=== PATIENT | female | born 1945 | race Caucasian/White ===

== ENCOUNTER → 2017-08-18 12:41 | Outpatient (CLI) | payer OTHER, SELFPAY ==
[2017-08-18 14:32] LABS: Hemoglobin A1c 10.1 % (4.2-6.3)
[2017-08-18 14:35] LABS: AST(SGOT) 22 U/L (15-37); Alanine Aminotransfer ALT/SGPT 31 U/L (13-56); Albumin, Serum 3.8 g/dL (3.2-5.0); Alkaline Phosphatase 73 U/L (45-117); Anion Gap 9 (5-15); BUN 25 mg/dL (7-18); Calcium,Total 9.1 mg/dL (8.5-10.1); Chloride 106 mmol/L (98-107); Creatinine, Serum 1.19 mg/dL (0.55-1.02); EST Glomerular Filtration Rate 48 mL/min (>60); Est Glom Filt Rate - Afr Amer 58 mL/min (>60); Glucose 127 mg/dL (74-106); Protein, Total 7.8 g/dL (6.4-8.2); Sodium Level 141 mmol/L (136-145)
== END ==
PROVIDERS: Family Provider Family Medicine; PCP Family Medicine; Visit Provider Family Medicine
DX: E11.9 Type 2 diabetes mellitus without complications (principal)
CPT/HCPCS: 36415; 80053; 83036

== ENCOUNTER → 2018-06-23 10:56 | Outpatient (CLI) | payer OTHER, SELFPAY ==
[2018-06-23 10:11] VITALS: BMI 44.8
[2018-06-23 12:31] LABS: Absolute Lymphocyte Count 2.56 X10^3/ul (0.83-4.51); Absolute Neutrophil Count 5.1 X10^3/uL (2.0-7.7); Basophil# 0.02 X10^3/uL; Basophil% 0.2 % (0-1); Eosinophil# 0.14 X10^3/uL; Eosinophils% 1.6 % (0-5); Hematocrit 43.4 % (37-47); Hemoglobin 14.2 g/dl (12.0-15.0); Lymphocyte # 2.56 X10^3/ul (4.0); Lymphocyte % 30.1 % (19-41); Mean Corp Hgb Conc 32.7 g/gl (32-36); Mean Corpuscular Hgb 29.2 pg (27.0-32.0); Mean Corpuscular Volume 89.1 fL (81-99); Mean Platelet Vol. 12.3 fl (6.2-12.0); Monocyte# 0.63 X10^3/uL; Monocyte% 7.4 % (0-10); Neutrophil # 5.14 X10^3/uL (2.7-7.7); Neutrophil % 60.5 % (47-70); Platelet Count 278 K/mm3 (150-450); RBC Distribution Width CV 13.7 % (11.6-14.6); RBC Distribution Width SD 44.2 fl (35.1-43.9); Red Blood Count 4.87 M/mm3 (4.2-5.4); White Blood Count 8.5 K/mm3 (4.4-11.0)
[2018-06-23 12:36] LABS: POSITIVE COUNT NO; POSITIVE DIFFERENTIAL NO; POSITIVE MORPHOLOGY NO
[2018-06-23 12:52] LABS: Hemoglobin A1c 10.2 % (4.2-6.3)
== END ==
PROVIDERS: Family Provider Family Medicine; PCP Family Medicine; Visit Provider Nurse Practitioner Family
DX: E11.621 Type 2 diabetes mellitus with foot ulcer (principal); L97.509 Non-pressure chronic ulcer of other part of unspecified foot with unspecified severity
CPT/HCPCS: 36415; 83036; 85025

== ENCOUNTER 2018-07-08 09:15 | Outpatient (RCR) | payer SELFPAY ==
[2018-06-23 10:11] VITALS: BMI 44.8
[2018-07-01 09:10] VITALS: BP 142/63; PULSE 87; RESP 18; TEMP 36.1; BMI 39.4
--- NOTE | 2018-07-01 12:50 | PCM.WC.HP ---
(1) Ulcer of right foot with fat layer exposed Status: Acute Current Visit: Yes Code(s): L97.512 - Non-pressure chronic ulcer of other part of right foot with fat layer exposed (2) Type 2 diabetes mellitus with diabetic polyneuropathy Status: Acute Current Visit: Yes Code(s): E11.42 - Type 2 diabetes mellitus with diabetic polyneuropathy (3) PVD (peripheral vascular disease) Status: Suspected Current Visit: Yes Code(s): I73.9 - Peripheral vascular disease, unspecified (4) Lower extremity edema Status: Acute Current Visit: Yes Code(s): R60.0 - Localized edema (5) Venous insufficiency Status: Suspected Current Visit: Yes Code(s): I87.2 - Venous insufficiency (chronic) (peripheral) (6) Delayed wound healing Status: Acute Current Visit: Yes Code(s): T14.8XXD - Other injury of unspecified body region, subsequent encounter History of Present Illness Date of Service: 07/01/18 Chief Complaint: right dorsal foot ulcer History of Wound: This 73-year-old diabetic female who was referred to the wound healing center for a dorsal distal right foot ulcer. Patient was referred to clinic by Theodore Gallardo. The patient states the ulcer has been present for a little over 2 weeks. She is unsure what caused the ulcer to start in the first place. She says she initially noticed a small ulcer starting that continued to get larger over the course of the first week. She says since, the ulcer site has remained relatively stable and has not increased any more in the surrounding redness has subsided. Patient has been dressing the ulcer site with Lotus and has been taking an antibiotic that was prescribed by Theodore Gallardo. Patient currently denies any feelings of nausea, vomiting, fever, chills. Past Medical History Past Medical History: Chronic Problems (Last Reviewed 06/23/18 @ 10:11 by Lori Maurice) Obesity (BMI 30-39.9) (Chronic) Spinal stenosis, lumbar (Chronic) Type 2 diabetes mellitus (Chronic) Allergies/Adverse Reactions: Allergies No Known Allergies Allergy (Unverified 08/14/17 15:26) Home Medications: Ambulatory Orders Medication Instructions Recorded blood sugar diagnostic strips See Dose Instructions .ROUTE 08/14/17 .MEDSUPPLY #20 ea insulin aspar prt-insulin aspart 24 unit SC BID #40 ml 08/18/17 100 unit/mL (70-30) subcutaneous soln insulin syringe U-100 with needle See Dose Instructions .ROUTE 08/18/17 0.5 mL 30 gauge x 1/2 .MEDSUPPLY #100 ea sitagliptin 50 mg-metformin 1,000 1 tab PO QDAY #90 tab 08/18/17 mg tablet amoxicillin 875 mg-potassium 1 tab PO BID #20 tab 06/23/18 clavulanate 125 mg tablet Smoking Status: Never smoker Review of Systems Constitutional: Denies: Chills, Fever, Weight Change Cardiovascular: Denies: Chest Pain, Palpitations Respiratory: Denies: Cough, Shortness of Breath Gastrointestinal: Denies: Diarrhea, Nausea, Vomiting Skin: Reports: - - Right dorsal foot ulcer - Physical Exam Vital Signs Temp Pulse Resp BP 96.9 F L 87 18 142/63 H 07/01/18 09:10 07/01/18 09:10 07/01/18 09:10 07/01/18 09:10 General: Alert, Oriented x3, Cooperative, No apparent distress Extremities: No cyanosis, Capillary Refill Less than 3 Seconds - To all distal digits of the right foot, No Calf Tenderness - Negative Heidy and Choi signs, Diminished Peripheral Pulses, Edema - Bilateral lower extremity edema Skin: Ulcer/ Wound - Ulcer with fat layer exposed noted to the dorso distal aspect of the right foot just proximal to the second and third toes. Ulcer base is a mixture of adherent slough, fibrotic tissue, biofilm, granular tissue, and some slight surrounding hyperkeratotic tissue. There is no purulence, no streaking cellulitis, no significant increase in warmth, no probing to bone, no tracking, and no undermining at this time. Surrounding skin is hairless and atrophic. Wound Measurements and Assessment WC - Nurse 1 - General Ulcer Measurement Start: 07/01/18 09:10 Freq: Status: Active Protocol: Activity Type Activity Date Activity User E-Sign Co-Sign Detail Recorded Client Recorded Date Recorded By Document 07/01/18 09:30 EVAN [id number] 07/01/18 09:31 EVAN 07/01/18 09:30 Wound Center Nurse 1 [Ulcer Assessment] 1-right dorsal foot -Combined with other wound No -Current Size (cm) - Length 1.2 -Current Size (cm) - Width 1.8 -Current Size (cm) - Depth 0.1 -Total Square Cm 2.16 -Photo Taken Yes -Epithelialization None Present -Tunneling No -Undermining/Tunneling No -Circular Undermining No -Exudate Amt Small -Exudate Type Serosanguineous -Wound Margin Flat & Intact -Granulation Amt None Present (0 %) -Slough/Fibrin Yes -Necrosis Amt Large (67-100%) -Necrotic Tissue Type Adherent Slough -Structure Exposed N/A -Texture (Becky-wound Skin Appearance) Assessed Localized Edema -Moisture (Becky-wound Skin Appearance Assessed ) Dry/Scaly -Color (Becky-wound Skin Appearance) Assessed Hemosiderin Staining -Temperature (Becky-wound Skin No Abnormality Appearance) (Pt Warm) -Tenderness on Palpation (Becky-wound No Skin Appearance) -Ulcer Cleansing Rinsed/ Irrigated with Saline -Foul Odor after Cleansing No -Anesthetic Used 5% Lidocaine Gel [Edema Assessment] -Lower Limb Edema Present Yes -Right Calf (cm) 47.2 -Right Ankle (cm) 22.8 -Left Calf (cm) 46.2 -Left Ankle (cm) 23.1 WC - Nurse 2 - General Ulcer CM Notes Start: 07/01/18 09:10 Freq: Status: Active Protocol: Activity Type Activity Date Activity User E-Sign Co-Sign Detail Recorded Client Recorded Date Recorded By Document 07/01/18 09:51 AN [id number] 07/01/18 10:09 AN 07/01/18 09:51 Wound Center Nurse 2 [Procedure/Treatment] 1-right dorsal foot -Time 09:58 -Correct Patient Yes -Correct Side, Site, Position Yes -Correct Procedure Yes -Procedure Performed Yes -Type of Procedure Debridement -Clinical Debridement Subcutaneous -Post Debridement Size (cm) - Length 1.1 -Post Debridement Size (cm) - Width 1.4 -Post Debridement Size (cm) - Depth 0.2 -Total Square Cm 1.54 -Wound/Ulcer Outcome Not Healed -Ulcer Cleansing Rinsed/ Irrigated with Saline -Foul Odor after Cleansing No -Bioengineered Tissue No -Bleeding Controlled with Pressure -Offloading Yes -Type of Offloading Surgical Shoe -Treatment Response Procedure Tolerated Well [See Physician Procedure note for Specifics] Pain Scale: 0-10 Numeric [Pain] -Is Patient Pain Free? Yes Musculoskeletal: No Tenderness to Palpation of Joints or Extremities Neurological: - - Epicritic sensation grossly absent to lower extremities Psych/Mental Status: Normal Affect, Appropriate Debridement Note Post-Debridement Measurements/Treatment WC - Nurse 2 - General Ulcer CM Notes Start: 07/01/18 09:10 Freq: Status: Active Protocol: Activity Type Activity Date Activity User E-Sign Co-Sign Detail Recorded Client Recorded Date Recorded By Document 07/01/18 09:51 AN [id number] 07/01/18 10:09 AN 07/01/18 09:51 Wound Center Nurse 2 1-right dorsal foot -Time 09:58 -Correct Patient Yes -Correct Side, Site, Position Yes -Correct Procedure Yes -Procedure Performed Yes -Type of Procedure Debridement -Clinical Debridement Subcutaneous -Post Debridement Size (cm) - Length 1.1 -Post Debridement Size (cm) - Width 1.4 -Post Debridement Size (cm) - Depth 0.2 -Total Square Cm 1.54 -Wound/Ulcer Outcome Not Healed -Ulcer Cleansing Rinsed/ Irrigated with Saline -Foul Odor after Cleansing No -Bioengineered Tissue No -Bleeding Controlled with Pressure -Offloading Yes -Type of Offloading Surgical Shoe -Treatment Response Procedure Tolerated Well Pain Scale: 0-10 Numeric Is Patient Pain Free? Yes Assessment/Plan Active Problems (Last Reviewed 06/23/18 @ 10:11 by Lori Maurice) Ulcer of right foot with fat layer exposed (Acute) Type 2 diabetes mellitus with diabetic polyneuropathy (Acute) Lower extremity edema (Acute) Delayed wound healing (Acute) Assessment: Ulcer right foot with fat layer exposed. DM with neuropathy. PVD. Lower extremity edema. Other comorbidities Plan: Initial patient examination and evaluation was performed today. Some of the overlying tissue was carefully removed manually. No aggressive debridement was performed today since the patient's blood flow is not completely known. Ulcer site was carefully dressed with Aquacel Ag followed by dry sterile dressing. Patient is to have the dressing change in this manner on a daily basis. She was instructed to not soak her foot. Patient was also dispensed a surgical shoe that we will keep the ulcer site completely offloaded. She was instructed to keep any kind of pressure away from the ulcer site. Patient currently on antibiotics per Theodore Gallardo. Patient had CBC taken last week and there was no leukocytosis noted. Patient's hemoglobin A1c was 10.8. The importance of tight glycemic control was discussed in great detail with the patient today. I also recommend nutritional supplementation with a high protein diet in order to help optimize ulcer healing potential. LEAS and Venous doppler exams ordered today and we will continue to monitor for these results. Patient was educated on all signs and symptoms of local and systemic infection, and she was instructed to go to the emergency room immediately should she notice any of these before next visit. All questions were answered to the patient and her family satisfaction. Patient will follow back up at the wound healing center in 1 week to check on progress, or sooner if needed before then.
[2018-07-08 09:42] VITALS: BP 158/70; PULSE 84; RESP 16; TEMP 36.3; BMI 39.4
--- NOTE | 2018-07-08 09:59 | PCM.WC.PN ---
(1) Ulcer of right foot with fat layer exposed Status: Acute Current Visit: Yes Code(s): L97.512 - Non-pressure chronic ulcer of other part of right foot with fat layer exposed (2) Type 2 diabetes mellitus with diabetic polyneuropathy Status: Acute Current Visit: Yes Code(s): E11.42 - Type 2 diabetes mellitus with diabetic polyneuropathy (3) PVD (peripheral vascular disease) Status: Suspected Current Visit: Yes Code(s): I73.9 - Peripheral vascular disease, unspecified (4) Lower extremity edema Status: Acute Current Visit: Yes Code(s): R60.0 - Localized edema (5) Venous insufficiency Status: Suspected Current Visit: Yes Code(s): I87.2 - Venous insufficiency (chronic) (peripheral) (6) Delayed wound healing Status: Acute Current Visit: Yes Code(s): T14.8XXD - Other injury of unspecified body region, subsequent encounter Type of Wound Chief Complaint: right dorsal foot ulcer History of Wound: This 73-year-old diabetic female who was referred to the wound healing center for a dorsal distal right foot ulcer. Patient was referred to clinic by Theodore Gallardo. The patient states the ulcer has been present for a little over 2 weeks. She is unsure what caused the ulcer to start in the first place. She says she initially noticed a small ulcer starting that continued to get larger over the course of the first week. She says since, the ulcer site has remained relatively stable and has not increased any more in the surrounding redness has subsided. Patient has been dressing the ulcer site with Lotus and has been taking an antibiotic that was prescribed by Theodore Gallardo. Patient currently denies any feelings of nausea, vomiting, fever, chills. Progress of Wound: Ulcer slightly larger in appearance this week. Patient has had daily aquacel ag dressing changes. Deny any signs of local infection. Denies any nausea, vomiting, fever, or chills. - Physical Exam Vital Signs Temp Pulse Resp BP 97.3 F L 84 16 158/70 H 07/08/18 09:42 07/08/18 09:42 07/08/18 09:42 07/08/18 09:42 General: Alert, Oriented x3, Cooperative, No apparent distress Extremities: No cyanosis, Capillary Refill Less than 3 Seconds - To all distal digits of the right foot, No Calf Tenderness - Negative Heidy and Choi signs, Diminished Peripheral Pulses, Edema - Bilateral lower extremity edema Skin: Ulcer/ Wound - Ulcer with fat layer exposed noted to the dorso distal aspect of the right foot just proximal to the second and third toes. Ulcer base is a mixture of adherent slough, fibrotic tissue, biofilm, granular tissue, and some slight surrounding hyperkeratotic tissue. There is no purulence, no streaking cellulitis, no significant increase in warmth, no probing to bone, no tracking, and no undermining at this time. Surrounding skin is hairless and atrophic. Wound Measurements and Assessment WC - Nurse 1 - General Ulcer Measurement Start: 07/01/18 09:10 Freq: Status: Active Protocol: Activity Type Activity Date Activity User E-Sign Co-Sign Detail Recorded Client Recorded Date Recorded By Document 07/08/18 09:42 EVAN [id number] 07/08/18 09:44 EVAN 07/08/18 09:42 Wound Center Nurse 1 [Ulcer Assessment] 1-right dorsal foot -Combined with other wound No -Current Size (cm) - Length 1.8 -Current Size (cm) - Width 1.8 -Current Size (cm) - Depth 0.1 -Total Square Cm 3.24 -Photo Taken No -Epithelialization Small 1-33% -Tunneling No -Undermining/Tunneling No -Circular Undermining No -Exudate Amt Small -Exudate Type Serosanguineous -Wound Margin Flat & Intact -Granulation Amt None Present (0 %) -Slough/Fibrin Yes -Necrosis Amt Large (67-100%) -Necrotic Tissue Type Adherent Slough -Structure Exposed N/A -Texture (Becky-wound Skin Appearance) Assessed -Moisture (Becky-wound Skin Appearance Assessed ) Dry/Scaly -Color (Becky-wound Skin Appearance) Assessed Erythema -Temperature (Becky-wound Skin No Abnormality Appearance) (Pt Warm) -Tenderness on Palpation (Becky-wound No Skin Appearance) -Ulcer Cleansing Rinsed/ Irrigated with Saline -Foul Odor after Cleansing No -Anesthetic Used 4% Lidocaine Solution [Edema Assessment] -Lower Limb Edema Present NA - Nurse 2 - General Ulcer CM Notes Start: 07/01/18 09:10 Freq: Status: Active Protocol: Activity Type Activity Date Activity User E-Sign Co-Sign Detail Recorded Client Recorded Date Recorded By Document 07/08/18 09:49 EVAN [id number] 07/08/18 09:52 JF 07/08/18 09:49 Wound Center Nurse 2 [Procedure/Treatment] 1-right dorsal foot -Time 09:49 -Correct Patient Yes -Correct Side, Site, Position Yes -Correct Procedure Yes -Procedure Performed Yes -Type of Procedure Debridement -Clinical Debridement Subcutaneous -Post Debridement Size (cm) - Length 1.9 -Post Debridement Size (cm) - Width 1.9 -Post Debridement Size (cm) - Depth 0.3 -Total Square Cm 3.61 -Wound/Ulcer Outcome Not Healed -Ulcer Cleansing Rinsed/ Irrigated with Saline -Foul Odor after Cleansing No -Bioengineered Tissue No -Bleeding Controlled with Pressure -Offloading Yes -Type of Offloading Surgical Shoe -Treatment Response Procedure Tolerated Well [See Physician Procedure note for Specifics] Pain Scale: 0-10 Numeric [Pain] -Is Patient Pain Free? Yes Musculoskeletal: No Tenderness to Palpation of Joints or Extremities Neurological: - - Epicritic sensation grossly absent to lower extremities Psych/Mental Status: Normal Affect, Appropriate Debridement Note Post-Debridement Measurements/Treatment WC - Nurse 2 - General Ulcer CM Notes Start: 07/01/18 09:10 Freq: Status: Active Protocol: Activity Type Activity Date Activity User E-Sign Co-Sign Detail Recorded Client Recorded Date Recorded By Document 07/01/18 09:51 AN [id number] 07/01/18 10:09 AN Document 07/08/18 09:49 JF [id number] 07/08/18 09:52 JF 07/01/18 07/08/18 09:51 09:49 Wound Center Nurse 2 1-right dorsal foot -Time 09:58 09:49 -Correct Patient Yes Yes -Correct Side, Site, Position Yes Yes -Correct Procedure Yes Yes -Procedure Performed Yes Yes -Type of Procedure Debridement Debridement -Clinical Debridement Subcutaneous Subcutaneous -Post Debridement Size (cm) - Length 1.1 1.9 -Post Debridement Size (cm) - Width 1.4 1.9 -Post Debridement Size (cm) - Depth 0.2 0.3 -Total Square Cm 1.54 3.61 -Wound/Ulcer Outcome Not Healed Not Healed -Ulcer Cleansing Rinsed/ Rinsed/ Irrigated with Irrigated with Saline Saline -Foul Odor after Cleansing No No -Bioengineered Tissue No No -Bleeding Controlled with Pressure Pressure -Offloading Yes Yes -Type of Offloading Surgical Shoe Surgical Shoe -Treatment Response Procedure Procedure Tolerated Well Tolerated Well Pain Scale: 0-10 Numeric Is Patient Pain Free? Yes Yes Wound debrided: Right dorsal distal foot Laterality: Right Type of Debridement: Excisional debridement Anesthesia Used: 4% Lidocaine Solution Depth: in the subcutaneous layer Percentage of wound debrided: 100 Instrument Used: 3mm curette Tissue Removed: Adherent slough, fibrin, biofilm, hyperkeratotic tissue Severity: Fat Layer Exposed Amount of bleeding with debridement: Mild Bleeding Controlled with: Pressure Patient tolerated procedure well Assessment/Plan Active Problems (Last Reviewed 06/23/18 @ 10:11 by Lori Maurice) Ulcer of right foot with fat layer exposed (Acute) Type 2 diabetes mellitus with diabetic polyneuropathy (Acute) Lower extremity edema (Acute) Delayed wound healing (Acute) Assessment: Ulcer right foot with fat layer exposed. DM with neuropathy. PVD. Lower extremity edema. Other comorbidities Plan: Patient was carefully examined and evaluated again today with a family member present in the room. A subcutaneous debridement was performed as noted in the clinical panel. Ulcer site was carefully dressed with Lotus followed by dry sterile dressing. Patient is to have the dressing changed in this manner on a daily basis. She was instructed to not soak her foot. Patient is to continue with surgical shoe to keep the ulcer site completely offloaded. She was instructed to keep any kind of pressure away from the ulcer site. Patient had CBC taken last week and there was no leukocytosis noted. Patient's last hemoglobin A1c was 10.8. The importance of tight glycemic control was discussed again today. I also recommend nutritional supplementation with a high protein diet in order to help optimize ulcer healing potential. LEAS and Venous doppler exams ordered and she will have these performed on July 13. We will continue to monitor for these results. Patient was educated on all signs and symptoms of local and systemic infection, and she was instructed to go to the emergency room immediately should she notice any of these before next visit. All questions were answered to the patient and her family satisfaction. Patient will follow back up at the wound healing center in 1 week to check on progress, or sooner if needed before then.
== END 2018-07-09 23:59 ==
LOC: WC 09:15
PROVIDERS: Family Provider Family Medicine; PCP Family Medicine; Visit Provider Podiatrist
DX: E11.621 Type 2 diabetes mellitus with foot ulcer (principal); L97.512 Non-pressure chronic ulcer of other part of right foot with fat layer exposed; E11.42 Type 2 diabetes mellitus with diabetic polyneuropathy; E11.51 Type 2 diabetes mellitus with diabetic peripheral angiopathy without gangrene; R60.0 Localized edema; I87.2 Venous insufficiency (chronic) (peripheral); E66.9 Obesity, unspecified; Z68.39 Body mass index [BMI] 39.0-39.9, adult; Z71.3 Dietary counseling and surveillance; Z79.899 Other long term (current) drug therapy; Z79.4 Long term (current) use of insulin
CPT/HCPCS: 11042; 99203; G0463

== ENCOUNTER 2018-08-04 08:32 | Day surgery (SDC) | payer OTHER, SELFPAY ==
[2018-07-15 09:13] VITALS: BMI 39.4
[2018-07-29 09:36] VITALS: BMI 39.4
[2018-08-02 14:31] VITALS: BMI 40.7
[2018-08-04 08:46] LABS: Hematocrit 41.9 % (37-47); Hemoglobin 13.8 g/dl (12.0-15.0); Mean Corp Hgb Conc 32.9 g/gl (32-36); Mean Corpuscular Hgb 29.9 pg (27.0-32.0); Mean Corpuscular Volume 90.7 fL (81-99); Platelet Count 305 K/mm3 (150-450); RBC Distribution Width CV 14.1 % (11.6-14.6); RBC Distribution Width SD 46.1 fl (35.1-43.9); Red Blood Count 4.62 M/mm3 (4.2-5.4); Scan Indicated on CBC? Y/N NO; White Blood Count 9.6 K/mm3 (4.4-11.0)
[2018-08-04 08:58] LABS: Albumin, Serum 3.7 g/dL (3.2-5.0); BUN 22 mg/dL (7-18); BUN/Creat Ratio 21.8 RATIO (10-20); Calcium,Total 9.2 mg/dL (8.5-10.1); Chloride 109 mmol/L (98-107); Creatinine, Serum 1.01 mg/dL (0.55-1.02); EST Glomerular Filtration Rate 57 mL/min (>60); Est Glom Filt Rate - Afr Amer 70 mL/min (>60); Estimated Creatinine Clearance 45.97 ml/min; Glucose 187 mg/dL (74-106); Phosphorus 3.6 mg/dL (2.5-4.9); Potassium 4.5 mmol/L (3.5-5.1); Sodium Level 141 mmol/L (136-145)
--- NOTE | 2018-08-04 11:24 | PCM.OPRPT ---
Problem List (1) PVD (peripheral vascular disease) Status: Suspected Report of Operation Date of Procedure: 08/04/18 Pre-Operative Diagnosis: with slow healing ulcer with PAD Post-Operative Diagnosis: Same Surgery/Procedure Performed:: 1. Ultrasound-guided access retrograde left common femoral artery. 2. Right lower extremity angiogram with catheter placed past the third order into the anterior tibial artery. 3. Balloon angioplasty of the anterior tibial artery with a 2.5 to 3 mm balloon. 4. Closure with Star close Type of Anesthesia:: Sedation,Conscious Description of Procedure: Patient brought to the Clinical Implementation Specialist. Underwent the appropriate timeout consent. Underwent sedation. Was prepped and draped in a sterile fashion. We did ultrasound-guided access retrograde in the left common femoral artery and put in a 5 German sheath. We got up and over the bifurcation did an angiogram from the right external iliac artery. This showed the distal external iliac artery through the common femoral, through the profunda, through the SFA was widely patent. Mild disease at the adductor but minimal and no flow-limiting through here. We put a quick cross catheter down into the distal SFA and imaged from there. So the popliteal artery was patent throughout its entire length. Some plaque into the tibioperoneal trunk but appeared adequate flow through this. Posterior tibial artery appeared occluded throughout. Peroneal appear to be patent all the way to the ankle and branched anterior and posterior. Anterior tibial artery was patent proximally then occluded and then recanalized distally. We then gave 5000 units of heparin brought in the long 6 German sheath. Using a Glidewire and quick cross we got through the occlusion. We confirm that we are in the distal anterior tibial artery. We replaced an 014 wire. We then ballooned with a 2.5 to 3 mm x 220 balloon. We inflated this for over 3 minutes. Completion was markedly improved with great flow through this into the DP. Peroneal still had good flow. Next segmental branches of the distal peroneal were little bit smaller. Posterior tibial artery was still occluded. We then removed out the sheath deployed a Star closed with good hemostasis she was then brought to recovery stable condition. Sedation: This 73-year-old female underwent moderate sedation given by Dr. Jose Fry. She was moderate EKG blood pressure and pulse ox for over the 30 minutes of the procedure. See the EMR for the complete record.
== END 2018-08-04 15:30 | disposition home or self-care (01) ==
PROVIDERS: Family Provider Family Medicine; PCP Family Medicine; Referring Provider Surgery Vascular Surgery; Visit Provider Surgery Vascular Surgery
DX: I70.238 Atherosclerosis of native arteries of right leg with ulceration of other part of lower leg (principal); I73.9 Peripheral vascular disease, unspecified; E11.9 Type 2 diabetes mellitus without complications; M19.90 Unspecified osteoarthritis, unspecified site; Z79.02 Long term (current) use of antithrombotics/antiplatelets; Z79.4 Long term (current) use of insulin
CPT/HCPCS: 36245; 36415; 37228; 75710; 76937; 80069; 85027; 99152; 99153; J7040; Q9967; C1725; C1760; C1769; C1887; C1894

== ENCOUNTER 2018-08-05 10:00 | Outpatient (RCR) | payer OTHER, SELFPAY ==
[2018-07-10 01:25] VITALS: BP 158/70; PULSE 84; RESP 16; TEMP 36.3
--- NOTE | 2018-07-13 06:58 | VDLE_ITS ---
Reason For Study: venous insufficiency, edema, ulcer RIGHT LEFT CFV is compressible, spontaneous, phasic, CFV is compressible, spontaneous, phasic, competent and demonstrates normal competent, and demonstrates normal augmentation. augmentation. FV is compressible, spontaneous, phasic, FV is compressible, spontaneous, phasic, competent and demonstrates normal competent and demonstrates normal augmentation. augmentation. POP V is compressible, spontaneous, phasic, POP V is compressible, spontaneous, phasic, competent and demonstrates normal competent and demonstrates normal augmentation. augmentation. T/P Trunk is compressible. T/P Trunk is compressible. PTV is compressible. PTV is compressible. RT PerV is compressible. LT PerV is compressible. S-F Junction is competent. S-F Junction is incompetent for greater GSV is competent above the knee, but than .5 seconds. incompetent below the knee for greater GSV is incompetent for greater than .5 than .5 seconds. GSV measures .37 x .44 cm. seconds throughout. GSV measures .95 x .97 SSV demonstrates chronic SVT. SSV is cm. incompetent for greater than .5 seconds. SSV SSV is incompetent for greater than .5 measures .9 x .94 cm. seconds. SSV measures .27 x .27 cm. Technical Services Manager Vein 13 cm proximal to the medial Technical Services Manager Vein 10 cm proximal to the medial malleolus is incompetent for greater than .5 malleolus is incompetent for greater than .5 seconds. seconds. Varicose veins demonstrate chronic SVT. Varicose veins demonstrate chronic SVT. Procedure Exam performed in department. Patient was scanned in reverse Trendelenburg position during reflux assessment. The exam was diagnostic. Interpretation Summary Deep veins of the lower extremities are bilaterally patent and compressible segmentally. There is no evidence of deep vein thrombosis on either side. Valvular competence appears intact within the proximal deep venous systems bilaterally. The greater saphenous veins appear bilaterally patent and compressible segmentally. The right sapheno-femoral junction is competent . The left sapheno-femoral junction is incompetent . The right greater saphenous vein appears competent above the knee. The right greater saphenous vein appears incompetent below the knee. The left greater saphenous vein appears segmentally incompetent. The right small saphenous vein is incompetent, and demonstrates chronic venous changes consistent with chronic superficial thrombophlebitis. The left small saphenous vein is incompetent. An incompetent manager process vein is identified in the right calf, located 13 centimeters proximal to the right medial malleolus. An incompetent manager process vein is noted in the left calf, located 10 centimeters proximal to the left medial malleolus. Chronic venous changes are noted involving superficial varicosities in both lower extremities. Ordering Physician: Elie Burks Performed By: Mansoor Marti RVT
--- NOTE | 2018-07-13 06:59 | ART_ITS ---
Reason For Study: PVD Left Segmental Pressures Left brachial= 148mmHg. Left posterior tibial artery = 76mmHg. Left dorsalis pedis artery = 172mmHg. Left digit = 127 mmHg. The left posterior tibial artery waveforms are triphasic. The left dorsalis pedis waveforms are biphasic. Right Segmental Pressures Right brachial= 141mmHg. Right posterior tibial artery = 119mmHg. Right digit = 69 mmHg. DPA is noncompressible. The right dorsalis pedis waveforms are biphasic. The right posterior tibial artery waveforms are biphasic. Indices The right ankle brachial index by the posterior tibial artery is .8. The right digital-brachial index is .47. DPA is noncompressible. The left ankle brachial index by the dorsalis pedis is 1.16. The left ankle brachial index by the posterior tibial artery is .51. The left digital-brachial index is .86. Interpretation Summary Biphasic Doppler waveforms are noted at ankle level on the right. Triphasic and biphasic Doppler waveforms are noted at ankle level on the left. Pulse-volume recording waveform amplitudes are satisfactory at all levels bilaterally, including low-thigh, calf, ankle, and digital levels. The resting right-ankle brachial index is mildly diminished. The resting left ankle-brachial index is normal. The right digital-brachial index is moderately diminished. The left digital-brachial index is normal. 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 Arterial flow in the left lower extremity appears to be relatively normal, but for evidence of angiosomal disease in isolated segments. Clinical correlation is advised. Ordering Physician: Elie Burks Performed By: JOSIANE TUBBS Alice
[2018-07-15 09:13] VITALS: BP 157/72; PULSE 82; RESP 16; TEMP 36.1; BMI 39.4
--- NOTE | 2018-07-15 11:29 | PCM.WC.PN ---
(1) Ulcer of right foot with fat layer exposed Status: Acute Current Visit: No Code(s): L97.512 - Non-pressure chronic ulcer of other part of right foot with fat layer exposed (2) Type 2 diabetes mellitus with diabetic polyneuropathy Status: Acute Current Visit: No Code(s): E11.42 - Type 2 diabetes mellitus with diabetic polyneuropathy (3) PVD (peripheral vascular disease) Status: Suspected Current Visit: No Code(s): I73.9 - Peripheral vascular disease, unspecified (4) Lower extremity edema Status: Acute Current Visit: No Code(s): R60.0 - Localized edema (5) Venous insufficiency Status: Suspected Current Visit: No Code(s): I87.2 - Venous insufficiency (chronic) (peripheral) (6) Delayed wound healing Status: Acute Current Visit: No Code(s): T14.8XXD - Other injury of unspecified body region, subsequent encounter (7) Obesity (BMI 30-39.9) Status: Chronic Current Visit: No Code(s): E66.9 - Obesity, unspecified Type of Wound Chief Complaint: right dorsal foot ulcer History of Wound: This 73-year-old diabetic female who was referred to the wound healing center for a dorsal distal right foot ulcer. Patient was referred to clinic by Theodore Gallardo. The patient states the ulcer has been present for a little over 2 weeks. She is unsure what caused the ulcer to start in the first place. She says she initially noticed a small ulcer starting that continued to get larger over the course of the first week. She says since, the ulcer site has remained relatively stable and has not increased any more in the surrounding redness has subsided. Patient has been dressing the ulcer site with Lotus and has been taking an antibiotic that was prescribed by Theodore Gallardo. Patient currently denies any feelings of nausea, vomiting, fever, chills. Progress of Wound: Ulcer slightly larger in appearance this week. Denies any nausea, vomiting, fever, or chills. - Physical Exam Vital Signs Temp Pulse Resp BP 97 F L 82 16 157/72 H 07/15/18 09:13 07/15/18 09:13 07/15/18 09:13 07/15/18 09:13 General: Alert, Oriented x3, Cooperative, No apparent distress Extremities: No cyanosis, Capillary Refill Less than 3 Seconds - To all digits of the right foot, No Calf Tenderness - Negative Heidy and Choi signs, Diminished Peripheral Pulses, Edema - Bilateral lower extremity edema Skin: Ulcer/ Wound - Ulcer with fat layer exposed noted to the dorso distal aspect of the right foot just proximal to the second and third toes. Ulcer slightly worse this week. Ulcer base is a mixture of adherent slough, fibrotic tissue, biofilm, granular tissue, and some slight surrounding hyperkeratotic tissue. There is no purulence, no streaking cellulitis, no significant increase in warmth, no probing to bone, no tracking, and no undermining at this time. Surrounding skin is hairless and atrophic. Wound Measurements and Assessment WC - Nurse 1 - General Ulcer Measurement Start: 07/15/18 09:13 Freq: Status: Active Protocol: Activity Type Activity Date Activity User E-Sign Co-Sign Detail Recorded Client Recorded Date Recorded By Document 07/15/18 09:13 [facility] [id number] 07/15/18 09:18 [facility] 07/15/18 09:13 Wound Center Nurse 1 [Ulcer Assessment] 1-right dorsal foot -Combined with other wound No -Current Size (cm) - Length 1.8 -Current Size (cm) - Width 1.5 -Current Size (cm) - Depth 0.2 -Total Square Cm 2.70 -Photo Taken No -Epithelialization None Present -Tunneling No -Undermining/Tunneling No -Circular Undermining No -Exudate Amt Small -Exudate Type Serosanguineous -Wound Margin Distinct, Outline Attached -Granulation Amt None Present (0 %) -Slough/Fibrin Yes -Necrosis Amt Large (67-100%) -Necrotic Tissue Type Adherent Slough -Texture (Becky-wound Skin Appearance) Assessed Scarring -Moisture (Becky-wound Skin Appearance Assessed ) -Color (Becky-wound Skin Appearance) Assessed Erythema -Temperature (Becky-wound Skin No Abnormality Appearance) (Pt Warm) -Tenderness on Palpation (Becky-wound Yes Skin Appearance) -Ulcer Cleansing Rinsed/ Irrigated with Saline -Foul Odor after Cleansing No -Anesthetic Used 5% Lidocaine Gel [Edema Assessment] -Lower Limb Edema Present Yes -Right Calf (cm) 48.5 -Right Ankle (cm) 23 WC - Nurse 2 - General Ulcer CM Notes Start: 07/15/18 09:13 Freq: Status: Active Protocol: Activity Type Activity Date Activity User E-Sign Co-Sign Detail Recorded Client Recorded Date Recorded By Document 07/15/18 09:29 AN [id number] 07/15/18 09:41 AN 07/15/18 09:29 Wound Center Nurse 2 [Procedure/Treatment] 1-right dorsal foot -Time 09:32 -Correct Patient Yes -Correct Side, Site, Position Yes -Correct Procedure Yes -Procedure Performed Yes -Type of Procedure Debridement -Clinical Debridement Subcutaneous -Post Debridement Size (cm) - Length 1.9 -Post Debridement Size (cm) - Width 1.9 -Post Debridement Size (cm) - Depth 0.3 -Total Square Cm 3.61 -Wound/Ulcer Outcome Not Healed -Ulcer Cleansing Rinsed/ Irrigated with Saline -Foul Odor after Cleansing No -Bioengineered Tissue No -Bleeding Controlled with Pressure -Offloading No -Treatment Response Procedure Tolerated Well [See Physician Procedure note for Specifics] Pain Scale: 0-10 Numeric [Pain] -Is Patient Pain Free? Yes Musculoskeletal: No Tenderness to Palpation of Joints or Extremities Neurological: - - Epicritic sensation grossly absent to lower extremities Psych/Mental Status: Normal Affect, Appropriate Debridement Note Post-Debridement Measurements/Treatment WC - Nurse 2 - General Ulcer CM Notes Start: 07/15/18 09:13 Freq: Status: Active Protocol: Activity Type Activity Date Activity User E-Sign Co-Sign Detail Recorded Client Recorded Date Recorded By Document 07/15/18 09:29 AN [id number] 07/15/18 09:41 AN 07/15/18 09:29 Wound Center Nurse 2 1-right dorsal foot -Time 09:32 -Correct Patient Yes -Correct Side, Site, Position Yes -Correct Procedure Yes -Procedure Performed Yes -Type of Procedure Debridement -Clinical Debridement Subcutaneous -Post Debridement Size (cm) - Length 1.9 -Post Debridement Size (cm) - Width 1.9 -Post Debridement Size (cm) - Depth 0.3 -Total Square Cm 3.61 -Wound/Ulcer Outcome Not Healed -Ulcer Cleansing Rinsed/ Irrigated with Saline -Foul Odor after Cleansing No -Bioengineered Tissue No -Bleeding Controlled with Pressure -Offloading No -Treatment Response Procedure Tolerated Well Pain Scale: 0-10 Numeric Is Patient Pain Free? Yes Wound debrided: Right dorsal distal foot Laterality: Right Type of Debridement: Excisional debridement Anesthesia Used: 4% Lidocaine Solution Depth: in the subcutaneous layer Percentage of wound debrided: 100 Instrument Used: 3mm curette Tissue Removed: Adherent slough, fibrin, biofilm, hyperkeratotic tissue Severity: Fat Layer Exposed Amount of bleeding with debridement: Mild Bleeding Controlled with: Pressure Patient tolerated procedure well Assessment/Plan Assessment: Ulcer right foot with fat layer exposed. DM with neuropathy. PVD. Lower extremity edema. Other comorbidities Plan: Patient was carefully examined and evaluated again today with a family member present in the room. A subcutaneous debridement was performed as noted in the clinical panel. Ulcer site was carefully dressed with Aquacel Ag followed by dry sterile dressing. Patient is to have the dressing changed in this manner on a daily basis. She was instructed to not soak her foot. Patient is to continue with surgical shoe to keep the ulcer site completely offloaded. She was instructed to keep any kind of pressure away from the ulcer site.Patient's last hemoglobin A1c was 10.8. The importance of tight glycemic control was discussed again today. I also recommend nutritional supplementation with a high protein diet in order to help optimize ulcer healing potential. LEAS and Venous doppler exams ordered and performed on July 13. Venous studies are not made available yet at this time. There is diminished toe brachial index noted on the right side as well as noncompressible DP artery. The official read of this report is not completed yet. Due to the appearance of the ulcer site, as well as the preliminary LEAS study results, I feel it is important for this patient to be seen in a timely manner by a vascular surgeon to determine if any immediate intervention needs to take place at this time. This patient will see Dr. Linda in [place] tomorrow for evaluation. We will continue to monitor for these results. Patient was educated on all signs and symptoms of local and systemic infection, and she was instructed to go to the emergency room immediately should she notice any of these before next visit. All questions were answered to the patient and her family satisfaction. Patient will follow back up at the wound healing center in 1 week to check on progress, or sooner if needed before then.
[2018-07-15 17:11] LABS: M R Staph aureus DNA By PCR Negative (Negative); Specimen Processing Control PASS; Staph aureus DNA By PCR POSITIVE (Negative)
[2018-07-15 17:12] LABS: Probe Check PASS
[2018-07-22 09:27] VITALS: BP 148/64; PULSE 76; RESP 18; TEMP 36.1; BMI 39.4
--- NOTE | 2018-07-22 09:55 | PCM.WC.PN ---
(1) Ulcer of right foot with fat layer exposed Status: Acute Current Visit: No Code(s): L97.512 - Non-pressure chronic ulcer of other part of right foot with fat layer exposed (2) Type 2 diabetes mellitus with diabetic polyneuropathy Status: Acute Current Visit: No Code(s): E11.42 - Type 2 diabetes mellitus with diabetic polyneuropathy (3) PVD (peripheral vascular disease) Status: Suspected Current Visit: No Code(s): I73.9 - Peripheral vascular disease, unspecified (4) Lower extremity edema Status: Acute Current Visit: No Code(s): R60.0 - Localized edema (5) Venous insufficiency Status: Suspected Current Visit: No Code(s): I87.2 - Venous insufficiency (chronic) (peripheral) (6) Delayed wound healing Status: Acute Current Visit: No Code(s): T14.8XXD - Other injury of unspecified body region, subsequent encounter (7) Obesity (BMI 30-39.9) Status: Chronic Current Visit: No Code(s): E66.9 - Obesity, unspecified Type of Wound Chief Complaint: right dorsal foot ulcer History of Wound: This 73-year-old diabetic female who was referred to the wound healing center for a dorsal distal right foot ulcer. Patient was referred to clinic by Theodore Gallardo. The patient states the ulcer has been present for a little over 2 weeks. She is unsure what caused the ulcer to start in the first place. She says she initially noticed a small ulcer starting that continued to get larger over the course of the first week. She says since, the ulcer site has remained relatively stable and has not increased any more in the surrounding redness has subsided. Patient has been dressing the ulcer site with Lotus and has been taking an antibiotic that was prescribed by Theodore Gallardo. Patient currently denies any feelings of nausea, vomiting, fever, chills. Progress of Wound: Ulcer slightly smaller this week. Denies any nausea, vomiting, fever, or chills. - Physical Exam Vital Signs Temp Pulse Resp BP 97 F L 76 18 148/64 H 07/22/18 09:27 07/22/18 09:27 07/22/18 09:27 07/22/18 09:27 General: Alert, Oriented x3, Cooperative, No apparent distress Extremities: Capillary Refill Less than 3 Seconds - To all digits of the right foot, No Calf Tenderness - Negative Heidy and Choi signs, Diminished Peripheral Pulses, Edema - Bilateral lower extremity edema Skin: Ulcer/ Wound - Ulcer with fat layer exposed noted to the dorso distal aspect of the right foot just proximal to the second and third toes. Ulcer slightly smaller this week. Ulcer base is a mixture of adherent slough, fibrotic tissue, biofilm, granular tissue, and some slight surrounding hyperkeratotic tissue. There is no purulence, no streaking cellulitis, no significant increase in warmth, no probing to bone, no tracking, and no undermining at this time. Surrounding skin is hairless and atrophic. Wound Measurements and Assessment - Nurse 1 - General Ulcer Measurement Start: 07/15/18 09:13 Freq: Status: Active Protocol: Activity Type Activity Date Activity User E-Sign Co-Sign Detail Recorded Client Recorded Date Recorded By Document 07/22/18 09:27 MT [id number] 07/22/18 09:33 MT 07/22/18 09:27 Wound Center Nurse 1 [Ulcer Assessment] 1-right dorsal foot -Combined with other wound No -Current Size (cm) - Length 1.5 -Current Size (cm) - Width 2.0 -Current Size (cm) - Depth 0.3 -Total Square Cm 3.00 -Photo Taken No -Tunneling No -Undermining/Tunneling No -Circular Undermining No -Exudate Amt Small -Exudate Type Serosanguineous -Wound Margin Flat & Intact -Granulation Amt None Present (0 %) -Slough/Fibrin Yes -Necrosis Amt Large (67-100%) -Texture (Becky-wound Skin Appearance) Assessed Localized Edema -Moisture (Becky-wound Skin Appearance Assessed ) -Color (Becky-wound Skin Appearance) Assessed -Temperature (Becky-wound Skin No Abnormality Appearance) (Pt Warm) -Tenderness on Palpation (Becky-wound No Skin Appearance) -Ulcer Cleansing Rinsed/ Irrigated with Saline -Anesthetic Used 5% Lidocaine Gel [Edema Assessment] -Right Calf (cm) 48 -Right Ankle (cm) 26 - Nurse 2 - General Ulcer CM Notes Start: 07/15/18 09:13 Freq: Status: Active Protocol: Activity Type Activity Date Activity User E-Sign Co-Sign Detail Recorded Client Recorded Date Recorded By Document 07/22/18 09:49 AN [id number] 07/22/18 09:52 AN 07/22/18 09:49 Wound Center Nurse 2 [Procedure/Treatment] 1-right dorsal foot -Time 09:50 -Correct Patient Yes -Correct Side, Site, Position Yes -Correct Procedure Yes -Procedure Performed Yes -Type of Procedure Debridement -Clinical Debridement Subcutaneous -Post Debridement Size (cm) - Length 1.6 -Post Debridement Size (cm) - Width 1.8 -Post Debridement Size (cm) - Depth 0.3 -Total Square Cm 2.88 -Wound/Ulcer Outcome Not Healed -Ulcer Cleansing Rinsed/ Irrigated with Saline -Foul Odor after Cleansing No -Bioengineered Tissue No -Bleeding Controlled with Pressure -Type of Offloading Surgical Shoe -Treatment Response Procedure Tolerated Well [See Physician Procedure note for Specifics] Pain Scale: 0-10 Numeric [Pain] -Is Patient Pain Free? Yes Musculoskeletal: No Tenderness to Palpation of Joints or Extremities Neurological: - - Epicritic sensation grossly absent to lower extremities Psych/Mental Status: Normal Affect, Appropriate Debridement Note Post-Debridement Measurements/Treatment WC - Nurse 2 - General Ulcer CM Notes Start: 07/15/18 09:13 Freq: Status: Active Protocol: Activity Type Activity Date Activity User E-Sign Co-Sign Detail Recorded Client Recorded Date Recorded By Document 07/15/18 09:29 AN [id number] 07/15/18 09:41 AN Document 07/22/18 09:49 AN [id number] 07/22/18 09:52 AN 07/15/18 07/22/18 09:29 09:49 Wound Center Nurse 2 1-right dorsal foot -Time 09:32 09:50 -Correct Patient Yes Yes -Correct Side, Site, Position Yes Yes -Correct Procedure Yes Yes -Procedure Performed Yes Yes -Type of Procedure Debridement Debridement -Clinical Debridement Subcutaneous Subcutaneous -Post Debridement Size (cm) - Length 1.9 1.6 -Post Debridement Size (cm) - Width 1.9 1.8 -Post Debridement Size (cm) - Depth 0.3 0.3 -Total Square Cm 3.61 2.88 -Wound/Ulcer Outcome Not Healed Not Healed -Ulcer Cleansing Rinsed/ Rinsed/ Irrigated with Irrigated with Saline Saline -Foul Odor after Cleansing No No -Bioengineered Tissue No No -Bleeding Controlled with Pressure Pressure -Offloading No -Type of Offloading Surgical Shoe -Treatment Response Procedure Procedure Tolerated Well Tolerated Well Pain Scale: 0-10 Numeric Is Patient Pain Free? Yes Yes Wound debrided: Right dorsal distal foot Laterality: Right Type of Debridement: Excisional debridement Anesthesia Used: 4% Lidocaine Solution Depth: in the subcutaneous layer Percentage of wound debrided: 100 Instrument Used: 3mm curette Tissue Removed: Adherent slough, fibrin, biofilm, hyperkeratotic tissue Severity: Fat Layer Exposed Amount of bleeding with debridement: Mild Bleeding Controlled with: Pressure Patient tolerated procedure well Assessment/Plan Assessment: Ulcer right foot with fat layer exposed. DM with neuropathy. PVD. Lower extremity edema. Other comorbidities Plan: Patient was carefully examined and evaluated again today with a family member present in the room. A subcutaneous debridement was performed as noted in the clinical panel. Ulcer site was carefully dressed with Aquacel Ag followed by dry sterile dressing. Patient is to have the dressing changed in this manner on a daily basis. She was instructed to not soak her foot. Patient is to continue with surgical shoe to keep the ulcer site completely offloaded. She was instructed to keep any kind of pressure away from the ulcer site.Patient's last hemoglobin A1c was 10.8. The importance of tight glycemic control was discussed again today. I also recommend nutritional supplementation with a high protein diet in order to help optimize ulcer healing potential. LEAS and Venous doppler exams performed and detailed report in patient's chart. There is diminished toe brachial index noted on the right side as well as noncompressible DP artery. Patient saw Dr. Linda in [place] last Thursday. Since that appointment she was referred back to his partner Dr. Fry who evaluated the patient yesterday and will be scheduling her for angiogram next week. We will continue to monitor for these results. She is to continue with Augmentin until complete. Patient was educated on all signs and symptoms of local and systemic infection, and she was instructed to go to the emergency room immediately should she notice any of these before next visit. All questions were answered to the patient and her family satisfaction. Patient will follow back up at the wound healing center in 1 week to check on progress, or sooner if needed before then.
--- NOTE | 2018-07-22 10:02 | PN.PCM_ITS ---
(1) Ulcer of right foot with fat layer exposed Status: Acute Current Visit: No Code(s): L97.512 - Non-pressure chronic ulcer of other part of right foot with fat layer exposed (2) Type 2 diabetes mellitus with diabetic polyneuropathy Status: Acute Current Visit: No Code(s): E11.42 - Type 2 diabetes mellitus with diabetic polyneuropathy (3) PVD (peripheral vascular disease) Status: Suspected Current Visit: No Code(s): I73.9 - Peripheral vascular disease, unspecified (4) Lower extremity edema Status: Acute Current Visit: No Code(s): R60.0 - Localized edema (5) Venous insufficiency Status: Suspected Current Visit: No Code(s): I87.2 - Venous insufficiency (chronic) (peripheral) (6) Delayed wound healing Status: Acute Current Visit: No Code(s): T14.8XXD - Other injury of unspecified body region, subsequent encounter (7) Obesity (BMI 30-39.9) Status: Chronic Current Visit: No Code(s): E66.9 - Obesity, unspecified Type of Wound Chief Complaint: right dorsal foot ulcer History of Wound: This 73-year-old diabetic female who was referred to the wound healing center for a dorsal distal right foot ulcer. Patient was referred to clinic by Theodore Gallardo. The patient states the ulcer has been present for a little over 2 weeks. She is unsure what caused the ulcer to start in the first place. She says she initially noticed a small ulcer starting that continued to get larger over the course of the first week. She says since, the ulcer site has remained relatively stable and has not increased any more in the surrounding redness has subsided. Patient has been dressing the ulcer site with Lotus and has been taking an antibiotic that was prescribed by Theodore Gallardo. Patient currently denies any feelings of nausea, vomiting, fever, chills. Progress of Wound: Ulcer slightly smaller this week. Denies any nausea, vomit ing, fever, or chills. - Physical Exam Vital Signs Temp Pulse Resp BP 97 F L 76 18 148/64 H 07/22/18 09:27 07/22/18 09:27 07/22/18 09:27 07/22/18 09:27 General: Alert, Oriented x3, Cooperative, No apparent distress Extremities: Capillary Refill Less than 3 Seconds - To all digits of the right foot, No Calf Tenderness - Negative Heidy and Choi signs, Diminished Peripheral Pulses, Edema - Bilateral lower extremity edema Skin: Ulcer/ Wound - Ulcer with fat layer exposed noted to the dorso distal aspect of the right foot just proximal to the second and third toes. Ulcer slightly smaller this week. Ulcer base is a mixture of adherent slough, fibrotic tissue, biofilm, granular tissue, and some slight surrounding hyperkeratotic tissue. There is no purulence, no streaking cellulitis, no significant increase in warmth, no probing to bone, no tracking, and no undermining at this time. Surrounding skin is hairless and atrophic. Wound Measurements and Assessment WC - Nurse 1 - General Ulcer Measurement Start: 07/15/18 09:13 Freq: Status: Active Protocol: Activity Type Activity Date Activity User E-Sign Co-Sign Detail Recorded Client Recorded Date Recorded By Document 07/22/18 09:27 MT [id number] 07/22/18 09:33 OK 07/22/18 09:27 Wound Center Nurse 1 [Ulcer Assessment] 1-right dorsal foot -Combined with other wound No -Current Size (cm) - Length 1.5 -Current Size (cm) - Width 2.0 -Current Size (cm) - Depth 0.3 -Total Square Cm 3.00 -Photo Taken No -Tunneling No -Undermining/Tunneling No -Circular Undermining No -Exudate Amt Small -Exudate Type Serosanguineous -Wound Margin Flat & Intact -Granulation Amt None Present (0 %) -Slough/Fibrin Yes -Necrosis Amt Large (67-100%) -Texture (Becky-wound Skin Appearance) Assessed Localized Edema -Moisture (Becky-wound Skin Appearance Assessed ) -Color (Becky-wound Skin Appearance) Assessed -Temperature (Becky-wound Skin No Abnormality Appearance) (Pt Warm) -Tenderness on Palpation (Becky-wound No Skin Appearance) -Ulcer Cleansing Rinsed/ Irrigated with Saline -Anesthetic Used 5% Lidocaine Gel [Edema Assessment] -Right Calf (cm) 48 -Right Ankle (cm) 26 - Nurse 2 - General Ulcer CM Notes Start: 07/15/18 09:13 Freq: Status: Active Protocol: Activity Type Activity Date Activity User E-Sign Co-Sign Detail Recorded Client Recorded Date Recorded By Document 07/22/18 09:49 [id number] 07/22/18 09:52 AN 07/22/18 09:49 Wound Center Nurse 2 [Procedure/Treatment] 1-right dorsal foot -Time 09:50 -Correct Patient Yes -Correct Side, Site, Position Yes -Correct Procedure Yes -Procedure Performed Yes -Type of Procedure Debridement -Clinical Debridement Subcutaneous -Post Debridement Size (cm) - Length 1.6 -Post Debridement Size (cm) - Width 1.8 -Post Debridement Size (cm) - Depth 0.3 -Total Square Cm 2.88 -Wound/Ulcer Outcome Not Healed -Ulcer Cleansing Rinsed/ Irrigated with Saline -Foul Odor after Cleansing No -Bioengineered Tissue No -Bleeding Controlled with Pressure -Type of Offloading Surgical Shoe -Treatment Response Procedure Tolerated Well [See Physician Procedure note for Specifics] Pain Scale: 0-10 Numeric [Pain] -Is Patient Pain Free? Yes Musculoskeletal: No Tenderness to Palpation of Joints or Extremities Neurological: - - Epicritic sensation grossly absent to lower extremities Psych/Mental Status: Normal Affect, Appropriate Debridement Note Post-Debridement Measurements/Treatment WC - Nurse 2 - General Ulcer CM Notes Start: 07/15/18 09:13 Freq: Status: Active Protocol: Activity Type Activity Date Activity User E-Sign Co-Sign Detail Recorded Client Recorded Date Recorded By Document 07/15/18 09:29 AN [id number] 07/15/18 09:41 AN Document 07/22/18 09:49 AN [id number] 07/22/18 09:52 AN 07/15/18 07/22/18 09:29 09:49 Wound Center Nurse 2 1-right dorsal foot -Time 09:32 09:50 -Correct Patient Yes Yes -Correct Side, Site, Position Yes Yes -Correct Procedure Yes Yes -Procedure Performed Yes Yes -Type of Procedure Debridement Debridement -Clinical Debridement Subcutaneous Subcutaneous -Post Debridement Size (cm) - Length 1.9 1.6 -Post Debridement Size (cm) - Width 1.9 1.8 -Post Debridement Size (cm) - Depth 0.3 0.3 -Total Square Cm 3.61 2.88 -Wound/Ulcer Outcome Not Healed Not Healed -Ulcer Cleansing Rinsed/ Rinsed/ Irrigated with Irrigated with Saline Saline -Foul Odor after Cleansing No No -Bioengineered Tissue No No -Bleeding Controlled with Pressure Pressure -Offloading No -Type of Offloading Surgical Shoe -Treatment Response Procedure Procedure Tolerated Well Tolerated Well Pain Scale: 0-10 Numeric Is Patient Pain Free? Yes Yes Wound debrided: Right dorsal distal foot Laterality: Right Type of Debridement: Excisional debridement Anesthesia Used: 4% Lidocaine Solution Depth: in the subcutaneous layer Percentage of wound debrided: 100 Instrument Used: 3mm curette Tissue Removed: Adherent slough, fibrin, biofilm, hyperkeratotic tissue Severity: Fat Layer Exposed Amount of bleeding with debridement: Mild Bleeding Controlled with: Pressure Patient tolerated procedure well Assessment/Plan Assessment: Ulcer right foot with fat layer exposed. DM with neuropathy. PVD. Lower extremity edema. Other comorbidities Plan: Patient was carefully examined and evaluated again today with a family member present in the room. A subcutaneous debridement was performed as noted in the clinical panel. Ulcer site was carefully dressed with Aquacel Ag followed by dry sterile dressing. Patient is to have the dressing changed in this manner on a daily basis. She was instructed to not soak her foot. Patient is to continue with surgical shoe to keep the ulcer site completely offloaded. She was instructed to keep any kind of pressure away from the ulcer site.Patient's last hemoglobin A1c was 10.8. The importance of tight glycemic control was discussed again today. I also recommend nutritional supplementation with a high protein diet in order to help optimize ulcer healing potential. LEAS and Venous doppler exams performed and detailed report in patient's chart. There is diminished toe brachial index noted on the right side as well as noncompressible DP artery. Patient saw Dr. Linda in [place] last Thursday. Since that appointment she was referred back to his partner Dr. Fry who evaluated the patient yesterday and will be scheduling her for angiogram next week. We will continue to monitor for these results. She is to continue with Augmentin until complete. Patient was educated on all signs and symptoms of local and systemic infection, and she was instructed to go to the emergency room immediately should she notice any of these before next visit. All questions w ere answered to the patient and her family satisfaction. Patient will follow back up at the wound healing center in 1 week to check on progress, or sooner if needed before then.
[2018-07-29 09:36] VITALS: BP 152/74; PULSE 83; RESP 16; TEMP 36.1; BMI 39.4
--- NOTE | 2018-07-29 11:42 | PN.PCM_ITS ---
(1) Ulcer of right foot with fat layer exposed Status: Acute Current Visit: No Code(s): L97.512 - Non-pressure chronic ulcer of other part of right foot with fat layer exposed (2) Type 2 diabetes mellitus with diabetic polyneuropathy Status: Acute Current Visit: No Code(s): E11.42 - Type 2 diabetes mellitus with diabetic polyneuropathy (3) PVD (peripheral vascular disease) Status: Suspected Current Visit: No Code(s): I73.9 - Peripheral vascular disease, unspecified (4) Lower extremity edema Status: Acute Current Visit: No Code(s): R60.0 - Localized edema (5) Venous insufficiency Status: Suspected Current Visit: No Code(s): I87.2 - Venous insufficiency (chronic) (peripheral) (6) Delayed wound healing Status: Acute Current Visit: No Code(s): T14.8XXD - Other injury of unspecified body region, subsequent encounter (7) Obesity (BMI 30-39.9) Status: Chronic Current Visit: No Code(s): E66.9 - Obesity, unspecified Type of Wound Date of Service: 07/29/18 Chief Complaint: right dorsal foot ulcer History of Wound: This 73-year-old diabetic female who was referred to the wound healing center for a dorsal distal right foot ulcer. Patient was referred to clinic by Theodore Gallardo. The patient states the ulcer has been present for a little over 2 weeks. She is unsure what caused the ulcer to start in the first place. She says she initially noticed a small ulcer starting that continued to get larger over the course of the first week. She says since, the ulcer site has remained relatively stable and has not increased any more in the surrounding redness has subsided. Patient has been dressing the ulcer site with Lotus and has been taking an antibiotic that was prescribed by Theodore Gallardo. Patient currently denies any feelings of nausea, vomiting, fever, chills. Progress of Wound: Ulcer slightly smaller this week again. Finished antibiotic. Denies any nausea, vomiting, fever, or chills. - Physical Exam Vital Signs Temp Pulse Resp BP 96.9 F L 83 16 152/74 H 07/29/18 09:36 07/29/18 09:36 07/29/18 09:36 07/29/18 09:36 General: Alert, Oriented x3, Cooperative, No apparent distress Extremities: Capillary Refill Less than 3 Seconds - To all digits of the right foot, No Calf Tenderness - Negative Heidy and Choi signs, Diminished Peripheral Pulses, Edema - Bilateral lower extremity edema Skin: Ulcer/ Wound - Ulcer with fat layer exposed noted to the dorso distal aspect of the right foot just proximal to the second and third toes. Ulcer slightly smaller this week again. Ulcer base is a mixture of adherent slough, fibrotic tissue, biofilm, granular tissue, and some slight surrounding hyperkeratotic tissue. There is no purulence, no streaking cellulitis, no significant increase in warmth, no probing to bone, no tracking, and no undermining at this time. Surrounding skin is hairless and atrophic. Wound Measurements and Assessment WC - Nurse 1 - General Ulcer Measurement Start: 07/15/18 09:13 Freq: Status: Active Protocol: Activity Type Activity Date Activity User E-Sign Co-Sign Detail Recorded Client Recorded Date Recorded By Document 07/29/18 09:36 [facility] [id number] 07/29/18 09:42 BM 07/29/18 09:36 Wound Center Nurse 1 [Ulcer Assessment] 1-right dorsal foot -Combined with other wound No -Current Size (cm) - Length 1.4 -Current Size (cm) - Width 1.4 -Current Size (cm) - Depth 0.2 -Total Square Cm 1.96 -Photo Taken No -Epithelialization None Present -Tunneling No -Undermining/Tunneling No -Circular Undermining No -Exudate Amt Small -Exudate Type Serous -Wound Margin Flat & Intact -Granulation Amt Small (1-33%) -Granulation Quality [place] -Slough/Fibrin Yes -Necrosis Amt Large (67-100%) -Necrotic Tissue Type Adherent Slough -Texture (Becky-wound Skin Appearance) Assessed, Scarring -Moisture (Becky-wound Skin Appearance Assessed ) -Color (Becky-wound Skin Appearance) Assessed -Temperature (Becky-wound Skin No Abnormality Appearance) (Pt Warm) -Tenderness on Palpation (Becky-wound No Skin Appearance) -Ulcer Cleansing Rinsed/ Irrigated with Saline -Foul Odor after Cleansing No -Anesthetic Used 5% Lidocaine Gel WC - Nurse 2 - General Ulcer CM Notes Start: 07/15/18 09:13 Freq: Status: Active Protocol: Activity Type Activity Date Activity User E-Sign Co-Sign Detail Recorded Client Recorded Date Recorded By Document 07/29/18 09:56 AN [id number] 07/29/18 10:03 AN 07/29/18 09:56 Wound Center Nurse 2 [Procedure/Treatment] -Time 09:59 -Correct Patient Yes -Correct Side, Site, Position Yes -Correct Procedure Yes -Procedure Performed Yes -Type of Procedure Debridement -Clinical Debridement Subcutaneous -Post Debridement Size (cm) - Length 1.6 -Post Debridement Size (cm) - Width 1.7 -Post Debridement Size (cm) - Depth 0.3 -Total Square Cm 2.72 -Wound/Ulcer Outcome Not Healed -Ulcer Cleansing Rinsed/ Irrigated with Saline -Foul Odor after Cleansing No -Bioengineered Tissue No -Bleeding Controlled with Pressure -Offloading Yes -Type of Offloading Surgical Shoe -Treatment Response Procedure Tolerated Well [See Physician Procedure note for Specifics] Pain Scale: 0-10 Numeric [Pain] -Is Patient Pain Free? Yes Musculoskeletal: No Tenderness to Palpation of Joints or Extremities Neurological: - - Epicritic sensation grossly absent to lower extremities Psych/Mental Status: Normal Affect, Appropriate Debridement Note Post-Debridement Measurements/Treatment WC - Nurse 2 - General Ulcer CM Notes Start: 07/15/18 09:13 Freq: Status: Active Protocol: Activity Type Activity Date Activity User E-Sign Co-Sign Detail Recorded Client Recorded Date Recorded By Document 07/15/18 09:29 AN [id number] 07/15/18 09:41 AN Document 07/22/18 09:49 AN [id number] 07/22/18 09:52 AN Document 07/29/18 09:56 AN [id number] 07/29/18 10:03 AN 07/15/18 07/22/18 07/29/18 09:29 09:49 09:56 Wound Center Nurse 2 1-right dorsal foot -Time 09:32 09:50 09:59 -Correct Patient Yes Yes Yes -Correct Side, Site, Position Yes Yes Yes -Correct Procedure Yes Yes Yes -Procedure Performed Yes Yes Yes -Type of Procedure Debridement Debridement Debridement -Clinical Debridement Subcutaneous Subcutaneous Subcutaneous -Post Debridement Size (cm) - Length 1.9 1.6 1.6 -Post Debridement Size (cm) - Width 1.9 1.8 1.7 -Post Debridement Size (cm) - Depth 0.3 0.3 0.3 -Total Square Cm 3.61 2.88 2.72 -Wound/Ulcer Outcome Not Healed Not Healed Not Healed -Ulcer Cleansing Rinsed/ Rinsed/ Rinsed/ Irrigated with Irrigated with Irrigated with Saline Saline Saline -Foul Odor after Cleansing No No No -Bioengineered Tissue No No No -Bleeding Controlled with Pressure Pressure Pressure -Offloading No Yes -Type of Offloading Surgical Shoe Surgical Shoe -Treatment Response Procedure Procedure Procedure Tolerated Well Tolerated Well Tolerated Well Pain Scale: 0-10 Numeric Is Patient Pain Free? Yes Yes Yes Wound debrided: Right dorsal distal foot Laterality: Right Type of Debridement: Excisional debridement Anesthesia Used: 4% Lidocaine Solution Depth: in the subcutaneous layer Percentage of wound debrided: 100 Instrument Used: 5mm curette Tissue Removed: Adherent slough, fibrin, biofilm Severity: Fat Layer Exposed Amount of bleeding with debridement: Mild Bleeding Controlled with: Pressure Patient tolerated procedure well Assessment/Plan Assessment: Ulcer right foot with fat layer exposed. DM with neuropathy. PVD. Lower extremity edema. Other comorbidities Plan: Patient was carefully examined and evaluated again today with a family member present in the room. Another subcutaneous debridement was performed as noted in the clinical panel. Ulcer site was carefully dressed with Aquacel Ag followed by dry sterile dressing. Patient is to have the dressing changed in this manner on a daily basis. She was instructed to not soak her foot. Patient is to continue with surgical shoe to keep the ulcer site completely offloaded. She was instructed to keep any kind of pressure away from the ulcer site.Patient's last hemoglobin A1c was 10.8. The importance of tight glycemic control was discussed again today. I also recommend nutritional supplementation with a high protein diet in order to help optimize ulcer healing potential. LEAS and Venous doppler exams performed and detailed report in patient's chart. There is diminished toe brachial index noted on the right side as well as noncompressible DP artery. Patient saw Dr. Linda in [place]. Since that appointment she was referred back to his partner Dr. Fry who evaluated the patient last week and will be performing angiogram next Thursday. We will continue to monitor for these results. Patient was educated on all signs and symptoms of local and systemic infection, and she was instructed to go to the emergency room immediately should she notice any of these before next visit. All questions were answered to the patient and her family satisfaction. Patient will follow back up at the wound healing center in 1 week to check on progress, or sooner if needed before then.
[2018-08-05 10:09] VITALS: BP 134/67; PULSE 74; RESP 18; TEMP 36.7; BMI 39.4
--- NOTE | 2018-08-05 11:00 | PN.PCM_ITS ---
(1) Ulcer of right foot with fat layer exposed Status: Acute Current Visit: No Code(s): L97.512 - Non-pressure chronic ulcer of other part of right foot with fat layer exposed (2) Type 2 diabetes mellitus with diabetic polyneuropathy Status: Acute Current Visit: No Code(s): E11.42 - Type 2 diabetes mellitus with diabetic polyneuropathy (3) PVD (peripheral vascular disease) Status: Suspected Current Visit: No Code(s): I73.9 - Peripheral vascular disease, unspecified (4) Lower extremity edema Status: Acute Current Visit: No Code(s): R60.0 - Localized edema (5) Venous insufficiency Status: Suspected Current Visit: No Code(s): I87.2 - Venous insufficiency (chronic) (peripheral) (6) Delayed wound healing Status: Acute Current Visit: No Code(s): T14.8XXD - Other injury of unspecified body region, subsequent encounter (7) Obesity (BMI 30-39.9) Status: Chronic Current Visit: No Code(s): E66.9 - Obesity, unspecified Type of Wound Date of Service: 08/05/18 Chief Complaint: right dorsal foot ulcer History of Wound: This 73-year-old diabetic female who was referred to the wound healing center for a dorsal distal right foot ulcer. Patient was referred to clinic by Theodore Gallardo. The patient states the ulcer has been present for a little over 2 weeks. She is unsure what caused the ulcer to start in the first place. She says she initially noticed a small ulcer starting that continued to get larger over the course of the first week. She says since, the ulcer site has remained relatively stable and has not increased any more in the surrounding redness has subsided. Patient has been dressing the ulcer site with Lotus and has been taking an antibiotic that was prescribed by Theodore Gallardo. Patient currently denies any feelings of nausea, vomiting, fever, chills. Progress of Wound: Ulcer slightly smaller this week. Had angiogram performed by Dr. Fry yesterday. Denies any nausea, vomiting, fever, or chills. - Physical Exam Vital Signs Temp Pulse Resp BP 98.0 F 74 18 134/67 H 08/05/18 10:09 08/05/18 10:09 08/05/18 10:08/05/18 10:09 General: Alert, Oriented x3, Cooperative, No apparent distress Extremities: Capillary Refill Less than 3 Seconds - To all digits of the right foot, No Calf Tenderness - Negative Heidy and Choi signs, Diminished Peripheral Pulses, Edema - Bilateral lower extremity edema Skin: Ulcer/ Wound - Ulcer with fat layer exposed noted to the dorso distal aspect of the right foot just proximal to the second and third toes. Some improved blood flow appreciated this week. Ulcer base is a mixture of adherent slough, fibrotic tissue, biofilm, granular tissue, and some slight surrounding hyperkeratotic tissue. There is no purulence, no streaking cellulitis, no significant increase in warmth, no probing to bone, no tracking, and no undermining at this time. Surrounding skin is hairless and atrophic. Wound Measurements and Assessment WC - Nurse 1 - General Ulcer Measurement Start: 07/15/18 09:13 Freq: Status: Active Protocol: Activity Type Activity Date Activity User E-Sign Co-Sign Detail Recorded Client Recorded Date Recorded By Document 08/05/18 10:09 VA [id number] 08/05/18 10:17 VA 08/05/18 10:09 Wound Center Nurse 1 [Ulcer Assessment] 1-right dorsal foot -Current Size (cm) - Length 1.8 -Current Size (cm) - Width 1.5 -Current Size (cm) - Depth 0.3 -Total Square Cm 2.70 -Exudate Amt Small -Exudate Type Serosanguineous -Wound Margin Thickened & Rolled Under -Granulation Amt Medium (34-66%) -Granulation Quality Pale,[place] -Necrosis Amt Medium (34-66%) -Necrotic Tissue Type Adherent Slough -Texture (Becky-wound Skin Appearance) Assessed, Localized Edema -Moisture (Becky-wound Skin Appearance Assessed ) -Color (Becky-wound Skin Appearance) Assessed -Temperature (Becky-wound Skin No Abnormality Appearance) (Pt Warm) -Tenderness on Palpation (Becky-wound No Skin Appearance) -Ulcer Cleansing Rinsed/ Irrigated with Saline -Foul Odor after Cleansing No -Anesthetic Used 5% Lidocaine Gel [Edema Assessment] -Right Calf (cm) 48 -Right Ankle (cm) 21 WC - Nurse 2 - General Ulcer CM Notes Start: 07/15/18 09:13 Freq: Status: Active Protocol: Activity Type Activity Date Activity User E-Sign Co-Sign Detail Recorded Client Recorded Date Recorded By Document 08/05/18 10:34 AN [id number] 08/05/18 10:38 AN 08/05/18 10:34 Wound Center Nurse 2 [Procedure/Treatment] 1-right dorsal foot -Time 10:36 -Correct Patient Yes -Correct Side, Site, Position Yes -Correct Procedure Yes -Procedure Performed Yes -Type of Procedure Debridement -Clinical Debridement Subcutaneous -Post Debridement Size (cm) - Length 1.5 -Post Debridement Size (cm) - Width 1.5 -Post Debridement Size (cm) - Depth 0.3 -Total Square Cm 2.25 -Wound/Ulcer Outcome Not Healed -Ulcer Cleansing Rinsed/ Irrigated with Saline -Foul Odor after Cleansing No -Bioengineered Tissue No -Bleeding Controlled with Pressure -Offloading Yes -Type of Offloading Surgical Shoe -Treatment Response Procedure Tolerated Well [See Physician Procedure note for Specifics] Pain Scale: 0-10 Numeric [Pain] -Is Patient Pain Free? Yes Musculoskeletal: No Tenderness to Palpation of Joints or Extremities Neurological: - - Epicritic sensation grossly absent to lower extremities Psych/Mental Status: Normal Affect Debridement Note Post-Debridement Measurements/Treatment WC - Nurse 2 - General Ulcer CM Notes Start: 07/15/18 09:13 Freq: Status: Active Protocol: Activity Type Activity Date Activity User E-Sign Co-Sign Detail Recorded Client Recorded Date Recorded By Document 07/15/18 09:29 AN [id number] 07/15/18 09:41 AN Document 07/22/18 09:49 AN [id number] 07/22/18 09:52 AN Document 07/29/18 09:56 AN [id number] 07/29/18 10:03 AN Document 08/05/18 10:34 AN [id number] 08/05/18 10:38 AN 07/15/18 07/22/18 07/29/18 09:29 09:49 09:56 Wound Center Nurse 2 1-right dorsal foot -Time 09:32 09:50 09:59 -Correct Patient Yes Yes Yes -Correct Side, Site, Position Yes Yes Yes -Correct Procedure Yes Yes Yes -Procedure Performed Yes Yes Yes -Type of Procedure Debridement Debridement Debridement -Clinical Debridement Subcutaneous Subcutaneous Subcutaneous -Post Debridement Size (cm) - Length 1.9 1.6 1.6 -Post Debridement Size (cm) - Width 1.9 1.8 1.7 -Post Debridement Size (cm) - Depth 0.3 0.3 0.3 -Total Square Cm 3.61 2.88 2.72 -Wound/Ulcer Outcome Not Healed Not Healed Not Healed -Ulcer Cleansing Rinsed/ Rinsed/ Rinsed/ Irrigated with Irrigated with Irrigated with Saline Saline Saline -Foul Odor after Cleansing No No No -Bioengineered Tissue No No No -Bleeding Controlled with Pressure Pressure Pressure -Offloading No Yes -Type of Offloading Surgical Shoe Surgical Shoe -Treatment Response Procedure Procedure Procedure Tolerated Well Tolerated Well Tolerated Well Pain Scale: 0-10 Numeric Is Patient Pain Free? Yes Yes Yes 08/05/18 10:34 Wound Center Nurse 2 1-right dorsal foot -Time 10:36 -Correct Patient Yes -Correct Side, Site, Position Yes -Correct Procedure Yes -Procedure Performed Yes -Type of Procedure Debridement -Clinical Debridement Subcutaneous -Post Debridement Size (cm) - Length 1.5 -Post Debridement Size (cm) - Width 1.5 -Post Debridement Size (cm) - Depth 0.3 -Total Square Cm 2.25 -Wound/Ulcer Outcome Not Healed -Ulcer Cleansing Rinsed/ Irrigated with Saline -Foul Odor after Cleansing No -Bioengineered Tissue No -Bleeding Controlled with Pressure -Offloading Yes -Type of Offloading Surgical Shoe -Treatment Response Procedure Tolerated Well Pain Scale: 0-10 Numeric Is Patient Pain Free? Yes Wound debrided: Right dorsal distal foot Laterality: Right Type of Debridement: Excisional debridement Anesthesia Used: 4% Lidocaine Solution Depth: in the subcutaneous layer Percentage of wound debrided: 100 Instrument Used: 3mm curette Tissue Removed: Adherent slough, fibrin, biofilm Severity: Fat Layer Exposed Amount of bleeding with debridement: Mild Bleeding Controlled with: Pressure Patient tolerated procedure well Assessment/Plan Assessment: Ulcer right foot with fat layer exposed. DM with neuropathy. PVD. Lower extremity edema. Other comorbidities Plan: Patient was carefully examined and evaluated again today with a family member present in the room. Another subcutaneous debridement was performed as noted in the clinical panel. Ulcer site was carefully dressed with Aquacel Ag followed by dry sterile dressing. Patient is to have the dressing changed in this manner on a daily basis. She was instructed to not soak her foot. Patient is to continue with surgical shoe to keep the ulcer site completely offloaded. She was instructed to keep any kind of pressure away from the ulcer site. Patient's last hemoglobin A1c was 10.8. The importance of tight glycemic control was discussed again today. I also recommend nutritional supplementation with a high protein diet in order to help optimize ulcer healing potential. LEAS and Venous doppler exams performed and detailed report in patient's chart. There is diminished toe brachial index noted on the right side as well as noncompressible DP artery. Patient saw Dr. Linda in [place]. Since that appointment she was referred back to his partner Dr. Fry who evaluated the patient and performed an angiogram yesterday. According to his operative report, he was able to improve blood flow through the peroneal and dorsalis pedis arteries. 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 Full reoport can be found in patient's electronic chart. Patient was educated on all signs and symptoms of local and systemic infection, and she was instructed to go to the emergency room immediately should she notice any of these before next visit. All questions were answered to the patient and her family satisfaction. Patient will follow back up at the wound healing center in 1 week with another provider to check on progress due to 12 August holiday. She was instructed to follow-up sooner if needed before then.
== END 2018-08-08 23:59 ==
LOC: WC 10:00
PROVIDERS: Family Provider Family Medicine; PCP Family Medicine; Referring Provider Podiatrist; Visit Provider Podiatrist
DX: E11.621 Type 2 diabetes mellitus with foot ulcer (principal); L97.512 Non-pressure chronic ulcer of other part of right foot with fat layer exposed; E11.42 Type 2 diabetes mellitus with diabetic polyneuropathy; E11.51 Type 2 diabetes mellitus with diabetic peripheral angiopathy without gangrene; I87.2 Venous insufficiency (chronic) (peripheral); R60.0 Localized edema; E66.9 Obesity, unspecified; Z71.3 Dietary counseling and surveillance; Z68.39 Body mass index [BMI] 39.0-39.9, adult
CPT/HCPCS: 11042; 87070; 87075; 87077; 87186; 87205; 87640; 93923; 93970

== ENCOUNTER 2018-09-02 10:00 | Outpatient (RCR) | payer OTHER, SELFPAY ==
[2018-08-09 00:56] VITALS: BP 134/67; PULSE 74; RESP 18; TEMP 36.7
[2018-08-11 14:13] VITALS: BP 121/60; PULSE 78; RESP 18; TEMP 36.7; BMI 39.4
--- NOTE | 2018-08-11 15:39 | PN.PCM_ITS ---
(1) Ulcer of right foot with fat layer exposed Status: Chronic Current Visit: Yes Code(s): L97.512 - Non-pressure chronic ulcer of other part of right foot with fat layer exposed (2) Type 2 diabetes mellitus with diabetic polyneuropathy Status: Chronic Current Visit: Yes Code(s): E11.42 - Type 2 diabetes mellitus with diabetic polyneuropathy (3) PVD (peripheral vascular disease) Status: Suspected Current Visit: Yes Code(s): I73.9 - Peripheral vascular disease, unspecified (4) Lower extremity edema Status: Acute Current Visit: Yes Code(s): R60.0 - Localized edema (5) Venous insufficiency Status: Suspected Current Visit: Yes Code(s): I87.2 - Venous insufficiency (chronic) (peripheral) (6) Delayed wound healing Status: Acute Current Visit: Yes Code(s): T14.8XXD - Other injury of unspecified body region, subsequent encounter (7) Obesity (BMI 30-39.9) Status: Chronic Current Visit: Yes Code(s): E66.9 - Obesity, unspecified Type of Wound Date of Service: 08/11/18 Chief Complaint: right dorsal foot ulcer History of Wound: This 73-year-old diabetic female who was referred to the wound healing center for a dorsal distal right foot ulcer. Patient has been dressing the ulcer site with Lotus. Patient currently denies any feelings of nausea, vomiting, fever, chills. She has occasional mild foot pain. She had recent intervention with Dr. Fry to restore blood flow to the right foot. She denies nutrition supplementation use. She relates she had some redness occurring to the right foot when she presented to the [facility] emergency urgent center this past week. She was started on oral antibiotics again and a culture was obtained. She is amendable to have these medical records sent over. She relates the redness has resolved and she denies foot odor. This patient was seen today in courtesy for Dr. Burks. Progress of Wound: Stable - Physical Exam Vital Signs Temp Pulse Resp BP 98.0 F 78 18 121/60 H 08/11/18 14:13 08/11/18 14:13 08/11/18 14:13 08/11/18 14:13 General: Alert, Oriented x3, Cooperative, No apparent distress HEENT: Atraumatic Extremities: No cyanosis, Capillary Refill Less than 3 Seconds, No Calf Tenderness - negative Heidy and Choi 10 bilateral, Diminished Peripheral Pulses, Edema - Mild, - - mild discomfort with ulcer manipulation and debridement Skin: Ulcer/ Wound - No purulence, erythema hamstring, odor, infection. The peripheral skin is hairless and atrophic. There is some fibrous and central minimal tendon exposure noted. There is no necrosis or exposed bone or joint. Wound Measurements and Assessment WC - Nurse 1 - General Ulcer Measurement Start: 08/11/18 14:11 Freq: Status: Active Protocol: Activity Type Activity Date Activity User E-Sign Co-Sign Detail Recorded Client Recorded Date Recorded By Document 08/11/18 14:13 ME [id number] 08/11/18 14:15 ME 08/11/18 14:13 Wound Center Nurse 1 [Ulcer Assessment] 1-right dorsal foot -Current Size (cm) - Length 1.5 -Current Size (cm) - Width 1.5 -Current Size (cm) - Depth 0.2 -Total Square Cm 2.25 -Exudate Amt Small -Exudate Type Serosanguineous -Wound Margin Distinct, Outline Attached -Granulation Amt Medium (34-66%) -Granulation Quality Pale,[place] -Necrosis Amt Medium (34-66%) -Necrotic Tissue Type Adherent Slough -Texture (Becky-wound Skin Appearance) Assessed, Localized Edema -Moisture (Becky-wound Skin Appearance Assessed ) -Color (Becky-wound Skin Appearance) Assessed, Erythema -Temperature (Becky-wound Skin No Abnormality Appearance) (Pt Warm) -Tenderness on Palpation (Becky-wound Yes Skin Appearance) -Ulcer Cleansing Rinsed/ Irrigated with Saline -Foul Odor after Cleansing No -Anesthetic Used 5% Lidocaine Gel - Nurse 2 - General Ulcer CM Notes Start: 08/11/18 14:11 Freq: Status: Active Protocol: Activity Type Activity Date Activity User E-Sign Co-Sign Detail Recorded Client Recorded Date Recorded By Document 08/11/18 14:45 [email or web address] 08/11/18 14:48 08/11/18 14:45 Wound Center Nurse 2 [Procedure/Treatment] -Time 14:45 -Correct Patient Yes -Correct Side, Site, Position Yes -Correct Procedure Yes -Procedure Performed Yes -Type of Procedure Debridement -Clinical Debridement Subcutaneous -Post Debridement Size (cm) - Length 1.6 -Post Debridement Size (cm) - Width 1.5 -Post Debridement Size (cm) - Depth 0.2 -Total Square Cm 2.40 -Wound/Ulcer Outcome Not Healed -Ulcer Cleansing Rinsed/ Irrigated with Saline -Foul Odor after Cleansing No -Bioengineered Tissue No -Bleeding Controlled with Pressure -Offloading Yes -Type of Offloading Surgical Shoe -Treatment Response Procedure Tolerated Well [See Physician Procedure note for Specifics] Pain Scale: 0-10 Numeric [Pain] -Is Patient Pain Free? Yes Musculoskeletal: No Tenderness to Palpation of Joints or Extremities, Muscle Wasting Neurological: - - Lack of normal epicritic sensation to touch Psych/Mental Status: Normal Affect, Appropriate Debridement Note Post-Debridement Measurements/Treatment WC - Nurse 2 - General Ulcer CM Notes Start: 08/11/18 14:11 Freq: Status: Active Protocol: Activity Type Activity Date Activity User E-Sign Co-Sign Detail Recorded Client Recorded Date Recorded By Document 08/11/18 14:45 EVAN [email or web address] 08/11/18 14:48 EVAN 08/11/18 14:45 Wound Center Nurse 2 1-right dorsal foot -Time 14:45 -Correct Patient Yes -Correct Side, Site, Position Yes -Correct Procedure Yes -Procedure Performed Yes -Type of Procedure Debridement -Clinical Debridement Subcutaneous -Post Debridement Size (cm) - Length 1.6 -Post Debridement Size (cm) - Width 1.5 -Post Debridement Size (cm) - Depth 0.2 -Total Square Cm 2.40 -Wound/Ulcer Outcome Not Healed -Ulcer Cleansing Rinsed/ Irrigated with Saline -Foul Odor after Cleansing No -Bioengineered Tissue No -Bleeding Controlled with Pressure -Offloading Yes -Type of Offloading Surgical Shoe -Treatment Response Procedure Tolerated Well Pain Scale: 0-10 Numeric Is Patient Pain Free? Yes Wound debrided: dorsal foot Laterality: Right Wound Grade/Stage: grade 2 Type of Debridement: Excisional debridement Anesthesia Used: 5% Lidocaine Gel Depth: in the subcutaneous layer Percentage of wound debrided: 100 Instrument Used: #15 blade Tissue Removed: fibrous, devitalized subcutaneous, biofilm, slough Severity: Fat Layer Exposed Amount of bleeding with debridement: Mild Bleeding Controlled with: Pressure Patient tolerated procedure well Assessment/Plan Active Problems (Last Reviewed 06/23/18 @ 10:11 by Lori Maurice) Ulcer of right foot with fat layer exposed (Chronic) Type 2 diabetes mellitus with diabetic polyneuropathy (Chronic) Lower extremity edema (Acute) Delayed wound healing (Acute) Obesity (BMI 30-39.9) (Chronic) Assessment: Ulcer right foot with fat and tendon layer exposed. cellulitis resolving. DM with neuropathy. PVD. Lower extremity edema. Other comorbidities Plan: Patient was carefully examined and evaluated again today with a family member present in the room. Another subcutaneous debridement was performed as noted in the clinical panel. Ulcer site was carefully dressed with Aquacel Ag followed by dry sterile dressing. Patient is to have the dressing changed in this manner on a daily basis. She was instructed to not soak her foot. Patient is to continue with surgical shoe to keep the ulcer site completely offloaded. She was instructed to keep any kind of pressure away from the ulcer site. Patient's last hemoglobin A1c was 10.8. The importance of tight glycemic control was discussed again today. I also recommend nutritional supplementation with a high protein diet in order to help optimize ulcer healing potential. A presc ription for [place] nutritional supplements were provided today she advised on proper use. LEAS and Venous doppler exams performed and detailed report in patient's chart. There is diminished toe brachial index noted on the right side as well as noncompressible DP artery. Patient saw Dr. Linda in [place]. Since that appointment she was referred back to his partner Dr. Fry who evaluated the patient and performed an angiogram last week. According to his operative report, he was able to improve blood flow through the peroneal and dorsalis pedis arteries. 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 Full reoport can be found in patient's electronic chart. Patient was educated on all signs and symptoms of local and systemic infection, and she was instructed to go to the emergency room immediately should she notice any of these before next visit. It is noted she went to the urgent center last week at [facility] and these files will be requested including the encounter notes as well as any microbiology reports labs. She is reassured her foot looks clinically stable at this time. To continue with light compression with Tubigrip. Her previous history of venous insufficiency is noted with prior venous Doppler. All questions were answered to the patient and her family satisfaction. Patient will follow back up at the wound healing center in 1 week.
[2018-08-19 10:24] VITALS: BP 127/65; PULSE 69; RESP 18; TEMP 36.6; BMI 39.4
--- NOTE | 2018-08-19 13:48 | PN.PCM_ITS ---
(1) Ulcer of right foot with fat layer exposed Status: Chronic Current Visit: Yes Code(s): L97.512 - Non-pressure chronic ulcer of other part of right foot with fat layer exposed (2) Type 2 diabetes mellitus with diabetic polyneuropathy Status: Chronic Current Visit: Yes Code(s): E11.42 - Type 2 diabetes mellitus with diabetic polyneuropathy (3) PVD (peripheral vascular disease) Status: Suspected Current Visit: Yes Code(s): I73.9 - Peripheral vascular disease, unspecified (4) Lower extremity edema Status: Acute Current Visit: Yes Code(s): R60.0 - Localized edema (5) Venous insufficiency Status: Suspected Current Visit: Yes Code(s): I87.2 - Venous insufficiency (chronic) (peripheral) (6) Delayed wound healing Status: Acute Current Visit: Yes Code(s): T14.8XXD - Other injury of unspecified body region, subsequent encounter (7) Obesity (BMI 30-39.9) Status: Chronic Current Visit: Yes Code(s): E66.9 - Obesity, unspecified Type of Wound Date of Service: 08/19/18 Chief Complaint: right dorsal foot ulcer History of Wound: This 73-year-old diabetic female who was referred to the wound healing center for a dorsal distal right foot ulcer. Patient has been dressing the ulcer site with Lotus. Patient currently denies any feelings of nausea, vomiting, fever, chills. She has occasional mild foot pain. She had recent intervention with Dr. Fry to restore blood flow to the right foot. She denies nutrition supplementation use. She relates she had some redness occurring to the right foot when she presented to the [facility] emergency urgent center this past week. She was started on oral antibiotics again and a culture was obtained. She is amendable to have these medical records sent over. She relates the redness has resolved and she denies foot odor. This patient was seen today in courtesy for Dr. Burks. Progress of Wound: Ulcer shoes slight improvement. Patient denies any feelings of nausea, vomiting, fever, chills. - Physical Exam Vital Signs Temp Pulse Resp BP 97.8 F 69 18 127/65 H 08/19/18 10:24 08/19/18 10:24 08/19/18 10:24 08/19/18 10:24 General: Alert, Oriented x3, Cooperative, No apparent distress Extremities: Capillary Refill Less than 3 Seconds, No Calf Tenderness - Negative Heidy and Choi signs bilateral, Diminished Peripheral Pulses, Edema - Mild Skin: Ulcer/ Wound - Ulcer with fat layer exposed noted to the dorso distal aspect of the right foot just proximal to the second and third toes. Small amount of tendon also noted. Ulcer base is a mixture of adherent slough, fibrotic tissue, biofilm, granular tissue, and some slight surrounding hyperkeratotic tissue. There is no purulence, no streaking cellulitis, no significant increase in warmth, no probing to bone, no tracking, and no undermining at this time. Surrounding skin is hairless and atrophic. Wound Measurements and Assessment WC - Nurse 1 - General Ulcer Measurement Start: 08/11/18 14:11 Freq: Status: Active Protocol: Activity Type Activity Date Activity User E-Sign Co-Sign Detail Recorded Client Recorded Date Recorded By Document 08/19/18 10:24 RB [id number] 08/19/18 10:26 RB 08/19/18 10:24 Wound Center Nurse 1 [Ulcer Assessment] 1-right dorsal foot -Combined with other wound No -Current Size (cm) - Length 1.2 -Current Size (cm) - Width 1.1 -Current Size (cm) - Depth 0.3 -Total Square Cm 1.32 -Photo Taken No -Tunneling No -Undermining/Tunneling No -Circular Undermining No -Exudate Amt Small -Exudate Type Serosanguineous -Wound Margin Distinct, Outline Attached -Granulation Amt Medium (34-66%) -Granulation Quality [place] -Slough/Fibrin Yes -Necrosis Amt Small (1-33%) -Necrotic Tissue Type Adherent Slough -Structure Exposed N/A -Texture (Becky-wound Skin Appearance) Assessed -Moisture (Becky-wound Skin Appearance Assessed ) -Color (Becky-wound Skin Appearance) Assessed -Temperature (Becky-wound Skin No Abnormality Appearance) (Pt Warm) -Tenderness on Palpation (Becky-wound No Skin Appearance) -Ulcer Cleansing Wound Cleanser -Anesthetic Used 5% Lidocaine Gel WC - Nurse 2 - General Ulcer CM Notes Start: 08/11/18 14:11 Freq: Status: Active Protocol: Activity Type Activity Date Activity User E-Sign Co-Sign Detail Recorded Client Recorded Date Recorded By Document 08/19/18 11:04 [id number] 08/19/18 11:06 08/19/18 11:04 Wound Center Nurse 2 [Procedure/Treatment] -Time 11:04 -Correct Patient Yes -Correct Side, Site, Position Yes -Correct Procedure Yes -Procedure Performed Yes -Type of Procedure Debridement -Clinical Debridement Subcutaneous -Post Debridement Size (cm) - Length 1.4 -Post Debridement Size (cm) - Width 1.3 -Post Debridement Size (cm) - Depth 0.3 -Total Square Cm 1.82 -Wound/Ulcer Outcome Not Healed -Ulcer Cleansing Rinsed/ Irrigated with Saline -Foul Odor after Cleansing No -Bioengineered Tissue No -Bleeding Controlled with Pressure -Offloading Yes -Type of Offloading Surgical Shoe -Treatment Response Procedure Tolerated Well [See Physician Procedure note for Specifics] Pain Scale: 0-10 Numeric [Pain] -Is Patient Pain Free? Yes Musculoskeletal: Tenderness - With manipulation of ulcer site Neurological: - - Epicritic sensation grossly absent to lower extremities Psych/Mental Status: Normal Affect, Appropriate Debridement Note Post-Debridement Measurements/Treatment WC - Nurse 2 - General Ulcer CM Notes Start: 08/11/18 14:11 Freq: Status: Active Protocol: Activity Type Activity Date Activity User E-Sign Co-Sign Detail Recorded Client Recorded Date Recorded By Document 08/11/18 14:45 [id number] 08/11/18 14:48 Document 08/19/18 11:04 [id number] 08/19/18 11:06 08/11/18 08/19/18 14:45 11:04 Wound Center Nurse 2 1-right dorsal foot -Time 14:45 11:04 -Correct Patient Yes Yes -Correct Side, Site, Position Yes Yes -Correct Procedure Yes Yes -Procedure Performed Yes Yes -Type of Procedure Debridement Debridement -Clinical Debridement Subcutaneous Subcutaneous -Post Debridement Size (cm) - Length 1.6 1.4 -Post Debridement Size (cm) - Width 1.5 1.3 -Post Debridement Size (cm) - Depth 0.2 0.3 -Total Square Cm 2.40 1.82 -Wound/Ulcer Outcome Not Healed Not Healed -Ulcer Cleansing Rinsed/ Rinsed/ Irrigated with Irrigated with Saline Saline -Foul Odor after Cleansing No No -Bioengineered Tissue No No -Bleeding Controlled with Pressure Pressure -Offloading Yes Yes -Type of Offloading Surgical Shoe Surgical Shoe -Treatment Response Procedure Procedure Tolerated Well Tolerated Well Pain Scale: 0-10 Numeric Is Patient Pain Free? Yes Yes Wound debrided: Right dorsal lateral foot Laterality: Right Type of Debridement: Excisional debridement Anesthesia Used: 4% Lidocaine Solution Depth: in the subcutaneous layer Percentage of wound debrided: 100 Instrument Used: 3mm curette Tissue Removed: Adherent slough, fibrin, biofilm Severity: Fat Layer Exposed Amount of bleeding with debridement: Mild Bleeding Controlled with: Pressure Patient tolerated procedure well Assessment/Plan Active Problems (Last Reviewed 08/18/18 @ 14:26 by Keshav Lambert DO) Ulcer of right foot with fat layer exposed (Chronic) Type 2 diabetes mellitus with diabetic polyneuropathy (Chronic) Lower extremity edema (Acute) Delayed wound healing (Acute) Obesity (BMI 30-39.9) (Chronic) Assessment: Ulcer right foot with fat and tendon layer exposed. cellulitis resolving. DM with neuropathy. PVD. Lower extremity edema. Other comorbidities Plan: Patient was carefully examined and evaluated again today with a family member present in the room. Another subcutaneous debridement was performed as noted in the clinical panel. Ulcer site was carefully dressed with Lotus followed by dry sterile dressing. Patient is to have the dressing changed in this manner on a daily basis. She was instructed to not soak her foot. Patient is to continue with surgical shoe to keep the ulcer site completely offloaded. She was instructed to keep any kind of pressure away from the ulcer site. Patient's last hemoglobin A1c was 10.8. The importance of tight glycemic control was discussed again today. I also recommend nutritional supplementation with a high protein diet in order to help optimize ulcer healing potential. LEAS and Venous doppler exams performed and detailed report in patient's chart. There is diminished toe brachial index noted on the right side as well as noncompressible DP artery. Patient saw Dr. Linda in [place]. Since that appointment she was referred back to his partner Dr. Fry who evaluated the patient and performed an angiogram. According to his operative report, he was able to improve blood flow through the peroneal and dorsalis pedis arteries. 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 Full reoport can be found in patient's electronic chart. Patient was educated on all signs and symptoms of local and systemic infection, and she was instructed to go to the emergency room immediately should she notice any of these before next visit. All questions were answered to the patient and her family satisfaction. Patient will follow back up at the wound healing center in 1 week.
[2018-08-26 10:07] VITALS: BP 134/63; PULSE 71; RESP 16; TEMP 37.2; BMI 39.4
--- NOTE | 2018-08-26 10:44 | PCM.WC.PN ---
(1) Ulcer of right foot with fat layer exposed Status: Chronic Current Visit: Yes Code(s): L97.512 - Non-pressure chronic ulcer of other part of right foot with fat layer exposed (2) Type 2 diabetes mellitus with diabetic polyneuropathy Status: Chronic Current Visit: Yes Code(s): E11.42 - Type 2 diabetes mellitus with diabetic polyneuropathy (3) PVD (peripheral vascular disease) Status: Suspected Current Visit: Yes Code(s): I73.9 - Peripheral vascular disease, unspecified (4) Lower extremity edema Status: Acute Current Visit: Yes Code(s): R60.0 - Localized edema (5) Venous insufficiency Status: Suspected Current Visit: Yes Code(s): I87.2 - Venous insufficiency (chronic) (peripheral) (6) Delayed wound healing Status: Acute Current Visit: Yes Code(s): T14.8XXD - Other injury of unspecified body region, subsequent encounter (7) Obesity (BMI 30-39.9) Status: Chronic Current Visit: Yes Code(s): E66.9 - Obesity, unspecified Type of Wound Date of Service: 08/26/18 Chief Complaint: right dorsal foot ulcer History of Wound: This 73-year-old diabetic female who was referred to the wound healing center for a dorsal distal right foot ulcer. Patient has been dressing the ulcer site with Lotus. Patient currently denies any feelings of nausea, vomiting, fever, chills. She has occasional mild foot pain. She had recent intervention with Dr. Fry to restore blood flow to the right foot. She denies nutrition supplementation use. She relates she had some redness occurring to the right foot when she presented to the [facility] emergency urgent center this past week. She was started on oral antibiotics again and a culture was obtained. She is amendable to have these medical records sent over. She relates the redness has resolved and she denies foot odor. This patient was seen today in courtesy for Dr. Burks. Progress of Wound: Ulcer site improving. Patient denies any feelings of nausea, vomiting, fever, chills. - Physical Exam Vital Signs Temp Pulse Resp BP 99.0 F 71 16 134/63 H 08/26/18 10:07 08/26/18 10:07 08/26/18 10:07 08/26/18 10:07 General: Alert, Oriented x3, Cooperative, No apparent distress Extremities: Capillary Refill Less than 3 Seconds, No Calf Tenderness - Negative Heidy and Choi signs bilateral, Diminished Peripheral Pulses, Edema - Mild Skin: Ulcer/ Wound - Ulcer with fat layer exposed noted to the dorso distal aspect of the right foot just proximal to the second and third toes. Small amount of tendon also noted. Ulcer base is a mixture of adherent slough, fibrotic tissue, biofilm, granular tissue, and some slight surrounding hyperkeratotic tissue. Increasing amount of granular tissue noted. There is no purulence, no streaking cellulitis, no significant increase in warmth, no probing to bone, no tracking, and no undermining at this time. Surrounding skin is hairless and atrophic. Wound Measurements and Assessment WC - Nurse 1 - General Ulcer Measurement Start: 08/11/18 14:11 Freq: Status: Active Protocol: Activity Type Activity Date Activity User E-Sign Co-Sign Detail Recorded Client Recorded Date Recorded By Document 08/26/18 10:07 [email or web address] [id number] 08/26/18 10:11 VA 08/26/18 10:07 Wound Center Nurse 1 [Ulcer Assessment] 1-right dorsal foot -Current Size (cm) - Length 1.4 -Current Size (cm) - Width 1.2 -Current Size (cm) - Depth 0.2 -Total Square Cm 1.68 -Exudate Amt Small -Exudate Type Purulent -Wound Margin Thickened & Rolled Under -Granulation Amt Small (1-33%) -Granulation Quality [place] -Slough/Fibrin Yes -Necrosis Amt Large (67-100%) -Texture (Becky-wound Skin Appearance) Assessed -Moisture (Becky-wound Skin Appearance Assessed ) -Color (Becky-wound Skin Appearance) Assessed -Temperature (Becky-wound Skin No Abnormality Appearance) (Pt Warm) -Tenderness on Palpation (Becky-wound No Skin Appearance) -Ulcer Cleansing Rinsed/ Irrigated with Saline -Foul Odor after Cleansing No -Anesthetic Used 5% Lidocaine Gel [Edema Assessment] -Right Ankle (cm) 26 WC - Nurse 2 - General Ulcer CM Notes Start: 08/11/18 14:11 Freq: Status: Active Protocol: Activity Type Activity Date Activity User E-Sign Co-Sign Detail Recorded Client Recorded Date Recorded By Document 08/26/18 10:17 AN [id number] 08/26/18 10:20 AN 08/26/18 10:17 Wound Center Nurse 2 [Procedure/Treatment] 1-right dorsal foot -Time 10:19 -Correct Patient Yes -Correct Side, Site, Position Yes -Correct Procedure Yes -Procedure Performed Yes -Type of Procedure Debridement -Clinical Debridement Subcutaneous -Post Debridement Size (cm) - Length 1.2 -Post Debridement Size (cm) - Width 1.1 -Post Debridement Size (cm) - Depth 0.2 -Total Square Cm 1.32 -Wound/Ulcer Outcome Not Healed -Ulcer Cleansing Rinsed/ Irrigated with Saline -Foul Odor after Cleansing No -Bioengineered Tissue No -Bleeding Controlled with Pressure -Offloading Yes -Type of Offloading Surgical Shoe -Treatment Response Procedure Tolerated Well [See Physician Procedure note for Specifics] Pain Scale: 0-10 Numeric [Pain] -Is Patient Pain Free? Yes Musculoskeletal: Tenderness - With manipulation of ulcer site Neurological: - - Epicritic sensation grossly absent to lower extremities Psych/Mental Status: Normal Affect, Appropriate Debridement Note Post-Debridement Measurements/Treatment WC - Nurse 2 - General Ulcer CM Notes Start: 08/11/18 14:11 Freq: Status: Active Protocol: Activity Type Activity Date Activity User E-Sign Co-Sign Detail Recorded Client Recorded Date Recorded By Document 08/11/18 14:45 [id number] 08/11/18 14:48 Document 08/19/18 11:04 [id number] 08/19/18 11:06 Document 08/26/18 10:17 AN [id number] 08/26/18 10:20 AN 08/11/18 08/19/18 08/26/18 14:45 11:04 10:17 Wound Center Nurse 2 1-right dorsal foot -Time 14:45 11:04 10:19 -Correct Patient Yes Yes Yes -Correct Side, Site, Position Yes Yes Yes -Correct Procedure Yes Yes Yes -Procedure Performed Yes Yes Yes -Type of Procedure Debridement Debridement Debridement -Clinical Debridement Subcutaneous Subcutaneous Subcutaneous -Post Debridement Size (cm) - Length 1.6 1.4 1.2 -Post Debridement Size (cm) - Width 1.5 1.3 1.1 -Post Debridement Size (cm) - Depth 0.2 0.3 0.2 -Total Square Cm 2.40 1.82 1.32 -Wound/Ulcer Outcome Not Healed Not Healed Not Healed -Ulcer Cleansing Rinsed/ Rinsed/ Rinsed/ Irrigated with Irrigated with Irrigated with Saline Saline Saline -Foul Odor after Cleansing No No No -Bioengineered Tissue No No No -Bleeding Controlled with Pressure Pressure Pressure -Offloading Yes Yes Yes -Type of Offloading Surgical Shoe Surgical Shoe Surgical Shoe -Treatment Response Procedure Procedure Procedure Tolerated Well Tolerated Well Tolerated Well Pain Scale: 0-10 Numeric Is Patient Pain Free? Yes Yes Yes Wound debrided: Right dorsal distal foot Laterality: Right Type of Debridement: Excisional debridement Anesthesia Used: 5% Lidocaine Gel Depth: in the subcutaneous layer Percentage of wound debrided: 100 Instrument Used: 3mm curette Tissue Removed: Adherent slough, fibrin, biofilm Severity: Fat Layer Exposed Amount of bleeding with debridement: Mild Bleeding Controlled with: Pressure Patient tolerated procedure well Assessment/Plan Active Problems (Last Reviewed 08/18/18 @ 14:26 by Keshav Lambert DO) Ulcer of right foot with fat layer exposed (Chronic) Type 2 diabetes mellitus with diabetic polyneuropathy (Chronic) Lower extremity edema (Acute) Delayed wound healing (Acute) Obesity (BMI 30-39.9) (Chronic) Assessment: Ulcer right foot with fat and tendon layer exposed. cellulitis resolving. DM with neuropathy. PVD. Lower extremity edema. Other comorbidities Plan: Patient was carefully examined and evaluated again today with a family member present in the room. Improvement in size and appearance of base noted. Another subcutaneous debridement was performed as noted in the clinical panel. Ulcer site was carefully dressed with Lotus followed by dry sterile dressing. Patient is to have the dressing changed in this manner on a daily basis. She was instructed to not soak her foot. Patient is to continue with surgical shoe to keep the ulcer site completely offloaded. She was instructed to keep any kind of pressure away from the ulcer site. Patient's last hemoglobin A1c was 10.8. The importance of tight glycemic control was discussed again today. I also recommend nutritional supplementation with a high protein diet in order to help optimize ulcer healing potential. LEAS and Venous doppler exams performed and detailed report in patient's chart. There is diminished toe brachial index noted on the right side as well as noncompressible DP artery. Patient saw Dr. Linda in [place]. Since that appointment she was referred back to his partner Dr. Fry who evaluated the patient and performed an angiogram. According to his operative report, he was able to improve blood flow through the peroneal and dorsalis pedis arteries. 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 Full reoport can be found in patient's electronic chart. Patient was educated on all signs and symptoms of local and systemic infection, and she was instructed to go to the emergency room immediately should she notice any of these before next visit. All questions were answered to the patient and her family satisfaction. Patient will follow back up at the wound healing center in 1 week.
[2018-09-02 10:03] VITALS: BP 139/73; PULSE 75; RESP 18; TEMP 36.3; BMI 39.4
--- NOTE | 2018-09-02 11:10 | PN.PCM_ITS ---
(1) Ulcer of right foot with fat layer exposed Status: Chronic Current Visit: Yes Code(s): L97.512 - Non-pressure chronic ulcer of other part of right foot with fat layer exposed (2) Type 2 diabetes mellitus with diabetic polyneuropathy Status: Chronic Current Visit: Yes Code(s): E11.42 - Type 2 diabetes mellitus with diabetic polyneuropathy (3) PVD (peripheral vascular disease) Status: Suspected Current Visit: Yes Code(s): I73.9 - Peripheral vascular disease, unspecified (4) Lower extremity edema Status: Acute Current Visit: Yes Code(s): R60.0 - Localized edema (5) Venous insufficiency Status: Suspected Current Visit: Yes Code(s): I87.2 - Venous insufficiency (chronic) (peripheral) (6) Delayed wound healing Status: Acute Current Visit: Yes Code(s): T14.8XXD - Other injury of unspecified body region, subsequent encounter (7) Obesity (BMI 30-39.9) Status: Chronic Current Visit: Yes Code(s): E66.9 - Obesity, unspecified Type of Wound Date of Service: 09/02/18 Chief Complaint: right dorsal foot ulcer History of Wound: This 73-year-old diabetic female who was referred to the wound healing center for a dorsal distal right foot ulcer. Patient has been dressing the ulcer site with Lotus. Patient currently denies any feelings of nausea, vomiting, fever, chills. She has occasional mild foot pain. She had recent intervention with Dr. Fry to restore blood flow to the right foot. She denies nutrition supplementation use. She relates she had some redness occurring to the right foot when she presented to the [facility] emergency urgent center this past week. She was started on oral antibiotics again and a culture was obtained. She is amendable to have these medical records sent over. She relates the redness has resolved and she denies foot odor. This patient was seen today in courtesy for Dr. Burks. Progress of Wound: Continued improvement appreciated. Patient denies any feelings of nausea, vomiting, fever, chills. - Physical Exam Vital Signs Temp Pulse Resp BP 97.3 F L 75 18 139/73 H 09/02/18 10:03 09/02/18 10:03 09/02/18 10:03 09/02/18 10:03 General: Alert, Oriented x3, Cooperative, No apparent distress Extremities: Capillary Refill Less than 3 Seconds, No Calf Tenderness - Negative Heidy and Choi signs bilateral, Diminished Peripheral Pulses, Edema - Mild Skin: Ulcer/ Wound - Ulcer with fat layer exposed noted to the dorso distal aspect of the right foot just proximal to the second and third toes. Small amount of tendon also noted. Ulcer base is a mixture of adherent slough, fibrotic tissue, biofilm, granular tissue, and some slight surrounding hyperkeratotic tissue. Continued amount of increasing granular tissue noted that seems to be slowly covering the small area of exposed tendon. There is no purulence, no streaking cellulitis, no significant increase in warmth, no probing to bone, no tracking, and no undermining at this time. Surrounding skin is hairless and atrophic. Wound Measurements and Assessment WC - Nurse 1 - General Ulcer Measurement Start: 08/11/18 14:11 Freq: Status: Active Protocol: Activity Type Activity Date Activity User E-Sign Co-Sign Detail Recorded Client Recorded Date Recorded By Document 09/02/18 10:03 AN [id number] 09/02/18 10:10 AN 09/02/18 10:03 Wound Center Nurse 1 [Ulcer Assessment] 1-right dorsal foot -Current Size (cm) - Length 1 -Current Size (cm) - Width 1 -Current Size (cm) - Depth 0.3 -Total Square Cm 1 -Photo Taken No -Epithelialization None Present -Tunneling No -Undermining/Tunneling No -Circular Undermining No -Exudate Amt Small -Exudate Type Serous -Wound Margin Distinct, Outline Attached -Granulation Amt Large (67-100%) -Granulation Quality [place] -Slough/Fibrin Yes -Necrosis Amt Small (1-33%) -Necrotic Tissue Type Adherent Slough -Texture (Becky-wound Skin Appearance) Assessed, Scarring -Moisture (Becky-wound Skin Appearance Assessed ) -Color (Becky-wound Skin Appearance) Assessed -Temperature (Becky-wound Skin No Abnormality Appearance) (Pt Warm) -Tenderness on Palpation (Becky-wound No Skin Appearance) -Ulcer Cleansing Rinsed/ Irrigated with Saline -Foul Odor after Cleansing No -Anesthetic Used 4% Lidocaine Solution CRISTOFER - Nurse 2 - General Ulcer CM Notes Start: 08/11/18 14:11 Freq: Status: Active Protocol: Activity Type Activity Date Activity User E-Sign Co-Sign Detail Recorded Client Recorded Date Recorded By Document 09/02/18 10:40 AN [id number] 09/02/18 10:42 AN 09/02/18 10:40 Wound Center Nurse 2 [Procedure/Treatment] -Time 10:40 -Correct Patient Yes -Correct Side, Site, Position Yes -Correct Procedure Yes -Procedure Performed Yes -Type of Procedure Debridement -Clinical Debridement Subcutaneous -Post Debridement Size (cm) - Length 1.1 -Post Debridement Size (cm) - Width 1.0 -Post Debridement Size (cm) - Depth 0.2 -Total Square Cm 1.10 -Wound/Ulcer Outcome Not Healed -Ulcer Cleansing Rinsed/ Irrigated with Saline -Foul Odor after Cleansing No -Bioengineered Tissue No -Bleeding Controlled with Pressure -Offloading Yes -Type of Offloading Surgical Shoe -Treatment Response Procedure Tolerated Well [See Physician Procedure note for Specifics] Pain Scale: 0-10 Numeric [Pain] -Is Patient Pain Free? Yes Musculoskeletal: Tenderness - With manipulation of ulcer site Neurological: - - Epicritic sensation grossly absent to lower extremities Psych/Mental Status: Normal Affect, Appropriate Debridement Note Post-Debridement Measurements/Treatment WC - Nurse 2 - General Ulcer CM Notes Start: 08/11/18 14:11 Freq: Status: Active Protocol: Activity Type Activity Date Activity User E-Sign Co-Sign Detail Recorded Client Recorded Date Recorded By Document 08/11/18 14:45 [id number] 08/11/18 14:48 Document 08/19/18 11:04 [id number] 08/19/18 11:06 Document 08/26/18 10:17 AN [id number] 08/26/18 10:20 AN Document 09/02/18 10:40 AN [id number] 09/02/18 10:42 AN 08/11/18 08/19/18 08/26/18 14:45 11:04 10:17 Wound Center Nurse 2 1-right dorsal foot -Time 14:45 11:04 10:19 -Correct Patient Yes Yes Yes -Correct Side, Site, Position Yes Yes Yes -Correct Procedure Yes Yes Yes -Procedure Performed Yes Yes Yes -Type of Procedure Debridement Debridement Debridement -Clinical Debridement Subcutaneous Subcutaneous Subcutaneous -Post Debridement Size (cm) - Length 1.6 1.4 1.2 -Post Debridement Size (cm) - Width 1.5 1.3 1.1 -Post Debridement Size (cm) - Depth 0.2 0.3 0.2 -Total Square Cm 2.40 1.82 1.32 -Wound/Ulcer Outcome Not Healed Not Healed Not Healed -Ulcer Cleansing Rinsed/ Rinsed/ Rinsed/ Irrigated with Irrigated with Irrigated with Saline Saline Saline -Foul Odor after Cleansing No No No -Bioengineered Tissue No No No -Bleeding Controlled with Pressure Pressure Pressure -Offloading Yes Yes Yes -Type of Offloading Surgical Shoe Surgical Shoe Surgical Shoe -Treatment Response Procedure Procedure Procedure Tolerated Well Tolerated Well Tolerated Well Pain Scale: 0-10 Numeric Is Patient Pain Free? Yes Yes Yes 09/02/18 10:40 Wound Center Nurse 2 1-right dorsal foot -Time 10:40 -Correct Patient Yes -Correct Side, Site, Position Yes -Correct Procedure Yes -Procedure Performed Yes -Type of Procedure Debridement -Clinical Debridement Subcutaneous -Post Debridement Size (cm) - Length 1.1 -Post Debridement Size (cm) - Width 1.0 -Post Debridement Size (cm) - Depth 0.2 -Total Square Cm 1.10 -Wound/Ulcer Outcome Not Healed -Ulcer Cleansing Rinsed/ Irrigated with Saline -Foul Odor after Cleansing No -Bioengineered Tissue No -Bleeding Controlled with Pressure -Offloading Yes -Type of Offloading Surgical Shoe -Treatment Response Procedure Tolerated Well Pain Scale: 0-10 Numeric Is Patient Pain Free? Yes Wound debrided: Right dorsal distal foot Laterality: Right Type of Debridement: Excisional debridement Anesthesia Used: 5% Lidocaine Gel Depth: in the subcutaneous layer Percentage of wound debrided: 100 Instrument Used: 3mm curette Tissue Removed: Adherent slough, fibrin, biofilm Severity: Fat Layer Exposed Amount of bleeding with debridement: Mild Bleeding Controlled with: Pressure Patient tolerated procedure well Assessment/Plan Active Problems (Last Reviewed 08/18/18 @ 14:26 by Keshav Lambert DO) Ulcer of right foot with fat layer exposed (Chronic) Type 2 diabetes mellitus with diabetic polyneuropathy (Chronic) Lower extremity edema (Acute) Delayed wound healing (Acute) Obesity (BMI 30-39.9) (Chronic) Assessment: Ulcer right foot with fat and tendon layer exposed. cellulitis resolving. DM with neuropathy. PVD. Lower extremity edema. Other comorbidities Plan: Patient was carefully examined and evaluated again today with a family member present in the room. Continued improvement noted. A subcutaneous debridement was performed as noted in the clinical panel. Ulcer site was carefully dressed with Lotus followed by dry sterile dressing. Patient is to have the dressing changed in this manner on a daily basis. She was instructed to not soak her foot. Patient is to continue with surgical shoe to keep the ulcer site completely offloaded. She was instructed to keep any kind of pressure away from the ulcer site. Patient's last hemoglobin A1c was 10.8. The importa nce of tight glycemic control was discussed again today. I also recommend nutritional supplementation with a high protein diet in order to help optimize ulcer healing potential. LEAS and Venous doppler exams performed and detailed report in patient's chart. There is diminished toe brachial index noted on the right side as well as noncompressible DP artery. Patient saw Dr. Linda in [place]. Since that appointment she was referred back to his partner Dr. Fry who evaluated the patient and performed an angiogram. According to his operative report, he was able to improve blood flow through the peroneal and dorsalis pedis arteries. 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 Full reoport can be found in patient's electronic chart. Patient was educated on all signs and symptoms of local and systemic infection, and she was instructed to go to the emergency room immediately should she notice any of these before next visit. All questions were answered to the patient and her family satisfaction. Patient will follow back up at the wound healing center in 1 week.
== END 2018-09-08 23:59 ==
LOC: WC 10:00
PROVIDERS: Family Provider Family Medicine; PCP Family Medicine; Referring Provider Podiatrist; Visit Provider Podiatrist
DX: E11.621 Type 2 diabetes mellitus with foot ulcer (principal); E11.42 Type 2 diabetes mellitus with diabetic polyneuropathy; E11.51 Type 2 diabetes mellitus with diabetic peripheral angiopathy without gangrene; L97.512 Non-pressure chronic ulcer of other part of right foot with fat layer exposed; R60.0 Localized edema; I87.2 Venous insufficiency (chronic) (peripheral); E66.9 Obesity, unspecified; Z71.3 Dietary counseling and surveillance; Z68.39 Body mass index [BMI] 39.0-39.9, adult
CPT/HCPCS: 11042

== ENCOUNTER 2018-10-07 10:00 | Outpatient (RCR) | payer OTHER, SELFPAY ==
[2018-09-09 00:54] VITALS: BP 139/73; PULSE 75; RESP 18; TEMP 36.3
[2018-09-09 09:54] VITALS: BP 139/60; PULSE 70; RESP 16; TEMP 35.7; BMI 39.4
--- NOTE | 2018-09-09 10:16 | PN.PCM_ITS ---
(1) Ulcer of right foot with fat layer exposed Status: Chronic Current Visit: No Code(s): L97.512 - Non-pressure chronic ulcer of other part of right foot with fat layer exposed (2) Type 2 diabetes mellitus with diabetic polyneuropathy Status: Chronic Current Visit: No Code(s): E11.42 - Type 2 diabetes mellitus with diabetic polyneuropathy (3) PVD (peripheral vascular disease) Status: Suspected Current Visit: No Code(s): I73.9 - Peripheral vascular disease, unspecified (4) Lower extremity edema Status: Acute Current Visit: No Code(s): R60.0 - Localized edema (5) Venous insufficiency Status: Suspected Current Visit: No Code(s): I87.2 - Venous insufficiency (chronic) (peripheral) (6) Delayed wound healing Status: Acute Current Visit: No Code(s): T14.8XXD - Other injury of unspecified body region, subsequent encounter (7) Obesity (BMI 30-39.9) Status: Chronic Current Visit: No Code(s): E66.9 - Obesity, unspecified Type of Wound Date of Service: 09/09/18 Chief Complaint: right dorsal foot ulcer History of Wound: This 73-year-old diabetic female who was referred to the wound healing center for a dorsal distal right foot ulcer. Patient has been dressing the ulcer site with Lotus. Patient currently denies any feelings of nausea, vomiting, fever, chills. She has occasional mild foot pain. She had recent intervention with Dr. Fry to restore blood flow to the right foot. She denies nutrition supplementation use. She relates she had some redness occurring to the right foot when she presented to the [facility] emergency urgent center this past week. She was started on oral antibiotics again and a culture was obtained. She is amendable to have these medical records sent over. She relates the redness has resolved and she denies foot odor. This patient was seen today in courtesy for Dr. Burks. Progress of Wound: Continued improvement. Patient denies any feelings of nausea, vomiting, fever, chills. - Physical Exam Vital Signs Temp Pulse Resp BP 96.2 F L 70 16 139/60 H 09/09/18 09:54 09/09/18 09:54 09/09/18 09:54 09/09/18 09:54 General: Alert, Oriented x3, Cooperative, No apparent distress Extremities: Capillary Refill Less than 3 Seconds, No Calf Tenderness - Negative Heidy and Choi signs bilateral, Diminished Peripheral Pulses, Edema - Mild Skin: Ulcer/ Wound - Ulcer with fat layer exposed noted to the dorso distal aspect of the right foot just proximal to the second and third toes. Small amount of tendon also noted but continues to be covered by granulation tissue. Ulcer base is a mixture of adherent slough, fibrotic tissue, biofilm, granular tissue, and some slight surrounding hyperkeratotic tissue. Continued amount of increasing granular tissue noted that continues to slowly cover the small area of exposed tendon. There is no purulence, no streaking cellulitis, no significant increase in warmth, no probing to bone, no tracking, and no undermining at this time. Surrounding skin is hairless and atrophic. Wound Measurements and Assessment WC - Nurse 1 - General Ulcer Measurement Start: 09/09/18 09:53 Freq: Status: Active Protocol: Activity Type Activity Date Activity User E-Sign Co-Sign Detail Recorded Client Recorded Date Recorded By Document 09/09/18 09:54 [id number] 09/09/18 10:02 09/09/18 09:54 Wound Center Nurse 1 [Ulcer Assessment] 1-right dorsal foot -Combined with other wound No -Current Size (cm) - Length 1.0 -Current Size (cm) - Width 1.0 -Current Size (cm) - Depth 0.4 -Total Square Cm 1.00 -Photo Taken No -Moisture (Becky-wound Skin Appearance Assessed,Dry/ ) Scaly -Color (Becky-wound Skin Appearance) Assessed,Rubor -Temperature (Becky-wound Skin No Abnormality Appearance) (Pt Warm) -Ulcer Cleansing Rinsed/ Irrigated with Saline -Foul Odor after Cleansing No -Anesthetic Used 5% Lidocaine Gel Musculoskeletal: Tenderness - With manipulation of ulcer site Neurological: - - Epicritic sensation grossly absent to lower extremities Psych/Mental Status: Normal Affect, Appropriate Debridement Note Wound debrided: Right dorsal distal foot Laterality: Right Type of Debridement: Excisional debridement Anesthesia Used: 5% Lidocaine Gel Depth: in the subcutaneous layer Percentage of wound debrided: 100 Instrument Used: 3mm curette Tissue Removed: Adherent slough, fibrin, biofilm Severity: Fat Layer Exposed Amount of bleeding with debridement: Mild Bleeding Controlled with: Pressure Patient tolerated procedure well Assessment/Plan Assessment: Ulcer right foot with fat and tendon layer exposed. cellulitis resolving. DM with neuropathy. PVD. Lower extremity edema. Other comorbidities Plan: Patient was carefully examined and evaluated again today with a family member present in the room. Improvement noted again this week. A subcutaneous debridement was performed as noted in the clinical panel. Ulcer site was carefully dressed with Lotus followed by dry sterile dressing. Patient is to have the dressing changed in this manner on a daily basis. She was instructed to not soak her foot. Patient is to continue with surgical shoe to keep the ulcer site completely offloaded. She was instructed to keep any kind of pressure away from the ulcer site. Patient's last hemoglobin A1c was 10.8. The importance of tight glycemic control was discussed again today. I also recommend nutritional supplementation with a high protein diet in order to help optimize ulcer healing potential. LEAS and Venous doppler exams performed and detailed report in patient's chart. There is diminished toe brachial index noted on the right side as well as noncompressible DP artery. Patient saw Dr. Linda in [place]. Since that appointment she was referred back to his partner Dr. Fry who evaluated the patient and performed an angiogram. According to his operative report, he was able to improve blood flow through the peroneal and dorsalis pedis arteries. 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 Full reoport can be found in patient's electronic chart. Patient was educated on all signs and symptoms of local and systemic infection, and she was instructed to go to the emergency room immediately should she notice any of these before next visit. All questions were answered to the patient and her family satisfaction. Patient will follow back up at the wound healing center in 1 week.
[2018-09-16 10:44] VITALS: BP 145/75; PULSE 70; RESP 16; TEMP 36.5; BMI 39.4
--- NOTE | 2018-09-16 12:19 | PCM.WC.PN ---
(1) Ulcer of right foot with fat layer exposed Status: Chronic Current Visit: No Code(s): L97.512 - Non-pressure chronic ulcer of other part of right foot with fat layer exposed (2) Type 2 diabetes mellitus with diabetic polyneuropathy Status: Chronic Current Visit: No Code(s): E11.42 - Type 2 diabetes mellitus with diabetic polyneuropathy (3) PVD (peripheral vascular disease) Status: Suspected Current Visit: No Code(s): I73.9 - Peripheral vascular disease, unspecified (4) Lower extremity edema Status: Acute Current Visit: No Code(s): R60.0 - Localized edema (5) Venous insufficiency Status: Suspected Current Visit: No Code(s): I87.2 - Venous insufficiency (chronic) (peripheral) (6) Delayed wound healing Status: Acute Current Visit: No Code(s): T14.8XXD - Other injury of unspecified body region, subsequent encounter (7) Obesity (BMI 30-39.9) Status: Chronic Current Visit: No Code(s): E66.9 - Obesity, unspecified Type of Wound Date of Service: 09/16/18 Chief Complaint: right dorsal foot ulcer History of Wound: This 73-year-old diabetic female who was referred to the wound healing center for a dorsal distal right foot ulcer. Patient has been dressing the ulcer site with Lotus. Patient currently denies any feelings of nausea, vomiting, fever, chills. She has occasional mild foot pain. She had recent intervention with Dr. Fry to restore blood flow to the right foot. She denies nutrition supplementation use. She relates she had some redness occurring to the right foot when she presented to the [facility] emergency urgent center this past week. She was started on oral antibiotics again and a culture was obtained. She is amendable to have these medical records sent over. She relates the redness has resolved and she denies foot odor. This patient was seen today in courtesy for Dr. Burks. Progress of Wound: Continued improvement again noted. Patient denies any feelings of nausea, vomiting, fever, chills. - Physical Exam Vital Signs Temp Pulse Resp BP 97.7 F L 70 16 145/75 H 09/16/18 10:44 09/16/18 10:44 09/16/18 10:44 09/16/18 10:44 General: Alert, Oriented x3, Cooperative, No apparent distress Extremities: Capillary Refill Less than 3 Seconds, No Calf Tenderness - Negative Heidy and Choi signs bilateral, Diminished Peripheral Pulses, Edema - Mild Skin: Ulcer/ Wound - Ulcer with fat layer exposed noted to the dorso distal aspect of the right foot just proximal to the second and third toes. Ulcer base is a mixture of adherent slough, fibrotic tissue, biofilm, granular tissue, and some slight surrounding hyperkeratotic tissue. Continued amount of increasing granular tissue noted that continues to slowly cover the small area of exposed tendon again this week. There is no purulence, no streaking cellulitis, no significant increase in warmth, no probing to bone, no tracking, and no undermining at this time. Surrounding skin is hairless and atrophic. Wound Measurements and Assessment WC - Nurse 1 - General Ulcer Measurement Start: 09/09/18 09:53 Freq: Status: Active Protocol: Activity Type Activity Date Activity User E-Sign Co-Sign Detail Recorded Client Recorded Date Recorded By Document 09/16/18 10:44 BS [id number] 09/16/18 10:50 BS 09/16/18 10:44 Wound Center Nurse 1 [Ulcer Assessment] 1-right dorsal foot -Combined with other wound No -Current Size (cm) - Length 0.8 -Current Size (cm) - Width 0.6 -Current Size (cm) - Depth 0.2 -Total Square Cm 0.48 -Photo Taken No -Texture (Becky-wound Skin Appearance) Assessed, Scarring -Moisture (Becky-wound Skin Appearance Assessed,Dry/ ) Scaly -Color (Becky-wound Skin Appearance) Assessed -Temperature (Becky-wound Skin No Abnormality Appearance) (Pt Warm) -Tenderness on Palpation (Becky-wound No Skin Appearance) -Ulcer Cleansing Rinsed/ Irrigated with Saline -Foul Odor after Cleansing No -Anesthetic Used 5% Lidocaine Gel WC - Nurse 2 - General Ulcer CM Notes Start: 09/09/18 09:53 Freq: Status: Active Protocol: Activity Type Activity Date Activity User E-Sign Co-Sign Detail Recorded Client Recorded Date Recorded By Document 09/16/18 11:08 AN [id number] 09/16/18 11:10 AN 09/16/18 11:08 Wound Center Nurse 2 [Procedure/Treatment] -Time 11:09 -Correct Patient Yes -Correct Side, Site, Position Yes -Correct Procedure Yes -Procedure Performed Yes -Type of Procedure Debridement -Clinical Debridement Subcutaneous -Post Debridement Size (cm) - Length 0.9 -Post Debridement Size (cm) - Width 0.7 -Post Debridement Size (cm) - Depth 0.2 -Total Square Cm 0.63 -Wound/Ulcer Outcome Not Healed -Ulcer Cleansing Rinsed/ Irrigated with Saline -Foul Odor after Cleansing No -Bioengineered Tissue No -Bleeding Controlled with Pressure -Offloading Yes -Type of Offloading Surgical Shoe -Treatment Response Procedure Tolerated Well [See Physician Procedure note for Specifics] Musculoskeletal: Tenderness - With manipulation of ulcer site Neurological: - - Epicritic sensation grossly absent to lower extremities Psych/Mental Status: Normal Affect, Appropriate Debridement Note Post-Debridement Measurements/Treatment WC - Nurse 2 - General Ulcer CM Notes Start: 09/09/18 09:53 Freq: Status: Active Protocol: Activity Type Activity Date Activity User E-Sign Co-Sign Detail Recorded Client Recorded Date Recorded By Document 09/09/18 10:15 AN [id number] 09/09/18 10:16 AN Document 09/16/18 11:08 AN [id number] 09/16/18 11:10 AN 09/09/18 09/16/18 10:15 11:08 Wound Center Nurse 2 1-right dorsal foot -Time 10:15 11:09 -Correct Patient Yes Yes -Correct Side, Site, Position Yes Yes -Correct Procedure Yes Yes -Procedure Performed Yes Yes -Type of Procedure Debridement Debridement -Clinical Debridement Subcutaneous Subcutaneous -Post Debridement Size (cm) - Length 1.0 0.9 -Post Debridement Size (cm) - Width 1.0 0.7 -Post Debridement Size (cm) - Depth 0.2 0.2 -Total Square Cm 1.00 0.63 -Wound/Ulcer Outcome Not Healed Not Healed -Ulcer Cleansing Rinsed/ Rinsed/ Irrigated with Irrigated with Saline Saline -Foul Odor after Cleansing No No -Bioengineered Tissue No No -Bleeding Controlled with Pressure Pressure -Offloading Yes Yes -Type of Offloading Surgical Shoe Surgical Shoe -Treatment Response Procedure Procedure Tolerated Well Tolerated Well Pain Scale: 0-10 Numeric Is Patient Pain Free? Yes Wound debrided: Right dorsal distal foot Laterality: Right Type of Debridement: Excisional debridement Anesthesia Used: 5% Lidocaine Gel Depth: in the subcutaneous layer Percentage of wound debrided: 100 Instrument Used: 3mm curette Tissue Removed: Adherent slough, fibrin, biofilm Severity: Fat Layer Exposed Amount of bleeding with debridement: Mild Bleeding Controlled with: Pressure Patient tolerated procedure well Assessment/Plan Assessment: Ulcer right foot with fat and tendon layer exposed. cellulitis resolving. DM with neuropathy. PVD. Lower extremity edema. Other comorbidities Plan: Patient was carefully examined and evaluated again today with a family member present in the room. Continued improvement noted again this week. A subcutaneous debridement was performed as noted in the clinical panel. Ulcer site was carefully dressed with Lotus followed by dry sterile dressing. Patient is to have the dressing changed in this manner on a daily basis. She was instructed to not soak her foot. Patient is to continue with surgical shoe to keep the ulcer site completely offloaded. She was instructed to keep any kind of pressure away from the ulcer site. Patient's last hemoglobin A1c was 10.8. The importance of tight glycemic control was discussed again today. I also recommend nutritional supplementation with a high protein diet in order to help optimize ulcer healing potential. LEAS and Venous doppler exams performed and detailed report in patient's chart. There is diminished toe brachial index noted on the right side as well as noncompressible DP artery. Patient saw Dr. Linda in [place]. Since that appointment she was referred back to his partner Dr. Fry who evaluated the patient and performed an angiogram. According to his operative report, he was able to improve blood flow through the peroneal and dorsalis pedis arteries. 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 Full reoport can be found in patient's electronic chart. Patient was educated on all signs and symptoms of local and systemic infection, and she was instructed to go to the emergency room immediately should she notice any of these before next visit. All questions were answered to the patient and her family satisfaction. Patient will follow back up at the wound healing center in 1 week with a different provider as I will not be in clinic next week.
[2018-09-23 12:41] VITALS: BP 145/69; PULSE 80; RESP 18; TEMP 37; BMI 39.4
--- NOTE | 2018-09-23 13:21 | PCM.WC.PN ---
(1) Type 2 diabetes mellitus with diabetic polyneuropathy Status: Chronic Current Visit: Yes Code(s): E11.42 - Type 2 diabetes mellitus with diabetic polyneuropathy (2) Ulcer of right foot with fat layer exposed Status: Chronic Current Visit: Yes Code(s): L97.512 - Non-pressure chronic ulcer of other part of right foot with fat layer exposed (3) PVD (peripheral vascular disease) Status: Suspected Current Visit: Yes Code(s): I73.9 - Peripheral vascular disease, unspecified (4) Venous insufficiency Status: Suspected Current Visit: Yes Code(s): I87.2 - Venous insufficiency (chronic) (peripheral) Type of Wound Date of Service: 09/23/18 Chief Complaint: right dorsal foot ulcer History of Wound: This 73-year-old diabetic female who was referred to the wound healing center for a dorsal distal right foot ulcer. Patient has been dressing the ulcer site with Lotus. Patient currently denies any feelings of nausea, vomiting, fever, chills. She has occasional mild foot pain. She had recent intervention with Dr. Fry to restore blood flow to the right foot. She denies nutrition supplementation use. She relates she had some redness occurring to the right foot when she presented to the [facility] emergency urgent center this past week. She was started on oral antibiotics again and a culture was obtained. She is amendable to have these medical records sent over. She relates the redness has resolved and she denies foot odor. This patient was seen today in courtesy for Dr. Burks. Progress of Wound: Courtesy for Dr. Burks-ulcer stable. Patient denies any feelings of nausea, vomiting, fever, chills. - Physical Exam Vital Signs Temp Pulse Resp BP 98.6 F 80 18 145/69 H 09/23/18 12:41 09/23/18 12:41 09/23/18 12:41 09/23/18 12:41 General: Alert, Oriented x3, Cooperative, No apparent distress HEENT: Atraumatic Oral: Moist Mucosa Lungs: Clear to auscultation Cardiovascular: Regular rate Abdomen: Soft, Non Tender, Obese Extremities: No clubbing, No cyanosis, No edema, Diminished Peripheral Pulses Skin: Ulcer/ Wound - Ulceration to right foot with adherant slough, no signs of infection at this time Wound Measurements and Assessment WC - Nurse 1 - General Ulcer Measurement Start: 09/09/18 09:53 Freq: Status: Active Protocol: Activity Type Activity Date Activity User E-Sign Co-Sign Detail Recorded Client Recorded Date Recorded By Document 09/23/18 12:41 RB [id number] 09/23/18 12:47 RB 09/23/18 12:41 Wound Center Nurse 1 [Ulcer Assessment] 1-right dorsal foot -Combined with other wound No -Current Size (cm) - Length 0.9 -Current Size (cm) - Width 0.7 -Current Size (cm) - Depth 0.2 -Total Square Cm 0.63 -Photo Taken No -Tunneling No -Undermining/Tunneling No -Circular Undermining No -Exudate Amt Small -Exudate Type Serosanguineous -Wound Margin Distinct, Outline Attached -Granulation Amt Large (67-100%) -Granulation Quality [place] -Slough/Fibrin Yes -Necrosis Amt Small (1-33%) -Necrotic Tissue Type Adherent Slough -Structure Exposed N/A -Texture (Becky-wound Skin Appearance) Assessed -Moisture (Becky-wound Skin Appearance Assessed ) -Color (Becky-wound Skin Appearance) Hemosiderin Staining -Temperature (Becky-wound Skin No Abnormality Appearance) (Pt Warm) -Tenderness on Palpation (Becky-wound No Skin Appearance) -Ulcer Cleansing Rinsed/ Irrigated with Saline -Foul Odor after Cleansing No -Anesthetic Used 5% Lidocaine Gel WC - Nurse 2 - General Ulcer CM Notes Start: 09/09/18 09:53 Freq: Status: Active Protocol: Activity Type Activity Date Activity User E-Sign Co-Sign Detail Recorded Client Recorded Date Recorded By Document 09/23/18 13:08 AN [id number] 09/23/18 13:10 AN 09/23/18 13:08 Wound Center Nurse 2 [Procedure/Treatment] -Time 13:09 -Correct Patient Yes -Correct Side, Site, Position Yes -Correct Procedure Yes -Procedure Performed Yes -Type of Procedure Debridement -Clinical Debridement Subcutaneous -Post Debridement Size (cm) - Length 0.9 -Post Debridement Size (cm) - Width 0.9 -Post Debridement Size (cm) - Depth 0.3 -Total Square Cm 0.81 -Wound/Ulcer Outcome Not Healed [See Physician Procedure note for Specifics] Pain Scale: 0-10 Numeric [Pain] -Is Patient Pain Free? Yes Musculoskeletal: No Muscle Wasting Neurological: Neuro grossly intact Psych/Mental Status: Normal Affect, Appropriate, Alert and oriented to time, place, person, mood and affect Debridement Note Post-Debridement Measurements/Treatment WC - Nurse 2 - General Ulcer CM Notes Start: 09/09/18 09:53 Freq: Status: Active Protocol: Activity Type Activity Date Activity User E-Sign Co-Sign Detail Recorded Client Recorded Date Recorded By Document 09/09/18 10:15 AN [id number] 09/09/18 10:16 AN Document 09/16/18 11:08 AN [id number] 09/16/18 11:10 AN Document 09/23/18 13:08 AN [id number] 09/23/18 13:10 AN 09/09/18 09/16/18 09/23/18 10:15 11:08 13:08 Wound Center Nurse 2 1-right dorsal foot -Time 10:15 11:09 13:09 -Correct Patient Yes Yes Yes -Correct Side, Site, Position Yes Yes Yes -Correct Procedure Yes Yes Yes -Procedure Performed Yes Yes Yes -Type of Procedure Debridement Debridement Debridement -Clinical Debridement Subcutaneous Subcutaneous Subcutaneous -Post Debridement Size (cm) - Length 1.0 0.9 0.9 -Post Debridement Size (cm) - Width 1.0 0.7 0.9 -Post Debridement Size (cm) - Depth 0.2 0.2 0.3 -Total Square Cm 1.00 0.63 0.81 -Wound/Ulcer Outcome Not Healed Not Healed Not Healed -Ulcer Cleansing Rinsed/ Rinsed/ Irrigated with Irrigated with Saline Saline -Foul Odor after Cleansing No No -Bioengineered Tissue No No -Bleeding Controlled with Pressure Pressure -Offloading Yes Yes -Type of Offloading Surgical Shoe Surgical Shoe -Treatment Response Procedure Procedure Tolerated Well Tolerated Well Pain Scale: 0-10 Numeric Is Patient Pain Free? Yes Yes Wound debrided: right foot ulcer Laterality: Right Type of Debridement: Excisional debridement Anesthesia Used: 5% Lidocaine Gel Depth: in the subcutaneous layer Percentage of wound debrided: 100 Instrument Used: 5mm curette Tissue Removed: slough and devitalized tissue Severity: Fat Layer Exposed Amount of bleeding with debridement: Mild Bleeding Controlled with: Pressure Patient tolerated procedure well Assessment/Plan Active Problems (Last Reviewed 08/18/18 @ 14:26 by Keshav Lambert DO) Ulcer of right foot with fat layer exposed (Chronic) Type 2 diabetes mellitus with diabetic polyneuropathy (Chronic) Assessment: Ulcer right foot with fat and tendon layer exposed. cellulitis resolving. DM with neuropathy. PVD. Lower extremity edema. Other comorbidities Plan: Courtesy visit for Dr. Burks-Patient was carefully examined and evaluated again today with a family member present in the room. Continued improvement noted again this week. A subcutaneous debridement was performed as noted in the clinical panel. Ulcer site was carefully dressed with Lotus followed by dry sterile dressing. Patient is to have the dressing changed in this manner on a daily basis. She was instructed to not soak her foot. Patient is to continue with surgical shoe to keep the ulcer site completely offloaded. She was instructed to keep any kind of pressure away from the ulcer site. Patient's last hemoglobin A1c was 10.8. The importance of tight glycemic control was discussed again today. I also recommend nutritional supplementation with a high protein diet in order to help optimize ulcer healing potential. LEAS and Venous doppler exams performed and detailed report in patient's chart. There is diminished toe brachial index noted on the right side as well as noncompressible DP artery. Patient saw Dr. Linda in [place]. Since that appointment she was referred back to his partner Dr. Fry who evaluated the patient and performed an angiogram. According to his operative report, he was able to improve blood flow through the peroneal and dorsalis pedis arteries. 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 Full reoport can be found in patient's electronic chart. Patient was educated on all signs and symptoms of local and systemic infection, and she was instructed to go to the emergency room immediately should she notice any of these before next visit. All questions were answered to the patient and her family satisfaction. Patient will follow back up at the wound healing center in [address] Burks. Code Visit 111xxx-113xx: [id number] Ana subq tissue 20 sq cm/<
[2018-09-30 10:35] VITALS: BP 148/66; PULSE 78; RESP 16; TEMP 35.9; BMI 39.4
--- NOTE | 2018-09-30 11:28 | PN.PCM_ITS ---
(1) Ulcer of right foot with fat layer exposed Status: Chronic Current Visit: Yes Code(s): L97.512 - Non-pressure chronic ulcer of other part of right foot with fat layer exposed (2) Type 2 diabetes mellitus with diabetic polyneuropathy Status: Chronic Current Visit: Yes Code(s): E11.42 - Type 2 diabetes mellitus with diabetic polyneuropathy (3) PVD (peripheral vascular disease) Status: Suspected Current Visit: Yes Code(s): I73.9 - Peripheral vascular disease, unspecified (4) Lower extremity edema Status: Acute Current Visit: No Code(s): R60.0 - Localized edema (5) Venous insufficiency Status: Suspected Current Visit: Yes Code(s): I87.2 - Venous insufficiency (chronic) (peripheral) (6) Delayed wound healing Status: Acute Current Visit: No Code(s): T14.8XXD - Other injury of unspecified body region, subsequent encounter (7) Obesity (BMI 30-39.9) Status: Chronic Current Visit: No Code(s): E66.9 - Obesity, unspecified Type of Wound Date of Service: 09/30/18 Chief Complaint: right dorsal foot ulcer History of Wound: This 73-year-old diabetic female who was referred to the wound healing center for a dorsal distal right foot ulcer. Patient has been dressing the ulcer site with Lotus. Patient currently denies any feelings of nausea, vomiting, fever, chills. She has occasional mild foot pain. She had recent intervention with Dr. Fry to restore blood flow to the right foot. She denies nutrition supplementation use. She relates she had some redness occurring to the right foot when she presented to the [facility] emergency urgent center this past week. She was started on oral antibiotics again and a culture was obtained. She is amendable to have these medical records sent over. She relates the redness has resolved and she denies foot odor. This patient was seen today in courtesy for Dr. Burks. Progress of Wound: Ulcer continues to improve. Patient denies any feelings of nausea, vomiting, fever, chills. - Physical Exam Vital Signs Temp Pulse Resp BP 96.6 F L 78 16 148/66 H 09/30/18 10:35 09/30/18 10:35 09/30/18 10:35 09/30/18 10:35 General: Alert, Oriented x3, Cooperative, No apparent distress Extremities: Capillary Refill Less than 3 Seconds, No Calf Tenderness - Negative Heidy and Choi signs, Diminished Peripheral Pulses, Edema - Mild Skin: Ulcer/ Wound - Ulcer with fat layer exposed noted to the dorso distal aspect of the right foot just proximal to the second and third toes. Ulcer base is a mixture of adherent slough, fibrotic tissue, biofilm, granular tissue, and some slight surrounding hyperkeratotic tissue. Continued amount of increasing granular tissue noted that continues to slowly cover the small area of exposed tendon again this week. There is no purulence, no streaking cellulitis, no significant increase in warmth, no probing to bone, no tracking, and no undermining at this time. Surrounding skin is hairless and atrophic. Wound Measurements and Assessment WC - Nurse 1 - General Ulcer Measurement Start: 09/09/18 09:53 Freq: Status: Active Protocol: Activity Type Activity Date Activity User E-Sign Co-Sign Detail Recorded Client Recorded Date Recorded By Document 09/30/18 10:35 [id number] 09/30/18 10:41 [facility] 09/30/18 10:35 Wound Center Nurse 1 [Ulcer Assessment] 1-right dorsal foot -Combined with other wound No -Current Size (cm) - Length 0.5 -Current Size (cm) - Width 0.7 -Current Size (cm) - Depth 0.3 -Total Square Cm 0.35 -Date of Last Picture (Recall this 09/30/18 field) -Photo Taken Yes -Epithelialization None Present -Tunneling No -Undermining/Tunneling No -Circular Undermining No -Exudate Amt Small -Exudate Type Serous -Wound Margin Distinct, Outline Attached -Granulation Amt None Present (0 %) -Slough/Fibrin Yes -Necrosis Amt Large (67-100%) -Necrotic Tissue Type Adherent Slough -Texture (Becky-wound Skin Appearance) Assessed, Scarring -Moisture (Becky-wound Skin Appearance Assessed ) -Color (Becky-wound Skin Appearance) Assessed -Temperature (Becky-wound Skin No Abnormality Appearance) (Pt Warm) -Tenderness on Palpation (Becky-wound No Skin Appearance) -Ulcer Cleansing Rinsed/ Irrigated with Saline -Foul Odor after Cleansing No -Anesthetic Used 5% Lidocaine Gel Musculoskeletal: Tenderness - Very minor tenderness with manipulation of ulcer site Neurological: - - Epicritic sensation grossly absent to lower extremities Psych/Mental Status: Normal Affect, Appropriate Debridement Note Post-Debridement Measurements/Treatment WC - Nurse 2 - General Ulcer CM Notes Start: 09/09/18 09:53 Freq: Status: Active Protocol: Activity Type Activity Date Activity User E-Sign Co-Sign Detail Recorded Client Recorded Date Recorded By Document 09/09/18 10:15 AN [id number] 09/09/18 10:16 AN Document 09/16/18 11:08 AN [id number] 09/16/18 11:10 AN Document 09/23/18 13:08 AN [id number] 09/23/18 13:10 AN 09/09/18 09/16/18 09/23/18 10:15 11:08 13:08 Wound Center Nurse 2 1-right dorsal foot -Time 10:15 11:09 13:09 -Correct Patient Yes Yes Yes -Correct Side, Site, Position Yes Yes Yes -Correct Procedure Yes Yes Yes -Procedure Performed Yes Yes Yes -Type of Procedure Debridement Debridement Debridement -Clinical Debridement Subcutaneous Subcutaneous Subcutaneous -Post Debridement Size (cm) - Length 1.0 0.9 0.9 -Post Debridement Size (cm) - Width 1.0 0.7 0.9 -Post Debridement Size (cm) - Depth 0.2 0.2 0.3 -Total Square Cm 1.00 0.63 0.81 -Wound/Ulcer Outcome Not Healed Not Healed Not Healed -Ulcer Cleansing Rinsed/ Rinsed/ Irrigated with Irrigated with Saline Saline -Foul Odor after Cleansing No No -Bioengineered Tissue No No -Bleeding Controlled with Pressure Pressure -Offloading Yes Yes -Type of Offloading Surgical Shoe Surgical Shoe -Treatment Response Procedure Procedure Tolerated Well Tolerated Well Pain Scale: 0-10 Numeric Is Patient Pain Free? Yes Yes Wound debrided: Right dorsal distal foot Laterality: Right Type of Debridement: Excisional debridement Anesthesia Used: 5% Lidocaine Gel Depth: in the subcutaneous layer Percentage of wound debrided: 100 Instrument Used: 3mm curette Tissue Removed: Adherent slough, fibrin, biofilm Severity: Fat Layer Exposed Amount of bleeding with debridement: Mild Bleeding Controlled with: Pressure Patient tolerated procedure well Assessment/Plan Active Problems (Last Reviewed 08/18/18 @ 14:26 by Keshav Lambert DO) Ulcer of right foot with fat layer exposed (Chronic) Type 2 diabetes mellitus with diabetic polyneuropathy (Chronic) Assessment: Ulcer right foot with fat and tendon layer exposed. cellulitis resolving. DM with neuropathy. PVD. Lower extremity edema. Other comorbidities Plan: Patient was carefully examined and evaluated again today with a family member present in the room. Continued improvement noted again this week. Almost no tendon visible today. A subcutaneous debridement was performed as noted in the clinical panel. Ulcer site was carefully dressed with Lotus followed by dry sterile dressing. Patient is to have the dressing changed in this manner on a daily basis. She was instructed to not soak her foot. Patient is to continue with surgical shoe to keep the ulcer site completely offloaded. She was instructed to keep any kind of pressure away from the ulcer site. Patient's last hemoglobin A1c was 10.8. The importance of tight glycemic control was discussed again today. I also recommend nutritional supplementation with a high protein diet in order to help optimize ulcer healing potential. LEAS and Venous doppler exams performed and detailed report in patient's chart. There is diminished toe brachial index noted on the right side as well as noncompressible DP artery. Patient saw Dr. Linda in [place]. Since that appointment she was referred back to his partner Dr. Fry who evaluated the patient and performed an angiogram. According to his operative report, he was able to improve blood flow through the peroneal and dorsalis pedis arteries. 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 Full reoport can be found in patient's electronic chart. Patient was educated on all signs and symptoms of local and systemic infection, and she was instructed to go to the emergency room immediately should she notice any of these before next visit. All questions were answered to the patient and her family satisfaction. Patient will follow back up at the wound healing center in 1 week to check on progress, but is to follow back up sooner if needed before then.
[2018-10-07 10:31] VITALS: BP 140/62; PULSE 90; RESP 16; TEMP 36.6; BMI 39.4
--- NOTE | 2018-10-07 11:23 | PN.PCM_ITS ---
(1) Ulcer of right foot with fat layer exposed Status: Chronic Current Visit: Yes Code(s): L97.512 - Non-pressure chronic ulcer of other part of right foot with fat layer exposed (2) Type 2 diabetes mellitus with diabetic polyneuropathy Status: Chronic Current Visit: Yes Code(s): E11.42 - Type 2 diabetes mellitus with diabetic polyneuropathy (3) PVD (peripheral vascular disease) Status: Suspected Current Visit: Yes Code(s): I73.9 - Peripheral vascular disease, unspecified (4) Lower extremity edema Status: Acute Current Visit: No Code(s): R60.0 - Localized edema (5) Venous insufficiency Status: Suspected Current Visit: Yes Code(s): I87.2 - Venous insufficiency (chronic) (peripheral) (6) Delayed wound healing Status: Acute Current Visit: No Code(s): T14.8XXD - Other injury of unspecified body region, subsequent encounter (7) Obesity (BMI 30-39.9) Status: Chronic Current Visit: No Code(s): E66.9 - Obesity, unspecified Type of Wound Date of Service: 10/07/18 Chief Complaint: right dorsal foot ulcer History of Wound: This 73-year-old diabetic female who was referred to the wound healing center for a dorsal distal right foot ulcer. Patient has been dressing the ulcer site with Lotus. Patient currently denies any feelings of nausea, vomiting, fever, chills. She has occasional mild foot pain. She had recent intervention with Dr. Fry to restore blood flow to the right foot. She denies nutrition supplementation use. She relates she had some redness occurring to the right foot when she presented to the [facility] emergency urgent center this past week. She was started on oral antibiotics again and a culture was obtained. She is amendable to have these medical records sent over. She relates the redness has resolved and she denies foot odor. This patient was seen today in courtesy for Dr. Burks. Progress of Wound: Ulcer continues to improve slowly. Patient denies any feelings of nausea, vomiting, fever, chills. - Physical Exam Vital Signs Temp Pulse Resp BP 97.8 F 90 16 140/62 H 10/07/18 10:31 10/07/18 10:31 10/07/18 10:31 10/07/18 10:31 General: Alert, Oriented x3, Cooperative, No apparent distress Extremities: Capillary Refill Less than 3 Seconds, No Calf Tenderness - Negative Heidy and Choi signs, Diminished Peripheral Pulses, Edema - Mild to lower extremities Skin: Ulcer/ Wound - Ulcer with fat layer exposed noted to the dorso distal aspect of the right foot just proximal to the second and third toes. Ulcer base is a mixture of adherent slough, fibrotic tissue, biofilm, granular tissue, and some slight surrounding hyperkeratotic tissue. Continued amount of increasing granular tissue noted that continues to slowly cover the small area of exposed tendon again this week. There is no purulence, no streaking cellulitis, no significant increase in warmth, no probing to bone, no tracking, and no undermining at this time. Surrounding skin is hairless and atrophic. Wound Measurements and Assessment WC - Nurse 1 - General Ulcer Measurement Start: 09/09/18 09:53 Freq: Status: Active Protocol: Activity Type Activity Date Activity User E-Sign Co-Sign Detail Recorded Client Recorded Date Recorded By Document 10/07/18 10:31 [facility] [id number] 10/07/18 10:36 [facility] 10/07/18 10:31 Wound Center Nurse 1 [Ulcer Assessment] 1-right dorsal foot -Combined with other wound No -Current Size (cm) - Length 0.5 -Current Size (cm) - Width 0.3 -Current Size (cm) - Depth 0.3 -Total Square Cm 0.15 -Photo Taken No -Epithelialization Small 1-33% -Tunneling No -Undermining/Tunneling No -Circular Undermining No -Exudate Amt Small -Exudate Type Serous -Wound Margin Distinct, Outline Attached -Granulation Amt Large (67-100%) -Granulation Quality [place] -Slough/Fibrin Yes -Necrosis Amt Small (1-33%) -Necrotic Tissue Type Adherent Slough -Texture (Becky-wound Skin Appearance) Assessed, Scarring -Moisture (Becky-wound Skin Appearance Assessed ) -Color (Becky-wound Skin Appearance) Assessed -Temperature (Becky-wound Skin No Abnormality Appearance) (Pt Warm) -Tenderness on Palpation (Becky-wound No Skin Appearance) -Ulcer Cleansing Rinsed/ Irrigated with Saline -Foul Odor after Cleansing No -Anesthetic Used 5% Lidocaine Gel Musculoskeletal: Tenderness - Very minor tenderness with manipulation of ulcer site Neurological: - - Epicritic sensation grossly absent to lower extremities Psych/Mental Status: Normal Affect, Appropriate Debridement Note Post-Debridement Measurements/Treatment WC - Nurse 2 - General Ulcer CM Notes Start: 09/09/18 09:53 Freq: Status: Active Protocol: Activity Type Activity Date Activity User E-Sign Co-Sign Detail Recorded Client Recorded Date Recorded By Document 09/09/18 10:15 AN [id number] 09/09/18 10:16 AN Document 09/16/18 11:08 AN [id number] 09/16/18 11:10 AN Document 09/23/18 13:08 AN [id number] 09/23/18 13:10 AN 09/09/18 09/16/18 09/23/18 10:15 11:08 13:08 Wound Center Nurse 2 1-right dorsal foot -Time 10:15 11:09 13:09 -Correct Patient Yes Yes Yes -Correct Side, Site, Position Yes Yes Yes -Correct Procedure Yes Yes Yes -Procedure Performed Yes Yes Yes -Type of Procedure Debridement Debridement Debridement -Clinical Debridement Subcutaneous Subcutaneous Subcutaneous -Post Debridement Size (cm) - Length 1.0 0.9 0.9 -Post Debridement Size (cm) - Width 1.0 0.7 0.9 -Post Debridement Size (cm) - Depth 0.2 0.2 0.3 -Total Square Cm 1.00 0.63 0.81 -Wound/Ulcer Outcome Not Healed Not Healed Not Healed -Ulcer Cleansing Rinsed/ Rinsed/ Irrigated with Irrigated with Saline Saline -Foul Odor after Cleansing No No -Bioengineered Tissue No No -Bleeding Controlled with Pressure Pressure -Offloading Yes Yes -Type of Offloading Surgical Shoe Surgical Shoe -Treatment Response Procedure Procedure Tolerated Well Tolerated Well Pain Scale: 0-10 Numeric Is Patient Pain Free? Yes Yes Wound debrided: Right dorsal distal foot Laterality: Right Type of Debridement: Excisional debridement Anesthesia Used: 5% Lidocaine Gel Depth: in the subcutaneous layer Percentage of wound debrided: 100 Instrument Used: 3mm curette Tissue Removed: Adherent slough, fibrin, biofilm Severity: Fat Layer Exposed Amount of bleeding with debridement: Mild Bleeding Controlled with: Pressure Patient tolerated procedure well Assessment/Plan Active Problems (Last Reviewed 08/18/18 @ 14:26 by Keshav Lambert DO) Ulcer of right foot with fat layer exposed (Chronic) Type 2 diabetes mellitus with diabetic polyneuropathy (Chronic) Assessment: Ulcer right foot with fat and tendon layer exposed. cellulitis resolving. DM with neuropathy. PVD. Lower extremity edema. Other comorbidities Plan: Patient was carefully examined and evaluated again today with a family member present in the room. Slow improvement continued. A subcutaneous debridement was performed as noted in the clinical panel. Ulcer site was carefully dressed with Lotus followed by dry sterile dressing. Patient is to have the dressing changed in this manner on a daily basis. She was instructed to not soak her foot. Patient is to continue with surgical shoe to keep the ulcer site completely offloaded. She was instructed to keep any kind of pressure away from the ulcer site. Patient's last hemoglobin A1c was 10.8. The importance of tight glycemic control was discussed again today. I also recommend nutritional supplementation with a high protein diet in order to help optimize ulcer healing potential. LEAS and Venous doppler exams performed and detailed report in patient's chart. There is diminished toe brachial index noted on the right side as well as noncompressible DP artery. Patient saw Dr. Linda in [place]. Since that appointment she was referred back to his partner Dr. Fry who evaluated the patient and performed an angiogram. According to his operative report, he was able to improve blood flow through the peroneal and dorsalis pedis arteries. 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 Full reoport can be found in patient's electronic chart. Patient was educated on all signs and symptoms of local and systemic infection, and she was instructed to go to the emergency room immediately should she notice any of these before next visit. All questions were answered to the patient and her family satisfaction. Patient will follow back up at the wound healing center in 1 week to check on progress, but is to follow back up sooner if needed before then.
== END 2018-10-09 23:59 ==
LOC: WC 10:00
PROVIDERS: Family Provider Family Medicine; PCP Family Medicine; Referring Provider Podiatrist; Visit Provider Podiatrist
DX: E11.621 Type 2 diabetes mellitus with foot ulcer (principal); E11.42 Type 2 diabetes mellitus with diabetic polyneuropathy; E11.51 Type 2 diabetes mellitus with diabetic peripheral angiopathy without gangrene; R60.0 Localized edema; L97.512 Non-pressure chronic ulcer of other part of right foot with fat layer exposed; E66.9 Obesity, unspecified; Z68.39 Body mass index [BMI] 39.0-39.9, adult; Z71.3 Dietary counseling and surveillance
CPT/HCPCS: 11042

== ENCOUNTER 2018-10-08 08:01 | Emergency (ER) | payer OTHER, SELFPAY ==
[2018-10-07 10:31] VITALS: BMI 39.4
[2018-10-08 08:02] VITALS: BP 165/81; PULSE 102; RESP 17; TEMP 36.7; O2SAT 93; BMI 39.4
[2018-10-08 08:21] LABS: Bedside Glucose 324 mg/dL (70-110)
--- NOTE | 2018-10-08 08:21 | EKG12_ITS ---
Test Reason : NAUSEA/VOMITING Blood Pressure : / mmHG Vent. Rate : 099 BPM Atrial Rate : 099 BPM P-R Int : 152 ms QRS Dur : 094 ms QT Int : 344 ms P-R-T Axes : 027 -35 051 degrees QTc Int : 441 ms Sinus rhythm with Premature supraventricular complexes Left axis deviation Moderate voltage criteria for LVH, may be normal variant Poor R- Wave Progression Abnormal ECG Confirmed by MEGAN NEWMAN, HAILEY ([id number]), communications editor EDDEI FIELDS ([id number]) on 10/12/2018 11:28:00 AM Referred By: Confirmed By:HAILEY GUZMAN MD
--- NOTE | 2018-10-08 08:25 | ED.DCSUM_ITS ---
- ER Visit Summary Date of Service: 10/08/18 Chief Complaint: I am sick all over History of Present Illness: The patient is a 73 F who states that she does not. She states that she is sick all over. Has been on Thursday she had nausea and vomiting. She still has not regained her appetite. Though she has not had any further vomiting. No diarrhea. No urinary symptoms. She notes chills and hot flashes at home. She notes a headache generalized myalgias she notes her blood sugar has been elevated. She saw wound care yesterday for a chronic wound on the right foot. She states she was not feeling as bad then she does now. States that she recently had an angiogram of the right leg with scraping. She states that the second toe on her left foot hurts. She denies any trauma. Physical Examination: 165/81 heart rate 102 respirations are from room air to 90 degrees Gen: Well-nourished well-developed obese Head: Normocephalic atraumatic Eyes: Perrl EOMI ENT: TMs clear no rhinorrhea moist mucous membranes Neck: Supple no lymphadenopathy no JVD nontender no meningitic findings CVS: Regular rate tachycardic rhythm no murmurs normal S1-S2 Respiratory: No distress clear to auscultation bilaterally chest nontender Abdomen: Soft nontender nondistended normal bowel sounds no masses Back: Nontender Extremity: Nontender 1+ symmetric edema of the lower extremities. The left second toe is warm pink no deformity less than 3-second capillary refill chronic wound to the right foot Skin: Normal color no rash Neuro: alert orientated ?3 CN II-XII intact normal strength sensation Psych: Normal affect normal mood Test Results: White count 13.4. Blood chemistry showed a glucose of 349. Creatinine 1.1. (This is near baseline) lactic acid 1.5. Chest x-ray negative. EKG sinus at a rate of 99. Urinalysis showed 10-25 white blood cells, 2+ bacteria positive nitrates. Emergency Department Course and Treatment: Urine culture sent. She received IV fluids. Patient's heart rate is in the 90s. She is smiling and conversant with family. This point I believe we can try to treat this urinary tract infection at home. I will place her on Keflex. I do not have an etiology for the left toe pain. Toe appears to be neurovascular intact. There is no deformity. No swelling or ecchymosis. She does have follow-up with podiatry next week. I recommend that she discuss this with them. Impression: 1.. Urinary tract infection 2. Left second toe pain This note was generated with [employer] dictation software. It may contain incorrect words, spelling, and punctuation that were not noted in review of the chart prior to signing ED Disposition - Plan for ED Patient: Disposition: Home or Assisted Living Instructions: Understanding Urinary Tract Infections (UTIs) Prescriptions: Cephalexin [Keflex] 500 mg PO Q6 #28 cap Prescription Printed Referrals: Keshav Lambert, [Primary Care Provider] - As Needed Additional Instructions: Please stay well-hydrated. As your infection is treated your blood sugar should start to decrease. Next week when you go to the wound clinic if you are still having toe pain please mention this to the perlite grinder.
--- NOTE | 2018-10-08 08:30 | RAD_ITS ---
STUDY: X-RAY CHEST REASON FOR EXAM: Female, 73 years old. Weakness. TECHNIQUE: Single AP portable view of the chest. COMPARISON: None. FINDINGS: The lungs are clear and expanded. There is no demonstrated pleural abnormality. There is moderate cardiac enlargement. Normal mediastinum and lolis. Normal visualized pulmonary arteries. There is atherosclerotic calcification of the aortic arch with tortuosity. There are diffuse degenerative changes of the visualized thoracic spine. Normal visualized ribs, clavicles, and shoulders. There is no demonstrated abnormality of the visualized soft tissue structures of the upper abdomen. RAD/Chest 1 View (Portable) IMPRESSION: Cardiomegaly. Electronically Signed: Gokul Schulte, at 8:46 EDT , Service support ,
[2018-10-08] MEDS: 0.9% Normal Saline 1,000 ML 1000 ML IV (08:37)
[2018-10-08 08:51] LABS: Absolute Lymphocyte Count 1.58 X10^3/uL (0.83-4.51); Absolute Neutrophil Count 10.8 X10^3/uL (2.0-7.7); Basophil# 0.03 X10^3/uL; Basophil% 0.2 % (0-1); Eosinophil# 0.01 X10^3/uL; Eosinophils% 0.1 % (0-5); Hematocrit 39.7 % (37-47); Hemoglobin 13.3 g/dL (12.0-15.0); Lymphocyte # 1.58 X10^3/ul (4.0); Lymphocyte % 11.8 % (19-41); Mean Corp Hgb Conc 33.5 g/dL (32-36); Mean Corpuscular Hgb 30.4 pg (27.0-32.0); Mean Corpuscular Volume 90.6 fL (81-99); Mean Platelet Vol. 11.8 fl (6.2-12.0); Monocyte# 0.99 X10^3/uL; Monocyte% 7.4 % (0-10); NRBC Flagged by Analyzer 0 % (0-5); Neutrophil # 10.77 X10^3/uL (2.7-7.7); Neutrophil % 80.1 % (47-70); Platelet Count 253 K/mm3 (150-450); RBC Distribution Width CV 13.2 % (11.6-14.6); Red Blood Count 4.38 M/mm3 (4.2-5.4); White Blood Count 13.4 K/mm3 (4.4-11.0)
[2018-10-08 09:01] LABS: International Normalized Ratio 1.2; Prothrombin Time (Protime)PT. 15.1 SECONDS (11.7-14.9)
[2018-10-08 09:02] LABS: Partial Thromboplast Time 43.4 Seconds (24.1-36.2)
[2018-10-08 09:14] LABS: AST(SGOT) 33 U/L (15-37); Alanine Aminotransfer ALT/SGPT 43 U/L (13-56); Albumin, Serum 3.4 g/dL (3.2-5.0); Alkaline Phosphatase 79 U/L (45-117); Anion Gap 8 (5-15); BUN 13 mg/dL (7-18); BUN/Creat Ratio 11.8 RATIO (10-20); Bilirubin, Direct 0.26 mg/dL (0.00-0.30); Chloride 99 mmol/L (98-107); EST Glomerular Filtration Rate 52 mL/min (>60); Est Glom Filt Rate - Afr Amer 63 mL/min (>60); Estimated Creatinine Clearance 42.21 ml/min; Globulin 4.4 g/dL (2.2-4.2); Glucose 349 mg/dL (74-106); Lactic Acid 1.5 mmol/L (0.4-2.0); Lipase 81 U/L (73-393); Potassium 4.2 mmol/L (3.5-5.1); Protein, Total 7.8 g/dL (6.4-8.2); Sodium Level 132 mmol/L (136-145)
--- NOTE | 2018-10-08 09:32 | ED.RN ---
PT WAS AMBULATED TO THE RESTROOM WITH CANE. SHE WAS UNSTABLE WITH CANE ALONE. DAUGHTER AND MYSELF WERE ABLE TO STABLIZE HER TO AMBULATE TO THE RESTROOM AND BACK. Ramez CARUSO RN [id number]
[2018-10-08 09:43] LABS: Mucous, Urine 0 SEEN /hpf (<or=2+); Red Blood Cells-Urine 0 SEEN /hpf (0-5)
[2018-10-08 09:49] LABS: Color, Urine Yellow (Yellow); Glucose, Dipstick 1000 mg/dl (Normal); Ketone-Dipstick 15 mg/dl (Negative); Leukocyte Esterase-Dipstick 100 /ul (Negative); Nitrite-Dipstick Positive (Negative); Occult Blood-Urine 25 /ul (Negative); Protein-Dipstick 30 mg/dl (Negative); Urine Bilirubin Dipstick Negative (Negative); Urine Clarity Sl. Cloudy (Clear); Urine Urobilinogen Normal (Normal)
[2018-10-08 10:01] LABS: Bacteria 2+ /hpf (None Seen); Squamous Epithelial Cells - UA 0-5 SEEN /hpf (5-10); White Blood Cells 10-25 SEEN /hpf (0-5)
[2018-10-08] MEDS: 0.9% Normal Saline 1,000 ML 150 ML IV (10:01)
[2018-10-08 10:02] VITALS: BP 136/62; PULSE 92; RESP 16; O2SAT 94
[2018-10-08 10:42] VITALS: BP 129/63; PULSE 94; RESP 20; O2SAT 96
== END 2018-10-08 11:01 | disposition home or self-care (01) ==
PROVIDERS: Emergency Provider Emergency Medicine; Family Provider Family Medicine; PCP Family Medicine
DX: N39.0 Urinary tract infection, site not specified (principal); M79.675 Pain in left toe(s); R60.0 Localized edema; E11.9 Type 2 diabetes mellitus without complications; R11.2 Nausea with vomiting, unspecified; M79.10 Myalgia, unspecified site; R51 Headache; E66.9 Obesity, unspecified; Z79.02 Long term (current) use of antithrombotics/antiplatelets; Z79.4 Long term (current) use of insulin; Z79.899 Other long term (current) drug therapy
CPT/HCPCS: 71045; 80048; 80076; 81001; 82962; 83605; 83690; 85025; 85610; 85730; 87077; 87086; 87088; 87186; 93005; 96360; 96361; 99285; J7030

== ENCOUNTER 2018-11-04 08:00 | Outpatient (RCR) | payer OTHER, SELFPAY ==
[2018-10-10 00:45] VITALS: BP 140/62; PULSE 90; RESP 16; TEMP 36.6
[2018-10-14 10:29] VITALS: BP 151/70; PULSE 77; RESP 18; BMI 39.4
--- NOTE | 2018-10-14 12:29 | PCM.WC.PN ---
(1) Ulcer of right foot with fat layer exposed Status: Chronic Current Visit: No Code(s): L97.512 - Non-pressure chronic ulcer of other part of right foot with fat layer exposed (2) Type 2 diabetes mellitus with diabetic polyneuropathy Status: Chronic Current Visit: No Code(s): E11.42 - Type 2 diabetes mellitus with diabetic polyneuropathy (3) PVD (peripheral vascular disease) Status: Suspected Current Visit: No Code(s): I73.9 - Peripheral vascular disease, unspecified (4) Lower extremity edema Status: Acute Current Visit: No Code(s): R60.0 - Localized edema (5) Venous insufficiency Status: Suspected Current Visit: No Code(s): I87.2 - Venous insufficiency (chronic) (peripheral) (6) Delayed wound healing Status: Acute Current Visit: No Code(s): T14.8XXD - Other injury of unspecified body region, subsequent encounter (7) Obesity (BMI 30-39.9) Status: Chronic Current Visit: No Code(s): E66.9 - Obesity, unspecified Type of Wound Date of Service: 10/14/18 Chief Complaint: right dorsal foot ulcer History of Wound: This 73-year-old diabetic female who was referred to the wound healing center for a dorsal distal right foot ulcer. Patient has been dressing the ulcer site with Lotus. Patient currently denies any feelings of nausea, vomiting, fever, chills. She has occasional mild foot pain. She had recent intervention with Dr. Fry to restore blood flow to the right foot. She denies nutrition supplementation use. She relates she had some redness occurring to the right foot when she presented to the [facility] emergency urgent center this past week. She was started on oral antibiotics again and a culture was obtained. She is amendable to have these medical records sent over. She relates the redness has resolved and she denies foot odor. This patient was seen today in courtesy for Dr. Burks. Progress of Wound: Continued improvement noted. Patient denies any feelings of nausea, vomiting, fever, chills. - Physical Exam Vital Signs Temp Pulse Resp BP 97.8 F 77 18 151/70 H 10/10/18 00:45 10/14/18 10:29 10/14/18 10:29 10/14/18 10:29 General: Alert, Oriented x3, Cooperative, No apparent distress Extremities: Capillary Refill Less than 3 Seconds, No Calf Tenderness - Negative Heidy and Choi signs, Diminished Peripheral Pulses, Edema - Mild lower extremity edema Skin: Ulcer/ Wound - Ulcer with fat layer exposed noted to the dorso distal aspect of the right foot just proximal to the second and third toes. Ulcer base is a mixture of adherent slough, fibrotic tissue, biofilm, granular tissue, and some slight surrounding hyperkeratotic tissue. Continued amount of increasing granular tissue noted. No more visible tendon. There is no purulence, no streaking cellulitis, no significant increase in warmth, no probing to bone, no tracking, and no undermining at this time. Surrounding skin is hairless and atrophic. Wound Measurements and Assessment WC - Nurse 1 - General Ulcer Measurement Start: 10/14/18 10:27 Freq: Status: Active Protocol: Activity Type Activity Date Activity User E-Sign Co-Sign Detail Recorded Client Recorded Date Recorded By Document 10/14/18 10:29 EVAN [id number] 10/14/18 10:35 EVAN 10/14/18 10:29 Wound Center Nurse 1 [Ulcer Assessment] 1-right dorsal foot -Combined with other wound No -Current Size (cm) - Length 0.2 -Current Size (cm) - Width 0.1 -Current Size (cm) - Depth 0.1 -Total Square Cm 0.02 -Photo Taken Yes -Epithelialization Large 67-100% -Tunneling No -Undermining/Tunneling No -Circular Undermining No -Exudate Amt None Present -Wound Margin Flat & Intact -Granulation Amt Large (67-100%) -Granulation Quality Pale -Slough/Fibrin Yes -Necrosis Amt Small (1-33%) -Necrotic Tissue Type Adherent Slough -Structure Exposed N/A -Texture (Becky-wound Skin Appearance) Assessed, Localized Edema -Moisture (Becky-wound Skin Appearance Assessed,Dry/ ) Scaly -Color (Becky-wound Skin Appearance) No Abnormality, Assessed -Temperature (Becky-wound Skin No Abnormality Appearance) (Pt Warm) -Tenderness on Palpation (Becky-wound No Skin Appearance) -Ulcer Cleansing Rinsed/ Irrigated with Saline -Foul Odor after Cleansing No -Anesthetic Used 4% Lidocaine Solution,5% Lidocaine Gel [Edema Assessment] -Lower Limb Edema Present NA WC - Nurse 2 - General Ulcer CM Notes Start: 10/14/18 10:27 Freq: Status: Active Protocol: Activity Type Activity Date Activity User E-Sign Co-Sign Detail Recorded Client Recorded Date Recorded By Document 10/14/18 10:53 AN [id number] 10/14/18 10:54 AN 10/14/18 10:53 Wound Center Nurse 2 [Procedure/Treatment] 1-right dorsal foot -Time 10:53 -Correct Patient Yes -Correct Side, Site, Position Yes -Correct Procedure Yes -Procedure Performed Yes -Type of Procedure Debridement -Clinical Debridement Subcutaneous -Post Debridement Size (cm) - Length 0.4 -Post Debridement Size (cm) - Width 0.3 -Post Debridement Size (cm) - Depth 0.2 -Total Square Cm 0.12 -Wound/Ulcer Outcome Not Healed -Ulcer Cleansing Rinsed/ Irrigated with Saline -Foul Odor after Cleansing No -Bioengineered Tissue No -Bleeding Controlled with Pressure -Offloading Yes -Type of Offloading Surgical Shoe -Treatment Response Procedure Tolerated Well [See Physician Procedure note for Specifics] Pain Scale: 0-10 Numeric [Pain] -Is Patient Pain Free? Yes Musculoskeletal: Tenderness - Very minor tenderness with manipulation of ulcer site Neurological: - - Epicritic sensation grossly absent to lower extremities Psych/Mental Status: Normal Affect, Appropriate Debridement Note Post-Debridement Measurements/Treatment WC - Nurse 2 - General Ulcer CM Notes Start: 10/14/18 10:27 Freq: Status: Active Protocol: Activity Type Activity Date Activity User E-Sign Co-Sign Detail Recorded Client Recorded Date Recorded By Document 10/14/18 10:53 AN [id number] 10/14/18 10:54 AN 10/14/18 10:53 Wound Center Nurse 2 1-right dorsal foot -Time 10:53 -Correct Patient Yes -Correct Side, Site, Position Yes -Correct Procedure Yes -Procedure Performed Yes -Type of Procedure Debridement -Clinical Debridement Subcutaneous -Post Debridement Size (cm) - Length 0.4 -Post Debridement Size (cm) - Width 0.3 -Post Debridement Size (cm) - Depth 0.2 -Total Square Cm 0.12 -Wound/Ulcer Outcome Not Healed -Ulcer Cleansing Rinsed/ Irrigated with Saline -Foul Odor after Cleansing No -Bioengineered Tissue No -Bleeding Controlled with Pressure -Offloading Yes -Type of Offloading Surgical Shoe -Treatment Response Procedure Tolerated Well Pain Scale: 0-10 Numeric Is Patient Pain Free? Yes Wound debrided: Right dorsal distal foot Laterality: Right Type of Debridement: Excisional debridement Anesthesia Used: 5% Lidocaine Gel Depth: in the subcutaneous layer Percentage of wound debrided: 100 Instrument Used: 3mm curette Tissue Removed: Adherent slough, fibrin, biofilm Severity: Fat Layer Exposed Amount of bleeding with debridement: Mild Bleeding Controlled with: Pressure Patient tolerated procedure well Assessment/Plan Assessment: Ulcer right foot with fat and tendon layer exposed. cellulitis resolving. DM with neuropathy. PVD. Lower extremity edema. Other comorbidities Plan: Patient was carefully examined and evaluated again today with a family member present in the room. Continued improvement noted. A subcutaneous debridement was performed as noted in the clinical panel. Ulcer site was carefully dressed with Lotus followed by dry sterile dressing. Patient is to have the dressing changed in this manner on a daily basis. She was instructed to not soak her foot. Patient is to continue with surgical shoe to keep the ulcer site completely offloaded. She was instructed to keep any kind of pressure away from the ulcer site. Patient's last hemoglobin A1c was 10.8. The importance of tight glycemic control was discussed again today. I also recommend nutritional supplementation with a high protein diet in order to help optimize ulcer healing potential. LEAS and Venous doppler exams performed and detailed report in patient's chart. There is diminished toe brachial index noted on the right side as well as noncompressible DP artery. Patient saw Dr. Linda in [place]. Since that appointment she was referred back to his partner Dr. Fry who evaluated the patient and performed an angiogram. According to his operative report, he was able to improve blood flow through the peroneal and dorsalis pedis arteries. 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 Full reoport can be found in patient's electronic chart. Patient was educated on all signs and symptoms of local and systemic infection, and she was instructed to go to the emergency room immediately should she notice any of these before next visit. All questions were answered to the patient and her family satisfaction. Patient will follow back up at the wound healing center in 1 week to check on progress, but is to follow back up sooner if needed before then.
[2018-10-21 09:56] VITALS: BP 136/72; PULSE 73; RESP 18; TEMP 36.6; BMI 39.4
--- NOTE | 2018-10-21 10:28 | PCM.WC.PN ---
(1) Ulcer of right foot with fat layer exposed Status: Chronic Current Visit: No Code(s): L97.512 - Non-pressure chronic ulcer of other part of right foot with fat layer exposed (2) Type 2 diabetes mellitus with diabetic polyneuropathy Status: Chronic Current Visit: No Code(s): E11.42 - Type 2 diabetes mellitus with diabetic polyneuropathy (3) PVD (peripheral vascular disease) Status: Suspected Current Visit: No Code(s): I73.9 - Peripheral vascular disease, unspecified (4) Lower extremity edema Status: Acute Current Visit: No Code(s): R60.0 - Localized edema (5) Venous insufficiency Status: Suspected Current Visit: No Code(s): I87.2 - Venous insufficiency (chronic) (peripheral) (6) Delayed wound healing Status: Acute Current Visit: No Code(s): T14.8XXD - Other injury of unspecified body region, subsequent encounter (7) Obesity (BMI 30-39.9) Status: Chronic Current Visit: No Code(s): E66.9 - Obesity, unspecified Type of Wound Date of Service: 10/21/18 Chief Complaint: right dorsal foot ulcer History of Wound: This 73-year-old diabetic female who was referred to the wound healing center for a dorsal distal right foot ulcer. Patient has been dressing the ulcer site with Lotus. Patient currently denies any feelings of nausea, vomiting, fever, chills. She has occasional mild foot pain. She had recent intervention with Dr. Fry to restore blood flow to the right foot. She denies nutrition supplementation use. She relates she had some redness occurring to the right foot when she presented to the [facility] emergency urgent center this past week. She was started on oral antibiotics again and a culture was obtained. She is amendable to have these medical records sent over. She relates the redness has resolved and she denies foot odor. This patient was seen today in courtesy for Dr. Burks. Progress of Wound: Continued slow/steady improvement noted. Patient denies any feelings of nausea, vomiting, fever, chills. - Physical Exam Vital Signs Temp Pulse Resp BP 97.8 F 73 18 136/72 H 10/21/18 09:56 10/21/18 09:56 10/21/18 09:56 10/21/18 09:56 General: Alert, Oriented x3, Cooperative, No apparent distress Extremities: Capillary Refill Less than 3 Seconds, No Calf Tenderness - Negative Heidy and Choi signs, Diminished Peripheral Pulses, Edema - Mild lower extremity edema Skin: Ulcer/ Wound - Ulcer with fat layer exposed noted to the dorso distal aspect of the right foot just proximal to the second and third toes. Ulcer base is a mixture of adherent slough, fibrotic tissue, biofilm, granular tissue, and some slight surrounding hyperkeratotic tissue. Continued amount of increasing granular tissue noted. No more visible tendon. There is no purulence, no streaking cellulitis, no significant increase in warmth, no probing to bone, no tracking, and no undermining at this time. Surrounding skin is hairless and atrophic. Wound Measurements and Assessment WC - Nurse 1 - General Ulcer Measurement Start: 10/14/18 10:27 Freq: Status: Active Protocol: Activity Type Activity Date Activity User E-Sign Co-Sign Detail Recorded Client Recorded Date Recorded By Document 10/21/18 09:56 [place] [id number] 10/21/18 10:06 [place] 10/21/18 09:56 Wound Center Nurse 1 [Ulcer Assessment] 1-right dorsal foot -Current Size (cm) - Length 0.5 -Current Size (cm) - Width 0.4 -Current Size (cm) - Depth 0.2 -Total Square Cm 0.20 -Exudate Amt Small -Exudate Type Serosanguineous -Wound Margin Thickened & Rolled Under -Granulation Amt Large (67-100%) -Granulation Quality Pale,[place] -Necrosis Amt Small (1-33%) -Necrotic Tissue Type Adherent Slough -Texture (Becky-wound Skin Appearance) Assessed, Scarring -Moisture (Becky-wound Skin Appearance Assessed, ) Maceration -Color (Becky-wound Skin Appearance) Assessed -Temperature (Becky-wound Skin No Abnormality Appearance) (Pt Warm) -Tenderness on Palpation (Becky-wound No Skin Appearance) -Ulcer Cleansing Rinsed/ Irrigated with Saline -Foul Odor after Cleansing No -Anesthetic Used 5% Lidocaine Gel [Edema Assessment] -Lower Limb Edema Present NA Musculoskeletal: Tenderness - Some very slight tenderness with manipulation of ulcer site Neurological: - - Epicritic sensation grossly absent to the lower extremities Psych/Mental Status: Normal Affect, Appropriate Debridement Note Post-Debridement Measurements/Treatment WC - Nurse 2 - General Ulcer CM Notes Start: 10/14/18 10:27 Freq: Status: Active Protocol: Activity Type Activity Date Activity User E-Sign Co-Sign Detail Recorded Client Recorded Date Recorded By Document 10/14/18 10:53 AN [id number] 10/14/18 10:54 AN 10/14/18 10:53 Wound Center Nurse 2 1-right dorsal foot -Time 10:53 -Correct Patient Yes -Correct Side, Site, Position Yes -Correct Procedure Yes -Procedure Performed Yes -Type of Procedure Debridement -Clinical Debridement Subcutaneous -Post Debridement Size (cm) - Length 0.4 -Post Debridement Size (cm) - Width 0.3 -Post Debridement Size (cm) - Depth 0.2 -Total Square Cm 0.12 -Wound/Ulcer Outcome Not Healed -Ulcer Cleansing Rinsed/ Irrigated with Saline -Foul Odor after Cleansing No -Bioengineered Tissue No -Bleeding Controlled with Pressure -Offloading Yes -Type of Offloading Surgical Shoe -Treatment Response Procedure Tolerated Well Pain Scale: 0-10 Numeric Is Patient Pain Free? Yes Wound debrided: Right dorsal distal foot Laterality: Right Type of Debridement: Excisional debridement Anesthesia Used: 5% Lidocaine Gel Depth: in the subcutaneous layer Percentage of wound debrided: 100 Instrument Used: 3mm curette Tissue Removed: Adherent slough, fibrin, biofilm Severity: Fat Layer Exposed Amount of bleeding with debridement: Mild Bleeding Controlled with: Pressure Patient tolerated procedure well Assessment/Plan Assessment: Ulcer right foot with fat and tendon layer exposed. cellulitis resolving. DM with neuropathy. PVD. Lower extremity edema. Other comorbidities Plan: Patient was carefully examined and evaluated again today with a family member present in the room. Continued slow and steady improvement noted again today. A subcutaneous debridement was performed as noted in the clinical panel. Ulcer site was carefully dressed with Lotus followed by dry sterile dressing. Patient is to have the dressing changed in this manner on a daily basis. She was instructed to not soak her foot. Patient is to continue with surgical shoe to keep the ulcer site completely offloaded. She was instructed to keep any kind of pressure away from the ulcer site. Patient's last hemoglobin A1c was 10.8. The importance of tight glycemic control was discussed again today. I also recommend nutritional supplementation with a high protein diet in order to help optimize ulcer healing potential. LEAS and Venous doppler exams performed and detailed report in patient's chart. There is diminished toe brachial index noted on the right side as well as noncompressible DP artery. Patient saw Dr. Linda in [place]. Since that appointment she was referred back to his partner Dr. Fry who evaluated the patient and performed an angiogram. According to his operative report, he was able to improve blood flow through the peroneal and dorsalis pedis arteries. 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 Full reoport can be found in patient's electronic chart. Patient was educated on all signs and symptoms of local and systemic infection, and she was instructed to go to the emergency room immediately should she notice any of these before next visit. All questions were answered to the patient and her family satisfaction. Patient relates that if possible she would like to be seen every other week. We informed her that we can try this and if continued improvement is noted we can continue with this plan. At this time, we will see the patient back in office in 2 weeks to check on progress, but she is to follow back up sooner if needed before then.
[2018-11-04 08:29] VITALS: BP 131/70; PULSE 74; RESP 16; BMI 39.4
--- NOTE | 2018-11-04 08:49 | PN.PCM_ITS ---
(1) Ulcer of right foot with fat layer exposed Status: Chronic Current Visit: No Code(s): L97.512 - Non-pressure chronic ulcer of other part of right foot with fat layer exposed (2) Type 2 diabetes mellitus with diabetic polyneuropathy Status: Chronic Current Visit: No Code(s): E11.42 - Type 2 diabetes mellitus with diabetic polyneuropathy (3) PVD (peripheral vascular disease) Status: Suspected Current Visit: No Code(s): I73.9 - Peripheral vascular disease, unspecified (4) Lower extremity edema Status: Acute Current Visit: No Code(s): R60.0 - Localized edema (5) Venous insufficiency Status: Suspected Current Visit: No Code(s): I87.2 - Venous insufficiency (chronic) (peripheral) (6) Delayed wound healing Status: Acute Current Visit: No Code(s): T14.8XXD - Other injury of unspecified body region, subsequent encounter (7) Obesity (BMI 30-39.9) Status: Chronic Current Visit: No Code(s): E66.9 - Obesity, unspecified Type of Wound Date of Service: 11/04/18 Chief Complaint: right dorsal foot ulcer History of Wound: This 73-year-old diabetic female who was referred to the wound healing center for a dorsal distal right foot ulcer. Patient has been dressing the ulcer site with Lotus. Patient currently denies any feelings of nausea, vomiting, fever, chills. She has occasional mild foot pain. She had recent intervention with Dr. Fry to restore blood flow to the right foot. She denies nutrition supplementation use. She relates she had some redness occurring to the right foot when she presented to the [facility] emergency urgent center this past week. She was started on oral antibiotics again and a culture was obtained. She is amendable to have these medical records sent over. She relates the redness has resolved and she denies foot odor. This patient was seen today in courtesy for Dr. Burks. Progress of Wound: Improvement noted again today. Patient denies any feelings of nausea, vomiting, fever, chills. - Physical Exam Vital Signs Temp Pulse Resp BP 97.8 F 74 16 131/70 H 10/21/18 09:56 11/04/18 08:29 11/04/18 08:29 11/04/18 08:29 General: Alert, Oriented x3, Cooperative, No apparent distress Extremities: Capillary Refill Less than 3 Seconds, No Calf Tenderness, Diminished Peripheral Pulses, Edema - Mild lower extremity Skin: Ulcer/ Wound - Ulcer with fat layer exposed noted to the dorso distal aspect of the right foot just proximal to the second and third toes. Ulcer base is a mixture of adherent slough, fibrotic tissue, biofilm, granular tissue, and some slight surrounding hyperkeratotic tissue. Continued amount of increasing granular tissue noted. There is no purulence, no streaking cellulitis, no significant increase in warmth, no probing to bone, no tracking, and no undermining at this time. Surrounding skin is hairless and atrophic. Wound Measurements and Assessment WC - Nurse 1 - General Ulcer Measurement Start: 10/14/18 10:27 Freq: Status: Active Protocol: Activity Type Activity Date Activity User E-Sign Co-Sign Detail Recorded Client Recorded Date Recorded By Document 11/04/18 08:29 BS [id number] 11/04/18 08:36 BS 11/04/18 08:29 Wound Center Nurse 1 [Ulcer Assessment] 1-right dorsal foot -Combined with other wound No -Current Size (cm) - Length 0.1 -Current Size (cm) - Width 0.1 -Current Size (cm) - Depth 0.3 -Total Square Cm 0.01 -Photo Taken No -Temperature (Becky-wound Skin No Abnormality Appearance) (Pt Warm) -Tenderness on Palpation (Becky-wound No Skin Appearance) -Ulcer Cleansing Rinsed/ Irrigated with Saline -Foul Odor after Cleansing No -Anesthetic Used 5% Lidocaine Gel - Nurse 2 - General Ulcer CM Notes Start: 10/14/18 10:27 Freq: Status: Active Protocol: Activity Type Activity Date Activity User E-Sign Co-Sign Detail Recorded Client Recorded Date Recorded By Document 11/04/18 08:43 AN [id number] 11/04/18 08:44 AN 11/04/18 08:43 Wound Center Nurse 2 [Procedure/Treatment] -Time 08:43 -Correct Patient Yes -Correct Side, Site, Position Yes -Correct Procedure Yes -Procedure Performed Yes -Type of Procedure Debridement -Clinical Debridement Subcutaneous -Post Debridement Size (cm) - Length 0.2 -Post Debridement Size (cm) - Width 0.2 -Post Debridement Size (cm) - Depth 0.2 -Total Square Cm 0.04 -Wound/Ulcer Outcome Not Healed -Ulcer Cleansing Rinsed/ Irrigated with Saline -Foul Odor after Cleansing No -Bioengineered Tissue No -Bleeding Controlled with NA -Offloading Yes -Type of Offloading Surgical Shoe -Treatment Response Procedure Tolerated Well [See Physician Procedure note for Specifics] Pain Scale: 0-10 Numeric [Pain] -Is Patient Pain Free? Yes Musculoskeletal: Tenderness - Some very slight tenderness with manipulation of ulcer site Neurological: - - Epicritic sensation grossly absent to lower extremities Psych/Mental Status: Normal Affect, Appropriate Debridement Note Post-Debridement Measurements/Treatment WC - Nurse 2 - General Ulcer CM Notes Start: 10/14/18 10:27 Freq: Status: Active Protocol: Activity Type Activity Date Activity User E-Sign Co-Sign Detail Recorded Client Recorded Date Recorded By Document 10/14/18 10:53 AN [id number] 10/14/18 10:54 AN Document 10/21/18 17:33 AN [id number] 10/21/18 17:34 AN Document 11/04/18 08:43 AN [id number] 11/04/18 08:44 AN 10/14/18 10/21/18 11/04/18 10:53 17:33 08:43 Wound Center Nurse 2 1-right dorsal foot -Time 10:53 11:00 08:43 -Correct Patient Yes Yes Yes -Correct Side, Site, Position Yes Yes Yes -Correct Procedure Yes Yes Yes -Procedure Performed Yes Yes Yes -Type of Procedure Debridement Debridement Debridement -Clinical Debridement Subcutaneous Subcutaneous Subcutaneous -Post Debridement Size (cm) - Length 0.4 0.3 0.2 -Post Debridement Size (cm) - Width 0.3 0.3 0.2 -Post Debridement Size (cm) - Depth 0.2 0.2 0.2 -Total Square Cm 0.12 0.09 0.04 -Wound/Ulcer Outcome Not Healed Not Healed Not Healed -Ulcer Cleansing Rinsed/ Rinsed/ Rinsed/ Irrigated with Irrigated with Irrigated with Saline Saline Saline -Foul Odor after Cleansing No No No -Bioengineered Tissue No No No -Bleeding Controlled with Pressure Pressure NA -Offloading Yes Yes Yes -Type of Offloading Surgical Shoe Surgical Shoe Surgical Shoe -Treatment Response Procedure Procedure Procedure Tolerated Well Tolerated Well Tolerated Well Pain Scale: 0-10 Numeric Is Patient Pain Free? Yes Yes Yes Wound debrided: Right dorsal distal foot Laterality: Right Type of Debridement: Excisional debridement Anesthesia Used: 5% Lidocaine Gel Depth: in the subcutaneous layer Percentage of wound debrided: 100 Instrument Used: - - 1 mm curette Tissue Removed: Adherent slough, fibrin, biofilm Severity: Fat Layer Exposed Amount of bleeding with debridement: Mild Bleeding Controlled with: Pressure Patient tolerated procedure well Assessment/Plan Assessment: Ulcer right foot with fat and tendon layer exposed. cellulitis resolving. DM with neuropathy. PVD. Lower extremity edema. Other comorbidities Plan: Patient was carefully examined and evaluated again today with a family member present in the room. Continued improvement. A subcutaneous debridement was performed as noted in the clinical panel. Ulcer site was carefully dressed with Lotus followed by dry sterile dressing. Patient is to have the dressing changed in this manner on a daily basis. She was instructed to not soak her foot. Patient is to continue with surgical shoe to keep the ulcer site completely offloaded. She was instructed to keep any kind of pressure away from the ulcer site. Patient's last hemoglobin A1c was 10.8. The importance of tight glycemic control was discussed again today. I also recommend nutritional supplementation with a high protein diet in order to help optimize ulcer healing potential. LEAS and Venous doppler exams performed and detailed report in patient's chart. There is diminished toe brachial index noted on the right side as well as noncompressible DP artery. Patient saw Dr. Linda in [place]. Since that appointment she was referred back to his partner Dr. Fry who evaluated the patient and performed an angiogram. According to his operative report, he was able to improve blood flow through the peroneal and dorsalis pedis arteries. 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 Full reoport can be found in patient's electronic chart. Patient was educated on all signs and symptoms of local and systemic infection, and she was instructed to go to the emergency room immediately should she notice any of these before next visit. All questions were answered to the patient and her family satisfaction. Patient relates that if possible she would like to be seen every other week. We informed her that we can try this and if continued improvement is noted we can continue with this plan. At this time, we will see the patient back in office in 2 weeks to check on progress, but she is to follow back up sooner if needed before then.
== END 2018-11-08 23:59 ==
LOC: WC 08:00
PROVIDERS: Family Provider Family Medicine; PCP Family Medicine; Referring Provider Podiatrist; Visit Provider Podiatrist
DX: E11.621 Type 2 diabetes mellitus with foot ulcer (principal); E11.42 Type 2 diabetes mellitus with diabetic polyneuropathy; E11.51 Type 2 diabetes mellitus with diabetic peripheral angiopathy without gangrene; R60.0 Localized edema; I87.2 Venous insufficiency (chronic) (peripheral); L97.512 Non-pressure chronic ulcer of other part of right foot with fat layer exposed; E66.9 Obesity, unspecified; Z71.3 Dietary counseling and surveillance; Z68.39 Body mass index [BMI] 39.0-39.9, adult
CPT/HCPCS: 11042

== ENCOUNTER 2018-12-09 09:00 | Outpatient (RCR) | payer OTHER, SELFPAY ==
[2018-11-09 00:44] VITALS: BP 131/70; PULSE 74; RESP 16; TEMP 36.6
--- NOTE | 2018-11-18 08:23 | PCM.WC.PN ---
(1) Ulcer of right foot with fat layer exposed Status: Chronic Code(s): L97.512 - Non-pressure chronic ulcer of other part of right foot with fat layer exposed (2) Type 2 diabetes mellitus with diabetic polyneuropathy Status: Chronic Code(s): E11.42 - Type 2 diabetes mellitus with diabetic polyneuropathy (3) PVD (peripheral vascular disease) Status: Suspected Code(s): I73.9 - Peripheral vascular disease, unspecified (4) Lower extremity edema Status: Acute Code(s): R60.0 - Localized edema (5) Venous insufficiency Status: Suspected Code(s): I87.2 - Venous insufficiency (chronic) (peripheral) (6) Delayed wound healing Status: Acute Code(s): T14.8XXD - Other injury of unspecified body region, subsequent encounter (7) Obesity (BMI 30-39.9) Status: Chronic Code(s): E66.9 - Obesity, unspecified Type of Wound Date of Service: 11/18/18 Chief Complaint: right dorsal foot ulcer History of Wound: This 73-year-old diabetic female who was referred to the wound healing center for a dorsal distal right foot ulcer. Patient has been dressing the ulcer site with Lotus. Patient currently denies any feelings of nausea, vomiting, fever, chills. She has occasional mild foot pain. She had recent intervention with Dr. Fry to restore blood flow to the right foot. She denies nutrition supplementation use. She relates she had some redness occurring to the right foot when she presented to the [facility] emergency urgent center this past week. She was started on oral antibiotics again and a culture was obtained. She is amendable to have these medical records sent over. She relates the redness has resolved and she denies foot odor. This patient was seen today in courtesy for Dr. Burks. Progress of Wound: Improvement noted again today. Site almost completely healed. Patient denies any feelings of nausea, vomiting, fever, chills. - Physical Exam Vital Signs Temp Pulse Resp BP 97.8 F 74 16 131/70 H 11/09/18 00:44 11/09/18 00:44 11/09/18 00:44 11/09/18 00:44 General: Alert, Oriented x3, Cooperative, No apparent distress Extremities: Capillary Refill Less than 3 Seconds, No Calf Tenderness, Diminished Peripheral Pulses, Edema - Mild lower extremity Skin: Ulcer/ Wound - Ulcer with fat layer exposed noted to the dorso distal aspect of the right foot just proximal to the second and third toes. Ulcer base is granular with only a very small opening still appreciated. Almost completely healed today. There is no purulence, no streaking cellulitis, no significant increase in warmth, no probing to bone, no tracking, and no undermining at this time. Surrounding skin is hairless and atrophic. Musculoskeletal: Tenderness - Some very slight tenderness with manipulation of ulcer site Neurological: - - Epicritic sensation grossly absent to lower extremities Psych/Mental Status: Normal Affect, Appropriate Debridement Note No debridement was completed today Assessment/Plan Assessment: Ulcer right foot with fat and tendon layer exposed. cellulitis resolving. DM with neuropathy. PVD. Lower extremity edema. Other comorbidities Plan: Patient was carefully examined and evaluated again today with a family member present in the room. Continued improvement. Ulcer site almost healed today. No debridement was performed in clinic today. Ulcer site was carefully dressed with Lotus followed by dry sterile dressing. Patient is to have the dressing changed in this manner on a daily basis. She was instructed to not soak her foot. Patient is to continue with surgical shoe to keep the ulcer site completely offloaded. She was instructed to keep any kind of pressure away from the ulcer site. Patient's last hemoglobin A1c was 10.8. The importance of tight glycemic control was discussed again today. I also recommend nutritional supplementation with a high protein diet in order to help optimize ulcer healing potential. LEAS and Venous doppler exams performed and detailed report in patient's chart. There is diminished toe brachial index noted on the right side as well as noncompressible DP artery. Patient saw Dr. Linda in [place]. Since that appointment she was referred back to his partner Dr. Fry who evaluated the patient and performed an angiogram. According to his operative report, he was able to improve blood flow through the peroneal and dorsalis pedis arteries. 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 Full reoport can be found in patient's electronic chart. Patient was educated on all signs and symptoms of local and systemic infection, and she was instructed to go to the emergency room immediately should she notice any of these before next visit. All questions were answered to the patient and her family satisfaction. Patient relates that if possible she would like to be seen every other week. We informed her that we can try this and if continued improvement is noted we can continue with this plan. At this time, we will see the patient back in office in 3 weeks to check on progress, but she is to follow back up sooner if needed before then.
[2018-12-09 09:12] VITALS: BP 163/87; PULSE 82; RESP 16; TEMP 35.9; BMI 39.4
--- NOTE | 2018-12-09 10:47 | PCM.WC.PN ---
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 Status: Acute Current Visit: Yes Code(s): E11.621 - Type 2 diabetes mellitus with foot ulcer; L97.522 - Non-pressure chronic ulcer of other part of left foot with fat layer exposed (2) Ulcer of right foot with fat layer exposed Status: Chronic Current Visit: No Code(s): L97.512 - Non-pressure chronic ulcer of other part of right foot with fat layer exposed (3) Type 2 diabetes mellitus with diabetic polyneuropathy Status: Chronic Current Visit: No Code(s): E11.42 - Type 2 diabetes mellitus with diabetic polyneuropathy (4) PVD (peripheral vascular disease) Status: Suspected Current Visit: No Code(s): I73.9 - Peripheral vascular disease, unspecified (5) Lower extremity edema Status: Acute Current Visit: No Code(s): R60.0 - Localized edema (6) Venous insufficiency Status: Suspected Current Visit: No Code(s): I87.2 - Venous insufficiency (chronic) (peripheral) (7) Delayed wound healing Status: Acute Current Visit: No Code(s): T14.8XXD - Other injury of unspecified body region, subsequent encounter (8) Obesity (BMI 30-39.9) Status: Chronic Current Visit: No Code(s): E66.9 - Obesity, unspecified Type of Wound Date of Service: 12/09/18 Chief Complaint: right dorsal foot ulcer History of Wound: This 73-year-old diabetic female who was referred to the wound healing center for a dorsal distal right foot ulcer. Patient has been dressing the ulcer site with Lotus. Patient currently denies any feelings of nausea, vomiting, fever, chills. She has occasional mild foot pain. She had recent intervention with Dr. Fry to restore blood flow to the right foot. She denies nutrition supplementation use. She relates she had some redness occurring to the right foot when she presented to the [facility] emergency urgent center this past week. She was started on oral antibiotics again and a culture was obtained. She is amendable to have these medical records sent over. She relates the redness has resolved and she denies foot odor. This patient was seen today in courtesy for Dr. Burks. Progress of Wound: Patient's ulcer to dorsal right foot is healed today. Patient has a new ulcer that she just noticed yesterday on the bottom of her left foot. Patient is not sure how this happened and denies any injury or trauma to the area. She denies any pus to the area or any streaking or surrounding redness. Patient denies any feelings of nausea, vomiting, fever, chills. - Physical Exam Vital Signs Temp Pulse Resp BP 96.6 F L 82 16 163/87 H 12/09/18 09:12 12/09/18 09:12 12/09/18 09:12 12/09/18 09:12 General: Alert, Oriented x3, Cooperative, No apparent distress Extremities: Capillary Refill Less than 3 Seconds, No Calf Tenderness, Diminished Peripheral Pulses, Edema - Mild lower extremity edema Skin: Ulcer/ Wound - Ulcer to the dorso distal aspect of the right foot just proximal to the second and third toes is healed today with no signs of surrounding infection noted. A new ulcer is open to the plantar aspect of the left distal plantar foot. The base is a mixture of devitalized subcutaneous tissue, adherent slough, fibrin, biofilm, granular tissue, and some surrounding hyperkeratotic tissue. There is no purulence, no streaking cellulitis, no significant increase in warmth, no probing to bone, no tracking, and no undermining at this time. Surrounding skin is hairless and atrophic. Wound Measurements and Assessment WC - Nurse 1 - General Ulcer Measurement Start: 11/18/18 08:36 Freq: Status: Active Protocol: Activity Type Activity Date Activity User E-Sign Co-Sign Detail Recorded Client Recorded Date Recorded By Document 12/09/18 09:12 JF [id number] 12/09/18 09:15 EVAN 12/09/18 09:12 Wound Center Nurse 1 [Ulcer Assessment] 2-left plantar foot -Combined with other wound No -Current Size (cm) - Length 0.2 -Current Size (cm) - Width 0.2 -Current Size (cm) - Depth 0.2 -Total Square Cm 0.04 -Photo Taken Yes -Epithelialization Small 1-33% -Tunneling No -Undermining/Tunneling No -Circular Undermining No -Exudate Amt Small -Exudate Type Serosanguineous -Wound Margin Flat & Intact -Granulation Amt Large (67-100%) -Granulation Quality Pale -Slough/Fibrin No -Structure Exposed N/A -Texture (Becky-wound Skin Appearance) Assessed,Callus ,Fluctuance, Localized Edema -Moisture (Becky-wound Skin Appearance Assessed,Dry/ ) Scaly -Color (Bekcy-wound Skin Appearance) Assessed, Erythema -Temperature (Becky-wound Skin No Abnormality Appearance) (Pt Warm) -Tenderness on Palpation (Becky-wound No Skin Appearance) -Ulcer Cleansing Rinsed/ Irrigated with Saline -Foul Odor after Cleansing No -Anesthetic Used 4% Lidocaine Solution 1-right dorsal foot -Combined with other wound No -Current Size (cm) - Length 0 -Current Size (cm) - Width 0 -Current Size (cm) - Depth 0 -Total Square Cm 0 -Photo Taken Yes [Edema Assessment] -Lower Limb Edema Present Yes -Right Calf (cm) 43.3 -Right Ankle (cm) 20.8 -Left Calf (cm) 44.2 -Left Ankle (cm) 22.0 CRISTOFER - Nurse 2 - General Ulcer CM Notes Start: 11/18/18 08:36 Freq: Status: Active Protocol: Activity Type Activity Date Activity User E-Sign Co-Sign Detail Recorded Client Recorded Date Recorded By Document 12/09/18 09:27 AN [id number] 12/09/18 09:36 AN 12/09/18 09:27 Wound Center Nurse 2 [Procedure/Treatment] 2-left plantar foot -Time 09:35 -Correct Patient Yes -Correct Side, Site, Position Yes -Correct Procedure Yes -Procedure Performed Yes -Type of Procedure Debridement -Clinical Debridement Subcutaneous -Post Debridement Size (cm) - Length 3.3 -Post Debridement Size (cm) - Width 0.7 -Post Debridement Size (cm) - Depth 0.2 -Total Square Cm 2.31 -Wound/Ulcer Outcome Not Healed -Ulcer Cleansing Rinsed/ Irrigated with Saline -Foul Odor after Cleansing No -Bioengineered Tissue No -Bleeding Controlled with Pressure -Offloading Yes -Type of Offloading Surgical Shoe -Treatment Response Procedure Tolerated Well [See Physician Procedure note for Specifics] Pain Scale: 0-10 Numeric [Pain] -Is Patient Pain Free? Yes Musculoskeletal: - - No tenderness with left ulcer site manipulation Neurological: - - Epicritic sensation grossly absent to the lower extremities Psych/Mental Status: Normal Affect, Appropriate Debridement Note Post-Debridement Measurements/Treatment WC - Nurse 2 - General Ulcer CM Notes Start: 11/18/18 08:36 Freq: Status: Active Protocol: Activity Type Activity Date Activity User E-Sign Co-Sign Detail Recorded Client Recorded Date Recorded By Document 12/09/18 09:27 AN [id number] 12/09/18 09:36 AN 12/09/18 09:27 Wound Center Nurse 2 2-left plantar foot -Time 09:35 -Correct Patient Yes -Correct Side, Site, Position Yes -Correct Procedure Yes -Procedure Performed Yes -Type of Procedure Debridement -Clinical Debridement Subcutaneous -Post Debridement Size (cm) - Length 3.3 -Post Debridement Size (cm) - Width 0.7 -Post Debridement Size (cm) - Depth 0.2 -Total Square Cm 2.31 -Wound/Ulcer Outcome Not Healed -Ulcer Cleansing Rinsed/ Irrigated with Saline -Foul Odor after Cleansing No -Bioengineered Tissue No -Bleeding Controlled with Pressure -Offloading Yes -Type of Offloading Surgical Shoe -Treatment Response Procedure Tolerated Well Pain Scale: 0-10 Numeric Is Patient Pain Free? Yes Wound debrided: Left distal plantar foot Laterality: Left Type of Debridement: Excisional debridement Anesthesia Used: 5% Lidocaine Gel Depth: in the subcutaneous layer Percentage of wound debrided: 100 Instrument Used: 3mm curette, #15 blade Tissue Removed: Devitalized subcutaneous tissue, adherent slough, fibrin, biofilm Severity: Fat Layer Exposed Amount of bleeding with debridement: Mild Bleeding Controlled with: Pressure Patient tolerated procedure well Assessment/Plan Active Problems (Last Reviewed 08/18/18 @ 14:26 by Keshav Lambert DO) Diabetic ulcer of left foot with fat layer exposed (Acute) Assessment: Ulcer left foot with fat layer exposed. DM with neuropathy. PVD. Lower extremity edema. Other comorbidities Plan: Patient was carefully examined and evaluated again today with a family member present in the room. Ulcer to the dorsal right foot is healed today. Patient has a new ulcer to the distal plantar aspect of the left foot. A subcutaneous debridement was performed in this area as noted in the clinical panel. The ulcer site was then carefully cleansed and then cultures were taken and sent for aerobic, anaerobic, and MRSA PCR evaluation. Patient was started on a 10-day course of Bactrim DS. Ulcer site was carefully dressed with Aquacel Ag followed by dry sterile dressing. Patient is to have the dressing changed in this manner on a daily basis. She was instructed to not soak her foot. Patient is to offload the left plantar foot completely with the assistance of wheelchair. If she has to transfer for a short distance the patient is able to place weight to her left heel. She was instructed to keep any kind of pressure away from the ulcer site. The importance of tight glycemic control was discussed again today. I also recommend nutritional supplementation with a high protein diet in order to help optimize ulcer healing potential. LEAS and Venous doppler exams performed and detailed report in patient's chart. There is diminished toe brachial index noted on the right side as well as noncompressible DP artery. Patient saw Dr. Linda in [place]. Since that appointment she was referred back to his partner Dr. Fry who evaluated the patient and performed an angiogram. According to his operative report, he was able to improve blood flow through the peroneal and dorsalis pedis arteries. 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 Full reoport can be found in patient's electronic chart. Patient was educated on all signs and symptoms of local and systemic infection, and she was instructed to go to the emergency room immediately should she notice any of these before next visit. All questions were answered to the patient and her family satisfaction. Patient relates that if possible she would like to be seen every other week. We informed her that we can try this and if continued improvement is noted we can continue with this plan. At this time, we will see the patient back in office in 1 week to check on progress, but she is to follow back up sooner if needed before then.
[2018-12-09 11:35] LABS: M R Staph aureus DNA By PCR Negative (Negative); Probe Check PASS; Specimen Processing Control PASS; Staph aureus DNA By PCR POSITIVE (Negative)
== END 2018-12-09 23:59 ==
LOC: WC 09:00
PROVIDERS: Family Provider Family Medicine; PCP Family Medicine; Referring Provider Podiatrist; Visit Provider Podiatrist
DX: E11.621 Type 2 diabetes mellitus with foot ulcer (principal); E11.42 Type 2 diabetes mellitus with diabetic polyneuropathy; E11.51 Type 2 diabetes mellitus with diabetic peripheral angiopathy without gangrene; R60.0 Localized edema; L97.512 Non-pressure chronic ulcer of other part of right foot with fat layer exposed; E66.9 Obesity, unspecified; Z71.3 Dietary counseling and surveillance; Z68.39 Body mass index [BMI] 39.0-39.9, adult; I87.2 Venous insufficiency (chronic) (peripheral)
CPT/HCPCS: 11042; 87070; 87075; 87077; 87186; 87205; 87640; 99212; G0463

== ENCOUNTER 2018-12-30 09:45 | Outpatient (RCR) | payer OTHER, SELFPAY ==
[2018-12-10 00:45] VITALS: BP 163/87; PULSE 82; RESP 16; TEMP 35.9
[2018-12-16 10:16] VITALS: BP 153/81; PULSE 86; RESP 16; TEMP 36.1; BMI 39.4
--- NOTE | 2018-12-16 10:34 | PN.PCM_ITS ---
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 Status: Acute Current Visit: No Code(s): E11.621 - Type 2 diabetes mellitus with foot ulcer; L97.522 - Non-pressure chronic ulcer of other part of left foot with fat layer exposed (2) Type 2 diabetes mellitus with diabetic polyneuropathy Status: Chronic Current Visit: No Code(s): E11.42 - Type 2 diabetes mellitus with diabetic polyneuropathy (3) PVD (peripheral vascular disease) Status: Suspected Current Visit: No Code(s): I73.9 - Peripheral vascular disease, unspecified (4) Lower extremity edema Status: Acute Current Visit: No Code(s): R60.0 - Localized edema (5) Venous insufficiency Status: Suspected Current Visit: No Code(s): I87.2 - Venous insufficiency (chronic) (peripheral) (6) Delayed wound healing Status: Acute Current Visit: No Code(s): T14.8XXD - Other injury of unspecified body region, subsequent encounter (7) Obesity (BMI 30-39.9) Status: Chronic Current Visit: No Code(s): E66.9 - Obesity, unspecified Type of Wound Date of Service: 12/16/18 Chief Complaint: right dorsal foot ulcer History of Wound: This 73-year-old diabetic female who was referred to the wound healing center for a dorsal distal right foot ulcer. Patient has been dressing the ulcer site with Lotus. Patient currently denies any feelings of nausea, vomiting, fever, chills. She has occasional mild foot pain. She had recent intervention with Dr. Fry to restore blood flow to the right foot. She denies nutrition supplementation use. She relates she had some redness occurring to the right foot when she presented to the [facility] emergency urgent center this past week. She was started on oral antibiotics again and a culture was obtained. She is amendable to have these medical records sent over. She relates the redness has resolved and she denies foot odor. This patient was seen today in courtesy for Dr. Burks. Progress of Wound: Patient presents for follow up of left plantar foor ulcer. Patient denies any feelings of nausea, vomiting, fever, chills. - Physical Exam Vital Signs Temp Pulse Resp BP 96.9 F L 86 16 153/81 H 12/16/18 10:16 12/16/18 10:16 12/16/18 10:16 12/16/18 10:16 General: Alert, Oriented x3, Cooperative, No apparent distress Extremities: Capillary Refill Less than 3 Seconds, No Calf Tenderness, Diminished Peripheral Pulses, Edema - Mild lower extremity edema Skin: Ulcer/ Wound - Ulcer to plantar aspect of the left distal plantar foot. The base is a mixture of devitalized subcutaneous tissue, adherent slough, fibrin, biofilm, granular tissue, and some surrounding hyperkeratotic tissue. There is no purulence, no streaking cellulitis, no significant increase in warmth, no probing to bone, no tracking, and no undermining at this time. Surrounding skin is hairless and atrophic. Wound Measurements and Assessment WC - Nurse 1 - General Ulcer Measurement Start: 12/16/18 10:16 Freq: Status: Active Protocol: Activity Type Activity Date Activity User E-Sign Co-Sign Detail Recorded Client Recorded Date Recorded By Document 12/16/18 10:16 [id number] 12/16/18 10:18 12/16/18 10:16 Wound Center Nurse 1 [Ulcer Assessment] 2-left plantar foot -Combined with other wound No -Current Size (cm) - Length 0.6 -Current Size (cm) - Width 0.1 -Current Size (cm) - Depth 0.2 -Total Square Cm 0.06 -Photo Taken No -Epithelialization None Present -Tunneling No -Undermining/Tunneling No -Circular Undermining No -Exudate Amt Small -Exudate Type Yellow/Green -Wound Margin Distinct, Outline Attached -Granulation Amt Large (67-100%) -Granulation Quality Pale -Slough/Fibrin Yes -Necrosis Amt None Present (0 %) -Necrotic Tissue Type Adherent Slough -Texture (Becky-wound Skin Appearance) Callus -Moisture (Becky-wound Skin Appearance No Abnormality, ) Assessed -Color (Becky-wound Skin Appearance) No Abnormality, Assessed -Temperature (Becky-wound Skin No Abnormality Appearance) (Pt Warm) -Tenderness on Palpation (Becky-wound No Skin Appearance) -Ulcer Cleansing Rinsed/ Irrigated with Saline -Foul Odor after Cleansing No -Anesthetic Used 4% Lidocaine Solution [Edema Assessment] -Lower Limb Edema Present NA Musculoskeletal: - - No tenderness with left ulcer site manipulation Neurological: - - Epicritic sensation grossly absent to the lower extremities Psych/Mental Status: Normal Affect, Appropriate Debridement Note Wound debrided: Left distal plantar foot Laterality: Left Type of Debridement: Excisional debridement Anesthesia Used: 5% Lidocaine Gel Depth: in the subcutaneous layer Percentage of wound debrided: 100 Instrument Used: #15 blade Tissue Removed: Devitalized subcutaneous tissue, adherent slough, fibrin, biofilm Severity: Fat Layer Exposed Amount of bleeding with debridement: Mild Bleeding Controlled with: Pressure Patient tolerated procedure well Assessment/Plan Assessment: Ulcer left foot with fat layer exposed. DM with neuropathy. PVD. Lower extremity edema. Other comorbidities Plan: Patient was carefully examined and evaluated again today with a family member present in the room. Ulcer shows great improvement over last week. A subcutaneous debridement was performed in this area as noted in the clinical panel. She is to finish Bactrim Rx. Ulcer site was carefully dressed with Aquacel Ag followed by dry sterile dressing. Patient is to have the dressing changed in this manner on a daily basis. She was instructed to not soak her foot. Patient is to offload the left plantar foot completely with the assistance of wheelchair. If she has to transfer for a short distance the patient is able to place weight to her left heel. She was instructed to keep any kind of pressure away from the ulcer site. The importance of tight glycemic control was discussed again today. I also recommend nutritional supplementation with a high protein diet in order to help optimize ulcer healing potential. LEAS and Venous doppler exams performed and detailed report in patient's chart. There is diminished toe brachial index noted on the right side as well as noncompressible DP artery. Patient saw Dr. Linda in [place]. Since that appointment she was referred back to his partner Dr. Fry who evaluated the patient and performed an angiogram. According to his operative report, he was able to improve blood flow through the peroneal and dorsalis pedis arteries. 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 Full reoport can be found in patient's electronic chart. Patient was educated on all signs and symptoms of local and systemic infection, and she was instructed to go to the emergency room immediately should she notice any of these before next visit. All questions were answered to the patient and her family satisfaction. Patient relates that if possible she would like to be seen every other week. We informed her that we can try this and if continued improvement is noted we can continue with this plan. At this time, we will see the patient back in office in 1 week to check on progress, but she is to follow back up sooner if needed before then.
[2018-12-23 09:31] VITALS: BP 150/75; PULSE 88; RESP 22; TEMP 36.9; BMI 39.4
--- NOTE | 2018-12-23 10:49 | PCM.WC.PN ---
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 Status: Acute Current Visit: No Code(s): E11.621 - Type 2 diabetes mellitus with foot ulcer; L97.522 - Non-pressure chronic ulcer of other part of left foot with fat layer exposed (2) Type 2 diabetes mellitus with diabetic polyneuropathy Status: Chronic Current Visit: No Code(s): E11.42 - Type 2 diabetes mellitus with diabetic polyneuropathy (3) PVD (peripheral vascular disease) Status: Suspected Current Visit: No Code(s): I73.9 - Peripheral vascular disease, unspecified (4) Lower extremity edema Status: Acute Current Visit: No Code(s): R60.0 - Localized edema (5) Venous insufficiency Status: Suspected Current Visit: No Code(s): I87.2 - Venous insufficiency (chronic) (peripheral) (6) Delayed wound healing Status: Acute Current Visit: No Code(s): T14.8XXD - Other injury of unspecified body region, subsequent encounter (7) Obesity (BMI 30-39.9) Status: Chronic Current Visit: No Code(s): E66.9 - Obesity, unspecified Type of Wound Date of Service: 12/23/18 Chief Complaint: right dorsal foot ulcer History of Wound: This 73-year-old diabetic female who was referred to the wound healing center for a dorsal distal right foot ulcer. Patient has been dressing the ulcer site with Lotus. Patient currently denies any feelings of nausea, vomiting, fever, chills. She has occasional mild foot pain. She had recent intervention with Dr. Fry to restore blood flow to the right foot. She denies nutrition supplementation use. She relates she had some redness occurring to the right foot when she presented to the [facility] emergency urgent center this past week. She was started on oral antibiotics again and a culture was obtained. She is amendable to have these medical records sent over. She relates the redness has resolved and she denies foot odor. This patient was seen today in courtesy for Dr. Burks. Progress of Wound: Continued improvement noted. Patient denies any feelings of nausea, vomiting, fever, chills. - Physical Exam Vital Signs Temp Pulse Resp BP 98.4 F 88 22 H 150/75 H 12/23/18 09:31 12/23/18 09:31 12/23/18 09:31 12/23/18 09:31 General: Alert, Oriented x3, Cooperative, No apparent distress Extremities: Capillary Refill Less than 3 Seconds, No Calf Tenderness, Diminished Peripheral Pulses, Edema - Mild lower extremity edema Skin: Ulcer/ Wound - Ulcer to plantar aspect of the left distal plantar foot. Continued improvement noted. The base is a mixture of devitalized subcutaneous tissue, adherent slough, fibrin, biofilm, granular tissue, and some surrounding hyperkeratotic tissue. There is no purulence, no streaking cellulitis, no significant increase in warmth, no probing to bone, no tracking, and no undermining at this time. Surrounding skin is hairless and atrophic. Wound Measurements and Assessment WC - Nurse 1 - General Ulcer Measurement Start: 12/16/18 10:16 Freq: Status: Active Protocol: Activity Type Activity Date Activity User E-Sign Co-Sign Detail Recorded Client Recorded Date Recorded By Document 12/23/18 09:31 DL [id number] 12/23/18 09:37 DL 12/23/18 09:31 Wound Center Nurse 1 [Ulcer Assessment] 2-left plantar foot -Current Size (cm) - Length 0.2 -Current Size (cm) - Width 0.2 -Current Size (cm) - Depth 0.2 -Total Square Cm 0.04 -Photo Taken No -Tunneling Position (O'clock) 12 -Tunneling Distance (cm) 0.4 -Exudate Amt None Present -Wound Margin Thickened -Granulation Amt Small (1-33%) -Granulation Quality [place] -Necrosis Amt Small (1-33%) -Necrotic Tissue Type Adherent Slough -Structure Exposed N/A -Texture (Becky-wound Skin Appearance) Scarring -Moisture (Becky-wound Skin Appearance Dry/Scaly ) -Color (Becky-wound Skin Appearance) No Abnormality -Temperature (Becky-wound Skin No Abnormality Appearance) (Pt Warm) -Tenderness on Palpation (Becky-wound No Skin Appearance) -Ulcer Cleansing Rinsed/ Irrigated with Saline -Foul Odor after Cleansing No -Anesthetic Used 5% Lidocaine Gel Musculoskeletal: - - No tenderness with ulcer site manipulation Neurological: - - Epicritic sensation grossly absent to the lower extremities Psych/Mental Status: Normal Affect, Appropriate Debridement Note Post-Debridement Measurements/Treatment WC - Nurse 2 - General Ulcer CM Notes Start: 12/16/18 10:16 Freq: Status: Active Protocol: Activity Type Activity Date Activity User E-Sign Co-Sign Detail Recorded Client Recorded Date Recorded By Document 12/16/18 10:28 [id number] 12/16/18 10:34 12/16/18 10:28 Wound Center Nurse 2 2-left plantar foot -Time 10:29 -Correct Patient Yes -Correct Side, Site, Position Yes -Correct Procedure Yes -Procedure Performed Yes -Type of Procedure Debridement -Clinical Debridement Subcutaneous -Post Debridement Size (cm) - Length 1.2 -Post Debridement Size (cm) - Width 0.4 -Post Debridement Size (cm) - Depth 0.2 -Total Square Cm 0.48 -Wound/Ulcer Outcome Not Healed -Ulcer Cleansing Rinsed/ Irrigated with Saline -Foul Odor after Cleansing No -Bioengineered Tissue No -Bleeding Controlled with NA -Offloading Yes -Treatment Response Procedure Tolerated Well Pain Scale: 0-10 Numeric Is Patient Pain Free? Yes Wound debrided: Left distal plantar foot Laterality: Left Type of Debridement: Excisional debridement Anesthesia Used: 5% Lidocaine Gel Depth: in the subcutaneous layer Percentage of wound debrided: 100 Instrument Used: #15 blade Tissue Removed: Devitalized subcutaneous tissue, adherent slough, fibrin Severity: Fat Layer Exposed Amount of bleeding with debridement: Mild Bleeding Controlled with: Pressure Patient tolerated procedure well Assessment/Plan Assessment: Ulcer left foot with fat layer exposed. DM with neuropathy. PVD. Lower extremity edema. Other comorbidities Plan: Patient was carefully examined and evaluated again today with a family member present in the room. Continued improvement again noted. A subcutaneous debridement was performed as noted in the clinical panel. Ulcer site was carefully dressed with Aquacel Ag followed by dry sterile dressing. Patient is to have the dressing changed in this manner on a daily basis. She was instructed to not soak her foot. Patient is to offload the left plantar foot completely with the assistance of wheelchair. If she has to transfer for a short distance the patient is able to place weight to her left heel. She was instructed to keep any kind of pressure away from the ulcer site. The importance of tight glycemic control was discussed again today. I also recommend nutritional supplementation with a high protein diet in order to help optimize ulcer healing potential. LEAS and Venous doppler exams performed and detailed report in patient's chart. There is diminished toe brachial index noted on the right side as well as noncompressible DP artery. Patient saw Dr. Linda in [place]. Since that appointment she was referred back to his partner Dr. Fry who evaluated the patient and performed an angiogram. According to his operative report, he was able to improve blood flow through the peroneal and dorsalis pedis arteries. 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 Full reoport can be found in patient's electronic chart. Patient was educated on all signs and symptoms of local and systemic infection, and she was instructed to go to the emergency room immediately should she notice any of these before next visit. All questions were answered to the patient and her family satisfaction. Patient relates that if possible she would like to be seen every other week. We informed her that we can try this and if continued improvement is noted we can continue with this plan. At this time, we will see the patient back in office in 1 week to check on progress, but she is to follow back up sooner if needed before then.
[2018-12-30 10:00] VITALS: BP 156/69; PULSE 75; RESP 14; TEMP 36.2; BMI 39.4
--- NOTE | 2018-12-30 10:21 | PCM.WC.PN ---
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 Status: Acute Current Visit: No Code(s): E11.621 - Type 2 diabetes mellitus with foot ulcer; L97.522 - Non-pressure chronic ulcer of other part of left foot with fat layer exposed (2) Type 2 diabetes mellitus with diabetic polyneuropathy Status: Chronic Current Visit: No Code(s): E11.42 - Type 2 diabetes mellitus with diabetic polyneuropathy (3) PVD (peripheral vascular disease) Status: Suspected Current Visit: No Code(s): I73.9 - Peripheral vascular disease, unspecified (4) Lower extremity edema Status: Acute Current Visit: No Code(s): R60.0 - Localized edema (5) Venous insufficiency Status: Suspected Current Visit: No Code(s): I87.2 - Venous insufficiency (chronic) (peripheral) (6) Delayed wound healing Status: Acute Current Visit: No Code(s): T14.8XXD - Other injury of unspecified body region, subsequent encounter (7) Obesity (BMI 30-39.9) Status: Chronic Current Visit: No Code(s): E66.9 - Obesity, unspecified Type of Wound Date of Service: 12/30/18 Chief Complaint: right dorsal foot ulcer History of Wound: This 73-year-old diabetic female who was referred to the wound healing center for a dorsal distal right foot ulcer. Patient has been dressing the ulcer site with Lotus. Patient currently denies any feelings of nausea, vomiting, fever, chills. She has occasional mild foot pain. She had recent intervention with Dr. Fry to restore blood flow to the right foot. She denies nutrition supplementation use. She relates she had some redness occurring to the right foot when she presented to the [facility] emergency urgent center this past week. She was started on oral antibiotics again and a culture was obtained. She is amendable to have these medical records sent over. She relates the redness has resolved and she denies foot odor. This patient was seen today in courtesy for Dr. Burks. Progress of Wound: Steady improvement appreciated. Patient denies any feelings of nausea, vomiting, fever, chills. - Physical Exam Vital Signs Temp Pulse Resp BP 97.1 F L 75 14 156/69 H 12/30/18 10:00 12/30/18 10:00 12/30/18 10:00 12/30/18 10:00 General: Alert, Oriented x3, Cooperative, No apparent distress Extremities: Capillary Refill Less than 3 Seconds, No Calf Tenderness, Diminished Peripheral Pulses, Edema - Mild lower extremity edema Skin: Ulcer/ Wound - Ulcer to plantar aspect of the left distal plantar foot. Site continues to improve. The base is a mixture of devitalized subcutaneous tissue, adherent slough, fibrin, increasing granular tissue, and some surrounding hyperkeratotic tissue. There is no purulence, no streaking cellulitis, no significant increase in warmth, no probing to bone, no tracking, and no undermining at this time. Surrounding skin is hairless and atrophic. Wound Measurements and Assessment WC - Nurse 1 - General Ulcer Measurement Start: 12/16/18 10:16 Freq: Status: Active Protocol: Activity Type Activity Date Activity User E-Sign Co-Sign Detail Recorded Client Recorded Date Recorded By Document 12/30/18 10:00 MARTHA [id number] 12/30/18 10:03 MARTHA 12/30/18 10:00 Wound Center Nurse 1 [Ulcer Assessment] 2-left plantar foot -Combined with other wound No -Current Size (cm) - Length 0.1 -Current Size (cm) - Width 0.1 -Current Size (cm) - Depth 0.1 -Total Square Cm 0.01 -Date of Last Picture (Recall this 12/30/18 field) -Photo Taken Yes -Epithelialization Large 67-100% -Tunneling No -Undermining/Tunneling No -Circular Undermining No -Anesthetic Used 4% Lidocaine Solution [Edema Assessment] -Lower Limb Edema Present NA - Nurse 2 - General Ulcer CM Notes Start: 12/16/18 10:16 Freq: Status: Active Protocol: Activity Type Activity Date Activity User E-Sign Co-Sign Detail Recorded Client Recorded Date Recorded By Document 12/29/18 13:50 [id number] 12/29/18 13:52 12/29/18 13:50 Wound Center Nurse 2 [Procedure/Treatment] 2-left plantar foot -Time 10:05 -Correct Patient Yes -Correct Side, Site, Position Yes -Procedure Performed Yes -Type of Procedure Debridement -Clinical Debridement Subcutaneous -Post Debridement Size (cm) - Length 0.6 -Post Debridement Size (cm) - Width 0.2 -Post Debridement Size (cm) - Depth 0.2 -Total Square Cm 0.12 -Wound/Ulcer Outcome Not Healed -Ulcer Cleansing Rinsed/ Irrigated with Saline -Foul Odor after Cleansing No -Bioengineered Tissue No -Bleeding Controlled with Pressure -Offloading Yes -Treatment Response Procedure Tolerated Well [See Physician Procedure note for Specifics] Pain Scale: 0-10 Numeric [Pain] -Is Patient Pain Free? Yes Musculoskeletal: - - No tenderness with ulcer site manipulation Neurological: - - Epicritic sensation grossly absent to the lower extremities Psych/Mental Status: Normal Affect, Appropriate Debridement Note Post-Debridement Measurements/Treatment WC - Nurse 2 - General Ulcer CM Notes Start: 12/16/18 10:16 Freq: Status: Active Protocol: Activity Type Activity Date Activity User E-Sign Co-Sign Detail Recorded Client Recorded Date Recorded By Document 12/16/18 10:28 [id number] 12/16/18 10:34 MD Document 12/29/18 13:50 [id number] 12/29/18 13:52 12/16/18 12/29/18 10:28 13:50 Wound Center Nurse 2 2-left plantar foot -Time 10:29 10:05 -Correct Patient Yes Yes -Correct Side, Site, Position Yes Yes -Correct Procedure Yes -Procedure Performed Yes Yes -Type of Procedure Debridement Debridement -Clinical Debridement Subcutaneous Subcutaneous -Post Debridement Size (cm) - Length 1.2 0.6 -Post Debridement Size (cm) - Width 0.4 0.2 -Post Debridement Size (cm) - Depth 0.2 0.2 -Total Square Cm 0.48 0.12 -Wound/Ulcer Outcome Not Healed Not Healed -Ulcer Cleansing Rinsed/ Rinsed/ Irrigated with Irrigated with Saline Saline -Foul Odor after Cleansing No No -Bioengineered Tissue No No -Bleeding Controlled with NA Pressure -Offloading Yes Yes -Treatment Response Procedure Procedure Tolerated Well Tolerated Well Pain Scale: 0-10 Numeric Is Patient Pain Free? Yes Yes Wound debrided: Left distal plantar foot Laterality: Left Type of Debridement: Excisional debridement Anesthesia Used: 5% Lidocaine Gel Depth: in the subcutaneous layer Percentage of wound debrided: 100 Instrument Used: #15 blade Tissue Removed: Devitalized subcutaneous tissue, adherent slough, fibrin Severity: Fat Layer Exposed Amount of bleeding with debridement: Mild Bleeding Controlled with: Pressure Patient tolerated procedure well Assessment/Plan Assessment: Ulcer left foot with fat layer exposed. DM with neuropathy. PVD. Lower extremity edema. Other comorbidities Plan: Patient was carefully examined and evaluated again today with a family member present in the room. Ulcer site continues to show improvement. Another subcutaneous debridement was performed as noted in the clinical panel. Ulcer site was carefully dressed with Aquacel Ag, followed by dry sterile dressing. Patient is to have the dressing changed in this manner on a daily basis. She was instructed to not soak her foot. Patient is to offload the left plantar foot completely with the assistance of wheelchair. If she has to transfer for a short distance the patient is able to place weight to her left heel. She was instructed to keep any kind of pressure away from the ulcer site. The importance of tight glycemic control was discussed again today. I also recommend nutritional supplementation with a high protein diet in order to help optimize ulcer healing potential. LEAS and Venous doppler exams performed and detailed report in patient's chart. There is diminished toe brachial index noted on the right side as well as noncompressible DP artery. Patient saw Dr. Linda in [place]. Since that appointment she was referred back to his partner Dr. Fry who evaluated the patient and performed an angiogram. According to his operative report, he was able to improve blood flow through the peroneal and dorsalis pedis arteries. 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 Full reoport can be found in patient's electronic chart. Patient was educated on all signs and symptoms of local and systemic infection, and she was instructed to go to the emergency room immediately should she notice any of these before next visit. All questions were answered to the patient and her family satisfaction. At this time, we will see the patient back in office in 2 weeks to check on progress, but she is to follow back up sooner if needed before then.
== END 2019-01-08 23:59 ==
LOC: WC 09:45
PROVIDERS: Family Provider Family Medicine; PCP Family Medicine; Referring Provider Podiatrist; Visit Provider Podiatrist
DX: E11.621 Type 2 diabetes mellitus with foot ulcer (principal); E11.42 Type 2 diabetes mellitus with diabetic polyneuropathy; E11.51 Type 2 diabetes mellitus with diabetic peripheral angiopathy without gangrene; R60.0 Localized edema; I87.2 Venous insufficiency (chronic) (peripheral); L97.512 Non-pressure chronic ulcer of other part of right foot with fat layer exposed; E66.9 Obesity, unspecified; Z71.3 Dietary counseling and surveillance; Z68.39 Body mass index [BMI] 39.0-39.9, adult
CPT/HCPCS: 11042

== ENCOUNTER 2019-01-27 09:00 | Outpatient (RCR) | payer OTHER, SELFPAY ==
[2019-01-09 00:37] VITALS: BP 156/69; PULSE 75; RESP 14; TEMP 36.2
[2019-01-13 13:57] VITALS: BP 139/67; PULSE 80; RESP 18; TEMP 36.6; BMI 39.4
--- NOTE | 2019-01-13 15:01 | PN.PCM_ITS ---
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 Status: Chronic Current Visit: No Code(s): E11.621 - Type 2 diabetes mellitus with foot ulcer; L97.522 - Non-pressure chronic ulcer of other part of left foot with fat layer exposed (2) Type 2 diabetes mellitus with diabetic polyneuropathy Status: Chronic Current Visit: No Code(s): E11.42 - Type 2 diabetes mellitus with diabetic polyneuropathy (3) Delayed wound healing Status: Chronic Current Visit: No Code(s): T14.8XXD - Other injury of unspec ified body region, subsequent encounter (4) Lower extremity edema Status: Chronic Current Visit: No Code(s): R60.0 - Localized edema (5) PVD (peripheral vascular disease) Status: Suspected Current Visit: No Code(s): I73.9 - Peripheral vascular disease, unspecified Type of Wound Date of Service: 01/14/19 Chief Complaint: right foot ulcer History of Wound: Patient is being seen today as courtesy visit for Dr. Burks. This is a 73-year-old diabetic female who is being treated for a left plantar diabetic foot ulcer. Patient has been dressing the ulcer site with Lotus. Patient currently denies any feelings of nausea, vomiting, fever, chills. She has occasional mild foot pain. She had recent intervention with Dr. Fry to restore blood flow to the right foot. She denies nutrition supplementation use. She relates she had some redness occurring to the right foot when she presented to the [facility] emergency urgent center in the past, for which she was started on oral antibiotics again and a culture was obtained. This has since resolved. She denies any increased swelling or pain in foot, and denies any purulent or foul-smelling drainage. Progress of Wound: New blood blister present on plantar aspect of left foot, between second and third toes. Steady improvement of left foot DFU appreciated. The patient denies any fever, chills, nausea, vomiting, or diarrhea. Denies any signs of infection, including increasing pain, redness, swelling, or purulent/foul-smelling drainage from affected area. - Physical Exam Vital Signs Temp Pulse Resp BP 97.8 F 80 18 139/67 H 01/13/19 13:57 01/13/19 13:57 01/13/19 13:57 01/13/19 13:57 General: Alert, Oriented x3, Cooperative, No apparent distress HEENT: Atraumatic, EOMI, Normocephalic Extremities: No clubbing, No cyanosis, Diminished Peripheral Pulses, Edema - Mild edema bilateral lower extremities Skin: Ulcer/ Wound - see nursing documentation; DFU of left plantar foot, does not probe to bone, no s/s of infection. Blood blister present at the base of second and third toes, with no signs of infection, no surrounding erythema, swelling, or drainage. Wound Measurements and Assessment WC - Nurse 1 - General Ulcer Measurement Start: 01/13/19 13:57 Freq: Status: Active Protocol: Activity Type Activity Date Activity User E-Sign Co-Sign Detail Recorded Client Recorded Date Recorded By Document 01/13/19 13:57 RB [id number] 01/13/19 13:59 RB 01/13/19 13:57 Wound Center Nurse 1 [Ulcer Assessment] 2-left plantar foot -Combined with other wound No -Current Size (cm) - Length 0.1 -Current Size (cm) - Width 0.1 -Current Size (cm) - Depth 0.1 -Total Square Cm 0.01 -Tunneling No -Undermining/Tunneling No -Circular Undermining No -Exudate Amt Small -Exudate Type Serosanguineous -Wound Margin Thickened -Granulation Amt Large (67-100%) -Granulation Quality [place] -Slough/Fibrin Yes -Necrosis Amt Small (1-33%) -Necrotic Tissue Type Adherent Slough -Structure Exposed N/A -Texture (Becky-wound Skin Appearance) Assessed -Moisture (Becky-wound Skin Appearance Assessed ) -Color (Becky-wound Skin Appearance) Assessed -Temperature (Becky-wound Skin No Abnormality Appearance) (Pt Warm) -Tenderness on Palpation (Becky-wound No Skin Appearance) -Ulcer Cleansing Wound Cleanser -Foul Odor after Cleansing No -Anesthetic Used 4% Lidocaine Solution [Edema Assessment] -Lower Limb Edema Present Yes -Left Calf (cm) 47.2 -Left Ankle (cm) 23 Neurological: Neuro grossly intact Psych/Mental Status: Normal Affect, Appropriate Debridement Note Wound debrided: left plantar foot ulcer Laterality: Left Type of Debridement: Excisional debridement Anesthesia Used: 5% Lidocaine Gel Depth: in the subcutaneous layer Percentage of wound debrided: 100 Instrument Used: 3mm curette Tissue Removed: Callus, slough and devitalized tissue Severity: Fat Layer Exposed Amount of bleeding with debridement: Mild Bleeding Controlled with: Pressure Patient tolerated procedure well Assessment/Plan Assessment: Ulcer left foot with fat layer exposed. DM with neuropathy. PVD. Lower extremity edema. Other comorbidities Plan: Patient seen in clinic today as a courtesy visit for Dr. Burks. Patient was carefully examined and evaluated again today with a family member present in the room. In regards to the new blood blister, patient was instructed to avoid popping or picking at the blister, and avoid pressure on blister site. If the blister opens, creating a new wound, patient instructed to keep clean and dry and apply a sterile dressing, and not to remove any skin from the site of the blister. Left foot DFU stable at today's visit, with increase in amount of callus surrounding the ulcer. Another subcutaneous debridement was performed as noted in the clinical panel. Ulcer site was carefully dressed with Aquacel Ag, followed by dry sterile dressing. Patient is to have the dressing changed in this manner on a daily basis. She was instructed to not soak her foot. Patient is to offload the left plantar foot completely with the assistance of shaheen sawant. If she has to transfer for a short distance the patient is able to place weight to her left heel. She was instructed to keep any kind of pressure away from the ulcer site. The importance of tight glycemic control was discussed again today. I also recommend nutritional supplementation with a high protein diet in order to help optimize ulcer healing potential. LEAS and Venous doppler exams performed and detailed report in patient's chart. There is diminished toe brachial index noted on the right side as well as noncompressible DP artery. Patient saw Dr. Linda in [place]. Since that appointment she was referred back to his partner Dr. Fry who evaluated the patient and performed an angiogram. According to his operative report, he was able to improve blood flow through the peroneal and dorsalis pedis arteries. 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 Full report can be found in patient's electronic chart. Patient was educated on all signs and symptoms of local and systemic infection, and she was instructed to go to the emergency room immediately should she notice any of these before next visit. All questions were answered to the patient and her family satisfaction. At this time, we will see the patient back in office in 1 weeks to check on progress, but she is to follow back up sooner if needed before then. Code Visit [id number]: [id number] Ana subq tissue 20 sq cm/<
[2019-01-20 09:11] VITALS: BP 175/79; PULSE 76; RESP 18; TEMP 35.7; BMI 39.4
--- NOTE | 2019-01-20 09:11 | PN.PCM_ITS ---
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 Status: Chronic Current Visit: No Code(s): E11.621 - Type 2 diabetes mellitus with foot ulcer; L97.522 - Non-pressure chronic ulcer of other part of left foot with fat layer exposed (2) Type 2 diabetes mellitus with diabetic polyneuropathy Status: Chronic Current Visit: No Code(s): E11.42 - Type 2 diabetes mellitus with diabetic polyneuropathy (3) Delayed wound healing Status: Chronic Current Visit: No Code(s): T14.8XXD - Other injury of unspec ified body region, subsequent encounter (4) Lower extremity edema Status: Chronic Current Visit: No Code(s): R60.0 - Localized edema (5) PVD (peripheral vascular disease) Status: Suspected Current Visit: No Code(s): I73.9 - Peripheral vascular disease, unspecified Type of Wound Date of Service: 01/20/19 Chief Complaint: right foot ulcer History of Wound: This is a 73-year-old diabetic female who is being treated for a left plantar diabetic foot ulcer. Patient has been dressing the ulcer site with Lotus. Patient currently denies any feelings of nausea, vomiting, fever, chills. She has occasional mild foot pain. She had recent intervention with Dr. Fry to restore blood flow to the right foot. She denies nutrition supplementation use. She relates she had some redness occurring to the right foot when she presented to the [facility] emergency urgent center in the past, for which she was started on oral antibiotics again and a culture was obtained. This has since resolved. She denies any increased swelling or pain in foot, and denies any purulent or foul-smelling drainage. Progress of Wound: She reports that the blood blister on her left plantar foot between 2nd and 3rd toes has ruptured. Steady improvement of left foot DFU appreciated. The patient denies any fever, chills, nausea, vomiting, or diarrhea. Denies any signs of infection, including increasing pain, redness, swelling, or purulent/foul-smelling drainage from affected area. The wound has been dry without any drainage. - Physical Exam Vital Signs Temp Pulse Resp BP 97.8 F 80 18 139/67 H 01/13/19 13:57 01/13/19 13:57 01/13/19 13:57 01/13/19 13:57 General: Alert, Oriented x3, Cooperative, No apparent distress HEENT: Atraumatic, EOMI, Normocephalic Extremities: No clubbing, No cyanosis, Capillary Refill Less than 3 Seconds, Diminished Peripheral Pulses, Edema - Mild edema of BLE Skin: Ulcer/ Wound - See nursing documentation. No signs of infection, no erythema, no redness, no swelling, no purulent/foul-smelling drainage, no tenderness to palpation. No probing to bone. Blister has ruptured and healed entirely, no residual open wound at this site, - Neurological: Neuro grossly intact Psych/Mental Status: Normal Affect, Appropriate Debridement Note Post-Debridement Measurements/Treatment WC - Nurse 2 - General Ulcer CM Notes Start: 01/13/19 13:57 Freq: Status: Active Protocol: Activity Type Activity Date Activity User E-Sign Co-Sign Detail Recorded Client Recorded Date Recorded By Document 01/13/19 15:18 DV [id number] 01/13/19 15:22 DV 01/13/19 15:18 Wound Center Nurse 2 2-left plantar foot -Time 15:18 -Post Debridement Size (cm) - Length 0.5 -Post Debridement Size (cm) - Width 0.2 -Post Debridement Size (cm) - Depth 0.3 -Total Square Cm 0.10 -Wound/Ulcer Outcome Not Healed -Bleeding Controlled with Pressure -Offloading No Wound debrided: Left plantar foot ulcer Laterality: Left Type of Debridement: Excisional debridement Anesthesia Used: 5% Lidocaine Gel Depth: in the subcutaneous layer Percentage of wound debrided: 100 Instrument Used: 3mm curette, #15 blade Tissue Removed: Excessive of amounts of callus; slough and devitalized tissue Severity: Fat Layer Exposed Amount of bleeding with debridement: Mild Bleeding Controlled with: Compression and gauze Patient tolerated procedure well Assessment/Plan Assessment: Ulcer left foot with fat layer exposed. DM with neuropathy. PVD. Lower extremity edema. Other comorbidities Plan: Patient seen in clinic today as a courtesy visit for Dr. Burks. Patient was carefully examined and evaluated again today with a family member present in the room. Blood blister has ruptured and healed and does not require wound care. Left foot DFU improved at today's visit, with excessive amount of callus removed from area surrounding the ulcer. Another subcutaneous debridement was performed as noted in the clinical panel. Given the dryness of patient's wound, and lack of drainage, we will change wound dressing from Aquacel AG to Promogran. After debridement, ulcer site was carefully dressed with Promogran, followed by dry sterile dressing. Patient is to have the dressing changed in this manner on a daily basis. She was instructed to not soak her foot. Patient is to offload the left plantar foot completely with the assistance of wheelchair. Patient has been noncompliant with nonweightbearing instructions. Surgical shoe ordered today for offloading. Continue to instruct patient that if she has to transfer for a short distance, she is able to place weight to her left heel. She is still instructed to use the wheelchair as much as possible to avoid weightbearing on her left foot. She was instructed to keep any kind of pressure away from the ulcer site. The importance of tight glycemic control was discussed again today. I also recommend nutritional supplementation with a high protein diet in order to help optimize ulcer healing potential. LEAS and Venous doppler exams performed and detailed report in patient's chart. There is diminished toe brachial index noted on the right side as well as noncompressible DP artery. Patient saw Dr. Linda in [place]. Since that appointment she was referred back to his partner Dr. Fry who evaluated the patient and performed an angiogram. According to his operative report, he was able to improve blood flow through the peroneal and dorsalis pedis arteries. 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 Full report can be found in patient's electronic chart. Patient was educated on all signs and symptoms of local and systemic infection, and she was instructed to go to the emergency room immediately should she notice any of these before next visit. All questions were answered to the patient and her family satisfaction. At this time, we will see the patient back in office in 1 weeks to check on progress, but she is to follow back up sooner if needed before then. Code Visit [id number]: [id number] Ana subq tissue 20 sq cm/<
[2019-01-27 09:01] VITALS: BP 175/76; PULSE 79; RESP 18; TEMP 36.4; BMI 39.4
--- NOTE | 2019-01-27 10:17 | PN.PCM_ITS ---
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 Status: Chronic Current Visit: No Code(s): E11.621 - Type 2 diabetes mellitus with foot ulcer; L97.522 - Non-pressure chronic ulcer of other part of left foot with fat layer exposed (2) Type 2 diabetes mellitus with diabetic polyneuropathy Status: Chronic Current Visit: No Code(s): E11.42 - Type 2 diabetes mellitus with diabetic polyneuropathy (3) PVD (peripheral vascular disease) Status: Suspected Current Visit: No Code(s): I73.9 - Peripheral vascular disease, unspecified (4) Lower extremity edema Status: Chronic Current Visit: No Code(s): R60.0 - Localized edema (5) Venous insufficiency Status: Suspected Current Visit: No Code(s): I87.2 - Venous insufficiency (chronic) (peripheral) (6) Delayed wound healing Status: Chronic Current Visit: No Code(s): T14.8XXD - Other injury of unspecified body region, subsequent encounter Type of Wound Date of Service: 01/27/19 Chief Complaint: right foot ulcer History of Wound: This is a 73-year-old diabetic female who is being treated for a left plantar diabetic foot ulcer. Patient has been dressing the ulcer site with Lotus. Patient currently denies any feelings of nausea, vomiting, fever, chills. She has occasional mild foot pain. She had recent intervention with Dr. Fry to restore blood flow to the right foot. She denies nutrition supplementation use. She relates she had some redness occurring to the right foot when she presented to the [facility] emergency urgent center in the past, for which she was started on oral antibiotics again and a culture was obtained. This has since resolved. She denies any increased swelling or pain in foot, and denies any purulent or foul-smelling drainage. Progress of Wound: Improvement noted. Patient denies any signs of local infection to the area. Patient denies any feelings of nausea, vomiting, fever, chills. - Physical Exam Vital Signs Temp Pulse Resp BP 97.6 F L 79 18 175/76 H 01/27/19 09:01 01/27/19 09:01 01/27/19 09:01 01/27/19 09:01 General: Alert, Oriented x3, Cooperative, No apparent distress Extremities: Capillary Refill Less than 3 Seconds, No Calf Tenderness, Diminished Peripheral Pulses, Edema - Mild lower extremity edema Skin: Ulcer/ Wound - Ulcer to plantar aspect of the left distal plantar foot. The base is a mixture of devitalized subcutaneous tissue, adherent slough, fibrin, increasing granular tissue, and some surrounding hyperkeratotic tissue. There is no purulence, no streaking cellulitis, no significant increase in warmth, no probing to bone, no tracking, and no undermining at this time. Surrounding skin is hairless and atrophic. Wound Measurements and Assessment WC - Nurse 1 - General Ulcer Measurement Start: 01/13/19 13:57 Freq: Status: Active Protocol: Activity Type Activity Date Activity User E-Sign Co-Sign Detail Recorded Client Recorded Date Recorded By Document 01/27/19 09:01 JF [id number] 01/27/19 09:05 JF 01/27/19 09:01 Wound Center Nurse 1 [Ulcer Assessment] 2-left plantar foot -Combined with other wound No -Current Size (cm) - Length 0.1 -Current Size (cm) - Width 0.1 -Current Size (cm) - Depth 0.1 -Total Square Cm 0.01 -Photo Taken No -Epithelialization Large 67-100% -Tunneling No -Undermining/Tunneling No -Circular Undermining No -Exudate Amt None Present -Wound Margin Flat & Intact -Granulation Amt None Present (0 %) -Slough/Fibrin No -Necrosis Amt None Present (0 %) -Structure Exposed N/A -Texture (Becky-wound Skin Appearance) Assessed,Callus -Moisture (Becky-wound Skin Appearance Assessed,Dry/ ) Scaly -Color (Becky-wound Skin Appearance) Assessed -Temperature (Becky-wound Skin No Abnormality Appearance) (Pt Warm) -Tenderness on Palpation (Becky-wound No Skin Appearance) -Ulcer Cleansing Rinsed/ Irrigated with Saline -Foul Odor after Cleansing No [Edema Assessment] -Lower Limb Edema Present No WC - Nurse 2 - General Ulcer CM Notes Start: 01/13/19 13:57 Freq: Status: Active Protocol: Activity Type Activity Date Activity User E-Sign Co-Sign Detail Recorded Client Recorded Date Recorded By Document 01/27/19 09:34 DV [id number] 01/27/19 09:35 DV 01/27/19 09:34 Wound Center Nurse 2 [Procedure/Treatment] 2-left plantar foot -Time 09:34 -Correct Patient Yes -Correct Side, Site, Position Yes -Correct Procedure Yes -Procedure Performed Yes -Type of Procedure Debridement -Clinical Debridement Subcutaneous -Post Debridement Size (cm) - Length 0.4 -Post Debridement Size (cm) - Width 0.2 -Post Debridement Size (cm) - Depth 0.2 -Total Square Cm 0.08 -Wound/Ulcer Outcome Not Healed -Ulcer Cleansing Rinsed/ Irrigated with Saline -Foul Odor after Cleansing No -Bioengineered Tissue No -Bleeding Controlled with Pressure -Offloading Yes -Type of Offloading Surgical Shoe -Treatment Response Procedure Tolerated Well [See Physician Procedure note for Specifics] Pain Scale: 0-10 Numeric [Pain] -Is Patient Pain Free? Yes Musculoskeletal: - - No tenderness with ulcer site manipulation Neurological: - - Epicritic sensation grossly absent to lower extremities Psych/Mental Status: Normal Affect, Appropriate Debridement Note Post-Debridement Measurements/Treatment WC - Nurse 2 - General Ulcer CM Notes Start: 01/13/19 13:57 Freq: Status: Active Protocol: Activity Type Activity Date Activity User E-Sign Co-Sign Detail Recorded Client Recorded Date Recorded By Document 01/13/19 15:18 DV [id number] 01/13/19 15:22 DV Document 01/20/19 09:27 DV [id number] 01/20/19 09:56 DV Document 01/27/19 09:34 DV [id number] 01/27/19 09:35 DV 01/13/19 01/20/19 01/27/19 15:18 09:27 09:34 Wound Center Nurse 2 2-left plantar foot -Time 15:18 09:27 09:34 -Correct Patient Yes Yes -Correct Side, Site, Position Yes Yes -Correct Procedure Yes Yes -Procedure Performed Yes Yes -Type of Procedure Debridement Debridement -Clinical Debridement Subcutaneous Subcutaneous -Post Debridement Size (cm) - Length 0.5 0.4 0.4 -Post Debridement Size (cm) - Width 0.2 0.2 0.2 -Post Debridement Size (cm) - Depth 0.3 0.3 0.2 -Total Square Cm 0.10 0.08 0.08 -Wound/Ulcer Outcome Not Healed Not Healed Not Healed -Ulcer Cleansing Rinsed/ Rinsed/ Irrigated with Irrigated with Saline Saline -Foul Odor after Cleansing No No -Bioengineered Tissue No No -Bleeding Controlled with Pressure Pressure Pressure -Offloading No No Yes -Type of Offloading Surgical Shoe -Treatment Response Procedure Procedure Tolerated Well Tolerated Well Pain Scale: 0-10 Numeric Is Patient Pain Free? Yes Yes Wound debrided: Left distal plantar foot Laterality: Left Type of Debridement: Excisional debridement Anesthesia Used: 4% Lidocaine Solution Depth: in the subcutaneous layer Percentage of wound debrided: 100 Instrument Used: #15 blade Tissue Removed: Devitalized subcutaneous tissue, adherent slough, fibrin Severity: Fat Layer Exposed Amount of bleeding with debridement: Mild Bleeding Controlled with: Pressure Patient tolerated procedure well Assessment/Plan Assessment: Ulcer left foot with fat layer exposed. DM with neuropathy. PVD. Lower extremity edema. Other comorbidities Plan: Patient was carefully examined and evaluated again today with a family member present in the room. Ulcer site is improving since I last saw the patient. Another subcutaneous debridement was performed as noted in the clinical panel. Ulcer site was carefully dressed with Lotus, followed by dry sterile dressing. Patient is to have the dressing changed in this manner on a daily basis. She was instructed to not soak her foot. Patient is to offload the left plantar foot completely with the assistance of wheelchair. She has been noncompliant with this over the past few weeks. I stressed the importance of getting back into the wheelchair in order to completely offload the foot. She relates that she understands this. If she has to transfer for a short distance the patient is able to place weight to her left heel with the assistance of offloading surgical shoe. She was instructed to keep any kind of pressure away from the ulcer site. The importance of tight glycemic control was discussed again today. I also recommend nutritional supplementation with a high protein diet in order to help optimize ulcer healing potential. LEAS and Venous doppler exams performed and detailed report in patient's chart. There is diminished toe brachial index noted on the right side as well as noncompressible DP artery. Patient saw Dr. Linda in [place]. Since that appointment she was referred back to his partner Dr. Fry who evaluated the patient and performed an angiogram. According to his operative report, he was able to improve blood flow through the peroneal and dorsalis pedis arteries. 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 Full reoport can be found in patient's electronic chart. Patient was educated on all signs and symptoms of local and systemic infection, and she was instructed to go to the emergency room immediately should she notice any of these before next visit. All questions were answered to the patient's satisfaction. At this time, we will see the patient back in office in 2 weeks to check on progress, but she is to follow back up sooner if needed before then.
== END 2019-02-08 23:59 ==
LOC: WC 09:00
PROVIDERS: Family Provider Family Medicine; PCP Family Medicine; Referring Provider Podiatrist; Visit Provider Podiatrist
DX: E11.621 Type 2 diabetes mellitus with foot ulcer (principal); L97.512 Non-pressure chronic ulcer of other part of right foot with fat layer exposed; R60.0 Localized edema; E11.51 Type 2 diabetes mellitus with diabetic peripheral angiopathy without gangrene; E11.42 Type 2 diabetes mellitus with diabetic polyneuropathy; Z91.19 Patient's noncompliance with other medical treatment and regimen
CPT/HCPCS: 11042

== ENCOUNTER 2019-02-17 10:00 | Outpatient (RCR) | payer OTHER, SELFPAY ==
[2019-02-09 00:31] VITALS: BP 175/76; PULSE 79; RESP 18; TEMP 36.4
[2019-02-10 09:44] VITALS: BP 167/79; PULSE 81; RESP 16; TEMP 36.2; BMI 39.4
--- NOTE | 2019-02-10 12:08 | PN.PCM_ITS ---
(1) Type 2 diabetes mellitus with diabetic polyneuropathy Status: Chronic Current Visit: No Code(s): E11.42 - Type 2 diabetes mellitus with diabetic polyneuropathy (2) PVD (peripheral vascular disease) Status: Suspected Current Visit: No Code(s): I73.9 - Peripheral vascular disease, unspecified (3) Lower extremity edema Status: Chronic Current Visit: No Code(s): R60.0 - Localized edema (4) Venous insufficiency Status: Suspected Current Visit: No Code(s): I87.2 - Venous insufficiency (chronic) (peripheral) (5) Delayed wound healing Status: Chronic Current Visit: No Code(s): T14.8XXD - Other injury of unspecified body region, subsequent encounter (6) 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 Patient has been dressing the ulcer site with Lotus. Patient currently denies any feelings of nausea, vomiting, fever, chills. She has occasional mild foot pain. She had recent intervention with Dr. Fry to restore blood flow to the right foot. She denies nutrition supplementation use. She relates she had some redness occurring to the right foot when she presented to the [facility] emergency urgent center in the past, for which she was started on oral antibiotics again and a culture was obtained. This has since resolved. She denies any increased swelling or pain in foot, and denies any purulent or foul-smelling drainage. Progress of Wound: Improvement noted again today and site almost healed. Patient denies any signs of local infection to the area. Patient denies any feelings of nausea, vomiting, fever, chills. - Physical Exam Vital Signs Temp Pulse Resp BP 97.1 F L 81 16 167/79 H 02/10/19 09:44 02/10/19 09:44 02/10/19 09:44 02/10/19 09:44 General: Alert, Oriented x3, Cooperative, No apparent distress Extremities: Capillary Refill Less than 3 Seconds, No Calf Tenderness, D iminished Peripheral Pulses, Edema - Mild lower extremity edema Skin: Ulcer/ Wound - Ulcer to plantar aspect of the left distal plantar foot. The base is granular tissue and some surrounding hyperkeratotic tissue. There is no purulence, no streaking cellulitis, no significant increase in warmth, no probing to bone, no tracking, and no undermining at this time. Surrounding skin is hairless and atrophic. Wound Measurements and Assessment WC - Nurse 1 - General Ulcer Measurement Start: 02/10/19 09:43 Freq: Status: Active Protocol: Activity Type Activity Date Activity User E-Sign Co-Sign Detail Recorded Client Recorded Date Recorded By Document 02/10/19 09:44 [facility] [id number] 02/10/19 09:50 [facility] 02/10/19 09:44 Wound Center Nurse 1 [Ulcer Assessment] 2-left plantar foot -Combined with other wound No -Current Size (cm) - Length 0.1 -Current Size (cm) - Width 0.1 -Current Size (cm) - Depth 0.1 -Total Square Cm 0.01 -Epithelialization Large 67-100% -Tunneling No -Undermining/Tunneling No -Circular Undermining No -Exudate Amt None Present -Texture (Becky-wound Skin Appearance) Assessed,Callus -Moisture (Becky-wound Skin Appearance Assessed,Dry/ ) Scaly -Color (Becky-wound Skin Appearance) Assessed -Temperature (Becky-wound Skin No Abnormality Appearance) (Pt Warm) -Tenderness on Palpation (Becky-wound No Skin Appearance) -Ulcer Cleansing Rinsed/ Irrigated with Saline -Foul Odor after Cleansing No -Anesthetic Used 5% Lidocaine Gel Musculoskeletal: - - No tenderness with ulcer site manipulation Neurological: - - Epicritic sensation grossly absent to lower extremities Psych/Mental Status: Normal Affect, Appropriate Debridement Note No debridement was completed today Assessment/Plan Assessment: Ulcer left foot with fat layer exposed. DM with neuropathy. PVD. Lower extremity edema. Other comorbidities Plan: Patient was carefully examined and evaluated again today with a family member present in the room. Ulcer site almost completely healed today. No significant debridement was performed today. Ulcer site was carefully dressed with Lotus, followed by dry sterile dressing. Patient is to have the dressing changed in this manner on a daily basis. She was instructed to not soak her foot. Patient is to offload the left plantar foot completely with the assistance of wheelchair. If she has to transfer for a short distance the patient is able to place weight to her left heel with the assistance of offloading surgical shoe. She was instructed to keep any kind of pressure away from the ulcer site. The importance of tight glycemic control was discussed again today. I also recommend nutritional supplementation with a high protein diet in order to help optimize ulcer healing potential. LEAS and Venous doppler exams performed and detailed report in patient's chart. There is diminished toe brachial index noted on the right side as well as noncompressible DP artery. Patient saw Dr. Linda in [place]. Since that appointment she was referred back to his partner Dr. Fry who evaluated the patient and performed an angiogram. According to his operative report, he was able to improve blood flow through the peroneal and dorsalis pedis arteries. 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 Full reoport can be found in patient's electronic chart. Patient was educated on all signs and symptoms of local and systemic infection, and she was instructed to go to the emergency room immediately should she notice any of these before next visit. All questions were answered to the patient's sa tisfaction. At this time, we will see the patient back in office in 1 week to check on progress, but she is to follow back up sooner if needed before then.
[2019-02-17 09:57] VITALS: BP 119/68; PULSE 81; RESP 16; TEMP 35.6; BMI 39.4
--- NOTE | 2019-02-17 11:44 | PN.PCM_ITS ---
(1) Type 2 diabetes mellitus with diabetic polyneuropathy Status: Chronic Current Visit: No Code(s): E11.42 - Type 2 diabetes mellitus with diabetic polyneuropathy (2) PVD (peripheral vascular disease) Status: Suspected Current Visit: No Code(s): I73.9 - Peripheral vascular disease, unspecified (3) Lower extremity edema Status: Chronic Current Visit: No Code(s): R60.0 - Localized edema (4) Venous insufficiency Status: Suspected Current Visit: No Code(s): I87.2 - Venous insufficiency (chronic) (peripheral) (5) Delayed wound healing Status: Chronic Current Visit: No Code(s): T14.8XXD - Other injury of unspecified body region, subsequent encounter (6) Diabetic ulcer of left foot with fat layer exposed Status: Chronic Current Visit: No Code(s): E11.621 - Type 2 diabetes mellitus with foot ulcer; L97.522 - Non-pressure chronic ulcer of other part of left foot with fat layer exposed Type of Wound Date of Service: 02/17/19 Chief Complaint: right foot ulcer History of Wound: This is a 73-year-old diabetic female who is being treated for a left plantar diabetic foot ulcer. Patient has been dressing the ulcer site with Lotus. Patient currently denies any feelings of nausea, vomiting, fever, chills. She has occasional mild foot pain. She had recent intervention with Dr. Fry to restore blood flow to the right foot. She denies nutrition supplementation use. She relates she had some redness occurring to the right foot when she presented to the [facility] emergency urgent center in the past, for which she was started on oral antibiotics again and a culture was obtained. This has since resolved. She denies any increased swelling or pain in foot, and denies any purulent or foul-smelling drainage. Progress of Wound: Ulcer site appears healed today. Patient denies any feelings of nausea, vomiting, fever, chills. - Physical Exam Vital Signs Temp Pulse Resp BP 96.1 F L 81 16 119/68 02/17/19 09:57 02/17/19 09:57 02/17/19 09:57 02/17/19 09:57 General: Alert, Oriented x3, Cooperative, No apparent distress Extremities: Capillary Refill Less than 3 Seconds, No Calf Tenderness, Diminished Peripheral Pulses, Edema - Mild lower extremity edema Skin: Ulcer/ Wound - Ulcer to plantar aspect of the left distal foot appears healed today with no signs of local infection. Wound Measurements and Assessment WC - Nurse 1 - General Ulcer Measurement Start: 02/10/19 09:43 Freq: Status: Active Protocol: Activity Type Activity Date Activity User E-Sign Co-Sign Detail Recorded Client Recorded Date Recorded By Document 02/17/19 09:57 [id number] 02/17/19 09:59 02/17/19 09:57 Wound Center Nurse 1 [Ulcer Assessment] 2-left plantar foot -Combined with other wound No -Current Size (cm) - Length 0.1 -Current Size (cm) - Width 0.1 -Current Size (cm) - Depth 0.1 -Total Square Cm 0.01 -Date of Last Picture (Recall this 02/17/19 field) -Photo Taken Yes -Epithelialization Large 67-100% -Texture (Becky-wound Skin Appearance) Callus -Anesthetic Used 4% Lidocaine Solution [Edema Assessment] -Lower Limb Edema Present NA WC - Nurse 2 - General Ulcer CM Notes Start: 02/10/19 09:43 Freq: Status: Active Protocol: Activity Type Activity Date Activity User E-Sign Co-Sign Detail Recorded Client Recorded Date Recorded By Document 02/17/19 10:41 DV [id number] 02/17/19 10:42 DV 02/17/19 10:41 Wound Center Nurse 2 [Procedure/Treatment] 2-left plantar foot -Time 10:42 -Correct Patient Yes -Correct Side, Site, Position Yes -Correct Procedure No -Procedure Performed No -Post Debridement Size (cm) - Length 0 -Post Debridement Size (cm) - Width 0 -Post Debridement Size (cm) - Depth 0 -Total Square Cm 0 -Wound/Ulcer Outcome Healed- Epithelialized [See Physician Procedure note for Specifics] Pain Scale: 0-10 Numeric [Pain] -Is Patient Pain Free? Yes Musculoskeletal: - - No tenderness with ulcer site manipulation Neurological: - - Epicritic sensation grossly absent to lower extremities Psych/Mental Status: Normal Affect, Appropriate Debridement Note Post-Debridement Measurements/Treatment WC - Nurse 2 - General Ulcer CM Notes Start: 02/10/19 09:43 Freq: Status: Active Protocol: Activity Type Activity Date Activity User E-Sign Co-Sign Detail Recorded Client Recorded Date Recorded By Document 01/02/20 14:45 DV [id number] 02/10/19 14:49 DV Document 02/17/19 10:41 DV [id number] 02/17/19 10:42 DV 02/10/19 02/17/19 14:45 10:41 Wound Center Nurse 2 2-left plantar foot -Time 14:46 10:42 -Correct Patient Yes Yes -Correct Side, Site, Position Yes Yes -Correct Procedure Yes No -Procedure Performed Yes No -Type of Procedure Debridement -Clinical Debridement Subcutaneous, Muscle -Post Debridement Size (cm) - Length 0.1 0 -Post Debridement Size (cm) - Width 0.1 0 -Post Debridement Size (cm) - Depth 0.1 0 -Total Square Cm 0.01 0 -Wound/Ulcer Outcome Not Healed Healed- Epithelialized -Ulcer Cleansing Rinsed/ Irrigated with Saline -Foul Odor after Cleansing Yes -Bioengineered Tissue No -Bleeding Controlled with Pressure -Offloading No -Treatment Response Procedure Tolerated Well Pain Scale: 0-10 Numeric Is Patient Pain Free? Yes Yes No debridement was completed today Assessment/Plan Assessment: Ulcer left foot with fat layer exposed. DM with neuropathy. PVD. Lower extremity edema. Other comorbidities Plan: Patient was carefully examined and evaluated again today with a family member present in the room. Ulcer site is healed today with no signs of local infection to the site. No significant debridement was performed today. Patient is to wear her offloading surgical shoe for the next 2 weeks while the skin continues to strengthen and heal. At that time she is then to slowly transition over the course of another week into a regular shoe. We discussed the absolute importance of monitoring her feet multiple times each day in order to make sure there is no re-ulceration. The importance of tight glycemic control was discussed again today. I also recommend nutritional supplementation with a high protein diet in order to help optimize ulcer healing potential. Patient was educated on all signs and symptoms of local and systemic infection, and she was instructed to go to the emergency room immediately should she notice any of these. At this time, the patient will be discharged from the wound healing center, but she is to follow back up if needed for any reason.
== END 2019-03-11 23:59 ==
LOC: WC 10:00
PROVIDERS: Family Provider Family Medicine; PCP Family Medicine; Referring Provider Podiatrist; Visit Provider Podiatrist
DX: Z09 Encounter for follow-up examination after completed treatment for conditions other than malignant neoplasm (principal); E11.40 Type 2 diabetes mellitus with diabetic neuropathy, unspecified; E11.51 Type 2 diabetes mellitus with diabetic peripheral angiopathy without gangrene
CPT/HCPCS: 99212; 99213; G0463

== ENCOUNTER → 2019-08-10 09:23 | Outpatient (CLI) | payer SELFPAY ==
[2019-08-10 08:56] VITALS: BMI 39.4
[2019-08-10 12:50] LABS: AST(SGOT) 25 U/L (15-37); Alanine Aminotransfer ALT/SGPT 37 U/L (13-56); Albumin, Serum 3.9 g/dL (3.2-5.0); Alkaline Phosphatase 61 U/L (45-117); Anion Gap 7 (5-15); BUN 26 mg/dL (7-18); BUN/Creat Ratio 26.1 RATIO (10-20); Calcium,Total 9.1 mg/dL (8.5-10.1); Chloride 103 mmol/L (98-107); EST Glomerular Filtration Rate 58 mL/min (>60); Est Glom Filt Rate - Afr Amer 70 mL/min (>60); Glucose 127 mg/dL (74-106); Potassium 4.6 mmol/L (3.5-5.1); Protein, Total 7.9 g/dL (6.4-8.2); Sodium Level 140 mmol/L (136-145)
== END ==
PROVIDERS: PCP Family Medicine; Referring Provider Family Medicine; Visit Provider Family Medicine
DX: E11.9 Type 2 diabetes mellitus without complications (principal)
CPT/HCPCS: 36415; 80053

== ENCOUNTER → 2020-07-13 14:10 | Outpatient (CLI) | payer SELFPAY ==
[2020-07-13 13:24] VITALS: BMI 34.2
[2020-07-13 17:27] LABS: Absolute Lymphocyte Count 3.65 X10^3/uL (0.83-4.51); Absolute Neutrophil Count 4.4 X10^3/uL (2.0-7.7); Basophil# 0.05 X10^3/uL; Basophil% 0.6 % (0-1); Eosinophil# 0.26 X10^3/uL; Eosinophils% 2.9 % (0-5); Hematocrit 37.9 % (37-47); Hemoglobin 11.7 g/dL (12.0-15.0); Lymphocyte # 3.65 X10^3/ul (0.83-4.51); Lymphocyte % 40.3 % (19-41); Mean Corp Hgb Conc 30.9 g/dL (32-36); Mean Corpuscular Hgb 28.7 pg (27.0-32.0); Mean Corpuscular Volume 93.1 fL (81-99); Mean Platelet Vol. 12.2 fl (6.2-12.0); Monocyte# 0.63 X10^3/uL; NRBC Flagged by Analyzer 0 % (0-5); Neutrophil # 4.44 X10^3/uL (2.7-7.7); Neutrophil % 48.9 % (47-70); Platelet Count 351 K/mm3 (150-450); RBC Distribution Width CV 13.7 % (11.6-14.6); RBC Distribution Width SD 46.8 fl (35.1-43.9); Red Blood Count 4.07 M/mm3 (4.2-5.4); White Blood Count 9.1 K/mm3 (4.4-11.0)
[2020-07-13 17:38] LABS: ALB/GLOB Ratio 0.9 RATIO (0.9-2.4); AST(SGOT) 19 U/L (15-37); Alanine Aminotransfer ALT/SGPT 31 U/L (13-56); Albumin, Serum 3.8 g/dL (3.2-5.0); Alkaline Phosphatase 56 U/L (45-117); Anion Gap 8 (5-15); BUN 25 mg/dL (7-18); BUN/Creat Ratio 21.4 RATIO (10-20); Calcium,Total 9.7 mg/dL (8.5-10.1); Chloride 105 mmol/L (98-107); Creatinine, Serum 1.17 mg/dL (0.55-1.02); EST Glomerular Filtration Rate 48 mL/min (>60); Est Glom Filt Rate - Afr Amer 58 mL/min (>60); Globulin 4.3 g/dL (2.2-4.2); Glucose 160 mg/dL (74-106); Potassium 4.3 mmol/L (3.5-5.1); Protein, Total 8.1 g/dL (6.4-8.2); Sodium Level 141 mmol/L (136-145)
== END ==
PROVIDERS: Physician Assistant; PCP Family Medicine; Visit Provider Family Medicine
DX: E11.42 Type 2 diabetes mellitus with diabetic polyneuropathy (principal)
CPT/HCPCS: 36415; 80053; 85025

== ENCOUNTER → 2020-07-17 12:42 | Outpatient (CLI) | payer SELFPAY, OTHER ==
[2020-07-13 13:24] VITALS: BMI 34.2
--- NOTE | 2020-07-17 12:48 | EKG12_ITS ---
Test Reason : PRE-OP Blood Pressure : / mmHG Vent. Rate : 078 BPM Atrial Rate : 078 BPM P-R Int : 154 ms QRS Dur : 104 ms QT Int : 392 ms P-R-T Axes : 055 -32 063 degrees QTc Int : 446 ms Normal sinus rhythm Left axis deviation Incomplete left bundle branch block Abnormal ECG Confirmed by MEGAN NEWMAN, HAILEY ([id number]), assistant film editor SCARLETT VALLE ([id number]) on 07/18/2020 9:13:56 AM Referred By: Lorelei Bartlett Confirmed By:HAILEY GUZMAN MD
== END ==
PROVIDERS: PCP Family Medicine; Referring Provider Physician Assistant; Visit Provider Physician Assistant
DX: Z01.810 Encounter for preprocedural cardiovascular examination (principal)
CPT/HCPCS: 93005

== ENCOUNTER → 2020-07-25 12:22 | Outpatient (CLI) | payer SELFPAY, OTHER ==
[2020-07-13 13:24] VITALS: BMI 34.2
--- NOTE | 2020-07-25 12:32 | STE_ITS ---
Reason For Study: PREOP Stress Results Protocol: Dobutamine Maximum Predicted HR: 147 bpm Target HR: 125 bpm % Maximum Predicted HR: 89 % Heart Stage Duration Rate BP Dose Comment (mm:ss) (bpm) BASELINE 77 164/84 STAGE 1 3:00 92 167/8010.00 STAGE 2 4:50 131 163/7120.00 NOTED DURING RECOVERY TO HAVE SVT UP TO 200 BPM, VAGAL MANEUVER RECOVERY 104 149/86 COMPLETED AND COUGH, NOTED TO BREAK TO 120'S AND THEN RETURNED TO BASELINE Stress Duration: 7:50 mm:ss Maximum Stress HR: 131 bpm Baseline Echocardiogram Findings Stress Echo Wall motion Data Resting WM Intermediate WM Stress WM ECHO/Stress Test Echo w/o Contrast Interpretation Summary Dobutamine stress echocardiogram. 75-year-old man with a history of spinal stenosis for preoperative evaluation. Stress protocol: Resting EKG demonstrates normal sinus rhythm with a rate of 76, with normal int ervals. Resting blood pressure is 164/84 mmHg. Dobutamine was infused starting at 10 mcg/kg/min and i ncreasing in 3-minute increments to a peak of 20 mcg/kg/min. The maximum heart rate attained was 200 bpm which was a period of supraventricular tachyarrhythmia noted during recovery. At rest there were no ST or T wave changes noted to suggest ischemia and at peak infusion nonspecific ST changes w ere noted which did not denote ischemia. The test was terminated due to attainment of target heart rate. The peak blood pressure was 195/93 mmHg. Dobutamine echocardiogram. Dobutamine echocardiogram obtained at rest demonstrated normal resting ejection fraction of approximately 57%. No wall motion abnormalities or valvular abnormalities were noted at rest. During low-dose and peak exercise there was thickening of all mix, reduction of low ventricular cavity size and no new wall motion abnormalities developing to suggest ischemia. Conclusion: Normal dobutamine stress echocardiogram. Normal resting and stress ejection fraction. Dobutamine induced supraventricular tachyarrhythmia abating with vagal maneuver s. Ordering Physician: Lorelei Bartlett Referring Physician: Lorelei Bartlett Performed By: Angela Castillo, PAYAM, RVT
== END ==
PROVIDERS: PCP Family Medicine; Referring Provider Physician Assistant; Visit Provider Physician Assistant
DX: Z01.818 Encounter for other preprocedural examination (principal); R94.31 Abnormal electrocardiogram [ECG] [EKG]
CPT/HCPCS: 93017; 93350; J7040; A4216

== ENCOUNTER → 2020-12-26 10:02 | Outpatient (CLI) | payer OTHER, SELFPAY ==
--- NOTE | 2020-12-26 10:05 | ART_ITS ---
Reason For Study: PAIN Procedure A bilateral lower extremity continuous wave Doppler with analog waveform analysis and ankle brachial indexes. Left Segmental Pressures Left brachial= 160mmHg. Left posterior tibial artery = 139mmHg. Left dorsalis pedis artery = 191mmHg. Left digit = 119 mmHg. The left dorsalis pedis waveforms are biphasic. The left posterior tibial artery waveforms are biphasic. Right Segmental Pressures Right brachial= 145mmHg. Right posterior tibial artery = 85mmHg. Right dorsalis pedis artery = N/CmmHg. Right digit = 59 mmHg. The right dorsalis pedis waveforms are monophasic. The right posterior tibial artery waveforms are monophasic. Indices The right ankle brachial index by the dorsalis pedis is N/C. The right ankle brachial index by the posterior tibial artery is .53. The right digital-brachial index is .37. The left ankle brachial index by the posterior tibial artery is .87. The left ankle brachial index by the dorsalis pedis is 1.19. The left digital-brachial index is .74. VL/Ankle Brachial Index Interpretation Summary Right leg with noncompressibility of the DP and an KYM 0.53 the posterior tibia l with biphasic flow. Left leg with near triphasic flow of the DP with an KYM of 1.19. Digit brachial index of 0.37 and 0.74. Ordering Physician: Jose Fry Referring Physician: ISMAEL MEDINA Performed By: PEARL AGGARWAL [facility]
--- NOTE | 2020-12-26 10:06 | ADUL_ITS ---
Left Velocities Ext Iliac Artery, dist = 89.2 cm./sec. Common Femoral Artery, mid = 97.8 cm./sec. Supf. Femoral Artery, prox = 94.3 cm./sec. Supf. Femoral Artery, mid = 74.1 cm./sec. Supf. Femoral Artery, dist = 83.2 cm./sec. Profunda Femoral Artery = 75.7 cm./sec. Popliteal Artery, mid = 107.0 cm./sec. Ant.Tibial Artery, prox = 48.3 cm./sec. Ant Tibial Artery, mid = 40.6 cm./sec. Ant. Tibial Artery, distal = 23.0 cm./sec. Post. Tibial Artery, prox = 13.9 cm./sec. Post Tibial Artery, mid = 0 cm./sec. Post Tibial Artery, dist. = 0 cm./sec. Peroneal Artery, prox = 46.1 cm./sec. Peroneal Artery, mid = 55.9 cm./sec. Peroneal Artery,dist. = 19.7 cm./sec. Procedure Exam performed in department. /US Art Duplex Unilat Lower Ext Interpretation Summary The left posterior tibial artery is occluded. Otherwise no significant stenosis with good inline flow through the peroneal and anterior tibial artery with what appears to be tr iphasic flow. Ordering Physician: Jose Fry Referring Physician: ISMAEL MEDINA Performed By: Angela Castillo, PAYAM, RVT
== END ==
PROVIDERS: PCP Family Medicine; Referring Provider Surgery Vascular Surgery; Visit Provider Surgery Vascular Surgery
DX: I77.1 Stricture of artery (principal); I70.213 Atherosclerosis of native arteries of extremities with intermittent claudication, bilateral legs; M79.89 Other specified soft tissue disorders; M79.604 Pain in right leg; M79.605 Pain in left leg; E11.9 Type 2 diabetes mellitus without complications
CPT/HCPCS: 93922; 93926

== ENCOUNTER 2021-11-10 07:06 | Inpatient (IN) | payer OTHER, SELFPAY ==
[2021-11-10 07:09] VITALS: BP 135/57; PULSE 90; RESP 16; TEMP 37.4; O2SAT 94; BMI 34.3
--- NOTE | 2021-11-10 07:23 | RAD_ITS ---
EXAM: XR CHEST, 1 VIEW CLINICAL INDICATION: cough, weakness TECHNIQUE: Frontal view of the chest. This report was created using [employer] report generation technology. COMPARISON: 10/08/2018 FINDINGS: LUNGS AND PLEURAL SPACES: Unremarkable. No consolidation or edema. No pneumothorax. No effusion. HEART: Unremarkable. Cardiac silhouette not enlarged. MEDIASTINUM: Central airways and mediastinal contour are unremarkable. BONES/JOINTS: Unremarkable. SOFT TISSUES: Unremarkable. RAD/Chest 1 View (Portable) IMPRESSION: No radiographic evidence of acute cardiopulmonary disease. Electronically Signed: Peter Pascual MD at 8:13 EDT ,
--- NOTE | 2021-11-10 07:23 | CT_ITS ---
EXAM: CT HEAD WITHOUT INTRAVENOUS CONTRAST CLINICAL INDICATION: confusion TECHNIQUE: Multiple axial images were obtained of the head without intravenous contrast. This CT exam was performed using one or more of the following dose reduction techniques: automated exposure control, adjustment of the mA and/or kV according to patient size, and/or use of iterative reconstruction technique. This report was created using [employer] technology. COMPARISON: None. FINDINGS: BRAIN AND EXTRA-AXIAL SPACES: Unremarkable. No intra- or extra-axial hemorrhage. No evidence of acute infarct. No intracranial mass or mass effect. There is preservation of the frias/white matter interface. Posterior fossa structures are unremarkable. Ventricles are appropriate for age. No hydrocephalus. Basal cisterns are patent. BONES/JOINTS: Unremarkable. No discrete lytic or blastic abnormalities. SINUSES: Unremarkable as visualized. Clear. MASTOID AIR CELLS: Unremarkable. Clear. ORBITS: Visualized globes, extraocular muscles, optic nerves and retrobulbar fat appear unremarkable. CT/Brain/Head without Contrast IMPRESSION: Negative head/brain CT without intravenous contrast. Electronically Signed: Peter Pascual MD at 8:54 EDT ,
--- NOTE | 2021-11-10 07:31 | EDS_ITS ---
HPI History of Present Illness Chief Complaint: Hyperglycemia Informant: patient and family Onset/Context/Timing Onset: Days (Several) Context: Gradual Onset Timing: Continuous Quality: Weak and malaised Location: All over Current Severity: Severe Maximum Severity: Severe Worsened by: Nothing Relieved by: Nothing Associated Symptoms Associated Symptoms: Polydipsia polyuria leg pain and redness Narrative Narrative: Patient has been feeling poorly last several days and getting confused starting last night and this morning, as well as weakness that started last night and worse this morning with inability to stand or walk which she usually is able to do. Lives with family. Blood sugar reading over 500 when they checked it this morning, she is a type II diabetic treated with oral medications no insulins. She has been compliant with her medications. She does not recall eating or drinking lots of sugar or carbohydrates in the last couple days to explain this. No near-syncope or syncope. She states her legs have been hurting and she has noticed some redness when I asked her about it, but that was not forthcoming voluntarily prior to me noticing her leg redness. She denies any other focal symptoms but family states she has been confused, talking about nonsense last night at least. 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 Incomplete left bundle branch block Lesion of lumbar spine Spinal stenosis, lumbar SVT (supraventricular tachycardia) Type 2 diabetes mellitus Ulcer of right foot with fat layer exposed Vitreous hemorrhage of left eye Home Medications CuraLin See Rx Instructions .Route .COMPLEX 08/10/19 [History Last Taken Unknown] sitagliptin 50 mg-metformin 1,000 mg tablet (Janumet) 1 tab PO DAILY #90 tabs 08/17/19 [Rx Last Taken Unknown] aspirin 81 mg chewable tablet (Margarita Chewable Low Dose Aspirin) 81 mg PO DAILY 02/22/20 [History Last Taken Unknown] glipizide 5 mg tablet 5 mg PO DAILY #90 tabs 07/24/21 [Rx Last Taken Unknown] lisinopril 10 mg tablet 10 mg PO DAILY #90 tabs 07/26/21 [Rx Last Taken Unknown] propranolol 80 mg capsule,24 hr,extended release 80 mg PO DAILY #90 caps 07/29/21 [Rx Last Taken Unknown] Allergy/AdvReac Type Severity Reaction Status Date / Time No Known Allergies Allergy Verified 11/10/21 07:08 Family History Sister Diabetes Hypertension Father Hypertension Mother Cancer Surgical History History of adenoidectomy History of cholecystectomy History of tonsillectomy Social History Smoking Status: Never smoker alcohol intake: never substance use type: does not use what type of physical activity do you participate in: none ROS ROS ED Constitutional Constitutional ED: Reports malaise and weakness; Denies chills or fever(s) Eyes Eyes: Denies change in vision or diplopia ENT ENT ED: Denies rhinorrhea or sore throat Cardiovascular Cardiovascular: Denies chest pain or palpitations Respiratory/Chest Respiratory/Chest: Reports cough; Denies dyspnea Gastrointestinal Gastrointestinal: Denies abdominal pain, diarrhea, nausea or vomiting Genitourinary Genitourinary ED: Reports urinary frequency; Denies dysuria or hematuria Musculoskeletal Musculoskeletal: Reports as per HPI and extremity pain; Denies back pain or neck pain Integumentary Denies abscess or rash Neurologic Neurologic: Denies headache(s), paresthesias or weakness Psychiatric Psychiatric: Denies anxiety or suicidal thoughts Endocrine Endocrinology: Reports polydipsia and polyuria EXAM Physical Exam Const Vital Signs: 11/10/21 07:09 11/10/21 07:19 Temperature 99.4 F H Temperature Source Temporal Pulse Rate 90 Respiratory Rate 16 Respiratory Effort Normal Non-Labored Blood Pressure 135/57 H Blood Pressure Mean 83 Pulse Ox 94 Oxygen Delivery Method Room Air Positive well nourished, well developed and obese General Appearance ED: well developed and NAD Nutritional Appearance: obese HEENT Reports moist mucous membranes normocephalic and atraumatic Eyes PERRL and EOMs intact bilaterally Neck full ROM, no lymphadenopathy and supple Resp normal respiratory effort and clear to auscultation bilaterally Cardio regular rate, regular rhythm and no murmurs GI non-tender and non-distended Auscultation: normoactive bowel sounds Palpation: soft Back/Spine no CVA tenderness General Back: other FROM Extremity Extremity Narrative: Erythema on both lower extremities, asymmetric. Both areas warm and tender. Laterally left distal lower leg, stops at the ankle. Anteriorly and laterally right lower leg which also stops at the ankle. There is a small scabbed lesion at the lateral aspect of the erythema. No abscesses. No foot wounds. She is nontender in areas where there is no erythema. General Extremety ED: Yes edema and tenderness; Negative for pulses abnormal General Extremity: edema bilateral lower extremity Details: mild; Negative for pulses abnormal Neuro CN's II-XII intact bilaterally and no sensory deficits noted Neuro Narrative: Oriented to person and place, not to the year or the month Sensorium / Orientation: awake, alert and orientation impaired Motor Exam: strength 5/5 throughout Psych mental status grossly normal Skin no wounds Skin Narrative: Erythema warm and tender without induration or abscess both lower legs see above for details Sepsis Attestation Sepsis Attestation: Sepsis Ruled Out Date exam was performed: 11/10/21 Time exam was performed: 08:00 MDM MDM MDM Narrative Medical decision making narrative: Patient does have a new cough, but her leg redness on both sides appears to be cellulitis, and based on my exam that is the cause until proven otherwise. Given her symptoms, I also did a CT of the head, chest x-ray, COVID and influenza swabs she has not had any exposures to known illnesses including those that she knows of. All of those studies were negative. Blood cultures were obtained. She did have a low-grade temperature here which we monitored, in addition to a leukocytosis. Unasyn started for presumptive cellulitis as the source here. Mainly since she is so weak and unable to get around where as she was before, plan is for admission. We did treat her blood sugar with insulin in addition to the fluids. Lab Data Attestation: I reviewed the patient's lab results. Labs: Laboratory Results - last 24 hr 11/10/21 11/10/21 11/10/21 07:40 07:40 08:25 WBC 19.0 H RBC 3.82 L Hgb 11.7 L Hct 34.6 L MCV 90.6 MCH 30.6 MCHC 33.8 RDW Std Deviation 43.0 RDW Coeff of Bety 13.2 Plt Count 236 MPV 12.9 H Immature Gran % (Auto) 1.000 H Neut % (Auto) 87.8 H Lymph % (Auto) 4.8 L [place] % (Auto) 6.2 Eos % (Auto) 0.0 Baso % (Auto) 0.2 Absolute Neuts (auto) 16.7 H Absolute Lymphs (auto) 0.91 Nucleated RBC % 0 Sodium 135 L Potassium 4.4 Chloride 103 Carbon Dioxide 20.0 L Anion Gap 12 BUN 28 H Creatinine 1.36 H Estim Creat Clear Calc 31.34 Est GFR (MDRD) Af Amer 49 L Est GFR (MDRD) Non-Af 40 L BUN/Creatinine Ratio 20.6 H Glucose 482 H* Calcium 9.3 Troponin I High Sens 26 Urine Color Yellow Urine Clarity Clear Urine pH 5.0 Ur Specific [place] 1.010 Urine Protein Negative Urine Glucose (UA) 1000 H Urine Ketones 50 H Urine Occult Blood Negative Urine Nitrite Positive H Urine Bilirubin Negative Urine Urobilinogen Normal Ur Leukocyte Esterase Negative Urine RBC 0 SEEN Urine WBC 0 SEEN Ur Squamous Epith Cells 0-5 SEEN Urine Bacteria RARE Urine Mucus 0 SEEN Urine Yeast 1+ Radiography Chest X-Ray - ED: 1 View, Read by ED Physician, No Acute Disease and No Infiltrates Diagnostic Testing: Clinical Impression(s) from Imaging Studies Chest X-Ray 11/10/21 07:23 IMPRESSION: No radiographic evidence of acute cardiopulmonary disease. Electronically Signed: Peter Pascual MD at 8:13 EDT , Rhythm Strip Rhythm Strip: Sinus Rhythm Rate: 85 Ectopy: None EKG Initial EKG: Attestation: I personally reviewed and interpreted this EKG as follows: Interpretation: Sinus Rhythm, No Acute Injury Pattern and LAFB Prior EKG tracings: available for review Prior: Unchanged Discharge Plan Dx/Rx/DC Orders Clinical Impression: Cellulitis of both lower extremities, Hyperglycemia due to type 2 diabetes mellitus, Generalized weakness, Declining functional status, Delirium due to another medical condition Disposition Disposition: Acute Care [facility]
[2021-11-10 07:59] LABS: Absolute Lymphocyte Count 0.91 X10^3/uL (0.83-4.51); Absolute Neutrophil Count 16.7 X10^3/uL (2.0-7.7); Basophil# 0.04 X10^3/uL; Basophil% 0.2 % (0-1); Hematocrit 34.6 % (37-47); Hemoglobin 11.7 g/dL (12.0-15.0); Lymphocyte # 0.91 X10^3/ul (0.83-4.51); Lymphocyte % 4.8 % (19-41); Mean Corp Hgb Conc 33.8 g/dL (32-36); Mean Corpuscular Hgb 30.6 pg (27.0-32.0); Mean Corpuscular Volume 90.6 fL (81-99); Mean Platelet Vol. 12.9 fl (6.2-12.0); Monocyte# 1.17 X10^3/uL; Monocyte% 6.2 % (0-10); NRBC Flagged by Analyzer 0 % (0-5); Neutrophil # 16.65 X10^3/uL (2.7-7.7); Neutrophil % 87.8 % (47-70); Platelet Count 236 K/mm3 (150-450); RBC Distribution Width CV 13.2 % (11.6-14.6); Red Blood Count 3.82 M/mm3 (4.2-5.4)
[2021-11-10 08:19] LABS: Anion Gap 12 (5-15); BUN 28 mg/dL (7-18); BUN/Creat Ratio 20.6 RATIO (10-20); Calcium,Total 9.3 mg/dL (8.5-10.1); Chloride 103 mmol/L (98-107); Creatinine, Serum 1.36 mg/dL (0.55-1.02); EST Glomerular Filtration Rate 40 mL/min (>60); Est Glom Filt Rate - Afr Amer 49 mL/min (>60); Estimated Creatinine Clearance 31.34 ml/min; Glucose 482 mg/dL (74-106); Potassium 4.4 mmol/L (3.5-5.1); Sodium Level 135 mmol/L (136-145); Troponin-I HS 26 pg/mL (3.0-54.0)
[2021-11-10 08:36] LABS: Mucous, Urine 0 SEEN /hpf (<or=2+); Red Blood Cells-Urine 0 SEEN /hpf (0-5); White Blood Cells 0 SEEN /hpf (0-5)
[2021-11-10 08:39] LABS: Color, Urine Yellow (Yellow); Glucose, Dipstick 1000 mg/dl (Normal); Ketone-Dipstick 50 mg/dl (Negative); Leukocyte Esterase-Dipstick Negative /ul (Negative); Nitrite-Dipstick Positive (Negative); Occult Blood-Urine Negative /ul (Negative); Protein-Dipstick Negative (Negative); Urine Bilirubin Dipstick Negative (Negative); Urine Clarity Clear (Clear); Urine Urobilinogen Normal (Normal)
--- NOTE | 2021-11-10 08:39 | NURSING ---
HOSPITALIST FOR DR LARRY
--- NOTE | 2021-11-10 08:45 | HP.PCM.HOS_ITS ---
HPI - General General Date of Admission: 11/10/21 Date of Service: 11/10/21 Chief Complaint: Altered mental status, elevated blood sugar HPI Narrative LUC HODGES, is a 76 F who presents with the above. Patient is a known type II diabetic, poorly controlled, history of left plantar diabetic foot ulcer, follows with podiatry in the outpatient who comes in with confusion that was noted this morning. Patient lives at home with her daughter. She ambulates with a cane. She was found to be very weak and confused this morning. They checked her blood sugar that was elevated. She denied any fever or chills or cough or upper respiratory symptoms or dysuria or frequency. She denies any trauma to her extremities or remembering that she had any new wounds to her legs. At baseline, she is not confused. She is alert oriented x3. She ambulates with cane. She was found to be very weak this morning and confused. Vitals in the ED were stable. She has a low-grade temperature of 99.3F. WBC count is 19.0, neutrophilia, hemoglobin 11.7, platelet count 236. Sodium is 135, potassium 4.4, chloride 103, bicarbonate 20, BUN 28, creatinine 1.36, previous creatinine was 1.17. Admitting blood glucose 482. UA was unremarkable except for glucosuria. [facility] Medical History Delayed wound healing Diabetic ulcer of left foot with fat layer exposed Incomplete left bundle branch block Lesion of lumbar spine Spinal stenosis, lumbar SVT (supraventricular tachycardia) Type 2 diabetes mellitus Ulcer of right foot with fat layer exposed Vitreous hemorrhage of left eye Home Medications CuraLin See Rx Instructions .Route .COMPLEX supplement 08/10/19 [History Last Taken Unknown] sitagliptin 50 mg-metformin 1,000 mg tablet (Janumet) 1 tab PO DAILY #90 tabs 08/17/19 [Rx Last Taken Unknown] aspirin 81 mg chewable tablet (Margarita Chewable Low Dose Aspirin) 81 mg PO DAILY heart health 02/22/20 [History Last Taken Unknown] glipizide 5 mg tablet 5 mg PO DAILY #90 tabs 07/24/21 [Rx Last Taken Unknown] lisinopril 10 mg tablet 10 mg PO DAILY #90 tabs 07/26/21 [Rx Last Taken Unknown] propranolol 80 mg capsule,24 hr,extended release 80 mg PO DAILY #90 caps 07/29/21 [Rx Last Taken Unknown] Allergy/AdvReac Type Severity Reaction Status Date / Time No Known Allergies Allergy Verified 11/10/21 07:08 Family History Sister Diabetes Hypertension Father Hypertension Mother Cancer Surgical History History of adenoidectomy History of cholecystectomy History of tonsillectomy Social History Smoking Status: Never smoker alcohol intake: never substance use type: does not use what type of physical activity do you participate in: none ROS Review of Systems ROS Unobtainable: due to encephalopathy Vital Signs Vital Signs Vital Signs: 11/10/21 07:09 11/10/21 07:19 Temperature 99.4 F H Temperature Source Temporal Pulse Rate 90 Respiratory Rate 16 Respiratory Effort Normal Non-Labored Blood Pressure 135/57 H Blood Pressure Mean 83 Pulse Ox 94 Oxygen Delivery Method Room Air Weight Weight: 90.718 kg Body Mass Index (BMI) 34.3 Physical Exam Narrative Physical exam: General: Alert, Oriented x1, not oriented to place or time, Cooperative, obese HEENT: Atraumatic Oral: Moist Mucosa Neck: Supple Lungs: Diminished to auscultation Cardiovascular: HS I+II, regular, no murmurs Abdomen: Bowel Sounds Present, Soft, Non Tender Extremities: Right lower leg slightly swollen compared to left. Swelling is more in the right lateral and posterior aspect of the lower leg, new ulcer seen on the right fifth proximal and distal phalanx, tender, with an area of ulceration, slight slough, surrounding erythema of the whole proximal and distal phalanx. Skin: No rashes, No breakdown Neurological: Grossly intact Psych/Mental Status: Appropriate Results Lab / Micro Data Result Diagrams: 11/10/21 07:40 11/10/21 07:40 Labs: Laboratory Results - last 24 hr 11/10/21 07:40: WBC 19.0 H, RBC 3.82 L, Hgb 11.7 L, Hct 34.6 L, MCV 90.6, MCH 30.6, MCHC 33.8, RDW Std Deviation 43.0, RDW Coeff of Bety 13.2, Plt Count 236, MPV 12.9 H, Immature Gran % (Auto) 1.000 H, Neut % (Auto) 87.8 H, Lymph % (Auto) 4.8 L, Rock % (Auto) 6.2, Eos % (Auto) 0.0, Baso % (Auto) 0.2, Absolute Neuts (auto) 16.7 H, Absolute Lymphs (auto) 0.91, Nucleated RBC % 0 11/10/21 07:40: Sodium 135 L, Potassium 4.4, Chloride 103, Carbon Dioxide 20.0 L , Anion Gap 12, BUN 28 H, Creatinine 1.36 H, Estim Creat Clear Calc 31.34, Est GFR (MDRD) Af Amer 49 L, Est GFR (MDRD) Non-Af 40 L, BUN/Creatinine Ratio 20.6 H , Glucose 482 H*, Calcium 9.3, Troponin I High Sens 26 11/10/21 08:25: Urine Color Yellow, Urine Clarity Clear, Urine pH 5.0, Ur Specific Daniel 1.010, Urine Protein Negative, Urine Glucose (UA) 1000 H, Urine Ketones 50 H, Urine Occult Blood Negative, Urine Nitrite Positive H, Urine Bilirubin Negative, Urine Urobilinogen Normal, Ur Leukocyte Esterase Negative Micro: Microbiology 11/10/21 07:40 Nasal Secretion SARS-CoV-2 & FLU Antigen (Rapid) - Final Rhythm Strip Rhythm Strip: Sinus Rhythm Rate: 85 Ectopy: None Radiology Impression Chest X-Ray 11/10/21 07:23 IMPRESSION: No radiographic evidence of acute cardiopulmonary disease. Electronically Signed: Peter Pascual MD at 8:13 EDT , Assessment & Plan Assessment/Plan (1) Hyperglycemia due to type 2 diabetes mellitus: PLAN: Plan 1. Acute metabolic encephalopathy secondary to hyperglycemia Suspected cognitive impairment/dementia at baseline We will continue to monitor mentation with treatment 2. Hyperglycemia in a known type II diabetic with diabetic polyneuropathy, history of noncompliance Last HbA1c was 10.5 in July 2021, will check HbA1c Hold oral hypoglycemic agents Continue blood glucose checks and insulin sliding scale 3. Right 5th toe cellulitis and ulcer, patient denies any history of trauma History of right anterior tibial artery balloon angioplasty by vascular surgery Will continue on cefazolin, get x-ray of the foot Podiatry consult 4. Hypertension, continue lisinopril, propranolol Continue to monitor vitals 5. CKD stage IIIa, admitting Cr is 1.36, Baseline Cr 1.1 Repeat labs in am 6. Obesity, complicates care and recovery 7. Debility, acute on chronic, likely related to 1 and 2 PT and OT to evaluate and treat 8. DVT prophylaxis Heparin subcu I discussed and explained in details the various types of CODE STATUS-full code, DNR CCA, DNR CC. Patient's daughter at bedside said patient would not like to be kept alive on life support or undergo aggressive cardiopulmonary re suscitation. Time spent discussing CODE STATUS 17 minutes Charges/Coding Visit Charges Inpatient E&M: 49701 Init Hosp L3 Procedures Hospitalists Procedures: 36444 Advncd Care Plan 30 Min
[2021-11-10 08:47] LABS: Bacteria RARE /hpf (None Seen); Squamous Epithelial Cells - UA 0-5 SEEN /hpf (5-10); Yeast-Urine 1+ /hpf (None Seen)
[2021-11-10 08:53] VITALS: BP 128/53; PULSE 81; RESP 18; TEMP 37.6; O2SAT 93
[2021-11-10] MEDS: Insulin Lispro 100 UNIT/ML INSULN.PEN 14 UNIT SC (08:54)
--- NOTE | 2021-11-10 08:55 | NURSING ---
MED SURG [facility] DELIRIUM, CELLULITIS, FUNCTIONAL DECLINE, HYPERGLYCEMIA
[2021-11-10 09:05] VITALS: BP 128/53; PULSE 81; RESP 18; TEMP 37.6; O2SAT 93
[2021-11-10 10:08] VITALS: BP 120/53; PULSE 79; RESP 18; TEMP 37.4; O2SAT 95
[2021-11-10 10:11] VITALS: BMI 37.3
[2021-11-10] MEDS: Propranolol LA 80 MG Capsule PO (10:47)
[2021-11-10] MEDS: 0.9% Normal Saline 1,000 ML 150 ML IV ×2 (10:47→21:29)
--- NOTE | 2021-11-10 11:00 | RAD_ITS ---
EXAM: XR RIGHT FOOT COMPLETE, 3 OR MORE VIEWS CLINICAL INDICATION: Right foot ulcer TECHNIQUE: Frontal, lateral and oblique views of the right foot. This report was created using [employer] report generation technology. COMPARISON: None. FINDINGS: BONES/JOINTS: Unremarkable. No acute fracture. No subluxation. Normal alignment. Preservation of the joint space. No sclerotic or destructive changes observed. SOFT TISSUES: Unremarkable. No soft tissue swelling or gas. No radiopaque foreign body. RAD/Foot min 3 Views IMPRESSION: Negative right foot x-rays. Electronically Signed: Peter Pascual MD at 13:02 EDT ,
[2021-11-10] MEDS: Insulin Lispro 100 UNIT/ML INSULN.PEN SC ×3 (11:31→21:47)
[2021-11-10 12:00] LABS: Bedside Glucose 443 mg/dL (74-106)
--- NOTE | 2021-11-10 12:06 | CON.PCM_ITS ---
Assessment & Plan Assessment/Plan (1) Cellulitis of right lower limb: (2) Chronic ulcer of great toe of right foot with necrosis of muscle: (3) Diabetes mellitus with diabetic polyneuropathy: (4) Type 2 diabetes mellitus with foot ulcer: PLAN: Plan Evaluation performed. Reviewed diagnotic data. WBC elevated, clinically there is ulceration right 5th toe - probes close to bone. There is surrounding cellulit is. Right foot xrays have been ordered and pending at this time. A culture was obtained of the ulceration right 5th toe and sent to microbiology. Patient on Cefazolin at this time. Patient with hx of LE PVD - new LEAS were ordered. Right 5th toe ulceration was debrided in excisional fashion using a 15 blade, post debridement ulceration measured 3mm x 5mm and 1.5mm in depth. No anesthesia was needed due to patient's neuropathy. Hemostasis was obtained with pressure and gauze. Applied betadine soln, and gauze dressing - change daily. Keep offloaded. Podiatry will continue to follow. Thank you for consultation. HPI Consult Data Date of Consult: 11/10/21 HPI Narrative Reason for Consultation: right 5th toe ulcer HPI Narrative: LUC HODGES, is a 76 F who presents for right foot/leg infection, she has ulceration right 5th toe. She presented to ER today for hyperglycemia and confusion - she was admitted. WBC elevated. She has been started on IV antibiotic. She is here with her family. She follows [facility]. Patient is resting in bed. Temp is 99.3F at this time. Patient with history of diabetes, as well as PVD, she has had previous vacular intervention with Dr. Fry. Patient has had other wounds to feet in the past. [facility] Medical History Delayed wound healing Diabetic ulcer of left foot with fat layer exposed Incomplete left bundle branch block Lesion of lumbar spine Spinal stenosis, lumbar SVT (supraventricular tachycardia) Type 2 diabetes mellitus Ulcer of right foot with fat layer exposed Vitreous hemorrhage of left eye Home Medications CuraLin See Rx Instructions .Route .COMPLEX supplement 08/10/19 [History Last Taken Unknown] sitagliptin 50 mg-metformin 1,000 mg tablet (Janumet) 1 tab PO DAILY #90 tabs 08/17/19 [Rx Last Taken Unknown] aspirin 81 mg chewable tablet (Margarita Chewable Low Dose Aspirin) 81 mg PO DAILY heart health 02/22/20 [History Last Taken Unknown] glipizide 5 mg tablet 5 mg PO DAILY #90 tabs 07/24/21 [Rx Last Taken Unknown] lisinopril 10 mg tablet 10 mg PO DAILY #90 tabs 07/26/21 [Rx Last Taken Unknown] propranolol 80 mg capsule,24 hr,extended release 80 mg PO DAILY #90 caps 07/29/21 [Rx Last Taken Unknown] Allergy/AdvReac Type Severity Reaction Status Date / Time No Known Allergies Allergy Verified 11/10/21 07:08 Family History Sister Diabetes Hypertension Father Hypertension Mother Cancer Surgical History History of adenoidectomy History of cholecystectomy History of tonsillectomy Social History Smoking Status: Never smoker alcohol intake: never substance use type: does not use what type of physical activity do you participate in: none Physical Exam Narrative Right foot with noted ulceration to the dorsal lateral 5th toe over PIPJ with surrounding cellulitis extending to dorsal foot and to leg, ulceration with overlying nonviable tissue and down to tendon, measures 2mm x 4mm prior to debridement; there is no evidence of acute ischemia present, no pain present, no evidence of acute charcot neuroarthropathy. There is some edema to the foot. Decreased sensation c/w peripheral neuropathy. Left foot with no ulcerations or break down, no evidence of acute ischemia, no pain, no evidence of acute charcot neuroarthropathy. Const alert and no apparent distress Lab / Micro Data Result Diagrams: 11/10/21 07:40 11/10/21 07:40 Labs: Laboratory Results - last 24 hr 11/10/21 07:40: WBC 19.0 H, RBC 3.82 L, Hgb 11.7 L, Hct 34.6 L, MCV 90.6, MCH 30.6, MCHC 33.8, RDW Std Deviation 43.0, RDW Coeff of Bety 13.2, Plt Count 236, MPV 12.9 H, Immature Gran % (Auto) 1.000 H, Neut % (Auto) 87.8 H, Lymph % (Auto) 4.8 L, [place] % (Auto) 6.2, Eos % (Auto) 0.0, Baso % (Auto) 0.2, Absolute Neuts (auto) 16.7 H, Absolute Lymphs (auto) 0.91, Nucleated RBC % 0 11/10/21 07:40: Sodium 135 L, Potassium 4.4, Chloride 103, Carbon Dioxide 20.0 L , Anion Gap 12, BUN 28 H, Creatinine 1.36 H, Estim Creat Clear Calc 31.34, Est GFR (MDRD) Af Amer 49 L, Est GFR (MDRD) Non-Af 40 L, BUN/Creatinine Ratio 20.6 H , Glucose 482 H*, Calcium 9.3, Troponin I High Sens 26 11/10/21 08:25: Urine Color Yellow, Urine Clarity Clear, Urine pH 5.0, Ur Specific [place] 1.010, Urine Protein Negative, Urine Glucose (UA) 1000 H, Urine Ketones 50 H, Urine Occult Blood Negative, Urine Nitrite Positive H, Urine Bilirubin Negative, Urine Urobilinogen Normal, Ur Leukocyte Esterase Negative, Urine RBC 0 SEEN, Urine WBC 0 SEEN, Ur Squamous Epith Cells 0-5 SEEN, Urine Bacteria RARE, Urine Mucus 0 SEEN, Urine Yeast 1+ 11/10/21 11:26: POC Glucose 443 H Micro: Microbiology 11/10/21 07:40 Nasal Secretion SARS-CoV-2 & FLU Antigen (Rapid) - Final Rhythm Strip Rhythm Strip: Sinus Rhythm Rate: 85 Ectopy: None Radiology Impression Brain CT 11/10/21 07:23 IMPRESSION: Negative head/brain CT without intravenous contrast. Electronically Signed: Peter Pascual MD at 8:54 EDT , Chest X-Ray 11/10/21 07:23 IMPRESSION: No radiographic evidence of acute cardiopulmonary disease. Electronically Signed: Peter Pascual MD at 8:13 EDT ,
--- NOTE | 2021-11-10 12:22 | ART_ITS ---
Reason For Study: ULCERATION Procedure A bilateral lower extremity continuous wave Doppler with analog waveform analysis,segmental pressures,and ankle brachial indexes without exercise. Left Segmental Pressures Left brachial= 144mmHg. Left posterior tibial artery = 119mmHg. Left dorsalis pedis artery = 201mmHg. Left digit = 160 mmHg. The left dorsalis pedis waveforms are biphasic. The left posterior tibial artery waveforms are monophasic. Right Segmental Pressures Right posterior tibial artery = 88mmHg. Right dorsalis pedis artery = 146mmHg. Right digit = 44 mmHg. The right dorsalis pedis waveforms are biphasic. The right posterior tibial artery waveforms are monophasic. Indices The right ankle brachial index by the dorsalis pedis is 1.01. The right ankle brachial index by the posterior tibial artery is 0.61. The right digital-brachial index is 0.31. The left ankle brachial index by the dorsalis pedis is 1.40. The left ankle brachial index by the posterior tibial artery is 0.83. The left digital-brachial index is 1.11. VL/Lower Ext Art Exam w/o Exercis Interpretation Summary Bilateral no significant occlussive disease at rest with bilateral biphasic katie w and KYM 1.01 and 1.4. Right small vessel disease with DBI 0.31. Ordering Physician: Jonah Corona Referring Physician: Ej Lambert M.D. Performed By: CARLOS MANUEL HALL Alice
[2021-11-10 14:48] LABS: Erythrocyte Sedimentation Rate 20 mm/hr (0-30)
[2021-11-10] MEDS: Cefazolin 2 GM in 0.9% Normal Saline 100 ML IV ×2 (14:57→21:35)
[2021-11-10] MEDS: Heparin Injection (Vial) 5,000 UNIT/ML VIAL 5000 UNIT SC ×2 (14:57→21:49)
[2021-11-10 16:30] LABS: Probe Check PASS; Staph aureus DNA By PCR POSITIVE (Negative)
[2021-11-10 16:31] LABS: M R Staph aureus DNA By PCR POSITIVE (Negative)
[2021-11-10 17:26] VITALS: BP 124/46; PULSE 79; RESP 16; TEMP 37.9; O2SAT 96
[2021-11-10 17:41] LABS: Bedside Glucose 339 mg/dL (74-106)
--- NOTE | 2021-11-10 18:28 | PCM.RX.CS ---
Consult Pharmacy has been consulted to manage selected antiobiotic: Vancomycin Type of Consult: New start Suspected Infection: Skin/Soft tissue Labs: Sodium 135 mmol/L (136-145) L 11/10/21 07:40 Potassium 4.4 mmol/L (3.5-5.1) 11/10/21 07:40 Chloride 103 mmol/L (98-107) 11/10/21 07:40 Carbon Dioxide 20.0 mmol/L (21.0-32.0) L 11/10/21 07:40 Anion Gap 12 (5-15) 11/10/21 07:40 BUN 28 mg/dL (7-18) H 11/10/21 07:40 Creatinine 1.36 mg/dL (0.55-1.02) H 11/10/21 07:40 Est GFR (MDRD) Af Amer 49 mL/min (>60) L 11/10/21 07:40 Est GFR (MDRD) Non-Af 40 mL/min (>60) L 11/10/21 07:40 BUN/Creatinine Ratio 20.6 RATIO (10-20) H 11/10/21 07:40 Glucose 482 mg/dL (74-106) H* 11/10/21 07:40 Microbiology: Microbiology 11/10/21 12:20 Wound - Toe Gram Stain - Final 11/10/21 07:40 Nasal Secretion SARS-CoV-2 & FLU Antigen (Rapid) - Final Goal Trough: 15-20 mcg/mL Pharmacy Plan for Drug Dosing: NEW START IV VANCOMYCIN Consulting Physician: Dr. Mahajan Indication: SSTI Goal Trough: 15-20 SrCr: 1.36 CrCl: 41 mL/min (using AdjBW) Comments: 1500mg IV x1 initial dose ordered and administered 11/10/21 @1810 Vancomycin Dose: 750mg IV Q12hr to start 11/11/21 @0600 Pending Level: 11/12/21 @0530, prior to 4th total vancomycin dose per protocol Pharmacy Service will continue to monitor and adjust dosing as required.
[2021-11-10] MEDS: Menthol/Lanolin/Calamine/Znox 113 GM Tube 1 APPLIC TOPICAL (21:37)
[2021-11-10 22:50] LABS: Bedside Glucose 278 mg/dL (74-106)
[2021-11-10 23:00] VITALS: BP 120/53; PULSE 74; RESP 16; TEMP 37.4; O2SAT 96
[2021-11-11] VITALS (7 sets, daily range): BP systolic 112–130; BP diastolic 45–67; PULSE 64–72; RESP 18; TEMP 37.1–37.7; O2SAT 93–97
[2021-11-11] MEDS: 0.9% Normal Saline 1,000 ML 150 ML IV (04:56)
[2021-11-11] MEDS: Cefazolin 2 GM in 0.9% Normal Saline 100 ML IV (04:58)
[2021-11-11 05:30] LABS: Absolute Lymphocyte Count 2.02 X10^3/uL (0.83-4.51); Absolute Neutrophil Count 7.5 X10^3/uL (2.0-7.7); Basophil# 0.03 X10^3/uL; Basophil% 0.3 % (0-1); Eosinophil# 0.02 X10^3/uL; Eosinophils% 0.2 % (0-5); Hematocrit 32.8 % (37-47); Hemoglobin 10.4 g/dL (12.0-15.0); Lymphocyte # 2.02 X10^3/ul (0.83-4.51); Lymphocyte % 19.4 % (19-41); Mean Corp Hgb Conc 31.7 g/dL (32-36); Mean Corpuscular Hgb 29.5 pg (27.0-32.0); Mean Corpuscular Volume 92.9 fL (81-99); Monocyte# 0.78 X10^3/uL; Monocyte% 7.5 % (0-10); NRBC Flagged by Analyzer 0 % (0-5); Neutrophil # 7.51 X10^3/uL (2.7-7.7); Neutrophil % 72.2 % (47-70); Platelet Count 199 K/mm3 (150-450); RBC Distribution Width CV 13.3 % (11.6-14.6); RBC Distribution Width SD 45.7 fl (35.1-43.9); Red Blood Count 3.53 M/mm3 (4.2-5.4); White Blood Count 10.4 K/mm3 (4.4-11.0)
[2021-11-11] MEDS: Insulin Lispro 100 UNIT/ML INSULN.PEN SC ×6 (06:17→20:57)
[2021-11-11] MEDS: Heparin Injection (Vial) 5,000 UNIT/ML VIAL 5000 UNIT SC ×3 (06:19→20:59)
[2021-11-11 06:36] LABS: ALB/GLOB Ratio 0.7 RATIO (0.9-2.4); AST(SGOT) 12 U/L (15-37); Alanine Aminotransfer ALT/SGPT 11 U/L (13-56); Albumin, Serum 2.4 g/dL (3.2-5.0); Alkaline Phosphatase 44 U/L (45-117); Anion Gap 10 (5-15); BUN 17 mg/dL (7-18); BUN/Creat Ratio 16.5 RATIO (10-20); Calcium,Total 8.2 mg/dL (8.5-10.1); Chloride 109 mmol/L (98-107); Creatinine, Serum 1.03 mg/dL (0.55-1.02); EST Glomerular Filtration Rate 56 mL/min (>60); Est Glom Filt Rate - Afr Amer 67 mL/min (>60); Estimated Creatinine Clearance 41.38 ml/min; Globulin 3.5 g/dL (2.2-4.2); Glucose 278 mg/dL (74-106); Potassium 3.5 mmol/L (3.5-5.1); Protein, Total 5.9 g/dL (6.4-8.2); Sodium Level 139 mmol/L (136-145)
[2021-11-11 06:46] LABS: Bedside Glucose 245 mg/dL (74-106)
--- NOTE | 2021-11-11 08:00 | MRI_ITS ---
HISTORY: osteomyelitis right 5th toe. TECHNIQUE: Multiplanar and multisequence MR images of the RIGHT foot were obtained without contrast. 203 images. COMPARISON: XR prior day FINDINGS: BONE: Moderate bone marrow edema of the fifth proximal phalangeal head with mild cortical indistinctness. Mild bone marrow edema base of the middle phalanx without cortical erosion. Mild bone marrow edema at the base of the fourth proximal phalanx without confluent T1 signal abnormality. JOINTS: No significant joint effusion. Mild degenerative change with chondral loss, small osteophytes, and small chronic cystic change/erosions. Normal forefoot alignment. LIGAMENTS: Intact Lisfranc ligament. TENDONS: No significant flexor or extensor tenosynovitis. SOFT TISSUES: Small ulceration or wound of the fifth toe with soft tissue edema involving the foot and fifth toe. No drainable fluid collection identified. MRI/Lower Ext/No Jt/w/o IMPRESSION: Small ulceration or wound of the right fifth toe with moderate bone marrow edema of the adjacent proximal phalangeal head, possible osteomyelitis. Soft tissue swelling of the foot and right fifth toe. Mild bone marrow edema of the fourth proximal phalanx and fifth middle phalanx without cortical erosion. Electronically Signed: Angelica Dias MD at 10:02 EDT ,
[2021-11-11] MEDS: Propranolol LA 80 MG Capsule PO (10:29)
[2021-11-11] MEDS: Menthol/Lanolin/Calamine/Znox 113 GM Tube 1 APPLIC TOPICAL ×2 (10:29→21:00)
[2021-11-11] MEDS: Aspirin 81 MG TAB.CHEW PO (10:29)
[2021-11-11] MEDS: Insulin Glargine-YFGN 100 UNIT/ML Pen 20 UNIT SC (10:38)
--- NOTE | 2021-11-11 11:39 | WOUNDNOTE ---
wound photo: right 5th toe
--- NOTE | 2021-11-11 11:39 | WOUNDNOTE ---
skin photo: right lower leg
[2021-11-11 11:40] LABS: Bedside Glucose 352 mg/dL (74-106)
--- NOTE | 2021-11-11 13:03 | PN.HOSP_ITS ---
Subjective Subjective Reports that she was hoping to go home today. Just got back from MRI. I discussed with her the marked elevation of her blood sugars and poor glycemic control. Her A1c was found to be 11 and she is only on orals at home. Per previous documentation at her primary care physician's office it appears that they requested her to try injectables however she was reluctant. I did discuss the need for this today and she seemed receptive to trying injectables at this time. She understands that we have to wait to see what the MRI shows with regards to infection and what podiatry is overall plan will be prior to disc harge. I did indicate that the earliest that she could potentially be discharged would be tomorrow and that was only if podiatry did not need to perform any surgical intervention. Daughter is at the bedside and voiced understanding as well. Objective Data Objective Data Vital Signs: Vital Signs Temp Pulse Resp BP Pulse Ox O2 Del Method 98.8 F 66 18 116/67 95 Room Air 11/11/21 07:53 11/11/21 07:53 11/11/21 07:53 11/11/21 07:53 11/11/21 07:56 11/11/21 07:56 Oxygen Delivery Method Room Air Weight: 98.8 kg Body Mass Index (BMI) 37.3 Intake & Output: Intake and Output for Last 24 Hours 11/09/21 11/10/21 11/11/21 23:59 23:59 23:59 Intake Total 3112.0 / 3112.0 1740 / 1740 Output Total 1300 / 1300 150 / 150 Balance 1812.0 / 1812.0 1590 / 1590 Lab / Micro Data Result Diagrams: 11/11/21 05:14 11/11/21 05:14 Labs: Laboratory Results - last 24 hr 11/10/21 07:40: Hemoglobin A1c 11.0 H 11/10/21 12:20: S.aureus Protein A PCR Cancelled, MRSA (PCR) Cancelled 11/10/21 14:33: ESR 20 11/10/21 14:33: C-React Prot Ext Range 132.00 H 11/10/21 14:50: S.aureus Protein A PCR POSITIVE H, MRSA (PCR) POSITIVE H 11/10/21 17:18: POC Glucose 339 H 11/10/21 21:45: POC Glucose 278 H 11/11/21 05:14: WBC 10.4, RBC 3.53 L, Hgb 10.4 L, Hct 32.8 L, MCV 92.9, MCH 29.5, MCHC 31.7 L D, RDW Std Deviation 45.7 H, RDW Coeff of Bety 13.3, Plt Count 199, MPV 13.0 H, Immature Gran % (Auto) 0.400, Neut % (Auto) 72.2 H, Lymph % (Auto) 19.4, [place] % (Auto) 7.5, Eos % (Auto) 0.2, Baso % (Auto) 0.3, Absolute Neuts (auto) 7.5, Absolute Lymphs (auto) 2.02, Nucleated RBC % 0 11/11/21 05:14: Sodium 139, Potassium 3.5, Chloride 109 H, Carbon Dioxide 20.0 L , Anion Gap 10, BUN 17, Creatinine 1.03 H, Estim Creat Clear Calc 41.38, Est GFR (MDRD) Af Amer 67, Est GFR (MDRD) Non-Af 56 L, BUN/Creatinine Ratio 16.5, Glucose 278 H, Calcium 8.2 L, Total Bilirubin 0.30, AST 12 L, ALT 11 L, Alkaline Phosphatase 44 L, Total Protein 5.9 L, Albumin 2.4 L, Globulin 3.5, Albumin/Globulin Ratio 0.7 L 11/11/21 06:15: POC Glucose 245 H 11/11/21 11:10: POC Glucose 352 H Micro: Microbiology 11/10/21 12:20 Wound - Toe Gram Stain - Final 11/10/21 12:20 Wound - Toe Wound Culture - Preliminary Mixed Gram Pos & Gram Neg Org 11/10/21 07:40 Nasal Secretion SARS-CoV-2 & FLU Antigen (Rapid) - Final Radiography Diagnostic Testing: Radiology Impression Foot X-Ray 11/10/21 11:00 IMPRESSION: Negative right foot x-rays. Electronically Signed: Peter Pascual MD at 13:02 EDT , Lower Extremity MRI 11/11/21 08:00 IMPRESSION: Small ulceration or wound of the right fifth toe with moderate bone marrow edema of the adjacent proximal phalangeal head, possible osteomyelitis. Soft tissue swelling of the foot and right fifth toe. Mild bone marrow edema of the fourth proximal phalanx and fifth middle phalanx without cortical erosion. Electronically Signed: Angelica Dias MD at 10:02 EDT Reading Location ID and State: [facility] / [place] Tel , Service support , Rhythm Strip Rhythm Strip: Sinus Rhythm Rate: 85 Ectopy: None Physical Exam Const alert, oriented x3, no apparent distress and well nourished Constitutional Narrative: Older obese, white female sitting up in bed, daughter at bedside, patient is eating breakfast and appears comfortable, nontoxic HEENT head/scalp atraumatic and moist oral mucous membranes HEENT Narrative: Dentition is poor, Mallampati is 3, no thrush Head and Scalp: normocephalic Resp normal respiratory effort, no retractions, no use of accessory muscles and clear to auscultation bilaterally Resp Narrative: Distant secondary to body habitus Auscultation: Negative for crackles, rales, rhonchi or wheezes Cardio regular rate, regular rhythm, S1 normal heart sound, S2 normal heart sound, no murmurs, no rub, no gallops, no clicks and no JVD GI normal to inspection, nondistended, normoactive bowel sounds, soft to palpation and non-tender Extremity no clubbing, cyanosis or edema Extremity Narrative: Pedal pulses diminished 1+ bilaterally Skin skin turgor normal, no jaundice, no petechiae and no mottling Skin Narrative: Right distal lower extremity with dressing in place-images reviewed, outlined area on anterior lateral right distal lower extremity with decreased erythema, no tenderness or increase tissue temperature Neuro oriented x3, moves all extremities, no focal motor deficits and No no sensory deficits noted Neuro Narrative: Decree sensation bilateral distal lower extremities Speech: speech normal Assessment & Plan Assessment/Plan (1) Osteomyelitis: (2) Open wound of fifth toe of right foot: PLAN: Plan Right wound fifth digit with suspected osteomyelitis -MRI from today shows small ulceration of the right fifth toe with moderate bone marrow edema of the adjacent proximal phalangeal head and soft tissue swelling of the foot and right fifth digit with bone marrow edema of the fourth proximal phalanx and fifth middle phalanx without cortical erosion -Continue broad-spectrum antibiotics but transition from Ancef to Zosyn for pseudomonal coverage since the wound is on her foot -Continue vancomycin -Wound cultures pending and currently showing mixed gram-positive and gram- negative growth -Blood cultures pending -Debridement performed on 11/10/2021 -Continue to offload area -Await podiatry input for decision on surgical intervention DM-2 uncontrolled -A1c was found to be 11.0 -Patient is on oral agents only as she has previously been reluctant to use injectables -Patient now agreeable to insulin next and will discontinue the glipizide and sitagliptin at discharge -We will likely continue metformin -Start basal insulin at 20 units daily starting this morning -Start lispro 5 units 3 times daily with meals -Continue sliding scale -Continue Accu-Cheks as ordered -Patient education ordered for insulin use instruction -Discussed with case management on geriatric personal care aide at discharge for injectables Diabetic neuropathy -Patient is not on any medication at baseline -Denies need for any gabapentin or Lyrica at this time -Continue to monitor -Encouraged white socks after discharge and daily foot inspections Hypertension -Continue lisinopril 10 mg daily -Continue propranolol 80 mg daily Diabetic retinopathy -Continue outpatient follow-up -History of vitreous hemorrhage Peripheral vascular disease -Continue aspirin -May need vascular input but will await podiatry requests -May need to consider adding Plavix but await podiatry recommendations -KYM from 12/29/2020 showed noncompressibility of the dorsalis pedis with an KYM of 0.53 and the posterior tibial having biphasic flow History of SVT -Continue propranolol -It was felt that this was likely induced by dobutamine on a stress test -Continue outpatient follow-up as needed CKD stage II -Baseline serum creatinine appears to be between 1 and 1.2 -Current serum creatinine 1.03 -Avoid nephrotoxins -Continue to monitor especially with antibiotic use Chronic normocytic anemia -Mild -Counts are stable -Monitor Obesity -Recommend weight loss -Complicates treatment, prognosis, outcomes DVT prophylaxis -Continue subcu heparin CODE STATUS -DNR CCA without intubation Charges/Coding Visit Charges Inpatient E&M: 44311 Subs Hosp L2
--- NOTE | 2021-11-11 13:30 | CASEMGMT ---
FRANTZ ZIMMERMAN Assessment: Face to Face with pt for initial transition planning/care coordination assessment. RN ELSIE introduced self and role at [facility], pt voices understanding and consents to assessment. Pt is A/O x4 and answers all questions appropriately at this time. Pt sitting up in chair and dtr Ashli at bedside. Care providers, pharmacy, and demographics verified/updated. Admitting Dx: hyperglycemia, cellulitis PCP:Fausto Specialists:deandra Barclay Preferred Pharmacy: [facility] Retail Insurance: AA Prescription Benefit: no, discussed insulin that will be prescribed upon dc per hospitalist. Provided pt with a resource packet made up by [facility] on rx assistance. CM to follow to use [facility] assistance and discussed with patient and dtr. They are aware this is a one time/year program and arrangements will need to be made for refills. LW/HPOA: Pt denies having a LW/DPOA and denies need for info regarding AD. LNOK: Pao Lovelace, dtr; Jose Lopez, gui Living Arrangements: Pt lives with 3 dtrs and a son in a two story house with 2 steps to enter. Pt reports she lives on the main level and dtr's assist her into the home. Pt reports she is I in ADL's at home. Transportation: Pt hires drivers for transportation. DME/HHC/SNF: Pt has a functional BGM with sufficient supplies. Dtr states pt other dtrs check her blood sugar daily. Pt states she has had insulin in the past and knows how to inject it. Discussed HHC with patient for diabetic education as her blood sugars have been high as well as wound monitoring. Pt declines need for this. Pt states her dtrs dress her wound as well without difficulty. Pt has a cane, standard walker and a FWW. Pt denies hx of HHC or SNF stays. Pt states no concerns with going home at time of dc. Pt states no further concerns/needs. Pt dtr is agreeable with plan for pt to return home without any services. CM to follow. Advised pt to ask CM if any further question/concerns/needs arise, voices understanding. Pt Goal: Home Plan: Home, follow for Rx assistance at dc.
[2021-11-11] MEDS: 0.9% Saline Lock 10 ML Syringe IV ×2 (13:47→21:04)
[2021-11-11] MEDS: Juven (unflavored) Packet 1 PACKET PO (16:54)
[2021-11-11 17:26] LABS: Bedside Glucose 388 mg/dL (74-106)
--- NOTE | 2021-11-11 18:39 | PN_ITS ---
Subjective Subjective This is a 76-year-old female seen bedside today resting comfortably with her daughter present. She is seen for wound of the fifth toe of the right foot with clinical suspicion for osteomyelitis. She does report improvement in the redness in her legs and is currently on IV antibiotics. She has DM type II and has been started on insulin during her stay. She denies any constitutional symptoms. She has no further complaints today. Objective Data Objective Data Vital Signs: Vital Signs Temp Pulse Resp BP Pulse Ox O2 Del Method 98.8 F 64 18 114/53 L 97 Room Air 11/11/21 13:32 11/11/21 13:32 11/11/21 13:32 11/11/21 13:32 11/11/21 13:32 11/11/21 13:32 Oxygen Delivery Method Room Air Weight: 98.8 kg Body Mass Index (BMI) 37.3 Intake & Output: Intake and Output for Last 24 Hours 11/09/21 11/10/21 11/11/21 23:59 23:59 23:59 Intake Total 3112.0 / 3112.0 1790 / 1790 Output Total 1300 / 1300 150 / 150 Balance 1812.0 / 1812.0 1640 / 1640 Lab / Micro Data Result Diagrams: 11/12/21 05:35 11/12/21 05:35 Labs: Laboratory Results - last 24 hr 11/10/21 21:45: POC Glucose 278 H 11/11/21 05:14: WBC 10.4, RBC 3.53 L, Hgb 10.4 L, Hct 32.8 L, MCV 92.9, MCH 29.5, MCHC 31.7 L D, RDW Std Deviation 45.7 H, RDW Coeff of Bety 13.3, Plt Count 199, MPV 13.0 H, Immature Gran % (Auto) 0.400, Neut % (Auto) 72.2 H, Lymph % (Auto) 19.4, [place] % (Auto) 7.5, Eos % (Auto) 0.2, Baso % (Auto) 0.3, Absolute Neuts (auto) 7.5, Absolute Lymphs (auto) 2.02, Nucleated RBC % 0 11/11/21 05:14: Sodium 139, Potassium 3.5, Chloride 109 H, Carbon Dioxide 20.0 L , Anion Gap 10, BUN 17, Creatinine 1.03 H, Estim Creat Clear Calc 41.38, Est GFR (MDRD) Af Amer 67, Est GFR (MDRD) Non-Af 56 L, BUN/Creatinine Ratio 16.5, Glucose 278 H, Calcium 8.2 L, Total Bilirubin 0.30, AST 12 L, ALT 11 L, Alkaline Phosphatase 44 L, Total Protein 5.9 L, Albumin 2.4 L, Globulin 3.5, Albumin/Globulin Ratio 0.7 L 11/11/21 06:15: POC Glucose 245 H 11/11/21 11:10: POC Glucose 352 H 11/11/21 16:52: POC Glucose 388 H Micro: Microbiology 11/10/21 12:20 Wound - Toe Gram Stain - Final 11/10/21 12:20 Wound - Toe Wound Culture - Preliminary Mixed Gram Pos & Gram Neg Org 11/10/21 07:40 Nasal Secretion SARS-CoV-2 & FLU Antigen (Rapid) - Final Radiography Diagnostic Testing: Radiology Impression Lower Extremity MRI 11/11/21 08:00 IMPRESSION: Small ulceration or wound of the right fifth toe with moderate bone marrow edema of the adjacent proximal phalangeal head, possible osteomyelitis. Soft tissue swelling of the foot and right fifth toe. Mild bone marrow edema of the fourth proximal phalanx and fifth middle phalanx without cortical erosion. Electronically Signed: Angelica Dias MD at 10:02 EDT Reading Location ID and State: [facility] / [place] Tel , Service support , Rhythm Strip Rhythm Strip: Sinus Rhythm Rate: 85 Ectopy: None Physical Exam Narrative Right foot with noted ulceration to the dorsal lateral 5th toe over PIPJ with surrounding cellulitis extending to dorsal foot and to leg, ulceration with overlying nonviable tissue and down to tendon, measures 2mm x 4mm prior to debridement; there is no evidence of acute ischemia present, no pain present, no evidence of acute charcot neuroarthropathy. There is some edema to the foot. Decreased sensation c/w peripheral neuropathy. Left foot with no ulcerations or break down, no evidence of acute ischemia, no pain, no evidence of acute charcot neuroarthropathy. Const alert and no apparent distress Lymph Lymphatic: no lymphadenopathy noted and no lymphedema noted Resp normal respiratory effort Cardio regular rate and regular rhythm Extremity no calf tenderness Skin no rashes or lesions noted, skin turgor normal and no jaundice Neuro moves all extremities Neuro Narrative: Decreased sensation consistent with peripheral polyneuropathy Assessment & Plan Assessment/Plan (1) Cellulitis of right lower limb: (2) Chronic ulcer of great toe of right foot with necrosis of muscle: (3) Diabetes mellitus with diabetic polyneuropathy: (4) Type 2 diabetes mellitus with foot ulcer: PLAN: Plan Patient seen and evaluated I have reviewed diagnotic data. Infection: WBC has decreased and currently at 10.4. Clinically there is ulceration right 5th toe - probes close to bone. There is surrounding cellulitis, which is improving. Patient currently on IV Vanco/Zosyn. Blood cultures pending. Wound culture fifth digit demonstrates mixed gram-positive and gram-negative organisms, results still pending. Digit underwent debridement on 11/10/2021 with postdebridement measurements of 0.3 cm x 0.5 cm x 0.15 cm. Dressing: Betadine and dry sterile dressings changed daily. Patient to continue offloading digit Radiographs: Right foot xrays are negative for osteomyelitis. However there was a cortical irregularity at the head of the proximal phalanx of the fifth digit and thus an MRI was ordered which demonstrates marrow edema of the proximal phalanx head of the fifth digit consistent with possible early osteomyelitis. Vascular: LEAS from 11/11/2021 demonstrate monophasic PT pulses bilateral and biphasic DP pulses bilateral. KYM of right lower extremity demonstrates PT of 1.01 and DP of 0.61 and digit 0.31; and left lower extremity PT 0.83, DP 1.40, and digit 1.11. Patient has had history of vascular intervention with Dr. Fry. Edema: Continue elevation of lower extremities at rest I discussed with daughter and patient today the results of the MRI and my recommendations of surgical intervention. Patient and patient's daughter were questioning outpatient surgical intervention as she would like to go home. I discussed while this is possible she is currently at the hospital and my recommendation would be to perform fifth digit amputation while currently in-house. I discussed that this is a limb salvage procedure and would be performed to treat the infected bone and prevent chronic wound, chronic infection, worsening of her infection with spread into the foot, and further amputation. Patient and daughter voiced understanding of this today. They have been briefed on the risks, procedure, and complications. They are aware the risks include but not limited to infection, delayed healing, wound dehiscence, edema, pain, continued pain, transfer lesions, shoe gear problems/difficulty wearing shoes, need for additional surgery, addiction to pain medication, loss of function of the limb, loss of limb, and loss of life. Patient and daughter are aware of these risks and were able to repeat these back. Patient and daughter have decided to have the procedure performed while she is here in the hospital. Plan is for Thursday11/12/21 for fifth digit amputation of the right foot. Patient will be NPO after midnight. Medicine team is following for medical management, this is greatly appreciated Podiatry will continue to follow while in house Please do not hesitate to call with any questions or concerns Elie Zuñiga Jr. D.P.M. [facility] [phone] Note: [employer] speech recognition early childhood associate teacher software was used to create portions of this document. Sound-alike and misspelled words, as well as other early childhood associate teacher errors may be contained in the documentation.
[2021-11-11] MEDS: Acetaminophen 325 MG Tablet 650 MG PO (23:42)
[2021-11-12] VITALS (12 sets, daily range): BP systolic 117–163; BP diastolic 50–93; PULSE 54–64; RESP 14–18; TEMP 36.2–36.6; O2SAT 95–100; BMI 37.3
--- NOTE | 2021-11-12 | IMM_PTH ---
PATIENT: LUC HODGES LOC: MS3 U#:[id number] AGE/SX: 76/F ROOM: OR325 RE11/10/[address]: Dr. Claire Knight DO : 1945 BED: 1 DIS: 11/13/2021 SPEC #: [id number] RECD: 11/15/21 13:27 STATUS: SANDEEP REQ #: [id number] LORENZA: 11/12/21 00:[address]: Elie Zuñiga DEPT: IMMUNOHISTOCHEMISTRY RECD BY: Nikki Cameron ENTERED: 11/15/21 13:32 SP TYPE: IMMUNO OTHR DR: MD Dr. Keshav Wooten DO Dr. Jeffrey Wunning, DPM Dr. Claire Knight DO Tissues: A - Toe, NOS Procedures: BCL-2 (add) BCL-6 (add) CD10 (add) CD138 (add) CD15 (add) CD20 (add) CD23 (add) CD3 (add) CD30 (add) CD43 (add) CD45 (add) CD5 (add) CD79A (add) CYCLIN (add) MUM1 (add) Pankeratin (initial) PHYSICIAN & [place] [id number] SPECIMEN INFORMATION: Tissue Source: A. Right fifth toe amputation Clinical Info: Foot ulcer Specimen Number: [id number] CPT code: 50706, 69526 x15 METHODOLOGY: Deparaffinized sections of prefer/formalin-fixed tissue or PAP/DQ stained slides are incubated with monoclonal/polyclonal antibodies/oligonucleotide probes. Localization is made via biotin free immunoperoxidase method. Appropriate controls are performed and reacted as expected. Results on target cell population are indicated in the following table: RESULTS: ANTIBODY / CLONE RESULT Block A2 AE1-3 (AE1/AE3/PCK26) negative CD3 (PS1) negative CD5 (SP10) negative CD10 (56C6) negative CD15 (MMA) negative CD20 (L26) positive CD23 (1B12) negative CD30 (Ok-H2) negative CD43 (L60) negative CD45 (RP2/18) positive CD79a (11E3) positive CD138 (B-A38) negative BCL-2 (bcl-2/100/D5) positive BCL-6 (ST622V/A8) negative Cyclin D1/BCL-1 (SP4) negative MUM1 (MRQ-43) negative These tests were developed and their performance characteristics determined by [facility]. They may not have been cleared or approved by the U.S. Food and Drug Administration. The FDA has determined that such clearance or approval is not necessary. The above immunohistochemical/dualISH markers are ordered and reviewed by the Pathologist. INTERPRETATION: A. 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 AM:rosario 11/18/2021 Case has been reviewed in consultation with Dr. Bojorquez who concurs with the above diagnosis. IDC:SJ
[2021-11-12 00:06] LABS: Bedside Glucose 358 mg/dL (74-106)
[2021-11-12 05:43] LABS: Absolute Lymphocyte Count 2.79 X10^3/uL (0.83-4.51); Absolute Neutrophil Count 4.3 X10^3/uL (2.0-7.7); Basophil# 0.05 X10^3/uL; Basophil% 0.6 % (0-1); Eosinophil# 0.25 X10^3/uL; Hematocrit 32.4 % (37-47); Hemoglobin 10.5 g/dL (12.0-15.0); Lymphocyte # 2.79 X10^3/ul (0.83-4.51); Mean Corp Hgb Conc 32.4 g/dL (32-36); Mean Corpuscular Hgb 29.7 pg (27.0-32.0); Mean Corpuscular Volume 91.5 fL (81-99); Mean Platelet Vol. 12.7 fl (6.2-12.0); Monocyte# 0.81 X10^3/uL; Monocyte% 9.9 % (0-10); NRBC Flagged by Analyzer 0 % (0-5); Neutrophil # 4.26 X10^3/uL (2.7-7.7); Platelet Count 201 K/mm3 (150-450); RBC Distribution Width CV 13.2 % (11.6-14.6); RBC Distribution Width SD 43.7 fl (35.1-43.9); Red Blood Count 3.54 M/mm3 (4.2-5.4); White Blood Count 8.2 K/mm3 (4.4-11.0)
[2021-11-12 06:28] LABS: ALB/GLOB Ratio 0.6 RATIO (0.9-2.4); AST(SGOT) 11 U/L (15-37); Alanine Aminotransfer ALT/SGPT 10 U/L (13-56); Albumin, Serum 2.4 g/dL (3.2-5.0); Alkaline Phosphatase 44 U/L (45-117); Anion Gap 9 (5-15); BUN 21 mg/dL (7-18); BUN/Creat Ratio 19.4 RATIO (10-20); Calcium,Total 8.4 mg/dL (8.5-10.1); Chloride 109 mmol/L (98-107); Creatinine, Serum 1.08 mg/dL (0.55-1.02); EST Glomerular Filtration Rate 53 mL/min (>60); Est Glom Filt Rate - Afr Amer 64 mL/min (>60); Estimated Creatinine Clearance 39.46 ml/min; Globulin 3.7 g/dL (2.2-4.2); Glucose 320 mg/dL (74-106); Magnesium 1.4 mg/dL (1.6-2.6); Phosphorus 2.9 mg/dL (2.5-4.9); Potassium 3.6 mmol/L (3.5-5.1); Protein, Total 6.1 g/dL (6.4-8.2); Sodium Level 140 mmol/L (136-145)
[2021-11-12 06:29] LABS: Vancomycin, Trough Level 14.6 ug/mL (5.0-15.0)
--- NOTE | 2021-11-12 07:09 | PCM.RX.CS ---
Consult Pharmacy has been consulted to manage selected antiobiotic: Vancomycin Type of Consult: Follow-up Suspected Infection: Skin/Soft tissue, Other - possible osteomyelitis Prior Doses of Antibiotics Received/Current Regimen: current dose is vanc 750mg IV q12h Labs: Sodium 140 mmol/L (136-145) 11/12/21 05:35 Potassium 3.6 mmol/L (3.5-5.1) 11/12/21 05:35 Chloride 109 mmol/L (98-107) H 11/12/21 05:35 Carbon Dioxide 22.0 mmol/L (21.0-32.0) 11/12/21 05:35 Anion Gap 9 (5-15) 11/12/21 05:35 BUN 21 mg/dL (7-18) H 11/12/21 05:35 Creatinine 1.08 mg/dL (0.55-1.02) H 11/12/21 05:35 Est GFR (MDRD) Af Amer 64 mL/min (>60) 11/12/21 05:35 Est GFR (MDRD) Non-Af 53 mL/min (>60) L 11/12/21 05:35 BUN/Creatinine Ratio 19.4 RATIO (10-20) 11/12/21 05:35 Glucose 320 mg/dL (74-106) H 11/12/21 05:35 Vancomycin Trough 14.6 ug/mL (5.0-15.0) 11/12/21 05:35 Microbiology: Microbiology 11/10/21 12:20 Wound - Toe Gram Stain - Final 11/10/21 12:20 Wound - Toe Wound Culture - Preliminary Mixed Gram Pos & Gram Neg Org 11/10/21 07:40 Nasal Secretion SARS-CoV-2 & FLU Antigen (Rapid) - Final Weight used for dosin.8 kg Estimated Creatinine Clearance: 52ml/min Goal Trough: 15-20 mcg/mL Pharmacy Plan for Drug Dosing: The vanc trough drawn at 05:35 today (approximately 10.5 hours after the previous dose) was 14.6. This is close to goal range but last night's dose was given an hour late so the trough would have been even lower if drawn closer to the 12 hour yulia. Therefore, will increase next dose to 1000mg IV q12h, starting tonight since this morning's dose was already hung after the trough was drawn. Will order another trough to be drawn before the 4th new dose. The patient's CrCl of 52ml/min was calculated using an adjusted body weight. Pharmacy Service will continue to monitor and adjust dosing as required. Follow-Up Labs: Trough Vancomycin Labs to be done on [date and time ordered]: 11/14/21 05:30
[2021-11-12] MEDS: Menthol/Lanolin/Calamine/Znox 113 GM Tube 1 APPLIC TOPICAL ×2 (08:26→21:53)
[2021-11-12] MEDS: Insulin Lispro 100 UNIT/ML INSULN.PEN SC ×3 (08:26→21:54)
[2021-11-12] MEDS: Insulin Glargine-YFGN 100 UNIT/ML Pen 20 UNIT SC ×2 (08:27→21:54)
[2021-11-12] MEDS: Propranolol LA 80 MG Capsule PO (08:27)
--- NOTE | 2021-11-12 08:39 | WOUNDNOTE ---
plan is for possible OR today with Dr Zuñiga. will hold off on dressing change for now.
[2021-11-12 09:06] LABS: Bedside Glucose 323 mg/dL (74-106)
--- NOTE | 2021-11-12 09:54 | PN.HOSP_ITS ---
Subjective Subjective No issues overnight. They have elected to proceed with surgery and pickup time is 1030 this morning. No issues with insulin dosing yesterday. Has met with case management and discussed insulin at discharge with assistance financially. Objective Data Objective Data Vital Signs: Vital Signs Temp Pulse Resp BP Pulse Ox O2 Del Method 97.8 F 58 L 14 117/50 L 98 Room Air 11/12/21 05:45 11/12/21 05:45 11/12/21 05:45 11/12/21 05:45 11/12/21 08:39 11/12/21 08:39 Oxygen Delivery Method Room Air Weight: 98.8 kg Body Mass Index (BMI) 37.3 Intake & Output: Intake and Output for Last 24 Hours 11/10/21 11/11/21 11/12/21 23:59 23:59 23:59 Intake Total 3112.0 / 3112.0 2054 / 2054 315 / 315 Output Total 1300 / 1300 150 / 150 Balance 1812.0 / 1812.0 1904 / 1904 315 / 315 Lab / Micro Data Result Diagrams: 11/12/21 05:35 11/12/21 05:35 Labs: Laboratory Results - last 24 hr 11/11/21 11:10: POC Glucose 352 H 11/11/21 16:52: POC Glucose 388 H 11/11/21 20:56: POC Glucose 358 H 11/12/21 05:35: Vancomycin Trough 14.6 11/12/21 05:35: WBC 8.2, RBC 3.54 L, Hgb 10.5 L, Hct 32.4 L, MCV 91.5, MCH 29.7, MCHC 32.4, RDW Std Deviation 43.7, RDW Coeff of Bety 13.2, Plt Count 201, MPV 12 .7 H, Immature Gran % (Auto) 0.500, Neut % (Auto) 52.0, Lymph % (Auto) 34.0, [place] % (Auto) 9.9, Eos % (Auto) 3.0, Baso % (Auto) 0.6, Absolute Neuts (auto) 4.3, Absolute Lymphs (auto) 2.79, Nucleated RBC % 0 11/12/21 05:35: Sodium 140, Potassium 3.6, Chloride 109 H, Carbon Dioxide 22.0, Anion Gap 9, BUN 21 H, Creatinine 1.08 H, Estim Creat Clear Calc 39.46, Est GFR (MDRD) Af Amer 64, Est GFR (MDRD) Non-Af 53 L, BUN/Creatinine Ratio 19.4, Glucose 320 H, Calcium 8.4 L, Phosphorus 2.9, Magnesium 1.4 L, Total Bilirubin 0.30, AST 11 L, ALT 10 L, Alkaline Phosphatase 44 L, Total Protein 6.1 L, Albumin 2.4 L, Globulin 3.7, Albumin/Globulin Ratio 0.6 L 11/12/21 08:24: POC Glucose 323 H Micro: Microbiology 11/10/21 12:20 Wound - Toe Gram Stain - Final 11/10/21 12:20 Wound - Toe Wound Culture - Preliminary Mixed Gram Pos & Gram Neg Org 11/10/21 12:20 Wound - Toe Anaerobic Culture - Preliminary Checking for anaerobes, further studies to follow. 11/10/21 07:40 Nasal Secretion SARS-CoV-2 & FLU Antigen (Rapid) - Final Radiography Diagnostic Testing: Radiology Impression Lower Extremity MRI 11/11/21 08:00 IMPRESSION: Small ulceration or wound of the right fifth toe with moderate bone marrow edema of the adjacent proximal phalangeal head, possible osteomyelitis. Soft tissue swelling of the foot and right fifth toe. Mild bone marrow edema of the fourth proximal phalanx and fifth middle phalanx without cortical erosion. Electronically Signed: Angelica Dias MD at 10:02 EDT Reading Location ID and State: [facility] / [place] Tel , Service support , Rhythm Strip Rhythm Strip: Sinus Rhythm Rate: 85 Ectopy: None Physical Exam Const alert, oriented x3, no apparent distress and well nourished Constitutional Narrative: Older obese, white female sitting up in bed, daughter at bedside, appears comfortable, nontoxic HEENT head/scalp atraumatic and moist oral mucous membranes HEENT Narrative: Mallampati 3, dentition is poor Head and Scalp: normocephalic Resp normal respiratory effort, no retractions, no use of accessory muscles and clear to auscultation bilaterally Resp Narrative: Distant secondary to body habitus Auscultation: Negative for crackles, rales, rhonchi or wheezes Cardio regular rate, regular rhythm, S1 normal heart sound, S2 normal heart sound, no murmurs, no rub, no gallops and no clicks GI normal to inspection, nondistended, normoactive bowel sounds, soft to palpation and non-tender Extremity no clubbing, cyanosis or edema Extremity Narrative: Pedal pulses diminished 1+ bilaterally Skin skin turgor normal, no jaundice, no petechiae and no mottling Skin Narrative: outlined area on anterior lateral right distal lower extremity with erythema, mild tenderness and mild increased tissue temperature with no significant change in last 24 hours Neuro oriented x3, moves all extremities, no focal motor deficits and No no sensory deficits noted Neuro Narrative: Decreased sensation bilateral distal lower extremities Speech: speech normal Assessment & Plan Assessment/Plan (1) Osteomyelitis: (2) Open wound of fifth toe of right foot: PLAN: Plan Right wound fifth digit with suspected osteomyelitis -MRI from today shows small ulceration of the right fifth toe with moderate bone marrow edema of the adjacent proximal phalangeal head and soft tissue swelling of the foot and right fifth digit with bone marrow edema of the fourth proximal phalanx and fifth middle phalanx without cortical erosion -Continue Zosyn and vancomycin for now -Wound cultures pending and currently showing mixed gram-positive and gram- negative growth also checking for anaerobic growth -Blood cultures remain pending -Debridement performed on 11/10/2021 -Plan for OR today with amputation to the fifth digit -Continue to offload area DM-2 uncontrolled -A1c was found to be 11.0 -Patient is on oral agents only as she has previously been reluctant to use injectables -Patient remains agreeable to insulin next and will discontinue the glipizide and sitagliptin at discharge -Did receive injection training from nursing staff -We will likely continue metformin at discharge -Fasting blood sugar 320 this a.m. and therefore increase basal insulin at 20 units twice daily starting today -Prandial sugars remain elevated and will increase lispro 10 units 3 times daily with meals -Continue sliding scale -Continue Accu-Cheks as ordered Diabetic neuropathy -Patient is not on any medication at baseline -Denies need for any gabapentin or Lyrica at this time -Continue to monitor -Encouraged white socks after discharge and daily foot inspections Hypertension -Blood pressure remains overall well controlled -Continue lisinopril 10 mg daily -Continue propranolol 80 mg daily Diabetic retinopathy -Continue outpatient follow-up -History of vitreous hemorrhage Peripheral vascular disease -Continue aspirin -Vascular follow-up as an outpatient -May need to consider adding Plavix but await podiatry recommendations -KYM from 12/29/2020 showed noncompressibility of the dorsalis pedis with an KYM of 0.53 and the posterior tibial having biphasic flow History of SVT -Continue propranolol -It was felt that this was likely induced by dobutamine on a stress test -Continue outpatient follow-up as needed CKD stage II -Baseline serum creatinine appears to be between 1 and 1.2 -Current serum creatinine 1.08 -Avoid nephrotoxins -Continue to monitor especially with antibiotic use Chronic normocytic anemia -Mild -Counts are stable -Monitor Obesity -Recommend weight loss -Complicates treatment, prognosis, outcomes DVT prophylaxis -Continue subcu heparin CODE STATUS -DNR CCA without intubation Charges/Coding Visit Charges Inpatient E&M: 10198 Subs Hosp L2
[2021-11-12] MEDS: Lactated Ringers 1,000 ML 15 ML IV (10:03)
--- NOTE | 2021-11-12 11:05 | RAD_ITS ---
STUDY: X-RAY - RIGHT FOOT CLINICAL: Female, 76 years old. AMPUTATION IN OR TECHNIQUE: 6 view(s) of the foot. COMPARISON: Comparison is made with prior study 11/10/2021. FINDINGS: Intraoperative imaging provided for amputation of the fifth toe. RAD/Foot min 3 Views IMPRESSION: Intraoperative imaging provided for amputation of the fifth toe. Electronically Signed: Gokul Schulte MD at 13:02 EDT ,
--- NOTE | 2021-11-12 11:30 | BON_PTH ---
PATIENT: LUC HODGES LOC: [facility] U#:[id number] AGE/SX: 76/F ROOM: WA325 RE11/10/[address]: Dr. Claire Knight DO : 1945 BED: 1 DIS: 11/13/2021 SPEC #: [id number] RECD: 11/12/21 13:34 STATUS: SANDEEP HANNAH #: [id number] LORENZA: 11/12/21 11:[address]: Elie Zuñiga DEPT: SURGICAL PATHOLOGY RECD BY: Clive Quiroga ENTERED: 11/13/21 07:47 SP TYPE: Bone OTHR DR: MD Dr. Keshav Wooten DO Dr. Jeffrey Wunning, DPM Dr. Claire Knight DO Tissues: A - Bone of foot, NOS B - Bone of foot, NOS Procedures: Decalcification bone/plaque Surgery Specimen Level IV HEADER OPERATION: Amputation fifth toe PRE-OP DIAGNOSIS: Foot ulcer TISSUE SUBMITTED: A ? Fifth toe tissue, right foot, B - Fifth toe bone, right foot MICROSCOPIC DIAGNOSIS A. Right fifth toe, amputation: Bone with atypical B-cell lymphoid aggregates See Comment. B. Fifth toe bone, right foot, excision: Bone with atypical lymphoid aggregates. See Comment. AM:rosario 11/15/2021 COMMENT A. Immunohistochemistry ([id number]) supports the above diagnosis and reveals numerous atypical lymphoid aggregates that stain for CD20, CD79a and CD45. 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 Clinical correlation is necessary. Case has been reviewed in consultation with Dr. Bojorquez who concurs with the above diagnosis. IDC:SJ MICROSCOPIC DESCRIPTION Slides are reviewed. GROSS DESCRIPTION A - Received in fixative is one container labeled with the patient's name and designated fifth toe tissue right foot. The specimen consists of a portion of toe measuring 2.5 x 2 x 1.5 cm. The nail appears atrophic. No skin lesion is identified. Agile Developer sections are submitted in two cassettes as follows: 1 ? skin including nail, 2 ? bone after decalcification. B - Received in fixative is one container labeled with the patient's name and designated fifth toe bone right foot. The specimen consists of two pieces of bone measuring 1.8 x 1.5 x 1 cm and 1 x 0.5 x 0.5 cm. The entire specimen is submitted in one cassette after decalcification. / SJ:rg 11/13/2021 TC:0 CPT: 09009 x2, 67739 x2
[2021-11-12 11:35] LABS: Bedside Glucose 262 mg/dL (74-106)
--- NOTE | 2021-11-12 12:57 | RAD_ITS ---
STUDY: X-RAY - RIGHT FOOT CLINICAL: Female, 76 years old. Postop. TECHNIQUE: 4 view(s) of the foot. COMPARISON: Right foot, 11/10/2021. FINDINGS: There are enthesophytes at the insertions of the Achilles tendon and plantar aponeurosis upon an otherwise normal calcaneus. Normal talus and tarsal bones. Normal visualized subtalar, talonavicular, calcaneocuboid, tarsal and tarsometatarsal articulations. Normal metatarsi. There is degenerative arthrosis of the metatarsophalangeal joint of the hallux . Normal tibial and fibular sesamoid bones. Normal interphalangeal joint of the great toe. Normal phalanges of the great toe. Normal second through fourth metatarsophalangeal joints. Normal interphalangeal joints and phalanges of the second through fourth toes. There is evidence of amputation of the fifth digit at the level of the metatarsal phalangeal joint. The soft tissue structures are unremarkable. RAD/Foot min 3 Views IMPRESSION: Interval amputation of the fifth digit. Electronically Signed: Julian Suero DO at 18:18 EDT ,
--- NOTE | 2021-11-12 13:48 | PCM.OPRPT ---
Problems Associated Problem List Diagnoses (1) Osteomyelitis: (2) Type 2 diabetes mellitus with foot ulcer: (3) Open wound of fifth toe of right foot: (4) Diabetes mellitus with diabetic polyneuropathy: Report of Operation Date of Procedure: 11/12/21 Pre-Operative Diagnosis: Osteomyelitis Proximal Phalanx 5th digit Right foot Post-Operative Diagnosis: Osteomyelitis Proximal Phalanx 5th digit Right foot Surgery/Procedure Performed:: 5th Digit Amputation, Right foot Description of Surgical Findings:: See operative note for findings Surgeon: Elie Zuñiga ostomy rn: None Type of Anesthesia: Local (10mL 1:1 Mixture of 1% Lidocaine plain and 0.25% Marcaine plain) and MAC Specimen's removed: Tissue and Bone of 5th digit Right foot Drains: None Estimated Blood Loss (mL): < 4mL Description of Procedure: HPI/Indication: Patient is a 76-year-old female who presented to the [place] ED with confusion and hyperglycemia. She was admitted for cellulitis of bilateral lower extremities with open fifth digit ulceration and noted cellulitis about the ulcerative site and elevated white count on 11/10/21. She was started on IV antibiotics Vanco/Zosyn. Radiographs were obtained and were interpreted as negative for osteomyelitis. However there was subtle cortical erosion at the proximal phalanx head of the fifth digit. An MRI was ordered which was positive for moderate bone marrow edema fifth proximal phalanx head with mild cortical indistinctness. Middle phalanx demonstrated mild bone marrow edema at the base without cortical erosion. MRI was interpreted as possible early osteomyelitis of the proximal phalanx of the fifth digit. The results were discussed with patient and daughter and in relation to depth of ulceration and proximity to bone suspicion for early osteomyelitis of the proximal phalanx of the fifth digit. I discussed that this is a limb salvage procedure and would be performed to treat the infected bone and prevent chronic wound, chronic infection, worsening of her infection with spread into the foot, and further amputation.? Patient and daughter voiced understanding of this today.? They have been briefed on the risks, procedure, and complications.? They are aware the risks include but not limited to infection, delayed healing, wound dehiscence, edema, pain, continued pain, transfer lesions, shoe gear problems/difficulty wearing shoes, need for additional surgery, addiction to pain medication, blood clot, scarring, loss of function of the limb, loss of limb, and loss of life.?Patient and daughter are aware of these risks and were able to repeat these back. Patient and daughter are in agreement with the plan for surgical intervention. Surgical consent for amputation of the fifth digit of the right foot was freely signed by patient, and the surgical limb was signed. Pre-operative H&P was reviewed including all diagnostic data. Surgery was scheduled for 11/12/2021 at [facility]. Procedure: Under mild sedation the patient was brought the operating room placed on table in supine position. Following induction of IV anesthesia a pneumatic ankle tourniquet was placed about the patient's right ankle. A local anesthetic block consisting of 10 cc of a one-to-one mixture of 1% lidocaine plain and 0.25% Marcaine plain was performed about the fifth metatarsal in reverse Hoffman fashion. The right foot was then scrubbed, prepped, and draped in the usual aseptic manner. At this time attention was directed to the right foot fifth digit where a dorsal ulceration was noted overlying the head of the proximal phalanx laterally. Ulceration measures 0.3 cm x 0.5 cm x 0.15 cm with probing close to the proximal phalanx head and interphalangeal joint. Fluoroscopy was then utilized for preoperative imaging. Next a racquet shaped incision was made just proximal to the ulcerative site about the proximal phalanx utilizing a #15 blade in which to preserve as much viable healthy tissue as possible for flap closure. This incision was carried down to the level of bone. The bone at the head of the proximal phalanx was noted to be discolored frias and soft consistent with osteomyelitis. The base of the proximal phalanx was noted to be of healthy coloration and hardness. The fifth digit was then disarticulated at the level of the metatarsophalangeal joint. At this time tissue culture was obtained of the fifth digit including the ulcerative site and sent to both microbiology and pathology. The head of the proximal phalanx was then split sending a portion to microbiology and pathology for analysis. Next the site was flushed with copious amounts of normal sterile saline. The flexor tendon, extensor tendon, and abductor tendon to the fifth toe was identified and transected as far proximal as possible. All nonviable tissue was debrided. The head of the fifth metatarsal was then inspected and noted to be of hard quality with healthy, shiny appearing cartilage. The surrounding soft tissues were inspected and noted to be of healthy bleeding tissue. No necrotic or nonviable tissue remained. The site was again flushed with copious amounts of normal sterile saline. Fluoroscopic images were obtained in multiple views post digit amputation. The digital soft tissue flap was then inspected for closure and remodeled to provide with a esthetically pleasing soft tissue closure. The digital soft tissue flap was then closed in the subcutaneous layer with 4-0 Monocryl. The skin was then reapproximated with a 3-0 Prolene. At this time the pneumatic ankle tourniquet was deflated and a prompt hyperemic response was noted to the digits of the right foot. The soft tissue flap at the surgical site pinked up promptly. Post-operative fluoroscopy and radiographic imaging was obtained and reviewed prior to leaving the operative room and PACU respectively. The surgical site was dressed with Betadine soaked Adaptic, 4 x 4 gauze, Kerlix, and a 4 inch Didier wrap rolled onto the foot under mild compression. The patient tolerated the procedure and anesthesia well and was transported to PACU with vital signs stable and vascular status intact to the right foot. Once anesthesia protocol has been met she will be readmitted to the floor and continue to receive IV antibiotics to treat her cellulitis. She was instructed to keep the dressings clean, dry, and intact to the right foot. She may elevate the foot at times of rest to control postoperative edema. I will continue to follow while in-house. Grafts/Implants Used: None Complications None Admit VTE Documentation VTE Present on Admission: Yes VTE Mechan Device Prophylaxis: SCD's VTE Pharm Prophylaxis ordered?: No Reason prophylaxis not ordered:: Procedure Not Indicated
[2021-11-12] MEDS: 0.9% Saline Lock 10 ML Syringe IV (15:01)
[2021-11-12] MEDS: Heparin Injection (Vial) 5,000 UNIT/ML VIAL 5000 UNIT SC ×2 (15:02→21:54)
[2021-11-12] MEDS: Insulin Lispro 100 UNIT/ML INSULN.PEN 10 UNIT SC (17:08)
[2021-11-12] MEDS: Juven (unflavored) Packet 1 PACKET PO (17:24)
[2021-11-12 17:30] LABS: Bedside Glucose 304 mg/dL (74-106)
[2021-11-12] MEDS: Vancomycin IV 1,000 MG/200 ML BAG 200 MG IV (19:20)
[2021-11-12 22:40] LABS: Bedside Glucose 313 mg/dL (74-106)
[2021-11-13 02:30] VITALS: BP 101/75; PULSE 65; RESP 16; TEMP 36.7; O2SAT 98
[2021-11-13] MEDS: Acetaminophen 325 MG Tablet 650 MG PO (02:50)
[2021-11-13] MEDS: Heparin Injection (Vial) 5,000 UNIT/ML VIAL 5000 UNIT SC (06:40)
[2021-11-13] MEDS: Vancomycin IV 1,000 MG/200 ML BAG 200 MG IV (06:40)
[2021-11-13 07:29] LABS: Absolute Lymphocyte Count 2.59 X10^3/uL (0.83-4.51); Absolute Neutrophil Count 3.9 X10^3/uL (2.0-7.7); Basophil# 0.02 X10^3/uL; Basophil% 0.3 % (0-1); Eosinophils% 2.7 % (0-5); Hematocrit 31.2 % (37-47); Hemoglobin 10.1 g/dL (12.0-15.0); Lymphocyte # 2.59 X10^3/ul (0.83-4.51); Lymphocyte % 35.1 % (19-41); Mean Corp Hgb Conc 32.4 g/dL (32-36); Mean Corpuscular Hgb 29.7 pg (27.0-32.0); Mean Corpuscular Volume 91.8 fL (81-99); Mean Platelet Vol. 12.5 fl (6.2-12.0); Monocyte# 0.67 X10^3/uL; Monocyte% 9.1 % (0-10); NRBC Flagged by Analyzer 0 % (0-5); Neutrophil # 3.87 X10^3/uL (2.7-7.7); Neutrophil % 52.4 % (47-70); Platelet Count 225 K/mm3 (150-450); RBC Distribution Width CV 13.1 % (11.6-14.6); RBC Distribution Width SD 43.4 fl (35.1-43.9); White Blood Count 7.4 K/mm3 (4.4-11.0)
[2021-11-13 08:11] LABS: ALB/GLOB Ratio 0.6 RATIO (0.9-2.4); AST(SGOT) 13 U/L (15-37); Alanine Aminotransfer ALT/SGPT 13 U/L (13-56); Albumin, Serum 2.3 g/dL (3.2-5.0); Alkaline Phosphatase 44 U/L (45-117); Anion Gap 7 (5-15); BUN 19 mg/dL (7-18); BUN/Creat Ratio 19.7 RATIO (10-20); Calcium,Total 8.5 mg/dL (8.5-10.1); Chloride 110 mmol/L (98-107); Creatinine, Serum 0.97 mg/dL (0.55-1.02); EST Glomerular Filtration Rate 60 mL/min (>60); Est Glom Filt Rate - Afr Amer 73 mL/min (>60); Estimated Creatinine Clearance 43.94 ml/min; Globulin 3.6 g/dL (2.2-4.2); Glucose 294 mg/dL (74-106); Magnesium 1.5 mg/dL (1.6-2.6); Phosphorus 2.7 mg/dL (2.5-4.9); Potassium 3.5 mmol/L (3.5-5.1); Protein, Total 5.9 g/dL (6.4-8.2); Sodium Level 141 mmol/L (136-145)
[2021-11-13] MEDS: Insulin Lispro 100 UNIT/ML INSULN.PEN SC ×2 (08:56→12:44)
[2021-11-13] MEDS: Aspirin 81 MG TAB.CHEW PO (08:56)
[2021-11-13] MEDS: Juven (unflavored) Packet 1 PACKET PO (08:56)
[2021-11-13] MEDS: Insulin Lispro 100 UNIT/ML INSULN.PEN 16 UNIT SC ×2 (08:58→12:45)
[2021-11-13] MEDS: Insulin Glargine-YFGN 100 UNIT/ML Pen 30 UNIT SC (08:59)
[2021-11-13] MEDS: Menthol/Lanolin/Calamine/Znox 113 GM Tube 1 APPLIC TOPICAL (09:02)
[2021-11-13 09:31] LABS: Bedside Glucose 321 mg/dL (74-106)
[2021-11-13 10:40] VITALS: BP 126/55; PULSE 68; RESP 16; TEMP 36.9; O2SAT 100
[2021-11-13] MEDS: Propranolol LA 80 MG Capsule PO (10:44)
--- NOTE | 2021-11-13 10:56 | DS.PCM_ITS ---
Providers Date of Admission: 11/10/21 Date of Discharge: 11/13/21 Primary Care Physician: Dr. Keshav Lambert, DO Consultations 11/10/21 10:51 Consult: Podiatry Routine Consulting Provider: Jonah Corona Reason for Consult: Right foot ulcer EMERGENT Consult: No MD Notified: Yes Date Notified: 11/10/21 Time Notified: 10:51 Method of Notification: Verbal 11/11/21 08:18 Consult: Onc/Wound/fiberglass laminator Routine Comment: Reason for Consult:: wound on great toe/ podiatry also seeing pt Reason For Visit: HYPERGLYCEMIA, CELLULITIS Diagnosis Discharge Diagnosis (1) Osteomyelitis: Status: Acute Code(s): M86.9 - Osteomyelitis, unspecified (2) Type 2 diabetes mellitus with foot ulcer: Status: Acute Code(s): E11.621 - Type 2 diabetes mellitus with foot ulcer; L97.509 - Non-pressure chronic ulcer of other part of unspecified foot with unspecified severity (3) Open wound of fifth toe of right foot: Status: Acute Code(s): S91.104A - Unspecified open wound of right lesser toe(s) without damage to nail, initial encounter (4) Diabetes mellitus with diabetic polyneuropathy: Status: Acute Code(s): E11.42 - Type 2 diabetes mellitus with diabetic polyneuropathy Plan Right wound fifth digit with suspected osteomyelitis -MRI from today shows small ulceration of the right fifth toe with moderate bone marrow edema of the adjacent proximal phalangeal head and soft tissue swelling of the foot and right fifth digit with bone marrow edema of the fourth proximal phalanx and fifth middle phalanx without cortical erosion -Continue Zosyn and vancomycin for now -Wound cultures pending and currently showing mixed gram-positive and gram- negative growth also checking for anaerobic growth -Blood cultures remain pending -Debridement performed on 11/10/2021 -Plan for OR today with amputation to the fifth digit -Continue to offload area DM-2 uncontrolled -A1c was found to be 11.0 -Patient is on oral agents only as she has previously been reluctant to use injectables -Patient remains agreeable to insulin next and will discontinue the glipizide and sitagliptin at discharge -Did receive injection training from nursing staff -We will likely continue metformin at discharge -Fasting blood sugar 320 this a.m. and therefore increase basal insulin at 20 un its twice daily starting today -Prandial sugars remain elevated and will increase lispro 10 units 3 times daily with meals -Continue sliding scale -Continue Accu-Cheks as ordered Diabetic neuropathy -Patient is not on any medication at baseline -Denies need for any gabapentin or Lyrica at this time -Continue to monitor -Encouraged white socks after discharge and daily foot inspections Hypertension -Blood pressure remains overall well controlled -Continue lisinopril 10 mg daily -Continue propranolol 80 mg daily Diabetic retinopathy -Continue outpatient follow-up -History of vitreous hemorrhage Peripheral vascular disease -Continue aspirin -Vascular follow-up as an outpatient -May need to consider adding Plavix but await podiatry recommendations -KYM from 12/29/2020 showed noncompressibility of the dorsalis pedis with an KYM of 0.53 and the posterior tibial having biphasic flow History of SVT -Continue propranolol -It was felt that this was likely induced by dobutamine on a stress test -Continue outpatient follow-up as needed CKD stage II -Baseline serum creatinine appears to be between 1 and 1.2 -Current serum creatinine 1.08 -Avoid nephrotoxins -Continue to monitor especially with antibiotic use Chronic normocytic anemia -Mild -Counts are stable -Monitor Obesity -Recommend weight loss -Complicates treatment, prognosis, outcomes DVT prophylaxis -Continue subcu heparin CODE STATUS -DNR CCA without intubation Medications at Discharge Home Medications CuraLin See Rx Instructions .Route .COMPLEX supplement 08/10/19 aspirin 81 mg chewable tablet (Margarita Chewable Low Dose Aspirin) 81 mg PO DAILY i2 [employer] 02/22/20 lisinopril 10 mg tablet 10 mg PO DAILY #90 tabs 07/26/21 propranolol 80 mg capsule,24 hr,extended release 80 mg PO DAILY #90 caps acetaminophen 325 mg tablet (Tylenol) 650 mg PO Q6H PRN PRN Pain 1-10 Or Fever #0 tabs 11/13/21 amoxicillin 875 mg-potassium clavulanate 125 mg tablet 1 tab PO BID #20 tabs 11/13/21 doxycycline monohydrate 100 mg capsule 100 mg PO BID #20 caps 11/13/21 insulin glargine-yfgn 100 unit/mL (3 mL) subcutaneous pen 30 unit (0.3 mL) subcut BID #15 mL 11/13/21 insulin lispro 100 unit/mL subcutaneous pen (Humalog KwikPen (U-100) Insulin) 16 unit (0.16 mL) subcut TIDAC #15 mL 11/13/21 metformin 1,000 mg tablet 1,000 mg PO BID #60 tabs 11/13/21 Hospital Course Operations - (Amputation of right fifth digit) Procedures - (I&D right fifth digit foot wound/dry right lower extremity/KYM) Summary of Care Provided Minutes Spent on Discharge: 39 Hospital Course: Mrs. Lovelace is a 76-year-old white [place] female who presented to the emergency department at [facility] on 11/10/2021 with altered mental status and elevated blood sugars. Family reported on presentation that her confusion was noted on the morning of admission. At baseline she was living at home with her daughter and ambulates with a cane. She was found to be very weak and confused on the morning of admission and they checked her blood sugar and was found that was markedly elevated. Family reported that at baseline typically she was alert and oriented x3. Vitals in the ED were stable. She has a low-grade temperature of 99.3F.? WBC count is 19.0, neutrophilia, hemoglobin 11.7, platelet count 236.? Sodium is 135, potassium 4.4, chloride 103, bicarbonate 20, BUN 28, creatinine 1.36, previous creatinine was 1.17.? Admitting blood glucose 482.? UA was unremarkable except for glucosuria. On physical exam she was noted to have a right fifth toe cellulitis extending up into the right lower extremity. She was placed on cefazolin and x-ray of the foot was obtained. Podiatry was also consulted at that time. An I&D was done to the fifth toe and cultures were obtained. Antibiotics were broadened from vancomycin and cefazolin to vancomycin and Zosyn for pseudomonal coverage. An MRI was obtained on 11/11/2021 and this showed a small ulceration or wound of the right fifth toe with moderate bone marrow edema of the adjacent proximal pha langeal head that was suggestive of osteomyelitis. Podiatry reviewed the imaging and discussed the case with the patient and suggested amputation of the fifth digit. After extensive discussion with her family, patient elected for right fifth digit amputation which was performed on 11/12/2021. She tolerated the procedure well and was reevaluated by podiatry on 11/13/2021 at which time discharge home was recommended. Dressing change was discussed and instructed by nursing to the patient's family and the patient is to follow-up with podiatry as an outpatient. Preoperative cultures showed MRSA, group B strep, E. coli, Acinetobacter, and Turicella. Sensitivities were reviewed and the patient was able to be discharged on doxycycline 100 mg p.o. twice daily for another 10 days as well as Augmentin 875/125 twice daily for another 10 days. Her hemoglobin A1c was noted to be markedly elevated at 11.0 on admission. I discussed this with her and her family and she previously had been reluctant to go on injectables for improving her blood sugar control. We discussed that with her wound and infection as well as her markedly elevated blood sugars on presentation that she would benefit from going on insulin. The patient agreed. Injection instruction was given to the patient by nursing staff and she was competent in this prior to discharge. She was discharged on Lantus 30 units twice daily as well as Humalog 16 units prior to meals. She was instructed on decreasing her insulin dose by half if she is n.p.o. or if having nausea and vomiting and to hold her prandial insulin if she is not eating. We also continued her metformin 1000 mg p.o. twice daily but viewed her glipizide and her Januvia at the time of discharge. Prescription assistance was obtained by case management for the patient and all prescriptions were faxed to the pharmacy prior to discharge. She was instructed to follow-up with her primary care physician within the next 1 to 2 weeks and with podiatry as directed. She was discharged home with her family in stable condition on 11/13/2021. Discharge diagnoses: Polymicrobial right fifth digit osteomyelitis Right lower extremity cellulitis Right fifth digit amputation [id number] with hemoglobin A1c of 11 Peripheral vascular disease Diabetic neuropathy Hypertension Diabetic retinopathy History of SVT CKD stage II Chronic normocytic anemia Obesity Physical Exam Const alert, oriented x3, no apparent distress and well nourished Constitutional Narrative: Older obese, white female sitting up in a chair eating breakfast, daughter at bedside, appears comfortable, nontoxic General Appearance: cooperative, comfortable, well kempt and well developed Orientation / Consciousness: awake Exam Limitations: no limitations Nutritional Appearance: obese HEENT normocephalic, head/scalp atraumatic and moist oral mucous membranes HEENT Narrative: Mild to moderate hearing loss, Mallampati 3, no thrush, dentition is poor Eyes PERRL, EOMs intact bilaterally and conjunctivae normal Neck no lymphadenopathy and supple Neck Narrative: Trachea midline, no thyroid enlargement, neck is short and thick Resp normal respiratory effort, no retractions, no use of accessory muscles and clear to auscultation bilaterally Resp Narrative: Distant secondary to body habitus Auscultation: Negative for crackles, rales, rhonchi or wheezes Cardio regular rate, regular rhythm, S1 normal heart sound, S2 normal heart sound, no murmurs, no rub, no gallops, no clicks and no JVD GI normal to inspection, nondistended, normoactive bowel sounds, soft to palpation and non-tender Extremity no clubbing, cyanosis or edema Extremity Narrative: Pedal pulses diminished 1+ bilaterally Skin skin turgor normal, no jaundice, no petechiae and no mottling Skin Narrative: outlined area on anterior lateral right distal lower extremity with erythema, mild tenderness and mild increased tissue temperature that is much better in the last 24 hours since her amputation Neuro oriented x3, CN's II-XII intact bilaterally, moves all extremities, no focal motor deficits and No no sensory deficits noted Neuro Narrative: Decreased sensation bilateral distal lower extremities, generalized weakness- proximal greater than distal Speech: speech normal Psych affect normal Psych Narrative: Very pleasant and appropriately interactive, anxious to go home Weight / BMI Weight Weight: 98.8 kg Body Mass Index (BMI) 37.3 ABG / Lab / Microbiology Data Result Diagrams: 11/13/21 07:15 11/13/21 07:15 Laboratory: Laboratory Results - last 24 hr 11/12/21 11:15: POC Glucose 262 H 11/12/21 17:06: POC Glucose 304 H 11/12/21 21:52: POC Glucose 313 H 11/13/21 07:15: WBC 7.4, RBC 3.40 L, Hgb 10.1 L, Hct 31.2 L, MCV 91.8, MCH 29.7, MCHC 32.4, RDW Std Deviation 43.4, RDW Coeff of Bety 13.1, Plt Count 225, MPV 12.5 H, Immature Gran % (Auto) 0.400, Neut % (Auto) 52.4, Lymph % (Auto) 35.1, [place] % (Auto) 9.1, Eos % (Auto) 2.7, Baso % (Auto) 0.3, Absolute Neuts (auto) 3.9, Absolute Lymphs (auto) 2.59, Nucleated RBC % 0 11/13/21 07:15: Sodium 141, Potassium 3.5, Chloride 110 H, Carbon Dioxide 24.0, Anion Gap 7, BUN 19 H, Creatinine 0.97, Estim Creat Clear Calc 43.94, Est GFR (MDRD) Af Amer 73, Est GFR (MDRD) Non-Af 60, BUN/Creatinine Ratio 19.7, Glucose 294 H, Calcium 8.5, Phosphorus 2.7, Magnesium 1.5 L, Total Bilirubin 0.40, AST 13 L, ALT 13, Alkaline Phosphatase 44 L, Total Protein 5.9 L, Albumin 2.3 L, Globulin 3.6, Albumin/Globulin Ratio 0.6 L 11/13/21 08:54: POC Glucose 321 H Microbiology: Microbiology 11/10/21 12:20 Wound - Toe Gram Stain - Final 11/10/21 12:20 Wound - Toe Wound Culture - Final Meth. resistant Staph. aureus Streptococcus agalactiae (B) Escherichia coli Acinetobacter baumannii Turicella otitidis 11/10/21 12:20 Wound - Toe Anaerobic Culture - Preliminary Checking for anaerobes, further studies to follow. 11/12/21 12:38 Bone - 5th Toe Gram Stain - Final 11/12/21 12:36 Tissue - 5th Toe Gram Stain - Final 11/10/21 08:15 Blood Culture (Wb) - Left Hand Blood Culture - Preliminary No growth in 48 hours. 11/10/21 07:40 Blood Culture (Wb) - Anticubital Right Blood Culture - Preliminary No growth in 48 hours. 11/10/21 07:40 Nasal Secretion SARS-CoV-2 & FLU Antigen (Rapid) - Final Radiography Diagnostic Testing: Radiology Impression Foot X-Ray 11/12/21 12:57 IMPRESSION: Interval amputation of the fifth digit. Electronically Signed: Julian Suero DO at 18:18 EDT Reading Location ID and State: [address] [place] [address] Tel [phone], Service support , D/C Instructions Discharge Diet: Low fat / Low cholesterol and 1800 Calorie Control Diet Discharge Activity: Return to Normal Activity Meaningful Use Info Meaningful Use Diagnoses (Choose all that apply): None applicable Discharge Plan Admission Admit Date/Time: 11/10/21 09:15 Primary Reason for Your Visit: Altered mental status/diabetic foot ulcer/hyperglycemia Attending Provider: Claire Knight Primary Care Provider: Keshav Lambert Consulting Providers: Jonah Corona ; Linh Mahajan Instructions Additional Instructions / Restrictions: 1. Please check blood sugars 3 times daily once in the morning when you wake up, once before lunch, and once before dinner -Please do this until follow-up with primary care physician and keep track of blood sugars by writing them down and take them to your appointment 2. Please complete entire antibiotic course Discharge Orders/Prescriptions Prescriptions: New insulin glargine-yfgn 100 unit/mL (3 mL) Insulin Pen 30 unit subcut BID Qty: 15 1RF Rx Instructions: Take 15 U twice daily if not eating or if nausea and vomiting insulin lispro [Humalog KwikPen Insulin] 100 unit/mL Insulin Pen 16 unit subcut TIDAC Qty: 15 1RF Rx Instructions: take only with meals acetaminophen [Tylenol] 325 mg Tablet 650 mg PO Q6H PRN PRN (Reason: Pain 1-10 Or Fever) Qty: 0 0RF metformin 1,000 mg tablet 1,000 mg PO BID Qty: 60 1RF doxycycline monohydrate 100 mg capsule 100 mg PO BID Qty: 20 0RF amoxicillin-pot clavulanate 875-125 mg tablet 1 tab PO BID Qty: 20 0RF Continued CuraLin tablet See Rx Instructions .ROUTE .COMPLEX Rx Instructions: OTC supplement 2 tabs with each meal; OTC supplement 2 tabs with each meal aspirin [Margarita Chewable Aspirin] 81 mg tablet,chewable 81 mg PO DAILY lisinopril 10 mg tablet 10 mg PO DAILY Qty: 90 3RF propranolol 80 mg capsule,extended release 24 hr 80 mg PO DAILY Qty: 90 0RF Rx Instructions: Daily in the A.M. Discontinued glipizide 5 mg tablet 5 mg PO DAILY Qty: 90 1RF Janumet 50-1,000 mg tablet 1 tab PO DAILY Qty: 90 2RF Referrals / Follow Up: Keshav Lambert, [Primary Care Provider] - Within 1 Week (Hospital Follow-up) Yogesh,Elie, DPM [Med Staff - Active Staff] - See Referral Note (as instructed by Dr. Zuñiga) Disposition Disposition (needs filled in before D/C Order can be placed): Home, Self Care Charges/Coding Visit Charges Inpatient E&M: 30368 Disch Hosp
--- NOTE | 2021-11-13 12:00 | CASEMGMT ---
TC to retail pharmacy to obtain cost of meds. Cost is $634.89 without needles. Per Iris, pt can get needles otc. Pt could not get needles with [facility]. FRANTZ CM in to pt room to discuss. Pt dtrs state they can pay for the cost of the medication and that next month pt was approved to be on patient assistance through 's office. Pt and dtrs would like meds to be delivered to the room. Pt and dtrs deny any need for homecare. Pt states she is I in administering insulin as she has done this before. They deny further homegoing needs. TC to retail pharmacy, spoke with Jan. Darden pt will pay for meds and request to be delivered to room.
--- NOTE | 2021-11-13 12:25 | PCM.PROGNOTE ---
Subjective Subjective Patient is a 76-year-old female seen bedside today resting in chair with family present with feet elevated status post fifth digit amputation of the right foot. She denies any pain to the site today. She denies any constitutional symptoms. She denies any further complaints today. Objective Data Objective Data Vital Signs: Vital Signs Temp Pulse Resp BP Pulse Ox O2 Del Method 98.4 F 68 16 126/55 H 100 Room Air 11/13/21 10:40 11/13/21 10:40 11/13/21 10:40 11/13/21 10:40 11/13/21 10:40 11/13/21 10:40 Oxygen Delivery Method Room Air Weight: 98.8 kg Body Mass Index (BMI) 37.3 Intake & Output: Intake and Output for Last 24 Hours 11/11/21 11/12/21 11/13/21 23:59 23:59 23:59 Intake Total 5 / 5 671.5 / 1171.5 1250 / 1250 Output Total 150 / 150 Balance 1905 / 1905 671.5 / 1171.5 1250 / 1250 Lab / Micro Data Result Diagrams: 11/13/21 07:15 11/13/21 07:15 Labs: Laboratory Results - last 24 hr 11/12/21 17:06: POC Glucose 304 H 11/12/21 21:52: POC Glucose 313 H 11/13/21 07:15: WBC 7.4, RBC 3.40 L, Hgb 10.1 L, Hct 31.2 L, MCV 91.8, MCH 29.7, MCHC 32.4, RDW Std Deviation 43.4, RDW Coeff of Bety 13.1, Plt Count 225, MPV 12.5 H, Immature Gran % (Auto) 0.400, Neut % (Auto) 52.4, Lymph % (Auto) 35.1, [place] % (Auto) 9.1, Eos % (Auto) 2.7, Baso % (Auto) 0.3, Absolute Neuts (auto) 3.9, Absolute Lymphs (auto) 2.59, Nucleated RBC % 0 11/13/21 07:15: Sodium 141, Potassium 3.5, Chloride 110 H, Carbon Dioxide 24.0, Anion Gap 7, BUN 19 H, Creatinine 0.97, Estim Creat Clear Calc 43.94, Est GFR (MDRD) Af Amer 73, Est GFR (MDRD) Non-Af 60, BUN/Creatinine Ratio 19.7, Glucose 294 H, Calcium 8.5, Phosphorus 2.7, Magnesium 1.5 L, Total Bilirubin 0.40, AST 13 L, ALT 13, Alkaline Phosphatase 44 L, Total Protein 5.9 L, Albumin 2.3 L, Globulin 3.6, Albumin/Globulin Ratio 0.6 L 11/13/21 08:54: POC Glucose 321 H Micro: Microbiology 11/12/21 12:38 Bone - 5th Toe Gram Stain - Final 11/12/21 12:38 Bone - 5th Toe Wound Culture - Preliminary Gram negative dorys Mixed Gram Positive Organisms 11/12/21 12:36 Tissue - 5th Toe Gram Stain - Final 11/12/21 12:36 Tissue - 5th Toe Wound Culture - Preliminary Mixed Gram Positive Organisms 11/10/21 12:20 Wound - Toe Gram Stain - Final 11/10/21 12:20 Wound - Toe Wound Culture - Final Meth. resistant Staph. aureus Streptococcus agalactiae (B) Escherichia coli Acinetobacter baumannii Turicella otitidis 11/10/21 12:20 Wound - Toe Anaerobic Culture - Preliminary Checking for anaerobes, further studies to follow. 11/10/21 08:15 Blood Culture (Wb) - Left Hand Blood Culture - Preliminary No growth in 48 hours. 11/10/21 07:40 Blood Culture (Wb) - Anticubital Right Blood Culture - Preliminary No growth in 48 hours. 11/10/21 07:40 Nasal Secretion SARS-CoV-2 & FLU Antigen (Rapid) - Final Radiography Diagnostic Testing: Radiology Impression Foot X-Ray 11/12/21 12:57 IMPRESSION: Interval amputation of the fifth digit. Electronically Signed: Julian Suero DO at 18:18 EDT Reading Location ID and State: [address] [place] [address] Tel [phone], Service support , Rhythm Strip Rhythm Strip: Sinus Rhythm Rate: 85 Ectopy: None Physical Exam Narrative Right foot s/p fifth digit amputation. There is some edema to the foot. Decreased sensation c/w peripheral neuropathy. Sutures intact with skin healthy and pink with proper coloration. Left foot with no ulcerations or break down, no evidence of acute ischemia, no pain, no evidence of acute charcot neuroarthropathy. Const alert and no apparent distress Lymph Lymphatic: no lymphadenopathy noted and no lymphedema noted Resp normal respiratory effort Cardio regular rate and regular rhythm Extremity no calf tenderness Skin no rashes or lesions noted, skin turgor normal and no jaundice Neuro moves all extremities Neuro Narrative: Decreased sensation consistent with peripheral polyneuropathy Assessment & Plan Assessment/Plan (1) Osteomyelitis: (2) Type 2 diabetes mellitus with foot ulcer: (3) Open wound of fifth toe of right foot: (4) Diabetes mellitus with diabetic polyneuropathy: PLAN: Plan Patient seen and evaluated I have reviewed diagnotic data. Patient is s/p fifth digit amputation of the right foot. POV #1, (DOS: 11/12/2021), POD #1 Infection: WBC has decreased and currently at 7.2. Fifth digit amputation noted with intact sutures. Skin flap surrounding incision site is healthy-appearing with pink coloration. Patient currently on IV Vanco/Zosyn. Erythema of bilateral legs continues to decrease. Blood cultures pending. Wound culture fifth digit demonstrates mixed gram-positive and gram-negative organisms. Surgery 11/12/2021: It is noted during amputation of the fifth digit at the proximal phalanx head was noted to be discolored frias and soft consistent with osteomyelitis. The base of the proximal phalanx of the fifth digit was noted to be hard with healthy coloration noted. The digit was disarticulated at the fifth metatarsophalangeal joint. Head of the fifth metatarsal was healthy appearing with shiny cartilage and no signs of infection. Surrounding tissues appeared healthy with viable bleeding. Tissue culture of fifth toe from 11/10/2021 prior to surgical intervention demonstrates MRSA, Streptococcus agalactiae (B), E. coli, Acinetobacter Baumannii, and Turicella otitidis. Tissue culture from 11/12/2021 demonstrates +3 gram-positive dorys, bone culture fifth toe from 11/12/2021 demonstrates gram-negative dorys. Dressing: Betadine, Adaptic, and dry sterile dressings changed daily. Patient to continue offloading of foot in surgical shoe with weightbearing to the right heel. Radiographs: Right foot xrays are negative for osteomyelitis. However there was a cortical irregularity at the head of the proximal phalanx of the fifth digit and thus an MRI was ordered which demonstrates marrow edema of the proximal phalanx head of the fifth digit consistent with possible early osteomyelitis. Vascular: LEAS from 11/11/2021 demonstrate monophasic PT pulses bilateral and biphasic DP pulses bilateral. KYM of right lower extremity demonstrates PT of 1.01 and DP of 0.61 and digit 0.31; and left lower extremity PT 0.83, DP 1.40, and digit 1.11. Patient has had history of vascular intervention with Dr. Fry. Edema: Continue elevation of lower extremities at rest Medicine team is following for medical management, this is greatly appreciated Patient is scheduled to be discharged home today. Patient and family are to follow-up in office in 1 week. They are to keep dressings clean, dry, and intact to the right foot. Please do not hesitate to call with any questions or concerns Elie Zuñiga Jr. D.P.M. [facility] [phone] Note: [employer] speech recognition director weights and measures software was used to create portions of this document. Sound-alike and misspelled words, as well as other director weights and measures errors may be contained in the documentation.
--- NOTE | 2021-11-13 12:33 | WOUNDNOTE ---
Dr Zuñiga in to assess the right foot and change the dressing with family. dressing and ANGELA wrap removed. there was a small amount of drainage noted on the old dressing. incision to the right 5th toe amputation site is well approximated with sutures in place. the redness has improved to the RLE. betadine was applied to the incision and placed Adaptic. covered with dry dressings and wrapped with kerlix. reapplied the ANGELA wrap. pt tolerated well. family aware of supplies needed. pt will be send home with a few as well. surgical show given. family aware that patient is to be heel touch when up. aware to keep legs elevated as much as possible as well. pt tolerated well. see wound photo.
--- NOTE | 2021-11-13 12:39 | WOUNDNOTE ---
Called and talked with Lissette slasher tender to notify that family and patient are requesting education on diet restrictions. Lissette states either herself or Sena will be in to discuss with family.
--- NOTE | 2021-11-13 13:59 | WOUNDNOTE ---
wound photo: right foot
[2021-11-13 14:00] VITALS: BP 163/54; PULSE 69; RESP 16; TEMP 36.8; O2SAT 99
[2021-11-13 14:30] LABS: Bedside Glucose 267 mg/dL (74-106)
== END 2021-11-13 14:24 | disposition home or self-care (01) | DRG 616 ==
LOC: ED 07:59 → MS3 09:16
PROVIDERS: Podiatrist; Student in an Organized Health Care Education/Training Program; Admitting Provider Internal Medicine; Emergency Provider Emergency Medicine; PCP Family Medicine; Referring Provider Internal Medicine; Visit Provider Internal Medicine
PROC: 0Y6X0Z0 Detachment at Right 5th Toe, Complete, Open Approach (ICD-10-PCS; principal; 2021-11-12 11:15)
DX: E11.69 Type 2 diabetes mellitus with other specified complication (principal); G93.41 Metabolic encephalopathy; M86.8X7 Other osteomyelitis, ankle and foot; L97.513 Non-pressure chronic ulcer of other part of right foot with necrosis of muscle; E11.22 Type 2 diabetes mellitus with diabetic chronic kidney disease; L03.031 Cellulitis of right toe; B95.62 Methicillin resistant Staphylococcus aureus infection as the cause of diseases classified elsewhere; B95.1 Streptococcus, group B, as the cause of diseases classified elsewhere; B96.20 Unspecified Escherichia coli [E. coli] as the cause of diseases classified elsewhere; E11.51 Type 2 diabetes mellitus with diabetic peripheral angiopathy without gangrene; E11.621 Type 2 diabetes mellitus with foot ulcer; E11.65 Type 2 diabetes mellitus with hyperglycemia; E11.319 Type 2 diabetes mellitus with unspecified diabetic retinopathy without macular edema; E11.42 Type 2 diabetes mellitus with diabetic polyneuropathy; N18.31 Chronic kidney disease, stage 3a; D64.9 Anemia, unspecified; I12.9 Hypertensive chronic kidney disease with stage 1 through stage 4 chronic kidney disease, or unspecified chronic kidney disease; R53.1 Weakness; Z79.82 Long term (current) use of aspirin; R53.81 Other malaise; Z66 Do not resuscitate; E66.9 Obesity, unspecified; Z68.37 Body mass index [BMI] 37.0-37.9, adult; Z79.84 Long term (current) use of oral hypoglycemic drugs; B96.89 Other specified bacterial agents as the cause of diseases classified elsewhere
CPT/HCPCS: 36415; 70450; 71045; 73630; 73718; 76000; 80048; 80053; 80202; 81001; 82962; 83036; 83735; 84100; 84484; 85025; 85652; 86140; 87040; 87070; 87075; 87077; 87186; 87205; 87428; 87640; 88305; 88311; 88341; 88342; 93005; 93923; 97116; 97162; 97166; 97530; 97535; 97802; 97803; 99285; J7030; J7040; J7050; J7120; A4216; J0295

== ENCOUNTER → 2021-12-13 | Outpatient (CLI) | payer SELFPAY | END | disposition home or self-care (01) | LOC: LABSPEC 16:06 | PROVIDERS: PCP Family Medicine; Visit Provider Student in an Organized Health Care Education/Training Program | DX: L03.115 Cellulitis of right lower limb (principal); Z89.421 Acquired absence of other right toe(s); L97.512 Non-pressure chronic ulcer of other part of right foot with fat layer exposed | CPT/HCPCS: 87070; 87075; 87077; 87186; 87205 ==

== ENCOUNTER 2021-12-16 13:38 | Emergency (ER) | payer OTHER, SELFPAY ==
[2021-12-16 13:40] VITALS: BP 129/76; PULSE 100; RESP 16; TEMP 36.6; O2SAT 96; BMI 36.6
[2021-12-16 13:47] VITALS: BP 129/76; PULSE 100; RESP 16; TEMP 36.6; O2SAT 96
--- NOTE | 2021-12-16 14:02 | EDS_ITS ---
HPI History of Present Illness Chief Complaint: Wound Informant: patient and other (podiatry) Onset/Context/Timing Onset: Weeks (1) Context: Gradual Onset Timing: Continuous Quality of Pain: Aching Location: R foot Current Severity: Moderate Maximum Severity: Moderate Worsened by: palpation Relieved by: lfeaving alone Associated Symptoms Associated Symptoms: Positive for Parasthesia (chronic BLE); Negative for Weakness or Loss of Funtion Narrative Narrative: Patient had a right fifth toe amputation about a month ago by podiatry, she developed postoperative infection, started on antibiotics for that about 3 days ago, doxycycline 100 mg twice daily and levofloxacin 750 mg daily. Patient has been on it for 3 to 4 days and followed up with podiatry today, the infection is worse and progressing proximally so she was sent to the emergency department for IV antibiotics and further management. Cultures were obtained in the office prior to starting the antibiotics. Patient denies any fevers, chills, systemic symptoms. She has mostly numbness and so she does not feel a lot of pain but does have some soreness in her foot. No other new systemic symptoms. According to Dr. Zuñiga podiatry, had an x-ray 3 days ago that did not show any signs of osteomyelitis. 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 Delayed wound healing Diabetes mellitus with diabetic polyneuropathy Diabetic ulcer of left foot with fat layer exposed Hyperglycemia due to type 2 diabetes mellitus Incomplete left bundle branch block Lesion of lumbar spine Normocytic anemia Spinal stenosis, lumbar SVT (supraventricular tachycardia) Type 2 diabetes mellitus Type 2 diabetes mellitus with foot ulcer Ulcer of right foot with fat layer exposed Vitreous hemorrhage of left eye Home Medications CuraLin See Rx Instructions .Route .COMPLEX supplement 08/10/19 [History Last Taken Unknown] aspirin 81 mg chewable tablet (Margarita Chewable Low Dose Aspirin) 81 mg PO DAILY heart health 02/22/20 [History Last Taken Unknown] lisinopril 10 mg tablet 10 mg PO DAILY #90 tabs 07/26/21 [Rx Last Taken Unknown] propranolol 80 mg capsule,24 hr,extended release 80 mg PO DAILY #90 caps 07/29/21 [Rx Last Taken Unknown] acetaminophen 325 mg tablet (Tylenol) 650 mg PO Q6H PRN PRN Pain 1-10 Or Fever #0 tabs 11/13/21 [Rx Last Taken Unknown] insulin lispro 100 unit/mL subcutaneous pen (Humalog KwikPen (U-100) Insulin) 16 unit (0.16 mL) subcut TIDAC #15 mL 11/13/21 [Rx Last Taken Unknown] metformin 1,000 mg tablet 1,000 mg PO BID #60 tabs 11/13/21 [Rx Last Taken Unknown] ferrous sulfate 325 mg (65 mg iron) tablet 325 mg PO DAILY #90 tabs 12/09/21 [Rx Last Taken Unknown] multivitamin 1 tab PO DAILY #90 tabs 12/09/21 [Rx Last Taken Unknown] insulin glargine-yfgn 100 unit/mL (3 mL) subcutaneous pen See Rx Instructions subcut BID 12/10/21 [History Last Taken Unknown] linezolid 600 mg tablet 600 mg PO Q12H 10 days #20 tabs 12/16/21 [Rx Last Taken Unknown] Allergy/AdvReac Type Severity Reaction Status Date / Time No Known Allergies Allergy Verified 12/16/21 13:40 Family History Sister Diabetes Hypertension Father Hypertension Mother Cancer Surgical History History of adenoidectomy History of cholecystectomy History of tonsillectomy Social History Smoking Status: Never smoker alcohol intake: never substance use type: does not use what type of physical activity do you participate in: none ROS ROS ED Constitutional Constitutional ED: Denies chills or fever(s) Eyes Eyes: Denies change in vision or diplopia ENT ENT ED: Denies rhinorrhea or sore throat Cardiovascular Cardiovascular: Denies chest pain or palpitations Respiratory/Chest Respiratory/Chest: Denies cough or dyspnea Gastrointestinal Gastrointestinal: Denies abdominal pain, diarrhea, nausea or vomiting Genitourinary Genitourinary ED: Denies dysuria or hematuria Musculoskeletal Musculoskeletal: Reports extremity pain; Denies neck pain Integumentary Reports as per HPI, rash and wounds; Denies Abrasions Neurologic Neurologic: Reports paresthesias; Denies headache(s) or weakness Psychiatric Psychiatric: Denies anxiety or suicidal thoughts EXAM Physical Exam Const Vital Signs: 12/16/21 13:40 12/16/21 13:47 12/16/21 15:43 Temperature 97.8 F 97.8 F Temperature Source Temporal Temporal Pulse Rate 100 100 90 Respiratory Rate 16 16 19 H Blood Pressure 129/76 H 129/76 H 149/58 H Blood Pressure Mean 93 93 88 Pulse Ox 96 96 99 Oxygen Delivery Method Room Air Room Air Room Air Positive well nourished, well developed and obese General Appearance ED: well developed and NAD Nutritional Appearance: obese HEENT Reports moist mucous membranes normocephalic and atraumatic Eyes PERRL and EOMs intact bilaterally Neck full ROM and supple Resp normal respiratory effort and clear to auscultation bilaterally Cardio regular rate, regular rhythm and no murmurs Rate: Negative for tachycardic GI non-tender and non-distended Auscultation: normoactive bowel sounds Palpation: soft Back/Spine normal ROM and normal to inspection General Back: other FROM Extremity Extremity Narrative: Postoperative wound infection right foot at the stump where the fifth digit was amputated, there is small amount of dark black skin, no subcutaneous emphysema, no active discharge but it is moist, surrounded by blanching erythema and tenderness, with tender lymphangitis progressing up the dorsum of the foot to the midfoot but not to the ankle or beyond. Neuro oriented x3 and no focal motor deficits Neuro Narrative: Decreased sensation both distal feet Sensorium / Orientation: alert Motor Exam: strength 5/5 throughout Psych mental status grossly normal and thought process normal Skin no wounds Rashes: no rashes MDM MDM MDM Narrative Medical decision making narrative: Reviewed the multiple culture results from several days ago. It is polybacterial, involving both Proteus and E. coli. She had MRSA infection when she had her amputation along with other bacteria. Therefore while I obtained studies here to evaluate for the possibility of osteomyelitis, patient was treated empirically with vancomycin 50 mg/kg IV. Reviewed the labs and the x- ray, 3 views of mitral rotation no bony abnormality, radiology in agreement. Discussed options with the patient, when discussing admission versus outpatient treatment she prefers outpatient if possible. Discussed with Dr. Corona who was covering for Dr. Zuñiga, since both of these are sensitive to Levaquin that he recommends continuing that, and adding linezolid which we confirmed with the pharmacy that the patient is able to get with a prescription at a reasonable cost of $25. Patient is due to follow-up with Dr. Zuñiga later this week. Lab Data Attestation: I reviewed the patient's lab results. Labs: Laboratory Results - last 24 hr 12/16/21 12/16/21 14:11 14:11 WBC 11.5 H RBC 3.92 L Hgb 11.5 L Hct 36.4 L MCV 92.9 MCH 29.3 MCHC 31.6 L RDW Std Deviation 46.9 H RDW Coeff of Bety 13.7 Plt Count 327 MPV 11.4 Immature Gran % (Auto) 0.500 Neut % (Auto) 69.7 Lymph % (Auto) 20.7 Parmer % (Auto) 7.8 Eos % (Auto) 1.1 Baso % (Auto) 0.2 Absolute Neuts (auto) 8.0 H Absolute Lymphs (auto) 2.39 Nucleated RBC % 0 ESR 85 H Sodium 139 Potassium 4.0 Chloride 108 H Carbon Dioxide 25.0 Anion Gap 6 BUN 31 H Creatinine 1.46 H Estim Creat Clear Calc 30.42 Est GFR (MDRD) Af Amer 45 L Est GFR (MDRD) Non-Af 37 L BUN/Creatinine Ratio 21.2 H Glucose 139 H Calcium 9.4 C-React Prot Ext Range 139.00 H Radiography Diagnostic Testing: Clinical Impression(s) from Imaging Studies Foot X-Ray 12/16/21 14:30 IMPRESSION: Status post amputation of the fifth toe with overlying soft tissue swelling and vascular calcification. Electronically Signed: Gokul Schulte MD at 14:44 EST , Discharge Plan Triage Chief Complaint: Wound ED Provider: Chauncey Schwab Dx/Rx/DC Orders Clinical Impression: Diabetic infection of right foot, Type 2 diabetes mellitus with diabetic polyneuropathy Instructions: Diabetes Foot Infections Tx Prescriptions: New linezolid 600 mg tablet 600 mg PO Q12H 10 Days Qty: 20 0RF Continued CuraLin tablet See Rx Instructions .ROUTE .COMPLEX Rx Instructions: OTC supplement 2 tabs with each meal; OTC supplement 2 tabs with each meal aspirin [Margarita Chewable Aspirin] 81 mg tablet,chewable 81 mg PO DAILY insulin glargine-yfgn 100 unit/mL (3 mL) insulin pen See Rx Instructions subcut BID Rx Instructions: 22 units subcutaneously twice a day; Take 15 U twice daily if not eating or if nausea and vomiting insulin lispro [Humalog KwikPen Insulin] 100 unit/mL Insulin Pen 16 unit subcut TIDAC Qty: 15 1RF Rx Instructions: take only with meals acetaminophen [Tylenol] 325 mg Tablet 650 mg PO Q6H PRN PRN (Reason: Pain 1-10 Or Fever) Qty: 0 0RF metformin 1,000 mg tablet 1,000 mg PO BID Qty: 60 1RF lisinopril 10 mg tablet 10 mg PO DAILY Qty: 90 3RF propranolol 80 mg capsule,extended release 24 hr 80 mg PO DAILY Qty: 90 0RF Rx Instructions: Daily in the A.M. ferrous sulfate 325 mg (65 mg iron) tablet 325 mg PO DAILY Qty: 90 3RF multivitamin Tablet 1 tab PO DAILY Qty: 90 3RF Primary Care Provider: Keshav Lambert Referrals: Keshav Lambert, DO [Primary Care Provider] - Elie Zuñiga DPM [Med Staff - Active Staff] - Keep Ophelia appointment (If you do not already have an appointment he wants to see you within the next couple days call the office) Activity Restrictions/Additional Instructions: Of note, the only pharmacy we could find this at only has 10 pills, you need 20. If they can only give you 10, take them 1 pill twice a day until gone, they can get you more get them, otherwise see your hand spray operator. Hold the doxycycline for now and continue taking the Levaquin along with the new antibiotic. Disposition Disposition: Home, Self Care
[2021-12-16 14:22] LABS: Erythrocyte Sedimentation Rate 85 mm/hr (0-30)
[2021-12-16 14:24] LABS: Absolute Lymphocyte Count 2.39 X10^3/uL (0.83-4.51); Basophil# 0.02 X10^3/uL; Basophil% 0.2 % (0-1); Eosinophil# 0.13 X10^3/uL; Eosinophils% 1.1 % (0-5); Hematocrit 36.4 % (37-47); Hemoglobin 11.5 g/dL (12.0-15.0); Lymphocyte # 2.39 X10^3/ul (0.83-4.51); Lymphocyte % 20.7 % (19-41); Mean Corp Hgb Conc 31.6 g/dL (32-36); Mean Corpuscular Hgb 29.3 pg (27.0-32.0); Mean Corpuscular Volume 92.9 fL (81-99); Mean Platelet Vol. 11.4 fl (6.2-12.0); Monocyte% 7.8 % (0-10); NRBC Flagged by Analyzer 0 % (0-5); Neutrophil # 8.04 X10^3/uL (2.7-7.7); Neutrophil % 69.7 % (47-70); Platelet Count 327 K/mm3 (150-450); RBC Distribution Width CV 13.7 % (11.6-14.6); RBC Distribution Width SD 46.9 fl (35.1-43.9); Red Blood Count 3.92 M/mm3 (4.2-5.4); White Blood Count 11.5 K/mm3 (4.4-11.0)
--- NOTE | 2021-12-16 14:30 | RAD_ITS ---
STUDY: X-RAY - RIGHT FOOT CLINICAL: Female, 76 years old. Infection TECHNIQUE: 3 view(s) of the foot. COMPARISON: Comparison is made with prior study 11/12/2001. FINDINGS: There is an enthesophyte involving the posterior superior calcaneus at the site of insertion of the Achilles tendon. Plantar spur. Normal visualized subtalar, talonavicular, calcaneocuboid, tarsal and tarsometatarsal articulations. Normal metatarsi. There is degenerative arthrosis of the metatarsophalangeal joint of the hallux with a hallux valgus deformity. Normal tibial and fibular sesamoid bones. Normal interphalangeal joint of the great toe. Normal phalanges of the great toe. Normal second through fifth metatarsophalangeal joints. The patient is status post amputation of the fifth toe. Diffuse soft tissue swelling more prominent overlying the head of the fifth metatarsal. Vascular calcification. RAD/Foot min 3 Views IMPRESSION: Status post amputation of the fifth toe with overlying soft tissue swelling and vascular calcification. Electronically Signed: Gokul Schulte MD at 14:44 EST ,
[2021-12-16 14:34] LABS: Anion Gap 6 (5-15); BUN 31 mg/dL (7-18); BUN/Creat Ratio 21.2 RATIO (10-20); Calcium,Total 9.4 mg/dL (8.5-10.1); Chloride 108 mmol/L (98-107); Creatinine, Serum 1.46 mg/dL (0.55-1.02); EST Glomerular Filtration Rate 37 mL/min (>60); Est Glom Filt Rate - Afr Amer 45 mL/min (>60); Estimated Creatinine Clearance 30.42 ml/min; Glucose 139 mg/dL (74-106); Sodium Level 139 mmol/L (136-145)
[2021-12-16 15:43] VITALS: BP 149/58; PULSE 90; RESP 19; O2SAT 99
[2021-12-16 16:55] VITALS: BP 136/50; PULSE 92; RESP 18; O2SAT 96
--- NOTE | 2021-12-16 17:00 | CM.ED ---
SW was advised that patient will need antibiotic Linezolid. SW called [facility] outpatient pharmacy and waited 11 minutes on line with no response. SWATI called [facility]. They have 10 pills 600mg for 24.88. updated. Unique HOFF
== END 2021-12-16 17:39 | disposition home or self-care (01) ==
PROVIDERS: Emergency Provider Emergency Medicine; PCP Family Medicine; Visit Provider Emergency Medicine
DX: T87.43 Infection of amputation stump, right lower extremity (principal); Z89.421 Acquired absence of other right toe(s); E11.22 Type 2 diabetes mellitus with diabetic chronic kidney disease; E11.42 Type 2 diabetes mellitus with diabetic polyneuropathy; Y83.5 Amputation of limb(s) as the cause of abnormal reaction of the patient, or of later complication, without mention of misadventure at the time of the procedure; N18.2 Chronic kidney disease, stage 2 (mild); Z79.82 Long term (current) use of aspirin; Z79.84 Long term (current) use of oral hypoglycemic drugs; Z79.899 Other long term (current) drug therapy
CPT/HCPCS: 73630; 80048; 85025; 85652; 86140; 96365; 96366; 99283; J7040; J7050; A4216

== ENCOUNTER → 2022-01-07 | Outpatient (CLI) | payer OTHER, SELFPAY ==
[2022-01-07 12:38] LABS: Absolute Lymphocyte Count 2.49 X10^3/uL (0.83-4.51); Absolute Neutrophil Count 8.8 X10^3/uL (2.0-7.7); Basophil# 0.04 X10^3/uL; Basophil% 0.3 % (0-1); Eosinophil# 0.33 X10^3/uL; Eosinophils% 2.6 % (0-5); Hematocrit 35.3 % (37-47); Hemoglobin 10.9 g/dL (12.0-15.0); Lymphocyte # 2.49 X10^3/ul (0.83-4.51); Lymphocyte % 19.8 % (19-41); Mean Corp Hgb Conc 30.9 g/dL (32-36); Mean Corpuscular Hgb 28.7 pg (27.0-32.0); Mean Corpuscular Volume 92.9 fL (81-99); Mean Platelet Vol. 11.6 fl (6.2-12.0); Monocyte% 7.1 % (0-10); NRBC Flagged by Analyzer 0 % (0-5); Neutrophil # 8.75 X10^3/uL (2.7-7.7); Neutrophil % 69.5 % (47-70); Platelet Count 453 K/mm3 (150-450); RBC Distribution Width CV 14.6 % (11.6-14.6); RBC Distribution Width SD 49.2 fl (35.1-43.9); White Blood Count 12.6 K/mm3 (4.4-11.0)
[2022-01-07 14:02] LABS: Hemoglobin A1c 7.9 % (3.8-5.6)
== END | disposition home or self-care (01) ==
LOC: BIMLAB 11:50
PROVIDERS: PCP Family Medicine; Referring Provider Family Medicine; Visit Provider Family Medicine
DX: D50.9 Iron deficiency anemia, unspecified (principal); E11.9 Type 2 diabetes mellitus without complications
CPT/HCPCS: 36415; 83036; 85025

== ENCOUNTER 2022-01-17 11:14 | Day surgery (SDC) | payer SELFPAY, OTHER ==
[2022-01-17] VITALS (9 sets, daily range): BP systolic 75–147; BP diastolic 43–60; PULSE 56–62; RESP 15–16; TEMP 36.4–36.7; O2SAT 95–98; BMI 37.8
--- NOTE | 2022-01-17 | BON_PTH ---
PATIENT: LUC HODGES [place] [facility] [place][id number] AGE/SX: 76/F ROOM: RE01/17/[address]: Dr. Elie Zuñiga DPM : 1945 BED: DIS: 01/17/2022 SPEC #: [id number] RECD: 01/17/22 15:50 STATUS: SANDEEP REQ #: [id number] LORENZA: 01/17/22 00:[address]: Elie Zuñiga DEPT: SURGICAL PATHOLOGY RECD BY: Osiel Nixon ENTERED: 01/20/22 10:29 SP TYPE: Bone OTHR DR: Dr. Keshav Lambert, DO Tissues: A - Toe, NOS B - Bone of foot, NOS C - Bone of foot, NOS Procedures: Decalcification bone/plaque Surgery Specimen Level III HEADER OPERATION: Incision, drainage abscess, debridement of necrotic tissue PRE-OP DIAGNOSIS: Nonhealing necrotic right fifth metatarsal TISSUE SUBMITTED: A ? Soft tissue right fifth metatarsal, B ? Bone right fifth metatarsal, C - Right fifth metatarsal clearance fragment MICROSCOPIC DIAGNOSIS A. Soft tissue right fifth metatarsal: Ulceration, acute inflammation and abscess formation. B. Bone right fifth metatarsal: Acute osteomyelitis. C. Right fifth metatarsal clearance fragment: Fragments of bone with acute osteomyelitis. SHAUN:rosario 01/23/2022 MICROSCOPIC DESCRIPTION Slides are reviewed. GROSS DESCRIPTION A - Received in fixative is one container labeled with the patient's name and designated soft tissue right fifth metatarsal. The specimen consists of a piece of skin with underlying tissue measuring 4 x 2 x 1.5 cm. The skin surface shows extensive area of ulceration. Key Worker sections are submitted in one cassette. B - Received in fixative is one container labeled with the patient's name and designated bone right fifth metatarsal. The specimen consists of a piece of bone measuring 1.2 x 1 x 0.4 cm. Also present in the container are two pieces of soft tissue measuring in aggregate 2 x 0.5 x 0.3 cm. The entire specimen is submitted in one cassette after decalcification. C - Received in fixative is one container labeled with the patient's name and designated right fifth metatarsal clearance fragment. The specimen consists of multiple irregular fragments of bone that in aggregate measure 2 x 1.5 x 0.5 cm. The specimen is totally submitted in one cassette after decalcification. / SHAUN:rosario 01/20/2022 TC:2 CPT: 19429 x3, 24834 x2
[2022-01-17] MEDS: Lactated Ringers 1,000 ML 15 ML IV (12:05)
[2022-01-17 12:46] LABS: Bedside Glucose 164 mg/dL (74-106)
[2022-01-17] MEDS: Cefazolin 2 GM in 0.9% Normal Saline 100 ML IV (13:05)
[2022-01-17] MEDS: Lidocaine 1% (20 ml mdv) 20 ML Vial (13:25)
--- NOTE | 2022-01-17 14:00 | RAD_ITS ---
EXAM: XR RIGHT FOOT, 2 VIEWS CLINICAL INDICATION: DRAINAGE ABSCESS, DEBRIDEMENT OF NECROTIC TISSUE WITH POSS 5TH RAY RESECTION OF FOOT TECHNIQUE: Frontal and lateral views of the right foot. This report was created using [employer] report generation technology. COMPARISON: None. FINDINGS: Fluoroscopic spot views of the right foot obtained in the OR during surgical resection of the fifth metatarsal. Total fluoroscopy time of 20 seconds and total dose of 2.30 cGycm2. See operative note for additional information. RAD/Foot 2 Views IMPRESSION: As above. Electronically Signed: Catalino Aguirre MD at 8:22 EST ,
--- NOTE | 2022-01-17 15:26 | DCINST_ITS ---
Discharge Instructions Diet Discharge Diet: No restrictions Activity Discharge Activity: May Shower (With cast bag covering right lower extremity) Weight Bearing Status: No weight bearing (To remain nonweightbearing to right lower extremity with assistance of a wheelchair) Keep extremity elevated above heart level: Right Leg (Elevate right lower extremity at all times of rest) Dressing / Incision Call your doctor if you observe: Fever of 101 or Higher, Shortness of breath, Calf discomfort and Uncontrolled pain Change Dressing in: leave in place till F/U (Do not change dressing) Remove Dressing in: leave in place till F/U (Do not change dressing. Physician will change at first postoperative visit) Cleanse incision/area with: Do not get Incision Wet and Keep Dressing Clean & Dry (Keep dressings clean, dry, and intact to the right foot) Follow Up Care Please Follow Up With: Elie Zuñiga DPM When: 3 to 5 days Test Results: Test results from this visit will be discussed in further detail at your follow- up appointment, if applicable. Discharge Plan Admission Attending Provider: Elie Zuñiga Primary Care Provider: Keshav Lambert Discharge Orders/Prescriptions Prescriptions: New oxycodone-acetaminophen 5-325 mg tablet 1 tab PO Q6H PRN (Reason: pain) 7 Days Qty: 28 0RF Rx Instructions: Take 1 tablet every 6 hours as needed postoperative pain No Action aspirin [Amrgarita Chewable Aspirin] 81 mg tablet,chewable 81 mg PO DAILY metformin 1,000 mg tablet 1,000 mg PO BID Qty: 60 4RF insulin glargine-yfgn 100 unit/mL (3 mL) insulin pen See Rx Instructions subcut BID Qty: 1 0RF Rx Instructions: 22 units subcutaneously twice a day; Take 15 U twice daily if not eating or if nausea and vomiting lisinopril 10 mg tablet 10 mg PO DAILY Qty: 90 3RF propranolol 80 mg capsule,extended release 24 hr 80 mg PO DAILY Qty: 90 1RF Rx Instructions: Daily in the A.M. as needed for tremor acetaminophen [Tylenol] 325 mg Tablet 650 mg PO Q6H PRN PRN (Reason: Pain 1-10 Or Fever) Qty: 0 0RF ascorbic acid (vitamin C) [Vitamin C] 500 mg Tablet 500 mg PO DAILY ferrous sulfate 325 mg (65 mg iron) tablet 325 mg PO DAILY Qty: 90 3RF multivitamin Tablet 1 tab PO DAILY Qty: 90 3RF Referrals / Follow Up: Keshav Lambert DO [Primary Care Provider] - Disposition Disposition (needs filled in before D/C Order can be placed): Home, Self Care
--- NOTE | 2022-01-17 15:31 | OP.PCM_ITS ---
Problems Associated Problem List Diagnoses (1) Osteomyelitis of right foot: (2) Type 2 diabetes mellitus with diabetic polyneuropathy: Report of Operation Date of Procedure: 01/17/22 Pre-Operative Diagnosis: 1. Diabetic Ulceration with necrosis of tissue, Right foot Post-Operative Diagnosis: 1. Osteomyelitis of the 5th metatarsal head, Right foot 2. Diabetic ulceration with necrosis of tissue, Right foot Surgery/Procedure Performed:: 1. Partial fifth ray amputation, right foot 2. Incision and drainage with wide debridement of necrotic tissue, right foot 3. Application of wound VAC right foot Description of Surgical Findings:: See operative note for findings Surgeon: Elie Zuñiga cdl truck driver: Archie Tolentino DPM PGY-1 Type of Anesthesia: Local (10 cc 1:1 mixture of 1% lidocaine plain and 0.25% Marcaine plain) and MAC Specimen's removed: 1. Tissue fifth metatarsal, right foot 2. Bone fifth metatarsal, right foot Drains: None Estimated Blood Loss (mL): 30mL Description of Procedure: HPI: Patient is a 74-year-old female with history of diabetes mellitus type 2 with peripheral polyneuropathy and amputation of the fifth digit of the right foot on 11/12/2021. Patient had done very well following surgical procedure for amputation of the fifth digit however during third week of recovery had left her foot down causing increased swelling and with ambulation suffered surgical wound dehiscence. Sutures were removed and local wound care was performed however patient did develop local superficial cellulitis which was resolved via oral antibiotics. Despite resolution of her cellulitis she did develop tissue necrosis of the surgical site with fifth metatarsal head probing to bone. Site did not demonstrate any purulent drainage, abscess formation/palpable fluctuance, or malodor. Radiographs were negative for osteomyelitis. Discussion was had with family for surgical debridement of the site with possible resection of the fifth metatarsal head due site probing directly to bone. Patient and family were in agreement with this plan. Surgical discussion was had with patient and family. It was discussed that this is not an elective procedure and is a limb salvage case, they voiced understanding of this. I discussed the procedure in great detail. The risks and complications were discussed in detail but not limited to the following: Infection, nerve injury/neuritis, phantom limb pain, delayed healing or nonhealing, persistent symptoms of pain, swelling, scar tissue, poor cosmetic result,, recurrence, the need for additional surgery, CRPS, difficulty wearing shoes, blood clot, allergic reaction, loss of function, loss of limb, loss of life. Patient and family were able to repeat these back. They voiced understanding of these risks. Patient was scheduled to undergo incision and drainage with wide debridement of tissue and possible partial resection of the fifth metatarsal with application of wound VAC at [facility] on 01/17/2022. Surgical procedure: Under mild sedation patient was brought into the operating room placed on the table in the supine position. Following IV induction of anesthesia a pneumatic thigh tourniquet was placed about the patient's right thigh. A local anesthetic block was then performed about the fifth metatarsal base consisting of 10 cc 1:1 mixture of 1% lidocaine plain and 0.25% Marcaine plain. The right foot was then scrubbed, prepped, and draped in the usual aseptic manner. The right foot was elevated and the pneumatic thigh tourniquet was inflated to 300 mmHg. At this time attention was directed to the lateral aspect of the fifth metatarsal where there was an ulceration noted with surrounding dry, gangrenous, necrotic tissue. No palpable fluctuance or abscess formation was noted piror to incision. A linear incision was made proximal near the midshaft of the fifth metatarsal and extended distally encompassing the ulceration site. Incision was deepened to bone and the necrotic tissue overlying the fifth metatarsal head was excised in toto. No purulent drainage or abscess was noted at incision or throughout the duration of this case. The necrotic tissue was split into 2 halves for culture with 1 section being sent to microbiology and the other section sent to pathology for analysis. Next all surrounding tissue about the fifth metatarsal was debrided sharply to healthy viable bleeding tissue. The fifth metatarsal head was then examined and noted to be dusky and frias in color. The fifth metatarsal head did demonstrate some softness consistent with early osteomyelitis. Next a bone cutter was utilized to resect the head of the fifth metatarsal at the surgical neck. This bone was sectioned into 2 halves for culture with 1 being sent to microbiology and the second half being sent to pathology for analysis. At this time the surgical site was irrigated with copious amounts of normal sterile saline. The site was reexamined for any necrotic tissue and the remaining tissue was healthy in appearance with viable bleeding. At this time new gloves were donned and fresh sterile equipment was utilized throughout the duration of this case. Next a sagittal saw was utilized to resect the fifth metatarsal shaft proximally to a healthy viable portion of bone. During resection the bone was noted to be hard and of good quality. The section of bone was split into 2 halves for culture as a clearance fragment with 1 being sent to microbiology and the other being sent to pathology for analysis. Next the remaining tendon structures of extensors and flexors were identified and transected as far proximal as possible. The site was again irrigated with copious amounts of normal sterile saline. At this time with the remaining portion of bone being of good coloration and hardness in the remaining surrounding tissue being of healthy appearance with viable bleeding the proximal aspect of the incision site was closed in the subcutaneous layer with a 4-0 Monocryl and the skin reapproximated with a 3-0 Prolene. At this time the remaining ulcerative site at distal amputation stump measured 5.3 cm x 4.7 cm x 1.5 cm. Ulcerative site was noted to be a Murray stage III. At this time the pneumatic thigh tourniquet was deflated and a prompt hyperemic response was noted to the digits of the right foot. No bleeders were identified. A wound VAC was then applied to the distal amputation stump site. Once VAC was in place with seal established the VAC was turned on and set to 125 mmHg of continuous pressure. No leaks were detected. The surgical site was then dressed with 4 x 4 gauze, Kerlix, and Didier wrap rolled onto the foot. The patient tolerated the anesthesia and procedure well. She was then transported to PACU with vital signs stable and vascular status intact to the right foot. Discussion was had with family and patient that she is to remain nonweightbearing to the right foot with assistance of wheelchair. She is to keep the dressings clean, dry, and intact to the right foot and will follow-up in office for her first wound VAC change. Patient and family understand her postoperative care instructions. Discharge instructions outlining her postoperative care was given to the family. She will follow-up in office next week for continued postoperative care and wound VAC change. Grafts/Implants Used: None Complications None Admit VTE Documentation VTE Present on Admission: No VTE Mechan Device Prophylaxis: SCD's VTE Pharm Prophylaxis ordered?: No Reason prophylaxis not ordered:: Procedure Not Indicated
--- NOTE | 2022-01-17 15:32 | RAD_ITS ---
EXAM: XR RIGHT FOOT COMPLETE, 3 OR MORE VIEWS CLINICAL INDICATION: Postoperative TECHNIQUE: Frontal, lateral and oblique views of the right foot. This report was created using [employer] report generation technology. COMPARISON: XR Foot dated 12/16/2021 FINDINGS: BONES/JOINTS: Interval resection of the distal portion of the fifth metatarsal. SOFT TISSUES: No soft tissue gas. TUBES, LINES AND DEVICES: Surgical drain in place along the resection site. RAD/Foot min 3 Views IMPRESSION: Satisfactory postop changes. Electronically Signed: Catalino Aguirre MD at 16:16 EST ,
== END 2022-01-17 16:55 | disposition home or self-care (01) ==
LOC: SDC 11:19 → AC 11:22
PROVIDERS: PCP Family Medicine; Referring Provider Student in an Organized Health Care Education/Training Program; Visit Provider Student in an Organized Health Care Education/Training Program
PROC: (CPT 28810; principal; 2022-01-17 12:50)
DX: E11.69 Type 2 diabetes mellitus with other specified complication (principal); E11.621 Type 2 diabetes mellitus with foot ulcer; L97.512 Non-pressure chronic ulcer of other part of right foot with fat layer exposed; M86.171 Other acute osteomyelitis, right ankle and foot; E11.42 Type 2 diabetes mellitus with diabetic polyneuropathy; E11.22 Type 2 diabetes mellitus with diabetic chronic kidney disease; N18.2 Chronic kidney disease, stage 2 (mild); D50.9 Iron deficiency anemia, unspecified; Z79.82 Long term (current) use of aspirin; Z79.84 Long term (current) use of oral hypoglycemic drugs; Z79.899 Other long term (current) drug therapy
CPT/HCPCS: 28810; 73620; 73630; 76000; 82962; 87015; 87070; 87075; 87077; 87102; 87116; 87186; 87205; 87206; 88304; 88311; J7120; J2405

== ENCOUNTER 2022-01-28 09:24 | Inpatient (IN) | payer OTHER, SELFPAY ==
[2022-01-28] VITALS (11 sets, daily range): BP systolic 92–140; BP diastolic 42–88; PULSE 70–85; RESP 16–18; TEMP 36.4–37.1; O2SAT 94–100; BMI 37.8
--- NOTE | 2022-01-28 10:20 | RAD_ITS ---
STUDY: X-RAY - RIGHT FOOT CLINICAL: Female, 76 years old. infection WOUND VAC IN PLACE FOR RECENT SURGERY TO 5TH MT TECHNIQUE: 4 view(s) of the foot. COMPARISON: X-ray of the right foot dated January 17, 2022 FINDINGS: No visualized acute fracture or evidence of active osteomyelitis is seen on the current study. The mid to distal half of the fifth metatarsal bone has been previously amputated, as well as the phalanges of the fifth digit. Previously seen external suction device of the fifth digit soft tissue stump is no longer present. Mild soft tissue swelling in the small amount of subcutaneous air is present in the soft tissue amputation defect of the fifth digit. The bony structures are mildly demineralized. Atherosclerotic calcifications are present. A moderate-sized jamar are calcaneal spur is present as well. Normal talus, calcaneus, and tarsal bones. Normal visualized subtalar, talonavicular, calcaneocuboid, tarsal and tarsometatarsal articulations. Normal metatarsi. RAD/Foot min 3 Views IMPRESSION: 1. Soft tissue swelling and subcutaneous air at the previous surgical site. Electronically Signed: Desean Ugalde MD at 10:47 EST ,
--- NOTE | 2022-01-28 10:21 | EDS_ITS ---
HPI History of Present Illness Chief Complaint: Wound Check Narrative Narrative: Patient presents with foul-smelling right foot status post debridement and amputation of the right fifth great toe which happened about a week and a half ago. She has history of diabetes with polyneuropathy. She is brought in by family, she was supposed to be started on antibiotics yesterday but has not filled the prescription yet. [facility] Medical History Cardiology follow-up encounter Chronic ulcer of great toe of right foot with necrosis of muscle CKD stage 2 due to type 2 diabetes mellitus Delayed wound healing Diabetes mellitus with diabetic polyneuropathy Diabetic ulcer of left foot with fat layer exposed Dietary restriction History of amputation of toe History of stress test Hyperglycemia due to type 2 diabetes mellitus Incomplete left bundle branch block Lesion of lumbar spine Low iron Non-smoker Normocytic anemia Redness of skin Spinal stenosis, lumbar SVT (supraventricular tachycardia) Type 2 diabetes mellitus Type 2 diabetes mellitus with foot ulcer Ulcer of right foot with fat layer exposed Vitreous hemorrhage of left eye Wears dentures Wears glasses Home Medications aspirin 81 mg chewable tablet (Margarita Chewable Low Dose Aspirin) 81 mg PO DAILY heart health 02/22/20 [History Last Taken Unknown] acetaminophen 325 mg tablet (Tylenol) 650 mg PO Q6H PRN PRN Pain 1-10 Or Fever #0 tabs 11/13/21 [Rx Last Taken Unknown] ferrous sulfate 325 mg (65 mg iron) tablet 325 mg PO DAILY #90 tabs 12/09/21 [Rx Last Taken Unknown] multivitamin 1 tab PO DAILY #90 tabs 12/09/21 [Rx Last Taken Unknown] insulin glargine-yfgn 100 unit/mL (3 mL) subcutaneous pen See Rx Instructions subcut BID #1 pen 01/07/22 [Rx Last Taken Unknown] lisinopril 10 mg tablet 10 mg PO DAILY #90 tabs 01/07/22 [Rx Last Taken Unknown] metformin 1,000 mg tablet 1,000 mg PO BID #60 tabs 01/07/22 [Rx Last Taken Unknown] propranolol 80 mg capsule,24 hr,extended release 80 mg PO DAILY #90 caps 01/07/22 [Rx Last Taken Unknown] ascorbic acid (vitamin C) 500 mg tablet (Vitamin C) 500 mg PO DAILY 01/13/22 [History Last Taken Unknown] oxycodone-acetaminophen 5 mg-325 mg tablet 1 tab PO Q6H PRN pain 7 days #28 tabs 01/17/22 [Rx Last Taken Unknown] Allergy/AdvReac Type Severity Reaction Status Date / Time No Known Allergies Allergy Verified 01/28/22 09:27 Family History Sister Diabetes Hypertension Father Hypertension Mother Cancer Surgical History History of adenoidectomy History of cholecystectomy History of eye surgery History of tonsillectomy Social History Smoking Status: Never smoker alcohol intake: never substance use type: does not use what type of physical activity do you participate in: none ROS ROS ED ROS Narrative Past medical history: Colitis, hypertension, hyperlipidemia, history of SVT Medications: Reviewed Social history: Noncontributory Review of systems: All systems negative except as indicated General: No fever Eyes: No visual changes ENT: No upper airway congestion, normal voice Neck: No neck pain Cardiovascular: No chest pain Respiratory: No shortness of breath or cough Gastrointestinal: No abdominal pain, nausea vomiting or diarrhea Genitourinary: No dysuria Musculoskeletal: Foot pain and foul-smelling discharge as in HPI Skin: No lymphangitic streaking, no redness outside the wound. Neurological: No memory loss, confusion or any focal weakness Psych: No recent behavioral changes Hematologic: No easy bleeding or easy bruising EXAM Physical Exam Narrative Exam Narrative: Physical exam General: Patient appears relatively comfortable Head: Normocephalic, Atraumatic Eyes: Conjunctiva not pale ENT: Moist mucous membranes Neck: Supple, Nontender, No lymphadenopathy Cardiovascular: Regular rate, Regular rhythm Respiratory: No distress, CTA bilaterally Abdomen: Soft, Nontender, Nondistended Back: Nontender, Normal Inspection. Negative for: CVA tenderness Extremities: There is a wound VAC however there is some foul-smelling discharge there is no overlying cellulitis. Skin: Normal color, No rash Neurological: Alert, Normal Strength, Normal Sensation Psychological: Normal affect Const Vital Signs: 01/28/22 09:24 01/28/22 09:26 01/28/22 10:26 Temperature 98 F 97.6 F L 97.5 F L Temperature Source Temporal Temporal Temporal Pulse Rate 74 77 78 Respiratory Rate 18 18 16 Blood Pressure 123/64 H 129/57 H 124/58 H Blood Pressure Mean 83 81 80 Pulse Ox 100 96 98 Oxygen Delivery Method Room Air Room Air Room Air [facility] Lab Data Labs: Laboratory Results - last 24 hr 01/28/22 01/28/22 01/28/22 10:05 10:05 10:05 WBC 16.6 H RBC 2.82 L Hgb 7.8 L Hct 25.9 L MCV 91.8 MCH 27.7 MCHC 30.1 L RDW Std Deviation 47.9 H RDW Coeff of Bety 14.2 Plt Count 674 H MPV 10.4 Immature Gran % (Auto) 0.700 Neut % (Auto) 73.7 H Lymph % (Auto) 14.6 L Potter % (Auto) 9.0 Eos % (Auto) 1.7 Baso % (Auto) 0.3 Absolute Neuts (auto) 12.2 H Absolute Lymphs (auto) 2.43 Nucleated RBC % 0 ESR 33 H Sodium 137 Potassium 4.2 Chloride 104 Carbon Dioxide 27.0 Anion Gap 6 BUN 26 H Creatinine 1.38 H Estim Creat Clear Calc 30.88 Est GFR (MDRD) Af Amer 48 L Est GFR (MDRD) Non-Af 40 L BUN/Creatinine Ratio 18.8 Glucose 94 Lactic Acid 1.5 Calcium 9.3 Total Bilirubin 0.30 AST 12 L ALT 18 Alkaline Phosphatase 66 C-React Prot Ext Range 337.00 H Total Protein 7.9 Albumin 2.4 L Globulin 5.5 H Albumin/Globulin Ratio 0.4 L Radiography Diagnostic Testing: Clinical Impression(s) from Imaging Studies Foot X-Ray 01/28/22 10:20 IMPRESSION: 1. Soft tissue swelling and subcutaneous air at the previous surgical site. Electronically Signed: Desean Ugalde MD at 10:47 EST , X-ray of the foot shows a surgical site with swelling and some subcutaneous air, as interpreted by me. Treatment and Re-Evaluation Narrative: Patient has leukocytosis, CRP is quite elevated from prior. She likely has a postop wound infection. I will call podiatry and start her on antibiotics. Discharge Plan Triage Chief Complaint: Wound Check ED Provider: Pedro Finley Dx/Rx/DC Orders Clinical Impression: Postoperative wound infection, Type 2 diabetes mellitus, Osteomyelitis of right foot Prescriptions: No Action aspirin [Margarita Chewable Aspirin] 81 mg tablet,chewable 81 mg PO DAILY metformin 1,000 mg tablet 1,000 mg PO BID Qty: 60 4RF insulin glargine-yfgn 100 unit/mL (3 mL) insulin pen See Rx Instructions subcut BID Qty: 1 0RF Rx Instructions: 22 units subcutaneously twice a day; Take 15 U twice daily if not eating or if nausea and vomiting lisinopril 10 mg tablet 10 mg PO DAILY Qty: 90 3RF propranolol 80 mg capsule,extended release 24 hr 80 mg PO DAILY Qty: 90 1RF Rx Instructions: Daily in the A.M. as needed for tremor acetaminophen [Tylenol] 325 mg Tablet 650 mg PO Q6H PRN PRN (Reason: Pain 1-10 Or Fever) Qty: 0 0RF ascorbic acid (vitamin C) [Vitamin C] 500 mg Tablet 500 mg PO DAILY oxycodone-acetaminophen 5-325 mg tablet 1 tab PO Q6H PRN (Reason: pain) 7 Days Qty: 28 0RF Rx Instructions: Take 1 tablet every 6 hours as needed postoperative pain ferrous sulfate 325 mg (65 mg iron) tablet 325 mg PO DAILY Qty: 90 3RF multivitamin Tablet 1 tab PO DAILY Qty: 90 3RF Primary Care Provider: Keshav Lambert Referrals: Keshav Lambert, DO [Primary Care Provider] - Disposition Disposition: Acute Care Hospital [facility]
[2022-01-28 10:31] LABS: Erythrocyte Sedimentation Rate 33 mm/hr (0-30)
[2022-01-28 10:33] LABS: Absolute Lymphocyte Count 2.43 X10^3/uL (0.83-4.51); Absolute Neutrophil Count 12.2 X10^3/uL (2.0-7.7); Basophil# 0.05 X10^3/uL; Basophil% 0.3 % (0-1); Eosinophil# 0.28 X10^3/uL; Eosinophils% 1.7 % (0-5); Hematocrit 25.9 % (37-47); Hemoglobin 7.8 g/dL (12.0-15.0); Lymphocyte # 2.43 X10^3/ul (0.83-4.51); Lymphocyte % 14.6 % (19-41); Mean Corp Hgb Conc 30.1 g/dL (32-36); Mean Corpuscular Hgb 27.7 pg (27.0-32.0); Mean Corpuscular Volume 91.8 fL (81-99); Mean Platelet Vol. 10.4 fl (6.2-12.0); NRBC Flagged by Analyzer 0 % (0-5); Neutrophil # 12.22 X10^3/uL (2.7-7.7); Neutrophil % 73.7 % (47-70); Platelet Count 674 K/mm3 (150-450); RBC Distribution Width CV 14.2 % (11.6-14.6); RBC Distribution Width SD 47.9 fl (35.1-43.9); Red Blood Count 2.82 M/mm3 (4.2-5.4); White Blood Count 16.6 K/mm3 (4.4-11.0)
[2022-01-28 10:44] LABS: Lactic Acid 1.5 mmol/L (0.4-1.9)
[2022-01-28 10:46] LABS: ALB/GLOB Ratio 0.4 RATIO (0.9-2.4); AST(SGOT) 12 U/L (15-37); Alanine Aminotransfer ALT/SGPT 18 U/L (13-56); Albumin, Serum 2.4 g/dL (3.2-5.0); Alkaline Phosphatase 66 U/L (45-117); Anion Gap 6 (5-15); BUN 26 mg/dL (7-18); BUN/Creat Ratio 18.8 RATIO (10-20); Calcium,Total 9.3 mg/dL (8.5-10.1); Chloride 104 mmol/L (98-107); Creatinine, Serum 1.38 mg/dL (0.55-1.02); EST Glomerular Filtration Rate 40 mL/min (>60); Est Glom Filt Rate - Afr Amer 48 mL/min (>60); Estimated Creatinine Clearance 30.88 ml/min; Globulin 5.5 g/dL (2.2-4.2); Glucose 94 mg/dL (74-106); Potassium 4.2 mmol/L (3.5-5.1); Protein, Total 7.9 g/dL (6.4-8.2); Sodium Level 137 mmol/L (136-145)
--- NOTE | 2022-01-28 11:56 | NURSING ---
DR MELQUIADES PALMA
--- NOTE | 2022-01-28 12:02 | HP.PCM.HOS_ITS ---
[facility] - General General Date of Admission: 01/28/22 Date of Service: 01/28/22 Chief Complaint: Discharge and foul-smelling odor from right foot ulcer - 2 days HPI Benjamín HODGES, is a 76 F who presents with the above. She has past medical history of type II DM, complicated by peripheral neuropathy, who recently had I&D with wide debridement of necrotic tissue of the right foot as well as partial fifth ray amputation. History was taken from the family, who stated that there was difficulty in applying wound VAC since discharge. Patient was followed by home health nurse. It was noted about 2 days ago that there was a foul-smelling odor from the right foot as well as some discharge. There has not been any fever or chills or nausea vomiting or diarrhea noted. In the emergency department, blood pressure 123/64, heart rate 74, respiratory 18, temperature 98F, oxygen sat 100% on room air. WBC count was 16.6, hemoglobin was 7.8, down from 10.9, platelet count is 674, ESR elevated at 33, CRP 337, CMP significant for BUN of 26, creatinine 1.38, improved from previous 1.46. X-ray of the foot showed soft tissue swelling and subcutaneous air at the previous surgical site. [facility] Medical History Cardiology follow-up encounter Chronic ulcer of great toe of right foot with necrosis of muscle CKD stage 2 due to type 2 diabetes mellitus Delayed wound healing Diabetes mellitus with diabetic polyneuropathy Diabetic ulcer of left foot with fat layer exposed Dietary restriction History of amputation of toe History of stress test Hyperglycemia due to type 2 diabetes mellitus Incomplete left bundle branch block Lesion of lumbar spine Low iron Non-smoker Normocytic anemia Redness of skin Spinal stenosis, lumbar SVT (supraventricular tachycardia) Type 2 diabetes mellitus Type 2 diabetes mellitus with foot ulcer Ulcer of right foot with fat layer exposed Vitreous hemorrhage of left eye Wears dentures Wears glasses Home Medications acetaminophen 325 mg tablet (Tylenol) 650 mg PO Q6H PRN PRN Pain 1-10 Or Fever #0 tabs 11/13/21 [Rx Last Taken Unknown] ascorbic acid (vitamin C) 500 mg tablet (Vitamin C) 500 mg PO DAILY SUPPLEMENT 01/13/22 [History Last Taken 01/27/22] oxycodone-acetaminophen 5 mg-325 mg tablet 1 tab PO Q6H PRN pain 7 days #28 tabs 01/17/22 [Rx Last Taken 01/28/22] aspirin 325 mg tablet 325 mg PO DAILY BP 01/28/22 [History Last Taken 01/27/22] ferrous sulfate 325 mg (65 mg iron) tablet 325 mg PO DAILY ANEMIA 01/28/22 [History Last Taken 01/27/22] garlic 100 mg tablet 10 mg PO DAILY SUPPLEMENT 01/28/22 [History Last Taken 01/27/22] insulin glargine-yfgn 100 unit/mL (3 mL) subcutaneous pen See Rx Instructions subcut BID BLOOD SUGAR 01/28/22 [History Last Taken 01/28/22] lisinopril 10 mg tablet 10 mg PO DAILY BP 01/28/22 [History Last Taken 01/27/22] metformin 1,000 mg tablet 1,000 mg PO BID BLOOD SUGAR 01/28/22 [History Last Taken 01/27/22] multivitamin 1 tab PO DAILY SUPPLEMENT 01/28/22 [History Last Taken 01/27/22] propranolol 80 mg capsule,24 hr,extended release 80 mg PO DAILY PRN TREMORS 01/28/22 [History Last Taken 01/27/22] Allergy/AdvReac Type Severity Reaction Status Date / Time No Known Allergies Allergy Verified 01/28/22 09:27 Family History Sister Diabetes Hypertension Father Hypertension Mother Cancer Surgical History History of adenoidectomy History of cholecystectomy History of eye surgery History of tonsillectomy Social History Smoking Status: Never smoker alcohol intake: never substance use type: does not use what type of physical activity do you participate in: none ROS ROS Narrative Patient appears lethargic Review of Systems ROS Unobtainable: due to encephalopathy Vital Signs Vital Signs Vital Signs: 01/28/22 09:24 01/28/22 09:26 01/28/22 10:26 Temperature 98 F 97.6 F L 97.5 F L Temperature Source Temporal Temporal Temporal Pulse Rate 74 77 78 Respiratory Rate 18 18 16 Blood Pressure 123/64 H 129/57 H 124/58 H Blood Pressure Mean 83 81 80 Pulse Ox 100 96 98 Oxygen Delivery Method Room Air Room Air Room Air 01/28/22 11:00 Temperature 97.9 F Temperature Source Temporal Pulse Rate 79 Respiratory Rate 18 Blood Pressure 138/88 H Blood Pressure Mean 104 Pulse Ox 97 Oxygen Delivery Method Room Air Weight Weight: 99.79 kg Body Mass Index (BMI) 37.8 Physical Exam Narrative Physical exam: General: Alert, appears lethargic, not pale, no jaundice, well-hydrated HEENT: Atraumatic Oral: Moist Mucosa Neck: Supple Lungs: Diminished to auscultation Cardiovascular: HS I+II, regular, no murmurs Abdomen: Bowel Sounds Present, Soft, Non Tender Extremities: No edema Skin: No rashes, No breakdown Neurological: Grossly intact Psych/Mental Status: Appropriate Results Lab / Micro Data Result Diagrams: 01/28/22 10:05 01/28/22 10:05 Labs: Laboratory Results - last 24 hr 01/28/22 10:05: WBC 16.6 H, RBC 2.82 L, Hgb 7.8 L, Hct 25.9 L, MCV 91.8, MCH 27.7, MCHC 30.1 L, RDW Std Deviation 47.9 H, RDW Coeff of Bety 14.2, Plt Count 674 H, MPV 10.4, Immature Gran % (Auto) 0.700, Neut % (Auto) 73.7 H, Lymph % (Auto) 14.6 L, Coryell % (Auto) 9.0, Eos % (Auto) 1.7, Baso % (Auto) 0.3, Absolute Neuts (auto) 12.2 H, Absolute Lymphs (auto) 2.43, Nucleated RBC % 0, ESR 33 H 01/28/22 10:05: Sodium 137, Potassium 4.2, Chloride 104, Carbon Dioxide 27.0, Anion Gap 6, BUN 26 H, Creatinine 1.38 H, Estim Creat Clear Calc 30.88, Est GFR (MDRD) Af Amer 48 L, Est GFR (MDRD) Non-Af 40 L, BUN/Creatinine Ratio 18.8, Glucose 94, Calcium 9.3, Total Bilirubin 0.30, AST 12 L, ALT 18, Alkaline Phosphatase 66, C-React Prot Ext Range 337.00 H, Total Protein 7.9, Albumin 2.4 L, Globulin 5.5 H, Albumin/Globulin Ratio 0.4 L 01/28/22 10:05: Lactic Acid 1.5 Radiology Impression Foot X-Ray 01/28/22 10:20 IMPRESSION: 1. Soft tissue swelling and subcutaneous air at the previous surgical site. Electronically Signed: Desean Ugalde MD at 10:47 EST Reading Location ID and State: [facility] / [place] , Service support , Assessment & Plan Assessment/Plan (1) Postoperative wound infection: (2) Osteomyelitis of right foot: PLAN: Plan 1. Acute infected right foot ulcer, osteomyelitis of the right foot, status post recent I&D and partial fifth ray amputation Patient has foul-smelling odor from ulcer. Previous intraoperative cultures grew Proteus mirabilis and staph aureus Admit to MedSurg, wound cultures, podiatry consult, infectious disease consult, Continue on IV Zosyn, add IV vancomycin, wound RN consult 2. Type II DM, complicated by peripheral neuropathy Hold metformin Continue home Lantus at 20 units BID, blood glucose checks with ISS 3. Hypertension,controlled, Hold Lisinopril, continue onpropranolol 4. Anemia, drop in hemoglobin from 10.9-7.8 likely secondary to acute blood loss from recent surgery Will check for iron stores, continue to trend 5. Obesity, lifestyle modification recommended 6. DVT prophylaxis?heparin subcu Charges/Coding Visit Charges Inpatient E&M: 00560 Init Hosp L3
--- NOTE | 2022-01-28 12:56 | NURSING ---
MED SURG [facility] POST OP INFECTION
--- NOTE | 2022-01-28 16:40 | NURSING ---
bs only 52. pt able to drink all of oj for medical technologist clinical. will recheck bs in 15min. dinner ordered for pt.
[2022-01-28 16:55] LABS: Bedside Glucose 52 mg/dL (74-106)
[2022-01-28 17:16] LABS: Bedside Glucose 78 mg/dL (74-106)
[2022-01-28 17:33] LABS: Platelet Count 675 K/mm3 (150-450); RET-HE 22.1 pg (30-35); Reticulocyte Count 1.87 % (0.5-1.5)
[2022-01-28 18:01] LABS: Ferritin 226 ng/mL (8-252); Iron 14 ug/dL (50-170); Iron Binding Capacity,Total 188 ug/dL (250-450); PERCENT IRON SATURATION 7.4 % (15.0-55.0)
[2022-01-28] MEDS: oxyCODONE 5 MG Tablet PO (18:37)
[2022-01-28] MEDS: Acetaminophen 325 MG Tablet 650 MG PO (18:37)
--- NOTE | 2022-01-28 19:06 | PHA.PHARE_ITS ---
Consult Pharmacy has been consulted to manage selected antiobiotic: Vancomycin Type of Consult: New start Suspected Infection: Osteomyelitis Labs: Sodium 137 mmol/L (136-145) 01/28/22 10:05 Potassium 4.2 mmol/L (3.5-5.1) 01/28/22 10:05 Chloride 104 mmol/L (98-107) 01/28/22 10:05 Carbon Dioxide 27.0 mmol/L (21.0-32.0) 01/28/22 10:05 Anion Gap 6 (5-15) 01/28/22 10:05 BUN 26 mg/dL (7-18) H 01/28/22 10:05 Creatinine 1.38 mg/dL (0.55-1.02) H 01/28/22 10:05 Est GFR (MDRD) Af Amer 48 mL/min (>60) L 01/28/22 10:05 Est GFR (MDRD) Non-Af 40 mL/min (>60) L 01/28/22 10:05 BUN/Creatinine Ratio 18.8 RATIO (10-20) 01/28/22 10:05 Glucose 94 mg/dL (74-106) 01/28/22 10:05 Weight used for dosin.8 kg Estimated Creatinine Clearance: 41 ML/MIN Goal Trough: 15-20 mcg/mL Pharmacy Plan for Drug Dosing: Give standard loading dose of 1500mg IV x1, then continue with 750mg IV q12h per [facility] dosing protocol. Will order a trough before the 4th total dose. The patient's CrCl of 41ml/min was calculated using an adjusted body weight. Pharmacy Service will continue to monitor and adjust dosing as required. Follow-Up Labs: Trough Vancomycin Labs to be done on [date and time ordered]: 01/30/22 06:30
[2022-01-28] MEDS: DAKIN'S SOL HALF STRENGTH (=0.25%) 1 APPLIC TOPICAL (20:58)
--- NOTE | 2022-01-28 21:01 | PCM.CONS.GEN ---
Assessment & Plan Assessment/Plan (1) Postoperative wound infection: (2) Type 2 diabetes mellitus with diabetic polyneuropathy: QUALIFIERS: Diabetes mellitus mcc insulin use: without mcc use Qualified Code(s): E11.42 - Type 2 diabetes mellitus with diabetic polyneuropathy (3) Non-pressure chronic ulcer of other part of right foot with fat layer exposed: PLAN: Plan I personally saw and evaluated patient DOS: 01/17/22, POD#11 Wound: Ulceration noted to the lateral aspect of the right foot measuring 5 cm x 3.5 cm x 1.5 cm. There is wound margin erythema noted with malodor. No purulent drainage no palpable fluctuance/bogginess no visible abscess formation, no lymphangitis. Wound bed demonstrates thick yellow fibrotic tissue with black necrotic tissue. Wound margin demonstrates black and necrotic tissue that is progressed along the lateral side of the foot to the base of the fifth metatarsal. There are 3 sutures intact to the dorsal lateral aspect of the foot. Ulcerative site previously had wound VAC applied following surgery and upon reapplying the VAC on 01/27/2022 VAC underwent subsequent failure leading to significant maceration and progression of likely diabetic foot infection. I discussed stopping wound VAC application at this time until infection resolves. Following verbal consent a local anesthetic block consisting of 10 cc of 1% lidocaine plain was performed proximal to the ulceration site and any erythema to effectively provide adequate anesthesia for the lateral aspect of the right foot. A sharp excisional debridement to the level of the subcutaneous tissue was performed utilizing a 3 mm curette and a #15 blade removing necrotic tissue, fibrous tissue, devitalized subcutaneous, biofilm, slough. 100% of the ulcerative site was debrided. Hemostasis achieved with pressure and gauze. Patient tolerated the procedure well. It is noted that during the debridement bleeding tissue was noted. Site was flushed with copious amounts of normal sterile saline. Ulcerative site was packed with Dakin's wet-to-dry dressing and dressed with Kerlix, ABD, and an Didier wrap rolled onto the foot. Infection: Postoperative wound infection as described as above underwent sharp excisional debridement to the level of subcutaneous tissue. WBC was 16.6. CRP 337 ESR elevated at 33. However it is noted patient is 11 days out postop and may account for some rise of the CRP and ESR. I do believe ulcerative site is infected. Patient on IV Vanco/Zosyn recommend continued IV antibiotics. I previously prescribed course of oral antibiotics doxycycline 100 mg twice daily and levofloxacin 500 mg twice daily however patient was unable to fill prescriptions and take the antibiotics. Infectious disease consulted, their recommendation on antibiotic management is greatly appreciated. Surgical cultures 01/17/22: Bone fifth metatarsal demonstrated Proteus mirabilis and staph aureus. Clearance fragment of the fifth metatarsal demonstrated rare Proteus mirabilis. Dressings: Dakin's wet-to-dry dressing with dry sterile dressing and Didier wrap rolled onto the foot. Nursing to change daily. Imaging: Radiographs of the right foot demonstrated soft tissue swelling and subcutaneous air at the previous surgical site. Edema: Patient to elevate right lower extremity at all times rest. Patient is to remain nonweightbearing to the right lower extremity at all times with assistance of wheelchair. She may stand using left foot for transfers/bathroom privileges. Medicine team is currently following for medical management, this is greatly appreciated. Podiatry will continue to follow while in house. At this time I do not anticipate surgical intervention following bedside debridement. I will continue to monitor for any changes. Family is aware should any changes occur operative debridement may be required in the future. Please do not hesitate to contact with any questions or concerns Elie Zuñiga Jr. D.P.M. [facility] [phone] Note: [employer] speech recognition internet marketing assistant software was used to create portions of this document. Sound-alike and misspelled words, as well as other internet marketing assistant errors may be contained in the documentation. HPI Consult Data Date of Consult: 01/28/22 HPI Narrative Reason for Consultation: Infected diabetic ulcer right foot HPI Narrative: LUC HODGES, is a 76 F who presents to [facility] ED with an infected diabetic ulceration of the right foot. 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 Patient's healing progress was noted to be well at this time, however she subsequently deteriorated with another ulceration to the lateral aspect of the right foot which subsequently became infected with necrotic tissue and subsequently underwent I&D with wide debridement of necrotic tissue of the right foot as well as a partial fifth ray amputation on 01/17/2022. Wound VAC was utilized postsurgery however difficulties with wound VAC arose and maintaining proper seal and suction. Visiting nursing was assisting in wound VAC changes. It was noted 2 days ago there became a foul odor from the wound site as well as significant serosanguineous discharge. Patient denies any nausea, vomiting, fever. She does admit to some occasional chills. Family states they were unable to fill prescribed antibiotics, doxycycline and levofloxacin. Worried for infection patient was brought into the hospital and admitted for IV antibiotics. Radiographs were performed demonstrating soft tissue swelling and subcutaneous air at the previous surgical site. Patient denies any further complaints. [facility] Medical History Cardiology follow-up encounter Chronic ulcer of great toe of right foot with necrosis of muscle CKD stage 2 due to type 2 diabetes mellitus Delayed wound healing Diabetes mellitus with diabetic polyneuropathy Diabetic ulcer of left foot with fat layer exposed Dietary restriction History of amputation of toe History of stress test Hyperglycemia due to type 2 diabetes mellitus Incomplete left bundle branch block Lesion of lumbar spine Low iron Non-smoker Normocytic anemia Redness of skin Spinal stenosis, lumbar SVT (supraventricular tachycardia) Type 2 diabetes mellitus Type 2 diabetes mellitus with foot ulcer Ulcer of right foot with fat layer exposed Vitreous hemorrhage of left eye Wears dentures Wears glasses Home Medications acetaminophen 325 mg tablet (Tylenol) 650 mg PO Q6H PRN PRN Pain 1-10 Or Fever #0 tabs 11/13/21 [Rx Last Taken Unknown] ascorbic acid (vitamin C) 500 mg tablet (Vitamin C) 500 mg PO DAILY SUPPLEMENT 01/13/22 [History Last Taken 01/27/22] oxycodone-acetaminophen 5 mg-325 mg tablet 1 tab PO Q6H PRN pain 7 days #28 tabs 01/17/22 [Rx Last Taken 01/28/22] aspirin 325 mg tablet 325 mg PO DAILY BP 01/28/22 [History Last Taken 01/27/22] ferrous sulfate 325 mg (65 mg iron) tablet 325 mg PO DAILY ANEMIA 01/28/22 [History Last Taken 01/27/22] garlic 100 mg tablet 10 mg PO DAILY SUPPLEMENT 01/28/22 [History Last Taken 01/27/22] insulin glargine-yfgn 100 unit/mL (3 mL) subcutaneous pen See Rx Instructions subcut BID BLOOD SUGAR 01/28/22 [History Last Taken 01/28/22] lisinopril 10 mg tablet 10 mg PO DAILY BP 01/28/22 [History Last Taken 01/27/22] metformin 1,000 mg tablet 1,000 mg PO BID BLOOD SUGAR 01/28/22 [History Last Taken 01/27/22] multivitamin 1 tab PO DAILY SUPPLEMENT 01/28/22 [History Last Taken 01/27/22] propranolol 80 mg capsule,24 hr,extended release 80 mg PO DAILY PRN TREMORS 01/28/22 [History Last Taken 01/27/22] Allergy/AdvReac Type Severity Reaction Status Date / Time No Known Allergies Allergy Verified 01/28/22 09:27 Family History Sister Diabetes Hypertension Father Hypertension Mother Cancer Surgical History History of adenoidectomy History of cholecystectomy History of eye surgery History of tonsillectomy Social History Smoking Status: Never smoker alcohol intake: never substance use type: does not use what type of physical activity do you participate in: none ROS Constitutional Constitutional: Reports chills; Denies fever(s), malaise or poor appetite Eyes Eyes: Denies diplopia, eye pain or loss of vision ENT HEENT: Denies dizziness, dysphagia, nasal congestion, nasal discharge or sore throat Cardiovascular Cardiovascular: Denies chest pain, claudication or palpitations Respiratory/Chest Respiratory/Chest: Denies cough, dyspnea or wheezing Gastrointestinal Gastrointestinal: Denies constipation, diarrhea, nausea or vomiting Genitourinary Genitourinary: Denies urinary frequency, urinary hesitancy, urinary incontinence or urinary urgency Musculoskeletal Musculoskeletal: Denies joint pain, joint stiffness or joint swelling Integumentary Integumentary: Denies nail changes, pruritus or rash Neurologic Neurologic: Denies numbness or seizures Psychiatric Psychiatric: Denies behavioral changes or change in appetite Endocrine Endocrinology: Denies cold intolerance, heat intolerance, polydipsia, polyphagia or polyuria Physical Exam Const alert, oriented x3 and no apparent distress General Appearance: cooperative HEENT normocephalic Eyes General Eye: normal appearance of both eyes Neck General: normal visual inspection Lymph Lymphatic: no lymphadenopathy noted and no lymphedema noted Resp normal respiratory effort Cardio regular rate and regular rhythm Extremity normal capillary refill, no joint enlargement, no calf tenderness and no pedal edema Peripheral Pulses: Yes posterior tibial pulses present and dorsalis pedis pulses present Skin no rashes or lesions noted, skin turgor normal and no jaundice Wound Narrative: Ulceration noted to the lateral aspect of the right foot measuring 5 cm x 3-1/2 cm x 1.5 cm. There is wound margin erythema noted with malodor. No purulent drainage no palpable fluctuance/bogginess no visible abscess formation, no lymphangitis. Wound bed demonstrates thick yellow fibrotic tissue with black necrotic tissue. Wound margin demonstrates black and necrotic tissue that is progressed along the lateral side of the foot to the base of the fifth metatarsal. There are 3 sutures intact to the dorsal lateral aspect of the foot. Ulcerative site previously had wound VAC applied following surgery and upon reapplying the VAC on 01/27/2022 VAC underwent subsequent failure leading to significant maceration and progression of likely diabetic foot infection. Neuro moves all extremities Neuro Narrative: There is a lack of protective sensation consistent with peripheral polyneuropathy. Patient does however feel deeper sensations and pain upon squeezing the dorsal aspect of the foot. Pain is consistent with prior examinations presurgical intervention. Lab / Micro Data Result Diagrams: 01/28/22 10:05 01/28/22 10:05 Labs: Laboratory Results - last 24 hr 01/28/22 10:05: WBC 16.6 H, RBC 2.82 L, Hgb 7.8 L, Hct 25.9 L, MCV 91.8, MCH 27.7, MCHC 30.1 L, RDW Std Deviation 47.9 H, RDW Coeff of Bety 14.2, Plt Count 674 H, MPV 10.4, Immature Gran % (Auto) 0.700, Neut % (Auto) 73.7 H, Lymph % (Auto) 14.6 L, [place] % (Auto) 9.0, Eos % (Auto) 1.7, Baso % (Auto) 0.3, Absolute Neuts (auto) 12.2 H, Absolute Lymphs (auto) 2.43, Nucleated RBC % 0, ESR 33 H 01/28/22 10:05: Sodium 137, Potassium 4.2, Chloride 104, Carbon Dioxide 27.0, Anion Gap 6, BUN 26 H, Creatinine 1.38 H, Estim Creat Clear Calc 30.88, Est GFR (MDRD) Af Amer 48 L, Est GFR (MDRD) Non-Af 40 L, BUN/Creatinine Ratio 18.8, Glucose 94, Calcium 9.3, Total Bilirubin 0.30, AST 12 L, ALT 18, Alkaline Phosphatase 66, C-React Prot Ext Range 337.00 H, Total Protein 7.9, Albumin 2.4 L, Globulin 5.5 H, Albumin/Globulin Ratio 0.4 L 01/28/22 10:05: Lactic Acid 1.5 01/28/22 10:05: Retic Count 1.87 H, Immature Retic Fraction 27.40 H, Retic Hgb Equivalent 22.1 L 01/28/22 10:05: Iron 14 L, TIBC 188 L, Iron Saturation 7.4 L, Ferritin 226 01/28/22 16:34: POC Glucose 52 L 01/28/22 16:57: POC Glucose 78 Radiology Impression Foot X-Ray 01/28/22 10:20 IMPRESSION: 1. Soft tissue swelling and subcutaneous air at the previous surgical site. Electronically Signed: Desean Ugalde MD at 10:47 EST ,
[2022-01-28] MEDS: Heparin Injection (Vial) 5,000 UNIT/ML VIAL 5000 UNIT SC (21:32)
[2022-01-28] MEDS: Insulin Glargine-YFGN 100 UNIT/ML Pen 20 UNIT SC (21:33)
[2022-01-28 21:56] LABS: Bedside Glucose 109 mg/dL (74-106)
[2022-01-29] VITALS (11 sets, daily range): BP systolic 90–128; BP diastolic 45–69; PULSE 66–81; RESP 14–18; TEMP 36.6–37.3; O2SAT 95–100
[2022-01-29] MEDS: Acetaminophen 325 MG Tablet 650 MG PO ×3 (00:30→22:28)
[2022-01-29] MEDS: oxyCODONE 5 MG Tablet PO ×3 (00:30→22:28)
[2022-01-29 05:48] LABS: Absolute Lymphocyte Count 1.82 X10^3/uL (0.83-4.51); Absolute Neutrophil Count 12.3 X10^3/uL (2.0-7.7); Basophil# 0.05 X10^3/uL; Basophil% 0.3 % (0-1); Eosinophil# 0.05 X10^3/uL; Eosinophils% 0.3 % (0-5); Hemoglobin 6.9 g/dL (12.0-15.0); Lymphocyte # 1.82 X10^3/ul (0.83-4.51); Lymphocyte % 11.5 % (19-41); Mean Corp Hgb Conc 31.4 g/dL (32-36); Mean Corpuscular Hgb 28.2 pg (27.0-32.0); Mean Corpuscular Volume 89.8 fL (81-99); Mean Platelet Vol. 10.5 fl (6.2-12.0); Monocyte% 9.5 % (0-10); NRBC Flagged by Analyzer 0 % (0-5); Neutrophil # 12.33 X10^3/uL (2.7-7.7); Neutrophil % 77.7 % (47-70); Platelet Count 600 K/mm3 (150-450); RBC Distribution Width CV 14.2 % (11.6-14.6); RBC Distribution Width SD 46.5 fl (35.1-43.9); Red Blood Count 2.45 M/mm3 (4.2-5.4); White Blood Count 15.9 K/mm3 (4.4-11.0)
[2022-01-29] MEDS: Heparin Injection (Vial) 5,000 UNIT/ML VIAL 5000 UNIT SC ×3 (06:16→21:19)
[2022-01-29] MEDS: 0.9% Saline Lock 10 ML Syringe IV ×2 (06:16→15:23)
[2022-01-29 06:25] LABS: ALB/GLOB Ratio 0.4 RATIO (0.9-2.4); AST(SGOT) 20 U/L (15-37); Alanine Aminotransfer ALT/SGPT 17 U/L (13-56); Albumin, Serum 1.9 g/dL (3.2-5.0); Alkaline Phosphatase 61 U/L (45-117); Anion Gap 7 (5-15); BUN 23 mg/dL (7-18); BUN/Creat Ratio 18.9 RATIO (10-20); Calcium,Total 8.6 mg/dL (8.5-10.1); Chloride 106 mmol/L (98-107); Creatinine, Serum 1.22 mg/dL (0.55-1.02); EST Glomerular Filtration Rate 46 mL/min (>60); Est Glom Filt Rate - Afr Amer 55 mL/min (>60); Estimated Creatinine Clearance 34.93 ml/min; Globulin 4.4 g/dL (2.2-4.2); Glucose 112 mg/dL (74-106); Potassium 3.6 mmol/L (3.5-5.1); Protein, Total 6.3 g/dL (6.4-8.2); Sodium Level 138 mmol/L (136-145)
[2022-01-29 06:55] LABS: Bedside Glucose 109 mg/dL (74-106)
[2022-01-29] MEDS: DAKIN'S SOL HALF STRENGTH (=0.25%) 1 APPLIC TOPICAL (07:42)
[2022-01-29] MEDS: Aspirin 81 MG TAB.CHEW PO (08:31)
[2022-01-29] MEDS: Ascorbic Acid 500 MG Tablet PO (08:31)
[2022-01-29] MEDS: Ferrous Sulfate 325 MG Tablet PO (08:31)
[2022-01-29] MEDS: Multivitamins,Therapeutic Tablet 1 TABLET PO (08:31)
--- NOTE | 2022-01-29 08:39 | WOUNDNOTE ---
wound photo: right foot
--- NOTE | 2022-01-29 08:40 | WOUNDNOTE ---
wound photo: right foot
[2022-01-29] MEDS: Propranolol LA 80 MG Capsule PO (08:41)
[2022-01-29] MEDS: Lisinopril 10 MG Tablet PO (08:41)
--- NOTE | 2022-01-29 08:42 | WOUNDNOTE ---
skin photo: right leg/foot
[2022-01-29] MEDS: Insulin Glargine-YFGN 100 UNIT/ML Pen 20 UNIT SC ×2 (08:45→21:20)
--- NOTE | 2022-01-29 11:03 | PN.HOSP_ITS ---
Subjective Subjective Follow-up on postop wound infection: Patient was seen and examined. She had a bedside wound debridement done yeste rday by podiatry. She complains of phantom pain in her right great toe. Denies any fever chills or nausea or vomiting or diarrhea. Objective Data Objective Data Vital Signs: Vital Signs Temp Pulse Resp BP Pulse Ox O2 Del Method 99.1 F 75 14 113/53 L 97 Room Air 01/29/22 08:38 01/29/22 08:38 01/29/22 08:38 01/29/22 08:38 01/29/22 08:38 01/29/22 08:38 Oxygen Delivery Method Room Air Weight: 100.017 kg Body Mass Index (BMI) 37.8 Intake & Output: Intake and Output for Last 24 Hours 01/27/22 01/28/22 01/29/22 23:59 23:59 23:59 Intake Total 630 / 630 50 / 50 Output Total 350 / 350 250 / 250 Balance 280 / 280 -200 / -200 Lab / Micro Data Result Diagrams: 01/29/22 04:50 01/29/22 04:50 Labs: Laboratory Results - last 24 hr 01/28/22 10:05: Retic Count 1.87 H, Immature Retic Fraction 27.40 H, Retic Hgb Equivalent 22.1 L 01/28/22 10:05: Iron 14 L, TIBC 188 L, Iron Saturation 7.4 L, Ferritin 226 01/28/22 16:34: POC Glucose 52 L 01/28/22 16:57: POC Glucose 78 01/28/22 21:32: POC Glucose 109 H 01/29/22 04:50: WBC 15.9 H, RBC 2.45 L, Hgb 6.9 L, Hct 22.0 L, MCV 89.8, MCH 28.2, MCHC 31.4 L, RDW Std Deviation 46.5 H, RDW Coeff of Bety 14.2, Plt Count 600 H, MPV 10.5, Immature Gran % (Auto) 0.700, Neut % (Auto) 77.7 H, Lymph % (Auto) 11.5 L, [place] % (Auto) 9.5, Eos % (Auto) 0.3, Baso % (Auto) 0.3, Absolute Neuts (auto) 12.3 H, Absolute Lymphs (auto) 1.82, Nucleated RBC % 0 01/29/22 04:50: Sodium 138, Potassium 3.6, Chloride 106, Carbon Dioxide 25.0, Anion Gap 7, BUN 23 H, Creatinine 1.22 H, Estim Creat Clear Calc 34.93, Est GFR (MDRD) Af Amer 55 L, Est GFR (MDRD) Non-Af 46 L, BUN/Creatinine Ratio 18.9, Glucose 112 H, Calcium 8.6, Total Bilirubin 0.40, AST 20, ALT 17, Alkaline Phosphatase 61, Total Protein 6.3 L, Albumin 1.9 L, Globulin 4.4 H, Albumin/Globulin Ratio 0.4 L 01/29/22 06:23: POC Glucose 109 H 01/29/22 07:54: Blood Type A NEGATIVE, Antibody Screen NEGATIVE, Crossmatch See Detail Micro: Microbiology 01/28/22 17:04 Wound - Right Foot Wound Culture - Preliminary Gram negative dorys Staphylococcus species Physical Exam Narrative Physical exam: General: Alert, oriented x3, pale, obese HEENT: Atraumatic Oral: Moist Mucosa Neck: Supple Lungs: Diminished to auscultation Cardiovascular: HS I+II, regular, no murmurs Abdomen: Bowel Sounds Present, Soft, Non Tender Extremities: No edema, dressing over the right foot Skin: No rashes, No breakdown Neurological: Grossly intact Psych/Mental Status: Appropriate Assessment & Plan Assessment/Plan (1) Postoperative wound infection: (2) Osteomyelitis of right foot: PLAN: Plan 1.Acute infected right foot ulcer, recent osteomyelitis of the right foot, status post recent I&D and partial fifth ray amputation(01/17/22). Wound cultures growing gram-negative dorys with staph spp WBC count slightly improved to 15.9 from 16.6 Continue on IV vancomycin and Zosyn, Infectious disease and podiatry consulted 2. Anemia, likely secondary to acute blood loss, hemoglobin is 6.9 dropped from 7.8 We will transfuse 2 units of blood with Lasix in between transfusions Trend labs in a.m. 3. Type II DM, complicated by peripheral neuropathy Continue to hold metformin Continue home Lantus at 20 units BID, continue with blood glucose checks with ISS 4. Hypertension,controlled, Hold Lisinopril, continue on propranolol 5. CKD stage IIIa, creatinine remains at her baseline, continue to monitor 6. Obesity, lifestyle modification recommended 7. DVT prophylaxis?heparin subcu Charges/Coding Visit Charges Inpatient E&M: 02795 Subs Hosp L2
[2022-01-29] MEDS: Insulin Lispro 100 UNIT/ML INSULN.PEN SC ×3 (12:07→21:19)
[2022-01-29 12:15] LABS: Bedside Glucose 201 mg/dL (74-106)
--- NOTE | 2022-01-29 12:15 | CASEMGMT ---
Addendum entered by Michelle Tidwell 01/29/22 12:22: Notified Sherrill at [facility] that plan is for pt to dc home tomorrow per rounds and awaiting ID c/s. Original Note: FRANTZ ZIMMERMAN Assessment: Face to Face with pt for initial transition planning/care coordination assessment. FRANTZ ZIMMERMAN introduced self and role at [facility], pt voices understanding and consents to assessment. Pt dozing off and requests dtr Angelina who is present in room to answer assessment questions. Care providers, pharmacy, and demographics verified/updated. Admitting Dx: acute R foot infection PCP:Fausot Specialists:deandra Zuñiga Preferred Pharmacy: [facility] Retail Insurance: MPV Prescription Benefit: no LNOK: yordy Dongr; Brittany Lovelace dtr Living Arrangements: Pt lives with , 3 dtrs and 1 son in a two story house with a ramp to enter. Pt oldest dtr assists with ADL's. Transportation: Pt hires drivers for transportation. DME/HHC/SNF: Pt has crutches, bath stool, cane, BGM with sufficient supplies, w/c, walker and BSC. Pt is active with [facility] SN. Pt and dtr would like this to resume at md and decline a list of other provider options. Pt has no hx of SNF stays. Pt/dtr states no concerns with going home at time of dc. Pt dtr provides wound care on days HH does not visit and will continue to do so. Pt/dtr states no further concerns/needs. CM to follow. Advised pt to ask CM if any further question/concerns/needs arise, voices understanding. Pt Goal: Home with HHC Plan: Home with resumption of HHC, SN.
--- NOTE | 2022-01-29 14:42 | PCM.PROGNOTE ---
Subjective Subjective Patient was seen bedside resting this afternoon with family present. Patient denies any nausea, vomiting, fever, chills. She does admit to some phantom fifth digit pain at the previous amputation site. She is seen in Ebony chair with feet elevated. She denies any overnight events. She has no further complaints today. Objective Data Objective Data Vital Signs: Vital Signs Temp Pulse Resp BP Pulse Ox O2 Del Method 98.9 F 66 15 109/49 L 100 Room Air 01/29/22 13:52 01/29/22 13:52 01/29/22 13:52 01/29/22 13:52 01/29/22 13:52 01/29/22 13:52 Oxygen Delivery Method Room Air Weight: 100.017 kg Body Mass Index (BMI) 37.8 Intake & Output: Intake and Output for Last 24 Hours 01/27/22 01/28/22 01/29/22 23:59 23:59 23:59 Intake Total 630 / 630 365 / 365 Output Total 350 / 350 250 / 250 Balance 280 / 280 115 / 115 Lab / Micro Data Result Diagrams: 01/29/22 04:50 01/29/22 04:50 Labs: Laboratory Results - last 24 hr 01/28/22 10:05: Retic Count 1.87 H, Immature Retic Fraction 27.40 H, Retic Hgb Equivalent 22.1 L 01/28/22 10:05: Iron 14 L, TIBC 188 L, Iron Saturation 7.4 L, Ferritin 226 01/28/22 16:34: POC Glucose 52 L 01/28/22 16:57: POC Glucose 78 01/28/22 21:32: POC Glucose 109 H 01/29/22 04:50: WBC 15.9 H, RBC 2.45 L, Hgb 6.9 L, Hct 22.0 L, MCV 89.8, MCH 28.2, MCHC 31.4 L, RDW Std Deviation 46.5 H, RDW Coeff of Bety 14.2, Plt Count 600 H, MPV 10.5, Immature Gran % (Auto) 0.700, Neut % (Auto) 77.7 H, Lymph % (Auto) 11.5 L, [place] % (Auto) 9.5, Eos % (Auto) 0.3, Baso % (Auto) 0.3, Absolute Neuts (auto) 12.3 H, Absolute Lymphs (auto) 1.82, Nucleated RBC % 0 01/29/22 04:50: Sodium 138, Potassium 3.6, Chloride 106, Carbon Dioxide 25.0, Anion Gap 7, BUN 23 H, Creatinine 1.22 H, Estim Creat Clear Calc 34.93, Est GFR (MDRD) Af Amer 55 L, Est GFR (MDRD) Non-Af 46 L, BUN/Creatinine Ratio 18.9, Glucose 112 H, Calcium 8.6, Total Bilirubin 0.40, AST 20, ALT 17, Alkaline Phosphatase 61, Total Protein 6.3 L, Albumin 1.9 L, Globulin 4.4 H, Albumin/Globulin Ratio 0.4 L 01/29/22 06:23: POC Glucose 109 H 01/29/22 07:54: Blood Type A NEGATIVE, Antibody Screen NEGATIVE, Crossmatch See Detail 01/29/22 11:54: POC Glucose 201 H Micro: Microbiology 01/28/22 17:04 Wound - Right Foot Gram Stain - Final 01/28/22 17:04 Wound - Right Foot Wound Culture - Preliminary Gram negative dorys Staphylococcus species Physical Exam Const alert, oriented x3 and no apparent distress General Appearance: cooperative HEENT normocephalic Eyes General Eye: normal appearance of both eyes Neck General: normal visual inspection Lymph Lymphatic: no lymphadenopathy noted and no lymphedema noted Resp normal respiratory effort Cardio regular rate and regular rhythm Extremity normal capillary refill, no joint enlargement, no calf tenderness and no pedal edema Skin no rashes or lesions noted, skin turgor normal and no jaundice Wound Narrative: Ulceration noted to the lateral aspect of the right foot measuring 5 cm x 3-1/2 cm x 1.5 cm. There is wound margin erythema noted with malodor. No purulent drainage no palpable fluctuance/bogginess no visible abscess formation, no lymphangitis. Wound bed demonstrates thick yellow fibrotic tissue with black necrotic tissue. Wound margin demonstrates black and necrotic tissue that is progressed along the lateral side of the foot to the base of the fifth metatarsal. There are 3 sutures intact to the dorsal lateral aspect of the foot. Ulcerative site previously had wound VAC applied following surgery and upon reapplying the VAC on 01/27/2022 VAC underwent subsequent failure leading to significant maceration and progression of likely diabetic foot infection. Neuro moves all extremities Neuro Narrative: There is a lack of protective sensation consistent with peripheral polyneuropathy. Patient does however feel deeper sensations and pain upon squeezing the dorsal aspect of the foot. Pain is consistent with prior examinations presurgical intervention. Assessment & Plan Assessment/Plan (1) Postoperative wound infection: (2) Type 2 diabetes mellitus with diabetic polyneuropathy: QUALIFIERS: Diabetes mellitus long-term insulin use: without long-term use Qualified Code(s): E11.42 - Type 2 diabetes mellitus with diabetic polyneuropathy (3) Non-pressure chronic ulcer of other part of right foot with fat layer exposed: PLAN: Plan I personally saw and evaluated patient DOS: 01/17/22, POD#12 Wound: Ulceration noted to the lateral aspect of the right foot measuring 5 cm x 3.5 cm x 1.5 cm. There is wound margin erythema noted with malodor. No purulent drainage no palpable fluctuance/bogginess no visible abscess formation, no lymphangitis. Prior to debridement Wound bed demonstrated thick yellow fibrotic tissue with black necrotic tissue. Wound margin demonstrates black and necrotic tissue that is progressed along the lateral side of the foot to the base of the fifth metatarsal. There are 3 sutures intact to the dorsal lateral aspect of the foot. Ulcerative site previously had wound VAC applied following surgery and upon reapplying the VAC on 01/27/2022 VAC underwent subsequent failure leading to significant maceration and progression of likely diabetic foot infection. I discussed stopping wound VAC application at this time until infection resolves. Today there is some improvement in appearance of the wound post debridement. Bedside debridement was performed on 01/28/2022 under local anesthesia to the level of the subcutaneous tissue. Infection: Postoperative wound infection as described as above underwent sharp excisional debridement to the level of subcutaneous tissue. WBC slightly improved from 16.6 down to 15.9 today. CRP 337 ESR elevated at 33. However it is noted patient is 12 days out postop and may account for some rise of the CRP and ESR. I do believe ulcerative site is infected. Patient on IV Vanco/Zosyn recommend continued IV antibiotics. I previously prescribed course of oral antibiotics doxycycline 100 mg twice daily and levofloxacin 500 mg twice daily however patient was unable to fill prescriptions and take the antibiotics. Infectious disease following, plan is for 6 weeks oral ABX as outpatient pending further results. Cultures obtained 01/28/2022 currently demonstrate gram-negative dorys and staff aureus. Surgical cultures 12/9/22: Bone fifth metatarsal demonstrated Proteus mirabilis and staph aureus. Clearance fragment of the fifth metatarsal demonstrated rare Proteus mirabilis. Dressings: Dakin's wet-to-dry dressing with dry sterile dressing and Didier wrap rolled onto the foot. Nursing to change daily. Imaging: Radiographs of the right foot demonstrated soft tissue swelling and subcutaneous air at the previous surgical site. Edema: Patient to elevate right lower extremity at all times rest. Patient is to remain nonweightbearing to the right lower extremity at all times with assistance of wheelchair. She may stand using left foot for transfers/bathroom privileges. Medicine team is currently following for medical management, this is greatly appreciated. Will obtain MRI of right foot for further evaluation. I do expect MRI will demonstrate some postsurgical changes about the fifth metatarsal as she is currently 12 days out of surgery. Podiatry will continue to follow while in house. At this time I do not anticipate surgical intervention following bedside debridement. I will continue to monitor for any changes. Family is aware should any changes occur operative debridement may be required in the future. Please do not hesitate to contact with any questions or concerns Jr. Fern Guerrero.P.M. [facility] [phone] Note: [employer] speech recognition prison guard software was used to create portions of this document. Sound-alike and misspelled words, as well as other prison guard errors may be contained in the documentation.
[2022-01-29] MEDS: Furosemide 40 MG/4 ML Vial IV (15:23)
--- NOTE | 2022-01-29 15:50 | CHAPLAIN ---
Type of Pastoral Visit _x__ Initial Visit ___ Follow-up Visit ___ On-call Visit ___ General Patient Visit ___ Spiritual Assessment ___ Family Conference ___ Bereavement ___ Rapid Response ___ Code Blue ___ Other (describe below) Pastoral Care Referral From _x__ Patient ___ Family ___ Nurse ___ Physician ___ Epic Specialist ___ Licensed Guide ___ Other (describe below) Sacrament/Intervention _x__ Active listening ___ Anointing ___ Nondenominational ___ Bereavement ___ Communion ___ Coreen exploration ___ _x__ Life review _x__ Prayer ___ Reconciliation ___ Sacrament of Sick ___ Supportive presence ___ Wedding ___ Other (describe below) Pastoral Comments patient and daughter are in the room; daughter explains that patient has some memory issues; pt states several times in visit that she just wants to go home; offer of good care so she can get well; patient states welcome of a prayer; daughter expresses that family has other concerns with another daughter in a hospital with cancer
--- NOTE | 2022-01-29 16:37 | PCM.CONS.GEN ---
Assessment & Plan Assessment/Plan (1) Osteomyelitis of right foot: PLAN: Taken to OR 01/17/[address] Zuñiga for partial R 5th ray resection. Toe cx with MSSA, proteus, and strep. Clearance cx with strep. Did not fill outpt abx. Now with worsening of surg site. Wound cx with GNR and staph. On vanc/zosyn. Plan will be for 6 weeks abx at discharge, possible candidate for po depending on further results. Will follow, thank you, d/w social work case manager (2) Postoperative wound infection: (3) Type 2 diabetes mellitus with diabetic polyneuropathy: QUALIFIERS: Diabetes mellitus senior care insulin use: without senior care use Qualified Code(s): E11.42 - Type 2 diabetes mellitus with diabetic polyneuropathy HPI Consult Data Date of Consult: 01/29/22 HPI Narrative Reason for Consultation: foot infection HPI Narrative: LUC HODGES, is a 76 F with DM neuropathy, taken to OR 01/17/[address] Zuñiga for R 5th met osteo to have partial 5th ray amputation. Had been unable to fill recent outpt abx rx. Clearance cx (+) proteus. She came back to ED 12.20 due to 2-3 days worsening odor and drainage from surg site. No fever, no n/v/d. Admitted on vanc/zosyn, bedside I&D done. Feeling a little better. Full ROS performed and neg except as noted above. [facility] Medical History Cardiology follow-up encounter Chronic ulcer of great toe of right foot with necrosis of muscle CKD stage 2 due to type 2 diabetes mellitus Delayed wound healing Diabetes mellitus with diabetic polyneuropathy Diabetic ulcer of left foot with fat layer exposed Dietary restriction History of amputation of toe History of stress test Hyperglycemia due to type 2 diabetes mellitus Incomplete left bundle branch block Lesion of lumbar spine Low iron Non-smoker Normocytic anemia Redness of skin Spinal stenosis, lumbar SVT (supraventricular tachycardia) Type 2 diabetes mellitus Type 2 diabetes mellitus with foot ulcer Ulcer of right foot with fat layer exposed Vitreous hemorrhage of left eye Wears dentures Wears glasses Home Medications acetaminophen 325 mg tablet (Tylenol) 650 mg PO Q6H PRN PRN Pain 1-10 Or Fever #0 tabs 11/13/21 [Rx Last Taken Unknown] ascorbic acid (vitamin C) 500 mg tablet (Vitamin C) 500 mg PO DAILY SUPPLEMENT 01/13/22 [History Last Taken 01/27/22] oxycodone-acetaminophen 5 mg-325 mg tablet 1 tab PO Q6H PRN pain 7 days #28 tabs 01/17/22 [Rx Last Taken 01/28/22] aspirin 325 mg tablet 325 mg PO DAILY BP 01/28/22 [History Last Taken 01/27/22] ferrous sulfate 325 mg (65 mg iron) tablet 325 mg PO DAILY ANEMIA 01/28/22 [History Last Taken 01/27/22] garlic 100 mg tablet 10 mg PO DAILY SUPPLEMENT 01/28/22 [History Last Taken 01/27/22] insulin glargine-yfgn 100 unit/mL (3 mL) subcutaneous pen See Rx Instructions subcut BID BLOOD SUGAR 01/28/22 [History Last Taken 01/28/22] lisinopril 10 mg tablet 10 mg PO DAILY BP 01/28/22 [History Last Taken 01/27/22] metformin 1,000 mg tablet 1,000 mg PO BID BLOOD SUGAR 01/28/22 [History Last Taken 01/27/22] multivitamin 1 tab PO DAILY SUPPLEMENT 01/28/22 [History Last Taken 01/27/22] propranolol 80 mg capsule,24 hr,extended release 80 mg PO DAILY PRN TREMORS 01/28/22 [History Last Taken 01/27/22] Allergy/AdvReac Type Severity Reaction Status Date / Time No Known Allergies Allergy Verified 01/28/22 09:27 Family History Sister Diabetes Hypertension Father Hypertension Mother Cancer Surgical History History of adenoidectomy History of cholecystectomy History of eye surgery History of tonsillectomy Social History Smoking Status: Never smoker alcohol intake: never substance use type: does not use what type of physical activity do you participate in: none Physical Exam Const alert and no apparent distress Constitutional Narrative: Oriented x0 General Appearance: cooperative Orientation / Consciousness: confused HEENT normocephalic and head/scalp atraumatic Eyes PERRL and EOMs intact bilaterally Neck supple and No nodes Resp normal air movement and clear to auscultation bilaterally Cardio regular rate, regular rhythm and no murmurs GI soft to palpation, non-tender and non-distended Extremity General Extremity: edema Skin Skin Narrative: Reviewed photo R foot Neuro CN's II-XII intact bilaterally Lab / Micro Data Attestation: I reviewed the patient's lab results. Result Diagrams: 01/29/22 04:50 01/29/22 04:50 Labs: Laboratory Results - last 24 hr 01/28/22 10:05: Retic Count 1.87 H, Immature Retic Fraction 27.40 H, Retic Hgb Equivalent 22.1 L 01/28/22 10:05: Iron 14 L, TIBC 188 L, Iron Saturation 7.4 L, Ferritin 226 01/28/22 16:34: POC Glucose 52 L 01/28/22 16:57: POC Glucose 78 01/28/22 21:32: POC Glucose 109 H 01/29/22 04:50: WBC 15.9 H, RBC 2.45 L, Hgb 6.9 L, Hct 22.0 L, MCV 89.8, MCH 28.2, MCHC 31.4 L, RDW Std Deviation 46.5 H, RDW Coeff of Bety 14.2, Plt Count 600 H, MPV 10.5, Immature Gran % (Auto) 0.700, Neut % (Auto) 77.7 H, Lymph % (Auto) 11.5 L, [place] % (Auto) 9.5, Eos % (Auto) 0.3, Baso % (Auto) 0.3, Absolute Neuts (auto) 12.3 H, Absolute Lymphs (auto) 1.82, Nucleated RBC % 0 01/29/22 04:50: Sodium 138, Potassium 3.6, Chloride 106, Carbon Dioxide 25.0, Anion Gap 7, BUN 23 H, Creatinine 1.22 H, Estim Creat Clear Calc 34.93, Est GFR (MDRD) Af Amer 55 L, Est GFR (MDRD) Non-Af 46 L, BUN/Creatinine Ratio 18.9, Glucose 112 H, Calcium 8.6, Total Bilirubin 0.40, AST 20, ALT 17, Alkaline Phosphatase 61, Total Protein 6.3 L, Albumin 1.9 L, Globulin 4.4 H, Albumin/Globulin Ratio 0.4 L 01/29/22 06:23: POC Glucose 109 H 01/29/22 07:54: Blood Type A NEGATIVE, Antibody Screen NEGATIVE, Crossmatch See Detail 01/29/22 11:54: POC Glucose 201 H Micro: Microbiology 01/28/22 17:04 Wound - Right Foot Gram Stain - Final 01/28/22 17:04 Wound - Right Foot Wound Culture - Preliminary Gram negative dorys Staphylococcus species
[2022-01-29] MEDS: Juven (unflavored) Packet 1 PACKET PO (17:22)
[2022-01-29 17:35] LABS: Bedside Glucose 214 mg/dL (74-106)
[2022-01-29 21:45] LABS: Bedside Glucose 200 mg/dL (74-106)
[2022-01-30 00:54] VITALS: BP 116/60; PULSE 72; RESP 17; TEMP 36.7; O2SAT 95
[2022-01-30 01:30] VITALS: BP 98/60; PULSE 72; RESP 18; TEMP 36.8; O2SAT 96
[2022-01-30] MEDS: Heparin Injection (Vial) 5,000 UNIT/ML VIAL 5000 UNIT SC ×3 (06:13→21:11)
[2022-01-30] MEDS: oxyCODONE 5 MG Tablet PO ×2 (06:14→14:22)
[2022-01-30 06:44] LABS: Absolute Lymphocyte Count 2.29 X10^3/uL (0.83-4.51); Absolute Neutrophil Count 14.6 X10^3/uL (2.0-7.7); Basophil# 0.07 X10^3/uL; Basophil% 0.4 % (0-1); Eosinophil# 0.15 X10^3/uL; Eosinophils% 0.8 % (0-5); Hematocrit 30.8 % (37-47); Hemoglobin 9.7 g/dL (12.0-15.0); Lymphocyte # 2.29 X10^3/ul (0.83-4.51); Lymphocyte % 12.1 % (19-41); Mean Corp Hgb Conc 31.5 g/dL (32-36); Mean Corpuscular Hgb 28.4 pg (27.0-32.0); Mean Corpuscular Volume 90.3 fL (81-99); Mean Platelet Vol. 10.2 fl (6.2-12.0); Monocyte# 1.74 X10^3/uL; Monocyte% 9.2 % (0-10); NRBC Flagged by Analyzer 0 % (0-5); Neutrophil # 14.59 X10^3/uL (2.7-7.7); Neutrophil % 76.9 % (47-70); POSITIVE DIFFERENTIAL YES; Platelet Count 659 K/mm3 (150-450); RBC Distribution Width CV 14.5 % (11.6-14.6); RBC Distribution Width SD 48.3 fl (35.1-43.9); Red Blood Count 3.41 M/mm3 (4.2-5.4)
[2022-01-30 06:50] LABS: Bedside Glucose 126 mg/dL (74-106)
[2022-01-30 06:53] LABS: Differential Indicated SCAN CRITERIA MET
[2022-01-30 07:18] LABS: Vancomycin, Trough Level 16.6 ug/mL (5.0-15.0)
[2022-01-30 07:19] LABS: Differential Comment SCANNED
[2022-01-30] MEDS: Lisinopril 10 MG Tablet PO (07:29)
[2022-01-30] MEDS: Multivitamins,Therapeutic Tablet 1 TABLET PO (07:29)
[2022-01-30] MEDS: Ascorbic Acid 500 MG Tablet PO (07:29)
[2022-01-30] MEDS: Ferrous Sulfate 325 MG Tablet PO (07:29)
[2022-01-30] MEDS: Propranolol LA 80 MG Capsule PO (07:29)
[2022-01-30] MEDS: Aspirin 81 MG TAB.CHEW PO (07:29)
[2022-01-30] MEDS: Insulin Glargine-YFGN 100 UNIT/ML Pen 20 UNIT SC (07:30)
[2022-01-30] MEDS: Juven (unflavored) Packet 1 PACKET PO ×2 (07:33→17:06)
[2022-01-30 07:34] LABS: ALB/GLOB Ratio 0.3 RATIO (0.9-2.4); AST(SGOT) 24 U/L (15-37); Alanine Aminotransfer ALT/SGPT 25 U/L (13-56); Albumin, Serum 1.7 g/dL (3.2-5.0); Alkaline Phosphatase 65 U/L (45-117); Anion Gap 7 (5-15); BUN 19 mg/dL (7-18); BUN/Creat Ratio 15.4 RATIO (10-20); Calcium,Total 9.2 mg/dL (8.5-10.1); Chloride 104 mmol/L (98-107); Creatinine, Serum 1.23 mg/dL (0.55-1.02); EST Glomerular Filtration Rate 45 mL/min (>60); Est Glom Filt Rate - Afr Amer 55 mL/min (>60); Estimated Creatinine Clearance 34.65 ml/min; Globulin 5.7 g/dL (2.2-4.2); Glucose 134 mg/dL (74-106); Potassium 3.7 mmol/L (3.5-5.1); Protein, Total 7.4 g/dL (6.4-8.2); Sodium Level 136 mmol/L (136-145)
[2022-01-30] MEDS: DAKIN'S SOL HALF STRENGTH (=0.25%) 1 APPLIC TOPICAL (07:38)
--- NOTE | 2022-01-30 08:14 | WOUNDNOTE ---
wound photo: right foot
--- NOTE | 2022-01-30 08:14 | WOUNDNOTE ---
wound photo: right foot
[2022-01-30 08:42] VITALS: BP 117/43; PULSE 72; RESP 16; TEMP 37; O2SAT 96
--- NOTE | 2022-01-30 09:17 | PCM.RX.CS ---
Consult Pharmacy has been consulted to manage selected antiobiotic: Vancomycin Type of Consult: Follow-up Suspected Infection: Osteomyelitis Prior Doses of Antibiotics Received/Current Regimen: 750mg iv q12h. Labs: Sodium 136 mmol/L (136-145) 01/30/22 06:31 Potassium 3.7 mmol/L (3.5-5.1) 01/30/22 06:31 Chloride 104 mmol/L (98-107) 01/30/22 06:31 Carbon Dioxide 25.0 mmol/L (21.0-32.0) 01/30/22 06:31 Anion Gap 7 (5-15) 01/30/22 06:31 BUN 19 mg/dL (7-18) H 01/30/22 06:31 Creatinine 1.23 mg/dL (0.55-1.02) H 01/30/22 06:31 Est GFR (MDRD) Af Amer 55 mL/min (>60) L 01/30/22 06:31 Est GFR (MDRD) Non-Af 45 mL/min (>60) L 01/30/22 06:31 BUN/Creatinine Ratio 15.4 RATIO (10-20) 01/30/22 06:31 Glucose 134 mg/dL (74-106) H 01/30/22 06:31 Vancomycin Trough 16.6 ug/mL (5.0-15.0) H 01/30/22 06:31 Microbiology: Microbiology 01/28/22 17:04 Wound - Right Foot Gram Stain - Final 01/28/22 17:04 Wound - Right Foot Wound Culture - Preliminary Staphylococcus species Proteus mirabilis Weight used for dosin kg Estimated Creatinine Clearance: 46 ml/min Pharmacy Plan for Drug Dosing: Trough today 16.6 and in therapeutic range of 15-20mcg/ml. CrCl ~46 ml/min using adjusted body weight of 72.8kg. Will continue same dose and get another trough before 4th dose. Pharmacy Service will continue to monitor and adjust dosing as required. Follow-Up Labs: Trough Vancomycin - 01.31.22 @1830 before 1900 dose
--- NOTE | 2022-01-30 10:50 | PN.HOSP_ITS ---
Subjective Subjective Follow-up on postop wound infection: Patient was seen and examined.?No acute events overnight. Patient complains of intermittent confusion which is now worsening. Denies any fever or chills. Awaiting MRI of the foot. Objective Data Objective Data Vital Signs: Vital Signs Temp Pulse Resp BP Pulse Ox O2 Del Method 98.6 F 72 16 117/43 L 96 Room Air 01/30/22 08:42 01/30/22 08:42 01/30/22 08:42 01/30/22 08:42 01/30/22 08:42 01/30/22 08:42 Oxygen Delivery Method Room Air Weight: 100.017 kg Body Mass Index (BMI) 37.8 Intake & Output: Intake and Output for Last 24 Hours 01/28/22 01/29/22 01/30/22 23:59 23:59 23:59 Intake Total 630 / 630 1080 / 1280 1315 / 1315 Output Total 350 / 350 1150 / 1850 1900 / 1900 Balance 280 / 280 -70 / -570 -585 / -585 Lab / Micro Data Result Diagrams: 01/30/22 06:31 01/30/22 06:31 Labs: Laboratory Results - last 24 hr 01/29/22 07:54: Blood Type A NEGATIVE, Antibody Screen NEGATIVE, Crossmatch See Detail 01/29/22 11:54: POC Glucose 201 H 01/29/22 17:13: POC Glucose 214 H 01/29/22 21:18: POC Glucose 200 H 01/30/22 06:12: POC Glucose 126 H 01/30/22 06:31: WBC 19.0 H, RBC 3.41 L, Hgb 9.7 L, Hct 30.8 L, MCV 90.3, MCH 28.4, MCHC 31.5 L, RDW Std Deviation 48.3 H, RDW Coeff of Bety 14.5, Plt Count 659 H, MPV 10.2, Immature Gran % (Auto) 0.600, Neut % (Auto) 76.9 H, Lymph % (Au to) 12.1 L, [place] % (Auto) 9.2, Eos % (Auto) 0.8, Baso % (Auto) 0.4, Absolute Neuts (auto) 14.6 H, Absolute Lymphs (auto) 2.29, Nucleated RBC % 0, Differential Comment SCANNED, Diff Path Review May foll 01/30/22 06:31: Sodium 136, Potassium 3.7, Chloride 104, Carbon Dioxide 25.0, Anion Gap 7, BUN 19 H, Creatinine 1.23 H, Estim Creat Clear Calc 34.65, Est GFR (MDRD) Af Amer 55 L, Est GFR (MDRD) Non-Af 45 L, BUN/Creatinine Ratio 15.4, Glu cose 134 H, Calcium 9.2, Total Bilirubin 0.60, AST 24, ALT 25, Alkaline Phosphatase 65, Total Protein 7.4, Albumin 1.7 L, Globulin 5.7 H, Albumin/Globulin Ratio 0.3 L 01/30/22 06:31: Vancomycin Trough 16.6 H Micro: Microbiology 01/28/22 17:04 Wound - Right Foot Gram Stain - Final 01/28/22 17:04 Wound - Right Foot Wound Culture - Preliminary Staphylococcus species Proteus mirabilis Physical Exam Narrative Physical exam: General: Alert, oriented x3, pale, obese HEENT: Atraumatic Oral: Moist Mucosa Neck: Supple Lungs: Diminished to auscultation Cardiovascular: HS I+II, regular, no murmurs Abdomen: Bowel Sounds Present, Soft, Non Tender Extremities: No edema, dressing over the right foot Skin: No rashes, No breakdown Neurological: Grossly intact Psych/Mental Status: Appropriate Assessment & Plan Assessment/Plan (1) Postoperative wound infection: (2) Osteomyelitis of right foot: PLAN: Plan 1. Acute infected right foot ulcer, recent osteomyelitis of the right foot, Status post recent I&D and partial fifth ray amputation(01/17/22). Wound cultures growing Proteus with staph spp WBC count is 19.0. MRI of the foot is pending Continue on IV vancomycin and Zosyn, Infectious disease and podiatry following 2. Anemia, likely secondary to acute blood loss, hemoglobin is 9.7 Status post 2 units of packed RBC yesterday Trend labs in a.m. 3. Type II DM, complicated by peripheral neuropathy Continue to hold metformin Increase home Lantus to 25 units BID, continue with blood glucose checks with ISS 4. Hypertension,controlled, Hold Lisinopril, continue on propranolol 5. CKD stage IIIa, creatinine remains at her baseline, continue to monitor 6. Obesity, lifestyle modification recommended 7. DVT prophylaxis?heparin subcu Charges/Coding Visit Charges Inpatient E&M: 70514 Subs Hosp L2
[2022-01-30] MEDS: Insulin Lispro 100 UNIT/ML INSULN.PEN SC ×3 (10:57→21:12)
--- NOTE | 2022-01-30 11:00 | PN.ID_ITS ---
Physical Exam Narrative Feeling ok, no fever, no n/v/d. Const alert and no apparent distress Resp normal air movement and clear to auscultation bilaterally Cardio regular rate and regular rhythm GI soft to palpation, non-tender and non-distended Extremity General Extremity: edema Skin Skin Narrative: foot wrapped ID ID: Route of nutrition/ use of supplements: [] Nutritional Intake: [] IV Site: [] Galindo Catheter: [] Assessment & Plan Assessment/Plan (1) Osteomyelitis of right foot: PLAN: Taken to OR 01/17/[address] Zuñiga for partial R 5th ray resection. Toe cx with MSSA, proteus, and strep. Clearance cx with strep. Did not fill outpt abx. Now with worsening of surg site. Wound cx with proteus and staph. On vanc/zosyn. Ok for 6 weeks abx at discharge, po doxy and augmentin. Wrote rx. ID followup in 3 weeks. Will follow, wrote rx (2) Postoperative wound infection: (3) Type 2 diabetes mellitus with diabetic polyneuropathy: QUALIFIERS: Diabetes mellitus residential insulin use: without residential use Qualified Code(s): E11.42 - Type 2 diabetes mellitus with diabetic polyneuropathy
[2022-01-30 11:15] LABS: Bedside Glucose 274 mg/dL (74-106)
[2022-01-30 11:16] VITALS: BP 98/67; PULSE 70; RESP 16; TEMP 36.9; O2SAT 94
--- NOTE | 2022-01-30 13:12 | PN_ITS ---
Objective Data Objective Data Vital Signs: Vital Signs Temp Pulse Resp BP Pulse Ox O2 Del Method 98.4 F 70 16 98/67 94 Room Air 01/30/22 11:16 01/30/22 11:16 01/30/22 11:16 01/30/22 11:16 01/30/22 11:16 01/30/22 11:16 Oxygen Delivery Method Room Air Weight: 100.017 kg Body Mass Index (BMI) 37.8 Intake & Output: Intake and Output for Last 24 Hours 01/28/22 01/29/22 01/30/22 23:59 23:59 23:59 Intake Total 630 / 630 1080 / 1280 1565 / 1565 Output Total 350 / 350 1150 / 1850 1999 Balance 280 / 280 -70 / -570 -435 / -435 Lab / Micro Data Result Diagrams: 01/30/22 06:31 01/30/22 06:31 Labs: Laboratory Results - last 24 hr 01/29/22 07:54: Blood Type A NEGATIVE, Antibody Screen NEGATIVE, Crossmatch See Detail 01/29/22 17:13: POC Glucose 214 H 01/29/22 21:18: POC Glucose 200 H 01/30/22 06:12: POC Glucose 126 H 01/30/22 06:31: WBC 19.0 H, RBC 3.41 L, Hgb 9.7 L, Hct 30.8 L, MCV 90.3, MCH 28.4, MCHC 31.5 L, RDW Std Deviation 48.3 H, RDW Coeff of Bety 14.5, Plt Count 659 H, MPV 10.2, Immature Gran % (Auto) 0.600, Neut % (Auto) 76.9 H, Lymph % ( Auto) 12.1 L, Sutton % (Auto) 9.2, Eos % (Auto) 0.8, Baso % (Auto) 0.4, Absolute Neuts (auto) 14.6 H, Absolute Lymphs (auto) 2.29, Nucleated RBC % 0, Differential Comment SCANNED, Diff Path Review June01/30/22 06:31: Sodium 136, Potassium 3.7, Chloride 104, Carbon Dioxide 25.0, Anion Gap 7, BUN 19 H, Creatinine 1.23 H, Estim Creat Clear Calc 34.65, Est GFR (MDRD) Af Amer 55 L, Est GFR (MDRD) Non-Af 45 L, BUN/Creatinine Ratio 15.4, G lucose 134 H, Calcium 9.2, Total Bilirubin 0.60, AST 24, ALT 25, Alkaline Phosphatase 65, Total Protein 7.4, Albumin 1.7 L, Globulin 5.7 H, Albumin/Globulin Ratio 0.3 L 01/30/22 06:31: Vancomycin Trough 16.6 H 01/30/22 10:53: POC Glucose 274 H Micro: Microbiology 01/28/22 17:04 Wound - Right Foot Gram Stain - Final 01/28/22 17:04 Wound - Right Foot Wound Culture - Preliminary Staphylococcus species Proteus mirabilis Physical Exam Const alert, oriented x3 and no apparent distress General Appearance: cooperative HEENT normocephalic Eyes General Eye: normal appearance of both eyes Neck General: normal visual inspection Lymph Lymphatic: no lymphadenopathy noted and no lymphedema noted Resp normal respiratory effort Cardio regular rate and regular rhythm Extremity normal capillary refill, no joint enlargement, no calf tenderness and no pedal edema Skin no rashes or lesions noted, skin turgor normal and no jaundice Wound Narrative: Ulceration noted to the lateral aspect of the right foot measuring 5 cm x 3-1/2 cm x 1.5 cm. There is wound margin erythema noted with malodor. No purulent dr aijosége no palpable fluctuance/bogginess no visible abscess formation, no lymphangitis. Wound bed demonstrates thick yellow fibrotic tissue with black necrotic tissue. Wound margin demonstrates black and necrotic tissue that is progressed along the lateral side of the foot to the base of the fifth metatarsal. There are 3 sutures intact to the dorsal lateral aspect of the foot. Ulcerative site previously had wound VAC applied following surgery and upon reapplying the VAC on 01/27/2022 VAC underwent subsequent failure leading to significant maceration and progression of likely diabetic foot infection. Neuro moves all extremities Neuro Narrative: There is a lack of protective sensation consistent with peripheral poly neuropathy. Patient does however feel deeper sensations and pain upon squeezing the dorsal aspect of the foot. Pain is consistent with prior examinations presurgical intervention. 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 There is wound margin erythema noted with malodor. No purulent drainage no palpable fluctuance/bogginess no visible abscess formation, no lymphangitis. Prior to debridement Wound bed demonstrated thick yellow fibrotic tissue with black necrotic tissue. Wound margin demonstrates black and necrotic tissue that is progressed along the lateral side of the foot to the base of the fifth metatarsal. There are 3 sutures intact to the dorsal lateral aspect of the foot. Ulcerative site previously had wound VAC applied following surgery and upon reapplying the VAC on 01/27/2022 VAC underwent subsequent failure leading to significant maceration and progression of likely diabetic foot infection. I discussed stopping wound VAC application at this time until infection resolves. Today there is some improvement in appearance of the wound post debridement. Bedside debridement was performed on 01/28/2022 under local anesthesia to the level of the subcutaneous tissue. Infection: Postoperative wound infection as described as above underwent sharp excisional debridement to the level of subcutaneous tissue. WBC slightly improved from 16.6 down to 15.9 today. CRP 337 ESR elevated at 33. However it is noted patient is 12 days out postop and may account for some rise of the CRP and ESR. I do believe ulcerative site is infected. Patient on IV Vanco/Zosyn recommend continued IV antibiotics. I previously prescribed course of oral antibiotics doxycycline 100 mg twice daily and levofloxacin 500 mg twice daily however patient was unable to fill prescriptions and take the antibiotics. Infectious disease following, plan is for 6 weeks oral ABX as outpatient pending further results. Cultures obtained 01/28/2022 currently demonstrate gram- negative dorys and staff aureus. Surgical cultures 01/17/22: Bone fifth metatarsal demonstrated Proteus mirabilis and staph aureus. Clearance fragment of the fifth metatarsal demonstrated rare Proteus mirabilis. Dressings: Dakin's wet-to-dry dressing with dry sterile dressing and Didier wrap rolled onto the foot. Nursing to change daily. Imaging: Radiographs of the right foot demonstrated soft tissue swelling and subcutaneous air at the previous surgical site. Edema: Patient to elevate right lower extremity at all times rest. Patient is to remain nonweightbearing to the right lower extremity at all times with assistance of wheelchair. She may stand using left foot for transfers/bathroom privileges. Medicine team is currently following for medical management, this is greatly appreciated. Will obtain MRI of right foot for further evaluation. I do expect MRI will demonstrate some postsurgical changes about the fifth metatarsal as she is currently 12 days out of surgery. Podiatry will continue to follow while in house. At this time I do not anticipate surgical intervention following bedside debridement. I will continue to monitor for any changes. Family is aware should any changes occur operative debridement may be required in the future. Please do not hesitate to contact with any questions or concerns Ameya Barclay D.P.M[facility] [phone] Note: [employer] speech recognition salesperson shoes software was used to create portions of this document. Sound-alike and misspelled words, as well as other salesperson shoes errors may be contained in the documentation. Patient awaiting MRI. Pending any deep infection or urgent infection clearance demonstrated by MRI we will plan to delay surgical debridement. Recommend vascular consultation for additional work-up. Patient may require additional amputation and debridement based on worsening of her wound status.
[2022-01-30] MEDS: Acetaminophen 325 MG Tablet 650 MG PO ×2 (14:21→21:10)
[2022-01-30 14:35] VITALS: BP 113/44; PULSE 76; RESP 16; TEMP 37.7; O2SAT 95
--- NOTE | 2022-01-30 15:01 | CASEMGMT ---
Social Work Pt has informed admitting nurse that she does have a living will and is aware document is not on file and acknowledged she can bring a copy in. Pt denies HCPOA at this time. LUCERO Aceves
--- NOTE | 2022-01-30 15:38 | MRI_ITS ---
STUDY: MR Foot W/O Contrast 01/30/2022 4:52 PM RIGHT REASON FOR EXAM: Female, 76 years old. Post-surgical wound infection Right foot ULCER LATERAL RIGHT FOOT. 01/17/22 PARTIAL AMPUTATION 5TH METATARSAL. TECHNIQUE: Standardized fat and water weighted pulse sequences were obtained in all 3 orthogonal planes. COMPARISON: MR RT FOOT 11/11/21 FINDINGS: Normal talus, calcaneus, and tarsal bones. Normal visualized subtalar, talonavicular, calcaneocuboid, tarsal and tarsometatarsal articulations. amputation of the head of the 5th metatarsi. Soft tissue defect over the amputation site. Normal metatarsophalangeal joint of the great toe. Normal tibial and fibular sesamoid bones. Normal interphalangeal joint of the great toe. Normal phalanges of the great toe. Normal second through 3rd metatarsophalangeal joints. There is abnormal increased STIR signal around the base of the 4th proximal digit. There is low T1 signal around the digit. This is concerning for osteomyelitis. The soft tissue structures are unremarkable. MRI/Lower Ext/No Jt/w/o IMPRESSION: amputation of the head of the 5th metatarsi. Soft tissue defect over the amputation site. This is likely post surgical. Possible osteomyelitis of the base of the 4th proximal phalanx. Electronically Signed: Tate Perez MD at 17:17 EST ,
[2022-01-30 17:30] LABS: Bedside Glucose 369 mg/dL (74-106)
[2022-01-30] MEDS: 0.9% Saline Lock 10 ML Syringe IV ×2 (18:42→21:15)
[2022-01-30 21:01] VITALS: BP 125/46; PULSE 70; RESP 18; TEMP 36.8; O2SAT 96
[2022-01-30] MEDS: Insulin Glargine-YFGN 100 UNIT/ML Pen 25 UNIT SC (21:13)
[2022-01-31 01:00] LABS: Bedside Glucose 371 mg/dL (74-106)
[2022-01-31 02:41] VITALS: BP 119/66; PULSE 65; RESP 18; TEMP 37; O2SAT 96
[2022-01-31 05:25] LABS: Absolute Lymphocyte Count 2.03 X10^3/uL (0.83-4.51); Absolute Neutrophil Count 13.7 X10^3/uL (2.0-7.7); Basophil# 0.04 X10^3/uL; Basophil% 0.2 % (0-1); Eosinophil# 0.17 X10^3/uL; Hematocrit 28.3 % (37-47); Hemoglobin 9.3 g/dL (12.0-15.0); Lymphocyte # 2.03 X10^3/ul (0.83-4.51); Lymphocyte % 11.7 % (19-41); Mean Corp Hgb Conc 32.9 g/dL (32-36); Mean Corpuscular Hgb 29.4 pg (27.0-32.0); Mean Corpuscular Volume 89.6 fL (81-99); Mean Platelet Vol. 10.1 fl (6.2-12.0); Monocyte# 1.34 X10^3/uL; Monocyte% 7.7 % (0-10); NRBC Flagged by Analyzer 0 % (0-5); Neutrophil # 13.66 X10^3/uL (2.7-7.7); Neutrophil % 78.6 % (47-70); Platelet Count 641 K/mm3 (150-450); RBC Distribution Width CV 14.6 % (11.6-14.6); RBC Distribution Width SD 47.8 fl (35.1-43.9); Red Blood Count 3.16 M/mm3 (4.2-5.4); White Blood Count 17.4 K/mm3 (4.4-11.0)
[2022-01-31 05:52] LABS: ALB/GLOB Ratio 0.4 RATIO (0.9-2.4); AST(SGOT) 18 U/L (15-37); Alanine Aminotransfer ALT/SGPT 22 U/L (13-56); Albumin, Serum 1.8 g/dL (3.2-5.0); Alkaline Phosphatase 68 U/L (45-117); Anion Gap 6 (5-15); BUN 26 mg/dL (7-18); BUN/Creat Ratio 21.3 RATIO (10-20); Calcium,Total 8.9 mg/dL (8.5-10.1); Chloride 104 mmol/L (98-107); Creatinine, Serum 1.22 mg/dL (0.55-1.02); EST Glomerular Filtration Rate 46 mL/min (>60); Est Glom Filt Rate - Afr Amer 55 mL/min (>60); Estimated Creatinine Clearance 34.93 ml/min; Globulin 5.1 g/dL (2.2-4.2); Glucose 258 mg/dL (74-106); Potassium 3.8 mmol/L (3.5-5.1); Protein, Total 6.9 g/dL (6.4-8.2); Sodium Level 136 mmol/L (136-145)
[2022-01-31] MEDS: Heparin Injection (Vial) 5,000 UNIT/ML VIAL 5000 UNIT SC (06:26)
[2022-01-31] MEDS: 0.9% Saline Lock 10 ML Syringe IV (06:28)
[2022-01-31] MEDS: Insulin Lispro 100 UNIT/ML INSULN.PEN SC ×2 (06:34→11:34)
[2022-01-31 07:35] LABS: Bedside Glucose 213 mg/dL (74-106)
[2022-01-31 07:53] VITALS: BP 130/57; PULSE 74; RESP 18; TEMP 37.8; O2SAT 95
[2022-01-31] MEDS: Acetaminophen 325 MG Tablet 650 MG PO (08:03)
[2022-01-31] MEDS: Multivitamins,Therapeutic Tablet 1 TABLET PO (08:04)
[2022-01-31] MEDS: Ferrous Sulfate 325 MG Tablet PO (08:04)
[2022-01-31] MEDS: Juven (unflavored) Packet 1 PACKET PO (08:04)
[2022-01-31] MEDS: Aspirin 81 MG TAB.CHEW PO (08:04)
[2022-01-31 09:49] LABS: Pathologist Review Reviewed
--- NOTE | 2022-01-31 09:55 | EX.PCM.CON.S ---
Assessment & Plan Assessment/Plan (1) Non-pressure chronic ulcer of other part of right foot with fat layer exposed: PLAN: We were consulted to evaluate vascular status so as to optimize blood flow and improve healing ability if possible in anticipation of future podiatric interventions on an outpatient basis. Patient had PVRs on 11/11/2021 which revealed significant arterial disease of the right lower extremity. CTA not likely to provide additional benefit and would recommend proceeding to angiogram. In absence of further inpatient surgical intervention from podiatry, this can be pursued outpatient. Will plan to perform an angiogram as an outpatient. We will plan to see patient in the office prior to this procedure. Our office will call to schedule with patient after discharge. Discharge planning as per primary team. Should anything change or any concern that more immediate intervention is required we will reevaluate. HPI Consult Data Date of Consult: 01/31/22 HPI Narrative Reason for Consultation: Nonhealing R foot wound HPI Narrative: LUC HODGES, is a 76 F who had surgical debridement of right foot wound with partial right fifth ray amputation performed by Dr. Zuñiga on 01/17/2022 and she was discharged with wound VAC. On 01-28-2022 patient presented to the emergency department with complaint of foul-smelling drainage from the wound/amputation site for 2 days. She reportedly had difficulty with the wound VAC. She had been prescribed antibiotics outpatient but had not yet started these at her time of presentation to ED. She was admitted with postop infection and osteomyelitis of right foot. Infectious disease was consulted and patient started on IV Zosyn and vancomycin and planning for 6 weeks of oral antibiotics as outpatient. Podiatry performed bedside debridement on 01/28/2022 and continues to manage patient's wound care. Per podiatry, not anticipating any surgical intervention while inpatient. We were consulted to further evaluate vascular status so as to optimize blood flow and improve healing ability if possible in anticipation of future podiatric interventions on an outpatient basis. Significant past medical history includes type II Diabetes with diabetic polyneuropathy. She does not smoke. She is not on any blood thinners besides aspirin. He has had endovascular interventions in the past. Patient reports feeling okay today. No complaints. Denies constitutional symptoms, shortness of breath, chest pain, pain in lower extremities. [facility] Medical History Cardiology follow-up encounter Chronic ulcer of great toe of right foot with necrosis of muscle CKD stage 2 due to type 2 diabetes mellitus Delayed wound healing Diabetes mellitus with diabetic polyneuropathy Diabetic ulcer of left foot with fat layer exposed Dietary restriction History of amputation of toe History of stress test Hyperglycemia due to type 2 diabetes mellitus Incomplete left bundle branch block Lesion of lumbar spine Low iron Non-smoker Normocytic anemia Redness of skin Spinal stenosis, lumbar SVT (supraventricular tachycardia) Type 2 diabetes mellitus Type 2 diabetes mellitus with foot ulcer Ulcer of right foot with fat layer exposed Vitreous hemorrhage of left eye Wears dentures Wears glasses Home Medications acetaminophen 325 mg tablet (Tylenol) 650 mg PO Q6H PRN PRN Pain 1-10 Or Fever #0 tabs 11/13/21 [Rx Last Taken Unknown] ascorbic acid (vitamin C) 500 mg tablet (Vitamin C) 500 mg PO DAILY SUPPLEMENT 01/13/22 [History Last Taken 01/27/22] oxycodone-acetaminophen 5 mg-325 mg tablet 1 tab PO Q6H PRN pain 7 days #28 tabs 01/17/22 [Rx Last Taken 01/28/22] aspirin 325 mg tablet 325 mg PO DAILY BP 01/28/22 [History Last Taken 01/27/22] ferrous sulfate 325 mg (65 mg iron) tablet 325 mg PO DAILY ANEMIA 01/28/22 [History Last Taken 01/27/22] garlic 100 mg tablet 10 mg PO DAILY SUPPLEMENT 01/28/22 [History Last Taken 01/27/22] insulin glargine-yfgn 100 unit/mL (3 mL) subcutaneous pen See Rx Instructions subcut BID BLOOD SUGAR 01/28/22 [History Last Taken 01/28/22] lisinopril 10 mg tablet 10 mg PO DAILY BP 01/28/22 [History Last Taken 01/27/22] metformin 1,000 mg tablet 1,000 mg PO BID BLOOD SUGAR 01/28/22 [History Last Taken 01/27/22] multivitamin 1 tab PO DAILY SUPPLEMENT 01/28/22 [History Last Taken 01/27/22] propranolol 80 mg capsule,24 hr,extended release 80 mg PO DAILY PRN TREMORS 01/28/22 [History Last Taken 01/27/22] amoxicillin 875 mg-potassium clavulanate 125 mg tablet 1 tab PO BID #80 tabs 01/30/22 [Rx Last Taken Unknown] doxycycline hyclate 100 mg capsule 100 mg PO BID #80 caps 01/30/22 [Rx Last Taken Unknown] Allergy/AdvReac Type Severity Reaction Status Date / Time No Known Allergies Allergy Verified 01/28/22 09:27 Family History Sister Diabetes Hypertension Father Hypertension Mother Cancer Surgical History History of adenoidectomy History of cholecystectomy History of eye surgery History of tonsillectomy Social History Smoking Status: Never smoker alcohol intake: never substance use type: does not use what type of physical activity do you participate in: none ROS Constitutional Constitutional: Denies chills, fever(s), malaise or poor appetite Eyes Eyes: Denies diplopia, eye pain or loss of vision ENT HEENT: Denies dizziness, dysphagia, nasal congestion, nasal discharge or sore throat Cardiovascular Cardiovascular: Denies chest pain, claudication or palpitations Respiratory/Chest Respiratory/Chest: Denies cough, dyspnea or wheezing Gastrointestinal Gastrointestinal: Denies constipation, diarrhea, nausea or vomiting Genitourinary Genitourinary: Denies urinary frequency, urinary hesitancy, urinary incontinence or urinary urgency Musculoskeletal Musculoskeletal: Denies joint pain, joint stiffness or joint swelling Integumentary Integumentary: Denies nail changes, pruritus or rash Neurologic Neurologic: Denies numbness or seizures Psychiatric Psychiatric: Denies behavioral changes or change in appetite Endocrine Endocrinology: Denies cold intolerance, heat intolerance, polydipsia, polyphagia or polyuria Physical Exam Const alert, oriented x3 and no apparent distress General Appearance: cooperative, comfortable and well developed HEENT normocephalic, head/scalp atraumatic, hearing grossly normal bilaterally, external ears normal and external nose normal Eyes EOMs intact bilaterally General Eye: normal appearance of both eyes Neck General: normal visual inspection and trachea midline Lymph Lymphatic: no lymphadenopathy noted and no lymphedema noted Resp normal respiratory effort and clear to auscultation bilaterally Effort and Inspection: able to speak in complete sentences; Negative for labored, stridor or audible wheezes Cardio regular rate and regular rhythm Peripheral Pulses: brachial pulses present and radial pulses present Extremity normal capillary refill, no calf tenderness and no pedal edema Skin no rashes or lesions noted Wound Narrative: Dressing c/d/i to right foot, not removed for examination. Neuro oriented x3, CN's II-XII intact bilaterally, moves all extremities and no focal motor deficits Sensorium / Orientation: awake and alert Psych mental status grossly normal, cooperative, affect normal, speech normal and activity/motor behavior normal Lab / Micro Data Result Diagrams: 01/31/22 05:06 01/31/22 05:06 Labs: Laboratory Results - last 24 hr 01/30/22 06:31: Diff Path Review Reviewed 01/30/22 10:53: POC Glucose 274 H 01/30/22 17:04: POC Glucose 369 H 01/30/22 21:09: POC Glucose 371 H 01/31/22 05:06: WBC 17.4 H, RBC 3.16 L, Hgb 9.3 L, Hct 28.3 L, MCV 89.6, MCH 29.4, MCHC 32.9, RDW Std Deviation 47.8 H, RDW Coeff of Bety 14.6, Plt Count 641 H, MPV 10.1, Immature Gran % (Auto) 0.800, Neut % (Auto) 78.6 H, Lymph % (Auto) 11.7 L, Zapata % (Auto) 7.7, Eos % (Auto) 1.0, Baso % (Auto) 0.2, Absolute Neuts (auto) 13.7 H, Absolute Lymphs (auto) 2.03, Nucleated RBC % 0 01/31/22 05:06: Sodium 136, Potassium 3.8, Chloride 104, Carbon Dioxide 26.0, Anion Gap 6, BUN 26 H, Creatinine 1.22 H, Estim Creat Clear Calc 34.93, Est GFR (MDRD) Af Amer 55 L, Est GFR (MDRD) Non-Af 46 L, BUN/Creatinine Ratio 21.3 H, Glucose 258 H, Calcium 8.9, Total Bilirubin 0.30, AST 18, ALT 22, Alkaline Phosphatase 68, Total Protein 6.9, Albumin 1.8 L, Globulin 5.1 H, Albumin/Globulin Ratio 0.4 L 01/31/22 06:33: POC Glucose 213 H Micro: Microbiology 01/28/22 17:04 Wound - Right Foot Gram Stain - Final 01/28/22 17:04 Wound - Right Foot Wound Culture - Preliminary Staphylococcus aureus Proteus mirabilis Radiology Impression Lower Extremity MRI 01/30/22 15:38 IMPRESSION: amputation of the head of the 5th metatarsi. Soft tissue defect over the amputation site. This is likely post surgical. Possible osteomyelitis of the base of the 4th proximal phalanx. Electronically Signed: Tate Perez MD at 17:17 EST Reading Location ID and State: [facility] / [place] , Service support , Charges/Coding Visit Charges Inpatient E&M: 72299 Init Hosp L1
[2022-01-31] MEDS: Propranolol LA 80 MG Capsule PO (11:04)
[2022-01-31] MEDS: Lisinopril 10 MG Tablet PO (11:04)
[2022-01-31] MEDS: Ascorbic Acid 500 MG Tablet PO (11:04)
[2022-01-31] MEDS: Insulin Glargine-YFGN 100 UNIT/ML Pen 25 UNIT SC (11:05)
[2022-01-31] MEDS: DAKIN'S SOL HALF STRENGTH (=0.25%) 1 APPLIC TOPICAL (11:05)
--- NOTE | 2022-01-31 11:10 | PN_ITS ---
Subjective Subjective No changes overnight, denies constitutionals. Some pain limited to her foot. Objective Data Objective Data Vital Signs: Vital Signs Temp Pulse Resp BP Pulse Ox O2 Del Method 100.0 F H 74 18 130/57 H 95 Room Air 01/31/22 07:53 01/31/22 07:53 01/31/22 07:53 01/31/22 07:53 01/31/22 07:53 01/31/22 07:57 Oxygen Delivery Method Room Air Weight: 101.4 kg Body Mass Index (BMI) 37.8 Intake & Output: Intake and Output for Last 24 Hours 01/29/22 01/30/22 01/31/22 23:59 23:59 23:59 Intake Total 1080 / 1280 2230.00 / 2230.00 365 / 365 Output Total 1150 / 1850 2400 / 2550 250 / 250 Balance -70 / -570 -170.00 / -320.00 115 / 115 Lab / Micro Data Result Diagrams: 01/31/22 05:06 01/31/22 05:06 Labs: Laboratory Results - last 24 hr 01/30/22 06:31: Diff Path Review Reviewed 01/30/22 10:53: POC Glucose 274 H 01/30/22 17:04: POC Glucose 369 H 01/30/22 21:09: POC Glucose 371 H 01/31/22 05:06: WBC 17.4 H, RBC 3.16 L, Hgb 9.3 L, Hct 28.3 L, MCV 89.6, MCH 29.4, MCHC 32.9, RDW Std Deviation 47.8 H, RDW Coeff of Bety 14.6, Plt Count 641 H, MPV 10.1, Immature Gran % (Auto) 0.800, Neut % (Auto) 78.6 H, Lymph % (Auto) 11.7 L, Crane % (Auto) 7.7, Eos % (Auto) 1.0, Baso % (Auto) 0.2, Absolute Neuts (auto) 13.7 H, Absolute Lymphs (auto) 2.03, Nucleated RBC % 0 01/31/22 05:06: Sodium 136, Potassium 3.8, Chloride 104, Carbon Dioxide 26.0, Anion Gap 6, BUN 26 H, Creatinine 1.22 H, Estim Creat Clear Calc 34.93, Est GFR (MDRD) Af Amer 55 L, Est GFR (MDRD) Non-Af 46 L, BUN/Creatinine Ratio 21.3 H, Glucose 258 H, Calcium 8.9, Total Bilirubin 0.30, AST 18, ALT 22, Alkaline Phosphatase 68, Total Protein 6.9, Albumin 1.8 L, Globulin 5.1 H, Al bumin/Globulin Ratio 0.4 L 01/31/22 06:33: POC Glucose 213 H Micro: Microbiology 01/28/22 17:04 Wound - Right Foot Gram Stain - Final 01/28/22 17:04 Wound - Right Foot Wound Culture - Preliminary Staphylococcus aureus Proteus mirabilis Radiography Diagnostic Testing: Radiology Impression Lower Extremity MRI 01/30/22 15:38 IMPRESSION: amputation of the head of the 5th metatarsi. Soft tissue defect over the amputation site. This is likely post surgical. Possible osteomyelitis of the base of the 4th proximal phalanx. Electronically Signed: Tate Perez MD at 17:17 EST Reading Location ID and State: [facility] / [place] , Service support , Physical Exam Const alert, oriented x3 and no apparent distress General Appearance: cooperative HEENT normocephalic Eyes General Eye: normal appearance of both eyes Neck General: normal visual inspection Lymph Lymphatic: no lymphadenopathy noted and no lymphedema noted Resp normal respiratory effort Cardio regular rate and regular rhythm Extremity normal capillary refill, no joint enlargement, no calf tenderness and no pedal edema Skin no rashes or lesions noted, skin turgor normal and no jaundice Wound Narrative: Ulceration noted to the lateral aspect of the right foot measuring 5 cm x 3-1/2 cm x 1.5 cm. There is wound margin erythema noted with malodor. No purulent drainage no palpable fluctuance/bogginess no visible abscess formation, no lymphangitis. Wound bed demonstrates thick yellow fibrotic tissue with black necrotic tissue. Wound margin demonstrates black and necrotic tissue that is progressed along the lateral side of the foot to the base of the fifth metatarsal. There are 3 sutures intact to the dorsal lateral aspect of the foot. Ulcerative site previously had wound VAC applied following surgery and upon reapplying the VAC on 01/27/2022 VAC underwent subsequent failure leading to significant maceration and progression of likely diabetic foot infection. Neuro moves all extremities Neuro Narrative: There is a lack of protective sensation consistent with peripheral polyneuropathy. Patient does however feel deeper sensations and pain upon squeezing the dorsal aspect of the foot. Pain is consistent with prior examinations presurgical intervention. Assessment & Plan Assessment/Plan (1) Postoperative wound infection: (2) Type 2 diabetes mellitus with diabetic polyneuropathy: QUALIFIERS: Diabetes mellitus shelter insulin use: without intermodal owner operator truck driver use Qualified Code(s): E11.42 - Type 2 diabetes mellitus with diabetic polyneuropathy (3) Non-pressure chronic ulcer of other part of right foot with fat layer exposed: PLAN: Plan Exam performed Right lateral foot wound stable at this time current plan is to suppress infection with antibiotics until outpatient revascularization, then will plan for definitive amputation. Vascular/ID on board - patient to d/c on PO augmentin/doxycycline dressing changed today - redressed with saline wet to dry, DSD w/o compression patient should remain non-weightbearing to right foot Patient should get [facility] dressing changes 3 times a week - instructions in discharge Will continue to observe patient closely - if her wound continues to worsen or if she becomes systemically ill, then we will proceed with surgical debridem ent/amputation to provide infection clearance; otherwise, will await revascularization. Patient to follow up in Dr. Zuñiga [facility].
--- NOTE | 2022-01-31 11:46 | CASEMGMT ---
Notified Soni at [facility] that pt will dc today. Pt with family in room and ready for dc. Pt family to perform dressing changes, no supplies needed. Pt denies further needs. Pt very alert and sitting up in bed.
[2022-01-31 11:55] LABS: Bedside Glucose 229 mg/dL (74-106)
--- NOTE | 2022-01-31 12:27 | DCINST_ITS ---
Discharge Instructions Diet Discharge Diet: Low fat / Low cholesterol, 1800 Calorie Control Diet and 2000 mg Sodium Diet Activity Discharge Activity: Return to Normal Activity Follow Up Care Test Results: Test results from this visit will be discussed in further detail at your follow- up appointment, if applicable. Discharge Plan Admission Admit Date/Time: 01/28/22 11:57 Primary Reason for Your Visit: Acute right foot osteomyelitis Attending Provider: Linh Mahajan Primary Care Provider: Keshav Lambert Consulting Providers: Elie Zuñiga ; Koby Hills ; Terry Lopez Instructions Additional Instructions / Restrictions: Patient will require home health care dressing changes consisting of dakin's soaked gauze, 4x4s, kerlix. This dressing should be performed 3 times a week per home health care dressing changes Patient will follow up with dr. zuñiga in 1 week on at the wound care center patient should remain non-weightbearing to right foot to avoid additional tissue injury, patient can occassionaly bear weight to heel on right in surgical shoe assisted by walker for transfer to bathroom Discharge Orders/Prescriptions Prescriptions: New doxycycline hyclate 100 mg capsule 100 mg PO BID Qty: 80 0RF amoxicillin-pot clavulanate 875-125 mg tablet 1 tab PO BID Qty: 80 0RF insulin glargine-yfgn 100 unit/mL (3 mL) Insulin Pen 35 unit subcut BID 30 Days Qty: 21 0RF Continued acetaminophen [Tylenol] 325 mg Tablet 650 mg PO Q6H PRN PRN (Reason: Pain 1-10 Or Fever) Qty: 0 0RF ascorbic acid (vitamin C) [Vitamin C] 500 mg Tablet 500 mg PO DAILY oxycodone-acetaminophen 5-325 mg tablet 1 tab PO Q6H PRN (Reason: pain) 7 Days Qty: 28 0RF Rx Instructions: Take 1 tablet every 6 hours as needed postoperative pain aspirin 325 mg Tablet 325 mg PO DAILY garlic 100 mg Tablet 10 mg PO DAILY multivitamin Tablet 1 tab PO DAILY ferrous sulfate 325 mg (65 mg iron) tablet 325 mg PO DAILY metformin 1,000 mg tablet 1,000 mg PO BID lisinopril 10 mg tablet 10 mg PO DAILY propranolol 80 mg capsule,extended release 24 hr 80 mg PO DAILY PRN (Reason: TREMORS) Rx Instructions: Daily in the A.M. as needed for tremor Discontinued insulin glargine-yfgn 100 unit/mL (3 mL) insulin pen See Rx Instructions subcut BID Rx Instructions: 22 units subcutaneously twice a day; Take 15 U twice daily if not eating or if nausea and vomiting Referrals / Follow Up: Keshav Lambert, [Primary Care Provider] - In 1 Week Elie Zuñiga DPM [Med Staff - Active Staff] - In 1 Week (please see in 1 week at wound center ) Terry Lopez MD [Med Staff - Active Staff] - Within 2 Weeks Disposition Disposition (needs filled in before D/C Order can be placed): Home Health Service
--- NOTE | 2022-01-31 12:31 | PCM.DC.SUM ---
Providers Date of Admission: 01/28/22 Date of Discharge: 01/31/22 Primary Care Physician: Dr. Keshav Lambert, DO Consultations 01/28/22 16:23 Consult: Infectious Disease Routine Consulting Provider: Koby Hills Reason for Consult: Right foot infection EMERGENT Consult: No Notified: Yes Date Notified: 01/29/22 Time Notified: 04:31 Method of Notification: Answering Service Consult: Podiatry Routine Consulting Provider: Elie Zuñiga Reason for Consult: Right foot infection EMERGENT Consult: No MD Notified: Yes Date Notified: 01/28/22 Time Notified: 19:40 Method of Notification: Verbal 01/29/22 01:06 Consult: Onc/Wound/teaching dietitian Routine Comment: Reason for Consult:: Rt foot wound 01/30/22 13:14 Consult: Vascular Surgery Routine Consulting Provider: Terry Lopez Reason for Consult: left foot wound in setting of PAD EMERGENT Consult: No MD Notified: Yes Date Notified: 01/30/22 Time Notified: 13:14 Method of Notification: Text Reason For Visit: ACUTE RIGHT FOOT INFECTION Diagnosis Discharge Diagnosis (1) Postoperative wound infection: Status: Acute Code(s): T81.49XA - Infection following a procedure, other surgical site, initial encounter (2) Type 2 diabetes mellitus with diabetic polyneuropathy: Status: Chronic Code(s): E11.42 - Type 2 diabetes mellitus with diabetic polyneuropathy Qualifiers: Diabetes mellitus termite control servicer insulin use: without halfway use Qualified Code(s): E11.42 - Type 2 diabetes mellitus with diabetic polyneuropathy (3) Non-pressure chronic ulcer of other part of right foot with fat layer exposed: Status: Chronic Code(s): L97.512 - Non-pressure chronic ulcer of other part of right foot with fat layer exposed Plan 1. Acute infected right foot ulcer, osteomyelitis of the right foot, 2. Anemia, likely secondary to acute blood loss 3. Type II DM, complicated by peripheral neuropathy 4. Hypertension 5. CKD stage IIIa 6. Obesity Medications at Discharge Home Medications acetaminophen 325 mg tablet (Tylenol) 650 mg PO Q6H PRN PRN Pain 1-10 Or Fever #0 tabs 11/13/21 ascorbic acid (vitamin C) 500 mg tablet (Vitamin C) 500 mg PO DAILY SUPPLEMENT 01/13/22 oxycodone-acetaminophen 5 mg-325 mg tablet 1 tab PO Q6H PRN pain 7 days #28 tabs 01/17/22 aspirin 325 mg tablet 325 mg PO DAILY BP 01/28/22 ferrous sulfate 325 mg (65 mg iron) tablet 325 mg PO DAILY ANEMIA 01/28/22 garlic 100 mg tablet 10 mg PO DAILY SUPPLEMENT 01/28/22 lisinopril 10 mg tablet 10 mg PO DAILY BP 01/28/22 metformin 1,000 mg tablet 1,000 mg PO BID BLOOD SUGAR 01/28/22 multivitamin 1 tab PO DAILY SUPPLEMENT 01/28/22 propranolol 80 mg capsule,24 hr,extended release 80 mg PO DAILY PRN TREMORS 01/28/22 amoxicillin 875 mg-potassium clavulanate 125 mg tablet 1 tab PO BID #80 tabs 01/30/22 doxycycline hyclate 100 mg capsule 100 mg PO BID #80 caps 01/30/22 insulin glargine-yfgn 100 unit/mL (3 mL) subcutaneous pen 35 unit (0.35 mL) subcut BID 30 days #21 mL 01/31/22 Hospital Course Operations None Procedures - (beside I & D done) Summary of Care Provided Minutes Spent on Discharge: 35 Hospital Course: 76-year-old female with past medical history of chronic right foot osteomyelitis, status post recent partial 5th toe ray amputation on 01/17/2022, type II DM complicated by peripheral neuropathy, who comes in with worsening discharge or foul-smelling odor from the right foot ulcer. Since her discharge after March amputation, patient has had problems with application of her wound VAC. She has been followed up with home health. She was noted to have increased discharge with foul-smelling odor from the wound. In the emergency department, her vitals were stable. Her WBC was 16.6. X-ray of her right foot showed soft tissue swelling and subcutaneous air at the previous surgical site. Patient was admitted to the [facility] floor and started on IV vancomycin and Zosyn. Podiatry was consulted. A bedside wound debridement was done on the day of admission by podiatry. Wound cultures grew staph obvious and Proteus mirabilis. Infectious disease was also consulted. Patient had MRI of the foot that showed osteomyelitis of the fourth toe. Patient was discharged on oral doxycycline and Augmentin. She will follow-up closely with podiatry. Home health will also follow-up with dressing changes. Physical Exam Narrative Physical exam: General: Alert, oriented x3, pale, obese HEENT: Atraumatic Oral: Moist Mucosa Neck: Supple Lungs: Diminished to auscultation Cardiovascular: HS I+II, regular, no murmurs Abdomen: Bowel Sounds Present, Soft, Non Tender Extremities: No edema, dressing over the right foot Skin: No rashes, No breakdown Neurological: Grossly intact Psych/Mental Status: Appropriate Weight / BMI Weight Weight: 101.4 kg Body Mass Index (BMI) 37.8 ABG / Lab / Microbiology Data Result Diagrams: 01/31/22 05:06 01/31/22 05:06 Laboratory: Laboratory Results - last 24 hr 01/30/22 06:31: Diff Path Review Reviewed 01/30/22 17:04: POC Glucose 369 H 01/30/22 21:09: POC Glucose 371 H 01/31/22 05:06: WBC 17.4 H, RBC 3.16 L, Hgb 9.3 L, Hct 28.3 L, MCV 89.6, MCH 29.4, MCHC 32.9, RDW Std Deviation 47.8 H, RDW Coeff of Bety 14.6, Plt Count 641 H, MPV 10.1, Immature Gran % (Auto) 0.800, Neut % (Auto) 78.6 H, Lymph % (Auto) 11.7 L, [place] % (Auto) 7.7, Eos % (Auto) 1.0, Baso % (Auto) 0.2, Absolute Neuts (auto) 13.7 H, Absolute Lymphs (auto) 2.03, Nucleated RBC % 0 01/31/22 05:06: Sodium 136, Potassium 3.8, Chloride 104, Carbon Dioxide 26.0, Anion Gap 6, BUN 26 H, Creatinine 1.22 H, Estim Creat Clear Calc 34.93, Est GFR (MDRD) Af Amer 55 L, Est GFR (MDRD) Non-Af 46 L, BUN/Creatinine Ratio 21.3 H, Glucose 258 H, Calcium 8.9, Total Bilirubin 0.30, AST 18, ALT 22, Alkaline Phosphatase 68, Total Protein 6.9, Albumin 1.8 L, Globulin 5.1 H, Albumin/Globulin Ratio 0.4 L 01/31/22 06:33: POC Glucose 213 H 01/31/22 11:34: POC Glucose 229 H Microbiology: Microbiology 01/28/22 17:04 Wound - Right Foot Gram Stain - Final 01/28/22 17:04 Wound - Right Foot Wound Culture - Preliminary Staphylococcus aureus Proteus mirabilis Radiography Diagnostic Testing: Radiology Impression Lower Extremity MRI 01/30/22 15:38 IMPRESSION: amputation of the head of the 5th metatarsi. Soft tissue defect over the amputation site. This is likely post surgical. Possible osteomyelitis of the base of the 4th proximal phalanx. Electronically Signed: Tate Perez MD at 17:17 EST Reading Location ID and State: [facility] / [place] , Service support , D/C Instructions Discharge Diet: Low fat / Low cholesterol, 1800 Calorie Control Diet and 2000 mg Sodium Diet Meaningful Use Info Meaningful Use Diagnoses (Choose all that apply): None applicable Discharge Plan Admission Admit Date/Time: 01/28/22 11:57 Primary Reason for Your Visit: Acute right foot osteomyelitis Attending Provider: Linh Mahajan Primary Care Provider: Keshav Lambert Consulting Providers: Elie Zuñiga ; Koby Hills ; Terry Lopez Instructions Additional Instructions / Restrictions: Patient will require home health care dressing changes consisting of dakin's soaked gauze, 4x4s, kerlix. This dressing should be performed 3 times a week per home health care dressing changes Patient will follow up with dr. zuñiga in 1 week on at the wound care center patient should remain non-weightbearing to right foot to avoid additional tissue injury, patient can occassionaly bear weight to heel on right in surgical shoe assisted by walker for transfer to bathroom Discharge Orders/Prescriptions Prescriptions: New doxycycline hyclate 100 mg capsule 100 mg PO BID Qty: 80 0RF amoxicillin-pot clavulanate 875-125 mg tablet 1 tab PO BID Qty: 80 0RF insulin glargine-yfgn 100 unit/mL (3 mL) Insulin Pen 35 unit subcut BID 30 Days Qty: 21 0RF Continued acetaminophen [Tylenol] 325 mg Tablet 650 mg PO Q6H PRN PRN (Reason: Pain 1-10 Or Fever) Qty: 0 0RF ascorbic acid (vitamin C) [Vitamin C] 500 mg Tablet 500 mg PO DAILY oxycodone-acetaminophen 5-325 mg tablet 1 tab PO Q6H PRN (Reason: pain) 7 Days Qty: 28 0RF Rx Instructions: Take 1 tablet every 6 hours as needed postoperative pain aspirin 325 mg Tablet 325 mg PO DAILY garlic 100 mg Tablet 10 mg PO DAILY multivitamin Tablet 1 tab PO DAILY ferrous sulfate 325 mg (65 mg iron) tablet 325 mg PO DAILY metformin 1,000 mg tablet 1,000 mg PO BID lisinopril 10 mg tablet 10 mg PO DAILY propranolol 80 mg capsule,extended release 24 hr 80 mg PO DAILY PRN (Reason: TREMORS) Rx Instructions: Daily in the A.M. as needed for tremor Discontinued insulin glargine-yfgn 100 unit/mL (3 mL) insulin pen See Rx Instructions subcut BID Rx Instructions: 22 units subcutaneously twice a day; Take 15 U twice daily if not eating or if nausea and vomiting Referrals / Follow Up: Keshav Lambert DO [Primary Care Provider] - In 1 Week Terry Lopez MD [Med Staff - Active Staff] - Within 2 Weeks Elie Zuñiga DPM [Med Staff - Active Staff] - In 1 Week (please see in 1 week at wound center ) Disposition Disposition (needs filled in before D/C Order can be placed): Home Health Service Charges/Coding Visit Charges Inpatient E&M: 30975 Disch Hosp
== END 2022-01-31 15:02 | disposition home health service (06) | DRG 464 ==
LOC: ED 11:23 → MS3 15:44
PROVIDERS: Admitting Provider Internal Medicine; Emergency Provider Emergency Medicine; PCP Family Medicine; Visit Provider Internal Medicine
DX: T87.43 Infection of amputation stump, right lower extremity (principal); M86.9 Osteomyelitis, unspecified; D62 Acute posthemorrhagic anemia; L97.512 Non-pressure chronic ulcer of other part of right foot with fat layer exposed; G54.6 Phantom limb syndrome with pain; E11.22 Type 2 diabetes mellitus with diabetic chronic kidney disease; E11.42 Type 2 diabetes mellitus with diabetic polyneuropathy; E11.621 Type 2 diabetes mellitus with foot ulcer; Z79.4 Long term (current) use of insulin; N18.31 Chronic kidney disease, stage 3a; E11.69 Type 2 diabetes mellitus with other specified complication; Z89.411 Acquired absence of right great toe; E11.51 Type 2 diabetes mellitus with diabetic peripheral angiopathy without gangrene; I12.9 Hypertensive chronic kidney disease with stage 1 through stage 4 chronic kidney disease, or unspecified chronic kidney disease; E78.5 Hyperlipidemia, unspecified; Y83.5 Amputation of limb(s) as the cause of abnormal reaction of the patient, or of later complication, without mention of misadventure at the time of the procedure; B95.8 Unspecified staphylococcus as the cause of diseases classified elsewhere; B96.4 Proteus (mirabilis) (morganii) as the cause of diseases classified elsewhere; Z79.82 Long term (current) use of aspirin; Z79.899 Other long term (current) drug therapy
CPT/HCPCS: 36415; 73630; 73718; 80053; 80202; 82728; 82962; 83540; 83550; 83605; 85025; 85045; 85652; 86140; 86850; 86900; 86901; 86920; 86922; 87070; 87077; 87186; 87205; 97802; 99251; 99284; J7030; J7040; J7050; P9016; A4216; G0463; J1940

== ENCOUNTER → 2022-02-11 | Outpatient (CLI) | payer OTHER, SELFPAY ==
[2022-02-11 10:15] LABS: Absolute Lymphocyte Count 2.89 X10^3/uL (0.83-4.51); Absolute Neutrophil Count 8.4 X10^3/uL (2.0-7.7); Basophil# 0.05 X10^3/uL; Basophil% 0.4 % (0-1); Eosinophil# 0.22 X10^3/uL; Eosinophils% 1.8 % (0-5); Hematocrit 33.7 % (37-47); Hemoglobin 10.5 g/dL (12.0-15.0); Lymphocyte # 2.89 X10^3/ul (0.83-4.51); Lymphocyte % 23.3 % (19-41); Mean Corp Hgb Conc 31.2 g/dL (32-36); Mean Corpuscular Hgb 28.2 pg (27.0-32.0); Mean Corpuscular Volume 90.6 fL (81-99); Mean Platelet Vol. 9.6 fl (6.2-12.0); Monocyte# 0.75 X10^3/uL; NRBC Flagged by Analyzer 0 % (0-5); Neutrophil # 8.42 X10^3/uL (2.7-7.7); Neutrophil % 67.9 % (47-70); POSITIVE COUNT YES; Platelet Count 776 K/mm3 (150-450); RBC Distribution Width CV 15.7 % (11.6-14.6); RBC Distribution Width SD 51.8 fl (35.1-43.9); Red Blood Count 3.72 M/mm3 (4.2-5.4); White Blood Count 12.4 K/mm3 (4.4-11.0)
[2022-02-11 10:18] LABS: Differential Indicated SCAN CRITERIA MET
[2022-02-11 10:41] LABS: Platelet Estimate MKD INC (ADEQ)
[2022-02-11 10:50] LABS: Anion Gap 9 (5-15); BUN 20 mg/dL (7-18); BUN/Creat Ratio 15.7 RATIO (10-20); Calcium,Total 9.3 mg/dL (8.5-10.1); Chloride 106 mmol/L (98-107); Creatinine, Serum 1.27 mg/dL (0.55-1.02); EST Glomerular Filtration Rate 44 mL/min (>60); Est Glom Filt Rate - Afr Amer 53 mL/min (>60); Glucose 229 mg/dL (74-106); Potassium 4.3 mmol/L (3.5-5.1); Sodium Level 137 mmol/L (136-145)
[2022-02-11 15:36] LABS: Pathologist Review Reviewed
== END | disposition home or self-care (01) ==
LOC: LAB 09:49
PROVIDERS: PCP Family Medicine; Referring Provider Physician Assistant; Visit Provider Physician Assistant
DX: D50.9 Iron deficiency anemia, unspecified (principal); L97.502 Non-pressure chronic ulcer of other part of unspecified foot with fat layer exposed; E11.9 Type 2 diabetes mellitus without complications
CPT/HCPCS: 36415; 80048; 85025

== ENCOUNTER 2022-02-20 10:28 | Day surgery (SDC) | payer SELFPAY, OTHER ==
[2022-02-19 08:58] VITALS: BMI 37.8
[2022-02-20 11:03] LABS: Anion Gap 7 (5-15); BUN 25 mg/dL (7-18); BUN/Creat Ratio 19.8 RATIO (10-20); Calcium,Total 9.6 mg/dL (8.5-10.1); Chloride 107 mmol/L (98-107); Creatinine, Serum 1.26 mg/dL (0.55-1.02); EST Glomerular Filtration Rate 44 mL/min (>60); Est Glom Filt Rate - Afr Amer 53 mL/min (>60); Estimated Creatinine Clearance 33.83 ml/min; Glucose 178 mg/dL (74-106); Potassium 4.2 mmol/L (3.5-5.1); Sodium Level 138 mmol/L (136-145)
[2022-02-20 14:30] LABS: ACT Activated Clotting Time 251 sec (74-137)
--- NOTE | 2022-02-20 16:04 | OP.PCM_ITS ---
Report of Operation Date of Procedure: 02/20/22 Pre-Operative Diagnosis: atherosclerosis with ulceration of right lower extremi ty Post-Operative Diagnosis: same Surgery/Procedure Performed:: aortogram, right lower extremity runoff, right popliteal angioplasty Description of Surgical Findings:: right popliteal stenosis, peroneal runoff Surgeon: Terry Lopez Type of Anesthesia: Local and Sedation,Conscious Estimated Blood Loss (mL): 5 Description of Procedure: HPI: Patient is a 76 a female with nonhealing right lower extremity wound and PVRs revealed mild to moderate arterial insufficiency. She has failed to heal her digit wound despite maximal local therapy so she is taken down to the [facility] for angiography with possible invention. Description of procedure: Upon obtaining form consent and verification correct patient procedure site patient was taken to the [facility] where she was positioned prepped and draped in usual sterile fashion. Time was performed and conscious sedation administered with intermittent doses of Versed and fentanyl. Skin over the left common femoral artery was anesthetized 1% lidocaine and the vessel accessed in a retrograde fashion under ultrasound guidance with microneedle wire. This was then exchanged out for a micropuncture sheath through which hand-injection femoral angiogram was performed revealing satisfactory location with no extravasation or dissection. Through this a Bentson wire was advanced abdominal aorta micropuncture sheath exchanged out for a short 5 Filipino sheath. Through this a Omni Flush catheter advanced abdominal aorta and digital subtraction aortogram pelvic angiogram was performed with CO2. With a navigated contralateral external iliac position sequential right lower extremity runoff was performed which revealed a popliteal stenosis with near occlusion, length of lesion approximately 15 cm. For this lesion was appropriate for intervention so the patient was then heparinized and allowed to circulate for the minutes. Bentson wire was then readvanced and positioned within the mid superficial femoral artery and the catheter withdrawn. The 5 Filipino sheath were then exchanged out for 6 Filipino Ansell sheath which was advanced in the position of proximal superficial femoral artery. From this position we traverse the lesion using Bentson wire and an angled catheter. After the catheter was advanced beyond the lesion the wire withdrawn and hand- injection angiography was performed revealed satisfactory placement within the true lumen. Next a 5 mm spider filter was selected and advanced through the catheter position below the lesion. The catheter was withdrawn and the lesion balloon angioplastied with an angioscope balloon 5 x 100, with 2 inflations required to cover the entirety of the length. The balloon was then deflated withdrawn and repeat angiography revealed satisfactory resolution of the lesion with no extravasation or dissection. Next a [employer] paclitaxel coated angioplasty balloon was brought to field and prepped for manufacturing instructions, 5 mm x 120. This inflated for 1 minute to nominal and then deflated withdrawn. A second paclitaxel coated balloon 5 x 60 was advanced position with satisfactory overlap with initial balloon inflated nominal for 3 minutes then deflated withdrawn. Repeat angiography revealed satisfactory resolution of the lesion with no extravasation dissection and brisk contrast transit across the lesion. The filter was then retrieved and the long 6 Filipino sheath exchanged for a short 6 Filipino sheath. A 6 Filipino minx was then deployed followed by 2 minutes of manual pressure. Radiograph interpretation: Abdominal aorta normal caliber no significant atherosclerosis or stenosis Left common and external iliac arteries widely patent with no significant atherosclerosis or stenosis Right common and external iliac arteries widely patent no atherosclerosis or stenosis. Right common femoral profunda and superficial femoral arteries widely patent atherosclerosis or stenosis. Above-knee popliteal with approximately 15 cm length stenosis with near occlusion of the midportion of the lesion. Below- knee popliteal patent with no atherosclerosis or stenosis, peroneal artery dominant runoff to the ankle with no significant atherosclerosis or stenosis. Proximal anterior tibial posterior tibial artery short segment occlusion with reconstitution distally. Popliteal lesion resolved with satisfactory result, no residual stenosis.
== END 2022-02-20 16:40 | disposition home or self-care (01) ==
PROVIDERS: PCP Family Medicine; Referring Provider Surgery Trauma Surgery; Visit Provider Surgery Trauma Surgery
DX: E11.52 Type 2 diabetes mellitus with diabetic peripheral angiopathy with gangrene (principal); I70.261 Atherosclerosis of native arteries of extremities with gangrene, right leg; E11.621 Type 2 diabetes mellitus with foot ulcer; L97.912 Non-pressure chronic ulcer of unspecified part of right lower leg with fat layer exposed; Z79.4 Long term (current) use of insulin; D50.9 Iron deficiency anemia, unspecified; Z79.82 Long term (current) use of aspirin; Z79.899 Other long term (current) drug therapy
CPT/HCPCS: 36200; 36245; 36415; 37224; 75625; 75710; 76937; 80048; 85347; 99152; 99153; C1725; C1760; C1769; C2623; Q9967; C1884; C1887

== ENCOUNTER → 2022-03-18 | Outpatient (CLI) | payer SELFPAY, OTHER ==
--- NOTE | 2022-03-18 13:50 | ART_ITS ---
Reason For Study: atherosclerosis, S/P popliteal angioplasty Procedure A bilateral lower extremity continuous wave Doppler with analog waveform analysis,segmental pressures,and ankle brachial indexes with exercise. Left Segmental Pressures Left brachial= 138mmHg. Left posterior tibial artery = 241mmHg. Left digit = 123 mmHg. DPA is noncompressible. The left dorsalis pedis waveforms are biphasic. The left posterior tibial artery waveforms are biphasic. Right Segmental Pressures Right brachial= 129mmHg. Right posterior tibial artery = 172mmHg. Right dorsalis pedis artery = 213mmHg. The right dorsalis pedis waveforms are biphasic. The right posterior tibial artery waveforms are biphasic. Indices The right ankle brachial index by the dorsalis pedis is 1.54. The right ankle brachial index by the posterior tibial artery is 1.25. The right digital-brachial index is .17. The left ankle brachial index by the posterior tibial artery is 1.75. The left digital-brachial index is .89. DPA is noncompressible. VL/Ankle Brachial Index Interpretation Summary Right KYM 1.54, artificially elevated due to non-compressible vessels. Doppler/ PVR waveforms of the right leg mildly diminished. TBI diminished, pedal/digit disease. Left KYM 1.75 artificially elevated due to non-compressible vessels. TBI and Do ppler/PVR waveforms of the left leg normal at rest Ordering Physician: Terry Lopez Performed By: Mansoor Marti, RVT
== END | disposition home or self-care (01) ==
PROVIDERS: PCP Family Medicine; Referring Provider Surgery Trauma Surgery; Visit Provider Surgery Trauma Surgery
DX: I70.261 Atherosclerosis of native arteries of extremities with gangrene, right leg (principal)
CPT/HCPCS: 93922; 93926

== ENCOUNTER 2022-03-21 21:40 | Inpatient (IN) | payer SELFPAY, OTHER ==
[2022-03-21] VITALS (11 sets, daily range): BP systolic 116–145; BP diastolic 56–66; PULSE 65–78; RESP 16–18; TEMP 36.1–36.6; O2SAT 95–100; BMI 37.0
[2022-03-21] MEDS: Lactated Ringers 1,000 ML 15 ML IV ×2 (11:08→22:01)
[2022-03-21 11:16] LABS: Bedside Glucose 178 mg/dL (74-106)
--- NOTE | 2022-03-21 12:30 | BON_PTH ---
PATIENT: LUC HODGES LOC: [facility]3 U#:[id number] AGE/SX: 76/F ROOM: ND322 RE03/21/[address]: Dr. Elie Zuñiga DPM : 1945 BED: 1 DIS: 03/25/2022 SPEC #: [id number] RECD: 03/24/22 07:37 STATUS: SOUAlice REQ #: [id number] LORENZA: 03/21/22 12:[address]: Elei Zuñiga DEPT: SURGICAL PATHOLOGY RECD BY: Jami Murray ENTERED: 03/24/22 11:28 SP TYPE: Bone OTHR DR: MD Dr. Linh Wooten MD Dr. Autumn L White, MD Dr. Mary Catherine Sementi, DO Dr. Keshav Lambert, DO MD Ameya Vang MD Dr. Eric Jopperi, DO MD Dr. Hernando Cavanaugh MD Dr. James Mooney, MD Dr. Jonathan Vogt, DO Dr. Claire Knight, DO MD Dr. Theodore Orellana, DO MD Dr. Honorio Theodore MD Dr. Prakash Chand, MD Dr. Paul Nielsen, MD Dr. Paige Pierce, MD Dr. Ryan Burkholder, MD Jessica Franklin, BREAKDOWN MILL OPERATOR-C Tissues: A - Bone of foot, NOS B - Bone of foot, NOS C - Bone of foot, NOS D - Bone of foot, NOS Procedures: Decalcification bone/plaque Surgery Specimen Level IV HEADER OPERATION: Holley Suh amputation PRE-OP DIAGNOSIS: Osteomyelitis right fourth digit on right foot TISSUE SUBMITTED: A - Fourth toe right foot, B - Fourth metatarsal right foot, C - Kenney metatarsal right foot, D - Right forefoot MICROSCOPIC DIAGNOSIS A. Fourth toe right foot, amputation: A piece of bone with acute osteomyelitis. B. Fourth metatarsal right foot: A piece of bone with acute osteomyelitis. C. Fifth metatarsal right foot: A piece of bone with acute osteomyelitis. D. Right forefoot, amputation: Focal acute and chronic inflammation and abscess formation. Bone adjacent to the third toe with acute osteomyelitis. SJ:rosario 03/26/2022 MICROSCOPIC DESCRIPTION Slides are reviewed. GROSS DESCRIPTION A - Received in fixative is one container labeled with the patient's name and designated fourth toe right foot. The specimen consists of a portion of toe measuring 4.0 x 1.5 x 1.0 cm. The nail appears atrophic. The skin surface shows gangrenous necrosis. Longitudinal section of the toe is submitted after decalcification. B - Received in fixative is one container labeled with the patient's name and designated fourth metatarsal right foot. The specimen consists of an elongated piece off bone measuring 3.2 x 1.0 x 0.7 cm. Superintendent Building sections are submitted in one cassette after decalcification. C - Received in fixative is one container labeled with the patient's name and designated fifth metatarsal right foot. The specimen consists of an irregular piece of bone measuring 2.0 x 2.0 x 1.5 cm. Superintendent Building sections are submitted in one cassette after decalcification. D - Received in fixative is one container labeled with the patient's name and designated right forefoot. The specimen consists of a portion of foot containing three toes, great toe and adjacent two toes, measuring 6.5 x 6.0 x 3.0 cm. The skin surface appears unremarkable. The nail appears atrophic. Also present in the container are portion of three metatarsals measuring in aggregate 5.0 x 4.0 x 1.5 cm. Also present in the container is a piece of bone with attached soft tissue containing portion of metatarsal bone measuring in aggregate 8 x 3.0 x 2.5 cm. Also present in the container is a portion of metatarsal bone measuring 2.0 x 2.0 x 1.5 cm. Superintendent Building sections are submitted in three cassettes as follows: 1??soft tissue close to the third toe, 2 & 3 - bone after decalcification and the area of third toe. / SHAUN:rosario 03/24/2022 TC:2 CPT: 75114 x4, 18525 x4
--- NOTE | 2022-03-21 14:02 | DCINST_ITS ---
Discharge Instructions Diet Discharge Diet: No restrictions Activity Discharge Activity: May Not Shower and Use Walker (Nonweightbearing to right lower extremity with aid of walker or wheelchair) Weight Bearing Status: No weight bearing (Nonweightbearing to right lower extremity with aid of walker or wheelchair) Keep extremity elevated above heart level: Right Leg (Elevate right lower extremity at all times of rest for postoperative edema control) Dressing / Incision Call your doctor if you observe: Fever of 101 or Higher, Chest pain, Calf discomfort and Uncontrolled pain Change Dressing in: leave in place till F/U (Leave dressing in place. Physician will change dressing at first postop visit.) Remove Dressing in: do not remove dressing (Leave dressing in place physician will change dressing at first postop visit) Cleanse incision/area with: Do not get Incision Wet (Do not get surgical site wet.) and Keep Dressing Clean & Dry (Keep dressings clean, dry, and intact to the right foot) Follow Up Care Please Follow Up With: Elie Zuñiga DPM When: Patient has first postoperative appointment scheduled in office Test Results: Test results from this visit will be discussed in further detail at your follow- up appointment, if applicable. Discharge Plan Admission Attending Provider: Elie Zuñiga Primary Care Provider: Keshav Lambert Discharge Orders/Prescriptions Prescriptions: No Action atorvastatin 80 mg tablet 80 mg PO DAILY Qty: 30 5RF (DME) [employer] hydrocolloid thin dressing See Rx Instructions .Route .MEDSUPPLY Qty: 1 0RF Rx Instructions: As directed clopidogrel [Plavix] 75 mg tablet 75 mg PO DAILY Qty: 90 2RF ferrous sulfate 325 mg (65 mg iron) tablet 325 mg PO DAILY Qty: 90 2RF acetaminophen [Tylenol] 325 mg Tablet 650 mg PO Q6H PRN PRN (Reason: Pain 1-10 Or Fever) Qty: 0 0RF ascorbic acid (vitamin C) [Vitamin C] 500 mg Tablet 500 mg PO DAILY garlic 100 mg Tablet 10 mg PO DAILY multivitamin Tablet 1 tab PO DAILY metformin 1,000 mg tablet 1,000 mg PO BID lisinopril 10 mg tablet 10 mg PO DAILY propranolol 80 mg capsule,extended release 24 hr 80 mg PO DAILY Rx Instructions: Daily in the A.M. as needed for tremor amlodipine 5 mg Tablet 5 mg PO DAILY insulin glargine [Basaglar KwikPen U-100 Insulin] 100 unit/mL (3 mL) Insulin Pen 22 unit SUBCUT BID aspirin 81 mg Capsule 81 mg PO DAILY Referrals / Follow Up: Keshav Lambert DO [Primary Care Provider] - Disposition Disposition (needs filled in before D/C Order can be placed): Home, Self Care
--- NOTE | 2022-03-21 15:00 | RAD_ITS ---
STUDY: X-RAY - RIGHT FOOT CLINICAL: Female, 76 years old. Pain. TECHNIQUE: 21 intraoperative view(s) of the foot. COMPARISON: January 28, 2022. FINDINGS: The images demonstrate transmetatarsal resection of the first through fourth metatarsals. Please refer to operative report for details. RAD/Foot 2 Views IMPRESSION: Intraoperative images demonstrate transmetatarsal amputation of the right foot. Electronically Signed: Julian Suero DO at 23:01 EST ,
[2022-03-21] MEDS: Cefazolin 2 GM in 0.9% Normal Saline 100 ML IV (15:27)
[2022-03-21] MEDS: Bupivacaine Mpf 0.5% 30 ML VIAL (15:51)
[2022-03-21] MEDS: Lidocaine 1% (30 ml sdv) 30 ML Vial (15:51)
[2022-03-21] MEDS: Vancomycin IV 1,000 MG/20 ML Vial 1000 MG OPERA.SITE (18:45)
--- NOTE | 2022-03-21 19:40 | RAD_ITS ---
STUDY: X-RAY - RIGHT FOOT CLINICAL: Female, 76 years old. Postop. TECHNIQUE: 3 view(s) of the foot. COMPARISON: January 28, 2022. FINDINGS: There are enthesophytes at the insertion of the Achilles tendon and plantar aponeurosis upon an otherwise normal calcaneus. Normal visualized subtalar, talonavicular, calcaneocuboid, tarsal and tarsometatarsal articulations. Normal talus tarsal bones. There is amputation of the foot at the level of the tarsometatarsal joints. Prominence of soft tissues with soft tissue air. RAD/Foot min 3 Views IMPRESSION: Status post amputation of the forefoot. Electronically Signed: Julian Suero DO at 23:06 EST Reading Location ID and State: [address] [place] Tel [phone], Service support ,
--- NOTE | 2022-03-21 19:59 | PCM.OPRPT ---
Problems Associated Problem List Diagnoses (1) Diabetic ulcer of foot associated with diabetes mellitus due to underlying condition, with fat layer exposed: (2) Type 2 diabetes mellitus with diabetic polyneuropathy: (3) Obesity (BMI 30-39.9): (4) Non-pressure chronic ulcer of other part of right foot with fat layer exposed: (5) Osteomyelitis of right foot: (6) Atherosclerosis of [place] arteries of extremities with gangrene, right leg: (7) Acquired absence of other right toe(s): Report of Operation Date of Procedure: 03/21/22 Pre-Operative Diagnosis: 1. Dry gangrene right foot 2. Osteomyelitis fourth digit, fourth metatarsal, and fifth metatarsal right foot 3. Nonpressure chronic ulceration of right lateral foot with exposed bone 4. DM type II with peripheral polyneuropathy 5. Peripheral vascular disease Post-Operative Diagnosis: 1. Dry gangrene right foot 2. Osteomyelitis fourth digit, fourth metatarsal, and fifth metatarsal right foot 3. Nonpressure chronic ulceration of right lateral foot with exposed bone 4. DM type II with peripheral polyneuropathy 5. Peripheral vascular disease Surgery/Procedure Performed:: 1. Partial fourth ray resection of the right foot with debridement of necrotic tissue. This was transitioned to Lisfranc amputation of the right foot 2. Swing flap/tissue rearrangement for adequate closure right foot Description of Surgical Findings:: See operative note for findings Surgeon: Elie Zuñiga property claim rep: Cristel Paniagua DPM PGY-1 Type of Anesthesia: Local (30cc 1:1 mixture of 1% lidocaine plain and 0.5% Marcaine plain) and MAC Specimen's removed: Tissue right foot Fifth metatarsal bone right foot Fourth metatarsal bone right foot Right forefoot bones and tissue Drains: None Estimated Blood Loss (mL): < 20mL Description of Procedure: HPI/indication: This is a 76-year-old female with history of diabetes mellitus type 2 with peripheral polyneuropathy who underwent fifth digit amputation 11/11/2021 at [facility] to treat underlying infection of the fifth digit. Patient went on to breakdown of her amputation stump secondary to leaving her foot down and ambulating leading to edema and dehiscence of her prior surgical stump. Following local wound care she developed infection in the fifth metatarsal and underwent partial fifth ray amputation of the right foot on 01/17/2022. Patient was treated with wound VAC therapy following amputation. She did have visiting nursing assisting in dressing changes however did develop necrosis of her amputation stump secondary to breakdown in her vascular status creating tissue necrosis/dry gangrene with eventual development of osteomyelitis of the remaining foot fifth metatarsal stump and fourth digit and fourth metatarsal head. She was admitted to [facility] for treatment of infection and underwent vascular intervention on 02/20/2022 of the right lower extremity. The recommended wait time to allow tissue to declare itself was carried out and patient was scheduled to undergo debridement of necrotic tissue of the right foot with partial fourth ray amputation on 03/21/2022. During this time she was treated with local wound care in office with visiting nursing assisting dressing changes. I discussed with family prior to surgery that this is a limb salvage procedure as family would like to prevent a more proximal amputation. I discussed risks of the salvage procedure and discussed that she would still be at high risk for a more proximal amputation given her condition and status. I discussed with him the planned surgical procedure in detail. I explained all benefits and risks. I discussed with them the risks include but are not limited to: Infection, pain, continued pain, complex regional pain syndrome, numbness/neuritis, deformity, continued deformity, scar tissue, poor cosmetic result, dehiscence, delayed healing/nonhealing, swelling, recurrence of her gangrenous tissue secondary to peripheral vascular disease/vascular intervention, the need for additional surgery, more proximal amputation, inability to wear shoes, difficulty in ambulation, difficulty with balance, blood clot, allergic reaction, loss of function, loss of limb, and loss of life. Patient and family voiced understanding of this. Patient and family were able to repeat these back. No promises or guarantees were made. Patient was cleared by PCP for surgical intervention. I reviewed H&P prior to surgery. Diagnostic data reviewed prior to surgery. Consent was signed and obtained freely. Operative limb was signed prior to entering the OR. Procedure: Under mild sedation patient was brought into the operating room placed in the supine position. Following induction of IV anesthesia a a local anesthetic block was performed about the patient's right ankle consisting of 10 cc of a 1:1 mixture of 1% lidocaine plain and 0.25% Marcaine plain. Next pneumatic ankle tourniquet was placed about the patient's lower calf. Next, the foot was scrubbed, prepped, and draped in usual aseptic manner. The right lower extremity was elevated and the pneumatic ankle tourniquet was inflated to 250 mmHg. At this time attention was directed to the right foot where several fluoroscopic images in multiple views were made prior to incision confirming osteomyelitis of the proximal phalanx and head of the fourth metatarsal. Next incision was made utilizing #15 blade overlying the area of demarcation of gangrene at the dorsal lateral aspect of the base of the fourth digit and made encompassing the fourth digit straight to bone. The digit was then disarticulated at the metatarsal phalangeal joint and sent to pathology for culture. At this time attention was directed to the lateral aspect of the right foot at the previous fifth metatarsal amputation stump where an ulcerative site was noted down to the level of the fifth metatarsal and to the adjacent fourth metatarsal head with necrotic tissue about the wound margin extending overlying the base of the fifth metatarsal and plantar lateral foot at the level of the midshaft of the fourth and third metatarsals. Healthy skin was noted to the remaining forefoot sub third, sub second, and sub first metatarsal heads. Dorsal foot and medial skin noted to be healthy in appearance. Ulcerative site measures 7.5 cm x 4.2 cm x 1.5 cm. This ulceration encompassed the greater portion of the lateral forefoot. Through the lateral aspect of the wound the fourth metatarsal was exposed via sharp dissection and transected at the level of the midshaft utilizing a sagittal saw. The fourth metatarsal bone was transected and sent to microbiology and pathology for culture and analysis. Next via sharp dissection the blackened necrotic tissue of the lateral aspect of the foot was sharply debrided and collected for specimen for pathology. Next utilizing a versa jet and sharp dissection further debridement of the site was performed to healthy bleeding tissue. The site was then flushed with copious amounts of normal sterile saline. Following debridement analysis of the healthy viable bleeding tissue was performed and noted that extensive tissue damage had occurred with exposed bone of the fifth metatarsal base and fourth metatarsal stump. At this point in time I broke scrub to discuss further intervention with family to obtain consent for a more proximal amputation within the foot. I discussed with family [id number] the nature of the current situation and increased likelihood of infection due to her exposed bone should we continue with the procedure as planned. I discussed with them performing a more proximal amputation within the foot, a Lisfranc amputation. I discussed with family risks and benefits of this procedure with the ultimate goal of salvaging her limb giving her the best chance for a stable plantigrade foot for propulsion once healed. Family agrees that this is a better option than a below the knee amputation and have given full consent to proceed forward with a Lisfranc amputation of the right foot. At this point in time I rescrubbed and donned new sterile attire. New procedure was communicated with the operating staff and team and that family had given full verbal consent to proceed forward with a Lisfranc amputation of the Right foot. Additional local anesthetic was given about the ankle at this time consisting of 10 cc of a 1:1 mixture of 1% lidocaine plain and 0.5% Marcaine plain. From here attention was directed to the remaining digits of the forefoot which were sharply disarticulated at their corresponding metatarsophalangeal joints and sent to pathology for analysis. Next utilizing sharp dissection the remaining metatarsals were freed saving as much dorsal and plantar skin as possible for creation of a soft tissue flap and disarticulated at their corresponding tarsal joints next the site was flushed with copious amounts of normal sterile saline. At this point in time inspection of the remaining tarsal bones appeared healthy and hard indicating healthy viable bone. Next soft tissue was analyzed for adequate flap closure in which a large lateral defect would need to be closed. Thus the soft tissue underwent a swing flap/tissue rearrangement for adequate soft tissue closure. The soft tissue ends were noted to be adequate for alignment for an aesthetically pleasing skin flap for closure. Next the remaining bones and soft tissue flap were copiously irrigated with Irrisept. Next 1 g vancomycin powder was sprinkled throughout the soft tissue flap and remaining bones to prevent infection in the postoperative period. The subcutaneous tissues were reapproximated with a 2-0 Vicryl. The skin was then reapproximated utilizing a 2-0 Prolene. At this point in time the pneumatic ankle tourniquet was deflated and a prompt hyperemic response was noted to the distal stump of the right foot. A local anesthetic block was then performed about the ankle for postoperative pain control consisting of 10 cc of a 1:1 mixture of 1% lidocaine plain and 0.5% Marcaine plain. Next fluoroscopic images were obtained of the final Lisfranc amputation in multiple views. These images were reviewed prior to leaving the operating room. The surgical site was then dressed with Betadine soaked Adaptic, 4 x 4 gauze, Kerlix, 3 ABD padding, 4 inch Didier wrap and 6 inch Didier wrap. The patient tolerated the procedure and anesthesia well and was transported to PACU vital signs stable and vascular status intact to the distal right amputation stump/foot. Postoperative radiographs of the right foot were obtained in PACU and reviewed prior to leaving. Following surgery I discussed with family her postoperative instructions of strict nonweightbearing to the right lower extremity and elevation of the right leg at all times of rest. Discussed with them that this is essential for healing and survival of the skin flap. They voiced understanding of the postoperative instructions. She is scheduled for her postoperative visit in office next week. Visiting nursing orders have been placed and they will change dressings tomorrow. Grafts/Implants Used: 1 g vancomycin powder Complications None Admit VTE Documentation VTE Present on Admission: Yes VTE Mechan Device Prophylaxis: SCD's VTE Pharm Prophylaxis ordered?: No Reason prophylaxis not ordered:: Procedure Not Indicated
[2022-03-21 20:31] LABS: Bedside Glucose 155 mg/dL (74-106)
--- NOTE | 2022-03-21 21:42 | PCM.HP.STD ---
HPI - General General Date of Admission: 03/21/22 Date of Service: 03/21/22 Chief Complaint: Post-operative weakness and inability to remain nonweightbearing to right lower extremity HPI Narrative LUC HODGES, is a 76 F who presents to [facility] on 03/21/2022 for surgical intervention for partial fourth ray resection and debridement of all necrotic tissue of the right foot. During operation was encountered that extensive tissue damage secondary to her gangrene was noted in which exposed bone without soft tissue coverage would remain if procedure was carried out to plan. It was discussed with family performing a more proximal amputation of the right foot, a Lisfranc amputation in order to salvage her limb giving her the best chance for a stable plantigrade foot for propulsion once healed. Family was in agreement with this new surgical plan. A Lisfranc amputation was then performed to the right foot along with a swing flap/tissue rearrangement for adequate closure of the right foot. Patient tolerated the procedure and anesthesia well and was planned for discharge home. Patient and family were unable to aid in her care postoperatively and maintaining her nonweightbearing status as well as difficulty with strength to aid in standing and transitions following the procedure. It was felt that patient would do best with being admitted to remain compliant in her postoperative care in addition to seeking transfer to transitional care facility/rehab unit to build strength prior to discharge home. [facility] Medical History (Updated 03/21/22 @ 20:[address] Elie Zuñiga, DPM) Cardiology follow-up encounter Chronic ulcer of great toe of right foot with necrosis of muscle CKD stage 2 due to type 2 diabetes mellitus Delayed wound healing Diabetes Diabetes mellitus with diabetic polyneuropathy Diabetic ulcer of left foot with fat layer exposed Dietary restriction History of amputation of toe History of stress test Hyperglycemia due to type 2 diabetes mellitus Hypertension Incomplete left bundle branch block Insulin dependent diabetes mellitus Lesion of lumbar spine Low iron Non-smoker Normocytic anemia Redness of skin Spinal stenosis, lumbar SVT (supraventricular tachycardia) Type 2 diabetes mellitus Type 2 diabetes mellitus with foot ulcer Ulcer of right foot with fat layer exposed Vitreous hemorrhage of left eye Wears dentures Wears glasses Home Medications acetaminophen 325 mg tablet (Tylenol) 650 mg PO Q6H PRN PRN Pain 1-10 Or Fever #0 tabs 11/13/21 [Rx Last Taken Unknown] ascorbic acid (vitamin C) 500 mg tablet (Vitamin C) 500 mg PO DAILY SUPPLEMENT 01/13/22 [History Last Taken 01/27/22] garlic 100 mg tablet 10 mg PO DAILY SUPPLEMENT 01/28/22 [History Last Taken 01/27/22] lisinopril 10 mg tablet 10 mg PO DAILY BP 01/28/22 [History Last Taken 03/21/22] metformin 1,000 mg tablet 1,000 mg PO BID BLOOD SUGAR 01/28/22 [History Last Taken 02/19/22] multivitamin 1 tab PO DAILY SUPPLEMENT 01/28/22 [History Last Taken 01/27/22] propranolol 80 mg capsule,24 hr,extended release 80 mg PO DAILY 01/28/22 [History Last Taken 03/21/22] atorvastatin 80 mg tablet 80 mg PO DAILY #30 tabs 02/11/22 [Rx Last Taken Unknown] MedVance hydrocolloid thin dressing #1 ea 03/05/22 [Rx Last Taken Unknown] clopidogrel 75 mg tablet (Plavix) 75 mg PO DAILY #90 tabs 03/05/22 [Rx Last Taken 03/19/22] ferrous sulfate 325 mg (65 mg iron) tablet 325 mg PO DAILY ANEMIA #90 tabs 03/05/22 [Rx Last Taken Unknown] amlodipine 5 mg tablet 5 mg PO DAILY 03/14/22 [History Last Taken 03/21/22] aspirin 81 mg capsule 81 mg PO DAILY 03/14/22 [History Last Taken Unknown] insulin glargine 100 unit/mL (3 mL) subcutaneous pen (Basaglar KwikPen U-100 Insulin) 22 unit subcut BID 03/14/22 [History Last Taken Unknown] tramadol 50 mg tablet 50 mg PO Q6H PRN pain 7 days #28 tabs 03/21/22 [Rx Last Taken Unknown] Allergy/AdvReac Type Severity Reaction Status Date / Time oxycodone Allergy Other Verified 03/21/22 10:50 Family History Sister Diabetes Hypertension Father Hypertension Mother Cancer Surgical History (Updated 03/21/22 @ 21:[address] Elie Zuñiga DPM) History of adenoidectomy History of cholecystectomy History of eye surgery History of tonsillectomy Hx of foot operation Social History Smoking Status: Never smoker alcohol intake: never substance use type: does not use what type of physical activity do you participate in: none ROS Constitutional Constitutional: Denies body ache(s), chills, fatigue or fever(s) Eyes Eyes: Denies blurry vision, burning or double vision ENT HEENT: Denies dysphagia, nasal congestion, nasal discharge or sore throat Cardiovascular Cardiovascular: Denies chest pain, claudication, cold extremities or palpitations Respiratory/Chest Respiratory/Chest: Denies chest congestion, cough or hemoptysis Gastrointestinal Gastrointestinal: Denies constipation, diarrhea, hematemesis, hematochezia, nausea or vomiting Genitourinary Genitourinary: Denies hematuria, urinary frequency, urinary hesitancy or urinary urgency Musculoskeletal Musculoskeletal: Denies joint pain, joint stiffness or joint swelling Integumentary Integumentary: Denies lesions, pruritus or rash Neurologic Neurologic: Denies numbness, seizures or tingling Psychiatric Psychiatric: Denies anxiety or depression Endocrine Endocrinology: Denies polydipsia, polyphagia or polyuria Allergic/Immunologic Allergic/Immunologic: Denies urticaria or asthma Vital Signs Vital Signs Vital Signs: 03/21/22 10:46 03/21/22 10:46 Temperature 97.0 F L Temperature Source Temporal Pulse Rate 72 Respiratory Rate 18 Respiratory Pattern Normal Blood Pressure 116/57 L Blood Pressure Mean 76 Blood Pressure Source Monitor Blood Pressure Position Semi-Fowlers Blood Pressure Location Left Arm Pulse Ox 100 Oxygen Delivery Method Room Air Weight Weight: 95 kg Body Mass Index (BMI) 37.0 Physical Exam Const alert, oriented x3, no apparent distress and well nourished General Appearance: cooperative HEENT normocephalic Eyes General Eye: normal appearance of both eyes Neck General: normal visual inspection Lymph Lymphatic: no lymphadenopathy noted and no lymphedema noted Resp normal respiratory effort Cardio regular rate and regular rhythm Extremity normal capillary refill, no joint enlargement, no calf tenderness and no pedal edema Extremity Narrative: Right lower extremity strong computation noted with intact sutures. Postsurgical dressing is intact. Skin no rashes or lesions noted, skin turgor normal and no jaundice Neuro moves all extremities Results Lab / Micro Data Labs: Laboratory Results - last 24 hr 03/21/22 10:57: POC Glucose 178 H 03/21/22 19:46: POC Glucose 155 H Assessment & Plan Assessment/Plan (1) History of Lisfranc amputation of right foot: (2) Osteomyelitis of right foot: (3) Atherosclerosis of [place] arteries of extremities with gangrene, right leg: (4) Type 2 diabetes mellitus with diabetic polyneuropathy: QUALIFIERS: Diabetes mellitus ocean transportation intermediary insulin use: without ocean transportation intermediary use Qualified Code(s): E11.42 - Type 2 diabetes mellitus with diabetic polyneuropathy (5) Obesity (BMI 30-39.9): (6) Other acute postprocedural pain: PLAN: Plan Patient was seen and evaluated following surgical intervention Patient had undergone Lisfranc amputation of the right foot. DOS 03/21/2022. Patient was noted to be weak with difficulty standing from seated position and maintaining balance for compliance in her nonweightbearing status to the right lower extremity. Family felt that maintaining postoperative care and ensuring compliance of elevating of the lower extremity as well as maintaining her nonweightbearing status to the right lower extremity would be very difficult and felt best if she was admitted for observation and to maintain compliance with her postoperative instructions to prevent disruption of the surgical site, future infection, and a more proximal amputation below the level of the knee. During surgical intervention it is noted that an adequate soft tissue coverage would be maintained without Lisfranc amputation. Following performing of the Lisfranc amputation it was necessary to undergo a swing flap/tissue rearrangement for adequate closure of the right foot as there was a large lateral defect secondary to her previous diabetic ulceration/tissue necrosis/dry gangrene of the right foot. Surgical intervention was successful in creating adequate soft tissue coverage with closure of the distal amputation stump. Prior to closure site was irrigated copiously with normal sterile saline, Irrisept, and 1 g of vancomycin powder was placed over the remaining healthy tissue and bone prior to closure. Site was dressed with Betadine soaked Adaptic, 4 x 4 gauze, Kerlix, 3 ABD padding, 4 inch and 6 inch Didier wrap rolled onto the right foot. The patient had tolerated the anesthesia and procedure well and has vascular status intact to the distal stump of the right foot. All tissue post operative status is noted to be healthy appearing. Medicine team has been consulted for aid in medical management given patient's multiple comorbidities. Their management in this patient is greatly appreciated Social work has been consulted for seeking approval to the transitional care unit for rehabilitation prior to being discharged home I will continue to follow for postoperative management while in-house. Please do not hesitate to call for any questions or concerns Jr. Konstantin GuerreroP.M. [facility] [phone] Note: [employer] speech recognition nail puller software was used to create portions of this document. Sound-alike and misspelled words, as well as other nail puller errors may be contained in the documentation.
--- NOTE | 2022-03-21 23:37 | PN_ITS ---
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 Patient complains of no other symptoms. Per family patient could not ambulate to the bathroom after surgery; and there is concern about how she can use the commode when she goes home. Family is hoping that the larger family will meet and chart a path forward while the patient is at the Hospital.. Physical Exam Narrative Physical exam: General: Well-nourished, well-developed. Head: Normocephalic, atraumatic, no tenderness Eyes: Vision is grossly intact. EOMI ENT, no trauma, moist mucous membranes, no rhinorrhea Neck: Nontender, No thyromegaly. CVS: Regular rate and rhythm. S1-S2 present. No murmur, gallop or rub. Respiratory : clear to auscultation bilaterally, chest wall nontender, no wheezing Abdomen: Soft, nontender, nondistended, normal bowel sounds, no masses : Deferred Back: Nontender, no CVA tenderness, no midline spinal tenderness, deformities, step-offs Extremities: Right foot in Didier wrap. Left foot with no edema. Skin: Normal color, no trauma, abrasions Neuro: Alert, oriented, cranial nerves II through XII grossly intact. Psychiatry: Normal mood. Normal affect. Not depressed. Not anxious. Assessment & Plan Assessment/Plan (1) History of Lisfranc amputation of right foot: (2) Type 2 diabetes mellitus with diabetic polyneuropathy: QUALIFIERS: Diabetes mellitus pre billing specialist insulin use: without correction use Qualified Code(s): E11.42 - Type 2 diabetes mellitus with diabetic polyneuropathy (3) Obesity (BMI 30-39.9): (4) Benign essential tremor: PLAN: Plan History of Lisfranc amputation of right foot/debility Management by primary. Social work consult by podiatry. PT and OT consult. Type 2 diabetes mellitus with diabetic polyneuropathy Blood glucose is now within goal. On ADA diet. Home long-acting insulin and metformin continue. Accu-Chek with correction scale insulin ordered. Benign essential tremor Stable Propranolol continued. History of peripheral artery disease Not improving. Contributory to necrosis of toes leading to Lisfranc amputation of right foot. Aspirin and Plavix continued. Morbid obesity BMI of 37.1 with comorbidities. Complicates care. Lifestyle modification recommended. DVT prophylaxis: SCDs ordered. Visit Charges Inpatient E&M: 29996 Subs Hosp L2
[2022-03-22 00:35] LABS: Bedside Glucose 346 mg/dL (74-106)
[2022-03-22 01:24] VITALS: BP 139/54; PULSE 81; RESP 18; TEMP 37.5; O2SAT 95
[2022-03-22] MEDS: Acetaminophen 325 MG Tablet 650 MG PO ×3 (01:31→15:20)
[2022-03-22] MEDS: metFORMIN HCl 1,000 MG Tablet 1000 MG PO ×3 (01:31→16:57)
[2022-03-22] MEDS: Insulin Glargine-YFGN 100 UNIT/ML Pen 22 UNIT SC ×3 (01:31→21:00)
[2022-03-22] MEDS: 0.9% Normal Saline 1,000 ML 80 ML IV ×2 (01:32→10:52)
[2022-03-22 05:41] VITALS: BP 116/44; PULSE 83; RESP 18; TEMP 37.9; O2SAT 94
[2022-03-22] MEDS: traMADol 50 MG Tablet PO ×3 (05:44→20:48)
[2022-03-22] MEDS: Insulin Lispro 100 UNIT/ML INSULN.PEN SC ×4 (05:49→20:59)
[2022-03-22 07:25] LABS: Bedside Glucose 335 mg/dL (74-106)
[2022-03-22 07:53] LABS: Absolute Lymphocyte Count 2.36 X10^3/uL (0.83-4.51); Absolute Neutrophil Count 8.5 X10^3/uL (2.0-7.7); Basophil# 0.05 X10^3/uL; Basophil% 0.4 % (0-1); Eosinophil# 0.15 X10^3/uL; Eosinophils% 1.2 % (0-5); Hematocrit 27.6 % (37-47); Hemoglobin 8.7 g/dL (12.0-15.0); Lymphocyte # 2.36 X10^3/ul (0.83-4.51); Lymphocyte % 19.3 % (19-41); Mean Corp Hgb Conc 31.5 g/dL (32-36); Mean Corpuscular Hgb 27.9 pg (27.0-32.0); Mean Corpuscular Volume 88.5 fL (81-99); Mean Platelet Vol. 11.4 fl (6.2-12.0); NRBC Flagged by Analyzer 0.2 % (0-5); Neutrophil # 8.49 X10^3/uL (2.7-7.7); Neutrophil % 69.6 % (47-70); Platelet Count 393 K/mm3 (150-450); RBC Distribution Width CV 16.6 % (11.6-14.6); RBC Distribution Width SD 53.6 fl (35.1-43.9); Red Blood Count 3.12 M/mm3 (4.2-5.4); White Blood Count 12.2 K/mm3 (4.4-11.0)
[2022-03-22] MEDS: Aspirin 81 MG TAB.CHEW PO (07:59)
[2022-03-22] MEDS: Ferrous Sulfate 325 MG Tablet PO ×2 (08:00)
[2022-03-22] MEDS: Multivitamins,Therapeutic Tablet 1 TABLET PO (08:01)
[2022-03-22] MEDS: Glucerna Shake 120 ML LIQUID PO ×4 (08:01→20:54)
[2022-03-22] MEDS: Menthol/Lanolin/Calamine/Znox 113 GM Tube 1 APPLIC TOPICAL ×2 (08:01→20:49)
[2022-03-22] MEDS: Nystatin Powder 15gm Bottle 1 APPLIC TOPICAL ×2 (08:02→20:48)
[2022-03-22 08:21] LABS: Anion Gap 9 (5-15); BUN 17 mg/dL (7-18); Calcium,Total 8.6 mg/dL (8.5-10.1); Chloride 104 mmol/L (98-107); Creatinine, Serum 1.06 mg/dL (0.55-1.02); EST Glomerular Filtration Rate 54 mL/min (>60); Est Glom Filt Rate - Afr Amer 65 mL/min (>60); Estimated Creatinine Clearance 38.52 ml/min; Glucose 264 mg/dL (74-106); Potassium 4.1 mmol/L (3.5-5.1); Sodium Level 138 mmol/L (136-145)
[2022-03-22 09:49] VITALS: BP 109/60; PULSE 76; RESP 18; TEMP 37.2; O2SAT 95
[2022-03-22] MEDS: Propranolol LA 80 MG Capsule PO (10:50)
[2022-03-22] MEDS: amLODIPine 5 MG Tablet PO (10:52)
[2022-03-22] MEDS: Clopidogrel Bisulfate 75 MG Tablet PO (10:52)
[2022-03-22] MEDS: Lisinopril 10 MG Tablet PO (10:52)
[2022-03-22] MEDS: Ascorbic Acid 500 MG Tablet PO (10:52)
--- NOTE | 2022-03-22 11:00 | CASEMGMT ---
RN CM Face to Face with patient for initial transition planning/care coordination assessment. RN CM introduced self and role at [facility]. Patient lying in bed, alert and oriented, daughter at bedside. Patient willing to participate in assessment and is able to answer all questions appropriately. Care providers, pharmacy, and demographics verified. Patient wishes to discharge to SNF at discharge. A list of SNF providers including quality and resource use data and consistent with the patient?s preferred geographical region, medical needs, and insurance network were provided from the CarePort Guide. Family to review and provide preferences. Patient states he has no further needs or concerns at this time. SW updated. CM to follow for discharge planning needs that may arise. PCP: Fausto Specialists: Yogesh ships equipment engineer; Sheridan Lopez Preferred Pharmacy: [facility]; [facility] Retail at discharge. Insurance: [employer] Prescription Benefit: none Living Will/HPOA: none LNOK: , daughters, son Living Arrangements: Patient lives with (who has dementia), 2 daughters, and son in a 2 story home with bed and bath on first floor. Daughters assist patient with ADLs. Transportation: Driving service. DME/HHC: Patient has shower chair, BSC, crutches, grab bars, walker, wheelchair at home. Patient is active with [facility]. Disposition Plan: SNF pending acceptance. Jes MARTINEZ, RN, CM
[2022-03-22 11:55] LABS: Bedside Glucose 306 mg/dL (74-106)
[2022-03-22 14:45] VITALS: BP 120/59; PULSE 78; RESP 18; TEMP 36.7; O2SAT 95
--- NOTE | 2022-03-22 15:16 | CASEMGMT ---
SWATI met with patient and her son and son's . Patient's son said that the discharge plan is for patient is for her to go to SNF for a 1 week and then home with home health. Patient's family said that they have [facility] Home [facility] Currently. Per family patient's first choice is [facility] in [place] and second choice is [facility]. SWATI opened careport chart for patient and referred patient to [facility] and [facility]. Unique HOFF
--- NOTE | 2022-03-22 16:12 | PN.HOSP_ITS ---
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 She is hoping to go to the [facility] in [place] Objective Data Objective Data Vital Signs: Vital Signs Temp Pulse Resp BP Pulse Ox O2 Del Method 98.1 F 78 18 120/59 L 95 Room Air 03/22/22 14:45 03/22/22 14:45 03/22/22 14:45 03/22/22 14:45 03/22/22 14:45 03/22/22 14:45 Oxygen Delivery Method Room Air Weight: 95 kg Body Mass Index (BMI) 37.0 Intake & Output: Intake and Output for Last 24 Hours 03/20/22 03/21/22 03/22/22 23:59 23:59 23:59 Intake Total 1110 / 1110 1946.67 / 1946.67 Output Total 275 / 275 1550 / 1550 Balance 835 / 835 396.67 / 396.67 Lab / Micro Data Result Diagrams: 03/22/22 07:20 03/22/22 07:20 Labs: Laboratory Results - last 24 hr 03/21/22 19:46: POC Glucose 155 H 03/22/22 00:04: POC Glucose 346 H 03/22/22 05:48: POC Glucose 335 H 03/22/22 07:20: WBC 12.2 H, RBC 3.12 L, Hgb 8.7 L, Hct 27.6 L, MCV 88.5, MCH 27.9, MCHC 31.5 L, RDW Std Deviation 53.6 H, RDW Coeff of Beyt 16.6 H, Plt Count 393, MPV 11.4, Immature Gran % (Auto) 0.500, Neut % (Auto) 69.6, Lymph % (Auto) 19.3, Harney % (Auto) 9.0, Eos % (Auto) 1.2, Baso % (Auto) 0.4, Absolute Neuts (auto) 8.5 H, Absolute Lymphs (auto) 2.36, Nucleated RBC % 0.2 03/22/22 07:20: Sodium 138, Potassium 4.1, Chloride 104, Carbon Dioxide 25.0, Anion Gap 9, BUN 17, Creatinine 1.06 H, Estim Creat Clear Calc 38.52, Est GFR (MDRD) Af Amer 65, Est GFR (MDRD) Non-Af 54 L, BUN/Creatinine Ratio 16.0, Glucose 264 H, Calcium 8.6 03/22/22 11:25: POC Glucose 306 H Micro: Microbiology 03/21/22 19:00 Tissue - Right Foot Gram Stain - Final 03/21/22 19:00 Tissue - Right Foot Wound Culture - Preliminary Gram negative dorys 03/21/22 19:00 Bone - 4th Metatarsal Bone Gram Stain - Final 03/21/22 19:00 Bone - 4th Metatarsal Bone Wound Culture - Preliminary Gram negative dorys Radiography Diagnostic Testing: Radiology Impression Foot X-Ray 03/21/22 15:00 IMPRESSION: Intraoperative images demonstrate transmetatarsal amputation of the right foot. Electronically Signed: Julian Suero DO at 23:01 EST Reading Location ID and State: [facility] / [place] Tel [phone], Service support , Foot X-Ray 03/21/22 19:40 IMPRESSION: Status post amputation of the forefoot. Electronically Signed: Julian Suero DO at 23:06 EST Reading Location ID and State: [facility] [facility] / [place] Tel [phone], Service support , Physical Exam Const alert, oriented x3, no apparent distress and healthy appearing General Appearance: cooperative, well kempt and well developed Orientation / Consciousness: awake, oriented to person, oriented to place and oriented to time HEENT normocephalic, head/scalp atraumatic and moist oral mucous membranes Eyes PERRL, EOMs intact bilaterally and conjunctivae normal Neck supple, no JVD and thyroid normal General: trachea midline Resp normal respiratory effort, no retractions, no use of accessory muscles and clear to auscultation bilaterally Auscultation: Negative for rales, rhonchi or wheezes Cardio regular rate, regular rhythm, S1 normal heart sound, S2 normal heart sound, no murmurs, no rub and no gallops GI normal to inspection, nondistended, normoactive bowel sounds, soft to palpation, non-tender and non-distended Neuro oriented x3, CN's II-XII intact bilaterally, no focal motor deficits and no sensory deficits noted Sensorium / Orientation: awake and alert Speech: speech normal Psych affect normal Assessment & Plan Assessment/Plan (1) Non-pressure chronic ulcer of other part of right foot with fat layer exposed: PLAN: Plan 1. Type 2 diabetes-continue to monitor blood sugars, sliding scale insulin will be used if needed #2 neuropathy secondary to type 2 diabetes-complicates care, medical course, recovery, and prognosis #3 essential hypertension-patient remain on her present medications #4 peripheral vascular disease secondary to type 2 diabetes-continue Plavix #5 hyperlipidemia-patient is on a statin #6 status post Lisfranc amputation of right foot postop day #1-continue PT and OT, patient will need short-term shelter placement Total clinical time spent by myself addressing patient's medical issues, reviewing all of her data, and collaborating with patient's care team: 36 minutes Charges/Coding Visit Charges Inpatient E&M: 57155 Subs Hosp L2
[2022-03-22 17:30] LABS: Bedside Glucose 275 mg/dL (74-106)
[2022-03-22 20:46] VITALS: BP 102/45; PULSE 72; RESP 18; TEMP 37.5; O2SAT 95
[2022-03-22] MEDS: Atorvastatin Calcium 80 MG Tablet PO (20:55)
[2022-03-22 21:55] LABS: Bedside Glucose 167 mg/dL (74-106)
[2022-03-23 03:44] VITALS: BP 102/36; PULSE 80; RESP 20; TEMP 37.5; O2SAT 92
[2022-03-23] MEDS: Acetaminophen 325 MG Tablet 650 MG PO ×2 (03:54→12:45)
[2022-03-23] MEDS: 0.9% Normal Saline 1,000 ML 80 ML IV ×2 (06:43→12:55)
[2022-03-23] MEDS: traMADol 50 MG Tablet PO ×3 (06:45→18:19)
[2022-03-23 07:11] LABS: Bedside Glucose 97 mg/dL (74-106)
[2022-03-23] MEDS: metFORMIN HCl 1,000 MG Tablet 1000 MG PO ×2 (08:58→17:19)
[2022-03-23] MEDS: Multivitamins,Therapeutic Tablet 1 TABLET PO (08:58)
[2022-03-23] MEDS: Aspirin 81 MG TAB.CHEW PO (08:58)
[2022-03-23] MEDS: Menthol/Lanolin/Calamine/Znox 113 GM Tube 1 APPLIC TOPICAL ×2 (08:59→21:04)
[2022-03-23] MEDS: Glucerna Shake 120 ML LIQUID PO ×3 (08:59→17:19)
[2022-03-23] MEDS: Propranolol LA 80 MG Capsule PO (09:00)
[2022-03-23] MEDS: Nystatin Powder 15gm Bottle 1 APPLIC TOPICAL ×2 (09:00→21:04)
[2022-03-23] MEDS: amLODIPine 5 MG Tablet PO (09:01)
[2022-03-23] MEDS: Clopidogrel Bisulfate 75 MG Tablet PO (09:01)
[2022-03-23] MEDS: Lisinopril 10 MG Tablet PO (09:01)
[2022-03-23] MEDS: Ascorbic Acid 500 MG Tablet PO (09:01)
[2022-03-23 09:19] VITALS: BP 109/57; PULSE 78; RESP 18; TEMP 36.6; O2SAT 97
[2022-03-23 09:21] VITALS: PULSE 70
--- NOTE | 2022-03-23 11:33 | PN.HOSP_ITS ---
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 Objective Data Objective Data Vital Signs: Vital Signs Temp Pulse Resp BP Pulse Ox O2 Del Method 97.9 F 70 18 109/57 L 97 Room Air 03/23/22 09:19 03/23/22 09:21 03/23/22 09:19 03/23/22 09:19 03/23/22 09:19 03/23/22 09:19 Oxygen Delivery Method Room Air Weight: 95 kg Body Mass Index (BMI) 37.0 Intake & Output: Intake and Output for Last 24 Hours 03/21/22 03/22/22 03/23/22 23:59 23:59 23:59 Intake Total 1110 / 1110 3796.67 / 3796.67 Output Total 275 / 275 1850 / 1850 Balance 835 / 835 1946.67 / 1946.67 Lab / Micro Data Result Diagrams: 03/22/22 07:20 03/22/22 07:20 Labs: Laboratory Results - last 24 hr 03/22/22 11:25: POC Glucose 306 H 03/22/22 16:52: POC Glucose 275 H 03/22/22 20:57: POC Glucose 167 H 03/23/22 06:41: POC Glucose 97 Micro: Microbiology 03/21/22 19:00 Bone - 4th Metatarsal Bone Gram Stain - Final 03/21/22 19:00 Bone - 4th Metatarsal Bone Wound Culture - Preliminary GNR Poss Pseudomonas sp Proteus sp. 03/21/22 19:00 Tissue - Right Foot Gram Stain - Final 03/21/22 19:00 Tissue - Right Foot Wound Culture - Preliminary Pseudomonas aeroginosa Proteus sp. Physical Exam Narrative alert, oriented x3, no apparent distress and healthy appearing General Appearance: cooperative, well kempt and well developed Orientation / Consciousness: awake, oriented to person, oriented to place and oriented to time HEENT normocephalic, head/scalp atraumatic and moist oral mucous membranes Eyes PERRL, EOMs intact bilaterally and conjunctivae normal Neck supple, no JVD and thyroid normal General: trachea midline Resp normal respiratory effort, no retractions, no use of accessory muscles and clear to auscultation bilaterally Auscultation: Negative for rales, rhonchi or wheezes Cardio regular rate, regular rhythm, S1 normal heart sound, S2 normal heart sound, no murmurs, no rub and no gallops GI normal to inspection, nondistended, normoactive bowel sounds, soft to palpation, non-tender and non-distended Neuro oriented x3, CN's II-XII intact bilaterally, no focal motor deficits and no sensory deficits noted Sensorium / Orientation: awake and alert Speech: speech normal Psych affect normal Assessment & Plan Assessment/Plan (1) History of Lisfranc amputation of right foot: (2) Non-pressure chronic ulcer of other part of right foot with fat layer exposed: PLAN: Plan 1. Type 2 diabetes-continue to monitor blood sugars, sliding scale insulin will be used if needed #2 neuropathy secondary to type 2 diabetes-complicates care, medical course, recovery, and prognosis #3 essential hypertension-patient remain on her present medications #4 peripheral vascular disease secondary to type 2 diabetes-continue Plavix #5 hyperlipidemia-patient is on a statin #6 status post Lisfranc amputation of right foot postop day #2-continue PT and OT, patient will need short-term [place] [facility] placement Total clinical time spent by myself addressing patient's medical issues, reviewing all of her data, and collaborating with patient's care team: 35 minutes Charges/Coding Visit Charges Inpatient E&M: 59102 Subs Hosp L2
[2022-03-23 12:15] LABS: Bedside Glucose 136 mg/dL (74-106)
--- NOTE | 2022-03-23 13:45 | PCM.PROGNOTE ---
Subjective Subjective Patient seen sitting in bed resting with family present. She denies any constitutional symptoms. Does admit to some occasional right foot pain. Denies any further complaints. Family states that she will be going to a skilled facility soon for care and rehabilitation postsurgical intervention. Objective Data Objective Data Vital Signs: Vital Signs Temp Pulse Resp BP Pulse Ox O2 Del Method 97.9 F 70 18 109/57 L 97 Room Air 03/23/22 09:19 03/23/22 09:21 03/23/22 09:19 03/23/22 09:19 03/23/22 09:19 03/23/22 09:19 Oxygen Delivery Method Room Air Weight: 95 kg Body Mass Index (BMI) 37.0 Intake & Output: Intake and Output for Last 24 Hours 03/21/22 03/22/22 03/23/22 23:59 23:59 23:59 Intake Total 1110 / 1110 3796.67 / 3796.67 496 / 496 Output Total 275 / 275 1850 / 1850 Balance 835 / 835 1946.67 / 1946.67 496 / 496 Lab / Micro Data Result Diagrams: 03/22/22 07:20 03/22/22 07:20 Labs: Laboratory Results - last 24 hr 03/22/22 16:52: POC Glucose 275 H 03/22/22 20:57: POC Glucose 167 H 03/23/22 06:41: POC Glucose 97 03/23/22 11:30: POC Glucose 136 H Micro: Microbiology 03/21/22 19:00 Bone - 4th Metatarsal Bone Gram Stain - Final 03/21/22 19:00 Bone - 4th Metatarsal Bone Wound Culture - Preliminary GNR Poss Pseudomonas sp Proteus sp. 03/21/22 19:00 Tissue - Right Foot Gram Stain - Final 03/21/22 19:00 Tissue - Right Foot Wound Culture - Preliminary Pseudomonas aeroginosa Proteus sp. Physical Exam Const alert, oriented x3, no apparent distress and well nourished General Appearance: cooperative HEENT normocephalic Eyes General Eye: normal appearance of both eyes Neck General: normal visual inspection Lymph Lymphatic: no lymphadenopathy noted and no lymphedema noted Resp normal respiratory effort Cardio regular rate and regular rhythm Extremity normal capillary refill, no joint enlargement, no calf tenderness and no pedal edema Extremity Narrative: Right lower extremity Lisfranc amputation noted with intact sutures. Distal stump appears healthy and well perfused. No signs of infection Skin no rashes or lesions noted, skin turgor normal and no jaundice Neuro moves all extremities Assessment & Plan Assessment/Plan (1) History of Lisfranc amputation of right foot: (2) Osteomyelitis of right foot: (3) Atherosclerosis of [place] arteries of extremities with gangrene, right leg: (4) Type 2 diabetes mellitus with diabetic polyneuropathy: QUALIFIERS: Diabetes mellitus senior living insulin use: without terminal system operator use Qualified Code(s): E11.42 - Type 2 diabetes mellitus with diabetic polyneuropathy (5) Obesity (BMI 30-39.9): (6) Other acute postprocedural pain: PLAN: Plan Patient was seen and evaluated Patient had undergone Lisfranc amputation of the right foot. DOS 03/21/2022. POD #2 Patient was noted to be weak with difficulty standing from seated position and maintaining balance for compliance in her nonweightbearing status to the right lower extremity. Family felt that maintaining postoperative care and ensuring compliance of elevating of the lower extremity as well as maintaining her nonweightbearing status to the right lower extremity would be very difficult and felt best if she was admitted for observation and to maintain compliance with her postoperative instructions to prevent disruption of the surgical site, future infection, and a more proximal amputation below the level of the knee. Surgery 03/21/22: During surgical intervention it is noted that an adequate soft tissue coverage would be maintained without Lisfranc amputation. Following performing of the Lisfranc amputation it was necessary to undergo a swing flap/tissue rearrangement for adequate closure of the right foot as there was a large lateral defect secondary to her previous diabetic ulceration/tissue necrosis/dry gangrene of the right foot. Surgical intervention was successful in creating adequate soft tissue coverage with closure of the distal amputation stump. Prior to closure site was irrigated copiously with normal sterile saline, Irrisept, and 1 g of vancomycin powder was placed over the remaining healthy tissue and bone prior to closure. Site was dressed with Betadine soaked Adaptic, 4 x 4 gauze, Kerlix, 3 ABD padding, 4 inch and 6 inch Didier wrap rolled onto the right foot. The patient had tolerated the anesthesia and procedure well and has vascular status intact to the distal stump of the right foot. All tissue and bone post operative status is noted to be healthy appearing. Cultures: Cultures obtained at time of surgery for both tissue and bone of the fourth metatarsal which demonstrates PsA and Proteus. Due to these positive cultures ID will be consulted for recommendation of antibiotic. Today dressings were taken down and the distal amputation stump of the right foot is noted to have intact sutures with no signs of infection. There is adequate perfusion noted to the distal stump at her Lisfranc amputation site. Skin flap appears healthy in coloration with adequate perfusion. Dressings changed today consisting of Betadine soaked Adaptic, 4 x 4 gauze, ABD x2, Kerlix, 4 inch Didier and 6 inch Didier rolled onto the foot. Medicine team has been consulted for aid in medical management given patient's multiple comorbidities. Their management in this patient is greatly appreciated Social work has been consulted for seeking approval to the transitional care unit for rehabilitation prior to being discharged home. Patient looking to go to [facility] in [place] for rehabilitation and compliance with postoperative instructions. I will continue to follow for postoperative management while in-house. Please do not hesitate to call for any questions or concerns Elie Zuñiga Jr. D.P.M. [facility] [phone] Note: [employer] speech recognition mathematics academic chair software was used to create portions of this document. Sound-alike and misspelled words, as well as other mathematics academic chair errors may be contained in the documentation.
[2022-03-23] MEDS: Insulin Lispro 100 UNIT/ML INSULN.PEN SC ×2 (17:10→21:10)
[2022-03-23 17:31] LABS: Bedside Glucose 243 mg/dL (74-106)
[2022-03-23 20:46] VITALS: BP 103/50; PULSE 79; RESP 18; TEMP 37.9; O2SAT 92
[2022-03-23] MEDS: 0.9% Saline Lock 10 ML Syringe IV (21:03)
[2022-03-23] MEDS: Atorvastatin Calcium 80 MG Tablet PO (21:05)
[2022-03-23] MEDS: Insulin Glargine-YFGN 100 UNIT/ML Pen 15 UNIT SC (21:11)
[2022-03-23 23:26] LABS: Bedside Glucose 262 mg/dL (74-106)
[2022-03-24] VITALS (7 sets, daily range): BP systolic 93–123; BP diastolic 40–58; PULSE 75–86; RESP 18; TEMP 37.2–38.1; O2SAT 90–98
[2022-03-24] MEDS: Insulin Lispro 100 UNIT/ML INSULN.PEN SC ×4 (06:51→20:29)
[2022-03-24 07:25] LABS: Bedside Glucose 194 mg/dL (74-106)
[2022-03-24] MEDS: Ferrous Sulfate 325 MG Tablet PO (08:00)
[2022-03-24] MEDS: Aspirin 81 MG TAB.CHEW PO (08:00)
[2022-03-24] MEDS: metFORMIN HCl 1,000 MG Tablet 1000 MG PO ×2 (08:00→16:12)
[2022-03-24] MEDS: Multivitamins,Therapeutic Tablet 1 TABLET PO (08:55)
[2022-03-24] MEDS: Menthol/Lanolin/Calamine/Znox 113 GM Tube 1 APPLIC TOPICAL ×2 (10:32→20:20)
[2022-03-24] MEDS: Glucerna Shake 120 ML LIQUID PO ×2 (10:32→20:22)
[2022-03-24] MEDS: Lisinopril 10 MG Tablet PO (10:33)
[2022-03-24] MEDS: Ascorbic Acid 500 MG Tablet PO (10:33)
[2022-03-24] MEDS: Nystatin Powder 15gm Bottle 1 APPLIC TOPICAL ×2 (10:33→20:20)
[2022-03-24] MEDS: Insulin Glargine-YFGN 100 UNIT/ML Pen 15 UNIT SC ×2 (10:33→20:30)
[2022-03-24] MEDS: Propranolol LA 80 MG Capsule PO (10:33)
[2022-03-24] MEDS: amLODIPine 5 MG Tablet PO (10:33)
[2022-03-24] MEDS: Clopidogrel Bisulfate 75 MG Tablet PO (10:33)
[2022-03-24] MEDS: traMADol 50 MG Tablet PO (10:41)
[2022-03-24 12:05] LABS: Bedside Glucose 233 mg/dL (74-106)
--- NOTE | 2022-03-24 15:19 | CASEMGMT ---
Addendum entered by Ingris Dash 03/24/22 15:27: SW called [facility]. Jen stated team is still reviewing pt case. SW in to inform family of this. Pt and pt daughters stated if [facility] is unable to accept next choices would be [facility] or [facility], with no preference between the two. SW will send referral to next choices after determination from [facility], if needed. Original Note: Social Work SW called Leah at [facility] to follow up on referral. Leah informed unable to accept pt at this time. SW gave update to family and pt that [facility] is unable to accept as they have no beds. SW informed will wait for determination from [facility]. Family voiced understanding. PLAN: [facility], pending acceptance LUCERO Mendosa
[2022-03-24 16:35] LABS: Bedside Glucose 235 mg/dL (74-106)
--- NOTE | 2022-03-24 16:39 | CASEMGMT ---
FRANTZ ZIMMERMAN NOTE: BRE left w/Becca @ [facility] to notify her plan is SNF @ discharge. Slime MARTINEZ RN CM
--- NOTE | 2022-03-24 17:47 | PCM.PN.HOSP ---
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 Objective Data Objective Data Vital Signs: Vital Signs Temp Pulse Resp BP Pulse Ox O2 Del Method 98.9 F 86 18 123/58 H 98 Room Air 03/24/22 16:09 03/24/22 16:09 03/24/22 16:09 03/24/22 16:09 03/24/22 16:09 03/24/22 16:09 Oxygen Delivery Method Room Air Weight: 95 kg Body Mass Index (BMI) 37.0 Intake & Output: Intake and Output for Last 24 Hours 03/22/22 03/23/22 03/24/22 23:59 23:59 23:59 Intake Total 3796.67 / 3796.67 976 / 976 750 / 750 Output Total 1850 / 1850 500 / 500 Balance 1946.67 / 1946.67 976 / 976 250 / 250 Lab / Micro Data Result Diagrams: 03/22/22 07:20 03/22/22 07:20 Labs: Laboratory Results - last 24 hr 03/23/22 20:53: POC Glucose 262 H 03/24/22 06:49: POC Glucose 194 H 03/24/22 11:45: POC Glucose 233 H 03/24/22 16:06: POC Glucose 235 H Micro: Microbiology 03/21/22 19:00 Tissue - Right Foot Gram Stain - Final 03/21/22 19:00 Tissue - Right Foot Wound Culture - Preliminary Pseudomonas aeroginosa Proteus mirabilis Gram positive organism 03/21/22 19:00 Tissue - Right Foot Anaerobic Culture - Preliminary 03/21/22 19:00 Bone - 4th Metatarsal Bone Gram Stain - Final 03/21/22 19:00 Bone - 4th Metatarsal Bone Wound Culture - Preliminary Pseudomonas aeroginosa Proteus mirabilis Gram positive organism Physical Exam Narrative alert, oriented x3, no apparent distress and healthy appearing General Appearance: cooperative, well kempt and well developed Orientation / Consciousness: awake, oriented to person, oriented to place and oriented to time HEENT normocephalic, head/scalp atraumatic and moist oral mucous membranes Eyes PERRL, EOMs intact bilaterally and conjunctivae normal Neck supple, no JVD and thyroid normal General: trachea midline Resp normal respiratory effort, no retractions, no use of accessory muscles and clear to auscultation bilaterally Auscultation: Negative for rales, rhonchi or wheezes Cardio regular rate, regular rhythm, S1 normal heart sound, S2 normal heart sound, no murmurs, no rub and no gallops GI normal to inspection, nondistended, normoactive bowel sounds, soft to palpation, non-tender and non-distended Neuro oriented x3, CN's II-XII intact bilaterally, no focal motor deficits and no sensory deficits noted Sensorium / Orientation: awake and alert Speech: speech normal Psych affect normal Assessment & Plan Assessment/Plan (1) Osteomyelitis of right foot: (2) History of Lisfranc amputation of right foot: (3) Non-pressure chronic ulcer of other part of right foot with fat layer exposed: PLAN: Plan 1. Type 2 diabetes-continue to monitor blood sugars, sliding scale insulin will be used if needed #2 neuropathy secondary to type 2 diabetes-complicates care, medical course, recovery, and prognosis #3 essential hypertension-patient remain on her present medications #4 peripheral vascular disease secondary to type 2 diabetes-continue Plavix #5 hyperlipidemia-patient is on a statin #6 status post Lisfranc amputation of right foot postop day #3-continue PT and OT, patient will need short-term custodial placement Total clinical time spent by myself addressing patient's medical issues, reviewing all of her data, and collaborating with patient's care team: 36 minutes Charges/Coding Visit Charges Inpatient E&M: 51208 Subs Hosp L2
--- NOTE | 2022-03-24 17:54 | PCM.PROGNOTE ---
Subjective Subjective Patient seen sitting up in bed today with family present. She did sit in the chair earlier today with feet elevated for a few hours talking with family. Continuing to eat however small portions. Patient states she does not feel very hungry at the moment with dinner in front of her. She denies any constitutional symptoms today. She has no further complaints today. Objective Data Objective Data Vital Signs: Vital Signs Temp Pulse Resp BP Pulse Ox O2 Del Method 98.9 F 86 18 123/58 H 98 Room Air 03/24/22 16:09 03/24/22 16:09 03/24/22 16:09 03/24/22 16:09 03/24/22 16:09 03/24/22 16:09 Oxygen Delivery Method Room Air Weight: 95 kg Body Mass Index (BMI) 37.0 Intake & Output: Intake and Output for Last 24 Hours 03/22/22 03/23/22 03/24/22 23:59 23:59 23:59 Intake Total 3796.67 / 3796.67 976 / 976 750 / 750 Output Total 1850 / 1850 500 / 500 Balance 1946.67 / 1946.67 976 / 976 250 / 250 Lab / Micro Data Result Diagrams: 03/22/22 07:20 03/22/22 07:20 Labs: Laboratory Results - last 24 hr 03/23/22 20:53: POC Glucose 262 H 03/24/22 06:49: POC Glucose 194 H 03/24/22 11:45: POC Glucose 233 H 03/24/22 16:06: POC Glucose 235 H Micro: Microbiology 03/21/22 19:00 Tissue - Right Foot Gram Stain - Final 03/21/22 19:00 Tissue - Right Foot Wound Culture - Preliminary Pseudomonas aeroginosa Proteus mirabilis Gram positive organism 03/21/22 19:00 Tissue - Right Foot Anaerobic Culture - Preliminary 03/21/22 19:00 Bone - 4th Metatarsal Bone Gram Stain - Final 03/21/22 19:00 Bone - 4th Metatarsal Bone Wound Culture - Preliminary Pseudomonas aeroginosa Proteus mirabilis Gram positive organism Physical Exam Const alert, oriented x3, no apparent distress and well nourished General Appearance: cooperative HEENT normocephalic Eyes General Eye: normal appearance of both eyes Neck General: normal visual inspection Lymph Lymphatic: no lymphadenopathy noted and no lymphedema noted Resp normal respiratory effort Cardio regular rate and regular rhythm Extremity normal capillary refill, no joint enlargement, no calf tenderness and no pedal edema Extremity Narrative: Right lower extremity Lisfranc amputation noted with intact sutures. Distal stump appears healthy and well perfused. No signs of infection Skin no rashes or lesions noted, skin turgor normal and no jaundice Neuro moves all extremities Assessment & Plan Assessment/Plan (1) History of Lisfranc amputation of right foot: (2) Osteomyelitis of right foot: (3) Atherosclerosis of [place] arteries of extremities with gangrene, right leg: (4) Type 2 diabetes mellitus with diabetic polyneuropathy: QUALIFIERS: Diabetes mellitus termite treater helper insulin use: without penitentiary use Qualified Code(s): E11.42 - Type 2 diabetes mellitus with diabetic polyneuropathy (5) Obesity (BMI 30-39.9): (6) Other acute postprocedural pain: PLAN: Plan Patient was seen and evaluated Patient had undergone Lisfranc amputation of the right foot. DOS 03/21/2022. POD #3 Patient was noted to be weak with difficulty standing from seated position and maintaining balance for compliance in her nonweightbearing status to the right lower extremity. Family felt that maintaining postoperative care and ensuring compliance of elevating of the lower extremity as well as maintaining her nonweightbearing status to the right lower extremity would be very difficult and felt best if she was admitted for observation and to maintain compliance with her postoperative instructions to prevent disruption of the surgical site, future infection, and a more proximal amputation below the level of the knee. Surgery 03/21/22: During surgical intervention it is noted that an adequate soft tissue coverage would be maintained without Lisfranc amputation. Following performing of the Lisfranc amputation it was necessary to undergo a swing flap/tissue rearrangement for adequate closure of the right foot as there was a large lateral defect secondary to her previous diabetic ulceration/tissue necrosis/dry gangrene of the right foot. Surgical intervention was successful in creating adequate soft tissue coverage with closure of the distal amputation stump. Prior to closure site was irrigated copiously with normal sterile saline, Irrisept, and 1 g of vancomycin powder was placed over the remaining healthy tissue and bone prior to closure. Site was dressed with Betadine soaked Adaptic, 4 x 4 gauze, Kerlix, 3 ABD padding, 4 inch and 6 inch Didier wrap rolled onto the right foot. The patient had tolerated the anesthesia and procedure well and has vascular status intact to the distal stump of the right foot. All tissue and bone post operative status is noted to be healthy appearing. Cultures: Cultures obtained at time of surgery for both tissue and bone of the fourth metatarsal which demonstrates PsA and Proteus, and Gm pos organism. Due to these positive cultures ID consulted for recommendation of antibiotic. Today dressings were taken down and the distal amputation stump of the right foot is noted to have intact sutures with no signs of infection. There is adequate perfusion noted to the distal stump at her Lisfranc amputation site. Skin flap appears healthy in coloration with adequate perfusion. Dressings changed today consisting of Betadine soaked Adaptic, 4 x 4 gauze, ABD x2, Kerlix, 4 inch Didier and 6 inch Didier rolled onto the foot. Encouraged protein in diet with Pavel supplementation to aid healing. Also encouraged continued diabetic diet to maintain adequate control of sugars to aid healing. Medicine team has been consulted for aid in medical management given patient's multiple comorbidities. Their management in this patient is greatly appreciated Social work has been consulted for seeking approval to the transitional care unit for rehabilitation prior to being discharged home. Patient looking to go to skilled facility in [place] for rehabilitation and compliance with postoperative instructions. I will continue to follow for postoperative management while in-house. Please do not hesitate to call for any questions or concerns Jr. Fern Guerrero.P.M. [facility] [phone] Note: [employer] speech recognition certified recreational therapist software was used to create portions of this document. Sound-alike and misspelled words, as well as other certified recreational therapist errors may be contained in the documentation.
[2022-03-24] MEDS: Acetaminophen 325 MG Tablet 650 MG PO (20:10)
[2022-03-24] MEDS: Atorvastatin Calcium 80 MG Tablet PO (20:11)
[2022-03-24] MEDS: 0.9% Saline Lock 10 ML Syringe IV (20:32)
[2022-03-24 22:10] LABS: Bedside Glucose 163 mg/dL (74-106)
[2022-03-25 02:34] VITALS: BP 99/48; PULSE 76; RESP 18; TEMP 37; O2SAT 93
[2022-03-25 06:45] LABS: Bedside Glucose 104 mg/dL (74-106)
[2022-03-25 07:39] VITALS: BP 131/63; PULSE 79; RESP 18; TEMP 36.6; O2SAT 98
--- NOTE | 2022-03-25 07:58 | NURSING ---
attempt to reach I.D. unsuccessful x3 this am-will try again later
[2022-03-25] MEDS: Multivitamins,Therapeutic Tablet 1 TABLET PO (08:05)
[2022-03-25] MEDS: Aspirin 81 MG TAB.CHEW PO (08:05)
[2022-03-25] MEDS: Acetaminophen 325 MG Tablet 650 MG PO (08:05)
[2022-03-25] MEDS: Ferrous Sulfate 325 MG Tablet PO (08:05)
[2022-03-25] MEDS: Propranolol LA 80 MG Capsule PO (08:05)
[2022-03-25] MEDS: Nystatin Powder 15gm Bottle 1 APPLIC TOPICAL (08:06)
[2022-03-25] MEDS: metFORMIN HCl 1,000 MG Tablet 1000 MG PO ×2 (08:06→17:28)
[2022-03-25] MEDS: Menthol/Lanolin/Calamine/Znox 113 GM Tube 1 APPLIC TOPICAL (08:06)
[2022-03-25] MEDS: Clopidogrel Bisulfate 75 MG Tablet PO (08:07)
[2022-03-25] MEDS: Ascorbic Acid 500 MG Tablet PO (08:07)
[2022-03-25] MEDS: Lisinopril 10 MG Tablet PO (08:07)
[2022-03-25] MEDS: amLODIPine 5 MG Tablet PO (08:07)
--- NOTE | 2022-03-25 08:14 | CASEMGMT ---
Social Work No response from [facility] as of yet. SW sent referral to [facility]. PLAN: SNF, pending acceptance [facility]
--- NOTE | 2022-03-25 08:19 | NURSING ---
contact made with Dr Armas ans service notified of consult
--- NOTE | 2022-03-25 08:22 | NURSING ---
Dr steinberg responded and will see pt this am
--- NOTE | 2022-03-25 09:36 | WOUNDNOTE ---
wound photo: right foot
--- NOTE | 2022-03-25 09:36 | WOUNDNOTE ---
wound photo: right foot
--- NOTE | 2022-03-25 09:36 | WOUNDNOTE ---
wound photo: right foot
--- NOTE | 2022-03-25 10:43 | PN_ITS ---
Subjective Subjective Patient seen today resting in bed sitting up with family present. Patient is in good spirits and is laughing with family. Family states they are still awaiting approval for the skilled facility. Patient did eat this morning. Denies any pain at rest. Admits to occasional tenderness during dressing changes. She denies constitutional symptoms. Has no further complaints. Objective Data Objective Data Vital Signs: Vital Signs Temp Pulse Resp BP Pulse Ox O2 Del Method 97.8 F 79 18 131/63 H 98 Room Air 03/25/22 07:39 03/25/22 07:39 03/25/22 07:39 03/25/22 07:39 03/25/22 07:39 03/25/22 07:39 Oxygen Delivery Method Room Air Weight: 95 kg Body Mass Index (BMI) 37.0 Intake & Output: Intake and Output for Last 24 Hours 03/23/22 03/24/22 03/25/22 23:59 23:59 23:59 Intake Total 976 / 976 1550 / 1750 200 / 200 Output Total 1250 / 1425 475 / 475 Balance 976 / 976 300 / 325 -275 / -275 Lab / Micro Data Result Diagrams: 03/22/22 07:20 03/22/22 07:20 Labs: Laboratory Results - last 24 hr 03/24/22 11:45: POC Glucose 233 H 03/24/22 16:06: POC Glucose 235 H 03/24/22 20:27: POC Glucose 163 H 03/25/22 06:16: POC Glucose 104 Micro: Microbiology 03/21/22 19:00 Tissue - Right Foot Gram Stain - Final 03/21/22 19:00 Tissue - Right Foot Wound Culture - Final Pseudomonas aeroginosa Proteus mirabilis Enterococcus faecalis 03/21/22 19:00 Tissue - Right Foot Anaerobic Culture - Final No anaerobic bacteria isolated. 03/21/22 19:00 Bone - 4th Metatarsal Bone Gram Stain - Final 03/21/22 19:00 Bone - 4th Metatarsal Bone Wound Culture - Preliminary Pseudomonas aeroginosa Proteus mirabilis GPC Poss Enterococcus sp 03/21/22 19:00 Bone - 4th Metatarsal Bone Anaerobic Culture - Final No anaerobic bacteria isolated. Physical Exam Const alert, oriented x3, no apparent distress and well nourished General Appearance: cooperative HEENT normocephalic Eyes General Eye: normal appearance of both eyes Neck General: normal visual inspection Lymph Lymphatic: no lymphadenopathy noted and no lymphedema noted Resp normal respiratory effort Cardio regular rate and regular rhythm Extremity normal capillary refill, no joint enlargement, no calf tenderness and no pedal edema Extremity Narrative: Right lower extremity Lisfranc amputation noted with intact sutures. Distal stump appears healthy and well perfused. No signs of infection Skin no rashes or lesions noted, skin turgor normal and no jaundice Neuro moves all extremities Assessment & Plan Assessment/Plan (1) History of Lisfranc amputation of right foot: (2) Osteomyelitis of right foot: (3) Atherosclerosis of [place] arteries of extremities with gangrene, right leg: (4) Type 2 diabetes mellitus with diabetic polyneuropathy: QUALIFIERS: Diabetes mellitus mcfp insulin use: without mcfp use Qualified Code(s): E11.42 - Type 2 diabetes mellitus with diabetic polyneuropathy (5) Obesity (BMI 30-39.9): (6) Other acute postprocedural pain: PLAN: Plan Patient was seen and evaluated Patient had undergone Lisfranc amputation of the right foot. DOS 03/21/2022. POD #4 Patient was noted to be weak with difficulty standing from seated position and maintaining balance for compliance in her nonweightbearing status to the right lower extremity. Family felt that maintaining postoperative care and ensuring compliance of elevating of the lower extremity as well as maintaining her no nweightbearing status to the right lower extremity would be very difficult and felt best if she was admitted for observation and to maintain compliance with her postoperative instructions to prevent disruption of the surgical site, future infection, and a more proximal amputation below the level of the knee. Surgery 03/21/22: During surgical intervention it is noted that an adequate soft tissue coverage would be maintained without Lisfranc amputation. Following performing of the Lisfranc amputation it was necessary to undergo a swing flap/tissue rearrangement for adequate closure of the right foot as there was a large lateral defect secondary to her previous diabetic ulceration/tissue necro sis/dry gangrene of the right foot. Surgical intervention was successful in creating adequate soft tissue coverage with closure of the distal amputation stump. Prior to closure site was irrigated copiously with normal sterile saline, Irrisept, and 1 g of vancomycin powder was placed over the remaining healthy tissue and bone prior to closure. Site was dressed with Betadine soaked Adaptic, 4 x 4 gauze, Kerlix, 3 ABD padding, 4 inch and 6 inch Didier wrap rolled onto the right foot. The patient had tolerated the anesthesia and procedure well and has vascular status intact to the distal stump of the right foot. All tissue and bone post operative status is noted to be healthy appearing. Cultures: Cultures obtained at time of surgery for both tissue and bone of the fourth metatarsal which demonstrates PsA and Proteus, and Gm pos organism. Due to these positive cultures ID consulted for recommendation of antibiotic. Today dressings were taken down and the distal amputation stump of the right foot is noted to have intact sutures with no signs of infection. There is adequate perfusion noted to the distal stump at her Lisfranc amputation site. Skin flap appears healthy in coloration with adequate perfusion. Dressings changed today consisting of Betadine soaked Adaptic, 4 x 4 gauze, ABD x2, Kerlix, 4 inch Didier and 6 inch Didier rolled onto the foot. Encouraged protein in diet with Pavel supplementation to aid healing. Also encouraged continued diabetic diet to maintain adequate control of sugars to aid healing. Medicine team has been consulted for aid in medical management given patient's multiple comorbidities. Their management in this patient is greatly appreciated Social work has been consulted for seeking approval to the transitional care unit for rehabilitation prior to being discharged home. Patient looking to go to skilled facility in [facility] for rehabilitation and compliance with postoperative instructions. I will continue to follow for postoperative management while in-house. Please do not hesitate to call for any questions or concerns Jr. Konstantin GuerreroP.M. [facility] [phone] Note: [employer] speech recognition weight count operator software was used to create portions of this document. Sound-alike and misspelled words, as well as other weight count operator errors may be contained in the documentation.
--- NOTE | 2022-03-25 11:01 | PCM.TXEXTCAR ---
Diet Diet Order/Speech Therapy: 03/21/22 23:12 ADA [Diet: Consistent Carb - Calorie Controlled] Type of Dietary Supplement:: Pavel Is pt able to select menu?: Yes Diet Comments: estefania marcus w/ breakfast and dinner How many daily calories?: 1800 calorie Routine Orders/Code Status Routine Lab Work: CBC and BMP Code Status: Full Code Wound(s) RIGHT FOOT: Wound Type: surgical incision s/p Lisfranc amputation Dressing Change: betadine/Adaptic R buttocks: Wound Type: Pressure Injury Therapies Weight Bearing: Non weight bearing (Nonweightbearing right lower extremity. Utilize wheelchair and walker to maintain compliance) Extremity Affected:: Right Lower Physical Therapy: Eval and Treat (Strengthening and rehabilitation to maintain nonweightbearing status to the right lower extremity) Problem/Diagnosis (1) History of Lisfranc amputation of right foot: Status: Acute Code(s): Z89.431 - Acquired absence of right foot (2) Osteomyelitis of right foot: Status: Acute Code(s): M86.9 - Osteomyelitis, unspecified (3) Atherosclerosis of [place] arteries of extremities with gangrene, right leg: Status: Chronic Code(s): I70.261 - Atherosclerosis of [place] arteries of extremities with gangrene, right leg Comment: PVR- Interpretation Summary Bilateral no significant occlusive disease at rest with bilateral biphasic flow and KYM 1.01 and 1.4. Right small vessel disease with DBI 0.31. (4) Type 2 diabetes mellitus with diabetic polyneuropathy: Status: Chronic Code(s): E11.42 - Type 2 diabetes mellitus with diabetic polyneuropathy (5) Obesity (BMI 30-39.9): Status: Chronic Code(s): E66.9 - Obesity, unspecified (6) Other acute postprocedural pain: Status: Acute Code(s): G89.18 - Other acute postprocedural pain Plan Patient was seen and evaluated Patient had undergone Lisfranc amputation of the right foot. DOS 03/21/2022. POD #4 Patient was noted to be weak with difficulty standing from seated position and maintaining balance for compliance in her nonweightbearing status to the right lower extremity. Family felt that maintaining postoperative care and ensuring compliance of elevating of the lower extremity as well as maintaining her nonweightbearing status to the right lower extremity would be very difficult and felt best if she was admitted for observation and to maintain compliance with her postoperative instructions to prevent disruption of the surgical site, future infection, and a more proximal amputation below the level of the knee. Surgery 03/21/22: During surgical intervention it is noted that an adequate soft tissue coverage would be maintained without Lisfranc amputation. Following performing of the Lisfranc amputation it was necessary to undergo a swing flap/tissue rearrangement for adequate closure of the right foot as there was a large lateral defect secondary to her previous diabetic ulceration/tissue necrosis/dry gangrene of the right foot. Surgical intervention was successful in creating adequate soft tissue coverage with closure of the distal amputation stump. Prior to closure site was irrigated copiously with normal sterile saline, Irrisept, and 1 g of vancomycin powder was placed over the remaining healthy tissue and bone prior to closure. Site was dressed with Betadine soaked Adaptic, 4 x 4 gauze, Kerlix, 3 ABD padding, 4 inch and 6 inch Didier wrap rolled onto the right foot. The patient had tolerated the anesthesia and procedure well and has vascular status intact to the distal stump of the right foot. All tissue and bone post operative status is noted to be healthy appearing. Cultures: Cultures obtained at time of surgery for both tissue and bone of the fourth metatarsal which demonstrates PsA and Proteus, and Gm pos organism. Due to these positive cultures ID consulted for recommendation of antibiotic. ID recommending 1 week p.o. Cipro and Augmentin upon discharge. Today dressings were taken down and the distal amputation stump of the right foot is noted to have intact sutures with no signs of infection. There is adequate perfusion noted to the distal stump at her Lisfranc amputation site. Skin flap appears healthy in coloration with adequate perfusion. Dressings changed today consisting of Betadine soaked Adaptic, 4 x 4 gauze, ABD x2, Kerlix, 4 inch Didier and 6 inch Didier rolled onto the foot. Encouraged protein in diet with Pavel supplementation to aid healing. Also encouraged continued diabetic diet to maintain adequate control of sugars to aid healing. Medicine team has been consulted for aid in medical management given patient's multiple comorbidities. Their management in this patient is greatly appreciated Social work has been consulted for seeking approval to the transitional care unit for rehabilitation prior to being discharged home. [facility] and compliance with postoperative instructions. I will continue to follow for postoperative management while in-house. Please do not hesitate to call for any questions or concerns Jr. Konstantin GuerreroPBasilM. [facility] [phone] Note: [employer] speech recognition assignment officer software was used to create portions of this document. Sound-alike and misspelled words, as well as other assignment officer errors may be contained in the documentation. Allergies/Procedures Done in Hospital Allergies oxycodone Allergy (Verified 03/21/22 10:50) Other CAUSES PT TO HALLUCINATE Type of Care/Length of Stay Estimated LOS: Convalescent Care Less Than 30 days Type of Care Needed: Acute Rehab Rehab Potential: Fair Prognosis: Fair Additional Orders/Day of Discharge Day of Discharge: 03/26/22 Dietary and Speech Recommendations Dietitian Recommendations/Changes: continue consistent CHO, 1800 calorie controlled diet w/ Glucerna 120mL 4x/day w/ medpass; will add Pavel BID for wound healing. Follow Up Care Please follow up with your Primary Care Physician in: Thursday03/28/22 Please Follow Up With: Elie Zuñiga DPM When: Patient has first postoperative visit scheduled this Thursday03/28/22 Discharge Plan Admission Admit Date/Time: 03/21/22 21:40 Primary Reason for Your Visit: Lisfranc amputation of right foot-03/21/2022, dry gangrene right foot with o Attending Provider: Elie Zuñiga Primary Care Provider: Keshav Lambert Consulting Providers: Linh Mahajan ; Linh Sevilla ; Anni Nieto ; Shannan Rizo ; Jose Melvin ; Ameya Woody ; Terry Go ; Harry Chiang ; Hernando Robison ; Srinath Matthews ; Heriberto Ware ; Claire Knight ; Anita Beckham ; Honorio Carlson ; Shilo Marie ; Pedro Esparza ; Elda Solomon ; Fabián Carney ; Beti Herrera NP ; Theodore Ledesma ; Froilan Clifton Instructions Additional Instructions / Restrictions: Follow-up on 03/28/2022 with podiatry in his office Discharge Orders/Prescriptions Prescriptions: New tramadol 50 mg tablet 50 mg PO Q6H PRN (Reason: pain) 7 Days Qty: 28 0RF ciprofloxacin HCl 500 mg Tablet 500 mg PO BID 7 Days Qty: 14 0RF amoxicillin-pot clavulanate 875-125 mg Tablet 875 mg PO BID 7 Days Qty: 13 0RF tramadol 50 mg Tablet 50 mg PO Q6H PRN PRN (Reason: Pain Score 6-10) Qty: 20 0RF nystatin [Nyamyc] 100,000 unit/gram Powder 1 applic topical BID Qty: 0 0RF Protocol: *Topical Application Instructions APPLICATION INSTRUCTIONS: groin, abdominal folds menthol-zinc oxide [Calmoseptine] 0.44-20.6 % Ointment 1 applic topical BID Qty: 0 0RF Protocol: *Topical Application Instructions APPLICATION INSTRUCTIONS: buttocks insulin glargine-yfgn 100 unit/mL (3 mL) Insulin Pen 15 unit subcut BID Qty: 0 0RF ciprofloxacin HCl [Cipro] 500 mg tablet 500 mg PO BID Qty: 14 0RF amoxicillin-pot clavulanate 875-125 mg tablet 1 tab PO BID Qty: 14 0RF Rx Instructions: take with food Continued atorvastatin 80 mg tablet 80 mg PO DAILY Qty: 30 5RF clopidogrel [Plavix] 75 mg tablet 75 mg PO DAILY Qty: 90 2RF ferrous sulfate 325 mg (65 mg iron) tablet 325 mg PO DAILY Qty: 90 2RF acetaminophen [Tylenol] 325 mg Tablet 650 mg PO Q6H PRN PRN (Reason: Pain 1-10 Or Fever) Qty: 0 0RF ascorbic acid (vitamin C) [Vitamin C] 500 mg Tablet 500 mg PO DAILY multivitamin Tablet 1 tab PO DAILY metformin 1,000 mg tablet 1,000 mg PO BID lisinopril 10 mg tablet 10 mg PO DAILY propranolol 80 mg capsule,extended release 24 hr 80 mg PO DAILY Rx Instructions: Daily in the A.M. as needed for tremor amlodipine 5 mg Tablet 5 mg PO DAILY aspirin 81 mg Capsule 81 mg PO DAILY Discontinued (DME) MedVance hydrocolloid thin dressing See Rx Instructions .Route .MEDSUPPLY Qty: 1 0RF Rx Instructions: As directed garlic 100 mg Tablet 10 mg PO DAILY insulin glargine [Basaglar KwikPen U-100 Insulin] 100 unit/mL (3 mL) Insulin Pen 22 unit SUBCUT BID Referrals / Follow Up: Keshav Lambert DO [Primary Care Provider] - Elie Zuñiga DPM [Med Staff - Active Staff] - See Referral Note (03/28/22) Disposition Disposition (needs filled in before D/C Order can be placed): [facility] (1) Type 2 diabetes mellitus with diabetic polyneuropathy Qualifiers: Diabetes mellitus fdc insulin use: without exterminator helper use Qualified Code(s): E11.42 - Type 2 diabetes mellitus with diabetic polyneuropathy
--- NOTE | 2022-03-25 11:45 | CASEMGMT ---
SWATI Note SW received voicemail from [place] with [facility] stating they had a semi private female room available, daily rate is $250, patient's medications for the month are $800 and the cost for OT/PT and speech therapy would be $40 for 15 minutes. [facility] asked that the SW review these rates with patient's family and contact her if they are agreeable, [phone]. SWATI Ingrsi informed. Sadaf Luna OFFICE ADMINISTRATION INSTRUCTOR, BREE
[2022-03-25] MEDS: Glucerna Shake 120 ML LIQUID PO ×3 (11:56→17:28)
[2022-03-25] MEDS: Insulin Glargine-YFGN 100 UNIT/ML Pen 15 UNIT SC (11:57)
[2022-03-25] MEDS: Insulin Lispro 100 UNIT/ML INSULN.PEN SC ×2 (11:58→17:28)
--- NOTE | 2022-03-25 12:05 | NURSING ---
cipro and augmentin have not arrived from Rx yet
[2022-03-25 12:20] LABS: Bedside Glucose 219 mg/dL (74-106)
--- NOTE | 2022-03-25 12:33 | PCM.CONS.GEN ---
Assessment & Plan Assessment/Plan (1) History of Lisfranc amputation of right foot: (2) Osteomyelitis of right foot: PLAN: OR 03/21/[address] Zuñiga for lisfranc amputation. Surg cx with PsA, proteus, e faecalis. 01/2022 admit with MRSA in foot as well. Doing well post op. Last QTC less than 450. With clear margins, plan is for one week po cipro and augmentin and discharge and close monitoring of foot. Will follow, thank you, d/w Dr. Zuñiga (3) Type 2 diabetes mellitus with diabetic polyneuropathy: QUALIFIERS: Diabetes mellitus terminal supervisor insulin use: without nursing home use Qualified Code(s): E11.42 - Type 2 diabetes mellitus with diabetic polyneuropathy HPI Consult Data Date of Consult: 03/25/22 HPI Narrative Reason for Consultation: osteo HPI Narrative: LUC HODGES, is a 76 F who presented in January with foot osteo. Had been taken to OR 01/17/[address] Zuñiga for partial R 5th ray resection.? Toe cx with MSSA, proteus, and strep.? Clearance cx with strep.? Did not fill outpt abx.? Came back with worsening of surg site.? Wound cx with proteus and staph.? On vanc/zosyn in the hospital.? Given 6 weeks abx at discharge, po doxy and augmentin. After that had vascular procedure 02/20/[address] Lopez. Admitted 03/21 to get partial 4th ray resection and debridement of necrotic tissue in R foot. Bone was exposed and lisfranc amputation done. Surg cx with PsA, proteus, e faecalis. Feeling ok, mild intermittent pain in foot, no fever, no n/v/d. Full ROS performed and neg except as noted above. [facility] Medical History Cardiology follow-up encounter Chronic ulcer of great toe of right foot with necrosis of muscle CKD stage 2 due to type 2 diabetes mellitus Delayed wound healing Diabetes Diabetes mellitus with diabetic polyneuropathy Diabetic ulcer of left foot with fat layer exposed Dietary restriction History of amputation of toe History of stress test Hyperglycemia due to type 2 diabetes mellitus Hypertension Incomplete left bundle branch block Insulin dependent diabetes mellitus Lesion of lumbar spine Low iron Non-smoker Normocytic anemia Redness of skin Spinal stenosis, lumbar SVT (supraventricular tachycardia) Type 2 diabetes mellitus Type 2 diabetes mellitus with foot ulcer Ulcer of right foot with fat layer exposed Vitreous hemorrhage of left eye Wears dentures Wears glasses Home Medications acetaminophen 325 mg tablet (Tylenol) 650 mg PO Q6H PRN PRN Pain 1-10 Or Fever #0 tabs 11/13/21 [Rx Last Taken Unknown] ascorbic acid (vitamin C) 500 mg tablet (Vitamin C) 500 mg PO DAILY SUPPLEMENT 01/13/22 [History Last Taken 01/27/22] garlic 100 mg tablet 10 mg PO DAILY SUPPLEMENT 01/28/22 [History Last Taken 01/27/22] lisinopril 10 mg tablet 10 mg PO DAILY BP 01/28/22 [History Last Taken 03/21/22] metformin 1,000 mg tablet 1,000 mg PO BID BLOOD SUGAR 01/28/22 [History Last Taken 02/19/22] multivitamin 1 tab PO DAILY SUPPLEMENT 01/28/22 [History Last Taken 01/27/22] propranolol 80 mg capsule,24 hr,extended release 80 mg PO DAILY 01/28/22 [History Last Taken 03/21/22] atorvastatin 80 mg tablet 80 mg PO DAILY #30 tabs 02/11/22 [Rx Last Taken Unknown] MedVance hydrocolloid thin dressing #1 ea 03/05/22 [Rx Last Taken Unknown] clopidogrel 75 mg tablet (Plavix) 75 mg PO DAILY #90 tabs 03/05/22 [Rx Last Taken 03/19/22] ferrous sulfate 325 mg (65 mg iron) tablet 325 mg PO DAILY ANEMIA #90 tabs 03/05/22 [Rx Last Taken Unknown] amlodipine 5 mg tablet 5 mg PO DAILY 03/14/22 [History Last Taken 03/21/22] aspirin 81 mg capsule 81 mg PO DAILY 03/14/22 [History Last Taken Unknown] insulin glargine 100 unit/mL (3 mL) subcutaneous pen (Marisolar BalaPen U-100 Insulin) 22 unit subcut BID 03/14/22 [History Last Taken Unknown] tramadol 50 mg tablet 50 mg PO Q6H PRN pain 7 days #28 tabs 03/21/22 [Rx Last Taken Unknown] amoxicillin 875 mg-potassium clavulanate 125 mg tablet 875 mg PO BID 7 days #13 tabs 03/25/22 [Rx Last Taken Unknown] ciprofloxacin HCl 500 mg tablet 500 mg PO BID 7 days #14 tabs 03/25/22 [Rx Last Taken Unknown] Allergy/AdvReac Type Severity Reaction Status Date / Time oxycodone Allergy Other Verified 03/21/22 10:50 Family History Sister Diabetes Hypertension Father Hypertension Mother Cancer Surgical History (Updated 03/21/22 @ 21:[address] Elie Zuñiga DPM) History of adenoidectomy History of cholecystectomy History of eye surgery History of tonsillectomy Hx of foot operation Social History Smoking Status: Never smoker alcohol intake: never substance use type: does not use what type of physical activity do you participate in: none Physical Exam Const alert and no apparent distress General Appearance: cooperative HEENT normocephalic and head/scalp atraumatic Eyes PERRL and EOMs intact bilaterally Neck supple and No nodes Resp normal air movement and clear to auscultation bilaterally Cardio regular rate and regular rhythm GI soft to palpation, non-tender and non-distended Extremity General Extremity: Negative for edema Skin Skin Narrative: Reviewed photos, surg site doing well on R foot Neuro CN's II-XII intact bilaterally Lab / Micro Data Attestation: I reviewed the patient's lab results. Result Diagrams: 03/22/22 07:20 03/22/22 07:20 Labs: Laboratory Results - last 24 hr 03/24/22 16:06: POC Glucose 235 H 03/24/22 20:27: POC Glucose 163 H 03/25/22 06:16: POC Glucose 104 03/25/22 11:55: POC Glucose 219 H Micro: Microbiology 03/21/22 19:00 Tissue - Right Foot Gram Stain - Final 03/21/22 19:00 Tissue - Right Foot Wound Culture - Final Pseudomonas aeroginosa Proteus mirabilis Enterococcus faecalis 03/21/22 19:00 Tissue - Right Foot Anaerobic Culture - Final No anaerobic bacteria isolated. 03/21/22 19:00 Bone - 4th Metatarsal Bone Gram Stain - Final 03/21/22 19:00 Bone - 4th Metatarsal Bone Wound Culture - Preliminary Pseudomonas aeroginosa Proteus mirabilis GPC Poss Enterococcus sp 03/21/22 19:00 Bone - 4th Metatarsal Bone Anaerobic Culture - Final No anaerobic bacteria isolated.
[2022-03-25] MEDS: Amox/Clavulanate 875 MG Tablet PO (12:52)
[2022-03-25] MEDS: Ciprofloxacin 500 MG Tablet PO (12:52)
[2022-03-25] MEDS: traMADol 50 MG Tablet PO (12:55)
--- NOTE | 2022-03-25 12:57 | CASEMGMT ---
FRANTZ CM NOTE: Dr Hills sent scripts for Cipro and Augmentin to [facility] Retail pharmacy. SWATI Amado, confirmed plan is still for pt to go to a SNF. Ingris made aware of need of scripts from Dr Hills for these 2 atb's @ d/c for SNF. Sonia @ [facility] Retail pharmacy notified these meds do not need filled. Slime MARTINEZ RN CM
--- NOTE | 2022-03-25 13:04 | CASEMGMT ---
Social work Family asked about TCU this morning. SWATI checked with [facility] at [facility]. Daysi to collaborate with Selena Altamirano, regarding pricing. SWATI informed family of this and gave list of prices that were provided from [employer] [facility], and [employer] [facility] as well. Later in afternoon Daysi from [facility] reports there are several other on waiting list before this patient. Daysi shared soonest pt can admit would be Thursday or . SWATI shared this information with MD Ledesma. okay with this plan. Ingris Dash, LUCERO
--- NOTE | 2022-03-25 14:00 | CASEMGMT ---
Social Work [facility] requesting therapy updates. SW sent via [employer]. LUCERO Mendosa
[2022-03-25 14:42] VITALS: BP 127/67; PULSE 80; RESP 18; TEMP 36.7; O2SAT 95
--- NOTE | 2022-03-25 15:34 | CASEMGMT ---
Social Work Daysi from TCU reached out. Pt can admit to TCU. A payment plan has been arranged with pt's [facility] ([employer]) and the hospital. Family has been updated of this information. SW updated MD Ledesma to inform pt can admit tonight or tomorrow. PLAN: [facility] LUCERO Mendosa
--- NOTE | 2022-03-25 16:29 | TREXTCAR_ITS ---
Diet Diet Order/Speech Therapy: 03/21/22 23:12 ADA [Diet: Consistent Carb - Calorie Controlled] Type of Dietary Supplement:: Pavel Is pt able to select menu?: Yes Diet Comments: estefania marcus w/ breakfast and dinner How many daily calories?: 1800 calorie Routine Orders/Code Status Routine Lab Work: CBC, BMP and - (Fingerstick blood sugars AC nightly, coverage with Humalog subcu per sliding scale: 200-250: 5 units, 251-300: 8 units, 301- 350: 12 units, 351-400: 15 units) Code Status: Full Code Wound(s) RIGHT FOOT: Wound Type: surgical incision s/p Lisfranc amputation (No weightbearing, change dressing daily-Adaptic with Betadine, dry sterile dressing over the Adaptic, do not wash foot, dry only) Dressing Change: betadine/Adaptic R buttocks: Wound Type: Pressure Injury Therapies Weight Bearing: Non weight bearing (Nonweightbearing right lower extremity. Utilize wheelchair and walker to maintain compliance) Extremity Affected:: Right Lower Physical Therapy: Eval and Treat (Strengthening and rehabilitation to maintain nonweightbearing status to the right lower extremity) Occupational Therapy: Eval and Treat Problem/Diagnosis (1) History of Lisfranc amputation of right foot: Status: Acute Code(s): Z89.431 - Acquired absence of right foot (2) Osteomyelitis of right foot: Status: Acute Code(s): M86.9 - Osteomyelitis, unspecified (3) Atherosclerosis of [place] arteries of extremities with gangrene, right leg: Status: Chronic Code(s): I70.261 - Atherosclerosis of [place] arteries of extremities with gangrene, right leg Comment: PVR- Interpretation Summary Bilateral no significant occlusive disease at rest with bilateral biphasic flow and KYM 1.01 and 1.4. Right small vessel disease with DBI 0.31. (4) Type 2 diabetes mellitus with diabetic polyneuropathy: Status: Chronic Code(s): E11.42 - Type 2 diabetes mellitus with diabetic polyneuropathy (5) Obesity (BMI 30-39.9): Status: Chronic Code(s): E66.9 - Obesity, unspecified (6) Other acute postprocedural pain: Status: Acute Code(s): G89.18 - Other acute postprocedural pain Plan 1. Type 2 diabetes-continue to monitor blood sugars, sliding scale insulin will be used if needed #2 neuropathy secondary to type 2 diabetes-complicates care, medical course, recovery, and prognosis #3 essential hypertension-patient remain on her present medications #4 peripheral vascular disease secondary to type 2 diabetes-continue Plavix #5 hyperlipidemia-patient is on a statin #6 status post Lisfranc amputation of right foot postop day #3-continue PT and OT, patient will need short-term assisted placement Total clinical time spent by myself addressing patient's medical issues, reviewing all of her data, and collaborating with patient's care team: 36 minutes Allergies/Procedures Done in Hospital Allergies oxycodone Allergy (Verified 03/21/22 10:50) Other CAUSES PT TO HALLUCINATE Procedures: - (Partial fourth ray resection of right foot with debridement of necrotic tissue transitioned to Lisfranc amputation of right foot) Type of Care/Length of Stay Estimated LOS: Convalescent Care Less Than 30 days Type of Care Needed: Acute Rehab Rehab Potential: Fair Prognosis: Fair Additional Orders/Day of Discharge H&P will serve as current which was dated: 03/21/22 Day of Discharge: 03/26/22 Dietary and Speech Recommendations Dietitian Recommendations/Changes: continue consistent CHO, 1800 calorie controlled diet w/ Glucerna 120mL 4x/day w/ medpass; will add Pavel BID for wound healing. Follow Up Care Please follow up with your Primary Care Physician in: Thursday03/28/22 Please Follow Up With: Elie Zuñiga DPM When: Patient has first postoperative visit scheduled this Thursday03/28/22 Discharge Plan Admission Admit Date/Time: 03/21/22 21:40 Primary Reason for Your Visit: Lisfranc amputation of right foot-03/21/2022, dry gangrene right foot with o Attending Provider: Elie Zuñiga Primary Care Provider: Keshav Lambert Consulting Providers: Linh Mahajan ; Linh Sevilla ; Anni Nieto ; Shannan Rizo ; Jose Melvin ; Ameya Woody ; Terry Go ; Harry Chiang ; Hernando Robison ; Srinath Matthews ; Heriberto Ware ; Claire Knight ; Anita Beckham ; Honorio Carlson ; Shilo Marie ; Pedro Esparza ; Elda Solomon ; Fabián Carney ; Beti Herrera NP ; Theodore Ledesma ; Froilan Clifton Instructions Additional Instructions / Restrictions: Follow-up on 03/28/2022 with podiatry in his office Discharge Orders/Prescriptions Prescriptions: New tramadol 50 mg tablet 50 mg PO Q6H PRN (Reason: pain) 7 Days Qty: 28 0RF ciprofloxacin HCl 500 mg Tablet 500 mg PO BID 7 Days Qty: 14 0RF amoxicillin-pot clavulanate 875-125 mg Tablet 875 mg PO BID 7 Days Qty: 13 0RF tramadol 50 mg Tablet 50 mg PO Q6H PRN PRN (Reason: Pain Score 6-10) Qty: 20 0RF nystatin [Nyamyc] 100,000 unit/gram Powder 1 applic topical BID Qty: 0 0RF Protocol: *Topical Application Instructions APPLICATION INSTRUCTIONS: groin, abdominal folds menthol-zinc oxide [Calmoseptine] 0.44-20.6 % Ointment 1 applic topical BID Qty: 0 0RF Protocol: *Topical Application Instructions APPLICATION INSTRUCTIONS: buttocks insulin glargine-yfgn 100 unit/mL (3 mL) Insulin Pen 15 unit subcut BID Qty: 0 0RF ciprofloxacin HCl [Cipro] 500 mg tablet 500 mg PO BID Qty: 14 0RF amoxicillin-pot clavulanate 875-125 mg tablet 1 tab PO BID Qty: 14 0RF Rx Instructions: take with food Continued atorvastatin 80 mg tablet 80 mg PO DAILY Qty: 30 5RF clopidogrel [Plavix] 75 mg tablet 75 mg PO DAILY Qty: 90 2RF ferrous sulfate 325 mg (65 mg iron) tablet 325 mg PO DAILY Qty: 90 2RF acetaminophen [Tylenol] 325 mg Tablet 650 mg PO Q6H PRN PRN (Reason: Pain 1-10 Or Fever) Qty: 0 0RF ascorbic acid (vitamin C) [Vitamin C] 500 mg Tablet 500 mg PO DAILY multivitamin Tablet 1 tab PO DAILY metformin 1,000 mg tablet 1,000 mg PO BID lisinopril 10 mg tablet 10 mg PO DAILY propranolol 80 mg capsule,extended release 24 hr 80 mg PO DAILY Rx Instructions: Daily in the A.M. as needed for tremor amlodipine 5 mg Tablet 5 mg PO DAILY aspirin 81 mg Capsule 81 mg PO DAILY Discontinued (DME) MedVance hydrocolloid thin dressing See Rx Instructions .Route .MEDSUPPLY Qty: 1 0RF Rx Instructions: As directed garlic 100 mg Tablet 10 mg PO DAILY insulin glargine [Basaglar KwikPen U-100 Insulin] 100 unit/mL (3 mL) Insulin Pen 22 unit SUBCUT BID Referrals / Follow Up: Keshav Lambert DO [Primary Care Provider] - Elie Zuñiga DPM [Med Staff - Active Staff] - See Referral Note (03/28/22) Disposition Disposition (needs filled in before D/C Order can be placed): [facility] ([facility]) Type 2 diabetes mellitus with diabetic polyneuropathy Qualifiers: Diabetes mellitus intermediate school teacher insulin use: without intermediate school teacher use Qualified Code(s): E11.42 - Type 2 diabetes mellitus with diabetic polyneuropathy
--- NOTE | 2022-03-25 16:43 | PN.HOSP_ITS ---
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 Patient was excepted to TCU today for short-term skilled services. Discharge paperwork was filled out by myself today. Objective Data Objective Data Vital Signs: Vital Signs Temp Pulse Resp BP Pulse Ox O2 Del Method 98.0 F 80 18 127/67 H 95 Room Air 03/25/22 14:42 03/25/22 14:42 03/25/22 14:42 03/25/22 14:42 03/25/22 14:42 03/25/22 16:31 Oxygen Delivery Method Room Air Weight: 95 kg Body Mass Index (BMI) 37.0 Intake & Output: Intake and Output for Last 24 Hours 03/23/22 03/24/22 03/25/22 23:59 23:59 23:59 Intake Total 976 / 976 1550 / 1750 700 / 700 Output Total 1250 / 1425 475 / 475 Balance 976 / 976 300 / 325 225 / 225 Lab / Micro Data Result Diagrams: 03/22/22 07:20 03/22/22 07:20 Labs: Laboratory Results - last 24 hr 03/24/22 20:27: POC Glucose 163 H 03/25/22 06:16: POC Glucose 104 03/25/22 11:55: POC Glucose 219 H Micro: Microbiology 03/21/22 19:00 Tissue - Right Foot Gram Stain - Final 03/21/22 19:00 Tissue - Right Foot Wound Culture - Final Pseudomonas aeroginosa Proteus mirabilis Enterococcus faecalis 03/21/22 19:00 Tissue - Right Foot Anaerobic Culture - Final No anaerobic bacteria isolated. 03/21/22 19:00 Bone - 4th Metatarsal Bone Gram Stain - Final 03/21/22 19:00 Bone - 4th Metatarsal Bone Wound Culture - Preliminary Pseudomonas aeroginosa Proteus mirabilis GPC Poss Enterococcus sp 03/21/22 19:00 Bone - 4th Metatarsal Bone Anaerobic Culture - Final No anaerobic bacteria isolated. Physical Exam Narrative alert, oriented x3, no apparent distress and healthy appearing General Appearance: cooperative, well kempt and well developed Orientation / Consciousness: awake, oriented to person, oriented to place and oriented to time HEENT normocephalic, head/scalp atraumatic and moist oral mucous membranes Eyes PERRL, EOMs intact bilaterally and conjunctivae normal Neck supple, no JVD and thyroid normal General: trachea midline Resp normal respiratory effort, no retractions, no use of accessory muscles and clear to auscultation bilaterally Auscultation: Negative for rales, rhonchi or wheezes Cardio regular rate, regular rhythm, S1 normal heart sound, S2 normal heart sound, no murmurs, no rub and no gallops GI normal to inspection, nondistended, normoactive bowel sounds, soft to palpation, non-tender and non-distended Neuro oriented x3, CN's II-XII intact bilaterally, no focal motor deficits and no sensory deficits noted Sensorium / Orientation: awake and alert Speech: speech normal Psych affect normal Assessment & Plan Assessment/Plan (1) History of Lisfranc amputation of right foot: PLAN: Plan 1. Type 2 diabetes-patient appears stable for transfer to TCU at this time #2 neuropathy secondary to type 2 diabetes #3 essential hypertension #4 peripheral vascular disease secondary to type 2 diabetes #5 hyperlipidemia #6 status post Lisfranc amputation of the right foot. Total clinical time spent by myself addressing the patient's medical problems, reviewing all the patient's data, and collaborating with patient's care team: 50 minutes Charges/Coding Visit Charges Inpatient E&M: [id number] [facility] L3
--- NOTE | 2022-03-25 16:55 | PCM.DC.SUM ---
Providers Date of Admission: 03/21/22 Date of Discharge: 03/25/22 Primary Care Physician: Dr. Keshav Lambert, Consultations 03/21/22 21:45 Consult: Hospitalist Routine Consulting Provider: Daniel Stein Reason for Consult: Post-operative medical management EMERGENT Consult: No Notified: Yes Date Notified: 03/21/22 Time Notified: 21:39 Method of Notification: Text 03/23/22 14:00 Consult: Infectious Disease Routine Consulting Provider: Froilan Clifton Reason for Consult: Positive Post Surgical cultures - PsA & Proteus - Abx Recommendations EMERGENT Consult: No Notified: Yes Date Notified: 03/24/22 Time Notified: 06:45 Method of Notification: answering service Reason For Visit: PARTIAL 4TH RAY AMP RT FOOT DEBRIDEMENT NEC TISSUE Diagnosis Discharge Diagnosis (1) History of Lisfranc amputation of right foot: Status: Acute Code(s): Z89.431 - Acquired absence of right foot (2) Osteomyelitis of right foot: Status: Acute Code(s): M86.9 - Osteomyelitis, unspecified (3) Atherosclerosis of [place] arteries of extremities with gangrene, right leg: Status: Chronic Code(s): I70.261 - Atherosclerosis of [place] arteries of extremities with gangrene, right leg (4) Type 2 diabetes mellitus with diabetic polyneuropathy: Status: Chronic Code(s): E11.42 - Type 2 diabetes mellitus with diabetic polyneuropathy Qualifiers: Diabetes mellitus termite treater helper insulin use: without fpc use Qualified Code(s): E11.42 - Type 2 diabetes mellitus with diabetic polyneuropathy (5) Obesity (BMI 30-39.9): Status: Chronic Code(s): E66.9 - Obesity, unspecified (6) Other acute postprocedural pain: Status: Acute Code(s): G89.18 - Other acute postprocedural pain Plan Patient was seen and evaluated Patient had undergone Lisfranc amputation of the right foot. DOS 03/21/2022. POD #4 Patient was noted to be weak with difficulty standing from seated position and maintaining balance for compliance in her nonweightbearing status to the right lower extremity. Family felt that maintaining postoperative care and ensuring compliance of elevating of the lower extremity as well as maintaining her nonweightbearing status to the right lower extremity would be very difficult and felt best if she was admitted for observation and to maintain compliance with her postoperative instructions to prevent disruption of the surgical site, future infection, and a more proximal amputation below the level of the knee. Surgery 03/21/22: During surgical intervention it is noted that an adequate soft tissue coverage would be maintained without Lisfranc amputation. Following performing of the Lisfranc amputation it was necessary to undergo a swing flap/tissue rearrangement for adequate closure of the right foot as there was a large lateral defect secondary to her previous diabetic ulceration/tissue necrosis/dry gangrene of the right foot. Surgical intervention was successful in creating adequate soft tissue coverage with closure of the distal amputation stump. Prior to closure site was irrigated copiously with normal sterile saline, Irrisept, and 1 g of vancomycin powder was placed over the remaining healthy tissue and bone prior to closure. Site was dressed with Betadine soaked Adaptic, 4 x 4 gauze, Kerlix, 3 ABD padding, 4 inch and 6 inch Didier wrap rolled onto the right foot. The patient had tolerated the anesthesia and procedure well and has vascular status intact to the distal stump of the right foot. All tissue and bone post operative status is noted to be healthy appearing. Cultures: Cultures obtained at time of surgery for both tissue and bone of the fourth metatarsal which demonstrates PsA and Proteus, and Gm pos organism. Due to these positive cultures ID consulted for recommendation of antibiotic. ID recommending 1 week p.o. Cipro and Augmentin upon discharge. Today dressings were taken down and the distal amputation stump of the right foot is noted to have intact sutures with no signs of infection. There is adequate perfusion noted to the distal stump at her Lisfranc amputation site. Skin flap appears healthy in coloration with adequate perfusion. Dressings changed today consisting of Betadine soaked Adaptic, 4 x 4 gauze, ABD x2, Kerlix, 4 inch Didier and 6 inch Didier rolled onto the foot. Encouraged protein in diet with Pavel supplementation to aid healing. Also encouraged continued diabetic diet to maintain adequate control of sugars to aid healing. Medicine team has been consulted for aid in medical management given patient's multiple comorbidities. Their management in this patient is greatly appreciated Social work has been consulted for seeking approval to the transitional care unit for rehabilitation prior to being discharged home. [facility] and compliance with postoperative instructions. I will continue to follow for postoperative management while in-house. Please do not hesitate to call for any questions or concerns Jr. Konstantin GuerreroPWandy. [facility] [phone] Note: [employer] speech recognition manual tester software was used to create portions of this document. Sound-alike and misspelled words, as well as other manual tester errors may be contained in the documentation. Medications at Discharge Home Medications acetaminophen 325 mg tablet (Tylenol) 650 mg PO Q6H PRN PRN Pain 1-10 Or Fever #0 tabs 11/13/21 ascorbic acid (vitamin C) 500 mg tablet (Vitamin C) 500 mg PO DAILY SUPPLEMENT 01/13/22 lisinopril 10 mg tablet 10 mg PO DAILY BP 01/28/22 metformin 1,000 mg tablet 1,000 mg PO BID BLOOD SUGAR 01/28/22 multivitamin 1 tab PO DAILY SUPPLEMENT 01/28/22 propranolol 80 mg capsule,24 hr,extended release 80 mg PO DAILY 01/28/22 atorvastatin 80 mg tablet 80 mg PO DAILY #30 tabs 02/11/22 clopidogrel 75 mg tablet (Plavix) 75 mg PO DAILY #90 tabs 03/05/22 ferrous sulfate 325 mg (65 mg iron) tablet 325 mg PO DAILY ANEMIA #90 tabs 03/05/22 amlodipine 5 mg tablet 5 mg PO DAILY 03/14/22 aspirin 81 mg capsule 81 mg PO DAILY 03/14/22 tramadol 50 mg tablet 50 mg PO Q6H PRN pain 7 days #28 tabs 03/21/22 amoxicillin 875 mg-potassium clavulanate 125 mg tablet 1 tab PO BID #14 tabs 03/25/22 amoxicillin 875 mg-potassium clavulanate 125 mg tablet 875 mg PO BID 7 days #13 tabs 03/25/22 ciprofloxacin HCl 500 mg tablet 500 mg PO BID 7 days #14 tabs 03/25/22 ciprofloxacin HCl 500 mg tablet (Cipro) 500 mg PO BID #14 tabs 03/25/22 insulin glargine-yfgn 100 unit/mL (3 mL) subcutaneous pen 15 unit (0.15 mL) subcut BID #0 mL 03/25/22 menthol 0.44 %-zinc oxide 20.6 % topical ointment (Calmoseptine) 1 applic topical BID #0 grams 03/25/22 nystatin 100,000 unit/gram topical powder (Nyamyc) 1 applic topical BID #0 grams 03/25/22 tramadol 50 mg tablet 50 mg PO Q6H PRN PRN Pain Score 6-10 #20 tabs 03/25/22 Hospital Course Operations - (Lisfranc amputation right foot) Summary of Care Provided Hospital Course: Patient presented to [facility] for planned outpatient procedure for partial fourth ray resection and debridement of all necrotic tissue of the right foot. Surgery 03/21/22: During surgical intervention it is noted that an adequate soft tissue coverage would not be maintained without Lisfranc amputation. Discussed with family the need to perform a more proximal amputation for limb salvage. Family was in agreement with this new plan and verbal consent was obtained to perform a Lisfranc amputation of the right foot. Following performing of the Lisfranc amputation it was necessary to undergo a swing flap/tissue rearrangement for adequate closure of the right foot as there was a large lateral defect secondary to her previous diabetic ulceration/tissue necrosis/dry gangrene of the right foot. Surgical intervention was successful in creating adequate soft tissue coverage with closure of the distal amputation stump. Prior to closure site was irrigated copiously with normal sterile saline, Irrisept, and 1 g of vancomycin powder was placed over the remaining healthy tissue and bone prior to closure. Site was dressed with Betadine soaked Adaptic, 4 x 4 gauze, Kerlix, 3 ABD padding, 4 inch and 6 inch Didier wrap rolled onto the right foot. The patient had tolerated the anesthesia and procedure well and has vascular status intact to the distal stump of the right foot. All tissue and bone post operative status is noted to be healthy appearing. Patient had undergone Lisfranc amputation of the right foot. DOS 03/21/2022. Patient was noted to be weak with difficulty standing from seated position and maintaining balance for compliance in her nonweightbearing status to the right lower extremity following surgical intervention. Family felt that maintaining postoperative care and ensuring compliance of elevating of the lower extremity as well as maintaining her nonweightbearing status to the right lower extremity would be very difficult and felt best if she was admitted for observation and to maintain compliance with her postoperative instructions to prevent disruption of the surgical site, future infection, and a more proximal amputation below the level of the knee. Post surgery and over the next few following days her dressings were changed and the amputation site and skin flap were monitored closely for signs of failure. The soft tissue flap was noted to be well perfused with adequate soft tissue coloration and palpable pulses. Medicine team was consulted for medical management and infectious disease was consulted for postoperative antibiotic recommendations as cultures were positive for PsA, Proteus, E faecalis. ID recommending 1 week course of oral antibiotic Cipro and Augmentin. Patient will be transferred to the transitional care unit at [facility] for continued postoperative care, continued compliance of postoperative instructions and nonweightbearing status to the right lower extremity, and building strength/rehabilitation prior to being discharged home. Patient discharged from [facility] 03/25/2022 in stable condition, good spirits, and well perfused right lower extremity stump. Physical Exam Const alert, oriented x3, no apparent distress and well nourished General Appearance: cooperative HEENT normocephalic Eyes General Eye: normal appearance of both eyes Neck General: normal visual inspection Lymph Lymphatic: no lymphadenopathy noted and no lymphedema noted Resp normal respiratory effort Cardio regular rate and regular rhythm Extremity normal capillary refill, no joint enlargement, no calf tenderness and no pedal edema Extremity Narrative: Right lower extremity Lisfranc amputation noted with intact sutures. Distal stump appears healthy and well perfused. No signs of infection Skin no rashes or lesions noted, skin turgor normal and no jaundice Neuro moves all extremities Weight / BMI Weight Weight: 95 kg Body Mass Index (BMI) 37.0 ABG / Lab / Microbiology Data Result Diagrams: 03/22/22 07:20 03/22/22 07:20 Laboratory: Laboratory Results - last 24 hr 03/24/22 20:27: POC Glucose 163 H 03/25/22 06:16: POC Glucose 104 03/25/22 11:55: POC Glucose 219 H Microbiology: Microbiology 03/21/22 19:00 Tissue - Right Foot Gram Stain - Final 03/21/22 19:00 Tissue - Right Foot Wound Culture - Final Pseudomonas aeroginosa Proteus mirabilis Enterococcus faecalis 03/21/22 19:00 Tissue - Right Foot Anaerobic Culture - Final No anaerobic bacteria isolated. 03/21/22 19:00 Bone - 4th Metatarsal Bone Gram Stain - Final 03/21/22 19:00 Bone - 4th Metatarsal Bone Wound Culture - Preliminary Pseudomonas aeroginosa Proteus mirabilis GPC Poss Enterococcus sp 03/21/22 19:00 Bone - 4th Metatarsal Bone Anaerobic Culture - Final No anaerobic bacteria isolated. D/C Instructions Discharge Diet: No restrictions Weight Bearing Status: No weight bearing (Nonweightbearing to right lower extremity with aid of walker or wheelchair) Keep extremity elevated above heart level: Right Leg (Elevate right lower extremity at all times of rest for postoperative edema control) Call your doctor if you observe: Fever of 101 or Higher, Chest pain, Calf discomfort and Uncontrolled pain Cleanse incision/area with: Do not get Incision Wet (Do not get surgical site wet.) and Keep Dressing Clean & Dry (Keep dressings clean, dry, and intact to the right foot) Please Follow Up With: Elie Zuñiga DPM When: Patient has first postoperative appointment scheduled in office Meaningful Use Info Meaningful Use Diagnoses (Choose all that apply): None applicable Discharge Plan Admission Admit Date/Time: 03/21/22 21:40 Primary Reason for Your Visit: Lisfranc amputation of right foot-03/21/2022, dry gangrene right foot with o Attending Provider: Elie Zuñiga Primary Care Provider: Keshav Lambert Consulting Providers: Linh Mahajan ; Linh Sevilla ; Anni Nieto ; Shannan Rizo ; Jose Melvin ; Ameya Woody ; Terry Go ; Harry Chiang ; Hernando Robison ; Srinath Matthews ; Heriberto Ware ; Claire Knight ; Anita Beckham ; Honorio Carlson ; Shilo Marie ; Pedro Esparza ; Elda Solomon ; Fabián Carney ; Beti Herrera NP ; Theodore Ledesma ; Froilan Clifton Instructions Additional Instructions / Restrictions: Follow-up on 03/28/2022 with podiatry in his office Discharge Orders/Prescriptions Prescriptions: New tramadol 50 mg tablet 50 mg PO Q6H PRN (Reason: pain) 7 Days Qty: 28 0RF ciprofloxacin HCl 500 mg Tablet 500 mg PO BID 7 Days Qty: 14 0RF amoxicillin-pot clavulanate 875-125 mg Tablet 875 mg PO BID 7 Days Qty: 13 0RF tramadol 50 mg Tablet 50 mg PO Q6H PRN PRN (Reason: Pain Score 6-10) Qty: 20 0RF nystatin [Nyamyc] 100,000 unit/gram Powder 1 applic topical BID Qty: 0 0RF Protocol: *Topical Application Instructions APPLICATION INSTRUCTIONS: groin, abdominal folds menthol-zinc oxide [Calmoseptine] 0.44-20.6 % Ointment 1 applic topical BID Qty: 0 0RF Protocol: *Topical Application Instructions APPLICATION INSTRUCTIONS: buttocks insulin glargine-yfgn 100 unit/mL (3 mL) Insulin Pen 15 unit subcut BID Qty: 0 0RF ciprofloxacin HCl [Cipro] 500 mg tablet 500 mg PO BID Qty: 14 0RF amoxicillin-pot clavulanate 875-125 mg tablet 1 tab PO BID Qty: 14 0RF Rx Instructions: take with food Continued atorvastatin 80 mg tablet 80 mg PO DAILY Qty: 30 5RF clopidogrel [Plavix] 75 mg tablet 75 mg PO DAILY Qty: 90 2RF ferrous sulfate 325 mg (65 mg iron) tablet 325 mg PO DAILY Qty: 90 2RF acetaminophen [Tylenol] 325 mg Tablet 650 mg PO Q6H PRN PRN (Reason: Pain 1-10 Or Fever) Qty: 0 0RF ascorbic acid (vitamin C) [Vitamin C] 500 mg Tablet 500 mg PO DAILY multivitamin Tablet 1 tab PO DAILY metformin 1,000 mg tablet 1,000 mg PO BID lisinopril 10 mg tablet 10 mg PO DAILY propranolol 80 mg capsule,extended release 24 hr 80 mg PO DAILY Rx Instructions: Daily in the A.M. as needed for tremor amlodipine 5 mg Tablet 5 mg PO DAILY aspirin 81 mg Capsule 81 mg PO DAILY Discontinued (DME) MedVance hydrocolloid thin dressing See Rx Instructions .Route .MEDSUPPLY Qty: 1 0RF Rx Instructions: As directed garlic 100 mg Tablet 10 mg PO DAILY insulin glargine [Basaglar KwikPen U-100 Insulin] 100 unit/mL (3 mL) Insulin Pen 22 unit SUBCUT BID Referrals / Follow Up: Keshav Lambert DO [Primary Care Provider] - Elie Zuñiga DPM [Med Staff - Active Staff] - See Referral Note (03/28/22) Disposition Disposition (needs filled in before D/C Order can be placed): Detention Facility
[2022-03-25 17:00] LABS: Bedside Glucose 262 mg/dL (74-106)
--- NOTE | 2022-03-25 17:57 | NURSING ---
Report called to R[facility] in TCU.
== END 2022-03-25 18:09 | disposition skilled nursing facility (03) | DRG 617 ==
LOC: MS3 03-22 07:06 → SDC 03-24 10:16 → MS3 03-24 10:16
PROVIDERS: Hospitalist; Admitting Provider Student in an Organized Health Care Education/Training Program; PCP Family Medicine; Referring Provider Student in an Organized Health Care Education/Training Program; Visit Provider Student in an Organized Health Care Education/Training Program
PROC: 0Y6M0Z0 Detachment at Right Foot, Complete, Open Approach (ICD-10-PCS; principal; 2022-03-21 12:15)
DX: E11.69 Type 2 diabetes mellitus with other specified complication (principal); E11.52 Type 2 diabetes mellitus with diabetic peripheral angiopathy with gangrene; M86.171 Other acute osteomyelitis, right ankle and foot; L97.516 Non-pressure chronic ulcer of other part of right foot with bone involvement without evidence of necrosis; I70.261 Atherosclerosis of native arteries of extremities with gangrene, right leg; M86.8X7 Other osteomyelitis, ankle and foot; E11.22 Type 2 diabetes mellitus with diabetic chronic kidney disease; B95.62 Methicillin resistant Staphylococcus aureus infection as the cause of diseases classified elsewhere; E11.621 Type 2 diabetes mellitus with foot ulcer; Z79.4 Long term (current) use of insulin; E11.42 Type 2 diabetes mellitus with diabetic polyneuropathy; E66.01 Morbid (severe) obesity due to excess calories; I12.9 Hypertensive chronic kidney disease with stage 1 through stage 4 chronic kidney disease, or unspecified chronic kidney disease; N18.2 Chronic kidney disease, stage 2 (mild); E78.5 Hyperlipidemia, unspecified; G89.18 Other acute postprocedural pain; Z68.37 Body mass index [BMI] 37.0-37.9, adult; Z20.822 Contact with and (suspected) exposure to COVID-19; Z79.02 Long term (current) use of antithrombotics/antiplatelets; Z79.82 Long term (current) use of aspirin; Z79.84 Long term (current) use of oral hypoglycemic drugs; Z79.899 Other long term (current) drug therapy
CPT/HCPCS: 36415; 73620; 73630; 76000; 80048; 82962; 85025; 87015; 87070; 87075; 87077; 87102; 87116; 87184; 87186; 87205; 87206; 87811; 88304; 88305; 88311; 97110; 97162; 97165; 97530; 97535; 97802; J7030; J7120; A4216; J2405

== ENCOUNTER 2022-03-25 18:41 | Inpatient (IN) | payer SELFPAY, OTHER ==
[2022-03-25 19:20] VITALS: BP 132/54; PULSE 90; RESP 18; TEMP 37.5; O2SAT 94
[2022-03-25 19:21] VITALS: BMI 35.2
--- NOTE | 2022-03-25 19:56 | NURSING ---
Addendum entered by Dave Russell 03/25/22 20:31: Baseline care plan provided to patient/family Original Note: Patient alert to self, unable to correctly state time, location, month, year, or situation. Daughter/patient cash posting representative (Angelina) present in room. Several visitors observed in room without masks and educated on mask policy, all visitors verbalized understanding. Patient rep Angelina answered admission questions due to patient confusion and states will be spending the night with patient. Patient confusion discussed with patient rep (Angelina), per Angelina patient is alert and oriented to person/place/time at home and states patient confusion is related to pain medications, but her foot doctor knows about it. Discussed vaccination status Patient rep (Angelina) states patient will not be accepting any vaccinations during stay on TCU and has no vaccine history to share. Code status discussed with daughter/rep (Angelina) and full code decided at this time. Family remains at bedside. No distress observed or reported. No complaint of pain. Denies requests. Call light in reach.
--- NOTE | 2022-03-25 20:25 | HP.PCM_ITS ---
HPI - General General Date of Admission: 03/25/22 Date of Service: 03/26/22 Chief Complaint: Here for rehabilitation. HPI Narrative LUC HODGES, is a 76 Female who presents with followin03/21/2022 Admit to Hospital. 03/21/2022 Dr. Zuñiga performed Lisfranc amputation of right foot. PT/OT for debility. 03/22/2022 Family unable to care for patient at home. SNF recommended. 03/23/2022 PT/OT for SNF. 03/25/2022 Dr. Hills noted surgical cultures grew pseudomonas aeruginosa, proteus, enterococcus faecalis, MRSA, surgical margins clear. Recommended oral Cipro and Augmentin for 1 week. 03/25/2022 Admit to TCU with debility, here for rehabilitation, strengthening, prior to discharge home with family. [facility] Medical History Cardiology follow-up encounter Chronic ulcer of great toe of right foot with necrosis of muscle CKD stage 2 due to type 2 diabetes mellitus Delayed wound healing Diabetes Diabetes mellitus with diabetic polyneuropathy Diabetic ulcer of left foot with fat layer exposed Dietary restriction History of amputation of toe History of stress test Hyperglycemia due to type 2 diabetes mellitus Hypertension Incomplete left bundle branch block Insulin dependent diabetes mellitus Lesion of lumbar spine Low iron Non-smoker Normocytic anemia Redness of skin Spinal stenosis, lumbar SVT (supraventricular tachycardia) Type 2 diabetes mellitus Type 2 diabetes mellitus with foot ulcer Ulcer of right foot with fat layer exposed Vitreous hemorrhage of left eye Wears dentures Wears glasses Home Medications acetaminophen 325 mg tablet (Tylenol) 650 mg PO Q6H PRN PRN Pain 1-10 Or Fever #0 tabs 11/13/21 [Rx Last Taken Unknown] ascorbic acid (vitamin C) 500 mg tablet (Vitamin C) 500 mg PO DAILY SUPPLEMENT 01/13/22 [History Last Taken 01/27/22] lisinopril 10 mg tablet 10 mg PO DAILY BP 01/28/22 [History Last Taken 03/21/22] metformin 1,000 mg tablet 1,000 mg PO BID BLOOD SUGAR 01/28/22 [History Last Taken 02/19/22] multivitamin 1 tab PO DAILY SUPPLEMENT 01/28/22 [History Last Taken 01/27/22] propranolol 80 mg capsule,24 hr,extended release 80 mg PO DAILY PRN tremors 01/28/22 [History Last Taken 03/21/22] ferrous sulfate 325 mg (65 mg iron) tablet 325 mg PO DAILY ANEMIA #90 tabs 03/05/22 [Rx Last Taken Unknown] amlodipine 5 mg tablet 5 mg PO DAILY BP 03/14/22 [History Last Taken 03/21/22] aspirin 81 mg capsule 81 mg PO DAILY heart 03/14/22 [History Last Taken Unknown] tramadol 50 mg tablet 50 mg PO Q6H PRN pain 7 days #28 tabs 03/21/22 [Rx Last Ta zohreh Unknown] amoxicillin 875 mg-potassium clavulanate 125 mg tablet 1 tab PO BID #14 tabs 03/25/22 [Rx Last Taken Unknown] amoxicillin 875 mg-potassium clavulanate 125 mg tablet 875 mg PO BID antibiotic 03/25/22 [History Last Taken Unknown] atorvastatin 80 mg tablet 80 mg PO DAILY cholesterol 03/25/22 [History Last Taken Unknown] ciprofloxacin HCl 500 mg tablet 500 mg PO BID infection 03/25/22 [History Last Taken Unknown] ciprofloxacin HCl 500 mg tablet (Cipro) 500 mg PO BID #14 tabs 03/25/22 [Rx Last Taken Unknown] clopidogrel 75 mg tablet (Plavix) 75 mg PO DAILY blood thinner 03/25/22 [History Last Taken Unknown] insulin glargine-yfgn 100 unit/mL (3 mL) subcutaneous pen 15 unit subcut BID diabetes 03/25/22 [History Last Taken Unknown] menthol 0.44 %-zinc oxide 20.6 % topical ointment (Calmoseptine) 1 applic topical BID skin breakdown 03/25/22 [History Last Taken Unknown] nystatin 100,000 unit/gram topical powder (Nyamyc) 1 applic topical BID moisture 03/25/22 [History Last Taken Unknown] tramadol 50 mg tablet 50 mg PO Q6H PRN PRN Pain Score 6-10 #20 tabs 03/25/22 [Rx Last Taken Unknown] Allergy/AdvReac Type Severity Reaction Status Date / Time oxycodone Allergy Other Verified 03/21/22 10:50 Family History Sister Diabetes Hypertension Father Hypertension Mother Cancer Surgical History History of adenoidectomy History of cholecystectomy History of eye surgery History of tonsillectomy Hx of foot operation Social History (Updated 03/25/22 @ 20:[address] Manan Negron MD) household members: family Smoking Status: Never smoker alcohol intake: never substance use type: does not use what type of physical activity do you participate in: none ROS Constitutional Constitutional: Denies chills, fever(s) or weight gain ENT HEENT: Denies headache(s), nasal congestion or nasal discharge Cardiovascular Cardiovascular: Denies chest pain or palpitations Respiratory/Chest Respiratory/Chest: Denies cough, excessive phlegm production or shortness of breath with exertion Gastrointestinal Gastrointestinal: Denies abdominal pain, nausea or vomiting Genitourinary Genitourinary: Denies dysuria Musculoskeletal Musculoskeletal: Denies joint pain or joint swelling Integumentary Integumentary: Denies rash or wounds Neurologic Neurologic: Denies focal weakness, numbness or tingling Psychiatric Psychiatric: Denies anxiety, auditory hallucinations, depression, homicidal ideation or suicidal ideation Vital Signs Vital Signs Vital Signs: 03/25/22 18:44 03/25/22 19:20 Temperature 99.5 F H Temperature Source Temporal Pulse Rate 90 Pulse Rhythm Regular Pulse Strength Normal (2+) Respiratory Rate 18 Respiratory Effort Normal Non-Labored Respiratory Depth Normal Respiratory Pattern Normal Blood Pressure 132/54 H Blood Pressure Mean 80 Blood Pressure Source Monitor Blood Pressure Position Semi-Fowlers Blood Pressure Location Right Arm Pulse Ox 94 Oxygen Delivery Method Room Air Room Air Weight Weight: 96.1 kg Body Mass Index (BMI) 35.2 Physical Exam Const alert General Appearance: cooperative HEENT normocephalic Eyes PERRL and EOMs intact bilaterally Neck supple, no JVD and no carotid bruits Resp normal respiratory effort, normal air movement and clear to auscultation bilaterally Cardio regular rate and regular rhythm GI normal to inspection, nondistended, normoactive bowel sounds, non-tender and non-distended Extremity normal capillary refill Extremity Narrative: Right foot dressed. General Extremity: Negative for edema Skin no rashes or lesions noted General Skin Exam: no breakdown Psych affect normal Appearance: appropriate Results Lab / Micro Data Result Diagrams: 03/26/22 05:34 03/26/22 05:34 Assessment & Plan Assessment/Plan (1) Debility: (2) History of Lisfranc amputation of right foot: (3) Acquired absence of other right toe(s): (4) Non-pressure chronic ulcer of other part of right foot with fat layer exposed: (5) Osteomyelitis of right foot: (6) Atherosclerosis of [place] arteries of extremities with gangrene, right leg: (7) Type 2 diabetes mellitus with diabetic polyneuropathy: QUALIFIERS: Diabetes mellitus group home insulin use: without group home use Qualified Code(s): E11.42 - Type 2 diabetes mellitus with diabetic polyneuropathy (8) Diabetic ulcer of foot associated with diabetes mellitus due to underlying condition, with fat layer exposed: (9) Hypertension: (10) Hyperlipidemia: (11) Iron deficiency anemia: (12) Peripheral arterial occlusive disease: PLAN: Plan 76 year old female with below past medical history significant for diabetes, osteomyelitis of right foot hospitalized for Lisfranc amputation of right foot 03/21/[address] Zuñiga, admitted to TCU with debility, here for rehabilitation, strengthening, prior to discharge home with family. * Debility - PT/OT. * Pain - Tylenol 1000mg q6h prn pain (1-3), Tramadol 50mg q6h prn pain (4-10). * Bowel - senna/colace 1 tablet bid, Dulcolax 10mg pr x1 prn, MOM 30ml po x 1 prn. * Adult immunization - Administer pneumonia vaccine, covid19 vaccine, flu vaccine as appropriate. * DVT prophylaxis - Hold, anemic, on dual antiplatelet therapy. * Hypertension - Lisinopril 5mg daily, Amlodipine 5mg daily. * Osteomyelitis right foot status post lisfranc amputation - Consult Dr. Zuñiga to follow, Augmentin 875mg bid, Cipro 500mg bid thru 04/02/22. * Iron deficiency anemia - Ferrous sulfate 325mg daily, Vitamin C 500mg daily. * Peripheral arterial occlusive disease - Aspirin 81mg daily, Plavix 75mg daily. * Hyperlipidemia - Atorvastatin 80mg qhs. * Nutrition - Glucerna Shake 120ml 4x/day, Pavel 1 packet bid, MVI daily. * Diabetes Mellitus II - Metformin 1000mg bidcm, Glargine 15 units bid. * Skin irritation - Calmoseptine topical bid. * Tinea Corporis - Nystatin powder topical bid. * Essential tremor - Propranolol 80mg daily prn.
--- NOTE | 2022-03-25 21:52 | PCA ---
Patient was checked at 2130 and was dry
[2022-03-25 21:55] LABS: Bedside Glucose 338 mg/dL (74-106)
[2022-03-25] MEDS: Acetaminophen 500 MG Tablet 1000 MG PO (22:16)
[2022-03-25] MEDS: Atorvastatin Calcium 80 MG Tablet PO (22:17)
[2022-03-25] MEDS: Senna/Docusate Sodium 1 Tablet PO (22:19)
[2022-03-25] MEDS: Insulin Glargine-YFGN 100 UNIT/ML Pen 15 UNIT SC (22:20)
--- NOTE | 2022-03-26 00:37 | PCA ---
patient was checked and dry
[2022-03-26] MEDS: 0.9% Saline Lock 10 ML Syringe IV (05:39)
[2022-03-26] MEDS: Nystatin Powder 15gm Bottle 1 APPLIC TOPICAL ×2 (05:42→18:02)
[2022-03-26] MEDS: Acetaminophen 500 MG Tablet 1000 MG PO ×3 (05:46→20:57)
[2022-03-26] MEDS: Menthol/Lanolin/Calamine/Znox 113 GM Tube 1 APPLIC TOPICAL ×2 (05:47→18:02)
[2022-03-26] MEDS: Ciprofloxacin 500 MG Tablet PO ×2 (05:48→17:55)
[2022-03-26] MEDS: amLODIPine 5 MG Tablet PO (05:48)
[2022-03-26] MEDS: Clopidogrel Bisulfate 75 MG Tablet PO (05:48)
[2022-03-26] MEDS: Senna/Docusate Sodium 1 Tablet PO (05:49)
[2022-03-26 06:05] LABS: Absolute Lymphocyte Count 2.99 X10^3/uL (0.83-4.51); Absolute Neutrophil Count 9.1 X10^3/uL (2.0-7.7); Basophil# 0.05 X10^3/uL; Basophil% 0.4 % (0-1); Eosinophil# 0.26 X10^3/uL; Eosinophils% 1.9 % (0-5); Hematocrit 24.9 % (37-47); Hemoglobin 7.6 g/dL (12.0-15.0); Lymphocyte # 2.99 X10^3/ul (0.83-4.51); Lymphocyte % 21.3 % (19-41); Mean Corp Hgb Conc 30.5 g/dL (32-36); Mean Corpuscular Hgb 27.7 pg (27.0-32.0); Mean Corpuscular Volume 90.9 fL (81-99); Mean Platelet Vol. 10.9 fl (6.2-12.0); Monocyte# 1.55 X10^3/uL; Monocyte% 11.1 % (0-10); NRBC Flagged by Analyzer 0 % (0-5); Neutrophil # 9.07 X10^3/uL (2.7-7.7); Neutrophil % 64.6 % (47-70); POSITIVE DIFFERENTIAL YES; Platelet Count 441 K/mm3 (150-450); RBC Distribution Width CV 16.9 % (11.6-14.6); RBC Distribution Width SD 55.8 fl (35.1-43.9); Red Blood Count 2.74 M/mm3 (4.2-5.4)
[2022-03-26 06:08] LABS: Differential Indicated SCAN CRITERIA MET
--- NOTE | 2022-03-26 06:17 | PCA ---
patient was checked @ 6:00 and was dry
[2022-03-26 06:26] LABS: Differential Comment SCANNED; Hypochromasia 1+
[2022-03-26 06:40] LABS: Bedside Glucose 264 mg/dL (74-106)
--- NOTE | 2022-03-26 06:42 | NURSING ---
Written communication left for Dr. Negron review this AM regarding patient elevated blood glucose level
[2022-03-26 07:45] LABS: Anion Gap 9 (5-15); BUN 32 mg/dL (7-18); BUN/Creat Ratio 26.7 RATIO (10-20); Calcium,Total 9.1 mg/dL (8.5-10.1); Chloride 105 mmol/L (98-107); EST Glomerular Filtration Rate 47 mL/min (>60); Est Glom Filt Rate - Afr Amer 56 mL/min (>60); Estimated Creatinine Clearance 37.01 ml/min; Glucose 290 mg/dL (74-106); Potassium 3.9 mmol/L (3.5-5.1); Sodium Level 138 mmol/L (136-145)
[2022-03-26] MEDS: Lisinopril 10 MG Tablet PO (08:12)
[2022-03-26] MEDS: Ferrous Sulfate 325 MG Tablet PO (08:12)
[2022-03-26] MEDS: Juven (unflavored) Packet 1 PACKET PO ×2 (08:12→17:54)
[2022-03-26] MEDS: Ascorbic Acid 500 MG Tablet PO (08:12)
[2022-03-26] MEDS: metFORMIN HCl 1,000 MG Tablet 1000 MG PO ×2 (08:13→17:55)
[2022-03-26] MEDS: Multivitamins,Therapeutic Tablet 1 TABLET PO (08:13)
[2022-03-26] MEDS: Insulin Glargine-YFGN 100 UNIT/ML Pen 15 UNIT SC (08:13)
[2022-03-26] MEDS: Aspirin 81 MG TAB.CHEW PO (08:13)
[2022-03-26] MEDS: Amox/Clavulanate 875 MG Tablet PO ×2 (08:13→17:54)
--- NOTE | 2022-03-26 08:43 | NURSING ---
dr Zuñiga consulted per order.
[2022-03-26] MEDS: Tuberculin,Purif.prot.deriv. 50 TU/ML Vial 0.1 ML ID (09:27)
--- NOTE | 2022-03-26 11:31 | PCM.PN.DRR ---
TCU RX Drug Regimen Review Subjective: TCU Admission. 76 YOF hospitalized for Lisfranc amputation of right foot 03/21/[address] Zuñiga. Admitted to TCU with debility for strengthening and rehabilitation. Objective: Allergies oxycodone Allergy (Verified 03/21/22 10:50) Other CAUSES PT TO HALLUCINATE Current Medications Generic Name Dose Route Start Last Admin Trade Name Freq PRN Reason Stop Dose Admin Acetaminophen 1,000 mg 03/25/22 20:40 03/26/22 05:46 Acetaminophen 500 Mg Tablet PO 1,000 mg Q6H PRN PRN Administration Pain Score 1-3 Amlodipine Besylate 5 mg 03/26/22 06:00 03/26/22 05:48 Amlodipine 5 Mg Tablet PO 5 mg DAILY [facility] Administration Amoxicillin/Clavulanate Potassium 875 mg 03/26/22 08:00 03/26/22 08:13 Amox/Clavulanate 875 Mg Tablet PO 04/02/22 08:[facility] Ascorbic Acid 500 mg 03/26/22 08:00 03/26/22 08:12 Ascorbic Acid 500 Mg Tablet PO 500 mg DAILYCM [facility] Administration Aspirin 81 mg 03/26/22 08:00 03/26/22 08:13 Aspirin 81 Mg Tab.Chew PO 81 mg DAILYCM [facility] Administration Atorvastatin Calcium 80 mg 03/25/22 22:00 03/25/22 22:17 Atorvastatin Calcium 80 Mg Tablet PO 80 mg QHS [facility] Administration Bisacodyl 10 mg 03/25/22 20:39 Bisacodyl 10 Mg Suppository RC X1 PRN CONSTIPATION Calamine/Phenol 1 applic 03/26/22 06:00 03/26/22 05:47 Menthol/Lanolin/Calamine/Znox 113 Gm Tube TOPICAL 1 applic BID [facility] Administration Protocol Ciprofloxacin HCl 500 mg 03/26/22 06:00 03/26/22 05:48 Ciprofloxacin 500 Mg Tablet PO 04/02/22 23:59 500 mg BID [facility] Administration Clopidogrel Bisulfate 75 mg 03/26/22 06:00 03/26/22 05:48 Clopidogrel Bisulfate 75 Mg Tablet PO 75 mg DAILY [facility] Administration Ferrous Sulfate 325 mg 03/26/22 08:00 03/26/22 08:12 Ferrous Sulfate 325 Mg Tablet PO 325 mg DAILYCM [facility] Administration Insulin Glargine 20 unit 03/26/22 22:00 Insulin Glargine-Yfgn 100 Unit/Ml Pen SC BID@0800,2200 [facility] Insulin Human Lispro 13 unit 03/26/22 11:45 Insulin Lispro 100 Unit/Ml Insuln.Pen SC TIDAC [facility] L-Arginine/L-Glutamine/Calcium HMB 1 packet 03/26/22 08:00 03/26/22 08:12 Pavel (Unflavored) Packet PO 1 packet BIDCM [facility] Administration Lisinopril 10 mg 03/26/22 08:00 03/26/22 08:12 Lisinopril 10 Mg Tablet PO 10 mg DAILY@0800 [facility] Administration Magnesium Hydroxide 30 ml 03/25/22 20:39 Magnesium Hydroxide 30 Ml Udc PO X1 PRN Constipation Metformin HCl 1,000 mg 03/26/22 08:00 03/26/22 08:13 Metformin Hcl 1,000 Mg Tablet PO 1,000 mg BIDCM [facility] Administration Multivitamins 1 tablet 03/26/22 08:00 03/26/22 08:13 Multivitamins,Therapeutic Tablet [facility] Administration Nutritional Formula (Lactose Free) 120 ml 03/25/22 22:00 03/26/22 08:09 Glucerna Shake 120 Ml Liquid PO Not Given 4X/DAY [facility] Nystatin 1 applic 03/26/22 06:00 03/26/22 05:42 Nystatin Powder 15gm Bottle TOPICAL 1 applic BID [facility] Administration Protocol Propranolol HCl 80 mg 03/25/22 18:53 Propranolol La 80 Mg Capsule PO DAILY PRN tremors Senna/Docusate Sodium 1 tablet 03/25/22 20:45 03/26/22 05:49 Senna/Docusate Sodium 1 Tablet PO 1 tablet BID [facility] Administration Sodium Chloride 10 - 40 ml 03/25/22 19:17 03/26/22 05:39 0.9% Saline Lock 10 Ml Syringe IV 10 ml UD PRN Administration SALINE FLUSH Tramadol HCl 50 mg 03/25/22 20:41 Tramadol 50 Mg Tablet PO Q6H PRN Pain Score 4-10 Tuberculin PPD 0.1 ml 04/02/22 10:00 Tuberculin,Purif.Prot.Deriv. 50 Tu/Ml Vial ID 04/02/22 10:01 X1 ONE Problem List (Last Reviewed 03/25/22 @ 20:[address] Manan Negron MD) Peripheral arterial occlusive disease (Acute) Iron deficiency anemia (Acute) Hyperlipidemia (Acute) Hypertension (Chronic) Debility (Acute) History of Lisfranc amputation of right foot (Acute) Acquired absence of other right toe(s) (Acute) Non-pressure chronic ulcer of other part of right foot with fat layer exposed (Chronic) Osteomyelitis of right foot (Acute) Atherosclerosis of [place] arteries of extremities with gangrene, right leg (Chronic) Type 2 diabetes mellitus with diabetic polyneuropathy (Chronic) Diabetic ulcer of foot associated with diabetes mellitus due to underlying condition, with fat layer exposed (Acute) Vital Signs Temp Pulse Resp BP Pulse Ox O2 Del Method 99.5 F H 90 18 132/54 H 94 Room Air 03/25/22 19:20 03/25/22 19:20 03/25/22 19:20 03/25/22 19:20 03/25/22 19:20 03/25/22 19:20 Oxygen Delivery Method Room Air Weight: 96.1 kg Body Mass Index (BMI) 35.2 Sodium 138 mmol/L (136-145) 03/26/22 05:34 Potassium 3.9 mmol/L (3.5-5.1) 03/26/22 05:34 Chloride 105 mmol/L (98-107) 03/26/22 05:34 Carbon Dioxide 24.0 mmol/L (21.0-32.0) 03/26/22 05:34 Anion Gap 9 (5-15) 03/26/22 05:34 BUN 32 mg/dL (7-18) H 03/26/22 05:34 Creatinine 1.20 mg/dL (0.55-1.02) H 03/26/22 05:34 Est GFR (MDRD) Af Amer 56 mL/min (>60) L 03/26/22 05:34 Est GFR (MDRD) Non-Af 47 mL/min (>60) L 03/26/22 05:34 BUN/Creatinine Ratio 26.7 RATIO (10-20) H 03/26/22 05:34 Glucose 290 mg/dL (74-106) H 03/26/22 05:34 Assessment/Plan: 1. Pain: acetaminophen 1000mg PO Q6H PRN pain 1-3 and tramadol 50mg PO Q6H PRN pain 4-10. Resident has had 2 doses of acetaminophen for pain of 3 and 6 in the foot. Has not had any tramadol. Please continue to monitor for increased pain and PRN usage. 2. Bowel: senna/docusate 1T PO BID, bisacodyl 10mg RC x1 PRN constipation and MOM 30mL PO x1 PRN constipation. Resident has not had any PRN doses. Please continue to monitor for constipation and PRN usage. Last documented bowel movement 03/24. 3. Osteomyelitis R foot s/p lisfranc amputation: Augmentin 875mg PO BID and ciprofloxacin 500mg PO BID both thru 04/02/22. Please continue to monitor for S/S of infection, renal function, diarrhea and tendon pain. 4. Hypertension: lisinopril 10mg PO daily and amlodipine 5mg PO daily. Please continue to monitor BP (last 132/54), potassium (last 3.9mmol/L), cough, renal function and swelling. 5. Iron deficiency anemia: ferrous sulfate 325mg PO daily and ascorbic acid 500mg PO daily. Please continue to monitor hemoglobin (last 7.6g/dL), dark stools and constipation. 6. Peripheral arterial occlusive disease: aspirin 81mg PO daily and clopidogrel 75mg PO daily. Please continue to monitor for S/S of bleeding and hemoglobin. 7. Hyperlipidemia: atorvastatin 80mg PO QHS. Please consider ordering a lipid panel if clinically appropriate. Resident does not have a lipid panel in the chart. Thanks. Please continue to monitor LFTs (last 01/31/22) and muscle pain. 8. Diabetes Mellitus II: metformin 1000mg PO BIDCM, insulin glargine 20units SC BID and insulin lispro 13units SC TIDAC. Please continue to monitor renal function, diarrhea, S/S of hypoglycemia, hemoglobin A1c (last 7.6% 03/05/22), and glucose (last 264mg/dL). Insulin glargine increased this morning and insulin lispro added. 9. Essential tremor: propranolol LA 80mg PO daily PRN tremor. Resident has not had any doses so far. Please continue to monitor for tremor and PRN usage. 10. Nutrition: multivitamin 1T PO daily. Please continue to monitor. Assessment/Plan for indications treated with psychotropic medications: None Medical chart and medication regimen reviewed. The following medication irregularities or issues were identified: *1. Atorvastatin 80mg PO QHS. Please consider ordering a lipid panel if clinically appropriate. Resident does not have a lipid panel in the chart. Thanks. Date of Note:: 03/26/22
--- NOTE | 2022-03-26 12:32 | NURSING ---
Technical Sales Representative Note; Activity Asset: Italia Bermudez is independent in her choice of daily activities. Her family will visit daily and when not e her she asked for word puzzles and the newspaper to read. She has plenty of magazines and her family will bring in other items she wishes for.
[2022-03-26] MEDS: Insulin Lispro 100 UNIT/ML INSULN.PEN 13 UNIT SC ×2 (12:39→17:55)
[2022-03-26] MEDS: Glucerna Shake 120 ML LIQUID PO ×3 (12:41→20:58)
[2022-03-26 12:54] LABS: Pathologist Review Reviewed
--- NOTE | 2022-03-26 14:09 | CASEMGMT ---
Social Work Met with patient to complete initial assessment. Introduced self and role. Two daughter's present for assessment. Pt granted permission to complete assessment. Discussed code status and MOLST form. Pt confirmed full code. MOLST placed in Dr folder. Pt aware of [employer] coverage. Pt lives at home with , who has Dementia, two daughter's - Pao and Roseanna, and son, Cyrus. Pt has 8 children and two sisters that provide support at home. Pt's goal is to return home. SW to continue to follow for DC planning. Sakshi Espino ,C[employer] INSPECTOR DRAW [employer]
[2022-03-26 16:00] VITALS: BP 132/63; PULSE 87; RESP 16; TEMP 36.4
[2022-03-26] MEDS: traMADol 50 MG Tablet PO (16:53)
--- NOTE | 2022-03-26 17:55 | PCM.CONS.GEN ---
Assessment & Plan Assessment/Plan (1) Obesity (BMI 30-39.9): (2) Type 2 diabetes mellitus with diabetic polyneuropathy: QUALIFIERS: Diabetes mellitus intermediate project manager insulin use: without intermediate project manager use Qualified Code(s): E11.42 - Type 2 diabetes mellitus with diabetic polyneuropathy (3) Atherosclerosis of [place] arteries of extremities with gangrene, right leg: (4) History of Lisfranc amputation of right foot: (5) Iron deficiency anemia: (6) Debility: PLAN: Plan Patient seen and evaluated Patient had undergone Lisfranc amputation of the right foot. DOS 03/21/2022. POD #5 She is admitted to transitional care unit to build strength and rehabilitation prior to being discharged home as well as remaining compliant with postoperative instructions and strict nonweightbearing status. Surgery 03/21/2022: During the debridement the remaining tissue was noted to be healthy and the remaining bone noted to be of good color and quality. Prior to closure site was irrigated with copious amounts of normal sterile saline, Irrisept, and 1 g of vancomycin powder was placed prior to closure. Surgical cultures from 03/21/2022: Cultures at time of surgery for both tissue and bone of the fourth metatarsal demonstrate PsA, Proteus, and E faecalis. ID recommending 1 week oral antibiotic ciprofloxacin and Augmentin. Today dressings were taken down and the distal amputation stump of the right foot is noted to have intact sutures with no signs of infection. She does have some postoperative stump edema with 1 stitch at the dorsal lateral aspect of the foot popped. There is adequate perfusion noted to the distal stump of the Lisfranc amputation site. Skin flap appears healthy in coloration with adequate perfusion. Dressings changed today consisting of Betadine soaked Adaptic, 4 x 4 gauze, ABD x2, Kerlix, and a 6 inch Didier wrap rolled onto the right foot. Patient to continue to elevate lower extremity at all times of rest to control postoperative edema. Discussed with her today that she has popped 1 stitch at the dorsal lateral aspect of the incision stump and needs to be mindful of her edema. Reminded her again that even though therapy is working with her for her strength and rehabilitation that she is to maintain a strict nonweightbearing status to the right lower extremity. I have discussed with her and family today that if she continues to rupture more stitches or becomes infected or the amputation and flap fail that she may require a below the knee amputation. Patient and family voiced understanding of our discussion. Encourage protein diet with Pavel supplementation to aid healing. Also encouraged continued diabetic diet to maintain adequate control of sugars to aid healing. Wound nurse has been consulted for aid in dressing changes. Dressings to be changed every other day. I will continue to follow for postoperative management. Please not hesitate to call for any questions or concerns Jr. Konstantin GuerreroPWandy. Foot [facility] ankle [facility] [phone] Note: [email or web address] speech recognition utilities estimator and drafter software was used to create portions of this document. Sound-alike and misspelled words, as well as other utilities estimator and drafter errors may be contained in the documentation. HPI Consult Data Date of Consult: 03/26/22 HPI Narrative Reason for Consultation: Post-operative LisFranc Amputation HPI Narrative: LUC HODGES, is a 76 F who presents to [facility] on 03/21/2022 for a scheduled debridement of the right foot with amputation of the partial fourth ray. Due to extensive tissue necrosis and inadequate soft tissue coverage patient subsequently underwent Lisfranc amputation of the right foot. Patient was followed in the postoperative period while still admitted to the floor. During postoperative visits stump was noted to be well-perfused with a healthy and viable soft tissue flap. Patient was then transferred to transitional care unit to undergo rehabilitation and build strength as well as remaining compliant with the strict nonweightbearing status to the right lower extremity and other postoperative instructions. She was consulted to podiatry for continued follow and her postoperative status. [facility] Medical History Cardiology follow-up encounter Chronic ulcer of great toe of right foot with necrosis of muscle CKD stage 2 due to type 2 diabetes mellitus Delayed wound healing Diabetes Diabetes mellitus with diabetic polyneuropathy Diabetic ulcer of left foot with fat layer exposed Dietary restriction History of amputation of toe History of stress test Hyperglycemia due to type 2 diabetes mellitus Hypertension Incomplete left bundle branch block Insulin dependent diabetes mellitus Lesion of lumbar spine Low iron Non-smoker Normocytic anemia Redness of skin Spinal stenosis, lumbar SVT (supraventricular tachycardia) Type 2 diabetes mellitus Type 2 diabetes mellitus with foot ulcer Ulcer of right foot with fat layer exposed Vitreous hemorrhage of left eye Wears dentures Wears glasses Home Medications acetaminophen 325 mg tablet (Tylenol) 650 mg PO Q6H PRN PRN Pain 1-10 Or Fever #0 tabs 11/13/21 [Rx Last Taken Unknown] ascorbic acid (vitamin C) 500 mg tablet (Vitamin C) 500 mg PO DAILY SUPPLEMENT 01/13/22 [History Last Taken 01/27/22] lisinopril 10 mg tablet 10 mg PO DAILY BP 01/28/22 [History Last Taken 03/21/22] metformin 1,000 mg tablet 1,000 mg PO BID BLOOD SUGAR 01/28/22 [History Last Taken 02/19/22] multivitamin 1 tab PO DAILY SUPPLEMENT 01/28/22 [History Last Taken 01/27/22] propranolol 80 mg capsule,24 hr,extended release 80 mg PO DAILY PRN tremors 01/28/22 [History Last Taken 03/21/22] ferrous sulfate 325 mg (65 mg iron) tablet 325 mg PO DAILY ANEMIA #90 tabs 03/05/22 [Rx Last Taken Unknown] amlodipine 5 mg tablet 5 mg PO DAILY BP 03/14/22 [History Last Taken 03/21/22] aspirin 81 mg capsule 81 mg PO DAILY heart 03/14/22 [History Last Taken Unknown] tramadol 50 mg tablet 50 mg PO Q6H PRN pain 7 days #28 tabs 03/21/22 [Rx Last Taken Unknown] amoxicillin 875 mg-potassium clavulanate 125 mg tablet 1 tab PO BID #14 tabs 03/25/22 [Rx Last Taken Unknown] amoxicillin 875 mg-potassium clavulanate 125 mg tablet 875 mg PO BID antibiotic 03/25/22 [History Last Taken Unknown] atorvastatin 80 mg tablet 80 mg PO DAILY cholesterol 03/25/22 [History Last Taken Unknown] ciprofloxacin HCl 500 mg tablet 500 mg PO BID infection 03/25/22 [History Last Taken Unknown] ciprofloxacin HCl 500 mg tablet (Cipro) 500 mg PO BID #14 tabs 03/25/22 [Rx Last Taken Unknown] clopidogrel 75 mg tablet (Plavix) 75 mg PO DAILY blood thinner 03/25/22 [History Last Taken Unknown] insulin glargine-yfgn 100 unit/mL (3 mL) subcutaneous pen 15 unit subcut BID diabetes 03/25/22 [History Last Taken Unknown] menthol 0.44 %-zinc oxide 20.6 % topical ointment (Calmoseptine) 1 applic topical BID skin breakdown 03/25/22 [History Last Taken Unknown] nystatin 100,000 unit/gram topical powder (Nyamyc) 1 applic topical BID moisture 03/25/22 [History Last Taken Unknown] tramadol 50 mg tablet 50 mg PO Q6H PRN PRN Pain Score 6-10 #20 tabs 03/25/22 [Rx Last Taken Unknown] Allergy/AdvReac Type Severity Reaction Status Date / Time oxycodone Allergy Other Verified 03/21/22 10:50 Family History Sister Diabetes Hypertension Father Hypertension Mother Cancer Surgical History History of adenoidectomy History of cholecystectomy History of eye surgery History of tonsillectomy Hx of foot operation Social History (Updated 03/25/22 @ 20:[address] Manan Negron MD) household members: family Smoking Status: Never smoker alcohol intake: never substance use type: does not use what type of physical activity do you participate in: none Physical Exam Const alert, oriented x3, no apparent distress and well nourished General Appearance: cooperative HEENT normocephalic Eyes General Eye: normal appearance of both eyes Neck General: normal visual inspection Lymph Lymphatic: no lymphadenopathy noted and no lymphedema noted Resp normal respiratory effort Cardio regular rate and regular rhythm Extremity normal capillary refill, no joint enlargement, no calf tenderness and no pedal edema Extremity Narrative: Right lower extremity Lisfranc amputation noted with intact sutures. Distal stump appears healthy and well perfused. No signs of infection. Skin no rashes or lesions noted, skin turgor normal and no jaundice Neuro moves all extremities Lab / Micro Data Result Diagrams: 03/26/22 05:34 03/26/22 05:34 Labs: Laboratory Results - last 24 hr 03/25/22 21:37: POC Glucose 338 H 03/26/22 05:34: WBC 14.0 H, RBC 2.74 L, Hgb 7.6 L, Hct 24.9 L, MCV 90.9, MCH 27.7, MCHC 30.5 L, RDW Std Deviation 55.8 H, RDW Coeff of Bety 16.9 H, Plt Count 441, MPV 10.9, Immature Gran % (Auto) 0.700, Neut % (Auto) 64.6, Lymph % (Auto) 21.3, [place] % (Auto) 11.1 H, Eos % (Auto) 1.9, Baso % (Auto) 0.4, Absolute Neuts (auto) 9.1 H, Absolute Lymphs (auto) 2.99, Nucleated RBC % 0, Differential Comment SCANNED, Diff Path Review Reviewed, Hypochromasia 1+ 03/26/22 05:34: Sodium 138, Potassium 3.9, Chloride 105, Carbon Dioxide 24.0, Anion Gap 9, BUN 32 H, Creatinine 1.20 H, Estim Creat Clear Calc 37.01, Est GFR (MDRD) Af Amer 56 L, Est GFR (MDRD) Non-Af 47 L, BUN/Creatinine Ratio 26.7 H, Glucose 290 H, Calcium 9.1 03/26/22 06:06: POC Glucose 264 H
[2022-03-26 18:10] LABS: Bedside Glucose 323 mg/dL (74-106)
[2022-03-26 18:10] LABS: Bedside Glucose 348 mg/dL (74-106)
[2022-03-26] MEDS: Atorvastatin Calcium 80 MG Tablet PO (20:58)
[2022-03-26] MEDS: Insulin Glargine-YFGN 100 UNIT/ML Pen 20 UNIT SC (21:27)
[2022-03-26 22:00] LABS: Bedside Glucose 226 mg/dL (74-106)
[2022-03-27 04:55] VITALS: BP 135/54; PULSE 80
[2022-03-27] MEDS: amLODIPine 5 MG Tablet PO (04:56)
[2022-03-27] MEDS: Menthol/Lanolin/Calamine/Znox 113 GM Tube 1 APPLIC TOPICAL ×2 (04:56→17:59)
[2022-03-27] MEDS: Clopidogrel Bisulfate 75 MG Tablet PO (04:57)
[2022-03-27] MEDS: Senna/Docusate Sodium 1 Tablet PO ×2 (04:57→18:00)
[2022-03-27] MEDS: Nystatin Powder 15gm Bottle 1 APPLIC TOPICAL ×2 (04:57→18:00)
[2022-03-27] MEDS: Ciprofloxacin 500 MG Tablet PO ×2 (04:57→17:59)
[2022-03-27] MEDS: traMADol 50 MG Tablet PO (04:58)
[2022-03-27 06:40] LABS: Bedside Glucose 241 mg/dL (74-106)
[2022-03-27] MEDS: Amox/Clavulanate 875 MG Tablet PO ×2 (07:52→17:59)
[2022-03-27] MEDS: Multivitamins,Therapeutic Tablet 1 TABLET PO (07:52)
[2022-03-27] MEDS: Lisinopril 10 MG Tablet PO (07:52)
[2022-03-27] MEDS: Aspirin 81 MG TAB.CHEW PO (07:52)
[2022-03-27] MEDS: Ferrous Sulfate 325 MG Tablet PO (07:52)
[2022-03-27] MEDS: Juven (unflavored) Packet 1 PACKET PO ×2 (07:52→17:59)
[2022-03-27] MEDS: Insulin Lispro 100 UNIT/ML INSULN.PEN 13 UNIT SC (07:53)
[2022-03-27] MEDS: Insulin Glargine-YFGN 100 UNIT/ML Pen 20 UNIT SC ×2 (07:53→21:37)
[2022-03-27] MEDS: Ascorbic Acid 500 MG Tablet PO (07:54)
[2022-03-27] MEDS: metFORMIN HCl 1,000 MG Tablet 1000 MG PO ×2 (07:54→17:59)
[2022-03-27 08:06] VITALS: BP 119/72; PULSE 89
[2022-03-27 09:55] VITALS: PULSE 89; O2SAT 95
--- NOTE | 2022-03-27 10:47 | WOUNDNOTE ---
Dr Zuñiga changed dressing to the right foot yesterday. dressing is ordered for every other day. this nurse will change dressing tomorrow as ordered.
[2022-03-27 11:36] LABS: Bedside Glucose 202 mg/dL (74-106)
[2022-03-27] MEDS: Glucerna Shake 120 ML LIQUID PO ×3 (12:02→20:11)
[2022-03-27] MEDS: Insulin Lispro 100 UNIT/ML INSULN.PEN 17 UNIT SC (12:03)
[2022-03-27] MEDS: Acetaminophen 500 MG Tablet 1000 MG PO (12:06)
[2022-03-27 13:32] VITALS: BP 103/40; PULSE 87; RESP 17; TEMP 36.2; O2SAT 97
--- NOTE | 2022-03-27 13:45 | CHAPLAIN ---
Type of Pastoral Visit _x__ Initial Visit ___ Follow-up Visit ___ On-call Visit ___ General Patient Visit ___ Spiritual Assessment ___ Family Conference ___ Bereavement ___ Rapid Response ___ Code Blue ___ Other (describe below) Pastoral Care Referral From ___ Patient ___ Family _x__ Nurse ___ Physician ___ Insulation Foreman ___ Digging Machine Operator ___ Other (describe below) Sacrament/Intervention _x__ Active listening ___ Anointing ___ Moravian _x__ Bereavement ___ Communion ___ Coreen exploration ___ ___ Life review _x__ Prayer ___ Reconciliation ___ Sacrament of Sick ___ Supportive presence ___ Wedding ___ Other (describe below) Pastoral Comments met with patient and her daughter and explained role of facilities operations technician; pt states that she is doing well and encouraged by her progress; pt discusses her daughter's in January from cancer; grief explored; patient states that she is handling her situation very well; other daughter participates in the discussion; prayer is welcomed
[2022-03-27 16:56] LABS: Bedside Glucose 98 mg/dL (74-106)
[2022-03-27] MEDS: Atorvastatin Calcium 80 MG Tablet PO (20:11)
[2022-03-27 21:30] LABS: Bedside Glucose 183 mg/dL (74-106)
[2022-03-28] MEDS: Senna/Docusate Sodium 1 Tablet PO ×2 (05:17→17:37)
[2022-03-28] MEDS: Clopidogrel Bisulfate 75 MG Tablet PO (05:17)
[2022-03-28] MEDS: Ciprofloxacin 500 MG Tablet PO ×2 (05:17→17:37)
[2022-03-28] MEDS: traMADol 50 MG Tablet PO (05:17)
[2022-03-28] MEDS: amLODIPine 5 MG Tablet PO (05:17)
[2022-03-28] MEDS: Nystatin Powder 15gm Bottle 1 APPLIC TOPICAL ×2 (05:18→17:37)
[2022-03-28] MEDS: Menthol/Lanolin/Calamine/Znox 113 GM Tube 1 APPLIC TOPICAL ×2 (05:18→17:38)
[2022-03-28] MEDS: Glucerna Shake 120 ML LIQUID PO ×3 (05:20→17:37)
[2022-03-28 06:41] LABS: Bedside Glucose 142 mg/dL (74-106)
--- NOTE | 2022-03-28 08:05 | PT ---
Patient is now a sabina transfer for all staff transfers. Pt will continue to trial pivot disc with therapy only. Pt is not to perform modified toilet transfers or use pivot disc to use BSC at this time, due to inability to safely transfer and maintain NWB on RLE with staff.
[2022-03-28] MEDS: Insulin Glargine-YFGN 100 UNIT/ML Pen 20 UNIT SC ×2 (08:49→22:59)
[2022-03-28] MEDS: Juven (unflavored) Packet 1 PACKET PO ×2 (08:49→17:37)
[2022-03-28] MEDS: Lisinopril 10 MG Tablet PO (08:49)
[2022-03-28] MEDS: Ferrous Sulfate 325 MG Tablet PO (08:49)
[2022-03-28] MEDS: metFORMIN HCl 1,000 MG Tablet 1000 MG PO ×2 (08:49→17:37)
[2022-03-28] MEDS: Aspirin 81 MG TAB.CHEW PO (08:49)
[2022-03-28] MEDS: Multivitamins,Therapeutic Tablet 1 TABLET PO (08:49)
[2022-03-28] MEDS: Amox/Clavulanate 875 MG Tablet PO ×2 (08:49→17:37)
[2022-03-28] MEDS: Insulin Lispro 100 UNIT/ML INSULN.PEN 13 UNIT SC ×2 (08:50→11:45)
[2022-03-28] MEDS: Ascorbic Acid 500 MG Tablet PO (08:50)
[2022-03-28 09:04] VITALS: BP 114/50; PULSE 94
[2022-03-28 11:25] LABS: Bedside Glucose 167 mg/dL (74-106)
[2022-03-28] MEDS: Acetaminophen 500 MG Tablet 1000 MG PO (13:54)
--- NOTE | 2022-03-28 14:48 | WOUNDNOTE ---
wound photo: right foot
--- NOTE | 2022-03-28 14:48 | WOUNDNOTE ---
wound photo: right foot
[2022-03-28 16:00] VITALS: BP 149/58; PULSE 91; RESP 18; TEMP 36.4; O2SAT 96
[2022-03-28 17:16] LABS: Bedside Glucose 97 mg/dL (74-106)
[2022-03-28 21:56] LABS: Bedside Glucose 192 mg/dL (74-106)
[2022-03-28 22:35] VITALS: PULSE 83; RESP 16; O2SAT 94
[2022-03-28] MEDS: Atorvastatin Calcium 80 MG Tablet PO (23:00)
[2022-03-29] MEDS: Senna/Docusate Sodium 1 Tablet PO ×2 (06:02→17:56)
[2022-03-29] MEDS: Clopidogrel Bisulfate 75 MG Tablet PO (06:02)
[2022-03-29] MEDS: amLODIPine 5 MG Tablet PO (06:03)
[2022-03-29] MEDS: Ciprofloxacin 500 MG Tablet PO ×2 (06:03→17:56)
[2022-03-29] MEDS: Nystatin Powder 15gm Bottle 1 APPLIC TOPICAL ×2 (06:12→18:05)
[2022-03-29] MEDS: Menthol/Lanolin/Calamine/Znox 113 GM Tube 1 APPLIC TOPICAL ×2 (06:13→18:06)
[2022-03-29 06:31] LABS: Bedside Glucose 161 mg/dL (74-106)
[2022-03-29] MEDS: Insulin Lispro 100 UNIT/ML INSULN.PEN 13 UNIT SC ×3 (08:32→17:54)
[2022-03-29] MEDS: Aspirin 81 MG TAB.CHEW PO (08:33)
[2022-03-29] MEDS: Insulin Glargine-YFGN 100 UNIT/ML Pen 20 UNIT SC ×2 (08:34→21:37)
[2022-03-29] MEDS: Ferrous Sulfate 325 MG Tablet PO (08:34)
[2022-03-29] MEDS: Juven (unflavored) Packet 1 PACKET PO ×2 (08:34→17:56)
[2022-03-29] MEDS: metFORMIN HCl 1,000 MG Tablet 1000 MG PO ×2 (08:34→17:56)
[2022-03-29] MEDS: Ascorbic Acid 500 MG Tablet PO (08:35)
[2022-03-29] MEDS: Multivitamins,Therapeutic Tablet 1 TABLET PO (08:35)
[2022-03-29] MEDS: Amox/Clavulanate 875 MG Tablet PO ×2 (08:36→17:55)
[2022-03-29] MEDS: Lisinopril 10 MG Tablet PO (08:36)
[2022-03-29] MEDS: Glucerna Shake 120 ML LIQUID PO ×3 (12:09→21:36)
[2022-03-29 12:31] LABS: Bedside Glucose 189 mg/dL (74-106)
[2022-03-29 15:54] VITALS: BP 120/52; PULSE 78; RESP 14; TEMP 36.8; O2SAT 98
[2022-03-29 17:10] LABS: Bedside Glucose 99 mg/dL (74-106)
[2022-03-29] MEDS: Atorvastatin Calcium 80 MG Tablet PO (21:38)
[2022-03-29 22:06] LABS: Bedside Glucose 119 mg/dL (74-106)
[2022-03-30] MEDS: Menthol/Lanolin/Calamine/Znox 113 GM Tube 1 APPLIC TOPICAL ×2 (06:09→17:43)
[2022-03-30] MEDS: Clopidogrel Bisulfate 75 MG Tablet PO (06:09)
[2022-03-30] MEDS: Ciprofloxacin 500 MG Tablet PO ×2 (06:09→17:27)
[2022-03-30] MEDS: Senna/Docusate Sodium 1 Tablet PO ×2 (06:09→17:27)
[2022-03-30] MEDS: Glucerna Shake 120 ML LIQUID PO ×4 (06:09→22:18)
[2022-03-30] MEDS: Nystatin Powder 15gm Bottle 1 APPLIC TOPICAL ×2 (06:10→17:44)
[2022-03-30] MEDS: amLODIPine 5 MG Tablet PO (06:10)
[2022-03-30 06:35] LABS: Bedside Glucose 142 mg/dL (74-106)
[2022-03-30] MEDS: Insulin Lispro 100 UNIT/ML INSULN.PEN 13 UNIT SC ×2 (08:46→12:57)
[2022-03-30] MEDS: Amox/Clavulanate 875 MG Tablet PO ×2 (08:47→17:28)
[2022-03-30] MEDS: Ferrous Sulfate 325 MG Tablet PO (08:47)
[2022-03-30] MEDS: Aspirin 81 MG TAB.CHEW PO (08:47)
[2022-03-30] MEDS: Multivitamins,Therapeutic Tablet 1 TABLET PO (08:47)
[2022-03-30] MEDS: metFORMIN HCl 1,000 MG Tablet 1000 MG PO (08:47)
[2022-03-30] MEDS: Ascorbic Acid 500 MG Tablet PO (08:47)
[2022-03-30] MEDS: Insulin Glargine-YFGN 100 UNIT/ML Pen 20 UNIT SC ×2 (08:48→22:21)
[2022-03-30] MEDS: Lisinopril 10 MG Tablet PO (08:48)
[2022-03-30] MEDS: Juven (unflavored) Packet 1 PACKET PO ×2 (08:49→17:27)
[2022-03-30] MEDS: traMADol 50 MG Tablet PO ×2 (09:05→15:12)
[2022-03-30] MEDS: Acetaminophen 500 MG Tablet 1000 MG PO (10:21)
[2022-03-30 11:40] LABS: Bedside Glucose 128 mg/dL (74-106)
[2022-03-30 11:46] LABS: Hematocrit 26.5 % (37-47); Hemoglobin 8.1 g/dL (12.0-15.0)
[2022-03-30 14:43] VITALS: BP 100/45; PULSE 89; RESP 16; TEMP 36.1; O2SAT 95
[2022-03-30 17:06] LABS: Bedside Glucose 58 mg/dL (74-106)
[2022-03-30 17:15] LABS: Bedside Glucose 59 mg/dL (74-106)
[2022-03-30 18:01] LABS: Bedside Glucose 81 mg/dL (74-106)
[2022-03-30 18:56] LABS: Bedside Glucose 115 mg/dL (74-106)
[2022-03-30 21:41] LABS: Bedside Glucose 191 mg/dL (74-106)
[2022-03-30] MEDS: Atorvastatin Calcium 80 MG Tablet PO (22:19)
[2022-03-31] MEDS: Glucerna Shake 120 ML LIQUID PO ×4 (06:34→21:50)
[2022-03-31 06:35] LABS: Bedside Glucose 237 mg/dL (74-106)
[2022-03-31] MEDS: Ciprofloxacin 500 MG Tablet PO ×2 (06:36→18:08)
[2022-03-31] MEDS: Senna/Docusate Sodium 1 Tablet PO ×2 (06:36→18:09)
[2022-03-31] MEDS: amLODIPine 5 MG Tablet PO (06:36)
[2022-03-31] MEDS: Menthol/Lanolin/Calamine/Znox 113 GM Tube 1 APPLIC TOPICAL ×2 (06:36→18:11)
[2022-03-31] MEDS: Clopidogrel Bisulfate 75 MG Tablet PO (06:36)
[2022-03-31] MEDS: Nystatin Powder 15gm Bottle 1 APPLIC TOPICAL ×2 (06:37→18:11)
[2022-03-31 06:42] VITALS: BP 114/53; PULSE 85
[2022-03-31 08:25] VITALS: BP 121/58; PULSE 89
[2022-03-31] MEDS: Insulin Lispro 100 UNIT/ML INSULN.PEN 13 UNIT SC ×2 (08:26→12:13)
[2022-03-31] MEDS: Insulin Glargine-YFGN 100 UNIT/ML Pen 20 UNIT SC ×2 (08:27→21:52)
[2022-03-31] MEDS: metFORMIN HCl 1,000 MG Tablet 1000 MG PO ×2 (08:29→18:07)
[2022-03-31] MEDS: Amox/Clavulanate 875 MG Tablet PO ×2 (08:29→18:08)
[2022-03-31] MEDS: Aspirin 81 MG TAB.CHEW PO (08:29)
[2022-03-31] MEDS: Multivitamins,Therapeutic Tablet 1 TABLET PO (08:30)
[2022-03-31] MEDS: Ascorbic Acid 500 MG Tablet PO (08:30)
[2022-03-31] MEDS: Ferrous Sulfate 325 MG Tablet PO (08:30)
[2022-03-31] MEDS: Juven (unflavored) Packet 1 PACKET PO ×2 (08:30→18:08)
[2022-03-31] MEDS: Lisinopril 10 MG Tablet PO (08:30)
--- NOTE | 2022-03-31 10:24 | WOUNDNOTE ---
Dressing changed yesterday to the right foot. this nurse will change dressing tomorrow.
[2022-03-31 11:40] LABS: Bedside Glucose 215 mg/dL (74-106)
[2022-03-31 11:41] VITALS: PULSE 97; RESP 16; O2SAT 97
--- NOTE | 2022-03-31 12:13 | PN_ITS ---
Subjective Subjective Patient seen sitting at bedside in chair with feet elevated. She states therapy is continuing to work with her. She denies any constitutional symptoms. States that the amputation site still does have some soreness when pressed upon. Denies any further complaints. Objective Data Objective Data Vital Signs: Vital Signs Temp Pulse Resp BP Pulse Ox O2 Del Method 97.0 F L 97 16 121/58 H 97 Room Air 03/30/22 14:43 03/31/22 11:41 03/31/22 11:41 03/31/22 08:25 03/31/22 11:41 03/31/22 11:41 Oxygen Delivery Method Room Air Weight: 96.1 kg Body Mass Index (BMI) 35.2 Intake & Output: Intake and Output for Last 24 Hours 03/29/22 03/30/22 03/31/22 23:59 23:59 23:59 Intake Total 1080 / 1080 840 / 840 600 / 600 Balance 1080 / 1080 840 / 840 600 / 600 Lab / Micro Data Result Diagrams: 03/30/22 11:25 03/26/22 05:34 Labs: Laboratory Results - last 24 hr 03/30/22 16:36: POC Glucose 58 L 03/30/22 16:55: POC Glucose 59 L 03/30/22 17:26: POC Glucose 81 03/30/22 18:30: POC Glucose 115 H 03/30/22 21:18: POC Glucose 191 H 03/31/22 06:01: POC Glucose 237 H 03/31/22 11:12: POC Glucose 215 H Micro: Microbiology 03/29/22 06:08 Nasal Secretion SARS-CoV-2 Antigen (Rapid) - Final 03/27/22 05:00 Nasal Secretion SARS-CoV-2 Antigen (Rapid) - Final Physical Exam Const alert, oriented x3, no apparent distress and well nourished General Appearance: cooperative HEENT normocephalic Eyes General Eye: normal appearance of both eyes Neck General: normal visual inspection Lymph Lymphatic: no lymphadenopathy noted and no lymphedema noted Resp normal respiratory effort Cardio regular rate and regular rhythm Extremity normal capillary refill, no joint enlargement, no calf tenderness and no pedal edema Extremity Narrative: Right lower extremity Lisfranc amputation noted with intact sutures. Distal stump appears healthy and well perfused. No signs of infection. Skin no rashes or lesions noted, skin turgor normal and no jaundice Neuro moves all extremities Assessment & Plan Assessment/Plan (1) Obesity (BMI 30-39.9): (2) Type 2 diabetes mellitus with diabetic polyneuropathy: QUALIFIERS: Diabetes mellitus senior care insulin use: without terminal superintendent use Qualified Code(s): E11.42 - Type 2 diabetes mellitus with diabetic polyneuropathy (3) Atherosclerosis of [place] arteries of extremities with gangrene, right leg: (4) History of Lisfranc amputation of right foot: (5) Iron deficiency anemia: (6) Debility: PLAN: Plan Patient seen and evaluated Patient had undergone Lisfranc amputation of the right foot. DOS 03/21/2022. POD #10 She is admitted to transitional care unit to build strength and rehabilitation prior to being discharged home as well as remaining compliant with postoperative instructions and strict nonweightbearing status. Surgery 03/21/2022: During the debridement the remaining tissue was noted to be healthy and the remaining bone noted to be of good color and quality. Prior to closure site was irrigated with copious amounts of normal sterile saline, Irrisept, and 1 g of vancomycin powder was placed prior to closure. Surgical cultures from 03/21/2022: Cultures at time of surgery for both tissue and bone of the fourth metatarsal demonstrate PsA, Proteus, and E faecalis. ID recommending 1 week oral antibiotic ciprofloxacin and Augmentin. She has finished oral antibiotics. Today dressings were taken down and the distal amputation stump of the right foot is noted to have intact sutures with no signs of infection. She does have some postoperative stump edema with 1 stitch at the dorsal lateral aspect of the foot popped with some eschar/dried blood. There is adequate perfusion noted to the distal stump of the Lisfranc amputation site. Skin flap appears healthy in coloration with adequate perfusion. Site continues to do well post-operative. Dressings changed today consisting of Betadine soaked Adaptic, 4 x 4 gauze, ABD x2, Kerlix, and a 6 inch Didier wrap rolled onto the right foot. Patient to continue to elevate lower extremity at all times of rest to control postoperative edema. Discussed with her previously that she has popped 1 stitch at the dorsal lateral aspect of the incision stump and needs to be mindful of her edema. Reminded her again that even though therapy is working with her for her strength and rehabilitation that she is to maintain a strict nonweightbearing status to the right lower extremity. I have discussed with her and family today that if she continues to rupture more stitches or becomes infected or the amputation and flap fail that she may require a below the knee amputation. Patient and family voiced understanding of our discussion. Encourage protein diet with Pavel supplementation to aid healing. Also encouraged continued diabetic diet to maintain adequate control of sugars to aid healing. Wound nurse has been consulted for aid in dressing changes. Dressings to be ch anged every other day. I will continue to follow for postoperative management. Please not hesitate to call for any questions or concerns Jr. Fern Guerrero.P.M. Foot [facility] ankle Center [facility] [phone] Note: [employer] speech recognition manager domestic software was used to create portions of this document. Sound-alike and misspelled words, as well as other manager domestic errors may be contained in the documentation.
--- NOTE | 2022-03-31 14:50 | CASEMGMT ---
Social Work BIMS () and PHQ-9 (11/05) completed for MDS assessment. Explored positive responses. Pt expressed feeling down and letting family down d/t loss of independence from amputation. However, pt is optimistic with ongoing therapy and already seeing improvements. SW noted pt has good support system as evidenced by ongoing visitors.? Pt became tearful explaining pt?s daughter from cancer at 39 years old on 2021 from cancer and her birthday just passed on . Expressed condolences to pt and emotional support. Pt expressed appreciation, but feeling peaceful knowing daughter is no longer suffering. SW explored coping mechanisms. Pt enjoys word puzzles, visitors, reading the newspaper. Pt has several flower arrangements and cards in the room. SW offered ongoing supportive visits through stay. Will continue to follow. PURVI NashW
[2022-03-31 15:54] VITALS: BP 107/48; PULSE 89; RESP 16; TEMP 30.9; O2SAT 95
[2022-03-31] MEDS: traMADol 50 MG Tablet PO (16:21)
[2022-03-31 18:45] LABS: Bedside Glucose 94 mg/dL (74-106)
[2022-03-31 21:31] LABS: Bedside Glucose 104 mg/dL (74-106)
[2022-03-31] MEDS: Atorvastatin Calcium 80 MG Tablet PO (21:52)
[2022-04-01 05:46] LABS: Hematocrit 26.7 % (37-47); Hemoglobin 8.1 g/dL (12.0-15.0)
[2022-04-01] MEDS: amLODIPine 5 MG Tablet PO (06:10)
[2022-04-01] MEDS: Senna/Docusate Sodium 1 Tablet PO ×2 (06:10→17:42)
[2022-04-01] MEDS: Glucerna Shake 120 ML LIQUID PO ×4 (06:10→21:46)
[2022-04-01] MEDS: Clopidogrel Bisulfate 75 MG Tablet PO (06:10)
[2022-04-01] MEDS: Ciprofloxacin 500 MG Tablet PO ×2 (06:10→17:42)
[2022-04-01] MEDS: traMADol 50 MG Tablet PO (06:15)
[2022-04-01] MEDS: Menthol/Lanolin/Calamine/Znox 113 GM Tube 1 APPLIC TOPICAL ×2 (06:20→17:43)
[2022-04-01] MEDS: Nystatin Powder 15gm Bottle 1 APPLIC TOPICAL ×2 (06:20→21:45)
[2022-04-01 06:56] LABS: Bedside Glucose 89 mg/dL (74-106)
[2022-04-01] MEDS: Amox/Clavulanate 875 MG Tablet PO ×2 (08:37→17:42)
[2022-04-01] MEDS: metFORMIN HCl 1,000 MG Tablet 1000 MG PO ×2 (08:37→17:42)
[2022-04-01] MEDS: Lisinopril 10 MG Tablet PO (08:37)
[2022-04-01] MEDS: Ascorbic Acid 500 MG Tablet PO (08:37)
[2022-04-01] MEDS: Multivitamins,Therapeutic Tablet 1 TABLET PO (08:37)
[2022-04-01] MEDS: Aspirin 81 MG TAB.CHEW PO (08:37)
[2022-04-01] MEDS: Juven (unflavored) Packet 1 PACKET PO ×2 (08:37→17:42)
[2022-04-01] MEDS: Ferrous Sulfate 325 MG Tablet PO (08:37)
[2022-04-01 08:45] VITALS: BP 116/47; PULSE 101
[2022-04-01 11:16] LABS: Bedside Glucose 204 mg/dL (74-106)
[2022-04-01 12:18] VITALS: BMI 34.9
[2022-04-01] MEDS: Insulin Lispro 100 UNIT/ML INSULN.PEN 10 UNIT SC ×2 (12:31→17:41)
--- NOTE | 2022-04-01 14:48 | WOUNDNOTE ---
Dr Kendall had been in yesterday to change dressing. this nurse will change dressing tomorrow now since it is ordered every other day.
[2022-04-01 14:55] VITALS: BP 92/66; PULSE 90; RESP 16; TEMP 36.1; O2SAT 96
[2022-04-01 16:50] LABS: Bedside Glucose 130 mg/dL (74-106)
[2022-04-01] MEDS: Atorvastatin Calcium 80 MG Tablet PO (21:40)
[2022-04-01] MEDS: Insulin Glargine-YFGN 100 UNIT/ML Pen 15 UNIT SC (21:46)
[2022-04-01 22:00] VITALS: PULSE 92; RESP 16; O2SAT 98
[2022-04-01 22:00] LABS: Bedside Glucose 164 mg/dL (74-106)
[2022-04-02 05:40] LABS: Absolute Lymphocyte Count 4.13 X10^3/uL (0.83-4.51); Absolute Neutrophil Count 8.2 X10^3/uL (2.0-7.7); Basophil# 0.05 X10^3/uL; Basophil% 0.4 % (0-1); Eosinophil# 0.51 X10^3/uL; Eosinophils% 3.6 % (0-5); Hematocrit 26.5 % (37-47); Lymphocyte # 4.13 X10^3/ul (0.83-4.51); Mean Corp Hgb Conc 30.2 g/dL (32-36); Mean Corpuscular Hgb 27.4 pg (27.0-32.0); Mean Corpuscular Volume 90.8 fL (81-99); Mean Platelet Vol. 9.6 fl (6.2-12.0); Monocyte# 1.23 X10^3/uL; Monocyte% 8.6 % (0-10); NRBC Flagged by Analyzer 0 % (0-5); Neutrophil # 8.15 X10^3/uL (2.7-7.7); Neutrophil % 57.2 % (47-70); Platelet Count 648 K/mm3 (150-450); RBC Distribution Width CV 16.2 % (11.6-14.6); RBC Distribution Width SD 53.8 fl (35.1-43.9); Red Blood Count 2.92 M/mm3 (4.2-5.4); White Blood Count 14.2 K/mm3 (4.4-11.0)
[2022-04-02 06:46] LABS: Bedside Glucose 145 mg/dL (74-106)
[2022-04-02 06:49] LABS: Anion Gap 8 (5-15); BUN 51 mg/dL (7-18); BUN/Creat Ratio 38.1 RATIO (10-20); Calcium,Total 9.9 mg/dL (8.5-10.1); Chloride 103 mmol/L (98-107); Creatinine, Serum 1.34 mg/dL (0.55-1.02); EST Glomerular Filtration Rate 41 mL/min (>60); Est Glom Filt Rate - Afr Amer 50 mL/min (>60); Estimated Creatinine Clearance 33.14 ml/min; Glucose 151 mg/dL (74-106); Potassium 4.7 mmol/L (3.5-5.1); Sodium Level 137 mmol/L (136-145)
[2022-04-02] MEDS: Ciprofloxacin 500 MG Tablet PO ×2 (06:51→18:13)
[2022-04-02] MEDS: Clopidogrel Bisulfate 75 MG Tablet PO (06:51)
[2022-04-02] MEDS: Senna/Docusate Sodium 1 Tablet PO ×2 (06:51→18:13)
[2022-04-02] MEDS: amLODIPine 5 MG Tablet PO (06:51)
[2022-04-02 07:01] VITALS: BP 114/52; PULSE 89; RESP 16
[2022-04-02] MEDS: Glucerna Shake 120 ML LIQUID PO ×4 (08:24→22:22)
[2022-04-02] MEDS: Juven (unflavored) Packet 1 PACKET PO ×2 (08:25→18:13)
[2022-04-02] MEDS: Amox/Clavulanate 875 MG Tablet PO (08:25)
[2022-04-02] MEDS: Ferrous Sulfate 325 MG Tablet PO (08:25)
[2022-04-02] MEDS: Aspirin 81 MG TAB.CHEW PO (08:25)
[2022-04-02] MEDS: metFORMIN HCl 1,000 MG Tablet 1000 MG PO ×2 (08:25→18:13)
[2022-04-02] MEDS: Menthol/Lanolin/Calamine/Znox 113 GM Tube 1 APPLIC TOPICAL ×2 (08:26→22:22)
[2022-04-02] MEDS: Lisinopril 10 MG Tablet PO (08:26)
[2022-04-02] MEDS: Multivitamins,Therapeutic Tablet 1 TABLET PO (08:26)
[2022-04-02] MEDS: Ascorbic Acid 500 MG Tablet PO (08:26)
[2022-04-02] MEDS: Insulin Lispro 100 UNIT/ML INSULN.PEN 10 UNIT SC ×3 (08:27→18:14)
[2022-04-02] MEDS: Insulin Glargine-YFGN 100 UNIT/ML Pen 15 UNIT SC ×2 (08:27→22:26)
[2022-04-02 08:35] VITALS: PULSE 66; RESP 18; O2SAT 91
--- NOTE | 2022-04-02 08:56 | NURSING ---
Construction Job Titles Note; MDS for 04/01/2022 Complete
--- NOTE | 2022-04-02 10:08 | CASEMGMT ---
Social Work IDT met with patient and two daughters for care plan meeting. Discussed patient's progress in PT/OT/SN. Pt is under [facility]. [facility] Liaison present to explain funds. Family is to have pt DC home. Therapy recommending [facility] and hospital bed for home. SW to coordinate any DC needs. Will continue to follow. Sakshi Espino, CHEMICAL PLANT MANAGER FURNITURE INSTALLER
[2022-04-02] MEDS: Tuberculin,Purif.prot.deriv. 50 TU/ML Vial 0.1 ML ID (10:50)
[2022-04-02] MEDS: Nystatin Powder 15gm Bottle 1 APPLIC TOPICAL ×2 (10:52→22:24)
[2022-04-02] MEDS: traMADol 50 MG Tablet PO (10:56)
--- NOTE | 2022-04-02 11:39 | PT ---
Before getting pt out of bed, drainage noted on dressing on R foot. Notified FRANTZ Calhoun of drainage. Pt stated she was having some pain in her RLE today. Adelina wound nurse to come in and change pt's dressing today.
[2022-04-02 11:45] LABS: Bedside Glucose 220 mg/dL (74-106)
--- NOTE | 2022-04-02 13:04 | WOUNDNOTE ---
wound photo: right foot
--- NOTE | 2022-04-02 13:04 | WOUNDNOTE ---
wound photo: right foot
--- NOTE | 2022-04-02 13:05 | WOUNDNOTE ---
wound photo: right foot
--- NOTE | 2022-04-02 13:05 | WOUNDNOTE ---
wound photo: right foot
[2022-04-02 16:00] VITALS: BP 120/72; PULSE 63; RESP 17; TEMP 37.3; O2SAT 95
[2022-04-02 17:10] LABS: Bedside Glucose 151 mg/dL (74-106)
[2022-04-02] MEDS: Atorvastatin Calcium 40 MG Tablet 80 MG PO (22:23)
[2022-04-02 22:41] LABS: Bedside Glucose 134 mg/dL (74-106)
[2022-04-02] MEDS: Acetaminophen 500 MG Tablet 1000 MG PO (22:55)
[2022-04-03 05:48] LABS: Hematocrit 25.6 % (37-47); Hemoglobin 7.7 g/dL (12.0-15.0)
[2022-04-03] MEDS: Glucerna Shake 120 ML LIQUID PO ×4 (06:29→20:52)
[2022-04-03] MEDS: Senna/Docusate Sodium 1 Tablet PO ×2 (06:29→17:39)
[2022-04-03] MEDS: Clopidogrel Bisulfate 75 MG Tablet PO (06:35)
[2022-04-03 06:48] VITALS: BP 98/50; PULSE 80; RESP 16
--- NOTE | 2022-04-03 06:55 | NURSING ---
Written communication left for regarding frequent low blood pressures
[2022-04-03 06:56] LABS: Bedside Glucose 145 mg/dL (74-106)
[2022-04-03] MEDS: Insulin Glargine-YFGN 100 UNIT/ML Pen 15 UNIT SC ×2 (08:53→21:59)
[2022-04-03] MEDS: Insulin Lispro 100 UNIT/ML INSULN.PEN 10 UNIT SC ×3 (08:53→17:39)
[2022-04-03] MEDS: Juven (unflavored) Packet 1 PACKET PO ×2 (08:54→17:39)
[2022-04-03] MEDS: Aspirin 81 MG TAB.CHEW PO (08:54)
[2022-04-03] MEDS: Ferrous Sulfate 325 MG Tablet PO (08:54)
[2022-04-03] MEDS: Multivitamins,Therapeutic Tablet 1 TABLET PO (08:54)
[2022-04-03] MEDS: metFORMIN HCl 1,000 MG Tablet 1000 MG PO ×2 (08:54→17:39)
[2022-04-03] MEDS: Ascorbic Acid 500 MG Tablet PO (08:54)
[2022-04-03] MEDS: Menthol/Lanolin/Calamine/Znox 113 GM Tube 1 APPLIC TOPICAL ×2 (08:59→20:54)
[2022-04-03] MEDS: Nystatin Powder 15gm Bottle 1 APPLIC TOPICAL ×2 (09:00→20:52)
--- NOTE | 2022-04-03 11:18 | NURSING ---
Pt off unit for blood transfusion.
[2022-04-03 11:25] LABS: Bedside Glucose 205 mg/dL (74-106)
[2022-04-03 16:00] VITALS: BP 120/63; PULSE 95; RESP 18; TEMP 36.4; O2SAT 96
[2022-04-03 17:41] LABS: Bedside Glucose 158 mg/dL (74-106)
[2022-04-03] MEDS: Acetaminophen 500 MG Tablet 1000 MG PO (17:45)
[2022-04-03 20:00] VITALS: PULSE 90; RESP 16; O2SAT 97
[2022-04-03] MEDS: Atorvastatin Calcium 40 MG Tablet 80 MG PO (20:52)
[2022-04-03 21:45] LABS: Bedside Glucose 118 mg/dL (74-106)
[2022-04-04] MEDS: Clopidogrel Bisulfate 75 MG Tablet PO (05:43)
[2022-04-04] MEDS: Glucerna Shake 120 ML LIQUID PO ×3 (05:43→21:13)
[2022-04-04] MEDS: Senna/Docusate Sodium 1 Tablet PO ×2 (05:43→18:04)
[2022-04-04 05:48] LABS: Hematocrit 33.4 % (37-47); Hemoglobin 10.4 g/dL (12.0-15.0)
[2022-04-04 06:51] LABS: Bedside Glucose 122 mg/dL (74-106)
[2022-04-04] MEDS: Aspirin 81 MG TAB.CHEW PO (08:08)
[2022-04-04] MEDS: Ascorbic Acid 500 MG Tablet PO (08:09)
[2022-04-04] MEDS: Ferrous Sulfate 325 MG Tablet PO (08:09)
[2022-04-04] MEDS: Multivitamins,Therapeutic Tablet 1 TABLET PO (08:09)
[2022-04-04] MEDS: Juven (unflavored) Packet 1 PACKET PO ×2 (08:09→18:04)
[2022-04-04] MEDS: metFORMIN HCl 1,000 MG Tablet 1000 MG PO ×2 (08:09→18:04)
[2022-04-04] MEDS: Insulin Glargine-YFGN 100 UNIT/ML Pen 10 UNIT SC ×2 (08:13→22:34)
[2022-04-04] MEDS: Insulin Lispro 100 UNIT/ML INSULN.PEN 7 UNIT SC ×3 (08:14→18:10)
[2022-04-04] MEDS: Nystatin Powder 15gm Bottle 1 APPLIC TOPICAL ×2 (09:12→21:13)
[2022-04-04] MEDS: Menthol/Lanolin/Calamine/Znox 113 GM Tube 1 APPLIC TOPICAL ×2 (09:13→21:13)
[2022-04-04 09:26] VITALS: PULSE 95; RESP 16; O2SAT 95
--- NOTE | 2022-04-04 13:00 | PCM.PROGNOTE ---
Subjective Subjective 76-year-old female seen resting bedside today in chair with feet elevated. States therapy had recently worked with her. Denies constitutional symptoms. Denies any further complaints. Family is happy with the overall appearance of the here healing of her amputation site. Objective Data Objective Data Vital Signs: Vital Signs Temp Pulse Resp BP Pulse Ox O2 Del Method 97.5 F L 95 16 120/63 95 Room Air 04/03/22 16:00 04/04/22 09:26 04/04/22 09:26 04/03/22 16:00 04/04/22 09:26 04/04/22 09:26 Oxygen Delivery Method Room Air Weight: 95.436 kg Body Mass Index (BMI) 34.9 Intake & Output: Intake and Output for Last 24 Hours 04/02/22 04/03/22 04/04/22 23:59 23:59 23:59 Intake Total 700 / 700 580 / 580 240 / 240 Balance 700 / 700 580 / 580 240 / 240 Lab / Micro Data Result Diagrams: 04/04/22 05:22 04/02/22 05:27 Labs: Laboratory Results - last 24 hr 04/03/22 17:07: POC Glucose 158 H 04/03/22 21:22: POC Glucose 118 H 04/04/22 05:22: Hgb 10.4 L, Hct 33.4 L 04/04/22 06:10: POC Glucose 122 H Micro: Microbiology 03/29/22 06:08 Nasal Secretion SARS-CoV-2 Antigen (Rapid) - Final 03/27/22 05:00 Nasal Secretion SARS-CoV-2 Antigen (Rapid) - Final Physical Exam Const alert, oriented x3, no apparent distress and well nourished General Appearance: cooperative HEENT normocephalic Eyes General Eye: normal appearance of both eyes Neck General: normal visual inspection Lymph Lymphatic: no lymphadenopathy noted and no lymphedema noted Resp normal respiratory effort Cardio regular rate and regular rhythm Extremity normal capillary refill, no joint enlargement, no calf tenderness and no pedal edema Extremity Narrative: Right lower extremity Lisfranc amputation noted with intact sutures. Distal stump appears healthy and well perfused. No signs of infection. Skin no rashes or lesions noted, skin turgor normal and no jaundice Neuro moves all extremities Assessment & Plan Assessment/Plan (1) Obesity (BMI 30-39.9): (2) Type 2 diabetes mellitus with diabetic polyneuropathy: QUALIFIERS: Diabetes mellitus care home insulin use: without care home use Qualified Code(s): E11.42 - Type 2 diabetes mellitus with diabetic polyneuropathy (3) Atherosclerosis of [place] arteries of extremities with gangrene, right leg: (4) History of Lisfranc amputation of right foot: (5) Iron deficiency anemia: (6) Debility: PLAN: Plan Patient seen and evaluated Patient had undergone Lisfranc amputation of the right foot. DOS 03/21/2022. POD #14 She is admitted to transitional care unit to build strength and rehabilitation prior to being discharged home as well as remaining compliant with postoperative instructions and strict nonweightbearing status. Surgery 03/21/2022: During the debridement the remaining tissue was noted to be healthy and the remaining bone noted to be of good color and quality. Prior to closure site was irrigated with copious amounts of normal sterile saline, Irrisept, and 1 g of vancomycin powder was placed prior to closure. Surgical cultures from 03/21/2022: Cultures at time of surgery for both tissue and bone of the fourth metatarsal demonstrate PsA, Proteus, and E faecalis. ID recommending 1 week oral antibiotic ciprofloxacin and Augmentin. She has finished oral antibiotics. Today dressings were taken down and the distal amputation stump of the right foot is noted to have intact sutures with no signs of infection. She does have some postoperative stump edema with 1 stitch at the dorsal lateral aspect of the foot popped with some eschar/dried blood. There is adequate perfusion noted to the distal stump of the Lisfranc amputation site. Skin flap appears healthy in coloration with adequate perfusion. Site continues to do well post-operative. Dressings changed today consisting of Betadine soaked Adaptic, 4 x 4 gauze, ABD x2, Kerlix, and a 6 inch Didier wrap rolled onto the right foot. Patient to continue to elevate lower extremity at all times of rest to control postoperative edema. Discussed with her previously that she has popped 1 stitch at the dorsal lateral aspect of the incision stump and needs to be mindful of her edema. Reminded her again that even though therapy is working with her for her strength and rehabilitation that she is to maintain a strict nonweightbearing status to the right lower extremity. I have discussed with her and family today that if she continues to rupture more stitches or becomes infected or the amputation and flap fail that she may require a below the knee amputation. Patient and family voiced understanding of our discussion. Encourage protein diet with Pavel supplementation to aid healing. Also encouraged continued diabetic diet to maintain adequate control of sugars to aid healing. Wound nurse has been consulted for aid in dressing changes. Dressings to be changed every other day. I will continue to follow for postoperative management. Please not hesitate to call for any questions or concerns Jr. Fern Guerrero.P.M. Foot [facility] ankle Center [facility] [phone] Note: [employer] speech recognition insurance operations rep software was used to create portions of this document. Sound-alike and misspelled words, as well as other insurance operations rep errors may be contained in the documentation.
[2022-04-04 15:07] VITALS: BP 113/56; PULSE 97; RESP 16; TEMP 37.4; O2SAT 96
[2022-04-04 16:45] LABS: Bedside Glucose 233 mg/dL (74-106)
[2022-04-04] MEDS: Atorvastatin Calcium 40 MG Tablet 80 MG PO (21:14)
[2022-04-04 22:10] LABS: Bedside Glucose 237 mg/dL (74-106)
[2022-04-04] MEDS: traMADol 50 MG Tablet PO (22:38)
[2022-04-05] MEDS: Glucerna Shake 120 ML LIQUID PO ×4 (05:18→21:23)
[2022-04-05] MEDS: Senna/Docusate Sodium 1 Tablet PO ×2 (05:19→17:50)
[2022-04-05] MEDS: Clopidogrel Bisulfate 75 MG Tablet PO (05:19)
[2022-04-05 06:36] LABS: Bedside Glucose 207 mg/dL (74-106)
[2022-04-05] MEDS: Ascorbic Acid 500 MG Tablet PO (08:44)
[2022-04-05] MEDS: Aspirin 81 MG TAB.CHEW PO (08:44)
[2022-04-05] MEDS: Insulin Glargine-YFGN 100 UNIT/ML Pen 10 UNIT SC ×2 (08:44→21:24)
[2022-04-05] MEDS: Insulin Lispro 100 UNIT/ML INSULN.PEN 7 UNIT SC ×3 (08:44→17:49)
[2022-04-05] MEDS: metFORMIN HCl 1,000 MG Tablet 1000 MG PO ×2 (08:44→17:50)
[2022-04-05] MEDS: Ferrous Sulfate 325 MG Tablet PO (08:44)
[2022-04-05] MEDS: Juven (unflavored) Packet 1 PACKET PO ×2 (08:44→17:50)
[2022-04-05] MEDS: Multivitamins,Therapeutic Tablet 1 TABLET PO (08:44)
[2022-04-05] MEDS: Menthol/Lanolin/Calamine/Znox 113 GM Tube 1 APPLIC TOPICAL ×2 (08:45→21:29)
[2022-04-05] MEDS: Nystatin Powder 15gm Bottle 1 APPLIC TOPICAL ×2 (08:45→21:29)
[2022-04-05 12:45] LABS: Bedside Glucose 218 mg/dL (74-106)
[2022-04-05] MEDS: Acetaminophen 500 MG Tablet 1000 MG PO ×2 (13:07→21:21)
[2022-04-05 14:49] VITALS: BP 98/46; PULSE 63; RESP 14; TEMP 36.9; O2SAT 99
--- NOTE | 2022-04-05 15:54 | NURSING ---
Changed Dressing to Right Foot D/t Strike through. No new drainage was noted at the time of dressing change will continue to monitor.
[2022-04-05 16:56] LABS: Bedside Glucose 155 mg/dL (74-106)
[2022-04-05] MEDS: 0.9% Saline Lock 10 ML Syringe IV (19:19)
[2022-04-05] MEDS: Atorvastatin Calcium 40 MG Tablet 80 MG PO (21:22)
[2022-04-05 21:30] VITALS: PULSE 74; RESP 16; O2SAT 95
[2022-04-05 21:36] LABS: Bedside Glucose 169 mg/dL (74-106)
[2022-04-06 04:15] LABS: Hematocrit 34.1 % (37-47); Hemoglobin 10.7 g/dL (12.0-15.0)
[2022-04-06] MEDS: Senna/Docusate Sodium 1 Tablet PO ×2 (05:59→17:38)
[2022-04-06] MEDS: Clopidogrel Bisulfate 75 MG Tablet PO (05:59)
[2022-04-06] MEDS: Glucerna Shake 120 ML LIQUID PO ×3 (06:00→17:38)
[2022-04-06] MEDS: 0.9% Saline Lock 10 ML Syringe IV (06:02)
[2022-04-06 07:16] LABS: Bedside Glucose 157 mg/dL (74-106)
[2022-04-06] MEDS: Juven (unflavored) Packet 1 PACKET PO ×2 (07:50→17:38)
[2022-04-06] MEDS: Aspirin 81 MG TAB.CHEW PO (07:50)
[2022-04-06] MEDS: metFORMIN HCl 1,000 MG Tablet 1000 MG PO ×2 (07:50→17:38)
[2022-04-06] MEDS: Ferrous Sulfate 325 MG Tablet PO (07:50)
[2022-04-06] MEDS: Insulin Glargine-YFGN 100 UNIT/ML Pen 10 UNIT SC ×2 (07:50→22:35)
[2022-04-06] MEDS: Multivitamins,Therapeutic Tablet 1 TABLET PO (07:50)
[2022-04-06] MEDS: Ascorbic Acid 500 MG Tablet PO (07:50)
[2022-04-06] MEDS: Insulin Lispro 100 UNIT/ML INSULN.PEN 7 UNIT SC ×3 (07:51→17:41)
[2022-04-06 10:00] VITALS: PULSE 89; O2SAT 98
[2022-04-06 11:31] LABS: Bedside Glucose 265 mg/dL (74-106)
[2022-04-06] MEDS: Menthol/Lanolin/Calamine/Znox 113 GM Tube 1 APPLIC TOPICAL ×2 (11:56→22:37)
[2022-04-06] MEDS: Nystatin Powder 15gm Bottle 1 APPLIC TOPICAL ×2 (11:56→22:42)
[2022-04-06 14:58] VITALS: BP 119/60; PULSE 92; RESP 16; TEMP 36.2; O2SAT 94
[2022-04-06 16:46] LABS: Bedside Glucose 195 mg/dL (74-106)
--- NOTE | 2022-04-06 18:48 | NURSING ---
IV Removed From Left Forearm d/t being occulted.
[2022-04-06 22:30] LABS: Bedside Glucose 223 mg/dL (74-106)
[2022-04-07] MEDS: Clopidogrel Bisulfate 75 MG Tablet PO (06:23)
[2022-04-07] MEDS: Senna/Docusate Sodium 1 Tablet PO (06:23)
[2022-04-07 07:00] LABS: Bedside Glucose 146 mg/dL (74-106)
[2022-04-07] MEDS: Insulin Lispro 100 UNIT/ML INSULN.PEN 7 UNIT SC ×3 (07:44→17:58)
[2022-04-07] MEDS: Ferrous Sulfate 325 MG Tablet PO (07:45)
[2022-04-07] MEDS: Insulin Glargine-YFGN 100 UNIT/ML Pen 10 UNIT SC ×2 (07:45→21:56)
[2022-04-07] MEDS: Aspirin 81 MG TAB.CHEW PO (07:45)
[2022-04-07] MEDS: metFORMIN HCl 1,000 MG Tablet 1000 MG PO ×2 (07:45→17:59)
[2022-04-07] MEDS: Multivitamins,Therapeutic Tablet 1 TABLET PO (07:46)
[2022-04-07] MEDS: Ascorbic Acid 500 MG Tablet PO (07:46)
[2022-04-07] MEDS: Juven (unflavored) Packet 1 PACKET PO ×2 (07:46→17:59)
[2022-04-07 11:31] LABS: Bedside Glucose 203 mg/dL (74-106)
--- NOTE | 2022-04-07 11:36 | NURSING ---
Therapy makes this nurse aware that blood noted through dressing to left foot after therapy session. Small spot of blood noted soaking through dressing. Dressing removed and sutures appear intact and small amount of bloody drainage. Incision well approximated. Area cleansed and dressing re-applied per order and patient tolerated well.
[2022-04-07] MEDS: Glucerna Shake 120 ML LIQUID PO ×3 (12:05→21:06)
[2022-04-07] MEDS: Menthol/Lanolin/Calamine/Znox 113 GM Tube 1 APPLIC TOPICAL ×2 (12:07→21:06)
[2022-04-07] MEDS: Nystatin Powder 15gm Bottle 1 APPLIC TOPICAL ×2 (12:07→21:07)
--- NOTE | 2022-04-07 13:47 | WOUNDNOTE ---
wound photo: right foot
--- NOTE | 2022-04-07 13:47 | WOUNDNOTE ---
wound photo: right foot
--- NOTE | 2022-04-07 13:48 | WOUNDNOTE ---
wound photo: right foot
[2022-04-07 15:15] VITALS: BP 109/57; PULSE 69; RESP 16; TEMP 36.6; O2SAT 98
[2022-04-07 16:30] LABS: Bedside Glucose 143 mg/dL (74-106)
[2022-04-07] MEDS: Atorvastatin Calcium 40 MG Tablet 80 MG PO (21:06)
[2022-04-07 21:10] VITALS: PULSE 91; RESP 16; O2SAT 94
[2022-04-07 22:01] LABS: Bedside Glucose 150 mg/dL (74-106)
--- NOTE | 2022-04-07 22:49 | NURSING ---
Requested medication at earlier time HS
[2022-04-08] MEDS: Glucerna Shake 120 ML LIQUID PO ×4 (05:29→20:19)
[2022-04-08] MEDS: Clopidogrel Bisulfate 75 MG Tablet PO (05:30)
[2022-04-08] MEDS: Senna/Docusate Sodium 1 Tablet PO ×2 (05:31→17:19)
[2022-04-08 06:41] LABS: Bedside Glucose 168 mg/dL (74-106)
[2022-04-08] MEDS: Multivitamins,Therapeutic Tablet 1 TABLET PO (08:09)
[2022-04-08] MEDS: Ascorbic Acid 500 MG Tablet PO (08:09)
[2022-04-08] MEDS: Ferrous Sulfate 325 MG Tablet PO (08:09)
[2022-04-08] MEDS: metFORMIN HCl 1,000 MG Tablet 1000 MG PO ×2 (08:09→17:19)
[2022-04-08] MEDS: Aspirin 81 MG TAB.CHEW PO (08:09)
[2022-04-08] MEDS: Juven (unflavored) Packet 1 PACKET PO ×2 (08:09→17:19)
[2022-04-08] MEDS: Insulin Lispro 100 UNIT/ML INSULN.PEN 7 UNIT SC ×3 (08:10→17:19)
[2022-04-08] MEDS: Insulin Glargine-YFGN 100 UNIT/ML Pen 10 UNIT SC ×2 (08:10→20:27)
[2022-04-08 10:43] VITALS: BMI 33.8
[2022-04-08 11:16] LABS: Bedside Glucose 286 mg/dL (74-106)
[2022-04-08] MEDS: Menthol/Lanolin/Calamine/Znox 113 GM Tube 1 APPLIC TOPICAL ×2 (11:47→20:20)
[2022-04-08] MEDS: Nystatin Powder 15gm Bottle 1 APPLIC TOPICAL ×2 (11:47→20:20)
[2022-04-08 14:03] VITALS: BP 116/55; PULSE 87; RESP 16; TEMP 36.1; O2SAT 96
--- NOTE | 2022-04-08 15:50 | CASEMGMT ---
Addendum entered by Sakshi Espino 04/09/22 13:33: Received return call from [facility] Liaison and [facility] agreed to cover SN only once therapy DCs. SW updated IDT. SW to speak with pt and family. Original Note: Social Work IDT discussed patient's progress and DC recommendations. Therapy recommending setting DC and pt can/want to remain for SN for wound care. Charge Nurse aware to begin wound care teaching and shared care with family in preparation for DC. SW left voicemail with [facility] Liaison to inquire about [facility] agreeing for continued payment for SN only. Will await outcome prior to speak with pt/family. SW to continue to follow. Sakshi Espino, PURVI RODARTEW
[2022-04-08 16:35] LABS: Bedside Glucose 172 mg/dL (74-106)
--- NOTE | 2022-04-08 16:49 | NURSING ---
Addendum entered by Elsi Borges 04/08/22 16:49: Return time was 1445 Original Note: pt returned from dr ayala. No new orders.
[2022-04-08 20:10] VITALS: PULSE 94; RESP 17; O2SAT 94
[2022-04-08] MEDS: Atorvastatin Calcium 40 MG Tablet 80 MG PO (20:19)
[2022-04-08 20:45] LABS: Bedside Glucose 172 mg/dL (74-106)
[2022-04-09 05:37] LABS: Absolute Lymphocyte Count 3.77 X10^3/uL (0.83-4.51); Absolute Neutrophil Count 7.7 X10^3/uL (2.0-7.7); Basophil# 0.04 X10^3/uL; Basophil% 0.3 % (0-1); Eosinophils% 3.8 % (0-5); Hemoglobin 10.8 g/dL (12.0-15.0); Lymphocyte # 3.77 X10^3/ul (0.83-4.51); Lymphocyte % 28.7 % (19-41); Mean Corp Hgb Conc 30.9 g/dL (32-36); Mean Corpuscular Hgb 28.1 pg (27.0-32.0); Mean Corpuscular Volume 90.9 fL (81-99); Mean Platelet Vol. 10.1 fl (6.2-12.0); Monocyte# 1.07 X10^3/uL; Monocyte% 8.2 % (0-10); NRBC Flagged by Analyzer 0 % (0-5); Neutrophil # 7.69 X10^3/uL (2.7-7.7); Neutrophil % 58.6 % (47-70); Platelet Count 689 K/mm3 (150-450); RBC Distribution Width CV 15.9 % (11.6-14.6); RBC Distribution Width SD 52.6 fl (35.1-43.9); Red Blood Count 3.85 M/mm3 (4.2-5.4); White Blood Count 13.1 K/mm3 (4.4-11.0)
[2022-04-09 05:56] LABS: Anion Gap 9 (5-15); BUN 65 mg/dL (7-18); Calcium,Total 10.4 mg/dL (8.5-10.1); Chloride 102 mmol/L (98-107); Creatinine, Serum 1.25 mg/dL (0.55-1.02); EST Glomerular Filtration Rate 44 mL/min (>60); Est Glom Filt Rate - Afr Amer 54 mL/min (>60); Estimated Creatinine Clearance 35.53 ml/min; Glucose 190 mg/dL (74-106); Potassium 4.6 mmol/L (3.5-5.1); Sodium Level 136 mmol/L (136-145)
[2022-04-09 06:31] LABS: Bedside Glucose 176 mg/dL (74-106)
[2022-04-09] MEDS: Senna/Docusate Sodium 1 Tablet PO (06:32)
[2022-04-09] MEDS: Clopidogrel Bisulfate 75 MG Tablet PO (06:32)
[2022-04-09 06:41] VITALS: BP 129/61; PULSE 84; RESP 14; TEMP 36.2; O2SAT 95
[2022-04-09] MEDS: Multivitamins,Therapeutic Tablet 1 TABLET PO (07:57)
[2022-04-09] MEDS: Ascorbic Acid 500 MG Tablet PO (07:57)
[2022-04-09] MEDS: Aspirin 81 MG TAB.CHEW PO (07:58)
[2022-04-09] MEDS: Ferrous Sulfate 325 MG Tablet PO (07:58)
[2022-04-09] MEDS: Insulin Glargine-YFGN 100 UNIT/ML Pen 10 UNIT SC ×2 (07:58→22:58)
[2022-04-09] MEDS: metFORMIN HCl 1,000 MG Tablet 1000 MG PO ×2 (07:58→17:38)
[2022-04-09] MEDS: Insulin Lispro 100 UNIT/ML INSULN.PEN 7 UNIT SC ×3 (07:59→17:38)
[2022-04-09] MEDS: Juven (unflavored) Packet 1 PACKET PO ×2 (07:59→17:38)
[2022-04-09] MEDS: FLUCONAZOLE 150 MG TABLET PO (09:11)
[2022-04-09] MEDS: Ketoconazole Cream 1 APPLIC TOPICAL ×2 (09:11→21:11)
[2022-04-09] MEDS: Nystatin Powder 15gm Bottle 1 APPLIC TOPICAL ×2 (09:13→21:13)
[2022-04-09] MEDS: Menthol/Lanolin/Calamine/Znox 113 GM Tube 1 APPLIC TOPICAL ×2 (09:13→21:12)
[2022-04-09 11:11] LABS: Bedside Glucose 322 mg/dL (74-106)
[2022-04-09] MEDS: Glucerna Shake 120 ML LIQUID PO ×3 (12:19→21:14)
[2022-04-09 14:46] VITALS: BP 122/62; PULSE 95; RESP 16; TEMP 36; O2SAT 97
[2022-04-09 18:35] LABS: Bedside Glucose 193 mg/dL (74-106)
--- NOTE | 2022-04-09 19:15 | RAD_ITS ---
EXAM: XR ABDOMEN, 1 VIEW CLINICAL INDICATION: Diarrhea TECHNIQUE: Frontal supine view of the abdomen/pelvis. This report was created using [employer] report generation technology. COMPARISON: None. FINDINGS: LOWER THORAX: No acute pathology. GASTROINTESTINAL TRACT: Unremarkable. Non-obstructive. No bowel or stomach distention. ORGANS: Unremarkable as visualized. No organomegaly. No abnormal calcifications. BONES/JOINTS: There are degenerative changes of the lumbar spine. SOFT TISSUES: No acute pathology. VASCULATURE: There are atherosclerotic vascular calcifications. RAD/Abdomen Single View IMPRESSION: No acute findings. Electronically Signed: Tate Perez MD at 19:37 EST ,
[2022-04-09] MEDS: Atorvastatin Calcium 40 MG Tablet 80 MG PO (21:12)
[2022-04-09 22:00] LABS: Bedside Glucose 267 mg/dL (74-106)
[2022-04-09 22:30] VITALS: PULSE 93; RESP 16; O2SAT 93
[2022-04-10] MEDS: Clopidogrel Bisulfate 75 MG Tablet PO (05:07)
[2022-04-10] MEDS: Glucerna Shake 120 ML LIQUID PO ×3 (05:07→21:29)
[2022-04-10] MEDS: Ketoconazole Cream 1 APPLIC TOPICAL ×2 (05:07→17:57)
[2022-04-10 06:31] LABS: Bedside Glucose 254 mg/dL (74-106)
[2022-04-10] MEDS: Insulin Glargine-YFGN 100 UNIT/ML Pen 15 UNIT SC ×2 (08:14→21:29)
[2022-04-10] MEDS: Juven (unflavored) Packet 1 PACKET PO ×2 (08:14→17:57)
[2022-04-10] MEDS: metFORMIN HCl 1,000 MG Tablet 1000 MG PO ×2 (08:15→17:57)
[2022-04-10] MEDS: Insulin Lispro 100 UNIT/ML INSULN.PEN 10 UNIT SC ×3 (08:15→17:58)
[2022-04-10] MEDS: Ascorbic Acid 500 MG Tablet PO (08:16)
[2022-04-10] MEDS: Multivitamins,Therapeutic Tablet 1 TABLET PO (08:16)
[2022-04-10] MEDS: Ferrous Sulfate 325 MG Tablet PO (08:16)
[2022-04-10] MEDS: Aspirin 81 MG TAB.CHEW PO (08:16)
[2022-04-10 09:03] VITALS: PULSE 96
[2022-04-10] MEDS: Menthol/Lanolin/Calamine/Znox 113 GM Tube 1 APPLIC TOPICAL ×2 (11:48→21:34)
[2022-04-10] MEDS: Nystatin Powder 15gm Bottle 1 APPLIC TOPICAL ×2 (11:55→21:34)
[2022-04-10 12:06] LABS: Bedside Glucose 333 mg/dL (74-106)
[2022-04-10 14:52] VITALS: BP 116/60; PULSE 90; RESP 16; TEMP 36.1; O2SAT 97
[2022-04-10 16:16] LABS: Bedside Glucose 194 mg/dL (74-106)
--- NOTE | 2022-04-10 16:45 | CASEMGMT ---
Social Work Therapy set DC date for 04/16. SW updated wound nurse and pt will remain skilled for nursing and to notify this worker when DC is appropriate. SW updated [facility] Liaison. SW spoke with pt and dtr in room. Updated to above. All expressed understanding. Sakshi Espino, [employer]
[2022-04-10] MEDS: Atorvastatin Calcium 40 MG Tablet 80 MG PO (21:29)
[2022-04-10 21:51] LABS: Bedside Glucose 180 mg/dL (74-106)
[2022-04-11] MEDS: Glucerna Shake 120 ML LIQUID PO ×3 (06:07→21:31)
[2022-04-11] MEDS: Ketoconazole Cream 1 APPLIC TOPICAL ×2 (06:08→21:35)
[2022-04-11] MEDS: Clopidogrel Bisulfate 75 MG Tablet PO (06:09)
[2022-04-11 06:21] LABS: Bedside Glucose 169 mg/dL (74-106)
[2022-04-11] MEDS: Insulin Lispro 100 UNIT/ML INSULN.PEN 10 UNIT SC ×3 (08:08→17:57)
[2022-04-11] MEDS: Multivitamins,Therapeutic Tablet 1 TABLET PO (08:08)
[2022-04-11] MEDS: metFORMIN HCl 1,000 MG Tablet 1000 MG PO ×2 (08:08→17:57)
[2022-04-11] MEDS: Juven (unflavored) Packet 1 PACKET PO ×2 (08:08→17:57)
[2022-04-11] MEDS: Ferrous Sulfate 325 MG Tablet PO (08:08)
[2022-04-11] MEDS: Aspirin 81 MG TAB.CHEW PO (08:08)
[2022-04-11] MEDS: Ascorbic Acid 500 MG Tablet PO (08:08)
[2022-04-11] MEDS: Insulin Glargine-YFGN 100 UNIT/ML Pen 15 UNIT SC ×2 (08:09→21:32)
[2022-04-11 11:35] LABS: Bedside Glucose 276 mg/dL (74-106)
[2022-04-11] MEDS: Nystatin Powder 15gm Bottle 1 APPLIC TOPICAL ×2 (11:50→21:38)
[2022-04-11] MEDS: Menthol/Lanolin/Calamine/Znox 113 GM Tube 1 APPLIC TOPICAL ×2 (11:50→21:37)
--- NOTE | 2022-04-11 14:46 | WOUNDNOTE ---
Dr Zuñiga had been in to remove sutures from the right foot. there is slight separation to the plantar portion of the incision. small amount of drainage noted. applied betadine and placed steri strips. covered with dry dressings and wrapped with kerlix. pt is to remain NWB until reassessed by Dr Zuñiga on Thursday. pt tolerated well.
[2022-04-11 15:56] VITALS: BP 125/64; PULSE 84; RESP 14; TEMP 36.9; O2SAT 97
[2022-04-11 17:06] LABS: Bedside Glucose 211 mg/dL (74-106)
--- NOTE | 2022-04-11 17:32 | PN_ITS ---
Subjective Subjective Patient seen bedside resting today in chair with feet elevated. She states she had just worked with physical therapy. Family is gathered around. She denies any constitutional symptoms. No further complaints today. Objective Data Objective Data Vital Signs: Vital Signs Temp Pulse Resp BP Pulse Ox O2 Del Method 98.5 F 84 14 125/64 H 97 Room Air 04/11/22 15:56 04/11/22 15:56 04/11/22 15:56 04/11/22 15:56 04/11/22 15:56 04/11/22 15:56 Oxygen Delivery Method Room Air Weight: 92.193 kg Body Mass Index (BMI) 33.8 Intake & Output: Intake and Output for Last 24 Hours 04/09/22 04/10/22 04/11/22 23:59 23:59 23:59 Intake Total 720 / 720 840 / 840 720 / 720 Balance 720 / 720 840 / 840 720 / 720 Lab / Micro Data Result Diagrams: 04/09/22 05:29 04/09/22 05:29 Labs: Laboratory Results - last 24 hr 04/10/22 21:26: POC Glucose 180 H 04/11/22 05:50: POC Glucose 169 H 04/11/22 11:16: POC Glucose 276 H 04/11/22 16:47: POC Glucose 211 H Micro: Microbiology 04/04/22 13:42 Stool Stool Occult Blood (MARINO) - Final 03/29/22 06:08 Nasal Secretion SARS-CoV-2 Antigen (Rapid) - Final 03/27/22 05:00 Nasal Secretion SARS-CoV-2 Antigen (Rapid) - Final Physical Exam Const alert, oriented x3, no apparent distress and well nourished General Appearance: cooperative HEENT normocephalic Eyes General Eye: normal appearance of both eyes Neck General: normal visual inspection Lymph Lymphatic: no lymphadenopathy noted and no lymphedema noted Resp normal respiratory effort Cardio regular rate and regular rhythm Extremity normal capillary refill, no joint enlargement, no calf tenderness and no pedal edema Extremity Narrative: Right lower extremity Lisfranc amputation noted with intact sutures. Distal stump appears healthy and well perfused. No signs of infection. Skin no rashes or lesions noted, skin turgor normal and no jaundice Neuro moves all extremities Assessment & Plan Assessment/Plan (1) Obesity (BMI 30-39.9): (2) Type 2 diabetes mellitus with diabetic polyneuropathy: QUALIFIERS: Diabetes mellitus residential insulin use: without residential use Qualified Code(s): E11.42 - Type 2 diabetes mellitus with diabetic polyneuropathy (3) Atherosclerosis of [place] arteries of extremities with gangrene, right leg: (4) History of Lisfranc amputation of right foot: (5) Iron deficiency anemia: (6) Debility: PLAN: Plan Patient seen and evaluated Patient had undergone Lisfranc amputation of the right foot. DOS 03/21/2022. POD #21 She is admitted to transitional care unit to build strength and rehabilitation prior to being discharged home as well as remaining compliant with postoperative instructions and strict nonweightbearing status. Surgery 03/21/2022: During the debridement the remaining tissue was noted to be healthy and the remaining bone noted to be of good color and quality. Prior to closure site was irrigated with copious amounts of normal sterile saline, Irrisept, and 1 g of vancomycin powder was placed prior to closure. Surgical cultures from 03/21/2022: Cultures at time of surgery for both tissue and bone of the fourth metatarsal demonstrate PsA, Proteus, and E faecalis. ID recommending 1 week oral antibiotic ciprofloxacin and Augmentin. She has finished oral antibiotics. Today dressings were taken down and the distal amputation stump of the right foot is noted to have intact sutures with no signs of infection. She does have some postoperative stump edema with 1 stitch at the dorsal lateral aspect of the foot popped with some eschar/dried blood. There is adequate perfusion noted to the distal stump of the Lisfranc amputation site. Skin flap appears healthy in coloration with adequate perfusion. Site continues to do well post-operative. Sutures were removed atraumatically today site painted with Betadine. Dressings changed today consisting of Betadine, Steri-Strips, 4 x 4 gauze, ABD x2, Kerlix. Patient to continue to elevate lower extremity at all times of rest to control postoperative edema. Discussed with her that she has a small area of dehiscence at the plantar aspect which we are treating with Steri-Strips and she needs to continue to be mindful of edema and to not walk until cleared. Reminded her again that even though therapy is working with her for her strength and rehabilitation that she is to maintain a strict nonweightbearing status to the right lower extremity. I have discussed with her and family today that if she continues to undergo further dehiscence or becomes infected or the amputation and flap fail that she may require a below the knee amputation. Patient and family voiced understanding of our discussion. Encourage protein diet with Pavel supplementation to aid healing. Also e ncouraged continued diabetic diet to maintain adequate control of sugars to aid healing. Wound nurse has been consulted for aid in dressing changes. Dressings to be changed every other day. I will continue to follow for postoperative management. Please not hesitate to call for any questions or concerns Jr. Fern Guerrero.P.M. [facility] [phone] Note: [employer] speech recognition pediatric psychologist software was used to create portions of this document. Sound-alike and misspelled words, as well as other pediatric psychologist errors may be contained in the documentation.
[2022-04-11 21:30] VITALS: PULSE 98; RESP 16; O2SAT 98
[2022-04-11] MEDS: Atorvastatin Calcium 40 MG Tablet 80 MG PO (21:31)
[2022-04-11] MEDS: traMADol 50 MG Tablet PO (21:32)
[2022-04-11 21:41] LABS: Bedside Glucose 234 mg/dL (74-106)
[2022-04-12] MEDS: Glucerna Shake 120 ML LIQUID PO ×4 (05:28→20:20)
[2022-04-12] MEDS: Ketoconazole Cream 1 APPLIC TOPICAL ×2 (05:28→17:08)
[2022-04-12] MEDS: Senna/Docusate Sodium 1 Tablet PO ×2 (05:29→17:08)
[2022-04-12] MEDS: Clopidogrel Bisulfate 75 MG Tablet PO (05:29)
[2022-04-12 06:46] LABS: Bedside Glucose 226 mg/dL (74-106)
[2022-04-12] MEDS: Insulin Lispro 100 UNIT/ML INSULN.PEN 10 UNIT SC ×2 (08:26→12:15)
[2022-04-12] MEDS: Insulin Glargine-YFGN 100 UNIT/ML Pen 15 UNIT SC (08:27)
[2022-04-12] MEDS: metFORMIN HCl 1,000 MG Tablet 1000 MG PO ×2 (08:29→17:06)
[2022-04-12] MEDS: Aspirin 81 MG TAB.CHEW PO (08:30)
[2022-04-12] MEDS: Multivitamins,Therapeutic Tablet 1 TABLET PO (08:30)
[2022-04-12] MEDS: Juven (unflavored) Packet 1 PACKET PO ×2 (08:30→17:06)
[2022-04-12] MEDS: Ascorbic Acid 500 MG Tablet PO (08:30)
[2022-04-12] MEDS: Ferrous Sulfate 325 MG Tablet PO (08:30)
[2022-04-12] MEDS: Nystatin Powder 15gm Bottle 1 APPLIC TOPICAL ×2 (08:31→20:21)
[2022-04-12] MEDS: Menthol/Lanolin/Calamine/Znox 113 GM Tube 1 APPLIC TOPICAL ×2 (08:31→20:20)
[2022-04-12 11:16] LABS: Bedside Glucose 217 mg/dL (74-106)
[2022-04-12 14:45] VITALS: BP 101/52; PULSE 84; RESP 17; TEMP 35.7; O2SAT 99
[2022-04-12 16:46] LABS: Bedside Glucose 215 mg/dL (74-106)
[2022-04-12] MEDS: Insulin Lispro 100 UNIT/ML INSULN.PEN 13 UNIT SC (17:07)
[2022-04-12] MEDS: Atorvastatin Calcium 40 MG Tablet 80 MG PO (20:21)
[2022-04-12] MEDS: Insulin Glargine-YFGN 100 UNIT/ML Pen 20 UNIT SC (21:43)
[2022-04-12 22:00] LABS: Bedside Glucose 116 mg/dL (74-106)
--- NOTE | 2022-04-12 23:59 | PCA ---
pt had her daughter stay and her grand daughter stay over night with her in her room
[2022-04-13] MEDS: Glucerna Shake 120 ML LIQUID PO ×4 (05:05→20:00)
[2022-04-13] MEDS: Ketoconazole Cream 1 APPLIC TOPICAL ×2 (05:05→17:14)
[2022-04-13] MEDS: Senna/Docusate Sodium 1 Tablet PO (05:06)
[2022-04-13] MEDS: Clopidogrel Bisulfate 75 MG Tablet PO (05:06)
[2022-04-13 06:30] LABS: Bedside Glucose 131 mg/dL (74-106)
[2022-04-13] MEDS: Multivitamins,Therapeutic Tablet 1 TABLET PO (08:37)
[2022-04-13] MEDS: Aspirin 81 MG TAB.CHEW PO (08:37)
[2022-04-13] MEDS: Ferrous Sulfate 325 MG Tablet PO (08:38)
[2022-04-13] MEDS: Ascorbic Acid 500 MG Tablet PO (08:38)
[2022-04-13] MEDS: metFORMIN HCl 1,000 MG Tablet 1000 MG PO ×2 (08:38→17:13)
[2022-04-13] MEDS: Menthol/Lanolin/Calamine/Znox 113 GM Tube 1 APPLIC TOPICAL ×2 (08:39→19:58)
[2022-04-13] MEDS: Juven (unflavored) Packet 1 PACKET PO ×2 (08:39→17:14)
[2022-04-13] MEDS: Nystatin Powder 15gm Bottle 1 APPLIC TOPICAL ×2 (08:40→20:00)
[2022-04-13] MEDS: Insulin Lispro 100 UNIT/ML INSULN.PEN 13 UNIT SC (08:47)
[2022-04-13] MEDS: Insulin Glargine-YFGN 100 UNIT/ML Pen 20 UNIT SC (08:47)
[2022-04-13 11:00] LABS: Bedside Glucose 290 mg/dL (74-106)
[2022-04-13] MEDS: Insulin Lispro 100 UNIT/ML INSULN.PEN 11 UNIT SC ×2 (12:31→17:15)
[2022-04-13 14:27] VITALS: BP 121/63; PULSE 89; RESP 18; TEMP 35.9; O2SAT 99
[2022-04-13 16:45] LABS: Bedside Glucose 196 mg/dL (74-106)
[2022-04-13] MEDS: traMADol 50 MG Tablet PO (19:58)
[2022-04-13] MEDS: Atorvastatin Calcium 40 MG Tablet 80 MG PO (19:58)
[2022-04-13] MEDS: Insulin Glargine-YFGN 100 UNIT/ML Pen 17 UNIT SC (21:51)
[2022-04-13 21:55] LABS: Bedside Glucose 174 mg/dL (74-106)
[2022-04-13 22:10] VITALS: PULSE 96; RESP 16; O2SAT 96
[2022-04-14] MEDS: Clopidogrel Bisulfate 75 MG Tablet PO (05:38)
[2022-04-14] MEDS: Glucerna Shake 120 ML LIQUID PO ×4 (05:38→21:09)
[2022-04-14] MEDS: Senna/Docusate Sodium 1 Tablet PO (05:39)
[2022-04-14] MEDS: Ketoconazole Cream 1 APPLIC TOPICAL ×2 (05:39→21:11)
[2022-04-14 06:25] LABS: Bedside Glucose 194 mg/dL (74-106)
[2022-04-14] MEDS: Insulin Glargine-YFGN 100 UNIT/ML Pen 17 UNIT SC ×2 (08:02→21:09)
[2022-04-14] MEDS: Juven (unflavored) Packet 1 PACKET PO ×2 (08:02→17:37)
[2022-04-14] MEDS: Ascorbic Acid 500 MG Tablet PO (08:02)
[2022-04-14] MEDS: Multivitamins,Therapeutic Tablet 1 TABLET PO (08:02)
[2022-04-14] MEDS: Ferrous Sulfate 325 MG Tablet PO (08:02)
[2022-04-14] MEDS: metFORMIN HCl 1,000 MG Tablet 1000 MG PO ×2 (08:02→17:38)
[2022-04-14] MEDS: Aspirin 81 MG TAB.CHEW PO (08:02)
[2022-04-14] MEDS: Insulin Lispro 100 UNIT/ML INSULN.PEN 11 UNIT SC ×3 (08:03→17:37)
[2022-04-14 09:35] VITALS: PULSE 91; O2SAT 93
[2022-04-14] MEDS: Nystatin Powder 15gm Bottle 1 APPLIC TOPICAL ×2 (09:43→21:12)
[2022-04-14] MEDS: Menthol/Lanolin/Calamine/Znox 113 GM Tube 1 APPLIC TOPICAL ×2 (09:43→21:11)
[2022-04-14 11:36] LABS: Bedside Glucose 232 mg/dL (74-106)
--- NOTE | 2022-04-14 12:59 | PN_ITS ---
Subjective Subjective Seen resting bedside in chair with feet elevated. Denies any constitutional symptoms. Denies further complaints. Family present. Objective Data Objective Data Vital Signs: Vital Signs Temp Pulse Resp BP Pulse Ox O2 Del Method 96.7 F L 91 16 121/63 H 93 Room Air 04/13/22 14:27 04/14/22 09:35 04/13/22 22:10 04/13/22 14:27 04/14/22 09:35 04/14/22 09:35 Oxygen Delivery Method Room Air Weight: 92.193 kg Body Mass Index (BMI) 33.8 Intake & Output: Intake and Output for Last 24 Hours 04/12/22 04/13/22 04/14/22 23:59 23:59 23:59 Intake Total 760 / 760 680 / 680 840 / 840 Balance 760 / 760 680 / 680 840 / 840 Lab / Micro Data Result Diagrams: 04/09/22 05:29 04/09/22 05:29 Labs: Laboratory Results - last 24 hr 04/13/22 16:22: POC Glucose 196 H 04/13/22 21:35: POC Glucose 174 H 04/14/22 06:07: POC Glucose 194 H 04/14/22 10:46: POC Glucose 232 H Micro: Microbiology 04/04/22 13:42 Stool Stool Occult Blood (MARINO) - Final 03/29/22 06:08 Nasal Secretion SARS-CoV-2 Antigen (Rapid) - Final 03/27/22 05:00 Nasal Secretion SARS-CoV-2 Antigen (Rapid) - Final Physical Exam Const alert, oriented x3, no apparent distress and well nourished General Appearance: cooperative HEENT normocephalic Eyes General Eye: normal appearance of both eyes Neck General: normal visual inspection Lymph Lymphatic: no lymphadenopathy noted and no lymphedema noted Resp normal respiratory effort Cardio regular rate and regular rhythm Extremity normal capillary refill, no joint enlargement, no calf tenderness and no pedal edema Extremity Narrative: Right lower extremity Lisfranc amputation noted with intact sutures. Distal stump appears healthy and well perfused. No signs of infection. Skin no rashes or lesions noted, skin turgor normal and no jaundice Neuro moves all extremities Assessment & Plan Assessment/Plan (1) Obesity (BMI 30-39.9): (2) Type 2 diabetes mellitus with diabetic polyneuropathy: QUALIFIERS: Diabetes mellitus half-way insulin use: without long term care social worker use Qualified Code(s): E11.42 - Type 2 diabetes mellitus with diabetic polyneuropathy (3) Atherosclerosis of [place] arteries of extremities with gangrene, right leg: (4) History of Lisfranc amputation of right foot: (5) Iron deficiency anemia: (6) Debility: PLAN: Plan Patient seen and evaluated Patient had undergone Lisfranc amputation of the right foot. DOS 03/21/2022. POD #24 She is admitted to transitional care unit to build strength and rehabilitation prior to being discharged home as well as remaining compliant with postoperative instructions and strict nonweightbearing status. Surgery 03/21/2022: During the debridement the remaining tissue was noted to be healthy and the remaining bone noted to be of good color and quality. Prior to closure site was irrigated with copious amounts of normal sterile saline, Irrisept, and 1 g of vancomycin powder was placed prior to closure. Surgical cultures from 03/21/2022: Cultures at time of surgery for both tissue and bone of the fourth metatarsal demonstrate PsA, Proteus, and E faecalis. ID recommending 1 week oral antibiotic ciprofloxacin and Augmentin. She has finished oral antibiotics. Today dressings were taken down and the distal amputation stump of the right foot is noted to have intact sutures with no signs of infection. She does have some postoperative stump edema with 1 stitch at the dorsal lateral aspect of the foot popped with some eschar/dried blood. There is adequate perfusion noted to the distal stump of the Lisfranc amputation site. Skin flap appears is beginning to darken with eschar around incision sites, small area of dehiscence at the plantar lateral aspect draining serosanguineous fluid. Site continues to do well post-operative and denies pain. Sutures were removed atraumatically today site painted with Betadine. Dressings changed today consisting of Betadine, Steri-Strips, 4 x 4 gauze, ABD x2, Kerlix. Patient to continue to elevate lower extremity at all times of rest to control postoperative edema. Discussed with her that she has a small area of dehiscence at the plantar aspect which we are treating with Steri-Strips and she needs to continue to be mindful of edema and to not walk until cleared. Reminded her again that even though therapy is working with her for her strength and reha bilitation that she is to maintain a strict nonweightbearing status to the right lower extremity. I have discussed with her and family today that if she continues to undergo further dehiscence or becomes infected or the amputation and flap fail that she may require a below the knee amputation. Patient and family voiced understanding of our discussion. Patient does have another appointment with Dr. Lopez, vascular surgeon scheduled soon. Encourage protein diet with Pavel supplementation to aid healing. Also encouraged continued diabetic diet to maintain adequate control of sugars to aid healing. Wound nurse has been consulted for aid in dressing changes. Dressings to be changed every other day. I will continue to follow for postoperative management. Please not hesitate to call for any questions or concerns Jr. Konstantin GuerreroP.M. [facility] [place] [phone]
[2022-04-14 14:34] VITALS: BP 118/65; PULSE 84; RESP 16; TEMP 36.2; O2SAT 98
[2022-04-14 17:50] LABS: Bedside Glucose 153 mg/dL (74-106)
[2022-04-14] MEDS: Atorvastatin Calcium 40 MG Tablet 80 MG PO (21:10)
[2022-04-14 21:45] LABS: Bedside Glucose 140 mg/dL (74-106)
[2022-04-15] MEDS: Senna/Docusate Sodium 1 Tablet PO (05:39)
[2022-04-15] MEDS: Glucerna Shake 120 ML LIQUID PO ×4 (05:39→20:32)
[2022-04-15] MEDS: Ketoconazole Cream 1 APPLIC TOPICAL ×2 (05:39→19:00)
[2022-04-15] MEDS: Clopidogrel Bisulfate 75 MG Tablet PO (05:39)
[2022-04-15] MEDS: Multivitamins,Therapeutic Tablet 1 TABLET PO (08:00)
[2022-04-15] MEDS: Ascorbic Acid 500 MG Tablet PO (08:00)
[2022-04-15] MEDS: Juven (unflavored) Packet 1 PACKET PO ×2 (08:01→17:41)
[2022-04-15] MEDS: metFORMIN HCl 1,000 MG Tablet 1000 MG PO ×2 (08:01→17:41)
[2022-04-15] MEDS: Ferrous Sulfate 325 MG Tablet PO (08:01)
[2022-04-15] MEDS: Insulin Lispro 100 UNIT/ML INSULN.PEN 11 UNIT SC ×3 (08:02→17:42)
[2022-04-15] MEDS: Aspirin 81 MG TAB.CHEW PO (08:02)
[2022-04-15] MEDS: Insulin Glargine-YFGN 100 UNIT/ML Pen 17 UNIT SC ×2 (08:05→21:59)
[2022-04-15 08:20] LABS: Bedside Glucose 228 mg/dL (74-106)
[2022-04-15 11:30] LABS: Bedside Glucose 267 mg/dL (74-106)
[2022-04-15] MEDS: Menthol/Lanolin/Calamine/Znox 113 GM Tube 1 APPLIC TOPICAL ×2 (11:53→20:48)
[2022-04-15] MEDS: Nystatin Powder 15gm Bottle 1 APPLIC TOPICAL ×2 (11:53→20:48)
[2022-04-15 12:00] VITALS: BMI 33.8
[2022-04-15 14:43] VITALS: BP 123/59; PULSE 80; RESP 14; TEMP 36.3; O2SAT 97
[2022-04-15 16:55] LABS: Bedside Glucose 137 mg/dL (74-106)
[2022-04-15] MEDS: Atorvastatin Calcium 40 MG Tablet 80 MG PO (20:32)
[2022-04-15 20:49] VITALS: PULSE 92; RESP 16; O2SAT 96
[2022-04-15 21:30] LABS: Bedside Glucose 142 mg/dL (74-106)
[2022-04-16 05:39] LABS: Absolute Neutrophil Count 5.2 X10^3/uL (2.0-7.7); Basophil# 0.07 X10^3/uL; Basophil% 0.7 % (0-1); Eosinophil# 0.54 X10^3/uL; Eosinophils% 5.3 % (0-5); Hematocrit 37.9 % (37-47); Hemoglobin 11.5 g/dL (12.0-15.0); Lymphocyte % 34.2 % (19-41); Mean Corp Hgb Conc 30.3 g/dL (32-36); Mean Corpuscular Hgb 27.3 pg (27.0-32.0); Mean Corpuscular Volume 89.8 fL (81-99); Mean Platelet Vol. 11.1 fl (6.2-12.0); Monocyte# 0.87 X10^3/uL; Monocyte% 8.5 % (0-10); NRBC Flagged by Analyzer 0 % (0-5); Neutrophil % 50.9 % (47-70); Platelet Count 481 K/mm3 (150-450); RBC Distribution Width CV 15.3 % (11.6-14.6); RBC Distribution Width SD 50.6 fl (35.1-43.9); Red Blood Count 4.22 M/mm3 (4.2-5.4); White Blood Count 10.2 K/mm3 (4.4-11.0)
[2022-04-16 06:02] LABS: Anion Gap 10 (5-15); BUN 58 mg/dL (7-18); BUN/Creat Ratio 58.9 RATIO (10-20); Calcium,Total 10.4 mg/dL (8.5-10.1); Chloride 106 mmol/L (98-107); Creatinine, Serum 0.98 mg/dL (0.55-1.02); EST Glomerular Filtration Rate 59 mL/min (>60); Est Glom Filt Rate - Afr Amer 71 mL/min (>60); Estimated Creatinine Clearance 45.32 ml/min; Glucose 156 mg/dL (74-106); Potassium 4.1 mmol/L (3.5-5.1); Sodium Level 141 mmol/L (136-145)
[2022-04-16] MEDS: Ketoconazole Cream 1 APPLIC TOPICAL ×2 (06:02→17:48)
[2022-04-16] MEDS: Clopidogrel Bisulfate 75 MG Tablet PO (06:02)
[2022-04-16] MEDS: Glucerna Shake 120 ML LIQUID PO ×4 (06:02→21:44)
[2022-04-16 06:25] LABS: Bedside Glucose 149 mg/dL (74-106)
[2022-04-16] MEDS: Insulin Lispro 100 UNIT/ML INSULN.PEN 11 UNIT SC ×3 (08:31→17:47)
[2022-04-16] MEDS: Aspirin 81 MG TAB.CHEW PO (08:32)
[2022-04-16] MEDS: Ferrous Sulfate 325 MG Tablet PO (08:32)
[2022-04-16] MEDS: Insulin Glargine-YFGN 100 UNIT/ML Pen 17 UNIT SC ×2 (08:33→21:43)
[2022-04-16] MEDS: metFORMIN HCl 1,000 MG Tablet 1000 MG PO ×2 (08:33→17:48)
[2022-04-16] MEDS: Multivitamins,Therapeutic Tablet 1 TABLET PO (08:34)
[2022-04-16] MEDS: Menthol/Lanolin/Calamine/Znox 113 GM Tube 1 APPLIC TOPICAL ×2 (08:34→21:50)
[2022-04-16] MEDS: Ascorbic Acid 500 MG Tablet PO (08:34)
[2022-04-16] MEDS: Juven (unflavored) Packet 1 PACKET PO ×2 (08:34→17:48)
[2022-04-16] MEDS: Nystatin Powder 15gm Bottle 1 APPLIC TOPICAL ×2 (08:34→21:49)
[2022-04-16] MEDS: FLUCONAZOLE 150 MG TABLET PO (09:44)
[2022-04-16 14:00] VITALS: BP 101/65; PULSE 91; TEMP 36.1; O2SAT 19
--- NOTE | 2022-04-16 14:35 | WOUNDNOTE ---
wound photo: right foot
--- NOTE | 2022-04-16 14:36 | WOUNDNOTE ---
wound photo: right foot
--- NOTE | 2022-04-16 14:36 | WOUNDNOTE ---
wound photo: right foot
[2022-04-16 16:31] LABS: Bedside Glucose 117 mg/dL (74-106)
[2022-04-16 19:16] LABS: Bedside Glucose 244 mg/dL (74-106)
[2022-04-16] MEDS: Atorvastatin Calcium 40 MG Tablet 80 MG PO (21:45)
[2022-04-16 21:50] LABS: Bedside Glucose 169 mg/dL (74-106)
[2022-04-16 22:27] VITALS: PULSE 86; RESP 16; O2SAT 97
[2022-04-17] MEDS: Clopidogrel Bisulfate 75 MG Tablet PO (05:47)
[2022-04-17] MEDS: Ketoconazole Cream 1 APPLIC TOPICAL ×2 (05:47→20:30)
[2022-04-17] MEDS: Glucerna Shake 120 ML LIQUID PO ×4 (05:47→20:31)
[2022-04-17] MEDS: Ferrous Sulfate 325 MG Tablet PO (08:09)
[2022-04-17] MEDS: Ascorbic Acid 500 MG Tablet PO (08:09)
[2022-04-17] MEDS: Juven (unflavored) Packet 1 PACKET PO ×2 (08:09→18:13)
[2022-04-17] MEDS: Multivitamins,Therapeutic Tablet 1 TABLET PO (08:09)
[2022-04-17] MEDS: Menthol/Lanolin/Calamine/Znox 113 GM Tube 1 APPLIC TOPICAL ×2 (08:10→20:39)
[2022-04-17] MEDS: metFORMIN HCl 1,000 MG Tablet 1000 MG PO ×2 (08:10→18:13)
[2022-04-17] MEDS: Aspirin 81 MG TAB.CHEW PO (08:10)
[2022-04-17] MEDS: Nystatin Powder 15gm Bottle 1 APPLIC TOPICAL ×2 (08:11→20:39)
[2022-04-17] MEDS: Insulin Glargine-YFGN 100 UNIT/ML Pen 17 UNIT SC ×2 (08:11→22:27)
[2022-04-17] MEDS: Insulin Lispro 100 UNIT/ML INSULN.PEN 11 UNIT SC ×3 (08:54→18:12)
[2022-04-17 08:58] VITALS: PULSE 87; O2SAT 93
[2022-04-17 12:11] LABS: Bedside Glucose 163 mg/dL (74-106)
[2022-04-17 12:11] LABS: Bedside Glucose 173 mg/dL (74-106)
[2022-04-17 14:22] VITALS: BP 146/63; PULSE 95; RESP 18; TEMP 35.8; O2SAT 96
[2022-04-17 16:31] LABS: Bedside Glucose 140 mg/dL (74-106)
[2022-04-17] MEDS: Atorvastatin Calcium 40 MG Tablet 80 MG PO (20:31)
[2022-04-17 21:40] LABS: Bedside Glucose 197 mg/dL (74-106)
[2022-04-18] MEDS: Glucerna Shake 120 ML LIQUID PO ×4 (05:52→20:15)
[2022-04-18] MEDS: Ketoconazole Cream 1 APPLIC TOPICAL ×2 (05:52→17:36)
[2022-04-18] MEDS: Clopidogrel Bisulfate 75 MG Tablet PO (05:52)
[2022-04-18 06:40] LABS: Bedside Glucose 152 mg/dL (74-106)
[2022-04-18] MEDS: Ferrous Sulfate 325 MG Tablet PO (08:24)
[2022-04-18] MEDS: Ascorbic Acid 500 MG Tablet PO (08:24)
[2022-04-18] MEDS: Multivitamins,Therapeutic Tablet 1 TABLET PO (08:24)
[2022-04-18] MEDS: Insulin Lispro 100 UNIT/ML INSULN.PEN 11 UNIT SC ×2 (08:25→11:53)
[2022-04-18] MEDS: Aspirin 81 MG TAB.CHEW PO (08:25)
[2022-04-18] MEDS: metFORMIN HCl 1,000 MG Tablet 1000 MG PO ×2 (08:25→17:32)
[2022-04-18] MEDS: Juven (unflavored) Packet 1 PACKET PO ×2 (08:26→17:31)
[2022-04-18] MEDS: Insulin Glargine-YFGN 100 UNIT/ML Pen 17 UNIT SC ×2 (08:27→21:51)
[2022-04-18] MEDS: Menthol/Lanolin/Calamine/Znox 113 GM Tube 1 APPLIC TOPICAL ×2 (08:32→20:16)
[2022-04-18] MEDS: Nystatin Powder 15gm Bottle 1 APPLIC TOPICAL ×2 (08:33→20:17)
[2022-04-18 11:55] LABS: Bedside Glucose 256 mg/dL (74-106)
[2022-04-18] MEDS: Acetaminophen 500 MG Tablet 1000 MG PO (11:58)
[2022-04-18 16:00] VITALS: BP 101/66; PULSE 85; RESP 16; TEMP 36.6; O2SAT 97
[2022-04-18 17:30] LABS: Bedside Glucose 106 mg/dL (74-106)
[2022-04-18] MEDS: Atorvastatin Calcium 40 MG Tablet 80 MG PO (20:16)
[2022-04-18] MEDS: traMADol 50 MG Tablet PO (20:20)
[2022-04-18 21:00] VITALS: PULSE 84; RESP 16; O2SAT 96
[2022-04-18 22:00] LABS: Bedside Glucose 200 mg/dL (74-106)
[2022-04-19] MEDS: Glucerna Shake 120 ML LIQUID PO ×4 (04:43→22:28)
[2022-04-19] MEDS: Ketoconazole Cream 1 APPLIC TOPICAL ×2 (04:43→17:43)
[2022-04-19] MEDS: Clopidogrel Bisulfate 75 MG Tablet PO (04:45)
[2022-04-19 06:36] LABS: Bedside Glucose 164 mg/dL (74-106)
[2022-04-19] MEDS: metFORMIN HCl 1,000 MG Tablet 1000 MG PO ×2 (08:02→17:43)
[2022-04-19] MEDS: Ferrous Sulfate 325 MG Tablet PO (08:02)
[2022-04-19] MEDS: Insulin Lispro 100 UNIT/ML INSULN.PEN 11 UNIT SC ×3 (08:02→17:43)
[2022-04-19] MEDS: Aspirin 81 MG TAB.CHEW PO (08:02)
[2022-04-19] MEDS: Juven (unflavored) Packet 1 PACKET PO ×2 (08:03→17:43)
[2022-04-19] MEDS: Insulin Glargine-YFGN 100 UNIT/ML Pen 17 UNIT SC ×2 (08:03→22:31)
[2022-04-19] MEDS: Ascorbic Acid 500 MG Tablet PO (08:03)
[2022-04-19] MEDS: Multivitamins,Therapeutic Tablet 1 TABLET PO (08:03)
[2022-04-19] MEDS: Nystatin Powder 15gm Bottle 1 APPLIC TOPICAL ×2 (08:04→22:27)
[2022-04-19] MEDS: Menthol/Lanolin/Calamine/Znox 113 GM Tube 1 APPLIC TOPICAL ×2 (08:04→22:28)
[2022-04-19 11:35] LABS: Bedside Glucose 172 mg/dL (74-106)
[2022-04-19 16:00] VITALS: BP 106/57; PULSE 88; RESP 16; TEMP 36; O2SAT 96
[2022-04-19 16:50] LABS: Bedside Glucose 79 mg/dL (74-106)
[2022-04-19 18:06] LABS: Bedside Glucose 121 mg/dL (74-106)
[2022-04-19 21:15] LABS: Bedside Glucose 145 mg/dL (74-106)
[2022-04-19] MEDS: Atorvastatin Calcium 40 MG Tablet 80 MG PO (22:29)
[2022-04-20] MEDS: Glucerna Shake 120 ML LIQUID PO ×3 (05:59→17:37)
[2022-04-20] MEDS: Clopidogrel Bisulfate 75 MG Tablet PO (06:00)
[2022-04-20 06:31] LABS: Bedside Glucose 144 mg/dL (74-106)
[2022-04-20] MEDS: Aspirin 81 MG TAB.CHEW PO (08:27)
[2022-04-20] MEDS: Ketoconazole Cream 1 APPLIC TOPICAL ×2 (08:27→17:39)
[2022-04-20] MEDS: Juven (unflavored) Packet 1 PACKET PO ×2 (08:27→17:37)
[2022-04-20] MEDS: metFORMIN HCl 1,000 MG Tablet 1000 MG PO ×2 (08:27→17:37)
[2022-04-20] MEDS: Ferrous Sulfate 325 MG Tablet PO (08:27)
[2022-04-20] MEDS: Multivitamins,Therapeutic Tablet 1 TABLET PO (08:27)
[2022-04-20] MEDS: Insulin Lispro 100 UNIT/ML INSULN.PEN 11 UNIT SC ×3 (08:28→17:38)
[2022-04-20] MEDS: Insulin Glargine-YFGN 100 UNIT/ML Pen 17 UNIT SC ×2 (08:28→23:06)
[2022-04-20] MEDS: Ascorbic Acid 500 MG Tablet PO (08:29)
[2022-04-20] MEDS: Menthol/Lanolin/Calamine/Znox 113 GM Tube 1 APPLIC TOPICAL ×2 (08:35→23:04)
[2022-04-20] MEDS: Nystatin Powder 15gm Bottle 1 APPLIC TOPICAL ×2 (08:35→23:03)
[2022-04-20 11:55] LABS: Bedside Glucose 230 mg/dL (74-106)
[2022-04-20 16:00] VITALS: BP 120/54; PULSE 85; RESP 16; TEMP 36.7; O2SAT 97
[2022-04-20 16:50] LABS: Bedside Glucose 181 mg/dL (74-106)
[2022-04-20] MEDS: Senna/Docusate Sodium 1 Tablet PO (17:37)
[2022-04-20 21:26] LABS: Bedside Glucose 188 mg/dL (74-106)
[2022-04-20] MEDS: Atorvastatin Calcium 40 MG Tablet 80 MG PO (23:05)
[2022-04-21] MEDS: Clopidogrel Bisulfate 75 MG Tablet PO (05:52)
[2022-04-21] MEDS: Glucerna Shake 120 ML LIQUID PO ×4 (05:52→21:46)
[2022-04-21] MEDS: Ketoconazole Cream 1 APPLIC TOPICAL ×2 (05:53→17:54)
[2022-04-21 06:40] LABS: Bedside Glucose 160 mg/dL (74-106)
[2022-04-21] MEDS: Insulin Lispro 100 UNIT/ML INSULN.PEN 11 UNIT SC ×3 (08:20→17:53)
[2022-04-21] MEDS: Aspirin 81 MG TAB.CHEW PO (08:20)
[2022-04-21] MEDS: Ferrous Sulfate 325 MG Tablet PO (08:21)
[2022-04-21] MEDS: metFORMIN HCl 1,000 MG Tablet 1000 MG PO ×2 (08:21→17:54)
[2022-04-21] MEDS: Insulin Glargine-YFGN 100 UNIT/ML Pen 17 UNIT SC ×2 (08:21→21:45)
[2022-04-21] MEDS: Multivitamins,Therapeutic Tablet 1 TABLET PO (08:22)
[2022-04-21] MEDS: Ascorbic Acid 500 MG Tablet PO (08:22)
[2022-04-21] MEDS: Juven (unflavored) Packet 1 PACKET PO ×2 (08:22→17:54)
[2022-04-21 11:20] LABS: Bedside Glucose 234 mg/dL (74-106)
--- NOTE | 2022-04-21 12:07 | PCM.PROGNOTE ---
Subjective Subjective Patient is seen bedside today in chair with feet elevated eating lunch. [id number] was present. Patient is noted to have appointment with vascular surgeon, Dr. Lopez tomorrow. She currently denies any pain in the right lower extremity. Denies any constitutional symptoms. Denies further complaints. Objective Data Objective Data Vital Signs: Vital Signs Temp Pulse Resp BP Pulse Ox O2 Del Method O2 Flow Rate 98.1 F 85 16 120/54 L 97 Room Air 93 04/20/22 16:00 04/20/22 16:00 04/20/22 16:00 04/20/22 16:00 04/20/22 16:00 04/20/22 22:50 04/16/22 14:00 Oxygen Flow Rate (L/min) 93 Oxygen Delivery Method Room Air Weight: 92.351 kg Body Mass Index (BMI) 33.8 Intake & Output: Intake and Output for Last 24 Hours 04/19/22 04/20/22 04/21/22 22:59 23:59 23:59 Intake Total 120 / 120 Balance 120 / 120 Lab / Micro Data Result Diagrams: 04/16/22 05:24 04/16/22 05:24 Labs: Laboratory Results - last 24 hr 04/20/22 16:31: POC Glucose 181 H 04/20/22 21:03: POC Glucose 188 H 04/21/22 06:19: POC Glucose 160 H 04/21/22 10:59: POC Glucose 234 H Micro: Microbiology 04/04/22 13:42 Stool Stool Occult Blood (MARINO) - Final 03/29/22 06:08 Nasal Secretion SARS-CoV-2 Antigen (Rapid) - Final 03/27/22 05:00 Nasal Secretion SARS-CoV-2 Antigen (Rapid) - Final Physical Exam Const alert, oriented x3, no apparent distress and well nourished General Appearance: cooperative HEENT normocephalic Eyes General Eye: normal appearance of both eyes Neck General: normal visual inspection Lymph Lymphatic: no lymphadenopathy noted and no lymphedema noted Resp normal respiratory effort Cardio regular rate and regular rhythm Extremity normal capillary refill, no joint enlargement, no calf tenderness and no pedal edema Extremity Narrative: Right lower extremity Lisfranc amputation noted. Distal stump appears healthy and well perfused with dried eschar about the incision margins. No signs of infection. Skin no rashes or lesions noted, skin turgor normal and no jaundice Neuro moves all extremities Assessment & Plan Assessment/Plan (1) Obesity (BMI 30-39.9): (2) Type 2 diabetes mellitus with diabetic polyneuropathy: QUALIFIERS: Diabetes mellitus long chain quiller tender insulin use: without long chain quiller tender use Qualified Code(s): E11.42 - Type 2 diabetes mellitus with diabetic polyneuropathy (3) Atherosclerosis of [place] arteries of extremities with gangrene, right leg: (4) History of Lisfranc amputation of right foot: (5) Iron deficiency anemia: (6) Debility: PLAN: Plan Patient seen and evaluated Patient had undergone Lisfranc amputation of the right foot. DOS 03/21/2022. POD #31 She is admitted to transitional care unit to build strength and rehabilitation prior to being discharged home as well as remaining compliant with postoperative instructions and strict nonweightbearing status. Surgery 03/21/2022: During the debridement the remaining tissue was noted to be healthy and the remaining bone noted to be of good color and quality. Prior to closure site was irrigated with copious amounts of normal sterile saline, Irrisept, and 1 g of vancomycin powder was placed prior to closure. Surgical cultures from 03/21/2022: Cultures at time of surgery for both tissue and bone of the fourth metatarsal demonstrate PsA, Proteus, and E faecalis. ID recommending 1 week oral antibiotic ciprofloxacin and Augmentin. She has finished oral antibiotics. Today dressings were taken down and the distal amputation stump of the right foot is noted to have dried eschar about the incision margins. No signs of infection. There is adequate perfusion noted to the distal stump of the Lisfranc amputation site. Skin flap demonstrate darken with eschar around incision sites with slight purplish discoloration laterally, small area of dehiscence at the plantar lateral aspect draining serosanguineous fluid. Medial aspect of the skin flap demonstrates healthy appearance. Site continues to do well post-operative and denies pain. Edema improving. Dressings changed today consisting of Betadine, Steri-Strips, 4 x 4 gauze, ABD x2, Kerlix. Patient to continue to elevate lower extremity at all times of rest to control postoperative edema. Discussed with her that she has a small area of dehiscence at the plantar aspect which we are treating with Steri-Strips and she needs to continue to be mindful of edema and to not walk until cleared. Reminded her again that even though therapy is working with her for her strength and rehabilitation that she is to maintain a strict nonweightbearing status to the right lower extremity. I have discussed with her and family today that if she continues to undergo further dehiscence or becomes infected or the amputation and flap fail that she may require a below the knee amputation. Patient and family voiced understanding of our discussion. Patient does have another appointment with Dr. Lopez, vascular surgeon scheduled tomorrow. Encourage protein diet with Pavel supplementation to aid healing. Also encouraged continued diabetic diet to maintain adequate control of sugars to aid healing. Wound nurse has been consulted for aid in dressing changes. Dressings to be changed every other day. I will continue to follow for postoperative management. Please not hesitate to call for any questions or concerns Jr. Fern Guerrero.P.M. [facility] [place] [phone]
[2022-04-21] MEDS: Nystatin Powder 15gm Bottle 1 APPLIC TOPICAL ×2 (13:32→21:48)
[2022-04-21] MEDS: Menthol/Lanolin/Calamine/Znox 113 GM Tube 1 APPLIC TOPICAL ×2 (13:35→21:48)
--- NOTE | 2022-04-21 14:30 | WOUNDNOTE ---
wound photo: right foot
--- NOTE | 2022-04-21 14:31 | WOUNDNOTE ---
wound photo: right foot
[2022-04-21 15:20] VITALS: BP 116/64; PULSE 85; RESP 18; TEMP 36.3; O2SAT 97
[2022-04-21 16:41] LABS: Bedside Glucose 159 mg/dL (74-106)
--- NOTE | 2022-04-21 19:41 | PN.TCU_ITS ---
Subjective Subjective Resident seen, examined for regulatory visit. She has no new complaints. No pain, eating well, sugars well controlled. Her right foot amputation showing necrosis, appreciate Dr. Zuñiga following closely. She will see Dr. Lopez tomorrow to see if any other vascular intervention beneficial. Resident is aware she may need right below the knee amputation if amputation site does not improve. Objective Data Objective Data Vital Signs: Vital Signs Temp Pulse Resp BP Pulse Ox O2 Del Method O2 Flow Rate 97.4 F L 85 18 116/64 97 Room Air 93 04/21/22 15:20 04/21/22 15:20 04/21/22 15:20 04/21/22 15:20 04/21/22 15:20 04/21/22 15:20 04/16/22 14:00 Oxygen Flow Rate (L/min) 93 Oxygen Delivery Method Room Air Weight: 92.351 kg Body Mass Index (BMI) 33.8 Intake & Output: Intake and Output for Last 24 Hours 04/19/22 04/20/22 04/21/22 22:59 23:59 23:59 Intake Total 360 / 360 Balance 360 / 360 Lab / Micro Data Result Diagrams: 04/16/22 05:24 04/16/22 05:24 Labs: Laboratory Results - last 24 hr 04/20/22 21:03: POC Glucose 188 H 04/21/22 06:19: POC Glucose 160 H 04/21/22 10:59: POC Glucose 234 H 04/21/22 16:21: POC Glucose 159 H Micro: Microbiology 04/04/22 13:42 Stool Stool Occult Blood (MARINO) - Final 03/29/22 06:08 Nasal Secretion SARS-CoV-2 Antigen (Rapid) - Final 03/27/22 05:00 Nasal Secretion SARS-CoV-2 Antigen (Rapid) - Final Physical Exam Const alert General Appearance: cooperative HEENT normocephalic Eyes PERRL and EOMs intact bilaterally Neck supple, no JVD and no carotid bruits Resp normal respiratory effort, normal air movement and clear to auscultation bilaterally Cardio regular rate and regular rhythm GI normal to inspection, nondistended, normoactive bowel sounds, non-tender and non-distended Extremity normal capillary refill Extremity Narrative: Right foot amputation site per Wound photos. General Extremity: Negative for edema Skin no rashes or lesions noted General Skin Exam: no breakdown Psych affect normal Appearance: appropriate Assessment & Plan Assessment/Plan (1) Debility: (2) History of Lisfranc amputation of right foot: (3) Acquired absence of other right toe(s): (4) Non-pressure chronic ulcer of other part of right foot with fat layer exposed: (5) Osteomyelitis of right foot: (6) Atherosclerosis of [place] arteries of extremities with gangrene, right leg: (7) Type 2 diabetes mellitus with diabetic polyneuropathy: QUALIFIERS: Diabetes mellitus jail insulin use: without jail use Qualified Code(s): E11.42 - Type 2 diabetes mellitus with diabetic polyneuropathy (8) Diabetic ulcer of foot associated with diabetes mellitus due to underlying condition, with fat layer exposed: (9) Hypertension: (10) Hyperlipidemia: (11) Iron deficiency anemia: (12) Peripheral arterial occlusive disease: PLAN: Plan 76 year old female with below past medical history significant for diabetes, osteomyelitis of right foot hospitalized for Lisfranc amputation of right foot 03/21/[address] Zuiñga, admitted to TCU with debility, here for rehabilitation, strengthening, prior to discharge home with family. * Debility - PT/OT. * Dysphagia - ST. * Pain - Tylenol 1000mg q6h prn pain (1-3), Tramadol 50mg q6h prn pain (4-10). * Bowel - senna/colace 1 tablet bid, Dulcolax 10mg pr x1 prn, MOM 30ml po x 1 prn, Loperamide 2mg q2h prn diarrhea. * Adult immunization - Administer pneumonia vaccine, covid19 vaccine, flu vaccine as appropriate. * DVT prophylaxis - Hold, anemic, on dual antiplatelet therapy. * Osteomyelitis right foot status post lisfranc amputation - Dr. Zuñiga on board, may require right BKA in future. * Iron deficiency anemia - Ferrous sulfate 325mg daily, Vitamin C 500mg daily. * Peripheral arterial occlusive disease - Aspirin 81mg daily, Plavix 75mg daily. * Hyperlipidemia - Atorvastatin 80mg qhs. * Nutrition - Glucerna Shake 120ml 4x/day, Pavel 1 packet bid, MVI daily. * Diabetes Mellitus II - Metformin 1000mg bidcm, Glargine 17 units bid, Lispro 11 units tidac. * Skin irritation - Calmoseptine topical bid. * Tinea Corporis - Nystatin powder topical bid, Fluconazole 150mg po qweek x 4 weeks, Ketconazole cream topical bid. * Essential tremor - Propranolol 80mg daily prn. Capacity Capacity Assessment Tool Can the patient make a choice & communicate that choice?: Yes Can the patient understand benefits, risks and alternatives?: Yes Can the patient make a logical, rational choice?: Yes Is the choice the patient makes consistent w/ their values?: Yes Is there an impending, emergent risk to the patient?: No Does the patient have an Advance Directive?: No Is there a Surrogate Available?: Yes i.e. HCPOA: Yes i.e. close relative (spouse, child, parent, sibling)?: Yes
[2022-04-21] MEDS: Atorvastatin Calcium 40 MG Tablet 80 MG PO (21:46)
[2022-04-21 22:10] LABS: Bedside Glucose 126 mg/dL (74-106)
[2022-04-22] MEDS: Ketoconazole Cream 1 APPLIC TOPICAL ×2 (05:16→20:55)
[2022-04-22] MEDS: Senna/Docusate Sodium 1 Tablet PO (05:17)
[2022-04-22] MEDS: Glucerna Shake 120 ML LIQUID PO ×3 (05:17→20:53)
[2022-04-22] MEDS: Clopidogrel Bisulfate 75 MG Tablet PO (05:17)
[2022-04-22 06:31] LABS: Bedside Glucose 160 mg/dL (74-106)
[2022-04-22] MEDS: Multivitamins,Therapeutic Tablet 1 TABLET PO (08:29)
[2022-04-22] MEDS: metFORMIN HCl 1,000 MG Tablet 1000 MG PO ×2 (08:29→17:46)
[2022-04-22] MEDS: Juven (unflavored) Packet 1 PACKET PO ×2 (08:29→17:47)
[2022-04-22] MEDS: Ascorbic Acid 500 MG Tablet PO (08:29)
[2022-04-22] MEDS: Ferrous Sulfate 325 MG Tablet PO (08:30)
[2022-04-22] MEDS: Insulin Glargine-YFGN 100 UNIT/ML Pen 17 UNIT SC ×2 (08:30→21:48)
[2022-04-22] MEDS: Aspirin 81 MG TAB.CHEW PO (08:30)
[2022-04-22] MEDS: Insulin Lispro 100 UNIT/ML INSULN.PEN 11 UNIT SC ×3 (08:30→17:46)
[2022-04-22] MEDS: Nystatin Powder 15gm Bottle 1 APPLIC TOPICAL ×2 (08:38→20:55)
[2022-04-22] MEDS: Menthol/Lanolin/Calamine/Znox 113 GM Tube 1 APPLIC TOPICAL ×2 (08:38→20:56)
[2022-04-22 10:56] VITALS: BMI 34.0
[2022-04-22 11:20] LABS: Bedside Glucose 258 mg/dL (74-106)
[2022-04-22 14:29] VITALS: BP 110/55; PULSE 85; RESP 16; TEMP 36.3; O2SAT 97
[2022-04-22 17:05] LABS: Bedside Glucose 155 mg/dL (74-106)
[2022-04-22] MEDS: Atorvastatin Calcium 40 MG Tablet 80 MG PO (20:53)
[2022-04-22 21:00] VITALS: PULSE 92; RESP 16; O2SAT 97
[2022-04-22 21:41] LABS: Bedside Glucose 158 mg/dL (74-106)
[2022-04-23] MEDS: Glucerna Shake 120 ML LIQUID PO ×4 (04:44→20:43)
[2022-04-23] MEDS: Clopidogrel Bisulfate 75 MG Tablet PO (04:44)
[2022-04-23] MEDS: Ketoconazole Cream 1 APPLIC TOPICAL (04:48)
[2022-04-23 05:55] LABS: Absolute Lymphocyte Count 4.24 X10^3/uL (0.83-4.51); Absolute Neutrophil Count 5.4 X10^3/uL (2.0-7.7); Basophil# 0.07 X10^3/uL; Basophil% 0.6 % (0-1); Eosinophil# 0.64 X10^3/uL; Eosinophils% 5.7 % (0-5); Hematocrit 36.2 % (37-47); Hemoglobin 11.2 g/dL (12.0-15.0); Lymphocyte # 4.24 X10^3/ul (0.83-4.51); Lymphocyte % 38.1 % (19-41); Mean Corp Hgb Conc 30.9 g/dL (32-36); Mean Corpuscular Hgb 28.1 pg (27.0-32.0); Mean Corpuscular Volume 90.7 fL (81-99); Mean Platelet Vol. 11.6 fl (6.2-12.0); Monocyte# 0.79 X10^3/uL; Monocyte% 7.1 % (0-10); NRBC Flagged by Analyzer 0 % (0-5); Neutrophil # 5.35 X10^3/uL (2.7-7.7); Neutrophil % 48.1 % (47-70); Platelet Count 342 K/mm3 (150-450); RBC Distribution Width CV 16.1 % (11.6-14.6); RBC Distribution Width SD 53.8 fl (35.1-43.9); Red Blood Count 3.99 M/mm3 (4.2-5.4); White Blood Count 11.1 K/mm3 (4.4-11.0)
[2022-04-23 06:38] LABS: Anion Gap 9 (5-15); BUN 46 mg/dL (7-18); BUN/Creat Ratio 50.7 RATIO (10-20); Calcium,Total 10.2 mg/dL (8.5-10.1); Chloride 106 mmol/L (98-107); Creatinine, Serum 0.91 mg/dL (0.55-1.02); EST Glomerular Filtration Rate 64 mL/min (>60); Est Glom Filt Rate - Afr Amer 78 mL/min (>60); Glucose 138 mg/dL (74-106); Sodium Level 141 mmol/L (136-145)
[2022-04-23 06:40] LABS: Bedside Glucose 130 mg/dL (74-106)
[2022-04-23] MEDS: Insulin Lispro 100 UNIT/ML INSULN.PEN 11 UNIT SC ×3 (08:08→18:17)
[2022-04-23] MEDS: FLUCONAZOLE 150 MG TABLET PO (08:09)
[2022-04-23] MEDS: metFORMIN HCl 1,000 MG Tablet 1000 MG PO ×2 (08:09→18:18)
[2022-04-23] MEDS: Ferrous Sulfate 325 MG Tablet PO (08:09)
[2022-04-23] MEDS: Insulin Glargine-YFGN 100 UNIT/ML Pen 17 UNIT SC ×2 (08:09→21:51)
[2022-04-23] MEDS: Aspirin 81 MG TAB.CHEW PO (08:09)
[2022-04-23] MEDS: Juven (unflavored) Packet 1 PACKET PO ×2 (08:10→18:18)
[2022-04-23] MEDS: Ascorbic Acid 500 MG Tablet PO (08:10)
[2022-04-23] MEDS: Multivitamins,Therapeutic Tablet 1 TABLET PO (08:10)
[2022-04-23 11:36] LABS: Bedside Glucose 164 mg/dL (74-106)
[2022-04-23] MEDS: Menthol/Lanolin/Calamine/Znox 113 GM Tube 1 APPLIC TOPICAL ×2 (12:12→20:45)
[2022-04-23] MEDS: Nystatin Powder 15gm Bottle 1 APPLIC TOPICAL ×2 (12:13→20:45)
[2022-04-23 15:48] VITALS: BP 134/67; PULSE 86; RESP 16; TEMP 36.4; O2SAT 94
[2022-04-23 16:41] LABS: Bedside Glucose 96 mg/dL (74-106)
[2022-04-23] MEDS: Atorvastatin Calcium 40 MG Tablet 80 MG PO (20:45)
[2022-04-23 21:46] LABS: Bedside Glucose 150 mg/dL (74-106)
[2022-04-24] MEDS: Glucerna Shake 120 ML LIQUID PO ×3 (04:58→21:28)
[2022-04-24] MEDS: Clopidogrel Bisulfate 75 MG Tablet PO (04:59)
[2022-04-24 06:30] LABS: Bedside Glucose 124 mg/dL (74-106)
[2022-04-24] MEDS: Insulin Glargine-YFGN 100 UNIT/ML Pen 17 UNIT SC ×2 (08:45→21:30)
[2022-04-24] MEDS: Multivitamins,Therapeutic Tablet 1 TABLET PO (08:46)
[2022-04-24] MEDS: metFORMIN HCl 1,000 MG Tablet 1000 MG PO ×2 (08:46→18:05)
[2022-04-24] MEDS: Insulin Lispro 100 UNIT/ML INSULN.PEN 11 UNIT SC ×2 (08:46→18:04)
[2022-04-24] MEDS: Ascorbic Acid 500 MG Tablet PO (08:46)
[2022-04-24] MEDS: Aspirin 81 MG TAB.CHEW PO (08:47)
[2022-04-24] MEDS: Juven (unflavored) Packet 1 PACKET PO ×2 (08:47→18:05)
[2022-04-24] MEDS: Ferrous Sulfate 325 MG Tablet PO (08:47)
[2022-04-24] MEDS: Nystatin Powder 15gm Bottle 1 APPLIC TOPICAL ×2 (12:07→21:33)
[2022-04-24] MEDS: Menthol/Lanolin/Calamine/Znox 113 GM Tube 1 APPLIC TOPICAL ×2 (12:08→21:28)
--- NOTE | 2022-04-24 14:30 | NURSING ---
Pt off unit with family for Dr. John ayala.
[2022-04-24 15:30] VITALS: BP 126/63; PULSE 91; RESP 16; TEMP 36.2; O2SAT 96
[2022-04-24 16:26] LABS: Bedside Glucose 182 mg/dL (74-106)
--- NOTE | 2022-04-24 16:30 | NURSING ---
Pt returned from appt with Dr. Lopez no new orders at this time. Per Daughter and pt Dr. Lopez stated there was good blood flow to RLE. Dr. Lopez would like to f/u in 2 weeks.
[2022-04-24 20:20] VITALS: BP 117/53; PULSE 84; RESP 18; TEMP 36.3; O2SAT 95
[2022-04-24 20:21] VITALS: PULSE 85; RESP 18; O2SAT 95
[2022-04-24] MEDS: Atorvastatin Calcium 40 MG Tablet 80 MG PO (21:31)
[2022-04-24 21:50] LABS: Bedside Glucose 127 mg/dL (74-106)
[2022-04-25] MEDS: Glucerna Shake 120 ML LIQUID PO ×4 (05:34→20:32)
[2022-04-25] MEDS: Clopidogrel Bisulfate 75 MG Tablet PO (05:34)
[2022-04-25 06:45] LABS: Bedside Glucose 129 mg/dL (74-106)
[2022-04-25] MEDS: Aspirin 81 MG TAB.CHEW PO (08:08)
[2022-04-25] MEDS: Insulin Lispro 100 UNIT/ML INSULN.PEN 11 UNIT SC ×2 (08:08→12:08)
[2022-04-25] MEDS: Ascorbic Acid 500 MG Tablet PO (08:09)
[2022-04-25] MEDS: Ferrous Sulfate 325 MG Tablet PO (08:09)
[2022-04-25] MEDS: Insulin Glargine-YFGN 100 UNIT/ML Pen 17 UNIT SC ×2 (08:09→22:52)
[2022-04-25] MEDS: Juven (unflavored) Packet 1 PACKET PO ×2 (08:09→17:12)
[2022-04-25] MEDS: Multivitamins,Therapeutic Tablet 1 TABLET PO (08:09)
[2022-04-25] MEDS: metFORMIN HCl 1,000 MG Tablet 1000 MG PO ×2 (08:09→17:12)
[2022-04-25 11:36] LABS: Bedside Glucose 131 mg/dL (74-106)
[2022-04-25] MEDS: Menthol/Lanolin/Calamine/Znox 113 GM Tube 1 APPLIC TOPICAL ×2 (12:06→20:32)
[2022-04-25] MEDS: Nystatin Powder 15gm Bottle 1 APPLIC TOPICAL ×2 (12:10→20:33)
[2022-04-25 14:31] VITALS: BP 108/52; PULSE 81; RESP 16; TEMP 35.9; O2SAT 93
[2022-04-25 16:36] LABS: Bedside Glucose 85 mg/dL (74-106)
[2022-04-25 17:40] LABS: Bedside Glucose 124 mg/dL (74-106)
--- NOTE | 2022-04-25 18:28 | NURSING ---
BS 84 at dinner time. Recheck BS after eating and BS 124. Held Humalog.
[2022-04-25] MEDS: Atorvastatin Calcium 40 MG Tablet 80 MG PO (20:33)
[2022-04-25 21:40] LABS: Bedside Glucose 157 mg/dL (74-106)
[2022-04-26 06:31] LABS: Bedside Glucose 135 mg/dL (74-106)
[2022-04-26] MEDS: Clopidogrel Bisulfate 75 MG Tablet PO (06:42)
[2022-04-26] MEDS: Glucerna Shake 120 ML LIQUID PO ×4 (06:42→20:36)
[2022-04-26] MEDS: Multivitamins,Therapeutic Tablet 1 TABLET PO (08:13)
[2022-04-26] MEDS: Ascorbic Acid 500 MG Tablet PO (08:13)
[2022-04-26] MEDS: Juven (unflavored) Packet 1 PACKET PO ×2 (08:13→17:40)
[2022-04-26] MEDS: Insulin Glargine-YFGN 100 UNIT/ML Pen 17 UNIT SC ×2 (08:14→21:40)
[2022-04-26] MEDS: Ferrous Sulfate 325 MG Tablet PO (08:14)
[2022-04-26] MEDS: Aspirin 81 MG TAB.CHEW PO (08:14)
[2022-04-26] MEDS: metFORMIN HCl 1,000 MG Tablet 1000 MG PO ×2 (08:14→17:36)
[2022-04-26] MEDS: Insulin Lispro 100 UNIT/ML INSULN.PEN 11 UNIT SC ×2 (08:18→12:04)
[2022-04-26 10:00] VITALS: PULSE 87; O2SAT 97
[2022-04-26 11:30] LABS: Bedside Glucose 133 mg/dL (74-106)
[2022-04-26] MEDS: Nystatin Powder 15gm Bottle 1 APPLIC TOPICAL ×2 (12:07→20:39)
[2022-04-26] MEDS: Menthol/Lanolin/Calamine/Znox 113 GM Tube 1 APPLIC TOPICAL ×2 (12:07→20:39)
[2022-04-26 15:59] VITALS: BP 129/60; PULSE 79; RESP 14; TEMP 36.2; O2SAT 98
[2022-04-26 17:51] LABS: Bedside Glucose 100 mg/dL (74-106)
[2022-04-26] MEDS: Atorvastatin Calcium 40 MG Tablet 80 MG PO (20:36)
[2022-04-26 21:51] LABS: Bedside Glucose 211 mg/dL (74-106)
[2022-04-27] MEDS: Glucerna Shake 120 ML LIQUID PO ×4 (05:58→20:36)
[2022-04-27] MEDS: Clopidogrel Bisulfate 75 MG Tablet PO (05:59)
[2022-04-27 06:31] LABS: Bedside Glucose 166 mg/dL (74-106)
[2022-04-27] MEDS: Insulin Lispro 100 UNIT/ML INSULN.PEN 11 UNIT SC ×3 (08:26→17:29)
[2022-04-27] MEDS: Ascorbic Acid 500 MG Tablet PO (08:27)
[2022-04-27] MEDS: Insulin Glargine-YFGN 100 UNIT/ML Pen 17 UNIT SC ×2 (08:27→21:29)
[2022-04-27] MEDS: Juven (unflavored) Packet 1 PACKET PO ×2 (08:27→17:34)
[2022-04-27] MEDS: Aspirin 81 MG TAB.CHEW PO (08:28)
[2022-04-27] MEDS: metFORMIN HCl 1,000 MG Tablet 1000 MG PO ×2 (08:28→17:30)
[2022-04-27] MEDS: Multivitamins,Therapeutic Tablet 1 TABLET PO (08:28)
[2022-04-27] MEDS: Ferrous Sulfate 325 MG Tablet PO (08:29)
[2022-04-27] MEDS: Nystatin Powder 15gm Bottle 1 APPLIC TOPICAL ×2 (08:33→21:31)
[2022-04-27] MEDS: Menthol/Lanolin/Calamine/Znox 113 GM Tube 1 APPLIC TOPICAL ×2 (08:34→20:39)
[2022-04-27 11:21] LABS: Bedside Glucose 163 mg/dL (74-106)
[2022-04-27 15:42] VITALS: BP 124/58; PULSE 84; RESP 16; TEMP 36.2; O2SAT 99
[2022-04-27 17:06] LABS: Bedside Glucose 164 mg/dL (74-106)
[2022-04-27 20:30] VITALS: PULSE 84; RESP 16; O2SAT 96
[2022-04-27] MEDS: Atorvastatin Calcium 40 MG Tablet 80 MG PO (20:36)
[2022-04-27 21:45] LABS: Bedside Glucose 143 mg/dL (74-106)
--- NOTE | 2022-04-28 01:03 | NURSING ---
Dressing changed per order. Patient tolerated well. No s/sx infection. Will continue to monitor.
[2022-04-28] MEDS: Glucerna Shake 120 ML LIQUID PO ×4 (05:17→22:07)
[2022-04-28] MEDS: Clopidogrel Bisulfate 75 MG Tablet PO (05:17)
[2022-04-28 07:10] LABS: Bedside Glucose 212 mg/dL (74-106)
[2022-04-28] MEDS: Insulin Lispro 100 UNIT/ML INSULN.PEN 11 UNIT SC ×3 (07:45→17:42)
[2022-04-28] MEDS: Juven (unflavored) Packet 1 PACKET PO ×2 (08:04→17:41)
[2022-04-28] MEDS: Ascorbic Acid 500 MG Tablet PO (08:04)
[2022-04-28] MEDS: Ferrous Sulfate 325 MG Tablet PO (08:04)
[2022-04-28] MEDS: Aspirin 81 MG TAB.CHEW PO (08:04)
[2022-04-28] MEDS: metFORMIN HCl 1,000 MG Tablet 1000 MG PO ×2 (08:04→17:41)
[2022-04-28] MEDS: Insulin Glargine-YFGN 100 UNIT/ML Pen 17 UNIT SC ×2 (08:04→22:10)
[2022-04-28] MEDS: Multivitamins,Therapeutic Tablet 1 TABLET PO (08:07)
[2022-04-28] MEDS: Menthol/Lanolin/Calamine/Znox 113 GM Tube 1 APPLIC TOPICAL ×2 (08:07→22:08)
[2022-04-28] MEDS: Nystatin Powder 15gm Bottle 1 APPLIC TOPICAL ×2 (08:07→22:08)
[2022-04-28 10:00] VITALS: PULSE 83; O2SAT 96
[2022-04-28 11:31] LABS: Bedside Glucose 296 mg/dL (74-106)
--- NOTE | 2022-04-28 12:38 | PCM.PROGNOTE ---
Subjective Subjective Patient is seen bedside following lunch resting in chair with feet elevated. Jeeucupi-ii-kbe is present and visiting today. She denies any constitutional symptoms currently. Denies any pain to the left foot. Denies any further complaints. Objective Data Objective Data Vital Signs: Vital Signs Temp Pulse Resp BP Pulse Ox O2 Del Method O2 Flow Rate 97.2 F L 83 16 124/58 H 96 Room Air 93 04/27/22 15:42 04/28/22 10:00 04/27/22 20:30 04/27/22 15:42 04/28/22 10:00 04/28/22 10:00 04/16/22 14:00 Oxygen Flow Rate (L/min) 93 Oxygen Delivery Method Room Air Weight: 92.624 kg Body Mass Index (BMI) 34.0 Intake & Output: Intake and Output for Last 24 Hours 04/26/22 04/27/22 04/28/22 23:59 23:59 23:59 Intake Total 240 / 240 720 / 720 400 / 400 Balance 240 / 240 720 / 720 400 / 400 Lab / Micro Data Result Diagrams: 04/23/22 05:30 04/23/22 05:30 Labs: Laboratory Results - last 24 hr 04/27/22 16:45: POC Glucose 164 H 04/27/22 21:24: POC Glucose 143 H 04/28/22 06:06: POC Glucose 212 H 04/28/22 11:08: POC Glucose 296 H Micro: Microbiology 04/04/22 13:42 Stool Stool Occult Blood (MARINO) - Final 03/29/22 06:08 Nasal Secretion SARS-CoV-2 Antigen (Rapid) - Final 03/27/22 05:00 Nasal Secretion SARS-CoV-2 Antigen (Rapid) - Final Physical Exam Const alert, oriented x3, no apparent distress and well nourished General Appearance: cooperative HEENT normocephalic Eyes General Eye: normal appearance of both eyes Neck General: normal visual inspection Lymph Lymphatic: no lymphadenopathy noted and no lymphedema noted Resp normal respiratory effort Cardio regular rate and regular rhythm Extremity normal capillary refill, no joint enlargement, no calf tenderness and no pedal edema Extremity Narrative: Right lower extremity Lisfranc amputation noted. Distal stump appears healthy and well perfused with dried eschar about the incision margins. No signs of infection. There is a plantar lateral opening secondary to continuous serosanguineous drainage with breakdown of the skin. There is fibrotic tissue noted in the underlying wound. Skin no rashes or lesions noted, skin turgor normal and no jaundice Neuro moves all extremities Assessment & Plan Assessment/Plan (1) Obesity (BMI 30-39.9): (2) Type 2 diabetes mellitus with diabetic polyneuropathy: QUALIFIERS: Diabetes mellitus group home insulin use: without terminal computer operator use Qualified Code(s): E11.42 - Type 2 diabetes mellitus with diabetic polyneuropathy (3) Atherosclerosis of [place] arteries of extremities with gangrene, right leg: (4) History of Lisfranc amputation of right foot: (5) Iron deficiency anemia: (6) Debility: PLAN: Plan Patient seen and evaluated Patient had undergone Lisfranc amputation of the right foot. DOS 03/21/2022. POD #38 She is admitted to transitional care unit to build strength and rehabilitation prior to being discharged home as well as remaining compliant with postoperative instructions and strict nonweightbearing status. Surgery 03/21/2022: During the debridement the remaining tissue was noted to be healthy and the remaining bone noted to be of good color and quality. Prior to closure site was irrigated with copious amounts of normal sterile saline, Irrisept, and 1 g of vancomycin powder was placed prior to closure. Surgical cultures from 03/21/2022: Cultures at time of surgery for both tissue and bone of the fourth metatarsal demonstrate PsA, Proteus, and E faecalis. ID recommending 1 week oral antibiotic ciprofloxacin and Augmentin. She has finished oral antibiotics. Today dressings were taken down and the distal amputation stump of the right foot is noted to have dried eschar about the incision margins. No signs of infection. There is adequate perfusion noted to the distal stump of the Lisfranc amputation site. Skin flap demonstrate darken with eschar around incision sites with slight purplish discoloration laterally, small area of dehiscence with yellow fibrotic tissue in the wound bed at the plantar lateral aspect draining serosanguineous fluid. Medial aspect of the skin flap demonstrates healthy appearance. Site continues to do well post-operative and denies pain. Edema improving. Dressings changed today consisting of Betadine, Aquacel Ag, 4 x 4 gauze, ABD x2, Kerlix. Patient to continue to elevate lower extremity at all times of rest to control postoperative edema. Discussed with her that she has a small area of dehiscence at the plantar aspect which we are treating with Aquacel Ag and she needs to continue to be mindful of edema and to not walk until cleared. Reminded her again that even though therapy is working with her for her strength and rehabilitation that she is to maintain a strict nonweightbearing status to the right lower extremity. I have discussed with her and family today that if she continues to undergo further dehiscence or becomes infected or the amputation and flap fail that she may require a below the knee amputation. Patient and family voiced understanding of our discussion. Patient did see Dr. Lopez 04/22/2022 in which she feels soft tissue flap does have adequate perfusion to the site in which eschar will slowly slough off. He has talked to her about proximal amputation if required. Does have another appointment with Dr. Lopez, vascular surgeon scheduled next week. Encourage protein diet with Pavel supplementation to aid healing. Also encouraged continued diabetic diet to maintain adequate control of sugars to aid healing. Wound nurse has been consulted for aid in dressing changes. Dressings to be changed every other day. I will continue to follow for postoperative management. Please not hesitate to call for any questions or concerns Jr. Fern Guerrero.P.M. [facility] [place] [phone]
[2022-04-28 13:49] VITALS: BP 112/53; PULSE 82; RESP 21; TEMP 36.2; O2SAT 96
--- NOTE | 2022-04-28 13:59 | WOUNDNOTE ---
wound photo: right foot
--- NOTE | 2022-04-28 14:00 | WOUNDNOTE ---
wound photo: right foot
--- NOTE | 2022-04-28 14:00 | WOUNDNOTE ---
wound photo: right heel
[2022-04-28 16:41] LABS: Bedside Glucose 212 mg/dL (74-106)
[2022-04-28 21:56] LABS: Bedside Glucose 220 mg/dL (74-106)
[2022-04-28] MEDS: Atorvastatin Calcium 40 MG Tablet 80 MG PO (22:09)
[2022-04-29] MEDS: Clopidogrel Bisulfate 75 MG Tablet PO (06:15)
[2022-04-29] MEDS: Glucerna Shake 120 ML LIQUID PO ×4 (06:15→20:25)
[2022-04-29 06:30] LABS: Bedside Glucose 217 mg/dL (74-106)
[2022-04-29] MEDS: Juven (unflavored) Packet 1 PACKET PO ×2 (08:06→17:29)
[2022-04-29] MEDS: Aspirin 81 MG TAB.CHEW PO (08:07)
[2022-04-29] MEDS: Ascorbic Acid 500 MG Tablet PO (08:07)
[2022-04-29] MEDS: metFORMIN HCl 1,000 MG Tablet 1000 MG PO ×2 (08:07→17:30)
[2022-04-29] MEDS: Insulin Glargine-YFGN 100 UNIT/ML Pen 17 UNIT SC ×2 (08:07→22:00)
[2022-04-29] MEDS: Ferrous Sulfate 325 MG Tablet PO (08:07)
[2022-04-29] MEDS: Multivitamins,Therapeutic Tablet 1 TABLET PO (08:07)
[2022-04-29] MEDS: Insulin Lispro 100 UNIT/ML INSULN.PEN 11 UNIT SC ×3 (08:08→17:30)
[2022-04-29] MEDS: Menthol/Lanolin/Calamine/Znox 113 GM Tube 1 APPLIC TOPICAL ×2 (08:14→20:26)
[2022-04-29] MEDS: Nystatin Powder 15gm Bottle 1 APPLIC TOPICAL ×2 (08:14→20:26)
[2022-04-29 09:55] VITALS: BMI 33.1
[2022-04-29 11:51] LABS: Bedside Glucose 336 mg/dL (74-106)
[2022-04-29 15:10] VITALS: BP 138/50; PULSE 79; RESP 14; TEMP 35.9; O2SAT 97
--- NOTE | 2022-04-29 17:07 | CASEMGMT ---
Social Work IDT inquiring about DC plans for pt. Charge nurse spoke with wound nurse and wound Dr whom stated pt can DC home, but must follow strict NWB. SW spoke with pt and dtr in room to update on above. SW to coordinate sabina lift to adhere to NWB transfers. Dtr to speak with family and notify this worker if/when to set DC date. Will continue to follow. PURVI NashW
[2022-04-29 17:15] LABS: Bedside Glucose 176 mg/dL (74-106)
[2022-04-29] MEDS: Senna/Docusate Sodium 1 Tablet PO (17:29)
[2022-04-29] MEDS: Atorvastatin Calcium 40 MG Tablet 80 MG PO (20:26)
[2022-04-29 21:20] LABS: Bedside Glucose 198 mg/dL (74-106)
[2022-04-29 21:49] VITALS: PULSE 80; RESP 16; O2SAT 96
[2022-04-30] MEDS: Clopidogrel Bisulfate 75 MG Tablet PO (05:31)
[2022-04-30] MEDS: Glucerna Shake 120 ML LIQUID PO ×4 (05:31→22:25)
[2022-04-30 05:45] LABS: Absolute Lymphocyte Count 4.17 X10^3/uL (0.83-4.51); Absolute Neutrophil Count 4.5 X10^3/uL (2.0-7.7); Basophil# 0.07 X10^3/uL; Basophil% 0.7 % (0-1); Eosinophil# 0.59 X10^3/uL; Eosinophils% 5.9 % (0-5); Hematocrit 36.2 % (37-47); Hemoglobin 11.2 g/dL (12.0-15.0); Lymphocyte # 4.17 X10^3/ul (0.83-4.51); Lymphocyte % 41.6 % (19-41); Mean Corp Hgb Conc 30.9 g/dL (32-36); Mean Corpuscular Hgb 28.1 pg (27.0-32.0); Mean Platelet Vol. 11.8 fl (6.2-12.0); Monocyte# 0.65 X10^3/uL; Monocyte% 6.5 % (0-10); NRBC Flagged by Analyzer 0 % (0-5); Neutrophil # 4.51 X10^3/uL (2.7-7.7); Platelet Count 289 K/mm3 (150-450); RBC Distribution Width SD 54.2 fl (35.1-43.9); Red Blood Count 3.98 M/mm3 (4.2-5.4)
[2022-04-30 06:09] LABS: Anion Gap 9 (5-15); BUN 45 mg/dL (7-18); BUN/Creat Ratio 51.7 RATIO (10-20); Chloride 107 mmol/L (98-107); Creatinine, Serum 0.87 mg/dL (0.55-1.02); EST Glomerular Filtration Rate 67 mL/min (>60); Est Glom Filt Rate - Afr Amer 82 mL/min (>60); Estimated Creatinine Clearance 51.05 ml/min; Glucose 186 mg/dL (74-106); Potassium 3.9 mmol/L (3.5-5.1); Sodium Level 142 mmol/L (136-145)
[2022-04-30 06:41] LABS: Bedside Glucose 190 mg/dL (74-106)
[2022-04-30] MEDS: Insulin Lispro 100 UNIT/ML INSULN.PEN 11 UNIT SC ×3 (08:48→16:58)
[2022-04-30] MEDS: Ferrous Sulfate 325 MG Tablet PO (08:48)
[2022-04-30] MEDS: Aspirin 81 MG TAB.CHEW PO (08:48)
[2022-04-30] MEDS: metFORMIN HCl 1,000 MG Tablet 1000 MG PO ×2 (08:49→16:59)
[2022-04-30] MEDS: FLUCONAZOLE 150 MG TABLET PO (08:49)
[2022-04-30] MEDS: Insulin Glargine-YFGN 100 UNIT/ML Pen 17 UNIT SC ×2 (08:49→22:24)
[2022-04-30] MEDS: Ascorbic Acid 500 MG Tablet PO (08:49)
[2022-04-30] MEDS: Multivitamins,Therapeutic Tablet 1 TABLET PO (08:49)
[2022-04-30] MEDS: Nystatin Powder 15gm Bottle 1 APPLIC TOPICAL ×2 (08:50→22:24)
[2022-04-30] MEDS: Menthol/Lanolin/Calamine/Znox 113 GM Tube 1 APPLIC TOPICAL ×2 (08:50→22:29)
[2022-04-30 11:31] LABS: Bedside Glucose 324 mg/dL (74-106)
[2022-04-30 14:04] VITALS: BP 123/60; PULSE 87; RESP 16; TEMP 36.4; O2SAT 96
[2022-04-30 17:01] LABS: Bedside Glucose 211 mg/dL (74-106)
[2022-04-30 21:35] LABS: Bedside Glucose 199 mg/dL (74-106)
[2022-04-30] MEDS: Atorvastatin Calcium 40 MG Tablet 80 MG PO (22:24)
[2022-05-01 05:58] VITALS: BP 128/61; PULSE 80; RESP 17; TEMP 36.7; O2SAT 96
[2022-05-01] MEDS: Clopidogrel Bisulfate 75 MG Tablet PO (06:01)
[2022-05-01] MEDS: Glucerna Shake 120 ML LIQUID PO ×4 (06:01→22:05)
[2022-05-01 06:45] LABS: Bedside Glucose 207 mg/dL (74-106)
[2022-05-01] MEDS: Insulin Lispro 100 UNIT/ML INSULN.PEN 11 UNIT SC ×3 (06:58→18:01)
[2022-05-01] MEDS: Aspirin 81 MG TAB.CHEW PO (08:31)
[2022-05-01] MEDS: Juven (unflavored) Packet 1 PACKET PO ×2 (08:31→18:01)
[2022-05-01] MEDS: Ascorbic Acid 500 MG Tablet PO (08:31)
[2022-05-01] MEDS: Insulin Glargine-YFGN 100 UNIT/ML Pen 17 UNIT SC ×2 (08:31→22:05)
[2022-05-01] MEDS: metFORMIN HCl 1,000 MG Tablet 1000 MG PO ×2 (08:31→18:01)
[2022-05-01] MEDS: Multivitamins,Therapeutic Tablet 1 TABLET PO (08:31)
[2022-05-01] MEDS: Ferrous Sulfate 325 MG Tablet PO (08:31)
[2022-05-01] MEDS: Menthol/Lanolin/Calamine/Znox 113 GM Tube 1 APPLIC TOPICAL ×2 (08:32→23:01)
[2022-05-01] MEDS: Nystatin Powder 15gm Bottle 1 APPLIC TOPICAL ×2 (08:32→23:01)
[2022-05-01 10:00] VITALS: PULSE 80; O2SAT 97
[2022-05-01 11:30] LABS: Bedside Glucose 236 mg/dL (74-106)
[2022-05-01 15:21] VITALS: BP 108/57; PULSE 83; RESP 19; TEMP 36.1; O2SAT 96
[2022-05-01 16:16] LABS: Bedside Glucose 183 mg/dL (74-106)
--- NOTE | 2022-05-01 16:40 | CASEMGMT ---
Social Work SWATI [facility] to update on Dr. Zuñiga agreeable for DC if pt/family agree to maintain strict NWB at home. However, family prefers to remain in TCU until pt can walk again, which is an unknown timeframe. SW suggested for liaison to update [facility] about the max amount of time/money agreeable to pay for pt, as IDT will not be setting a DC date if pt is not wanting to DC home. Liaison agreed to speak with and update this worker. SWATI spoke with dtr, Maryann, to answer questions and explain above information again. Dtr was under the understanding Dr. Zuñiga stated pt could not return home until can walk again. SW confirmed with wound nurse that above statement remains true. Dtr repeated back information to confirm understanding. Dtr stated pt has appt with Dr. Lopez on 05/08 and will not DC prior to then. SW requested a three day notice before DC to get needs coordinated. Dtr agreed. SW to continue to follow. PURVI NashW
[2022-05-01 21:51] LABS: Bedside Glucose 199 mg/dL (74-106)
[2022-05-01] MEDS: Atorvastatin Calcium 40 MG Tablet 80 MG PO (22:05)
[2022-05-02] MEDS: Glucerna Shake 120 ML LIQUID PO ×4 (05:00→21:56)
[2022-05-02] MEDS: Clopidogrel Bisulfate 75 MG Tablet PO (05:00)
[2022-05-02 06:40] LABS: Bedside Glucose 173 mg/dL (74-106)
[2022-05-02] MEDS: Insulin Lispro 100 UNIT/ML INSULN.PEN 11 UNIT SC ×3 (08:12→17:09)
[2022-05-02] MEDS: metFORMIN HCl 1,000 MG Tablet 1000 MG PO ×2 (08:14→17:09)
[2022-05-02] MEDS: Aspirin 81 MG TAB.CHEW PO (08:14)
[2022-05-02] MEDS: Insulin Glargine-YFGN 100 UNIT/ML Pen 17 UNIT SC ×2 (08:14→21:56)
[2022-05-02] MEDS: Ferrous Sulfate 325 MG Tablet PO (08:14)
[2022-05-02] MEDS: Juven (unflavored) Packet 1 PACKET PO ×2 (08:16→17:09)
[2022-05-02] MEDS: Ascorbic Acid 500 MG Tablet PO (08:16)
[2022-05-02] MEDS: Multivitamins,Therapeutic Tablet 1 TABLET PO (08:16)
[2022-05-02] MEDS: Menthol/Lanolin/Calamine/Znox 113 GM Tube 1 APPLIC TOPICAL ×2 (08:21→21:56)
[2022-05-02] MEDS: Nystatin Powder 15gm Bottle 1 APPLIC TOPICAL ×2 (08:21→22:02)
[2022-05-02 11:20] LABS: Bedside Glucose 220 mg/dL (74-106)
[2022-05-02 15:08] VITALS: BP 112/55; PULSE 83; RESP 16; TEMP 36.2; O2SAT 97
[2022-05-02 16:25] LABS: Bedside Glucose 141 mg/dL (74-106)
[2022-05-02] MEDS: Atorvastatin Calcium 40 MG Tablet 80 MG PO (21:57)
[2022-05-02 22:00] LABS: Bedside Glucose 141 mg/dL (74-106)
[2022-05-02 22:04] VITALS: PULSE 82; RESP 18; O2SAT 99
[2022-05-03] MEDS: Clopidogrel Bisulfate 75 MG Tablet PO (05:57)
[2022-05-03 06:25] LABS: Bedside Glucose 151 mg/dL (74-106)
[2022-05-03] MEDS: Insulin Lispro 100 UNIT/ML INSULN.PEN 11 UNIT SC ×3 (08:32→18:05)
[2022-05-03] MEDS: metFORMIN HCl 1,000 MG Tablet 1000 MG PO ×2 (08:33→18:06)
[2022-05-03] MEDS: Juven (unflavored) Packet 1 PACKET PO ×2 (08:33→18:06)
[2022-05-03] MEDS: Ferrous Sulfate 325 MG Tablet PO (08:33)
[2022-05-03] MEDS: Aspirin 81 MG TAB.CHEW PO (08:33)
[2022-05-03] MEDS: Insulin Glargine-YFGN 100 UNIT/ML Pen 17 UNIT SC ×2 (08:34→22:15)
[2022-05-03] MEDS: Multivitamins,Therapeutic Tablet 1 TABLET PO (08:34)
[2022-05-03] MEDS: Ascorbic Acid 500 MG Tablet PO (08:34)
[2022-05-03] MEDS: Nystatin Powder 15gm Bottle 1 APPLIC TOPICAL ×2 (08:43→20:36)
[2022-05-03] MEDS: Menthol/Lanolin/Calamine/Znox 113 GM Tube 1 APPLIC TOPICAL ×2 (08:44→20:36)
[2022-05-03] MEDS: Glucerna Shake 120 ML LIQUID PO ×3 (11:05→20:36)
[2022-05-03 11:16] LABS: Bedside Glucose 190 mg/dL (74-106)
[2022-05-03 12:48] VITALS: BP 115/57; PULSE 83; RESP 14; TEMP 37.1; O2SAT 97
[2022-05-03 12:50] VITALS: PULSE 83; RESP 16; O2SAT 95
[2022-05-03 16:30] LABS: Bedside Glucose 182 mg/dL (74-106)
[2022-05-03] MEDS: Atorvastatin Calcium 40 MG Tablet 80 MG PO (20:37)
[2022-05-03 21:36] LABS: Bedside Glucose 229 mg/dL (74-106)
[2022-05-04] MEDS: Glucerna Shake 120 ML LIQUID PO ×4 (06:02→20:26)
[2022-05-04] MEDS: Clopidogrel Bisulfate 75 MG Tablet PO (06:02)
[2022-05-04 06:36] LABS: Bedside Glucose 184 mg/dL (74-106)
[2022-05-04] MEDS: Ferrous Sulfate 325 MG Tablet PO (08:43)
[2022-05-04] MEDS: Aspirin 81 MG TAB.CHEW PO (08:43)
[2022-05-04] MEDS: Juven (unflavored) Packet 1 PACKET PO ×2 (08:43→18:16)
[2022-05-04] MEDS: metFORMIN HCl 1,000 MG Tablet 1000 MG PO ×2 (08:44→18:16)
[2022-05-04] MEDS: Multivitamins,Therapeutic Tablet 1 TABLET PO (08:44)
[2022-05-04] MEDS: Ascorbic Acid 500 MG Tablet PO (08:48)
[2022-05-04] MEDS: Menthol/Lanolin/Calamine/Znox 113 GM Tube 1 APPLIC TOPICAL ×2 (08:48→20:26)
[2022-05-04] MEDS: Insulin Lispro 100 UNIT/ML INSULN.PEN 11 UNIT SC ×3 (08:50→18:17)
[2022-05-04] MEDS: Insulin Glargine-YFGN 100 UNIT/ML Pen 17 UNIT SC ×2 (08:50→23:27)
[2022-05-04] MEDS: Nystatin Powder 15gm Bottle 1 APPLIC TOPICAL ×2 (08:56→23:28)
[2022-05-04 11:21] LABS: Bedside Glucose 248 mg/dL (74-106)
[2022-05-04 13:50] VITALS: BP 113/50; PULSE 83; RESP 16; TEMP 36.5; O2SAT 97
[2022-05-04 16:35] LABS: Bedside Glucose 176 mg/dL (74-106)
[2022-05-04] MEDS: Atorvastatin Calcium 40 MG Tablet 80 MG PO (20:26)
[2022-05-04 20:36] VITALS: PULSE 82; RESP 16; O2SAT 96
[2022-05-04 21:35] LABS: Bedside Glucose 219 mg/dL (74-106)
[2022-05-05] MEDS: Glucerna Shake 120 ML LIQUID PO ×4 (05:38→22:18)
[2022-05-05] MEDS: Clopidogrel Bisulfate 75 MG Tablet PO (05:39)
[2022-05-05 06:31] LABS: Bedside Glucose 178 mg/dL (74-106)
[2022-05-05] MEDS: Insulin Glargine-YFGN 100 UNIT/ML Pen 17 UNIT SC ×2 (08:12→22:19)
[2022-05-05] MEDS: Insulin Lispro 100 UNIT/ML INSULN.PEN 11 UNIT SC ×3 (08:12→18:33)
[2022-05-05] MEDS: Ascorbic Acid 500 MG Tablet PO (08:13)
[2022-05-05] MEDS: Juven (unflavored) Packet 1 PACKET PO ×2 (08:13→17:46)
[2022-05-05] MEDS: Multivitamins,Therapeutic Tablet 1 TABLET PO (08:13)
[2022-05-05] MEDS: metFORMIN HCl 1,000 MG Tablet 1000 MG PO ×2 (08:13→17:46)
[2022-05-05] MEDS: Ferrous Sulfate 325 MG Tablet PO (08:13)
[2022-05-05] MEDS: Aspirin 81 MG TAB.CHEW PO (08:13)
[2022-05-05] MEDS: Nystatin Powder 15gm Bottle 1 APPLIC TOPICAL ×2 (08:13→22:21)
[2022-05-05] MEDS: Menthol/Lanolin/Calamine/Znox 113 GM Tube 1 APPLIC TOPICAL ×2 (08:14→22:21)
[2022-05-05 11:50] LABS: Bedside Glucose 293 mg/dL (74-106)
[2022-05-05 16:00] VITALS: BP 119/56; PULSE 75; RESP 16; TEMP 35.9; O2SAT 99
--- NOTE | 2022-05-05 16:38 | NURSING ---
Updated patient in room and family by phone that staff member tested positive for covid.
[2022-05-05 16:46] LABS: Bedside Glucose 149 mg/dL (74-106)
[2022-05-05 22:00] VITALS: PULSE 74; RESP 16; O2SAT 96
[2022-05-05 22:20] LABS: Bedside Glucose 141 mg/dL (74-106)
[2022-05-05] MEDS: Atorvastatin Calcium 40 MG Tablet 80 MG PO (22:20)
[2022-05-06] MEDS: Clopidogrel Bisulfate 75 MG Tablet PO (06:18)
[2022-05-06] MEDS: Glucerna Shake 120 ML LIQUID PO ×4 (06:18→21:41)
[2022-05-06 06:36] LABS: Bedside Glucose 120 mg/dL (74-106)
[2022-05-06] MEDS: Insulin Lispro 100 UNIT/ML INSULN.PEN 11 UNIT SC ×3 (08:16→17:48)
[2022-05-06] MEDS: Aspirin 81 MG TAB.CHEW PO (08:17)
[2022-05-06] MEDS: metFORMIN HCl 1,000 MG Tablet 1000 MG PO ×2 (08:17→17:47)
[2022-05-06] MEDS: Insulin Glargine-YFGN 100 UNIT/ML Pen 17 UNIT SC ×2 (08:17→21:43)
[2022-05-06] MEDS: Ascorbic Acid 500 MG Tablet PO (08:17)
[2022-05-06] MEDS: Multivitamins,Therapeutic Tablet 1 TABLET PO (08:17)
[2022-05-06] MEDS: Ferrous Sulfate 325 MG Tablet PO (08:17)
[2022-05-06] MEDS: Juven (unflavored) Packet 1 PACKET PO ×2 (08:17→17:47)
[2022-05-06] MEDS: Menthol/Lanolin/Calamine/Znox 113 GM Tube 1 APPLIC TOPICAL ×2 (08:18→21:42)
[2022-05-06] MEDS: Nystatin Powder 15gm Bottle 1 APPLIC TOPICAL ×2 (08:18→21:42)
[2022-05-06 11:16] LABS: Bedside Glucose 181 mg/dL (74-106)
[2022-05-06 12:00] VITALS: BMI 33.0
[2022-05-06 14:38] VITALS: BP 109/63; PULSE 81; RESP 14; TEMP 36.2; O2SAT 97
--- NOTE | 2022-05-06 16:16 | PHA.CONS_ITS ---
TCU RX Drug Regimen Review Subjective: TCU April Note. 76 YOF hospitalized for Lisfranc amputation of right foot 03/21/[address] Zuñiga. Admitted to TCU with debility for strengthening and rehabilitation. Objective: Allergies oxycodone Allergy (Verified 04/24/22 14:36) Other CAUSES PT TO HALLUCINATE Current Medications Generic Name Dose Route Start Last Admin Trade Name Freq PRN Reason Stop Dose Admin Acetaminophen 1,000 mg 03/25/22 20:40 04/18/22 11:58 Acetaminophen 500 Mg Tablet PO 1,000 mg Q6H PRN PRN Administration Pain Score 1-3 Ascorbic Acid 500 mg 03/26/22 08:00 05/06/22 08:17 Ascorbic Acid 500 Mg [facility] Administration Aspirin 81 mg 03/26/22 08:00 05/06/22 08:17 Aspirin 81 Mg Tab.Chew PO 81 mg DAILYCM [facility] Administration Atorvastatin Calcium 80 mg 04/02/22 22:00 05/05/22 22:20 Atorvastatin Calcium 40 Mg Tablet PO 80 mg QHS [facility] Administration Bisacodyl 10 mg 03/25/22 20:39 Bisacodyl 10 Mg Suppository RC X1 PRN CONSTIPATION Calamine/Phenol 1 applic 04/02/22 10:00 05/06/22 08:18 Menthol/Lanolin/Calamine/Znox 113 Gm Tube TOPICAL 1 applic BID@1000,2200 [facility] Administration Protocol Clopidogrel Bisulfate 75 mg 03/26/22 06:00 05/06/22 06:18 Clopidogrel Bisulfate 75 Mg Tablet PO 75 mg DAILY [facility] Administration Ferrous Sulfate 325 mg 03/26/22 08:00 05/06/22 08:17 Ferrous Sulfate 325 Mg Tablet PO 325 [facility] Administration Insulin Glargine 17 unit 04/13/22 22:00 05/06/22 08:17 Insulin Glargine-Yfgn 100 Unit/Ml Pen SC 17 unit BID@0800,2200 [facility] Administration Insulin Human Lispro 11 unit 04/13/22 11:45 05/06/22 12:04 Insulin Lispro 100 Unit/Ml Insuln.Pen SC 11 u TIDAC [facility] Administration L-Arginine/L-Glutamine/Calcium HMB 1 packet 03/26/22 08:00 05/06/22 08:17 Pavel (Unflavored) Packet PO 1 packet BIDCM [facility] Administration Loperamide HCl 2 mg 04/09/22 17:40 Loperamide 2 Mg Capsule PO Q2H PRN PRN DIARRHEA/LOOSE STOOLS Magnesium Hydroxide 30 ml 03/25/22 20:39 Magnesium Hydroxide 30 Ml Udc PO X1 PRN Constipation Metformin HCl 1,000 mg 03/26/22 08:00 05/06/22 08:17 Metformin Hcl 1,000 Mg Tablet PO 1,000 mg BIDCM [facility] Administration Multivitamins 1 tablet 03/26/22 08:00 05/06/22 08:17 Multivitamins,Therapeutic Tablet PO 1 tablet DAILYCM [facility] Administration Nutritional Formula (Lactose Free) 120 ml 03/25/22 22:00 05/06/22 12:04 Glucerna Shake 120 Ml Liquid PO 120 ml 4X/DAY [facility] Administration Nystatin 1 applic 04/02/22 10:00 05/06/22 08:18 Nystatin Powder 15gm Bottle TOPICAL 1 applic BID@1000,2200 [facility] Administration Protocol Propranolol HCl 80 mg 03/25/22 18:53 Propranolol La 80 Mg Capsule PO DAILY PRN tremors Senna/Docusate Sodium 1 tablet 03/25/22 20:45 05/06/22 06:18 Senna/Docusate Sodium 1 Tablet PO Not Given BID [facility] Sodium Chloride 10 - 40 ml 03/25/22 19:17 04/06/22 06:02 0.9% Saline Lock 10 Ml Syringe IV 10 ml UD PRN Administration SALINE FLUSH Tramadol HCl 50 mg 03/25/22 20:41 04/18/22 20:20 Tramadol 50 Mg Tablet PO 50 mg Q6H PRN Administration Pain Score 4-10 Problem List (Last Reviewed 04/24/22 @ 15:[address] Terry Lopez MD) Peripheral arterial occlusive disease (Chronic) Iron deficiency anemia (Acute) Hyperlipidemia (Acute) Hypertension (Chronic) Debility (Acute) History of Lisfranc amputation of right foot (Acute) Acquired absence of other right toe(s) (Acute) Atherosclerosis of [place] arteries of extremities with gangrene, right leg (Chronic) Type 2 diabetes mellitus with diabetic polyneuropathy (Chronic) Obesity (BMI 30-39.9) (Chronic) Vital Signs Temp Pulse Resp BP Pulse Ox O2 Del Method O2 Flow Rate 97.1 F L 81 14 109/63 97 Room Air 93 05/06/22 14:38 05/06/22 14:38 05/06/22 14:38 05/06/22 14:38 05/06/22 14:38 05/06/22 14:38 04/16/22 14:00 Oxygen Flow Rate (L/min) 93 Oxygen Delivery Method Room Air Weight: 90.35 kg Body Mass Index (BMI) 33.1 Sodium 142 mmol/L (136-145) 04/30/22 05:28 Potassium 3.9 mmol/L (3.5-5.1) 04/30/22 05:28 Chloride 107 mmol/L (98-107) 04/30/22 05:28 Carbon Dioxide 26.0 mmol/L (21.0-32.0) 04/30/22 05:28 Anion Gap 9 (5-15) 04/30/22 05:28 BUN 45 mg/dL (7-18) H 04/30/22 05:28 Creatinine 0.87 mg/dL (0.55-1.02) 04/30/22 05:28 Est GFR (MDRD) Af Amer 82 mL/min (>60) 04/30/22 05:28 Est GFR (MDRD) Non-Af 67 mL/min (>60) 04/30/22 05:28 BUN/Creatinine Ratio 51.7 RATIO (10-20) H 04/30/22 05:28 Glucose 186 mg/dL (74-106) H 04/30/22 05:28 Assessment/Plan: 1. Pain: acetaminophen 1000mg PO Q6H PRN pain 1-3 and tramadol 50mg PO Q6H PRN pain 4-10. Last PRN doses of acetaminophen and tramadol on 04/18. Please continue to monitor for increased pain and PRN usage. 2. Bowel: senna/docusate 1T PO BID, bisacodyl 10mg RC x1 PRN constipation, MOM 30mL PO x1 PRN constipation and loperamide 2mg PO Q2H PRN loose stools/diarrhea. Resident has not had any PRN doses. Please consider changing senna/docusate from scheduled to PRN constipation. Resident has refused all but 3 doses since 04/16/22. Thanks. Please continue to monitor for constipation and PRN usage. Last documented bowel movement 03/24. 3. Iron deficiency anemia: ferrous sulfate 325mg PO daily and ascorbic acid 500mg PO daily. Please continue to monitor hemoglobin (last 11.2g/dL), dark stools and constipation. 4. Peripheral arterial occlusive disease: aspirin 81mg PO daily and clopidogrel 75mg PO daily. Please continue to monitor for S/S of bleeding and hemoglobin. 5. Hyperlipidemia: atorvastatin 80mg PO QHS. Please consider ordering a lipid panel if clinically appropriate. Resident does not have a lipid panel in the chart. Thanks. Please continue to monitor LFTs (last 01/31/22) and muscle pain. 6. Diabetes Mellitus II: metformin 1000mg PO BIDCM, insulin glargine 17units SC BID and insulin lispro 11units SC TIDAC. Please continue to monitor renal function, diarrhea, S/S of hypoglycemia, hemoglobin A1c (last 7.6% 03/05/22), and glucose (last 181mg/dL). 7. Essential tremor: propranolol LA 80mg PO daily PRN tremor. Resident has not had any doses so far. Please continue to monitor for tremor and PRN usage. 8. Nutrition: multivitamin 1T PO daily. Please continue to monitor. Assessment/Plan for indications treated with psychotropic medications: None Medical chart and medication regimen reviewed. The following medication irregularities or issues were identified: *1. Senna/docusate 1T PO BID. Please consider changing senna/docusate from sched uled to PRN constipation. Resident has refused all but 3 doses since 04/16/22. Thanks. Date of Note:: 05/06/22
[2022-05-06 16:20] LABS: Bedside Glucose 110 mg/dL (74-106)
[2022-05-06 21:00] VITALS: PULSE 78; RESP 16; O2SAT 96
[2022-05-06] MEDS: Atorvastatin Calcium 40 MG Tablet 80 MG PO (21:43)
[2022-05-06 22:01] LABS: Bedside Glucose 116 mg/dL (74-106)
[2022-05-07] MEDS: Glucerna Shake 120 ML LIQUID PO ×4 (05:12→21:29)
[2022-05-07] MEDS: Clopidogrel Bisulfate 75 MG Tablet PO (05:12)
--- NOTE | 2022-05-07 05:20 | NURSING ---
Patient noted to move legs back and forth, up and down through the night. Communication left for Dr. Negron regarding restless legs. Will continue to monitor.
[2022-05-07 05:51] LABS: Absolute Lymphocyte Count 4.39 X10^3/uL (0.83-4.51); Absolute Neutrophil Count 4.8 X10^3/uL (2.0-7.7); Basophil# 0.07 X10^3/uL; Basophil% 0.7 % (0-1); Eosinophil# 0.66 X10^3/uL; Eosinophils% 6.2 % (0-5); Hematocrit 36.8 % (37-47); Hemoglobin 11.3 g/dL (12.0-15.0); Lymphocyte # 4.39 X10^3/ul (0.83-4.51); Mean Corp Hgb Conc 30.7 g/dL (32-36); Mean Corpuscular Hgb 28.1 pg (27.0-32.0); Mean Corpuscular Volume 91.5 fL (81-99); Mean Platelet Vol. 12.2 fl (6.2-12.0); Monocyte# 0.81 X10^3/uL; Monocyte% 7.6 % (0-10); NRBC Flagged by Analyzer 0 % (0-5); Neutrophil # 4.75 X10^3/uL (2.7-7.7); Neutrophil % 44.2 % (47-70); Platelet Count 280 K/mm3 (150-450); RBC Distribution Width CV 16.2 % (11.6-14.6); RBC Distribution Width SD 55.2 fl (35.1-43.9); Red Blood Count 4.02 M/mm3 (4.2-5.4); White Blood Count 10.7 K/mm3 (4.4-11.0)
[2022-05-07 06:06] LABS: Anion Gap 8 (5-15); BUN 53 mg/dL (7-18); BUN/Creat Ratio 58.6 RATIO (10-20); Calcium,Total 10.5 mg/dL (8.5-10.1); Chloride 107 mmol/L (98-107); EST Glomerular Filtration Rate 65 mL/min (>60); Est Glom Filt Rate - Afr Amer 78 mL/min (>60); Estimated Creatinine Clearance 49.35 ml/min; Glucose 138 mg/dL (74-106); Potassium 4.1 mmol/L (3.5-5.1); Sodium Level 141 mmol/L (136-145)
[2022-05-07 06:31] LABS: Bedside Glucose 146 mg/dL (74-106)
[2022-05-07] MEDS: Insulin Lispro 100 UNIT/ML INSULN.PEN 11 UNIT SC ×3 (08:07→18:09)
[2022-05-07] MEDS: Aspirin 81 MG TAB.CHEW PO (08:08)
[2022-05-07] MEDS: Ferrous Sulfate 325 MG Tablet PO (08:08)
[2022-05-07] MEDS: Ascorbic Acid 500 MG Tablet PO (08:09)
[2022-05-07] MEDS: Insulin Glargine-YFGN 100 UNIT/ML Pen 17 UNIT SC ×2 (08:09→21:18)
[2022-05-07] MEDS: metFORMIN HCl 1,000 MG Tablet 1000 MG PO ×2 (08:09→21:17)
[2022-05-07] MEDS: Multivitamins,Therapeutic Tablet 1 TABLET PO (08:09)
[2022-05-07] MEDS: Juven (unflavored) Packet 1 PACKET PO ×2 (08:09→21:17)
[2022-05-07 11:36] LABS: Bedside Glucose 234 mg/dL (74-106)
[2022-05-07] MEDS: Menthol/Lanolin/Calamine/Znox 113 GM Tube 1 APPLIC TOPICAL ×2 (12:21→21:29)
[2022-05-07] MEDS: Nystatin Powder 15gm Bottle 1 APPLIC TOPICAL ×2 (12:21→21:30)
--- NOTE | 2022-05-07 12:44 | PCM.PROGNOTE ---
Subjective Subjective Patient is seen today sitting up in chair with feet elevated. She states she had just finished eating lunch. Family is present and visiting. Patient denies any constitutional symptoms. Denies any pain to the foot. Has no further complaints today. Objective Data Objective Data Vital Signs: Vital Signs Temp Pulse Resp BP Pulse Ox O2 Del Method O2 Flow Rate 97.1 F L 78 16 109/63 96 Room Air 93 05/06/22 14:38 05/06/22 21:00 05/06/22 21:00 05/06/22 14:38 05/06/22 21:00 05/07/22 10:00 04/16/22 14:00 Oxygen Flow Rate (L/min) 93 Oxygen Delivery Method Room Air Weight: 89.925 kg Body Mass Index (BMI) 33.0 Intake & Output: Intake and Output for Last 24 Hours 05/05/22 05/06/22 05/07/22 23:59 23:59 23:59 Intake Total 760 / 760 1080 / 1080 360 / 360 Balance 760 / 760 1080 / 1080 360 / 360 Lab / Micro Data Result Diagrams: 05/07/22 05:28 05/07/22 05:28 Labs: Laboratory Results - last 24 hr 05/06/22 15:58: POC Glucose 110 H 05/06/22 21:34: POC Glucose 116 H 05/07/22 05:28: WBC 10.7, RBC 4.02 L, Hgb 11.3 L, Hct 36.8 L, MCV 91.5, MCH 28.1, MCHC 30.7 L, RDW Std Deviation 55.2 H, RDW Coeff of Bety 16.2 H, Plt Count 280, MPV 12.2 H, Immature Gran % (Auto) 0.300, Neut % (Auto) 44.2 L, Lymph % (Auto) 41.0, [place] % (Auto) 7.6, Eos % (Auto) 6.2 H, Baso % (Auto) 0.7, Absolute Neuts (auto) 4.8, Absolute Lymphs (auto) 4.39, Nucleated RBC % 0 05/07/22 05:28: Sodium 141, Potassium 4.1, Chloride 107, Carbon Dioxide 26.0, Anion Gap 8, BUN 53 H, Creatinine 0.90, Estim Creat Clear Calc 49.35, Est GFR (MDRD) Af Amer 78, Est GFR (MDRD) Non-Af 65, BUN/Creatinine Ratio 58.6 H, Glucose 138 H, Calcium 10.5 H 05/07/22 06:01: POC Glucose 146 H 05/07/22 11:17: POC Glucose 234 H Micro: Microbiology 05/06/22 07:02 Nasal Secretion SARS-CoV-2 Antigen (Rapid) - Final 04/04/22 13:42 Stool Stool Occult Blood (MARINO) - Final 03/29/22 06:08 Nasal Secretion SARS-CoV-2 Antigen (Rapid) - Final 03/27/22 05:00 Nasal Secretion SARS-CoV-2 Antigen (Rapid) - Final Physical Exam Const alert, oriented x3, no apparent distress and well nourished General Appearance: cooperative HEENT normocephalic Eyes General Eye: normal appearance of both eyes Neck General: normal visual inspection Lymph Lymphatic: no lymphadenopathy noted and no lymphedema noted Resp normal respiratory effort Cardio regular rate and regular rhythm Extremity normal capillary refill, no joint enlargement, no calf tenderness and no pedal edema Extremity Narrative: Right lower extremity Lisfranc amputation noted. Distal stump appears healthy and well perfused with dried eschar about the incision margins. No signs of infection. There is a plantar lateral opening secondary to continuous serosanguineous drainage with breakdown of the skin. There is fibrotic tissue noted in the underlying wound. Skin no rashes or lesions noted, skin turgor normal and no jaundice Neuro moves all extremities Assessment & Plan Assessment/Plan (1) Obesity (BMI 30-39.9): (2) Type 2 diabetes mellitus with diabetic polyneuropathy: QUALIFIERS: Diabetes mellitus terminal operations manager insulin use: without terminal operations manager use Qualified Code(s): E11.42 - Type 2 diabetes mellitus with diabetic polyneuropathy (3) Atherosclerosis of [place] arteries of extremities with gangrene, right leg: (4) History of Lisfranc amputation of right foot: (5) Iron deficiency anemia: (6) Debility: PLAN: Plan Patient seen and evaluated Patient had undergone Lisfranc amputation of the right foot. DOS 03/21/2022. POD #47 She is admitted to transitional care unit to build strength and rehabilitation prior to being discharged home as well as remaining compliant with postoperative instructions and strict nonweightbearing status. Surgery 03/21/2022: During the debridement the remaining tissue was noted to be healthy and the remaining bone noted to be of good color and quality. Prior to closure site was irrigated with copious amounts of normal sterile saline, Irrisept, and 1 g of vancomycin powder was placed prior to closure. Surgical cultures from 03/21/2022: Cultures at time of surgery for both tissue and bone of the fourth metatarsal demonstrate PsA, Proteus, and E faecalis. ID recommending 1 week oral antibiotic ciprofloxacin and Augmentin. She has finished oral antibiotics. Today dressings were taken down and the distal amputation stump of the right foot is noted to have dried eschar about the incision margins. No signs of infection. There is adequate perfusion noted to the distal stump of the Lisfranc amputation site. Skin flap demonstrate darken with eschar around incision sites with slight purplish discoloration laterally, which is continuing to improve in color. There is a small area of dehiscence with yellow fibrotic tissue in the wound bed at the plantar lateral aspect draining serosanguineous fluid. Medial aspect of the skin flap demonstrates healthy appearance. Site continues to do well post-operative and denies pain. Edema continuing to improve. Dressings changed today consisting of Betadine, Aquacel Ag, 4 x 4 gauze, ABD x2, Kerlix. Patient to continue to elevate lower extremity at all times of rest to control postoperative edema. Discussed with her that she has a small area of dehiscence at the plantar aspect which we are treating with Aquacel Ag and she needs to continue to be mindful of edema and to not walk until cleared. Reminded her again that even though therapy is working with her for her strength and rehabilitation that she is to maintain a strict nonweightbearing status to the right lower extremity. I have discussed with her and family today that if she continues to undergo further dehiscence or becomes infected or the amputation and flap fail that she may require a below the knee amputation. Patient and family voiced understanding of our discussion. Patient did see Dr. Lopez 04/22/2022 in which he feels soft tissue flap does have adequate perfusion to the site in which eschar will slowly slough off. He has talked to her about proximal amputation if required. She does have another appointment with Dr. Lopez, vascular surgeon scheduled tomorrow, 05/08/22. Patient did state that she would like to go home soon. I did discuss risks involved pertaining to delayed healing, increased infection risk, proper diabetic diet and control as her sugars have increased when at home, and the fact that she may try to ambulate due to balance issues. I discussed I still feel that as she continues to heal that she is in the best spot however I understand current difficulties with family and maintaining presence here. Discussed in the event she did leave visiting nursing would be required for dressing changes every other day. Encourage protein diet with Pavel supplementation to aid healing. Also encouraged continued diabetic diet to maintain adequate control of sugars to aid healing. Wound nurse has been consulted for aid in dressing changes. Dressings to be changed every other day. I will continue to follow for postoperative management. Please not hesitate to call for any questions or concerns Jr. Fern Guerrero.P.M. [facility] [place] [phone]
[2022-05-07 14:21] VITALS: BP 102/60; PULSE 90; RESP 16; TEMP 35.8; O2SAT 96
--- NOTE | 2022-05-07 15:09 | CASEMGMT ---
Addendum entered by Sakshi Espino 05/07/22 16:02: Received return call from dtrAshli, that as long as Dr. Lopez appt on 05/08 goes well, pt plans to DC 05/10. IDT agreeable. Confirmed need for sabina, hospital bed and [facility]. [facility] contact family for pricing of DME. Referral sent to [facility] as they accept [facility]. Plan: DC home with family 05/10, [facility], [facility], hospital bed Addendum entered by Sakshi Espino 05/07/22 15:32: [facility] has both items in stock and can schedule delivery for a week day once DC date is determined. SWATI left message with dtrPao, to discuss. Original Note: Social Work Spoke with [facility]. Per liaison, family is ready to have pt discharged home. Pt has f/u appt with 05/08 then would like to DC. Pt needs a sabina lift and hospital bed. SWATI sent referral to [facility] to inquire about timeframe for delivery to set DC date. Will continue to follow. PURVI NashW
[2022-05-07 16:20] LABS: Bedside Glucose 131 mg/dL (74-106)
[2022-05-07] MEDS: Atorvastatin Calcium 40 MG Tablet 80 MG PO (21:29)
[2022-05-07] MEDS: Pramipexole Di-HCl 0.25 MG Tablet PO (21:36)
[2022-05-07 22:21] LABS: Bedside Glucose 116 mg/dL (74-106)
[2022-05-08] MEDS: Glucerna Shake 120 ML LIQUID PO ×4 (04:51→20:42)
[2022-05-08] MEDS: Clopidogrel Bisulfate 75 MG Tablet PO (04:52)
[2022-05-08 06:26] LABS: Bedside Glucose 121 mg/dL (74-106)
[2022-05-08] MEDS: Juven (unflavored) Packet 1 PACKET PO ×2 (08:06→18:16)
[2022-05-08] MEDS: Multivitamins,Therapeutic Tablet 1 TABLET PO (08:06)
[2022-05-08] MEDS: Ascorbic Acid 500 MG Tablet PO (08:06)
[2022-05-08] MEDS: Ferrous Sulfate 325 MG Tablet PO (08:07)
[2022-05-08] MEDS: metFORMIN HCl 1,000 MG Tablet 1000 MG PO ×2 (08:07→18:16)
[2022-05-08] MEDS: Aspirin 81 MG TAB.CHEW PO (08:07)
[2022-05-08] MEDS: Insulin Lispro 100 UNIT/ML INSULN.PEN 11 UNIT SC ×2 (08:07→18:15)
[2022-05-08] MEDS: Insulin Glargine-YFGN 100 UNIT/ML Pen 17 UNIT SC ×2 (08:09→21:22)
[2022-05-08 11:26] LABS: Bedside Glucose 97 mg/dL (74-106)
[2022-05-08] MEDS: Menthol/Lanolin/Calamine/Znox 113 GM Tube 1 APPLIC TOPICAL ×2 (12:10→20:43)
[2022-05-08] MEDS: Nystatin Powder 15gm Bottle 1 APPLIC TOPICAL ×2 (12:11→20:43)
--- NOTE | 2022-05-08 12:42 | MDS.RN ---
Pain interview for SUKI 05/10/22
[2022-05-08 14:28] VITALS: BP 116/61; PULSE 87; RESP 14; TEMP 36.3; O2SAT 98
[2022-05-08 16:35] LABS: Bedside Glucose 168 mg/dL (74-106)
--- NOTE | 2022-05-08 16:37 | NURSING ---
Pt had appointment with Dr. Lopez this afternoon, No new orders. Pt to follow up 2 weeks
[2022-05-08 17:47] VITALS: PULSE 94; RESP 16; O2SAT 98
--- NOTE | 2022-05-08 18:47 | DS.PCM_ITS ---
Providers Date of Admission: 03/25/22 Primary Care Physician: Dr. Keshav Lambert, Consultations 03/25/22 19:12 Consult: Onc/Wound/barber Routine Comment: S/P LISFRANC AMPUTATION X4 TOES LEFT FOOT 03/25/22 20:39 Consult: Podiatry Routine Consulting Provider: Elie Zuñiga Reason for Consult: s/p right lisfranc foot amputation. EMERGENT Consult: No MD Notified: Yes Date Notified: 03/26/22 Time Notified: 08:39 Method of Notification: Verbal Reason For Visit: PARTIAL FOOT AMBUTATION Diagnosis Discharge Diagnosis (1) Obesity (BMI 30-39.9): Status: Chronic Code(s): E66.9 - Obesity, unspecified (2) Type 2 diabetes mellitus with diabetic polyneuropathy: Status: Chronic Code(s): E11.42 - Type 2 diabetes mellitus with diabetic polyneuropathy Qualifiers: Diabetes mellitus custodial insulin use: without custodial use Qualified Code(s): E11.42 - Type 2 diabetes mellitus with diabetic polyneuropathy (3) Atherosclerosis of [place] arteries of extremities with gangrene, right leg: Status: Chronic Code(s): I70.261 - Atherosclerosis of [place] arteries of extremities with gangrene, right leg (4) History of Lisfranc amputation of right foot: Status: Acute Code(s): Z89.431 - Acquired absence of right foot (5) Iron deficiency anemia: Status: Acute Code(s): D50.9 - Iron deficiency anemia, unspecified (6) Debility: Status: Acute Code(s): R53.81 - Other malaise Plan 76 year old female with below past medical history significant for diabetes, osteomyelitis of right foot hospitalized for Lisfranc amputation of right foot 03/21/[address] Zuñiga, admitted to TCU with debility, here for rehabilitation, strengthening, prior to discharge home with family. * Debility - PT/OT. * Dysphagia - ST. * Pain - Tylenol 1000mg q6h prn pain (1-3), Tramadol 50mg q6h prn pain (4-10). * Bowel - senna/colace 1 tablet bid, Dulcolax 10mg pr x1 prn, MOM 30ml po x 1 prn, Loperamide 2mg q2h prn diarrhea. * Adult immunization - Administer pneumonia vaccine, covid19 vaccine, flu vaccine as appropriate. * DVT prophylaxis - Hold, anemic, on dual antiplatelet therapy. * Osteomyelitis right foot status post lisfranc amputation - Dr. Zuñiga on [address], may require right BKA in future. * Iron deficiency anemia - Ferrous sulfate 325mg daily, Vitamin C 500mg daily. * Peripheral arterial occlusive disease - Aspirin 81mg daily, Plavix 75mg daily. * Hyperlipidemia - Atorvastatin 80mg qhs. * Nutrition - Glucerna Shake 120ml 4x/day, Pavel 1 packet bid, MVI daily. * Diabetes Mellitus II - Metformin 1000mg bidcm, Glargine 17 units bid, Lispro 11 units tidac. * Skin irritation - Calmoseptine topical bid. * Tinea Corporis - Nystatin powder topical bid, Fluconazole 150mg po qweek x 4 weeks, Ketconazole cream topical bid. * Essential tremor - Propranolol 80mg daily prn. Medications at Discharge Home Medications acetaminophen 325 mg tablet (Tylenol) 650 mg PO Q6H PRN PRN Pain 1-10 Or Fever #0 tabs 11/13/21 ascorbic acid (vitamin C) 500 mg tablet (Vitamin C) 500 mg PO DAILY SUPPLEMENT 01/13/22 metformin 1,000 mg tablet 1,000 mg PO BID BLOOD SUGAR 01/28/22 multivitamin 1 tab PO DAILY SUPPLEMENT 01/28/22 propranolol 80 mg capsule,24 hr,extended release 80 mg PO DAILY PRN tremors ferrous sulfate 325 mg (65 mg iron) tablet 325 mg PO DAILY ANEMIA #90 tabs 03/05/22 aspirin 81 mg capsule 81 mg PO DAILY heart 03/14/22 atorvastatin 80 mg tablet 80 mg PO DAILY cholesterol 03/25/22 clopidogrel 75 mg tablet (Plavix) 75 mg PO DAILY blood thinner 03/25/22 menthol 0.44 %-zinc oxide 20.6 % topical ointment (Calmoseptine) 1 applic topical BID skin breakdown 03/25/22 arginine 7 gram-glutam 7 gram-CaHMB 1.5 [id number] oral pwd pkt (Pavel (with collagen)) 1 packet PO BIDCM 30 days #60 ea 05/08/22 insulin glargine-yfgn 100 unit/mL (3 mL) subcutaneous pen 17 unit (0.17 mL) subcut BID@0800,2200 #0 mL 05/08/22 insulin lispro 100 unit/mL subcutaneous pen (Humalog KwikPen (U-100) Insulin) 11 unit (0.11 mL) subcut TIDAC 30 days #10 mL 05/08/22 nystatin 100,000 unit/gram topical powder (Nyamyc) 1 applic topical BID@1000,2200 30 days #50 grams 05/08/22 pramipexole 0.25 mg tablet 0.25 mg PO QHS 30 days #30 tabs 05/08/22 Hospital Course Operations - (See below.) Procedures None Summary of Care Provided Minutes Spent on Discharge: 35 Hospital Course: 76 year old female with below past medical history significant for diabetes, osteomyelitis of right foot hospitalized for Lisfranc amputation of right foot 03/21/[address] Zuñiga, admitted to TCU with debility, here for rehabilitation, strengthening, prior to discharge home with family. Discharge home with family 05/10/2022, [facility], Hospital Bed. Physical Exam Const alert General Appearance: cooperative HEENT normocephalic Eyes PERRL and EOMs intact bilaterally Neck supple, no JVD and no carotid bruits Resp normal respiratory effort, normal air movement and clear to auscultation bilaterally Cardio regular rate and regular rhythm GI normal to inspection, nondistended, normoactive bowel sounds, non-tender and non-distended Extremity normal capillary refill Extremity Narrative: Right lower extremity dressed. General Extremity: Negative for edema Skin no rashes or lesions noted General Skin Exam: no breakdown Psych affect normal Appearance: appropriate Weight / BMI Weight Weight: 89.925 kg Body Mass Index (BMI) 33.0 ABG / Lab / Microbiology Data Result Diagrams: 05/07/22 05:28 05/07/22 05:28 Laboratory: Laboratory Results - last 24 hr 05/07/22 22:01: POC Glucose 116 H 05/08/22 05:55: POC Glucose 121 H 05/08/22 11:05: POC Glucose 97 05/08/22 16:10: POC Glucose 168 H Microbiology: Microbiology 05/06/22 07:02 Nasal Secretion SARS-CoV-2 Antigen (Rapid) - Final 04/04/22 13:42 Stool Stool Occult Blood (MARINO) - Final 03/29/22 06:08 Nasal Secretion SARS-CoV-2 Antigen (Rapid) - Final 03/27/22 05:00 Nasal Secretion SARS-CoV-2 Antigen (Rapid) - Final D/C Instructions Discharge Diet: No restrictions Weight Bearing Status: No weight bearing (Right lower extremity.) Call your doctor if you observe: Fever of 101 or Higher, Inability to urinate, Inability to have a bowel movement, Shortness of breath, Dizziness, Fainting spells, Swelling in the ankles, Chest pain and Uncontrolled pain Additional Instructions: Discharge home with family 05/10/2022, [facility], [facility] Bed. Please Follow Up With: Elie Zuñiga When: As scheduled. Meaningful Use Info Meaningful Use Diagnoses (Choose all that apply): None applicable Discharge Plan Admission Admit Date/Time: 03/25/22 18:41 Primary Reason for Your Visit: Debility. Attending Provider: Manan Negron Chi Primary Care Provider: Keshav Lambert Consulting Providers: Elie Zuñiga Instructions Additional Instructions / Restrictions: Discharge home with family 05/10/2022, [facility], [facility] Bed. Discharge Orders/Prescriptions Prescriptions: New pramipexole 0.25 mg Tablet 0.25 mg PO QHS 30 Days Qty: 30 0RF nystatin [Nyamyc] 100,000 unit/gram Powder 1 applic topical BID@1000,2200 30 Days Qty: 50 0RF Protocol: *Topical Application Instructions APPLICATION INSTRUCTIONS: abdominal folds, under breasts insulin lispro [Humalog KwikPen Insulin] 100 unit/mL Insulin Pen 11 unit subcut TIDAC 30 Days Qty: 10 0RF Pavel (with collagen) 7-7-1.5 gram Powder In Packet 1 packet PO BIDCM 30 Days Qty: 60 0RF insulin glargine-yfgn 100 unit/mL (3 mL) Insulin Pen 17 unit subcut BID@0800,2200 Qty: 0 0RF Continued ferrous sulfate 325 mg (65 mg iron) tablet 325 mg PO DAILY Qty: 90 2RF acetaminophen [Tylenol] 325 mg Tablet 650 mg PO Q6H PRN PRN (Reason: Pain 1-10 Or Fever) Qty: 0 0RF ascorbic acid (vitamin C) [Vitamin C] 500 mg Tablet 500 mg PO DAILY multivitamin Tablet 1 tab PO DAILY metformin 1,000 mg tablet 1,000 mg PO BID propranolol 80 mg capsule,extended release 24 hr 80 mg PO DAILY PRN (Reason: tremors) Rx Instructions: Daily in the A.M. as needed for tremor aspirin 81 mg Capsule 81 mg PO DAILY atorvastatin 80 mg tablet 80 mg PO DAILY clopidogrel [Plavix] 75 mg tablet 75 mg PO DAILY menthol-zinc oxide [Calmoseptine] 0.44-20.6 % ointment 1 applic topical BID Protocol: *Topical Application Instructions APPLICATION INSTRUCTIONS: buttocks Discontinued lisinopril 10 mg tablet 10 mg PO DAILY amlodipine 5 mg Tablet 5 mg PO DAILY tramadol 50 mg tablet 50 mg PO Q6H PRN (Reason: pain) 7 Days Qty: 28 0RF tramadol 50 mg Tablet 50 mg PO Q6H PRN PRN (Reason: Pain Score 6-10) Qty: 20 0RF ciprofloxacin HCl [Cipro] 500 mg tablet 500 mg PO BID Qty: 14 0RF amoxicillin-pot clavulanate 875-125 mg tablet 1 tab PO BID Qty: 14 0RF Rx Instructions: take with food ciprofloxacin HCl 500 mg tablet 500 mg PO BID nystatin [Nyamyc] 100,000 unit/gram powder 1 applic topical BID Protocol: *Topical Application Instructions APPLICATION INSTRUCTIONS: groin, abdominal folds amoxicillin-pot clavulanate 875-125 mg tablet 875 mg PO BID insulin glargine-yfgn 100 unit/mL (3 mL) insulin pen 15 unit subcut BID Referrals / Follow Up: Keshav Lambert DO [Primary Care Provider] - Disposition Disposition (needs filled in before D/C Order can be placed): Home Health Service
[2022-05-08] MEDS: Pramipexole Di-HCl 0.25 MG Tablet PO (20:44)
[2022-05-08] MEDS: Atorvastatin Calcium 40 MG Tablet 80 MG PO (20:44)
[2022-05-08 21:35] LABS: Bedside Glucose 154 mg/dL (74-106)
[2022-05-09] MEDS: Glucerna Shake 120 ML LIQUID PO ×4 (05:41→21:49)
[2022-05-09] MEDS: Clopidogrel Bisulfate 75 MG Tablet PO (05:41)
[2022-05-09 06:30] LABS: Bedside Glucose 151 mg/dL (74-106)
[2022-05-09] MEDS: Multivitamins,Therapeutic Tablet 1 TABLET PO (08:25)
[2022-05-09] MEDS: Aspirin 81 MG TAB.CHEW PO (08:25)
[2022-05-09] MEDS: Ferrous Sulfate 325 MG Tablet PO (08:25)
[2022-05-09] MEDS: metFORMIN HCl 1,000 MG Tablet 1000 MG PO ×2 (08:25→18:30)
[2022-05-09] MEDS: Ascorbic Acid 500 MG Tablet PO (08:25)
[2022-05-09] MEDS: Insulin Lispro 100 UNIT/ML INSULN.PEN 11 UNIT SC ×3 (08:25→18:30)
[2022-05-09] MEDS: Juven (unflavored) Packet 1 PACKET PO ×2 (08:25→18:30)
[2022-05-09] MEDS: Insulin Glargine-YFGN 100 UNIT/ML Pen 17 UNIT SC ×2 (08:26→21:49)
[2022-05-09] MEDS: Nystatin Powder 15gm Bottle 1 APPLIC TOPICAL ×2 (08:27→21:54)
[2022-05-09] MEDS: Menthol/Lanolin/Calamine/Znox 113 GM Tube 1 APPLIC TOPICAL ×2 (08:28→21:55)
[2022-05-09 11:01] LABS: Bedside Glucose 177 mg/dL (74-106)
--- NOTE | 2022-05-09 13:50 | WOUNDNOTE ---
wound photo: right foot
--- NOTE | 2022-05-09 13:50 | WOUNDNOTE ---
wound photo: right foot
--- NOTE | 2022-05-09 13:51 | WOUNDNOTE ---
wound photo: right foot
--- NOTE | 2022-05-09 14:26 | CASEMGMT ---
Social Work BIMS (12/24) and PHQ-9 () completed for MDS assessment. Sakshi Espino MSW [employer]
[2022-05-09 15:00] VITALS: BP 116/57; PULSE 85; RESP 19; TEMP 36.4; O2SAT 97
[2022-05-09 16:25] LABS: Bedside Glucose 78 mg/dL (74-106)
[2022-05-09 21:50] LABS: Bedside Glucose 112 mg/dL (74-106)
[2022-05-09] MEDS: Atorvastatin Calcium 40 MG Tablet 80 MG PO (21:50)
[2022-05-09] MEDS: Pramipexole Di-HCl 0.25 MG Tablet PO (21:56)
[2022-05-10] MEDS: Clopidogrel Bisulfate 75 MG Tablet PO (06:15)
[2022-05-10] MEDS: Glucerna Shake 120 ML LIQUID PO (06:15)
[2022-05-10 06:56] LABS: Bedside Glucose 127 mg/dL (74-106)
[2022-05-10] MEDS: Aspirin 81 MG TAB.CHEW PO (08:11)
[2022-05-10] MEDS: Insulin Lispro 100 UNIT/ML INSULN.PEN 11 UNIT SC (08:11)
[2022-05-10] MEDS: metFORMIN HCl 1,000 MG Tablet 1000 MG PO (08:11)
[2022-05-10] MEDS: Ascorbic Acid 500 MG Tablet PO (08:11)
[2022-05-10] MEDS: Juven (unflavored) Packet 1 PACKET PO (08:11)
[2022-05-10] MEDS: Multivitamins,Therapeutic Tablet 1 TABLET PO (08:11)
[2022-05-10] MEDS: Ferrous Sulfate 325 MG Tablet PO (08:11)
[2022-05-10] MEDS: Insulin Glargine-YFGN 100 UNIT/ML Pen 17 UNIT SC (08:14)
[2022-05-10 09:31] VITALS: PULSE 88; RESP 18; O2SAT 93
[2022-05-10 10:18] VITALS: BP 110/60; PULSE 88; RESP 18; TEMP 36.2; O2SAT 93
== END 2022-05-10 10:19 | disposition home health service (06) | DRG 560 ==
PROVIDERS: Admitting Provider Family Medicine Geriatric Medicine; PCP Family Medicine; Visit Provider Family Medicine Geriatric Medicine
DX: Z47.81 Encounter for orthopedic aftercare following surgical amputation (principal); M86.8X7 Other osteomyelitis, ankle and foot; E11.52 Type 2 diabetes mellitus with diabetic peripheral angiopathy with gangrene; L97.512 Non-pressure chronic ulcer of other part of right foot with fat layer exposed; E11.22 Type 2 diabetes mellitus with diabetic chronic kidney disease; B35.4 Tinea corporis; E11.42 Type 2 diabetes mellitus with diabetic polyneuropathy; E11.69 Type 2 diabetes mellitus with other specified complication; E11.621 Type 2 diabetes mellitus with foot ulcer; Z79.4 Long term (current) use of insulin; Z89.431 Acquired absence of right foot; D50.9 Iron deficiency anemia, unspecified; N18.2 Chronic kidney disease, stage 2 (mild); E78.5 Hyperlipidemia, unspecified; I12.9 Hypertensive chronic kidney disease with stage 1 through stage 4 chronic kidney disease, or unspecified chronic kidney disease; G25.0 Essential tremor; Z79.84 Long term (current) use of oral hypoglycemic drugs; Z79.82 Long term (current) use of aspirin; Z79.899 Other long term (current) drug therapy; Z79.02 Long term (current) use of antithrombotics/antiplatelets; E66.9 Obesity, unspecified; Z68.35 Body mass index [BMI] 35.0-35.9, adult
CPT/HCPCS: 36415; 74018; 80048; 82274; 82962; 85014; 85018; 85025; 86920; 86922; 87811; 92610; 97110; 97162; 97166; 97530; 97535; 97802; A4216

== ENCOUNTER → 2022-04-03 | Outpatient (CLI) | payer OTHER, SELFPAY ==
[2022-04-03] VITALS (7 sets, daily range): BP systolic 89–108; BP diastolic 43–63; PULSE 84–92; RESP 12–16; TEMP 36.2–36.7; O2SAT 94–98
[2022-04-03] MEDS: 0.9% NaCl Peripheral Flush Adult/Peds IV ×2 (11:40→16:11)
[2022-04-04 11:30] LABS: Bedside Glucose 238 mg/dL (74-106)
== END | disposition home or self-care (01) ==
LOC: MEDOUTP 10:58
PROVIDERS: PCP Family Medicine; Referring Provider Family Medicine Geriatric Medicine; Visit Provider Family Medicine Geriatric Medicine
DX: D64.89 Other specified anemias (principal); E83.111 Hemochromatosis due to repeated red blood cell transfusions
CPT/HCPCS: 96372; 96361; 36415; 36430; 82962; 86850; 86900; 86901; 86920; 86922; J7040; P9016; A4216

== ENCOUNTER → 2022-07-02 | Outpatient (CLI) | payer SELFPAY ==
--- NOTE | 2022-07-02 12:48 | ART_ITS ---
Reason For Study: Atherosclerosis, s/p popliteal angioplasty Procedure A bilateral lower extremity continuous wave Doppler with analog waveform analysis and ankle brachial indexes. Technically difficult due to test being performed in wheelchair in sitting position. Left Segmental Pressures Left brachial= 69mmHg. Left posterior tibial artery = 64mmHg. Left dorsalis pedis artery = >254mmHg. The left dorsalis pedis waveforms are biphasic. The left posterior tibial artery waveforms are biphasic. Right Segmental Pressures Right brachial= 68mmHg. Right posterior tibial artery = 42mmHg. Right dorsalis pedis artery = 68mmHg. The right dorsalis pedis waveforms are monophasic. The right posterior tibial artery waveforms are monophasic. Indices The right ankle brachial index by the dorsalis pedis is 0.99. The right ankle brachial index by the posterior tibial artery is 0.61. The left ankle brachial index by the dorsalis pedis is NC. The left ankle brachial index by the posterior tibial artery is 0.93. VL/Ankle Brachial Index Interpretation Summary Right KYM 0.99, artificially elevated due to non-compressible vessels. Doppler/ PVR waveforms of the right ankle moderately diminished. Left KYM 0.93, artificially elevated due to non-compressible vessels. Doppler/P VR waveforms of the left leg normal at rest. Ordering Physician: Precious Jackman Referring Physician: Ej Lambert M.D. Performed By: Jes Auguste RVT
--- NOTE | 2022-07-02 12:48 | ADUL_ITS ---
Reason For Study: Atherosclerosis, s/p popliteal angioplasty Right Velocities Ext. Iliac Artery, dist = 91.1 cm./sec. Common Femoral Artery, mid = 71.1 cm./sec. Supf Femoral Artery, prox = 45 cm./sec. SFA prox/mid, 129.5 cm/sec. SFA mid, 87.5 cm/sec. SFA distal, prox to stenosis, 50.2 cm/sec. SFA distal, at stenosis, 193.6 cm/sec. Profunda Femoral Artery = 40.6 cm./sec. Popliteal Artery, mid = 35.1 cm./sec. Post. Tibial Artery, prox = 29.6 cm./sec. RIVER TESTER mid-dist, No flow. PeroA prox, No flow, PeroA mid, 32.2 cm/sec. PeroA distal, No flow. RUTH prox, 17.4 cm/sec. RUTH mid, No flow. RUTH distal, 28.7 cm/sec. Procedure Exam performed in department. Technically difficult due to test being performed in wheelchair in sitting position. VL/US Art Duplex Unilat Lower Ext Interpretation Summary Right superficial femoral artery with stenosis distally. Diminished velocities and waveforms distall to lesion.. Distal tibial occlusions Ordering Physician: Precious Jackman Referring Physician: Ej Lambert M.D. Performed By: Jes Auguste RVT
== END | disposition home or self-care (01) ==
PROVIDERS: PCP Family Medicine; Referring Provider Physician Assistant; Visit Provider Physician Assistant
DX: I77.9 Disorder of arteries and arterioles, unspecified (principal); Z48.812 Encounter for surgical aftercare following surgery on the circulatory system
CPT/HCPCS: 93922; 93926

== ENCOUNTER 2022-07-23 06:23 | Day surgery (SDC) | payer SELFPAY, OTHER ==
[2022-07-22 07:50] VITALS: BMI 34.0
[2022-07-23 06:48] LABS: Hematocrit 37.3 % (37-47); Hemoglobin 11.2 g/dL (12.0-15.0); Mean Corpuscular Hgb 29.4 pg (27.0-32.0); Mean Corpuscular Volume 97.9 fL (81-99); Mean Platelet Vol. 11.3 fl (6.2-12.0); Platelet Count 392 K/mm3 (150-450); RBC Distribution Width CV 16.4 % (11.6-14.6); RBC Distribution Width SD 58.2 fl (35.1-43.9); Red Blood Count 3.81 M/mm3 (4.2-5.4); White Blood Count 10.2 K/mm3 (4.4-11.0)
[2022-07-23 06:59] LABS: Anion Gap 6 (5-15); BUN 29 mg/dL (7-18); BUN/Creat Ratio 16.9 RATIO (10-20); Calcium,Total 10.7 mg/dL (8.5-10.1); Chloride 119 mmol/L (98-107); Creatinine, Serum 1.72 mg/dL (0.55-1.02); EST Glomerular Filtration Rate 31 mL/min (>60); Est Glom Filt Rate - Afr Amer 37 mL/min (>60); Estimated Creatinine Clearance 25.43 ml/min; Glucose 164 mg/dL (74-106); Potassium 5.2 mmol/L (3.5-5.1); Sodium Level 143 mmol/L (136-145)
--- NOTE | 2022-07-23 10:37 | OP.PCM_ITS ---
Report of Operation Date of Procedure: 07/23/22 Pre-Operative Diagnosis: atherosclerosis with ulceration right lower extremity Post-Operative Diagnosis: same Surgery/Procedure Performed:: aortogram, RLE runoff right sfa/popliteal atherectomy/DCB right popliteal/TP trunk/peroneal thrombectomy IVUS right common femoral, SFA/popliteal, TP trunk, peroneal Surgeon: Terry Lopez Type of Anesthesia: Local and Sedation,Conscious Estimated Blood Loss (mL): 20 Description of Procedure: HPI: Patient is a 77-year-old female with recurrent atherosclerotic occlusive disease of the right lower extremity with a prior forefoot amputation which has worsened in appearance requiring potential debridement. She had an arterial duplex which revealed stenosis of the prior intervention in the popliteal artery and she is taken now for angiogram with possible intervention. Description of procedure: Upon obtaining form consent and verification correct patient procedure site patient taken to the [facility] where she was positioned prepped and draped in usual fashion. Time was performed conscious sedation was administered with Versed and fentanyl. Skin overlying the left common femoral artery was anesthetized with 1% lidocaine and the vessel accessed under ultrasound guidance in retrograde fashion with a micropuncture needle wire. This was then changed out for micropuncture sheath which hand-injection angiograms performed revealing satisfactory placement no extravasation or dissection. Through the micropuncture sheath Bentson wire is advanced abdominal aorta and the micropuncture sheath exchanged out for a short 6 [place] sheath. Through the 6 [place] sheath Omni Flush catheter was advanced in the aorta and an aortogram pelvic angiogram was performed. We then navigated the contralateral iliac system advancing our catheter in the distal external iliac artery from which point sequential right lower extremity angiography was performed which revealed long segment restenosis of the distal popliteal artery and a peroneal artery single-vessel runoff. Bentson wire then readvanced to the catheter and positioned in the distal SFA and the catheter was withdrawn and the short 6 [place] sheath exchanged out for a 6 [place] destination sheath. Patient was then heparinized allowed to circulate for 3 minutes after which a Bentson wire and quick cross catheter were used to navigate across the area of disease into the distal popliteal artery. An injection of the catheter revealed position within the true lumen and nondiseased distal popliteal artery. Next the [place] wire was advanced via the catheter and the catheter was withdrawn and the intravascular sound probe advanced and recorded pullback performed the right peroneal artery, TP trunk artery, SFA popliteal, common femoral artery. This confirmed more to the tandem lesion restenosis with a near total occlusion of the popliteal artery. This felt this appropriate for rotational atherectomy so a Mobile[employer]HQ [place] rotational atherectomy device was brought in field prep for quarter lining smoother instructions. This was then advanced over the wire and engaged over the lesion for 2 passes. The device was then withdrawn and repeat angiography revealed satisfactory luminal gain with no extravasation or dissection. The [place] wire was then exchanged for a Bard bare wire and a Emboshield distal protection filter advanced in the position of the popliteal and deployed. The lesion was then angioplastied with a 5 mm x 150 stefania angioplasty balloon for 2 length across the lesion. The balloon was then deflated withdrawn and repeat angiography revealed satisfactory response with no extravasation no dissection and no residual stenosis. Next a Bard Dottie tonics 5 x 300 angioplasty balloon paclitaxel coated was advanced over the wire and inflated to nominal for 3 minutes across the lesion and then deflated withdrawn. Completion angiography revealed slow transit of contrast but no residual stenosis or dissection within the treated segment. The filter was then recaptured and while maintaining wire access in the event that the filter was clogged and repeat angiography again confirmed slow transit. Because catheter was then advanced over the wire and the wire withdrawn and hand-injection angiography within the popliteal artery via the catheter revealed abrupt occlusion of the tibioperoneal trunk with what appeared to be embolic debris. This was attempted be aspirated with the quick cross catheter without success so the MobileDevHQ aspiration catheter was then brought to field prep for quarter lining smoother instructions. This was then advanced over the wire into position in the peroneal artery and aspiration performed across the peroneal, tibioperoneal trunk, and popliteal artery. The aspiration catheter was then withdrawn and repeat angiography angiography revealed satisfactory removal of the embolic material with brisk contrast transit through the SFA popliteal and the peroneal artery down to the foot. The 6 [place] sheath was then exchanged for short 6 [place] sheath and a minx closure device deployed followed by 2 minutes of manual pressure.
[2022-07-23 11:51] LABS: ACT Activated Clotting Time 251 sec (74-137)
[2022-07-23 11:51] LABS: ACT Activated Clotting Time 257 sec (74-137)
== END 2022-07-23 14:35 | disposition home or self-care (01) ==
PROVIDERS: PCP Family Medicine; Referring Provider Surgery Trauma Surgery; Visit Provider Surgery Trauma Surgery
DX: E11.51 Type 2 diabetes mellitus with diabetic peripheral angiopathy without gangrene (principal); I70.239 Atherosclerosis of native arteries of right leg with ulceration of unspecified site; E11.622 Type 2 diabetes mellitus with other skin ulcer; Z89.431 Acquired absence of right foot; L97.919 Non-pressure chronic ulcer of unspecified part of right lower leg with unspecified severity; E11.22 Type 2 diabetes mellitus with diabetic chronic kidney disease; E11.40 Type 2 diabetes mellitus with diabetic neuropathy, unspecified; Z79.4 Long term (current) use of insulin; Z79.82 Long term (current) use of aspirin; Z79.899 Other long term (current) drug therapy; Z79.01 Long term (current) use of anticoagulants; I12.9 Hypertensive chronic kidney disease with stage 1 through stage 4 chronic kidney disease, or unspecified chronic kidney disease; N18.2 Chronic kidney disease, stage 2 (mild); I25.10 Atherosclerotic heart disease of native coronary artery without angina pectoris; Z79.02 Long term (current) use of antithrombotics/antiplatelets
CPT/HCPCS: 36200; 36245; 36415; 37184; 37185; 37225; 37252; 37253; 75625; 75710; 76937; 80048; 85027; 85347; 99152; 99153; C1724; C1725; C1753; C1760; C1769; C1884; C2623; J7040; Q9967; C1757; C1887; C1894

== ENCOUNTER → 2022-08-26 | Outpatient (CLI) | payer OTHER, SELFPAY ==
--- NOTE | 2022-08-26 08:50 | ADUL_ITS ---
Reason For Study: RLE Atherosclerosis Right Velocities Ext. Iliac Artery, dist = 94.2 cm./sec. Common Femoral Artery, mid = 89.8 cm./sec. Supf Femoral Artery, prox = 81.0 cm./sec. Supf Femoral Artery, mid = 67.8 cm./sec. Supf Femoral Artery, dist. = 48.1 cm./sec. Profunda Femoral Artery = 116.1 cm./sec. Popliteal Artery, mid = 43.7 cm./sec. Post. Tibial Artery, prox = 63.4 cm./sec. Post. Tibial Artery, mid = Unable to doppler due to calcification cm./sec. Post. Tibial Artery, dist = 50.0 cm./sec. Peroneal Artery, prox = 52.8 cm./sec. Peroneal Artery, mid = 50.0 cm./sec. Peroneal Artery,dist = 50.9 cm./sec. Ant. Tibial Artery, prox = 59.4 cm./sec. Ant. Tibial Artery, mid = unable to doppler due to calcification. cm./sec. Ant. Tibial Artery, dist = 61.3 cm./sec. Procedure The exam was of fair technical quality due to patient positioning and calcified shadowing of arteries. VL/US Art Duplex Unilat Lower Ext Interpretation Summary Right lower extremity arteries patent with normal velocities and no stenosis id entified. Prior right popliteal stenosis resolved Right posterior tibial artery not visualized due to calcific shadowing. Ordering Physician: Terry Lopez Referring Physician: Ej Lambert M.D. Performed By: Lawson Muro T
--- NOTE | 2022-08-26 08:50 | ART_ITS ---
Reason For Study: Atherosclerosis RLE Procedure A bilateral lower extremity continuous wave Doppler with analog waveform analysis and ankle brachial indexes. Left Segmental Pressures Left brachial= 118mmHg. Left posterior tibial artery = >254mmHg. Left dorsalis pedis artery = >254mmHg. Left digit = 137 mmHg. The left posterior tibial artery waveforms are biphasic. The left dorsalis pedis waveforms are biphasic. Right Segmental Pressures Right brachial= 117mmHg. Right posterior tibial artery = >254mmHg. Right dorsalis pedis artery = 122mmHg. The right posterior tibial artery waveforms are biphasic. The right dorsalis pedis waveforms are biphasic. Indices The right ankle brachial index by the posterior tibial artery is N/C. The right ankle brachial index by the dorsalis pedis is 1.03. The left ankle brachial index by the posterior tibial artery is N/C. The left ankle brachial index by the dorsalis pedis is N/C. The left digital-brachial index is 1.16. VL/Ankle Brachial Index Interpretation Summary Right KYM 1.03, normal. Doppler/PVR waveforms of the right ankle mildly diminis hed at rest. Improved from previous study Left KYM not able to be obtained due to non compressible vessels. Doppler/PVR w aveforms of the left ankle mildly diminished at rest. Ordering Physician: Terry Lopez Referring Physician: Ej Lambert M.D. Performed By: Lawson Muro, RVT
== END | disposition home or self-care (01) ==
LOC: CVS 08:48
PROVIDERS: PCP Family Medicine; Referring Provider Surgery Trauma Surgery; Visit Provider Surgery Trauma Surgery
DX: I70.261 Atherosclerosis of native arteries of extremities with gangrene, right leg (principal); Z48.812 Encounter for surgical aftercare following surgery on the circulatory system
CPT/HCPCS: 93922; 93926